=== PATIENT | female | born 1935 | race Caucasian/White ===

== ENCOUNTER 2016-07-03 17:57 | Inpatient (IN) ==
[2016-07-03 18:35] LABS: Bilirubin,Urine Negative (Negative); Blood,Urine Negative (Negative); Clarity,Urine Clear (Clear); Color,Urine Yellow (Yellow); Glucose,Urine (UA) Normal (Normal); Ketones,Urine Negative (Negative); Leukocyte Esterase,Urine Negative (Negative); Nitrite,Urine Negative (Negative); Protein,Urine Negative (Neg-Trace); Specific Gravity,Urine 1.013 (1.010-1.025); Urobilinogen,Urine Normal (Normal)
--- NOTE | 2016-07-03 19:08 | Emergency Department Note ---
Disposition Clinical Impression: Hip fracture, right Disposition: Admitted As Inpatient Condition: Good Fall HPI - General Chief Complaint: ED Fall Stated Complaint: FALL Source: patient, EMS Nursing Notes Reviewed: Yes Vital Signs Reviewed: Yes - History of Present Illness HPI Narrative: Patient presents with complaint of right hip pain status post fall. Patient states she was slip and fall and hit her side. Patient denies loss of consciousness denies head injury. Patient complains of pain in her hip and inability to ambulate. Patient denies numbness numbness or tingling denies bowel bladder dysfunction associated with this. Patient denies shortness of breath denies cough. She denies dizziness or vision changes. - Related Data Home Medications Medication Instructions Recorded Confirmed Budesonide/Formoterol 160/4.5 2 puff IH BID 02/20/15 02/22/16 [Symbicort] Clopidogrel [Plavix] 75 mg PO DAILY 02/20/15 02/22/16 Furosemide [Lasix] 40 mg PO DAILY 02/20/15 02/22/16 Potassium Chloride 20 meq PO DAILY 02/20/15 02/22/16 Tiotropium [Spiriva] 18 mcg IH DAILY 02/20/15 02/22/16 TraMADol [Ultram] 50 mg PO Q6HR PRN 02/20/15 02/22/16 BuPROPion SR (12 HR) [Wellbutrin 150 mg PO BID 03/25/15 02/22/16 SR] Sertraline [Zoloft] 100 mg PO DAILY 03/25/15 02/22/16 Donepezil [Aricept] 10 mg PO HS 04/03/15 02/22/16 Alendronate Sodium [Fosamax] 70 mg PO MO 07/09/15 02/22/16 Ascorbate Calcium [Vitamin C] 500 mg PO DAILY 07/09/15 02/22/16 Aspirin [Adult Low Dose Aspirin EC] 81 mg PO DAILY 07/09/15 02/22/16 Calcium Carbonate/Vitamin D3 1 tab PO DAILY 07/09/15 02/22/16 [Calcium 500-Vit D3 400 Tablet] Ferrous Sulfate 325 mg PO DAILY 07/09/15 02/22/16 Isosorbide MONOnitrate (24 HR) 60 mg PO DAILY 07/09/15 02/22/16 [Imdur] LORazepam [Ativan] 0.5 mg PO QID PRN 07/09/15 02/22/16 Losartan [Cozaar] 100 mg PO DAILY 07/09/15 02/22/16 Metoprolol XL (24 HR) Succ [Toprol 25 mg PO DAILY 07/09/15 02/22/16 Xl] Simvastatin [Zocor] 40 mg PO QPM 07/09/15 02/22/16 Hydralazine HCl 50 mg PO TID 11/27/15 02/22/16 Cholecalciferol (D-3) [Vitamin D] 1,000 unit PO DAILY 02/22/16 02/22/16 Ipratropium/Albuterol Neb [Duoneb] TID 07/03/16 Previous Rx's Medication Instructions Recorded Nitroglycerin [Nitrostat] 0.4 mg SL PRN PRN #30 tab.subl 02/26/16 Megestrol Acetate [Megace] 800 mg PO DAILY #400 mls 06/08/16 Allergies Allergy/AdvReac Type Severity Reaction Status Date / Time citalopram [From Celexa] Allergy Abdominal Verified 02/22/16 11:35 Pain haloperidol [From Haldol] Allergy Hallucinati Verified 02/22/16 11:35 ng amlodipine [From Norvasc] AdvReac Nausea Verified 02/22/16 11:35 roflumilast [From Daliresp] AdvReac Difficulty Verified 02/22/16 11:35 Breathing All systems ED: reviewed and negative except as stated. Fall PMH - Past Medical History Medical history: Reports: arthritis, CHF, COPD, coronary artery disease, hypertension, myocardial infarction, renal disease Surgical history: Reports: cholecystectomy, hysterectomy, other Psychiatric history: Reports: anxiety, depression - Social History Smoking Status: Former smoker Alcohol use: Reports: none Drug use: Reports: none Physical Exam - General Limitations: no limitations General appearance: alert - Head Head exam: atraumatic, normocephalic, normal inspection - Eye Eye exam: Present: normal appearance, PERRL, EOMI - ENT ENT exam: normal exam, normal oropharynx, mucous membranes moist - Neck Neck exam: Present: normal inspection, full ROM, trachea midline - Chest Chest inspection: Present: normal inspection, symmetric chest wall rise - Respiratory Respiratory exam: Present: normal lung sounds bilaterally - Cardiovascular Cardiovascular exam: Present: regular rate, normal rhythm, normal heart sounds - Abdominal Exam Abdominal exam: Present: soft, Non-Tender. Absent: tenderness, distention, guarding, rebound, rigidity - Extremities Exam Extremities exam: Present: normal inspection, full ROM, other (Tenderness to palpation to lateral medial left knee). Absent: tenderness, pedal edema - Expanded Lower Extremity Exam Hip/Pelvis exam: Present: other (Right tenderness to palpation with internal and external rotation.) - Back Exam Back exam: Present: normal inspection, full ROM. Absent: tenderness - Neurological Exam Neurological exam: Present: alert, oriented X3 - Psychiatric Psychiatric exam: Present: normal affect, normal mood - Skin Skin exam: Present: warm, dry, intact, normal color Course Vital Signs Temperature 98.3 F 07/03/16 18:00 Pulse Rate 80 07/03/16 18:00 Respiratory Rate 16 07/03/16 18:00 Blood Pressure 137/66 07/03/16 18:00 O2 Sat by Pulse Oximetry 92 L 07/03/16 18:00 Temperature 98.1 F 07/03/16 21:51 Pulse Rate 81 07/03/16 21:51 Respiratory Rate 15 07/03/16 21:51 Blood Pressure 107/56 07/03/16 21:51 O2 Sat by Pulse Oximetry 96 07/03/16 21:51 Oxygen Delivery Oxygen Delivery Room Air Fall - Differential Diagnosis Likely: traumatic injury - Medical Records Medical records reviewed: Yes I reviewed the patient's medical records. - Lab Data Lab results reviewed: Yes I reviewed the patient's lab results. Result diagrams: 07/03/16 19:26 07/03/16 19:26 Lab Results 07/03/16 07/03/16 07/03/16 Range/Units 18:25 19:26 19:26 WBC 13.1 H D (4.3-11.1) K/mcL RBC 3.08 L (3.82-4.97) M/mcL Hgb 9.4 L (11.5-15.4) g/dL Hct 30.9 L (35.3-44.9) % MCV 100.3 H (83.0-100.0) fL MCH 30.5 (28.0-33.3) pg MCHC 30.4 L (31.6-35.5) g/dL RDW 12.6 (11.5-14.5) % Plt Count 252 (140-400) K/mcL MPV 9.5 (9.4-12.4) fL Immature Gran % 0.8 (0-4) % Seg Neutrophils % 87.2 % Lymphocytes % 4.8 % Monocytes % 4.9 % Eosinophils % 1.8 % Basophils % 0.5 % Neutrophils # 11.4 H (1.6-8.9) K/mcL Lymphocytes # 0.6 (0.6-4.6) K/mcL Monocytes # 0.6 (0.0-1.3) K/mcL Eosinophils # 0.2 (0.0-0.6) K/mcL Basophils # 0.1 (0.0-0.2) K/mcL PT (9.4-12.1) Seconds INR APTT (26.0-36.0) Seconds VBG pH (7.32-7.42) pH Units VBG pCO2 (41-51) mmHg VBG pO2 (25-40) mmHg VBG HCO3 (21-27) mEq/L Sodium 142 (136-145) mEq/L Potassium 4.4 (3.5-4.5) mEq/L Chloride 111 H (98-109) mEq/L Carbon Dioxide 21 (19-29) mEq/L BUN 22 H (7-20) mg/dL Creatinine 1.21 H (0.57-1.11) mg/dL Est GFR ( Amer) 52 L (> 60) Est GFR (Non-Af Amer) 43 L (> 60) BUN/Creatinine Ratio 18 (6-26) Glucose 97 (70-99) mg/dL Calculated Osmolality 297 (280-300) Lactic Acid (0.5-2.2) mmol/L Calcium 8.9 (8.6-10.8) mg/dL Phosphorus (2.3-4.7) mg/dL Magnesium (1.6-2.6) mg/dL Total Bilirubin 0.3 (0.2-1.2) mg/dL AST 25 (5-34) Units/L ALT 16 (0-55) Units/L Alkaline Phosphatase 48 (38-126) Units/L Troponin I (0-0.03) ng/mL Serum Total Protein 6.4 (6.0-8.3) g/dL Albumin 3.4 L (3.5-5.0) g/dL Globulin 3.0 (2.4-3.5) g/dL Albumin/Globulin Ratio 1.1 (1.1-2.2) Urine Color Yellow (Yellow) Urine Clarity Clear (Clear) Urine pH 5.0 (5.0-8.0) pH Units Ur Specific [place] 1.013 (1.010-1.025) Urine Protein Negative (Neg-Trace) mg/dL Urine Glucose (UA) Normal (Normal) mg/dL Urine Ketones Negative (Negative) mg/dL Urine Blood Negative (Negative) Urine Nitrite Negative (Negative) Urine Bilirubin Negative (Negative) Urine Urobilinogen Normal (Normal) mg/dL Ur Leukocyte Esterase Negative (Negative) Ur Culture Indicated? NO (NO) 07/03/16 07/03/16 07/03/16 Range/Units 19:26 19:26 19:26 WBC (4.3-11.1) K/mcL RBC (3.82-4.97) M/mcL Hgb (11.5-15.4) g/dL Hct (35.3-44.9) % MCV (83.0-100.0) fL MCH (28.0-33.3) pg MCHC (31.6-35.5) g/dL RDW (11.5-14.5) % Plt Count (140-400) K/mcL MPV (9.4-12.4) fL Immature Gran % (0-4) % Seg Neutrophils % % Lymphocytes % % Monocytes % % Eosinophils % % Basophils % % Neutrophils # (1.6-8.9) K/mcL Lymphocytes # (0.6-4.6) K/mcL Monocytes # (0.0-1.3) K/mcL Eosinophils # (0.0-0.6) K/mcL Basophils # (0.0-0.2) K/mcL PT 11.9 (9.4-12.1) Seconds INR 1.1 APTT 25.8 L (26.0-36.0) Seconds VBG pH (7.32-7.42) pH Units VBG pCO2 (41-51) mmHg VBG pO2 (25-40) mmHg VBG HCO3 (21-27) mEq/L Sodium (136-145) mEq/L Potassium (3.5-4.5) mEq/L Chloride (98-109) mEq/L Carbon Dioxide (19-29) mEq/L BUN (7-20) mg/dL Creatinine (0.57-1.11) mg/dL Est GFR ( Amer) (> 60) Est GFR (Non-Af Amer) (> 60) BUN/Creatinine Ratio (6-26) Glucose (70-99) mg/dL Calculated Osmolality (280-300) Lactic Acid 0.9 (0.5-2.2) mmol/L Calcium (8.6-10.8) mg/dL Phosphorus (2.3-4.7) mg/dL Magnesium (1.6-2.6) mg/dL Total Bilirubin (0.2-1.2) mg/dL AST (5-34) Units/L ALT (0-55) Units/L Alkaline Phosphatase (38-126) Units/L Troponin I 0.02 (0-0.03) ng/mL Serum Total Protein (6.0-8.3) g/dL Albumin (3.5-5.0) g/dL Globulin (2.4-3.5) g/dL Albumin/Globulin Ratio (1.1-2.2) Urine Color (Yellow) Urine Clarity (Clear) Urine pH (5.0-8.0) pH Units Ur Specific [place] (1.010-1.025) Urine Protein (Neg-Trace) mg/dL Urine Glucose (UA) (Normal) mg/dL Urine Ketones (Negative) mg/dL Urine Blood (Negative) Urine Nitrite (Negative) Urine Bilirubin (Negative) Urine Urobilinogen (Normal) mg/dL Ur Leukocyte Esterase (Negative) Ur Culture Indicated? (NO) 07/03/16 07/03/16 07/03/16 Range/Units 22:46 22:46 22:46 WBC (4.3-11.1) K/mcL RBC (3.82-4.97) M/mcL Hgb (11.5-15.4) g/dL Hct (35.3-44.9) % MCV (83.0-100.0) fL MCH (28.0-33.3) pg MCHC (31.6-35.5) g/dL RDW (11.5-14.5) % Plt Count (140-400) K/mcL MPV (9.4-12.4) fL Immature Gran % (0-4) % Seg Neutrophils % % Lymphocytes % % Monocytes % % Eosinophils % % Basophils % % Neutrophils # (1.6-8.9) K/mcL Lymphocytes # (0.6-4.6) K/mcL Monocytes # (0.0-1.3) K/mcL Eosinophils # (0.0-0.6) K/mcL Basophils # (0.0-0.2) K/mcL PT (9.4-12.1) Seconds INR APTT (26.0-36.0) Seconds VBG pH 7.41 (7.32-7.42) pH Units VBG pCO2 38 L (41-51) mmHg VBG pO2 64 H (25-40) mmHg VBG HCO3 24.1 (21-27) mEq/L Sodium (136-145) mEq/L Potassium (3.5-4.5) mEq/L Chloride (98-109) mEq/L Carbon Dioxide (19-29) mEq/L BUN (7-20) mg/dL Creatinine (0.57-1.11) mg/dL Est GFR ( Amer) (> 60) Est GFR (Non-Af Amer) (> 60) BUN/Creatinine Ratio (6-26) Glucose (70-99) mg/dL Calculated Osmolality (280-300) Lactic Acid (0.5-2.2) mmol/L Calcium (8.6-10.8) mg/dL Phosphorus 2.9 (2.3-4.7) mg/dL Magnesium 1.5 L (1.6-2.6) mg/dL Total Bilirubin (0.2-1.2) mg/dL AST (5-34) Units/L ALT (0-55) Units/L Alkaline Phosphatase (38-126) Units/L Troponin I 0.01 (0-0.03) ng/mL Serum Total Protein (6.0-8.3) g/dL Albumin (3.5-5.0) g/dL Globulin (2.4-3.5) g/dL Albumin/Globulin Ratio (1.1-2.2) Urine Color (Yellow) Urine Clarity (Clear) Urine pH (5.0-8.0) pH Units Ur Specific [place] (1.010-1.025) Urine Protein (Neg-Trace) mg/dL Urine Glucose (UA) (Normal) mg/dL Urine Ketones (Negative) mg/dL Urine Blood (Negative) Urine Nitrite (Negative) Urine Bilirubin (Negative) Urine Urobilinogen (Normal) mg/dL Ur Leukocyte Esterase (Negative) Ur Culture Indicated? (NO) - Radiology Data Radiology results reviewed: Yes I reviewed the patient's radiology results. Abdomen/Pelvis CT 07/03/16 18:01 IMPRESSION: 1. Soft tissue hematoma overlying the right greater trochanter. 2. Mildly displaced fracture involving the right inferior pubic ramus nondisplaced fractures involving the parasymphyseal region of the right superior pubic ramus, along with the anterior column of the right acetabulum. 3. Stable indeterminate nodule involving the right middle lobe. 4. Diverticulosis. 5. Cardiomegaly and trace pericardial effusion, stable. Small hiatal hernia. 6. Moderate, midline ventral hernia containing fat. No evidence of obstruction. 7. Stable intrahepatic and extrahepatic bile duct dilatation. Post cholecystectomy changes. D/ / 07/03/2016 20:03:16 Rusty Finn MD / ria Interpreting Provider: Rusty Finn MD Head CT 07/03/16 18:01 IMPRESSION: No acute intracranial abnormality. D/ / Price Macias MD / Price Macias MD Interpreting Provider: Price Macias MD Knee X-Ray 07/03/16 18:02 IMPRESSION: 1. No acute fracture or dislocation. 2. Moderate tricompartmental osteoarthritis. D/ / 07/03/2016 18:49:25 Rusty Finn MD / ria Interpreting Provider: Rusty Finn MD
[2016-07-03] MEDS ORDERED: *HR* Morphine 2 MG/ML SYRINGE IV ONE (19:21)
[2016-07-03 19:34] LABS: Basophils # 0.1 K/mcL (0.0-0.2); Basophils % 0.5 %; Eosinophils # 0.2 K/mcL (0.0-0.6); Eosinophils % 1.8 %; Hematocrit 30.9 % (35.3-44.9); Hemoglobin 9.4 g/dL (11.5-15.4); Immature Granulocytes % 0.8 % (0-4); Lymphocytes # 0.6 K/mcL (0.6-4.6); Lymphocytes % 4.8 %; Mean Corpuscular HGB Conc 30.4 g/dL (31.6-35.5); Mean Corpuscular Hemoglobin 30.5 pg (28.0-33.3); Mean Corpuscular Volume 100.3 fL (83.0-100.0); Mean Platelet Volume 9.5 fL (9.4-12.4); Monocytes # 0.6 K/mcL (0.0-1.3); Monocytes % 4.9 %; Neutrophils # 11.4 K/mcL (1.6-8.9); Platelet Count 252 K/mcL (140-400); Red Blood Count 3.08 M/mcL (3.82-4.97); Red Cell Distribution Width 12.6 % (11.5-14.5); Segmented Neutrophils % 87.2 %
[2016-07-03 19:39] LABS: INR 1.1; Prothrombin Time 11.9 Seconds (9.4-12.1)
[2016-07-03 19:42] LABS: Activated Partial Thrombo Time 25.8 Seconds (26.0-36.0)
[2016-07-03 19:48] LABS: Albumin 3.4 g/dL (3.5-5.0); Albumin/Globulin Ratio 1.1 (1.1-2.2); Bilirubin,Total 0.3 mg/dL (0.2-1.2); Calcium 8.9 mg/dL (8.6-10.8); Potassium 4.4 mEq/L (3.5-4.5); Total Protein 6.4 g/dL (6.0-8.3)
[2016-07-03] MEDS ORDERED: *HR* Morphine 2 MG/ML SYRINGE IVP ONE (20:56)
[2016-07-03] MEDS ORDERED: *HR* LORazepam 2 MG/ML VIAL IVP ONE (20:56)
[2016-07-03] MEDS ORDERED: Nitroglycerin 0.4 MG TAB.SUBL SL PRN (22:13)
[2016-07-03] MEDS ORDERED: Naloxone 0.4 MG/ML INJ IVP PRN (22:18)
[2016-07-03] MEDS ORDERED: Mag Hydrox/Al Hydrox/Simeth 30 ML UDC PO PRN (22:18)
[2016-07-03] MEDS ORDERED: Benzonatate 100 MG CAPSULE PO PRN (22:18)
[2016-07-03] MEDS ORDERED: Ondansetron 4 MG/2 ML VIAL IVP PRN (22:18)
[2016-07-03] MEDS ORDERED: Pantoprazole 40 MG VIAL IVP STA (22:18)
[2016-07-03] MEDS ORDERED: Ipratropium/Albuterol Neb 3 ML IH PRN (22:18)
[2016-07-03] MEDS: *HR* OxyCODONE Immed Rel 5 MG TABLET PO PRN (22:55)
[2016-07-03] MEDS: 0.9 % Sodium Chloride 1,000 ML IVC SCH (22:56)
[2016-07-03] MEDS: *HR* Heparin 5,000 UNIT/ML VIAL SQ SCH (23:00)
[2016-07-03 23:04] LABS: Magnesium 1.5 mg/dL (1.6-2.6); Phosphorous 2.9 mg/dL (2.3-4.7)
[2016-07-03 23:15] LABS: VBG HCO3 24.1 mEq/L (21-27); VBG PH 7.41 pH Units (7.32-7.42)
[2016-07-04] MEDS: *HR* LORazepam 0.5 MG TABLET PO PRN ×2 (00:10→13:20)
[2016-07-04] MEDS: *HR* Morphine 2 MG/ML SYRINGE IVP PRN ×6 (02:29→20:06)
--- NOTE | 2016-07-04 03:34 | Internal Med History&Physical ---
Date of Encounter: 07/03/16 Time of Encounter: 22:00 Assessment and Plan (1) Falls frequently Status: Chronic . (2) Hematoma of right hip Status: Acute . Qualifiers: Encounter type: initial encounter Qualified Code(s): S70.01XA - Contusion of right hip, initial encounter (3) Pelvis fracture, right Status: Acute . Qualifiers: Encounter type: initial encounter Fracture type: closed Qualified Code(s) : S32.9XXA - Fracture of unspecified parts of lumbosacral spine and pelvis, initial encounter for closed fracture (4) Inferior pubic ramus fracture Status: Acute . Qualifiers: Encounter type: initial encounter Fracture type: closed Laterality: right Qualified Code(s): S32.591A - Other specified fracture of right pubis, initial encounter for closed fracture (5) Fracture of superior pubic ramus Status: Acute . Qualifiers: Encounter type: initial encounter Fracture type: closed Laterality: right Qualified Code(s): S32.511A - Fracture of superior rim of right pubis, initial encounter for closed fracture (6) Acute kidney injury superimposed on CKD Status: Resolved . (7) Osteoporosis Status: Chronic . (8) Osteoarthritis involving multiple joints on both sides of body Status: Chronic . (9) Postural dizziness with presyncope Status: Acute . (10) CAD (coronary artery disease) Status: Chronic . Qualifiers: Coronary Disease-Associated Artery/Lesion type: [place] artery [place] vs. transplanted heart: [place] heart Associated angina: angina presence unspecified Qualified Code(s): I25.10 - Atherosclerotic heart disease of [place] coronary artery without angina pectoris (11) Hypertension Status: Chronic . Qualifiers: Hypertension type: essential hypertension Qualified Code(s): I10 - Essential (primary) hypertension (12) Polymyalgia rheumatica Status: Chronic . (13) Anemia, chronic disease Status: Chronic . (14) COPD (chronic obstructive pulmonary disease) Status: Chronic . Qualifiers: COPD type: unspecified COPD Qualified Code(s): J44.9 - Chronic obstructive pulmonary disease, unspecified (15) Iron deficiency Status: Chronic . 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 (17) SIRS (systemic inflammatory response syndrome) Status: Acute . Internal Medicine - H&P: HPI Chief complaint: Mechanical fall. Right hip pain. Admitted From: Emergency Dept Plans for Post Hospital Care: Home History of present illness: Ms. Khalil is a 81 year old female with history significant for COPD and emphysema, hypertension, dyslipidemia, CAD/PTCA/AMI, CHF unspecified, iron deficiency, anemia of chronic disease, dementia unspecified, frequent falls, osteoarthritis, osteoporosis, vitamin D deficiency, depression and anxiety, CKD III, nephrolithiasis, diverticulosis coli, former smoker. The patient was visited and interviewed and examined. Patient presents by EMS services from home with complaints of mechanical fall and sustaining acute right hip pain. She is admitted [facility] through the emergency department where evaluation and disposition. She denied any associated loss of consciousness or head injury. Acknowledges pain in the hip and inability to weight-bear and ambulate. Denies any affect of bowel or bladder function or evidence of bleeding. Denies shortness of breath chest pain headache vision deficits slurring of speech or unilateral weakness. Denies seizure. History is significant for frequent mechanical falls due to severe deconditioning. Findings in the ED: Temperature 98.3 pulse 77-80 respirations 16 BP 127-137/66- 83. O2 saturation 92-96% room air. WBC 13.1 hemoglobin 9.4 platelets 252,000. MCV 100.3. Differential shows no increase in neutrophils. Metabolic panel chloride 111. BUN 22 creatinine 1.1 and GFR 43. Glucose 97 osmolality 297. Hepatic function normal. Albumin 3.4-6.4. Urinalysis negative. PT 11.9 INR 1.1 PTT 25.8. Lactic acid 0.9. Troponin 0.02. CT abdomen and pelvis without contrast demonstrated soft tissue hematoma overlying the right greater trochanter. Mildly displaced fracture involving the right inferior pubic ramus. Non-displaced fractures involving the parasymphyseal region of the right superior pubic ramus, along the anterior column of the right acetabulum. Stable indeterminate no trouble involving the right middle lobe. Diverticulosis. Cardiomegaly with trace pericardial effusion. Small hiatal hernia. Moderate midline ventral hernia containing fat. No evidence of obstruction. Stable intrahepatic and extrahepatic bile duct dilatation. Postcholecystectomy changes. Bilateral nonobstructing renal calculi. CT head scan demonstrates no acute intracranial abnormality. No evidence for hemorrhage mass effect or midline shift fluid collection or acute infarct. No evidence of hydrocephalus. Chronic microvascular ischemic changes. Atherosclerosis of the intracranial vasculature. Left knee x-ray demonstrates moderate tricompartmental osteoarthritis. No acute fracture or dislocation. Preliminary impression suggests acute posttraumatic hematoma overlying right greater trochanter status post mechanical fall was associated right inferior pubic ramus and right superior pubic ramus pelvis fractures. Screening studies did not reveal another Injury status post fall. Laboratory data at patient's Baseline. Frequency of mechanical falls motivates evaluation to rule out a cardiogenic etiology that might be remedied will be pursued. Anticipate given pelvis fracture findings a non-surgical plan of care and emphasis on physical and occupational therapy. The patient is at risk for further acute decline and morbidity with this presentation given her clinical findings and comorbidities. Workup and treatment will proceed comprehensively. Cumulative laboratory and radiographic data base was reviewed, considered and discussed. Pertinent ancillary medical records including ECW and PCI documentation was reviewed and considered. Given the patient's presenting concerns, past medical history, clinical findings and symptoms, she is admitted at this time will undergo further evaluation and disposition. Orders were written as per the computerized physician grey stock recorder system.......................................................................... .................... Consultative opinions will be sought as clinical circumstances justify. Initial consultative opinion has been requested of orthopedic surgery. Pain management needs will be addressed. Laboratory and radiographic data base will be updated as appropriate. Studies include: PT/INR/APTT, prolactin, CPK, LDH, cardiac injury panel, BNP, metabolic and hematologic panel, magnesium, phosphorus, ionized calcium, thyroid panel, lipid profile, hgbA1c, C-peptide, CRP, sed rate, blood gas, ammonia, lactic acid , UA, serologies, etc. Precautions: Aspiration, fall, seizure, delirium protocol/surveillance initiated. Telemetry with continuous hemodynamic monitoring and pulse oximetry initiated. Orthostatic vital signs. Empiric antibiotic coverage: pending diagnostics/culture data. Special studies: CT chest/Head, CTabd/pelvis, knee x-rays, chest x-ray, telemetry, EKG. carotid US, echocardiogram. Pulmonary toilet: Incentive spirometry, aerosol bronchodilator, mucolytic, antitussive, supplemental oxygen. Corticosteroid therapyPRN. CPAP/BiPAP supplemental oxygen deliveryPRN. Aerosol Mucomyst therapyPRN. Fluid and electrolyte repletion efforts will proceed. Careful attention to fluid balance and renal recovery will be emphasized. Avoidance of nephrotoxic exposure and adverse drug drug interaction in the setting of impaired renal function will be monitored closely. Acute coronary syndrome protocol/surveillance initiated. DVT and PUD prophylaxis initiated: PPI therapy, intermittent pneumatic cuffs/ TEDs. Subcutaneous heparin/Lovenox. Early ambulation will be encouraged. Immunization updates recommended. Influenza and pneumococcal vaccinations as part of ongoing preventative healthcare recommendations strongly recommended. Smoking cessation counseling briefly addressed. Patient is a former smoker. Advanced care directive discussion briefly addressed. Patient does not declare any healthcare restrictions at this time. Cardiovascular risk appraisal and cardiovascular risk reduction efforts will be emphasized. Physical occupational therapy may be counseled to evaluate patient's function capacity and progressive mobility of her circumstances justify. Sliding scale insulin coverage, ADA dietary restraint and schedule an as-needed basis fingerstick glucose assessments were initiated. Nutrition/diabetes education counseling may be considered as circumstances justify. Outpatient medication schedules will be reviewed confirmed and facilitated as appropriate. Reconciliation of home treatments including adjustment substitutions and reintroduction into the treatment regimen as necessary maintenance therapies for chronic pre-existing medical conditions. Plan of care has been reviewed and discussed in detail with the patient. Questions addressed. Hospital course dictated by clinical findings, treatment response and potential consultative interventions. Patient is at risk for further acute clinical decline and morbidity due to her advanced age, presenting chief complaints, findings and comorbid conditions. Condition is serious. Prognosis is guarded. CODE STATUS is full. Past Med Surg Social Fam HX - Past Medical History Source: old records reviewed Medical history: arthritis, CHF, COPD, coronary artery disease, dementia, GERD, hyperlipidemia, hypertension, myocardial infarction, osteoporosis, peripheral artery disease, renal disease, other Psychiatric history: anxiety, depression - Past Surgical History Surgical History: cholecystectomy, hysterectomy, BHARATHI/BSO, other - Social History Smoking Status: Former smoker Smokeless Tobacco Status: No Alcohol use: none Drug use: none Occupational status: retired Current living situation: With Family Activity Level: Mostly sedentary Recent Out of Country Travel Within the Last 8 Weeks: No Exposure or Possible Exposure to Illness During Travel: No - Family History Father Living Status: Hx Family Cardiac Disorders: Yes Hx Family Cancer: Yes (RCC) Mother Name: murtle Living Status: Hx Family Cardiac Disorders: Yes Hx Family Cancer: Yes (bladder cancer) Internal Medicine - H&P: Meds Budesonide/Formoterol 160/4.5 [Symbicort] 2 puff IH BID 02/20/15 [History] Clopidogrel [Plavix] 75 mg PO DAILY 02/20/15 [History] Furosemide [Lasix] 40 mg PO DAILY 02/20/15 [History] Tiotropium [Spiriva] 18 mcg IH DAILY 02/20/15 [History] BuPROPion SR (12 HR) [Wellbutrin SR] 150 mg PO BID 03/25/15 [History] Sertraline [Zoloft] 100 mg PO DAILY 03/25/15 [History] Donepezil [Aricept] 10 mg PO HS 04/03/15 [History] Alendronate Sodium [Fosamax] 70 mg PO MO 07/09/15 [History] Ascorbate Calcium [Vitamin C] 500 mg PO DAILY 07/09/15 [History] Aspirin [Adult Low Dose Aspirin EC] 81 mg PO DAILY 07/09/15 [History] Calcium Carbonate/Vitamin D3 [Calcium 500-Vit D3 400 Tablet] 1 tab PO DAILY 04/13 [History] Ferrous Sulfate 325 mg PO DAILY 07/09/15 [History] Isosorbide MONOnitrate (24 HR) [Imdur] 60 mg PO DAILY 07/09/15 [History] Losartan [Cozaar] 100 mg PO DAILY 07/09/15 [History] Metoprolol XL (24 HR) Succ [Toprol Xl] 25 mg PO DAILY 07/09/15 [History] Simvastatin [Zocor] 20 mg PO QPM 07/09/15 [History] Hydralazine HCl 50 mg PO TID 11/27/15 [History] Cholecalciferol (D-3) [Vitamin D] 1,000 unit PO DAILY 02/22/16 [History] Nitroglycerin [Nitrostat] 0.4 mg SL PRN PRN #30 tab.subl 02/26/16 [Rx] Albuterol Neb [Proventil Neb] 2.5 mg IH Q4HR 07/04/16 [History] LORazepam [Ativan] 1 mg PO HS #10 07/12/16 [Rx] Tramadol HCl [Ultram] 50 mg PO TID PRN #20 tab 07/12/16 [Rx] HYDROcodone/Acet 7.5/325 mg [[place] 7.5-325 mg] 1 tab PO Q4H PRN 07/23/16 [ History] LORazepam [Ativan] 0.5 mg PO DAILY 07/23/16 [History] Multivitamin [Multi-Day Vitamins] 1 tab PO DAILY 07/23/16 [History] Potassium Chloride [Potassium Chloride] 20 meq PO BID 07/23/16 [History] Allergies citalopram [From Celexa] Allergy (Verified 07/22/16 23:44) Abdominal Pain haloperidol [From Haldol] Allergy (Verified 07/22/16 23:44) Hallucinating amlodipine [From Norvasc] Adverse Reaction (Verified 07/22/16 23:44) Nausea roflumilast [From Daliresp] Adverse Reaction (Verified 07/22/16 23:44) Difficulty Breathing All Systems PM: A 10-system review of systems was performed and is negative for pertinent findings except as documented above in the HPI. - Constitutional Constitutional: as per HPI, falls, weakness, no chills, no fever(s), no night sweats - EENT Eyes: as per HPI, no change in vision, no discharge, no pain, no photophobia Ears: as per HPI, no ear discharge, no ear pain, no tinnitus Nose, mouth and throat: as per HPI, no dysphagia, no nasal discharge, no neck pain, no sore throat - Cardiovascular Cardiovascular ROS IM: as per HPI, lightheadedness, syncope, other, no chest pain, no diaphoresis, no dyspnea, no palpitations - Respiratory Respiratory: as per HPI, dyspnea on exertion, other, no cough, no dyspnea, no wheezing, no excessive phlegm production - Gastrointestinal Gastrointestinal: as per HPI, no abdominal pain, no diarrhea, no hematemesis, no hematochezia, no melena, no nausea, no vomiting - Genitourinary Genitourinary: as per HPI, no change in urinary stream, no dysuria, no flank pain, no hematuria Menstruation: as per HPI, post hysterectomy, post menopausal - Musculoskeletal Musculoskeletal ROS IM: as per HPI, no numbness, no tingling - Integumentary Integumentary IM: as per HPI, no rash, no unusual bruising - Neurological Neurological ROS: as per HPI, frequent falls, weakness, other, no confusion, no convulsions, no focal weakness, no numbness, no tingling, no tremor(s) - Psychiatric Psychiatric: as per HPI - Endocrine Endocrine IM: as per HPI - Hematologic/Lymphatic Hematologic/Lymphatic: as per HPI, no easy bruising - Allergic/Immunologic Allergic/Immunologic: as per HPI - Constitutional Vitals: Temp Pulse Resp BP Pulse Ox 98.8 F 73 17 131/68 93 L 07/04/16 02:55 07/04/16 02:55 07/04/16 02:55 07/04/16 02:55 07/04/16 02:55 General appearance: Present: cachectic, cooperative, mild distress, A&O X 3, loss of weight, answers questions appropriately - Head Head exam: Present: atraumatic, normocephalic - Eye Eye exam: Present: EOMI, PERRL, conjuntiva pink, sclera anicteric Pupils: Present: miosis, normal accommodation, PERRL - ENT ENT exam: Present: mucous membranes moist, normal oropharynx - Neck Neck exam general surgery: Present: full ROM, supple, trachea midline. Absent: lymphadenopathy, tenderness, nuchal rigidity - Respiratory Respiratory exam: Present: decreased breath sounds, rhonchi. Absent: accessory muscle use, rales, wheezes - Cardiovascular Cardiovascular exam: Present: distant heart sounds, RRR, +S1, +S2. Absent: diastolic murmur, gallop, rubs, systolic murmur - GI/Abdominal GI/Abdominal exam: Present: normal bowel sounds, soft, no peritoneal signs. Absent: distended, tenderness - Extremities Exam Extremities exam: Present: full ROM, warm, radial pulses palpable and symetrical. Absent: calf tenderness, cyanotic, pedal edema - Neurological Exam Neurological exam: Present: alert, altered, CN II-XII intact, oriented X3, no focal deficits. Absent: pronater drift, facial droop, speech deficit - Psychiatric Psychiatric exam: Present: normal affect, normal mood - Skin Skin exam: Present: dry, intact, warm. Absent: petechiae, rash, urticaria, vesicles Internal Med - H&P Results - Labs CBC & Chem 7: 07/12/16 05:56 07/12/16 05:56 - Impressions Vital Signs Temp Pulse Resp BP Pulse Ox 07/04/16 02:55 98.8 F 73 17 131/68 93 L 07/03/16 21:51 98.1 F 81 15 107/56 96 07/03/16 21:18 15 100/62 07/03/16 20:52 69 16 122/80 96 07/03/16 20:29 84 16 153/78 97 07/03/16 19:37 77 16 127/83 96 07/03/16 19:19 79 16 104/75 95 07/03/16 18:00 98.3 F 80 16 137/66 92 L Intake and Output 07/03/16 07/03/16 07/04/16 15:59 23:59 07:59 Other: Weight 74.843 kg 77.111 kg Patient Weight 07/04/16 23:59 Weight 77.111 kg Short CBC 07/03/16 Range/Units 19:26 WBC 13.1 H D (4.3-11.1) K/mcL Hgb 9.4 L (11.5-15.4) g/dL Hct 30.9 L (35.3-44.9) % Plt Count 252 (140-400) K/mcL Neutrophils # 11.4 H (1.6-8.9) K/mcL BMP 07/03/16 Range/Units 19:26 Sodium 142 (136-145) mEq/L Potassium 4.4 (3.5-4.5) mEq/L Chloride 111 H (98-109) mEq/L Carbon Dioxide 21 (19-29) mEq/L BUN 22 H (7-20) mg/dL Creatinine 1.21 H (0.57-1.11) mg/dL Glucose 97 (70-99) mg/dL Calcium 8.9 (8.6-10.8) mg/dL Cardiac Enzymes 07/03/16 07/03/16 Range/Units 22:46 19:26 Troponin I 0.01 0.02 (0-0.03) ng/mL Liver Function 07/03/16 Range/Units 19:26 Total Bilirubin 0.3 (0.2-1.2) mg/dL AST 25 (5-34) Units/L ALT 16 (0-55) Units/L Alkaline Phosphatase 48 (38-126) Units/L Albumin 3.4 L (3.5-5.0) g/dL Urine 07/03/16 Range/Units 18:25 Urine Color Yellow (Yellow) Urine Clarity Clear (Clear) Urine pH 5.0 (5.0-8.0) pH Units Ur Specific [place] 1.013 (1.010-1.025) Urine Protein Negative (Neg-Trace) mg/dL Urine Glucose (UA) Normal (Normal) mg/dL 07/03/16 22:46 VBG pH 7.41 VBG pCO2 38 L VBG pO2 64 H VBG HCO3 24.1 Abnormal lab results WBC 13.1 K/mcL (4.3-11.1) H D 07/03/16 19:26 RBC 3.08 M/mcL (3.82-4.97) L 07/03/16 19:26 Hgb 9.4 g/dL (11.5-15.4) L 07/03/16 19:26 Hct 30.9 % (35.3-44.9) L 07/03/16 19:26 MCV 100.3 fL (83.0-100.0) H 07/03/16 19:26 MCHC 30.4 g/dL (31.6-35.5) L 07/03/16 19:26 Neutrophils # 11.4 K/mcL (1.6-8.9) H 07/03/16 19:26 APTT 25.8 Seconds (26.0-36.0) L 07/03/16 19:26 VBG pCO2 38 mmHg (41-51) L 07/03/16 22:46 VBG pO2 64 mmHg (25-40) H 07/03/16 22:46 Chloride 111 mEq/L (98-109) H 07/03/16 19:26 BUN 22 mg/dL (7-20) H 07/03/16 19:26 Creatinine 1.21 mg/dL (0.57-1.11) H 07/03/16 19:26 Est GFR ( Amer) 52 (> 60) L 07/03/16 19:26 Est GFR (Non-Af Amer) 43 (> 60) L 07/03/16 19:26 Magnesium 1.5 mg/dL (1.6-2.6) L 07/03/16 22:46 Albumin 3.4 g/dL (3.5-5.0) L 07/03/16 19:26 Allergies Allergy/AdvReac Type Severity Reaction Status Date / Time citalopram [From Celexa] Allergy Abdominal Verified 02/22/16 11:35 Pain haloperidol [From Haldol] Allergy Hallucinati Verified 02/22/16 11:35 ng amlodipine [From Norvasc] AdvReac Nausea Verified 02/22/16 11:35 roflumilast [From Daliresp] AdvReac Difficulty Verified 02/22/16 11:35 Breathing Laboratory Results WBC 13.1 K/mcL (4.3-11.1) H D 07/03/16 19: RBC 3.08 M/mcL (3.82-4.97) L 07/03/16 19: Hgb 9.4 g/dL (11.5-15.4) L 07/03/16 19: Hct 30.9 % (35.3-44.9) L 07/03/16 19: MCV 100.3 fL (83.0-100.0) H 07/03/16 19: MCH 30.5 pg (28.0-33.3) 07/03/16 19: MCHC 30.4 g/dL (31.6-35.5) L 07/03/16 19: RDW 12.6 % (11.5-14.5) 07/03/16 19: Plt Count 252 K/mcL (140-400) 07/03/16 19: MPV 9.5 fL (9.4-12.4) 07/03/16 19: Immature Gran % 0.8 % (0-4) 07/03/16 19: Seg Neutrophils % 87.2 % 07/03/16 19: Lymphocytes % 4.8 % 07/03/16 19: Monocytes % 4.9 % 07/03/16 19: Eosinophils % 1.8 % 07/03/16 19: Basophils % 0.5 % 07/03/16 19: Neutrophils # 11.4 K/mcL (1.6-8.9) H 07/03/16 19: Lymphocytes # 0.6 K/mcL (0.6-4.6) 07/03/16 19: Monocytes # 0.6 K/mcL (0.0-1.3) 07/03/16 19:26 Eosinophils # 0.2 K/mcL (0.0-0.6) 07/03/16 19:26 Basophils # 0.1 K/mcL (0.0-0.2) 07/03/16 19:26 PT 11.9 Seconds (9.4-12.1) 07/03/16 19:26 INR 1.1 07/03/16 19:26 APTT 25.8 Seconds (26.0-36.0) L 07/03/16 19:26 VBG pH 7.41 pH Units (7.32-7.42) 07/03/16 22:46 VBG pCO2 38 mmHg (41-51) L 07/03/16 22:46 VBG pO2 64 mmHg (25-40) H 07/03/16 22:46 VBG HCO3 24.1 mEq/L (21-27) 07/03/16 22:46 Sodium 142 mEq/L (136-145) 07/03/16 19:26 Potassium 4.4 mEq/L (3.5-4.5) 07/03/16 19:26 Chloride 111 mEq/L (98-109) H 07/03/16 19:26 Carbon Dioxide 21 mEq/L (19-29) 07/03/16 19:26 BUN 22 mg/dL (7-20) H 07/03/16 19:26 Creatinine 1.21 mg/dL (0.57-1.11) H 07/03/16 19:26 Est GFR ( Amer) 52 (> 60) L 07/03/16 19:26 Est GFR (Non-Af Amer) 43 (> 60) L 07/03/16 19:26 BUN/Creatinine Ratio 18 (6-26) 07/03/16 19:26 Glucose 97 mg/dL (70-99) 07/03/16 19:26 Calculated Osmolality 297 (280-300) 07/03/16 19:26 Lactic Acid 0.9 mmol/L (0.5-2.2) 07/03/16 19:26 Calcium 8.9 mg/dL (8.6-10.8) 07/03/16 19:26 Phosphorus 2.9 mg/dL (2.3-4.7) 07/03/16 22:46 Magnesium 1.5 mg/dL (1.6-2.6) L 07/03/16 22:46 Total Bilirubin 0.3 mg/dL (0.2-1.2) 07/03/16 19:26 AST 25 Units/L (5-34) 07/03/16 19:26 ALT 16 Units/L (0-55) 07/03/16 19:26 Alkaline Phosphatase 48 Units/L (38-126) 07/03/16 19:26 Troponin I 0.01 ng/mL (0-0.03) 07/03/16 22:46 Serum Total Protein 6.4 g/dL (6.0-8.3) 07/03/16 19:26 Albumin 3.4 g/dL (3.5-5.0) L 07/03/16 19:26 Globulin 3.0 g/dL (2.4-3.5) 07/03/16 19:26 Albumin/Globulin Ratio 1.1 (1.1-2.2) 07/03/16 19:26 Urine Color Yellow (Yellow) 07/03/16 18:25 Urine Clarity Clear (Clear) 07/03/16 18:25 Urine pH 5.0 pH Units (5.0-8.0) 07/03/16 18:25 Ur Specific [place] 1.013 (1.010-1.025) 07/03/16 18:25 Urine Protein Negative mg/dL (Neg-Trace) 07/03/16 18:25 Urine Glucose (UA) Normal mg/dL (Normal) 07/03/16 18:25 Urine Ketones Negative mg/dL (Negative) 07/03/16 18:25 Urine Blood Negative (Negative) 07/03/16 18:25 Urine Nitrite Negative (Negative) 07/03/16 18:25 Urine Bilirubin Negative (Negative) 07/03/16 18:25 Urine Urobilinogen Normal mg/dL (Normal) 07/03/16 18:25 Ur Leukocyte Esterase Negative (Negative) 07/03/16 18:25 Ur Culture Indicated? NO (NO) 07/03/16 18:25 Impressions Abdomen/Pelvis CT 07/03/16 18:01 IMPRESSION: 1. Soft tissue hematoma overlying the right greater trochanter. 2. Mildly displaced fracture involving the right inferior pubic ramus nondisplaced fractures involving the parasymphyseal region of the right superior pubic ramus, along with the anterior column of the right acetabulum. 3. Stable indeterminate nodule involving the right middle lobe. 4. Diverticulosis. 5. Cardiomegaly and trace pericardial effusion, stable. Small hiatal hernia. 6. Moderate, midline ventral hernia containing fat. No evidence of obstruction. 7. Stable intrahepatic and extrahepatic bile duct dilatation. Post cholecystectomy changes. D/ / 07/03/2016 20:03:16 Rusty Finn MD / ria Interpreting Provider: Rusty Finn MD Head CT 07/03/16 18:01 IMPRESSION: No acute intracranial abnormality. D/ / Price Macias MD / Price Macias MD Interpreting Provider: Price Macias MD Knee X-Ray 07/03/16 18:02 IMPRESSION: 1. No acute fracture or dislocation. 2. Moderate tricompartmental osteoarthritis. D/ / 07/03/2016 18:49:25 Rusty Finn MD / ria Interpreting Provider: Rusty Finn MD - VTE Documentation of Mechanical Device: Intermittent pneumatic compression device
[2016-07-04] MEDS ORDERED: Albuterol 2.5 MG/3 ML NEBULIZER IH PRN (03:59)
[2016-07-04 04:06] LABS: Hematocrit 27.5 % (35.3-44.9); Hemoglobin 8.4 g/dL (11.5-15.4); Mean Corpuscular HGB Conc 30.5 g/dL (31.6-35.5); Mean Corpuscular Hemoglobin 30.2 pg (28.0-33.3); Mean Corpuscular Volume 98.9 fL (83.0-100.0); Platelet Count 232 K/mcL (140-400); Red Blood Count 2.78 M/mcL (3.82-4.97); Red Cell Distribution Width 12.7 % (11.5-14.5)
[2016-07-04 04:21] LABS: Calcium 8.5 mg/dL (8.6-10.8); Chol/HDL Ratio 3.3 (0-4.9); Potassium 4.2 mEq/L (3.5-4.5)
[2016-07-04 04:42] LABS: Thyroid Stimulating Hormone 3.141 mcIU/mL (0.350-4.840)
--- NOTE | 2016-07-04 06:30 | Orthopedic Consult Note ---
Date of Encounter: 07/04/16 Time of Encounter: 06:29 History of Present Illness HPI: Ms. Khalil is a 81 year old female Patient seen this morning status post fall yesterday complains of pain right hip groin area. Physical exam Right lower extremity Neurovascular intact Decreased range of motion secondary to pain CT scan of pelvis reviewed shows pelvic rami fracture possible nondisplaced acetabular fracture Nonoperative treatment weightbearing as tolerated. Past Med Surg Social Fam HX - Past Medical History Medical history: arthritis, CHF, COPD, coronary artery disease, dementia, GERD, hyperlipidemia, hypertension, myocardial infarction, osteoporosis, peripheral artery disease, renal disease, other Psychiatric history: anxiety, depression - Past Surgical History Surgical History: cholecystectomy, hysterectomy, BHARATHI/BSO, other - Social History Smoking Status: Former smoker Smokeless Tobacco Status: No Alcohol use: none Drug use: none - Family History Father Living Status: Hx Family Cardiac Disorders: Yes Hx Family Cancer: Yes (RCC) Mother Name: isidoro Living Status: Hx Family Cardiac Disorders: Yes Hx Family Cancer: Yes (bladder cancer) Medications and Allergies Budesonide/Formoterol 160/4.5 [Symbicort] 2 puff IH BID 02/20/15 [History] Clopidogrel [Plavix] 75 mg PO DAILY 02/20/15 [History] Furosemide [Lasix] 40 mg PO DAILY 02/20/15 [History] Potassium Chloride 20 meq PO DAILY 02/20/15 [History] Tiotropium [Spiriva] 18 mcg IH DAILY 02/20/15 [History] TraMADol [Ultram] 50 mg PO Q6HR PRN 02/20/15 [History] BuPROPion SR (12 HR) [Wellbutrin SR] 150 mg PO BID 03/25/15 [History] Sertraline [Zoloft] 100 mg PO DAILY 03/25/15 [History] Donepezil [Aricept] 10 mg PO HS 04/03/15 [History] Alendronate Sodium [Fosamax] 70 mg PO MO 07/09/15 [History] Ascorbate Calcium [Vitamin C] 500 mg PO DAILY 07/09/15 [History] Aspirin [Adult Low Dose Aspirin EC] 81 mg PO DAILY 07/09/15 [History] Calcium Carbonate/Vitamin D3 [Calcium 500-Vit D3 400 Tablet] 1 tab PO DAILY 04/13 [History] Ferrous Sulfate 325 mg PO DAILY 07/09/15 [History] Isosorbide MONOnitrate (24 HR) [Imdur] 60 mg PO DAILY 07/09/15 [History] LORazepam [Ativan] 0.5 mg PO QID PRN 07/09/15 [History] Losartan [Cozaar] 100 mg PO DAILY 07/09/15 [History] Metoprolol XL (24 HR) Succ [Toprol Xl] 25 mg PO DAILY 07/09/15 [History] Simvastatin [Zocor] 40 mg PO QPM 07/09/15 [History] Hydralazine HCl 50 mg PO TID 11/27/15 [History] Cholecalciferol (D-3) [Vitamin D] 1,000 unit PO DAILY 02/22/16 [History] Nitroglycerin [Nitrostat] 0.4 mg SL PRN PRN #30 tab.subl 02/26/16 [Rx] Megestrol Acetate [Megace] 800 mg PO DAILY #400 mls 06/08/16 [Rx] Ipratropium/Albuterol Neb [Duoneb] TID 07/03/16 [History] Allergies citalopram [From Celexa] Allergy (Verified 02/22/16 11:35) Abdominal Pain haloperidol [From Haldol] Allergy (Verified 02/22/16 11:35) Hallucinating amlodipine [From Norvasc] Adverse Reaction (Verified 02/22/16 11:35) Nausea roflumilast [From Daliresp] Adverse Reaction (Verified 02/22/16 11:35) Difficulty Breathing All Systems Reviewed: A 10-system review of systems was performed and is negative for pertinent findings except as documented above in the HPI. Physical Exam - Constitutional Vitals: Temp Pulse Resp BP Pulse Ox 98.8 F 73 17 131/68 93 L 07/04/16 02:55 07/04/16 02:55 07/04/16 02:55 07/04/16 02:55 07/04/16 02:55 Results - Labs Result Diagrams: 07/04/16 03:44 07/04/16 03:44 Labs: Abnormal lab results RBC 2.78 M/mcL (3.82-4.97) L 07/04/16 03:44 Hgb 8.4 g/dL (11.5-15.4) L 07/04/16 03:44 Hct 27.5 % (35.3-44.9) L 07/04/16 03:44 MCHC 30.5 g/dL (31.6-35.5) L 07/04/16 03:44 Neutrophils # 11.4 K/mcL (1.6-8.9) H 07/03/16 19:26 APTT 25.8 Seconds (26.0-36.0) L 07/03/16 19:26 VBG pCO2 38 mmHg (41-51) L 07/03/16 22:46 VBG pO2 64 mmHg (25-40) H 07/03/16 22:46 Chloride 111 mEq/L (98-109) H 07/04/16 03:44 BUN 22 mg/dL (7-20) H 07/04/16 03:44 Creatinine 1.18 mg/dL (0.57-1.11) H 07/04/16 03:44 Est GFR ( Amer) 54 (> 60) L 07/04/16 03:44 Est GFR (Non-Af Amer) 44 (> 60) L 07/04/16 03:44 Calcium 8.5 mg/dL (8.6-10.8) L 07/04/16 03:44 Magnesium 1.5 mg/dL (1.6-2.6) L 07/03/16 22:46 Albumin 3.4 g/dL (3.5-5.0) L 07/03/16 19:26 HDL Cholesterol 32 mg/dL (40-59) L 07/04/16 03:44 H & H 07/04/16 Range/Units 03:44 Hgb 8.4 L (11.5-15.4) g/dL Hct 27.5 L (35.3-44.9) % All other labs normal. Consult Discharge Plan - Plan Referrals: Jeff Castaneda MD [Primary Care Provider] -
[2016-07-04] MEDS: *HR* Heparin 5,000 UNIT/ML VIAL SQ SCH ×3 (07:07→23:13)
[2016-07-04] MEDS: *HR* OxyCODONE Immed Rel 5 MG TABLET PO PRN ×3 (07:07→23:12)
[2016-07-04] MEDS: CALCIUM CARBONATE PO SCH (08:30)
[2016-07-04] MEDS: VITAMIN D3 PO SCH (08:30)
[2016-07-04] MEDS: hydrALAZINE 25 MG TABLET PO SCH ×3 (08:43→21:37)
[2016-07-04] MEDS: Aspirin Enteric Coated 81 MG Tablet PO SCH (08:43)
[2016-07-04] MEDS: Metoprolol XL (24 HR) Succ 25 MG TAB.ER.24H PO SCH (08:43)
[2016-07-04] MEDS: BuPROPion SR (12 HR) 150 MG TABLET PO SCH ×2 (08:44→21:37)
[2016-07-04] MEDS: Ascorbic Acid 500 MG TABLET PO SCH (08:44)
[2016-07-04] MEDS: Megestrol Acetate 400 MG/10 ML UDC PO SCH ×2 (08:44→09:07)
[2016-07-04] MEDS: Isosorbide MONOnitrate (24 HR) 60 MG TAB.ER.24H PO SCH (08:44)
[2016-07-04] MEDS: Furosemide 40 MG TABLET PO SCH (08:44)
[2016-07-04] MEDS: Cholecalciferol (D-3) 1,000 UNIT TABLET PO SCH (08:44)
[2016-07-04] MEDS: Budesonide/Formoterol 160/4.5 MDI IH SCH ×2 (11:29→20:47)
[2016-07-04] MEDS: Tiotropium 18 MCG inhalation IH SCH (11:29)
[2016-07-04] MEDS: traMADol 50 MG TABLET PO PRN (13:20)
--- NOTE | 2016-07-04 13:39 | Internal Med Progress Note ---
<Anne Taylor - Last Filed: 07/04/16 13:36> Date of Encounter: 07/04/16 Time of Encounter: 13:15 - Assessment and plan (1) Inferior pubic ramus fracture Current Visit: Yes Status: Acute Assessment and plan: CT of R hip shows pelvic rami fx, possible non-displacedd acetabular fx. Pt was seen by ortho who recommends weight-bearing as tolerated. PT and OT have been consulted and family states that neither are a possibility until her pain is under better control. I increased her dose of Morphine and she also is taking Ativan which may further relax her and make rest and PT/OT possible. Pt is on fall precautions. Qualifiers: Encounter type: initial encounter Fracture type: closed Laterality: right Qualified Code(s): S32.591A - Other specified fracture of right pubis, initial encounter for closed fracture (2) Anemia Current Visit: No Status: Chronic Assessment and plan: Hgb and Hct decreased from yesterday, today 8.4 and 27.5. Pt had bone marrow biopsy last week, results are still pending. At this time, there is no known cause for the anemia. Pt gets frequent transfusions and Procrit injections have been discussed, but physician and family will wait for results to continue that discussion. We will continue to monitor labs and wait for B12, folate and iron studies results. Pt is not in distress at this time. Qualifiers: Anemia type: other cause Other causes of anemia: other cause, not classified Qualified Code(s): D64.89 - Other specified anemias (3) CKD (chronic kidney disease) Current Visit: No Status: Chronic Assessment and plan: Renal function is improving today. Will continue gentle IV fluid hydration, avoid nephrotoxins, NSAIDs, and monitor labs. Qualifiers: Chronic kidney disease stage: stage 3 (moderate) Qualified Code(s): N18.3 - Chronic kidney disease, stage 3 (moderate) (4) Fall Current Visit: Yes Status: Acute Assessment and plan: Fall precautions Qualifiers: Encounter type: initial encounter Qualified Code(s): W19.XXXA - Unspecified fall, initial encounter (5) DVT prophylaxis Current Visit: No Status: Acute Assessment and plan: Pt is ordered compression hose and pneumatic compression devices. - Subjective Interval history: Pt resting on bed, multiple family members at bs. Pt moaning with 10/10, constant R groin pain, family questioning if we can increase the dose of her pain medication. She has been getting Morphine 2mg IVP q 2h prn severe pain, and has requested it q4h while awake and is not getting adequate relief. I have increased the dose to 4mg IV q2h prn severe pain. Family has verbalized concern that she will not be able to come home and they will not be able to provide adequate care for her. They would like to see her go to a rehab. We discussed her anemia. Pt had a bone marrow biopsy last week and the results are still pending. She has chronic anemia of unknown origin and according to her daughter, gets frequent transfusions. Pt was getting iron infusions, but the physician stopped them and has suggested that she take Procrit injections instead. They're not really sure where that is going until the biopsy results are back. - Constitutional Vitals: Temp Pulse Resp BP Pulse Ox 98.4 F 84 18 112/54 95 07/04/16 11:20 07/04/16 11:20 07/04/16 11:20 07/04/16 11:20 07/04/16 11:20 General appearance: Present: cachectic, cooperative, mild distress, A&O X 3, severe distress, answers questions appropriately - Head Head exam: Present: atraumatic, normal inspection - ENT ENT exam: Present: mucous membranes dry - Neck Neck exam general surgery: Absent: lymphadenopathy, tenderness - Respiratory Respiratory exam: Present: CTAB. Absent: accessory muscle use, chest wall tenderness - Cardiovascular Cardiovascular exam: Present: RRR, +S1, +S2 - GI/Abdominal GI/Abdominal exam: Present: hernia, normal bowel sounds, soft. Absent: tenderness - Extremities Exam Extremities exam: Present: warm, radial pulses palpable and symetrical. Absent : calf tenderness, full ROM, pedal edema Additional comments: Pt has liimited ROM d/t pain. - Expanded Lower Extremities Exam Lower Leg exam: Absent: full ROM, normal inspection, swelling, tenderness - Neurological Exam Neurological exam: Present: alert, oriented X3. Absent: strengths equal and symetr throughout, speech deficit Internal Medicine: Result - Labs CBC & Chem 7: 07/04/16 03:44 07/04/16 03:44 Labs: Short CBC 07/04/16 Range/Units 03:44 WBC 6.4 D (4.3-11.1) K/mcL Hgb 8.4 L (11.5-15.4) g/dL Hct 27.5 L (35.3-44.9) % Plt Count 232 (140-400) K/mcL BMP 07/04/16 03:44 Sodium 140 Potassium 4.2 Chloride 111 H Carbon Dioxide 21 BUN 22 H Creatinine 1.18 H Glucose 86 Calcium 8.5 L Cardiac Enzymes 07/04/16 07/04/16 Range/Units 03:44 10:56 Troponin I 0.01 0.01 (0-0.03) ng/mL - ABG Interpretation ABG results: PT/INR, D-dimer PT 11.9 Seconds (9.4-12.1) 07/03/16 19:26 - VTE Documentation of Mechanical Device: Intermittent pneumatic compression device Consult Discharge Plan - Plan Referrals: Tj Ragsdale MD [Partnered Physician] - 07/11/16 8:40 am Jeff Castaneda MD [Primary Care Provider] - 07/13/16 10:40 am <Awilda Saucedo - Last Filed: 07/04/16 15:06> Date of Encounter: 07/04/16 - Subjective Interval history: Patient seen and independently examined. On examination, patient in severe pain not currently controlled with current pain medication regimen, will increase IV pain medication. Patient stating she is in such severe pain that she cannot sleep and cannot move. Will increase her IV morphine dosage. While her fall appears to have been mechanical, worsening anemia may be playing a factor, will likely need a transfusion during this visit. I did briefly discuss CODE STATUS with the patient and she does currently want to be a full code but we will discuss this more so when her pain is controlled to ensure that her family is not speaking for her. Mild leukocytosis resolved, likely stress related, no signs of active infection. Head CT negative. Knee x-ray negative. Abdominal CT consistent with fracture to her pubic ramus. At the pedis on board have recommended medical management, weightbearing as tolerated. OT and PT are also on board, patient would need to have her pain controlled before she can participate in therapy. Urinalysis negative. Patient alert and oriented 3 on examination. - Constitutional Vitals: Temp Pulse Resp BP Pulse Ox 98.4 F 84 18 112/54 95 07/04/16 11:20 07/04/16 11:20 07/04/16 11:20 07/04/16 11:20 07/04/16 11:20 Internal Medicine: Result - Labs CBC & Chem 7: 07/04/16 03:44 07/04/16 03:44 Labs: Short CBC 07/04/16 Range/Units 03:44 WBC 6.4 D (4.3-11.1) K/mcL Hgb 8.4 L (11.5-15.4) g/dL Hct 27.5 L (35.3-44.9) % Plt Count 232 (140-400) K/mcL BMP 07/04/16 03:44 Sodium 140 Potassium 4.2 Chloride 111 H Carbon Dioxide 21 BUN 22 H Creatinine 1.18 H Glucose 86 Calcium 8.5 L Cardiac Enzymes 07/04/16 07/04/16 Range/Units 03:44 10:56 Troponin I 0.01 0.01 (0-0.03) ng/mL - ABG Interpretation ABG results: PT/INR, D-dimer PT 11.9 Seconds (9.4-12.1) 07/03/16 19:26
--- NOTE | 2016-07-04 15:07 | ECHO - Doppler Report ---
Echo with Saline Contrast Name: Mayra Khalil Date of Study: 07/04/2016 Date: 1935 Ht: 68.0 in Medical Record#: [id number] Age: 81 Wt: 170.0 lb Gender: Female BSA: 1.91 Order #: [id number] Location: [facility] Room #: 3B14 Reading Physician: Ana Paula Cleveland DO Insulation Batting Machine Operator: Grace Dillon Ordering Physician: Tal Solomon MD Primary Physician: Jeff Castaneda MD Indications: Presyncope/Syncope Impressions: LVEF 55%. There is evidence of moderate diastolic dysfunction of the left ventricle. Normal right ventricular size and function. Mild- moderate aortic regurgitation. Mild tricuspid regurgitation. Mild pulmonary hypertension. No PFO with saline contrast. Left Ventricular Wall Motion: Rest Echo Findings All wall segments showed normal motion. Findings: Study Quality * Technically adequate exam. ECG Findings * Normal sinus rhythm. Left Ventricle * LVEF 55%. * Normal LV chamber size, wall thickness and function. * Moderate left ventricular diastolic dysfunction. Mitral Valve * Mild mitral annular calcification * Normal mitral valve structure. * No mitral stenosis. * Trivial mitral regurgitation. Tricuspid Valve * Tricuspid valve not well visualized. * Mild tricuspid regurgitation. * Estimated RA pressure is 3 mmHg. * Estimated RVSP is 38 mmHg. * Mild pulmonary hypertension. Pulmonic Valve * Pulmonic valve is not well visualized. * No pulmonic stenosis. * Trace pulmonic regurgitation. Pulmonary Artery * Pulmonary artery not well visualized. Aortic Valve * Mild-moderate aortic regurgitation. * Aortic valve not well visualized. * No aortic stenosis. Right Ventricle * Normal right ventricular structure and function. Right Atrium * Normal right atrial size. Left Atrium * Severely dilated left atrium. Interatrial Septum * No evidence of PFO by color Doppler. * No evidence of PFO with agitated saline contrast. IVC * Normal IVC dimensions and inspiratory collapse. Pericardium * There is no pericardial effusion present. Aorta * Not well visualized. History Hypertension Hypercholesteremia Years 62 Packs 0.5 History of CAD/PTCA Myocardial Infarction Congestive Heart Failure 11/15/2014 a Previous Echo was performed. Contrast: Agitated saline 30 ml. Measurements: BP: 141/ 57 2D Normal Values IVSd: .80 cm 0.6 - 1.0 cm LVIDd: 4.80 cm 3.7 - 5.6 cm LVPWd: .90 cm 0.6 - 1.1 cm LVIDs: 3.30 cm 1.5 - 3.6 cm AO: 2.70 cm < 4.0 cm LA: 5.10 cm 2.0 - 4.0cm %FS: 31.30 cm >25 % LA volume: 99 Mitral Valve Peak E:1.18 m/sec Peak A:.72 m/sec E/A Ratio:1.6 Peak E' Lat Josue:8.19 cm/s Peak E' Med Josue:6.82 cm/s E/E' Lat Ratio:14.4 E/E' Med Ratio:17.3 Aortic Valve AI pressure Half-time: 367.00 msec Tricuspid Valve TV Regurg Peak Grad: 35.00mmHg Updated by Ana Paula Cleveland on 07/04/2016 2:58:16 PM electronically signed on 07/04/2016 3:01:26 PM with status of Final Wall Motion Maher: 1=Normal, 2=Hypokinesis, 3=Akinesis, 4=Dyskinesis, 5=Aneurysmal, 6=Hyperkinetic, X=Not Visualized (Blank)=Missing
--- NOTE | 2016-07-04 16:15 | Carotid Imaging Report ---
Carotid Duplex Patient Name:Mayra Khalil Order Number:[id number] Procedure Date:07/04/2016 Date:1935ge:81 yrs Gender:Female Lt BP:141 / 57 mmHg Rt.BP:141 / 57 mmHgHeart Rate: Location:[facility] Room #: 3B14 Service Crew Leader:Grace Dillon Referring MD:Tal Solomon MD co chairman:Jeff Castaneda MD Reading MD:Malcom Rey MD , FACS Primary Indications:Presyncope/Syncope Risk Factors Yes/No Hypertension Hypercholesterolemia Smoking Current Impressions: Findings: Bilateral carotid system have a moderate, 40-59% stenosis. Findings Carotid Duplex: Right: There is nonstenotic plaque in the right mid common carotid artery. There is irregular heterogeneous plaque. There is nonstenotic plaque in the right distal common carotid artery. There is irregular heterogeneous plaque. There is nonstenotic plaque in the right bifurcation. There is calcified plaque. There is nonstenotic plaque in the right proximal internal carotid artery. There is irregular heterogeneous plaque. There is 40-59% stenosis in the right mid internal carotid artery. There is smooth heterogeneous plaque. The right eca has turbulent flow with plaque. Left: There is nonstenotic plaque in the left distal common carotid artery. There is smooth heterogeneous plaque. There is nonstenotic plaque in the left bifurcation. There is highly irregular heterogeneous plaque. There is 40-59% stenosis in the left proximal internal carotid artery. There is smooth heterogeneous plaque. There is 40-59% stenosis in the left mid internal carotid artery. There is smooth heterogeneous plaque. The left eca has turbulent flow with plaque. Carotid Results Right PSV EDV Assessment Proximal CCA 76 12 Normal Mid CCA 81 23 Non Stenotic Plaque Distal CCA 79 18 Non Stenotic Plaque Bifurcation 47 10 Non Stenotic Plaque Proximal ICA 46 15 Non Stenotic Plaque Mid ICA 138 26 40-59% stenosis Distal ICA 83 18 Normal ECA 318 19 Non Stenotic Plaque Vertebral Artery 100 10 Antegrade Flow Left PSV EDV Assessment Proximal CCA 77 9 Normal Mid CCA 66 5 Normal Distal CCA 65 16 Non Stenotic Plaque Bifurcation 69 17 Non Stenotic Plaque Proximal ICA 143 28 40-59% stenosis Mid ICA 124 25 40-59% stenosis Distal ICA 102 22 Normal ECA 216 3 Non Stenotic Plaque Vertebral Artery 55 7 Antegrade Flow Ratio's Right ICA/CCA Ratio: 1.70 ICA/CCA Values: 138/81 Left ICA/CCA Ratio: 2.17 ICA/CCA Values: 143/66 Updated by Malcom Rey MD, FACS on 07/04/2016 4:09:02 PM Malcom Rey MD electronically signed on 07/04/2016 4:09:33 PM with status of Final
[2016-07-04] MEDS: Albuterol 2.5 MG/3 ML NEBULIZER IH SCH ×2 (16:53→20:47)
--- NOTE | 2016-07-04 17:39 | Electrocardiograph Report ---
[place] [address] Test Date: 2016-07-03 Pat Name: Mayra Khalil Department: 104 Room: 3B14 Gender: F Cardiac Exercise Physiologist: : 1935 Requested By: Order Number: [id number] Reading MD: Ana Paula Cleveland Measurements Intervals [place] Rate: 76 P: 265 GA: 137 QRS: 54 QRSD: 106 T: 55 QT: 407 QTc: 437 Interpretive Statements ARTIFACT LIMITS INTERPRETATION Electronically Signed On 07-04-2016 17:37:28 EST by Ana Paula Cleveland
[2016-07-04] MEDS: 0.9 % Sodium Chloride 1,000 ML IVC SCH (19:47)
[2016-07-04] MEDS ORDERED: *HR* LORazepam 1 MG TABLET PO SCH (21:00)
[2016-07-05] MEDS: Albuterol 2.5 MG/3 ML NEBULIZER IH SCH ×7 (00:33→23:00)
[2016-07-05 04:57] LABS: Basophils % 0.4 %; Eosinophils # 0.1 K/mcL (0.0-0.6); Hemoglobin 8.5 g/dL (11.5-15.4); Immature Granulocytes % 0.6 % (0-4); Lymphocytes # 0.5 K/mcL (0.6-4.6); Lymphocytes % 6.6 %; Mean Corpuscular HGB Conc 30.4 g/dL (31.6-35.5); Mean Corpuscular Volume 98.9 fL (83.0-100.0); Mean Platelet Volume 10.4 fL (9.4-12.4); Monocytes # 0.7 K/mcL (0.0-1.3); Monocytes % 9.5 %; Neutrophils # 5.7 K/mcL (1.6-8.9); Platelet Count 202 K/mcL (140-400); Red Blood Count 2.83 M/mcL (3.82-4.97); Red Cell Distribution Width 12.9 % (11.5-14.5); Segmented Neutrophils % 80.9 %
[2016-07-05 05:10] LABS: Calcium 8.2 mg/dL (8.6-10.8); Potassium 4.3 mEq/L (3.5-4.5)
[2016-07-05 05:46] LABS: Folate 11.8 ng/mL (7.0-31.4)
--- NOTE | 2016-07-05 06:39 | Physician Discharge Referral ---
- Respiratory Orders Smoking Cessation: Smoking cessation has been advised. For more information, call the [place] Tobacco Quit Line at 9-574-EDMD-NOW. - Transfer Medications Home Medications: Budesonide/Formoterol 160/4.5 [Symbicort] 2 puff IH BID 02/20/15 [History] Clopidogrel [Plavix] 75 mg PO DAILY 02/20/15 [History] Furosemide [Lasix] 40 mg PO DAILY 02/20/15 [History] Potassium Chloride 20 meq PO DAILY 02/20/15 [History] Tiotropium [Spiriva] 18 mcg IH DAILY 02/20/15 [History] TraMADol [Ultram] 50 mg PO Q6HR PRN 02/20/15 [History] BuPROPion SR (12 HR) [Wellbutrin SR] 150 mg PO BID 03/25/15 [History] Sertraline [Zoloft] 100 mg PO DAILY 03/25/15 [History] Donepezil [Aricept] 10 mg PO HS 04/03/15 [History] Alendronate Sodium [Fosamax] 70 mg PO MO 07/09/15 [History] Ascorbate Calcium [Vitamin C] 500 mg PO DAILY 07/09/15 [History] Aspirin [Adult Low Dose Aspirin EC] 81 mg PO DAILY 07/09/15 [History] Calcium Carbonate/Vitamin D3 [Calcium 500-Vit D3 400 Tablet] 1 tab PO DAILY 04/13 [History] Ferrous Sulfate 325 mg PO DAILY 07/09/15 [History] Isosorbide MONOnitrate (24 HR) [Imdur] 60 mg PO DAILY 07/09/15 [History] LORazepam [Ativan] 0.5 mg PO QID PRN 07/09/15 [History] Losartan [Cozaar] 100 mg PO DAILY 07/09/15 [History] Metoprolol XL (24 HR) Succ [Toprol Xl] 25 mg PO DAILY 07/09/15 [History] Simvastatin [Zocor] 40 mg PO QPM 07/09/15 [History] Hydralazine HCl 50 mg PO TID 11/27/15 [History] Cholecalciferol (D-3) [Vitamin D] 1,000 unit PO DAILY 02/22/16 [History] Nitroglycerin [Nitrostat] 0.4 mg SL PRN PRN #30 tab.subl 02/26/16 [Rx] Albuterol Neb [Proventil Neb] 2.5 mg IH Q4HR 07/04/16 [History] LORazepam [Ativan] 1 mg PO HS 07/04/16 [History] Allergies/Adverse Reactions: Allergies citalopram [From Celexa] Allergy (Verified 02/22/16 11:35) Abdominal Pain haloperidol [From Haldol] Allergy (Verified 02/22/16 11:35) Hallucinating amlodipine [From Norvasc] Adverse Reaction (Verified 02/22/16 11:35) Nausea roflumilast [From Daliresp] Adverse Reaction (Verified 02/22/16 11:35) Difficulty Breathing Certification: Further, I certify that my clinical findings support that this patient is homebound (i.e. absences from home require considerable and taxing effort and are for medical reasons or nondenominational services or infrequently or short duration when for other reasons) because: Attestation: My signature below is to certify that this patient is under my care and that I, or nurse practitioner, or a physician's assistant chief train dispatcher working with me, has a face-to -face encounter with this patient.
[2016-07-05] MEDS: *HR* Heparin 5,000 UNIT/ML VIAL SQ SCH ×3 (06:43→23:57)
[2016-07-05] MEDS: *HR* Morphine 2 MG/ML SYRINGE IVP PRN ×5 (06:43→15:27)
[2016-07-05] MEDS: Tiotropium 18 MCG inhalation IH SCH (07:55)
[2016-07-05] MEDS: Budesonide/Formoterol 160/4.5 MDI IH SCH ×2 (07:55→20:10)
--- NOTE | 2016-07-05 10:44 | Internal Med Progress Note ---
Date of Encounter: 07/05/16 Time of Encounter: 09:30 (and 1030) - Assessment and plan (1) Fall Current Visit: Yes Status: Acute Assessment and plan: Patient with history of multiple falls at home. Fracture noted to pubic ramus. Refill on board and recommended medical management and weightbearing as tolerated. Head CT negative. Plain films of her knee negative. Echocardiogram unremarkable with ejection fraction of 55% and moderate diastolic dysfunction. She is euvolemic on examination. Anemia is currently stable and no indication to transfuse at this time. Urinalysis negative. Carotid duplex revealing moderate stenosis. Patient seen and reexamined several times over the past 2 days and she continues to be in severe pain. Morphine dosage increased and she can have it every 2 hours as needed. If any effective, we will consider Dilaudid CAR SHIFTER pump. Patient remains alert and oriented 3. OT and PT consultations are pending although given her severe pain , she is likely not able to participate in evaluations at this time. ITS Impressions Abdomen/Pelvis CT 07/03/16 18:01 IMPRESSION: 1. Soft tissue hematoma overlying the right greater trochanter. 2. Mildly displaced fracture involving the right inferior pubic ramus nondisplaced fractures involving the parasymphyseal region of the right superior pubic ramus, along with the anterior column of the right acetabulum. 3. Stable indeterminate nodule involving the right middle lobe. 4. Diverticulosis. 5. Cardiomegaly and trace pericardial effusion, stable. Small hiatal hernia. 6. Moderate, midline ventral hernia containing fat. No evidence of obstruction. 7. Stable intrahepatic and extrahepatic bile duct dilatation. Post cholecystectomy changes. D/ / 07/03/2016 20:03:16 Rusty Finn MD / ria Interpreting Provider: Rusty Finn MD Head CT 07/03/16 18:01 IMPRESSION: No acute intracranial abnormality. D/ / Price Macias MD / Price Macias MD Interpreting Provider: Price Macias MD Knee X-Ray 07/03/16 18:02 IMPRESSION: 1. No acute fracture or dislocation. 2. Moderate tricompartmental osteoarthritis. D/ / 07/03/2016 18:49:25 Rusty Finn MD / [email or web address] Interpreting Provider: Rusty Finn MD Echo with saline contrast impressions: LVEF 55%. There is evidence of moderate diastolic dysfunction of the left ventricle. Normal left ventricular size and function. Mild-moderate aortic regurgitation. Mild tricuspid regurgitation. No pulmonary hypertension. No PFO with saline contrast. Carotid duplex impressions: Bilateral carotid system have a moderate, 40-59% stenosis. Qualifiers: Encounter type: initial encounter Qualified Code(s): W19.XXXA - Unspecified fall, initial encounter (2) Falls frequently Current Visit: Yes Status: Chronic (3) Inferior pubic ramus fracture Current Visit: Yes Status: Acute Assessment and plan: CT of R hip shows pelvic rami fx, possible non-displacedd acetabular fx. Pt was seen by ortho who recommends weight-bearing as tolerated and medical management. PT and OT have been consulted and their recommendations are pending. Thus far, patients pain has been too severe for her to move in bed, so she will likely not be able to participate in therapy. Will continue to address her pain. Qualifiers: Encounter type: initial encounter Fracture type: closed Laterality: right Qualified Code(s): S32.591A - Other specified fracture of right pubis, initial encounter for closed fracture (4) Fracture of superior pubic ramus Current Visit: Yes Status: Acute Qualifiers: Encounter type: initial encounter Fracture type: closed Laterality: right Qualified Code(s): S32.511A - Fracture of superior rim of right pubis, initial encounter for closed fracture (5) Hematoma of right hip Current Visit: Yes Status: Acute Qualifiers: Encounter type: initial encounter Qualified Code(s): S70.01XA - Contusion of right hip, initial encounter (6) Diastolic CHF, acute on chronic Current Visit: Yes Status: Chronic Assessment and plan: Chronic diastolic heart failure. Echocardiogram revealing ejection fraction of 55% and mild diastolic dysfunction. She is on Lasix at home. No acute exacerbation. (7) Osteoarthritis involving multiple joints on both sides of body Current Visit: Yes Status: Chronic (8) Anemia, chronic disease Current Visit: Yes Status: Chronic Assessment and plan: Chronic. Patient has received several blood transfusions in the past. She has remained stable thus far and admission, no indication to transfuse yet but type and cross obtained yesterday. We will continue to trend. (9) CAD (coronary artery disease) Current Visit: Yes Status: Chronic Qualifiers: Coronary Disease-Associated Artery/Lesion type: [place] artery [place] vs. transplanted heart: [place] heart Associated angina: angina presence unspecified Qualified Code(s): I25.10 - Atherosclerotic heart disease of [place] coronary artery without angina pectoris (10) COPD (chronic obstructive pulmonary disease) Current Visit: Yes Status: Chronic Assessment and plan: No acute exacerbation. Patient denies shortness of breath above her norm. Qualifiers: COPD type: unspecified COPD Qualified Code(s): J44.9 - Chronic obstructive pulmonary disease, unspecified (11) Hypertension Current Visit: Yes Status: Chronic Assessment and plan: Controlled. We will continue to trend and adjust medication as indicated. (12) DVT prophylaxis Current Visit: No Status: Acute Assessment and plan: SC heparin as well as IPC's as she tolerates. (13) CKD (chronic kidney disease) Current Visit: No Status: Chronic Assessment and plan: Renal functioning remains stable. Will continue gentle IV fluid hydration, avoid nephrotoxins, NSAIDs, and monitor labs. Qualifiers: Chronic kidney disease stage: stage 3 (moderate) Qualified Code(s): N18.3 - Chronic kidney disease, stage 3 (moderate) (14) Peripheral vascular disease Current Visit: No Status: Chronic - Subjective Interval history: Patient seen and examined. On examination, patient alert and oriented 3 and in severe pain. She is writhing on the cart and moaning. She does answer questions appropriately. She states pain medication abates the pain slightly for a very short amount of time but did not become severe again. Patient given an IV dose of morphine and then reexamined, on reexamination, she was still in severe pain but stated her pain had improved slightly. - Constitutional Vitals: Temp Pulse Resp BP Pulse Ox 98.3 F 87 18 133/67 95 07/05/16 10:38 07/05/16 10:38 07/05/16 10:38 07/05/16 10:38 07/05/16 10:38 General appearance: Present: cachectic, cooperative, A&O X 3, severe distress (2 /2 pain), answers questions appropriately - Head Head exam: Present: atraumatic, normocephalic - Eye Eye exam: Present: PERRL, conjuntiva pink, sclera anicteric Pupils: Present: PERRL - Neck Neck exam general surgery: Present: supple, trachea midline. Absent: lymphadenopathy - Respiratory Respiratory exam: Present: decreased breath sounds, CTAB. Absent: accessory muscle use, rales, respiratory distress, rhonchi, wheezes - Cardiovascular Cardiovascular exam: Present: RRR, +S1, +S2, tachycardia. Absent: diastolic murmur, gallop, rubs, systolic murmur - GI/Abdominal GI/Abdominal exam: Present: normal bowel sounds, soft, no peritoneal signs. Absent: distended, tenderness - Extremities Exam Extremities exam: Present: warm, radial pulses palpable and symetrical. Absent : calf tenderness, cyanotic, pedal edema - Expanded Lower Extremities Exam Hip exam: Present: ecchymosis, erythema, swelling, tenderness. Absent: full ROM Neuro vascular tendon exam: Present: no vascular compromise Gait: Present: not tested/not observed - Neurological Exam Neurological exam: Present: alert, CN II-XII intact, oriented X3, no focal deficits, strengths equal and symetr throughout. Absent: pronater drift, facial droop, speech deficit - Skin Skin exam: Present: dry, intact, pallor, warm Internal Medicine: Result - Labs CBC & Chem 7: 07/05/16 03:48 07/05/16 03:48 Labs: Short CBC 07/05/16 Range/Units 03:48 WBC 7.0 (4.3-11.1) K/mcL Hgb 8.5 L (11.5-15.4) g/dL Hct 28.0 L (35.3-44.9) % Plt Count 202 (140-400) K/mcL Neutrophils # 5.7 (1.6-8.9) K/mcL BMP 07/05/16 03:48 Sodium 140 Potassium 4.3 Chloride 110 H Carbon Dioxide 20 BUN 22 H Creatinine 1.24 H Glucose 94 Calcium 8.2 L Cardiac Enzymes 07/04/16 Range/Units 10:56 Troponin I 0.01 (0-0.03) ng/mL - ABG Interpretation ABG results: PT/INR, D-dimer PT 11.9 Seconds (9.4-12.1) 07/03/16 19:26 - VTE Documentation of Mechanical Device: Intermittent pneumatic compression device Consult Discharge Plan - Plan Referrals: Tj Ragsdale MD [Partnered Physician] - 07/11/16 8:40 am Jeff Castaneda MD [Primary Care Provider] - 07/13/16 10:40 am
[2016-07-05] MEDS: *HR* OxyCODONE Immed Rel 5 MG TABLET PO PRN ×2 (10:48→16:49)
[2016-07-05] MEDS: hydrALAZINE 25 MG TABLET PO SCH ×3 (10:49→20:10)
[2016-07-05] MEDS: Megestrol Acetate 400 MG/10 ML UDC PO SCH (10:50)
[2016-07-05] MEDS: *HR* LORazepam 0.5 MG TABLET PO PRN ×2 (10:50→16:49)
[2016-07-05] MEDS: Cholecalciferol (D-3) 1,000 UNIT TABLET PO SCH (10:50)
[2016-07-05] MEDS: Ascorbic Acid 500 MG TABLET PO SCH (10:50)
[2016-07-05] MEDS: BuPROPion SR (12 HR) 150 MG TABLET PO SCH (10:50)
[2016-07-05] MEDS: Furosemide 40 MG TABLET PO SCH (10:50)
[2016-07-05] MEDS: Aspirin Enteric Coated 81 MG Tablet PO SCH (10:50)
[2016-07-05] MEDS: Metoprolol XL (24 HR) Succ 25 MG TAB.ER.24H PO SCH (10:50)
[2016-07-05] MEDS: Isosorbide MONOnitrate (24 HR) 60 MG TAB.ER.24H PO SCH (10:50)
[2016-07-05] MEDS: VITAMIN D3 PO SCH (10:52)
[2016-07-05] MEDS: CALCIUM CARBONATE PO SCH (10:52)
[2016-07-05] MEDS ORDERED: Ferumoxytol 510 MG in 0.9 % Sodium Chloride 100 ML IVPB ONE (11:00)
[2016-07-05] MEDS ORDERED: *HR* Promethazine 25 MG/ML VIAL IVP PRN (11:01)
[2016-07-05] MEDS: traMADol 50 MG TABLET PO PRN (13:12)
[2016-07-05] MEDS ORDERED: Albuterol 2.5 MG/3 ML NEBULIZER IH ONE (18:09)
[2016-07-05] MEDS ORDERED: Ketorolac 15 MG/ML VIAL IVP ONE (18:15)
[2016-07-05] MEDS ORDERED: 0.9 % Sodium Chloride 1,000 ML IVC SCH (18:30)
--- NOTE | 2016-07-05 18:36 | Event Note ---
Date of Encounter: 07/05/16 Time of Encounter: 18:31 I was called to evaluate pt for hypoxia o2 sat 76%. Pt is restless, tremulous, confused. heart RRR S1S2, lungs diminished w/ faint exp wheezes, abd soft, pupils equal 2mm diiam Plan: I spoke to Dr Lyn at bedside, reports CXR shows infiltrate, concern for RLE PNA, hypoxia, possible aspiration, resp failure. uncontrolled pelvic pain, delirium Check blood cultures, iv Abx for HCAP, high flow O2, inhaled duoneb, limit sedative meds including ativan, NPO, aspiration precautions. Care was handed back over to Dr Lyn. Pt full code.
[2016-07-05 18:56] LABS: ABG Base Excess -4.5 mEq/L (-2.0 to 3.0); ABG Glucose 113 mg/dL (60-95); ABG HCO3 20.1 mEQ/L (21-27); ABG Hematocrit 28 % (35-51); ABG Ionized Calcium 1.12 mmol/L (1.15-1.35); ABG Oxygen Saturation 97 % (95-98); ABG PCO2 34 mmHg (35-45); ABG PH 7.38 pH Units (7.32-7.45); ABG PO2 89 mmHg (85-104); ABG TCO2 21.1 mEq/L (20-26)
[2016-07-05 18:57] LABS: Blood Gas FiO2 50 %
[2016-07-05] MEDS ORDERED: Vancomycin 1 EACH in D5% in Water 250 ML IVPB PRN (19:00)
[2016-07-05] MEDS: Vancomycin 1,250 MG in D5% in Water 250 ML IVPB SCH (20:08)
[2016-07-05] MEDS ORDERED: *HR* LORazepam 1 MG TABLET PO SCH (21:00)
--- NOTE | 2016-07-05 23:27 | Event Note ---
Date of Encounter: 07/05/16 Time of Encounter: 20:15 Patient with inoperable hip fracture, developing hypoxic respiratory failure. Summary of earlier evaluation is detailed in Event note authored by Dr Yoo. I re-evaluated the patient 1 hour later. She is doing mouch better, saturating 94-96% on high flow oxygen. Less agitated/restless, much calmer. much less dyspneic. Rattling breath sounds persists on the right. She is able to follow commands. No more shakes or tramors after Toradol. IMP Hypoxic respiratory failure Right lower lobe pneumonia, suspect aspiration PLAN cONTINUE CARE as detailed in Dr Yoo summary Wean down oxygen as tolerated, goal is to keep SPO2>94%. Family updated and reassured.
[2016-07-05] MEDS: *HR* LORazepam 2 MG/ML VIAL IVP PRN (23:38)
[2016-07-05] MEDS: Piperacillin/Tazobactam 3.375 GM in D5% in Water (Mini-Bag+) 100 ML IVPB SCH (23:52)
[2016-07-06] MEDS: Albuterol 2.5 MG/3 ML NEBULIZER IH SCH ×2 (03:51→07:30)
[2016-07-06] MEDS: *HR* Morphine 2 MG/ML SYRINGE IVP PRN ×4 (04:01→23:23)
[2016-07-06 06:10] LABS: Basophils % 0.2 %; Eosinophils # 0.1 K/mcL (0.0-0.6); Eosinophils % 0.6 %; Hemoglobin 7.8 g/dL (11.5-15.4); Immature Granulocytes % 0.5 % (0-4); Lymphocytes # 0.4 K/mcL (0.6-4.6); Lymphocytes % 3.1 %; Mean Corpuscular Hemoglobin 29.5 pg (28.0-33.3); Mean Corpuscular Volume 98.5 fL (83.0-100.0); Mean Platelet Volume 10.3 fL (9.4-12.4); Monocytes # 0.9 K/mcL (0.0-1.3); Monocytes % 6.6 %; Neutrophils # 11.9 K/mcL (1.6-8.9); Platelet Count 196 K/mcL (140-400); Red Blood Count 2.64 M/mcL (3.82-4.97); Red Cell Distribution Width 13.1 % (11.5-14.5)
[2016-07-06 06:22] LABS: Potassium 4.4 mEq/L (3.5-4.5)
[2016-07-06] MEDS: *HR* Heparin 5,000 UNIT/ML VIAL SQ SCH ×3 (07:00→23:22)
[2016-07-06] MEDS: Tiotropium 18 MCG inhalation IH SCH (07:29)
[2016-07-06] MEDS: Budesonide/Formoterol 160/4.5 MDI IH SCH ×2 (07:30→21:48)
[2016-07-06] MEDS ORDERED: Ipratropium/Albuterol Neb 3 ML IH PRN (09:40)
[2016-07-06] MEDS ORDERED: 0.9 % Sodium Chloride 1,000 ML IVC SCH (09:44)
--- NOTE | 2016-07-06 09:52 | Internal Med Progress Note ---
Date of Encounter: 07/06/16 Time of Encounter: 09:50 - Assessment and plan (1) Hypoxia Current Visit: Yes Status: Acute Assessment and plan: Likely secondary to pneumonia Currently saturating well on Ventimask Continue to monitor O2 sat given history of COPD, O2 sat 89-92% (2) Aspiration pneumonia Current Visit: Yes Status: Acute Assessment and plan: Chest x-ray consistent with a right basilar opacity and given clinical presentation concerning for aspiration pneumonia Started vancomycin and Zosyn Pharmacy to dose antibiotics Pharmacy to monitor vancomycin trough Continue to monitor O2 sat, O2 supplementation as needed Follow-up blood cultures Awaiting speech therapy evaluation Qualifiers: Aspiration pneumonia type: unspecified Laterality: right Lung location: lower lobe of lung Qualified Code(s): J69.0 - Pneumonitis due to inhalation of food and vomit (3) Fall Current Visit: Yes Status: Chronic Assessment and plan: Status post fall and has history of recurrent falls Will maintain fall precautions Physical therapy evaluation when patient stable Qualifiers: Encounter type: initial encounter Qualified Code(s): W19.XXXA - Unspecified fall, initial encounter (4) Acute kidney injury superimposed on CKD Current Visit: Yes Status: Acute Assessment and plan: Worsening renal function Likely prerenal, noted to be hypotensive yesterday We will closely monitor blood pressure Lasix and ARB (losartan) at this time Gentle IV hydration given history of CHF Continue to monitor renal function closely (5) CHF (congestive heart failure) Current Visit: Yes Status: Chronic Assessment and plan: Not an acute exacerbation 2-D echo noted to have left ventricular ejection fraction of 55%, with moderate left ventricular diastolic dysfunction Holding Lasix at this time due to worsening renal function We will closely monitor for signs of CHF decompensation Qualifiers: Congestive heart failure type: diastolic Congestive heart failure chronicity: chronic Qualified Code(s): I50.32 - Chronic diastolic (congestive ) heart failure (6) Pelvis fracture, right Current Visit: Yes Status: Acute Assessment and plan: Status post fall, CT of pelvis noted to have pelvic rami fracture possible nondisplaced acetabular fracture Orthopedic eval appreciated Nonoperative treatment weightbearing as tolerated Continue pain control Supportive care Physical therapy when able Qualifiers: Encounter type: initial encounter Fracture type: closed Qualified Code(s) : S32.9XXA - Fracture of unspecified parts of lumbosacral spine and pelvis, initial encounter for closed fracture (7) Anemia Current Visit: Yes Status: Chronic Assessment and plan: History of chronic anemia H&H low but acceptable No active bleeding noted at this time We will continue to closely monitor Qualifiers: Anemia type: unspecified type Qualified Code(s): D64.9 - Anemia, unspecified (8) Dementia Current Visit: Yes Status: Chronic Assessment and plan: Continue home medications Qualifiers: Dementia type: unspecified type Dementia behavioral disturbance: without behavioral disturbance Qualified Code(s): F03.90 - Unspecified dementia without behavioral disturbance (9) CAD (coronary artery disease) Current Visit: Yes Status: Chronic Assessment and plan: No signs of angina present at this time Continue home medications Qualifiers: Coronary Disease-Associated Artery/Lesion type: [place] artery [place] vs. transplanted heart: [place] heart Associated angina: angina presence unspecified Qualified Code(s): I25.10 - Atherosclerotic heart disease of [place] coronary artery without angina pectoris (10) COPD (chronic obstructive pulmonary disease) Current Visit: Yes Status: Chronic Assessment and plan: Not in acute exacerbation Hypoxia likely secondary to pneumonia Bronchodilator support Monitor without steroid at this time O2 supplementation as needed will closely monitor. Qualifiers: COPD type: unspecified COPD Qualified Code(s): J44.9 - Chronic obstructive pulmonary disease, unspecified (11) DVT prophylaxis Current Visit: No Status: Acute Assessment and plan: Heparin subcutaneous (12) Anxiety Current Visit: No Status: Chronic Assessment and plan: Continue home medications - Subjective Interval history: Patient seen and examined at bedside. Reports of feeling better than the previous day. Currently saturating well on Ventimask however noted to desaturate without the mask. Patient has history of COPD but is not on home oxygen. Patient was noted to have a hypoxic episode yesterday evening and was started on empiric treatment for aspiration pneumonia. Patient was also noted to have difficult time swallowing medications and liquids, will obtain speech eval. - Constitutional Vitals: Temp Pulse Resp BP Pulse Ox 99.7 F H 100 27 118/75 95 07/06/16 07:56 07/06/16 07:56 07/06/16 07:56 07/06/16 07:56 07/06/16 08:54 General appearance: Present: cachectic, cooperative, A&O X 3, no acute distress , obese, answers questions appropriately - Head Head exam: Present: atraumatic, normocephalic - Eye Eye exam: Present: normal appearance, conjuntiva pink, sclera anicteric - Respiratory Respiratory exam: Present: wheezes (bilateral expiratory wheezing, decreased breath sounds on lower bases) - Cardiovascular Cardiovascular exam: Present: RRR, +S1, +S2, tachycardia - GI/Abdominal GI/Abdominal exam: Present: normal bowel sounds, soft. Absent: distended, tenderness - Extremities Exam Extremities exam: Present: warm, radial pulses palpable and symetrical. Absent : calf tenderness, pedal edema - Neurological Exam Neurological exam: Present: alert, oriented X3 Internal Medicine: Result - Labs CBC & Chem 7: 07/06/16 05:27 07/06/16 05:27 Labs: Short CBC 07/06/16 Range/Units 05:27 WBC 13.4 H D (4.3-11.1) K/mcL Hgb 7.8 L (11.5-15.4) g/dL Hct 26.0 L (35.3-44.9) % Plt Count 196 (140-400) K/mcL Neutrophils # 11.9 H (1.6-8.9) K/mcL BMP 07/06/16 05:27 Sodium 140 Potassium 4.4 Chloride 112 H Carbon Dioxide 18 L BUN 29 H Creatinine 1.51 H Glucose 102 H Calcium 8.0 L - ABG Interpretation ABG results: ABG ABG pH 7.38 pH Units (7.32-7.45) 07/05/16 18:55 ABG pCO2 34 mmHg (35-45) L 07/05/16 18:55 ABG pO2 89 mmHg (85-104) 07/05/16 18:55 ABG O2 Saturation 97 % (95-98) 07/05/16 18:55 PT/INR, D-dimer PT 11.9 Seconds (9.4-12.1) 07/03/16 19:26 - Impressions Impressions Chest X-Ray 07/05/16 17:58 IMPRESSION: Somewhat subtle right basilar opacity. Findings may represent asymmetric edema, infection, or atelectasis. D/ / Ely Kumar MD / Ely Kumar MD Interpreting Provider: Ely Kumar MD - VTE Documentation of Mechanical Device: Intermittent pneumatic compression device Consult Discharge Plan - Plan Referrals: Tj Ragsdale MD [Partnered Physician] - 07/11/16 8:40 am Jeff Castaneda MD [Primary Care Provider] - 07/13/16 10:40 am Mayito Fletcher DO [Partnered Physician] - 08/19/16 1:55 pm Willie Verduzco MD [Partnered Physician] - 08/11/16 2:00 pm
[2016-07-06] MEDS: Piperacillin/Tazobactam 3.375 GM in D5% in Water (Mini-Bag+) 100 ML IVPB SCH ×2 (10:06→15:57)
[2016-07-06] MEDS: Ipratropium/Albuterol Neb 3 ML IH SCH ×3 (11:30→21:48)
[2016-07-06] MEDS: hydrALAZINE 25 MG TABLET PO SCH ×3 (15:20→20:34)
[2016-07-06] MEDS: Furosemide 40 MG TABLET PO SCH (15:20)
[2016-07-06] MEDS: CALCIUM CARBONATE PO SCH (15:23)
[2016-07-06] MEDS: VITAMIN D3 PO SCH (15:23)
[2016-07-06] MEDS: Megestrol Acetate 400 MG/10 ML UDC PO SCH (15:54)
[2016-07-06] MEDS: Ascorbic Acid 500 MG TABLET PO SCH (16:05)
[2016-07-06] MEDS: Isosorbide MONOnitrate (24 HR) 60 MG TAB.ER.24H PO SCH (16:05)
[2016-07-06] MEDS: Aspirin Enteric Coated 81 MG Tablet PO SCH (16:05)
[2016-07-06] MEDS: Cholecalciferol (D-3) 1,000 UNIT TABLET PO SCH (16:05)
[2016-07-06] MEDS: Metoprolol XL (24 HR) Succ 25 MG TAB.ER.24H PO SCH (16:06)
[2016-07-06] MEDS: Vancomycin 1,250 MG in D5% in Water 250 ML IVPB SCH (20:33)
[2016-07-06] MEDS: *HR* LORazepam 1 MG TABLET PO PRN (23:23)
[2016-07-07] MEDS: Piperacillin/Tazobactam 3.375 GM in D5% in Water (Mini-Bag+) 100 ML IVPB SCH ×3 (01:07→17:13)
[2016-07-07] MEDS: *HR* LORazepam 2 MG/ML VIAL IVP PRN (01:49)
[2016-07-07] MEDS: Ipratropium/Albuterol Neb 3 ML IH SCH ×4 (03:45→21:48)
[2016-07-07 05:00] LABS: Basophils % 0.2 %; Eosinophils # 0.2 K/mcL (0.0-0.6); Eosinophils % 1.9 %; Hematocrit 25.1 % (35.3-44.9); Hemoglobin 7.6 g/dL (11.5-15.4); Immature Granulocytes % 0.5 % (0-4); Lymphocytes # 0.5 K/mcL (0.6-4.6); Lymphocytes % 5.1 %; Mean Corpuscular HGB Conc 30.3 g/dL (31.6-35.5); Mean Corpuscular Hemoglobin 29.8 pg (28.0-33.3); Mean Corpuscular Volume 98.4 fL (83.0-100.0); Mean Platelet Volume 10.2 fL (9.4-12.4); Monocytes % 9.6 %; Neutrophils # 8.4 K/mcL (1.6-8.9); Platelet Count 209 K/mcL (140-400); Red Blood Count 2.55 M/mcL (3.82-4.97); Segmented Neutrophils % 82.7 %
[2016-07-07 05:17] LABS: Calcium 8.1 mg/dL (8.6-10.8); Magnesium 1.8 mg/dL (1.6-2.6)
[2016-07-07] MEDS: *HR* Heparin 5,000 UNIT/ML VIAL SQ SCH ×3 (06:06→14:28)
[2016-07-07] MEDS: Megestrol Acetate 400 MG/10 ML UDC PO SCH (09:05)
[2016-07-07] MEDS: Isosorbide MONOnitrate (24 HR) 60 MG TAB.ER.24H PO SCH (09:06)
[2016-07-07] MEDS: Cholecalciferol (D-3) 1,000 UNIT TABLET PO SCH (09:06)
[2016-07-07] MEDS: Aspirin Enteric Coated 81 MG Tablet PO SCH (09:06)
[2016-07-07] MEDS: hydrALAZINE 25 MG TABLET PO SCH ×3 (09:06→20:06)
[2016-07-07] MEDS: Ascorbic Acid 500 MG TABLET PO SCH (09:06)
[2016-07-07] MEDS: Metoprolol XL (24 HR) Succ 25 MG TAB.ER.24H PO SCH (09:07)
[2016-07-07] MEDS: CALCIUM CARBONATE PO SCH (09:08)
[2016-07-07] MEDS: VITAMIN D3 PO SCH (09:08)
[2016-07-07] MEDS: *HR* OxyCODONE Immed Rel 5 MG TABLET PO PRN ×2 (09:38→20:07)
[2016-07-07] MEDS: Budesonide/Formoterol 160/4.5 MDI IH SCH ×2 (11:37→21:49)
[2016-07-07] MEDS: Tiotropium 18 MCG inhalation IH SCH (11:38)
[2016-07-07] MEDS ORDERED: Furosemide 20 MG/2 ML VIAL IVP ONE (13:55)
--- NOTE | 2016-07-07 16:57 | Internal Med Progress Note ---
Date of Encounter: 07/07/16 Time of Encounter: 13:00 - Assessment and plan (1) Hypoxia Current Visit: Yes Status: Acute Assessment and plan: Likely secondary to pneumonia Currently saturating well on Ventimask Continue to monitor O2 sat given history of COPD, O2 sat 89-92% (2) Aspiration pneumonia Current Visit: Yes Status: Acute Assessment and plan: Chest x-ray consistent with a right basilar opacity and given clinical presentation concerning for aspiration pneumonia Started vancomycin and Zosyn Pharmacy to dose antibiotics Pharmacy to monitor vancomycin trough Continue to monitor O2 sat, O2 supplementation as needed Follow-up blood cultures speech therapy evaluation appreciated, Honey thick liquids and pureed diet started Qualifiers: Aspiration pneumonia type: unspecified Laterality: right Lung location: lower lobe of lung Qualified Code(s): J69.0 - Pneumonitis due to inhalation of food and vomit (3) Fall Current Visit: Yes Status: Chronic Assessment and plan: Status post fall and has history of recurrent falls Will maintain fall precautions Physical therapy evaluation: rehab Qualifiers: Encounter type: initial encounter Qualified Code(s): W19.XXXA - Unspecified fall, initial encounter (4) Acute kidney injury superimposed on CKD Current Visit: Yes Status: Acute Assessment and plan: Improved from previous day Will continue to hold Losartan however given worsening respiratory status, administered one time dosage of Lasix 20mg IV Will continue to closely monitor D/c IV fluids (5) CHF (congestive heart failure) Current Visit: Yes Status: Chronic Assessment and plan: Not an acute exacerbation 2-D echo noted to have left ventricular ejection fraction of 55%, with moderate left ventricular diastolic dysfunction Restarted Lasix due to worsening resp status One time dose of Lasix 20mg IV given will monitor I/Os daily weights Qualifiers: Congestive heart failure type: diastolic Congestive heart failure chronicity: chronic Qualified Code(s): I50.32 - Chronic diastolic (congestive ) heart failure (6) Pelvis fracture, right Current Visit: Yes Status: Acute Assessment and plan: Status post fall, CT of pelvis noted to have pelvic rami fracture possible nondisplaced acetabular fracture Orthopedic eval appreciated Nonoperative treatment weightbearing as tolerated Continue pain control Supportive care Physical therapy while in house Qualifiers: Encounter type: initial encounter Fracture type: closed Qualified Code(s) : S32.9XXA - Fracture of unspecified parts of lumbosacral spine and pelvis, initial encounter for closed fracture (7) Anemia Current Visit: Yes Status: Chronic Assessment and plan: Drop in H&H noted no active bleeding reported will continue to monitor if drops below 7, will transfuse Qualifiers: Anemia type: unspecified type Qualified Code(s): D64.9 - Anemia, unspecified (8) Dementia Current Visit: Yes Status: Chronic Assessment and plan: Continue home medications Qualifiers: Dementia type: unspecified type Dementia behavioral disturbance: without behavioral disturbance Qualified Code(s): F03.90 - Unspecified dementia without behavioral disturbance (9) CAD (coronary artery disease) Current Visit: Yes Status: Chronic Assessment and plan: No signs of angina present at this time Continue home medications Qualifiers: Coronary Disease-Associated Artery/Lesion type: [place] artery [place] vs. transplanted heart: [place] heart Associated angina: angina presence unspecified Qualified Code(s): I25.10 - Atherosclerotic heart disease of [place] coronary artery without angina pectoris (10) COPD (chronic obstructive pulmonary disease) Current Visit: Yes Status: Chronic Assessment and plan: Not in acute exacerbation Hypoxia likely secondary to pneumonia Bronchodilator support Monitor without steroid at this time O2 supplementation as needed will closely monitor. Qualifiers: COPD type: unspecified COPD Qualified Code(s): J44.9 - Chronic obstructive pulmonary disease, unspecified (11) DVT prophylaxis Current Visit: No Status: Acute Assessment and plan: Heparin subcutaneous (12) Anxiety Current Visit: No Status: Chronic Assessment and plan: Continue home medications (13) Metabolic acidemia Current Visit: Yes Status: Acute Assessment and plan: Likely secondary to IV fluids and CKD Bicarb deficit: 4.5 Will give one dose of Bicarb 1amp IVP start sodium bicarb 650mg PO TID will continue to monitor - Subjective Interval history: Patient seen and examined at bedside. Noted to be more confused today. Noted to have bibasilar crackles. As per daughter, present at bedside. mental status waxes and wanes. Patient was able to participate with physical therapy earlier today. Speech therapy eval recommended pureed diet with honey thick liquid - Constitutional Vitals: Temp Pulse Resp BP Pulse Ox 99.4 F 95 16 130/57 97 07/07/16 15:30 07/07/16 15:30 07/07/16 15:30 07/07/16 15:30 07/07/16 15:30 General appearance: Present: cachectic, cooperative, A&O X 2, no acute distress , obese, answers questions appropriately - Head Head exam: Present: atraumatic, normocephalic - Eye Eye exam: Present: conjuntiva pink, sclera anicteric - Respiratory Respiratory exam: Absent: wheezes (bibasilar crackles) - Cardiovascular Cardiovascular exam: Present: RRR, +S1, +S2 - GI/Abdominal GI/Abdominal exam: Present: normal bowel sounds, soft. Absent: tenderness - Extremities Exam Extremities exam: Present: pedal edema, warm, radial pulses palpable and symetrical. Absent: calf tenderness - Neurological Exam Neurological exam: Present: alert Internal Medicine: Result - Labs CBC & Chem 7: 07/07/16 04:29 07/07/16 04:29 Labs: Short CBC 07/07/16 Range/Units 04:29 WBC 10.1 (4.3-11.1) K/mcL Hgb 7.6 L (11.5-15.4) g/dL Hct 25.1 L (35.3-44.9) % Plt Count 209 (140-400) K/mcL Neutrophils # 8.4 (1.6-8.9) K/mcL BMP 07/07/16 04:29 Sodium 141 Potassium 4.0 Chloride 115 H Carbon Dioxide 17 L BUN 31 H Creatinine 1.32 H Glucose 83 Calcium 8.1 L - ABG Interpretation ABG results: ABG ABG pH 7.38 pH Units (7.32-7.45) 07/05/16 18:55 ABG pCO2 34 mmHg (35-45) L 07/05/16 18:55 ABG pO2 89 mmHg (85-104) 07/05/16 18:55 ABG O2 Saturation 97 % (95-98) 07/05/16 18:55 PT/INR, D-dimer PT 11.9 Seconds (9.4-12.1) 07/03/16 19:26 - VTE Documentation of Mechanical Device: Graduated compression elastic hosiery Consult Discharge Plan - Plan Referrals: Tj Ragsdale MD [Partnered Physician] - 07/11/16 8:40 am Jeff Castaneda MD [Primary Care Provider] - 07/13/16 10:40 am Mayito Fletcher DO [Partnered Physician] - 08/19/16 1:55 pm Willie Verduzco MD [Partnered Physician] - 08/11/16 2:00 pm
[2016-07-07] MEDS: Vancomycin 1,250 MG in D5% in Water 250 ML IVPB SCH (18:42)
[2016-07-07] MEDS: *HR* LORazepam 1 MG TABLET PO PRN (21:27)
[2016-07-08] MEDS: Piperacillin/Tazobactam 3.375 GM in D5% in Water (Mini-Bag+) 100 ML IVPB SCH ×3 (00:06→16:17)
[2016-07-08] MEDS: *HR* Heparin 5,000 UNIT/ML VIAL SQ SCH ×4 (00:07→22:05)
[2016-07-08] MEDS: *HR* OxyCODONE Immed Rel 5 MG TABLET PO PRN ×3 (03:24→16:42)
[2016-07-08] MEDS: Ipratropium/Albuterol Neb 3 ML IH SCH ×4 (04:24→22:48)
[2016-07-08 05:00] LABS: Basophils % 0.3 %; Eosinophils # 0.2 K/mcL (0.0-0.6); Eosinophils % 2.4 %; Hematocrit 24.4 % (35.3-44.9); Hemoglobin 7.5 g/dL (11.5-15.4); Immature Granulocytes % 0.4 % (0-4); Lymphocytes # 0.4 K/mcL (0.6-4.6); Mean Corpuscular HGB Conc 30.7 g/dL (31.6-35.5); Mean Corpuscular Hemoglobin 30.1 pg (28.0-33.3); Monocytes # 0.7 K/mcL (0.0-1.3); Neutrophils # 7.8 K/mcL (1.6-8.9); Platelet Count 215 K/mcL (140-400); Red Blood Count 2.49 M/mcL (3.82-4.97); Red Cell Distribution Width 13.1 % (11.5-14.5); Segmented Neutrophils % 84.9 %
[2016-07-08 05:10] LABS: Calcium 8.7 mg/dL (8.6-10.8); Magnesium 1.8 mg/dL (1.6-2.6); Phosphorous 2.3 mg/dL (2.3-4.7); Potassium 3.4 mEq/L (3.5-4.5)
[2016-07-08] MEDS: Tiotropium 18 MCG inhalation IH SCH (07:47)
[2016-07-08] MEDS: Cholecalciferol (D-3) 1,000 UNIT TABLET PO SCH (08:45)
[2016-07-08] MEDS: VITAMIN D3 PO SCH (08:45)
[2016-07-08] MEDS: Aspirin Enteric Coated 81 MG Tablet PO SCH (08:45)
[2016-07-08] MEDS: Ascorbic Acid 500 MG TABLET PO SCH (08:45)
[2016-07-08] MEDS: CALCIUM CARBONATE PO SCH (08:45)
[2016-07-08] MEDS: Isosorbide MONOnitrate (24 HR) 60 MG TAB.ER.24H PO SCH (08:45)
[2016-07-08] MEDS: hydrALAZINE 25 MG TABLET PO SCH ×3 (08:45→20:14)
[2016-07-08] MEDS: Metoprolol XL (24 HR) Succ 25 MG TAB.ER.24H PO SCH (08:45)
[2016-07-08] MEDS: Megestrol Acetate 400 MG/10 ML UDC PO SCH (08:47)
[2016-07-08] MEDS: Acetaminophen 325 MG TABLET PO PRN ×2 (08:58→22:06)
[2016-07-08] MEDS: Budesonide/Formoterol 160/4.5 MDI IH SCH ×2 (09:58→22:48)
[2016-07-08] MEDS: Furosemide 40 MG TABLET PO SCH (10:47)
[2016-07-08] MEDS: *HR* Morphine 2 MG/ML SYRINGE IVP PRN ×2 (13:48→20:06)
--- NOTE | 2016-07-08 17:44 | Internal Med Progress Note ---
Date of Encounter: 07/08/16 Time of Encounter: 17:41 - Assessment and plan (1) Hypoxia Current Visit: Yes Status: Acute Assessment and plan: Resolved Likely secondary to pneumonia Currently saturating well on Ventimask Continue to monitor O2 sat given history of COPD, O2 sat 89-92% (2) Aspiration pneumonia Current Visit: Yes Status: Acute Assessment and plan: Chest x-ray consistent with a right basilar opacity and given clinical presentation concerning for aspiration pneumonia continue vancomycin and Zosyn Pharmacy to dose antibiotics Pharmacy to monitor vancomycin trough Continue to monitor O2 sat, O2 supplementation as needed Follow-up blood cultures speech therapy evaluation appreciated, Honey thick liquids and pureed diet started Qualifiers: Aspiration pneumonia type: unspecified Laterality: right Lung location: lower lobe of lung Qualified Code(s): J69.0 - Pneumonitis due to inhalation of food and vomit (3) Fall Current Visit: Yes Status: Chronic Assessment and plan: Status post fall and has history of recurrent falls Will maintain fall precautions Physical therapy evaluation: rehab Qualifiers: Encounter type: initial encounter Qualified Code(s): W19.XXXA - Unspecified fall, initial encounter (4) Acute kidney injury superimposed on CKD Current Visit: Yes Status: Acute Assessment and plan: Kidney function significantly improved from previous day will continue to closely monitor BP within acceptable limits, therefore will continue to hold Lisinopril at this time. (5) CHF (congestive heart failure) Current Visit: Yes Status: Chronic Assessment and plan: 2-D echo noted to have left ventricular ejection fraction of 55%, with moderate left ventricular diastolic dysfunction Continue Lasix 40mg PO qd will monitor I/Os daily weights Qualifiers: Congestive heart failure type: diastolic Congestive heart failure chronicity: chronic Qualified Code(s): I50.32 - Chronic diastolic (congestive ) heart failure (6) Pelvis fracture, right Current Visit: Yes Status: Acute Assessment and plan: Status post fall, CT of pelvis noted to have pelvic rami fracture possible nondisplaced acetabular fracture Orthopedic eval appreciated Nonoperative treatment weightbearing as tolerated Continue pain control Supportive care Physical therapy while in house Qualifiers: Encounter type: initial encounter Fracture type: closed Qualified Code(s) : S32.9XXA - Fracture of unspecified parts of lumbosacral spine and pelvis, initial encounter for closed fracture (7) Anemia Current Visit: Yes Status: Chronic Assessment and plan: Patient's daughter reports that patient has chronic history of anemia requiring transfusions. EGD and colonoscopies have been essentially negative for any active bleeds as per daughter Drop in H&H however no active bleeding reported at this time and patient asymptomatic at this time will closely monitor and transfuse as needed Qualifiers: Anemia type: unspecified type Qualified Code(s): D64.9 - Anemia, unspecified (8) Dementia Current Visit: Yes Status: Chronic Assessment and plan: Continue home medications Qualifiers: Dementia type: unspecified type Dementia behavioral disturbance: without behavioral disturbance Qualified Code(s): F03.90 - Unspecified dementia without behavioral disturbance (9) CAD (coronary artery disease) Current Visit: Yes Status: Chronic Assessment and plan: No signs of angina present at this time Continue home medications Qualifiers: Coronary Disease-Associated Artery/Lesion type: [place] artery [place] vs. transplanted heart: [place] heart Associated angina: angina presence unspecified Qualified Code(s): I25.10 - Atherosclerotic heart disease of [place] coronary artery without angina pectoris (10) COPD (chronic obstructive pulmonary disease) Current Visit: Yes Status: Chronic Assessment and plan: Not in acute exacerbation Hypoxia likely secondary to pneumonia Bronchodilator support Monitor without steroid at this time O2 supplementation as needed will closely monitor. Qualifiers: COPD type: unspecified COPD Qualified Code(s): J44.9 - Chronic obstructive pulmonary disease, unspecified (11) DVT prophylaxis Current Visit: No Status: Acute Assessment and plan: Heparin subcutaneous (12) Anxiety Current Visit: No Status: Chronic (13) Metabolic acidemia Current Visit: Yes Status: Acute Assessment and plan: Resolved Will continue bicarb supplementation at this time - Subjective Interval history: Patient seen and examined at bedside. Mental status not at baseline but improved compared to previous day. Participating in physical therapy. - Constitutional Vitals: Temp Pulse Resp BP Pulse Ox 98.7 F 113 16 121/61 98 07/08/16 15:44 07/08/16 15:44 07/08/16 15:44 07/08/16 15:44 07/08/16 15:44 General appearance: Present: cooperative, A&O X 2, no acute distress, obese, answers questions appropriately - Head Head exam: Present: atraumatic, normocephalic - Eye Eye exam: Present: normal appearance, conjuntiva pink, sclera anicteric - Respiratory Respiratory exam: Absent: respiratory distress, wheezes (coarse breath sounds on bibasilar bases) - Cardiovascular Cardiovascular exam: Present: RRR, +S1, +S2 - GI/Abdominal GI/Abdominal exam: Present: normal bowel sounds, soft. Absent: tenderness - Extremities Exam Extremities exam: Present: pedal edema, warm, radial pulses palpable and symetrical - Neurological Exam Neurological exam: Present: alert Internal Medicine: Result - Labs CBC & Chem 7: 07/08/16 04:37 07/08/16 04:37 Labs: Short CBC 07/08/16 Range/Units 04:37 WBC 9.2 (4.3-11.1) K/mcL Hgb 7.5 L (11.5-15.4) g/dL Hct 24.4 L (35.3-44.9) % Plt Count 215 (140-400) K/mcL Neutrophils # 7.8 (1.6-8.9) K/mcL BMP 07/08/16 04:37 Sodium 143 Potassium 3.4 L Chloride 114 H Carbon Dioxide 20 BUN 28 H Creatinine 1.07 Glucose 92 Calcium 8.7 - ABG Interpretation ABG results: ABG ABG pH 7.38 pH Units (7.32-7.45) 07/05/16 18:55 ABG pCO2 34 mmHg (35-45) L 07/05/16 18:55 ABG pO2 89 mmHg (85-104) 07/05/16 18:55 ABG O2 Saturation 97 % (95-98) 07/05/16 18:55 PT/INR, D-dimer PT 11.9 Seconds (9.4-12.1) 07/03/16 19:26 - VTE Documentation of Mechanical Device: Intermittent pneumatic compression device Consult Discharge Plan - Plan Instructions: Sodium Bicarbonate (By mouth) Referrals: Tj Ragsdale MD [Partnered Physician] - 07/11/16 8:40 am Jeff Castaneda MD [Primary Care Provider] - 07/13/16 10:40 am Mayito Fletcher DO [Partnered Physician] - 08/19/16 1:55 pm Willie Verduzco MD [Partnered Physician] - 08/11/16 2:00 pm
[2016-07-08] MEDS: Vancomycin 1,250 MG in D5% in Water 250 ML IVPB SCH (18:16)
[2016-07-08] MEDS: *HR* LORazepam 1 MG TABLET PO PRN (22:06)
[2016-07-09] MEDS: Piperacillin/Tazobactam 3.375 GM in D5% in Water (Mini-Bag+) 100 ML IVPB SCH ×4 (00:49→23:03)
[2016-07-09] MEDS: *HR* Morphine 2 MG/ML SYRINGE IVP PRN ×3 (00:59→20:19)
[2016-07-09] MEDS: Ipratropium/Albuterol Neb 3 ML IH SCH ×4 (04:20→20:49)
[2016-07-09 07:21] LABS: Hematocrit 24.2 % (35.3-44.9); Hemoglobin 7.5 g/dL (11.5-15.4); Mean Corpuscular Volume 96.8 fL (83.0-100.0); Platelet Count 227 K/mcL (140-400); Red Cell Distribution Width 13.3 % (11.5-14.5)
[2016-07-09 07:27] LABS: Calcium 9.2 mg/dL (8.6-10.8); Potassium 3.4 mEq/L (3.5-4.5)
[2016-07-09] MEDS ORDERED: Potassium Chloride Elixir 20 MEQ/15 ML UDC PO ONE (08:17)
[2016-07-09] MEDS ORDERED: Aminoglycoside Consult 1 EACH MC ONE (08:25)
[2016-07-09] MEDS: Ascorbic Acid 500 MG TABLET PO SCH (09:18)
[2016-07-09] MEDS: *HR* Heparin 5,000 UNIT/ML VIAL SQ SCH ×3 (09:18→23:03)
[2016-07-09] MEDS: Furosemide 40 MG TABLET PO SCH (09:18)
[2016-07-09] MEDS: Cholecalciferol (D-3) 1,000 UNIT TABLET PO SCH (09:18)
[2016-07-09] MEDS: Isosorbide MONOnitrate (24 HR) 60 MG TAB.ER.24H PO SCH (09:18)
[2016-07-09] MEDS: Aspirin Enteric Coated 81 MG Tablet PO SCH (09:18)
[2016-07-09] MEDS: Metoprolol XL (24 HR) Succ 25 MG TAB.ER.24H PO SCH (09:18)
[2016-07-09] MEDS: Megestrol Acetate 400 MG/10 ML UDC PO SCH (09:18)
[2016-07-09] MEDS: *HR* OxyCODONE Immed Rel 5 MG TABLET PO PRN ×3 (09:18→23:27)
[2016-07-09] MEDS: CALCIUM CARBONATE PO SCH (09:19)
[2016-07-09] MEDS: VITAMIN D3 PO SCH (09:19)
[2016-07-09] MEDS: hydrALAZINE 25 MG TABLET PO SCH ×3 (09:33→20:19)
[2016-07-09] MEDS: Budesonide/Formoterol 160/4.5 MDI IH SCH ×2 (09:44→20:49)
[2016-07-09] MEDS: Tiotropium 18 MCG inhalation IH SCH (09:45)
--- NOTE | 2016-07-09 16:41 | Internal Med Progress Note ---
Date of Encounter: 07/09/16 Time of Encounter: 13:30 - Assessment and plan (1) Anemia Current Visit: Yes Status: Chronic Assessment and plan: Patient's daughter reports that patient has chronic history of anemia requiring transfusions. EGD and colonoscopies have been essentially negative for any active bleeds as per daughter H&H stable compared to yesterday no active bleeding reported at this time and patient asymptomatic at this time will closely monitor and transfuse as needed Qualifiers: Anemia type: unspecified type Qualified Code(s): D64.9 - Anemia, unspecified (2) Hypoxia Current Visit: Yes Status: Acute Assessment and plan: Resolved Likely secondary to pneumonia Currently saturating well on Ventimask Continue to monitor O2 sat given history of COPD, O2 sat 89-92% (3) Aspiration pneumonia Current Visit: Yes Status: Acute Assessment and plan: Chest x-ray consistent with a right basilar opacity and given clinical presentation concerning for aspiration pneumonia Clinically improving will de-escalate therapy and discontinue vancomycin Continue Zosyn Continue to monitor O2 sat and O2 supplementation patient on continuous O2 at home Follow-up blood cultures speech therapy evaluation appreciated, mechanically altered diet with nectar thick liquids. Modified barrium swallow on Monday Qualifiers: Aspiration pneumonia type: unspecified Laterality: right Lung location: lower lobe of lung Qualified Code(s): J69.0 - Pneumonitis due to inhalation of food and vomit (4) Fall Current Visit: Yes Status: Chronic Assessment and plan: Status post fall and has history of recurrent falls Will maintain fall precautions Physical therapy evaluation: rehab Qualifiers: Encounter type: initial encounter Qualified Code(s): W19.XXXA - Unspecified fall, initial encounter (5) Acute kidney injury superimposed on CKD Current Visit: Yes Status: Acute Assessment and plan: DANIEL resolved will continue to closely monitor BP within acceptable limits, therefore will continue to hold Lisinopril at this time. (6) CHF (congestive heart failure) Current Visit: Yes Status: Chronic Assessment and plan: 2-D echo noted to have left ventricular ejection fraction of 55%, with moderate left ventricular diastolic dysfunction Continue Lasix 40mg PO qd will monitor I/Os daily weights Qualifiers: Congestive heart failure type: diastolic Congestive heart failure chronicity: chronic Qualified Code(s): I50.32 - Chronic diastolic (congestive ) heart failure (7) Pelvis fracture, right Current Visit: Yes Status: Acute Assessment and plan: Status post fall, CT of pelvis noted to have pelvic rami fracture possible nondisplaced acetabular fracture Orthopedic eval appreciated Nonoperative treatment weightbearing as tolerated Continue pain control Supportive care Physical therapy while in house Qualifiers: Encounter type: initial encounter Fracture type: closed Qualified Code(s) : S32.9XXA - Fracture of unspecified parts of lumbosacral spine and pelvis, initial encounter for closed fracture (8) Dementia Current Visit: Yes Status: Chronic Assessment and plan: Continue home medications Qualifiers: Dementia type: unspecified type Dementia behavioral disturbance: without behavioral disturbance Qualified Code(s): F03.90 - Unspecified dementia without behavioral disturbance (9) CAD (coronary artery disease) Current Visit: Yes Status: Chronic Assessment and plan: No signs of angina present at this time Continue home medications Qualifiers: Coronary Disease-Associated Artery/Lesion type: [place] artery [place] vs. transplanted heart: [place] heart Associated angina: angina presence unspecified Qualified Code(s): I25.10 - Atherosclerotic heart disease of [place] coronary artery without angina pectoris (10) COPD (chronic obstructive pulmonary disease) Current Visit: Yes Status: Chronic Assessment and plan: Not in acute exacerbation Hypoxia likely secondary to pneumonia Bronchodilator support Monitor without steroid at this time O2 supplementation as needed will closely monitor. Qualifiers: COPD type: unspecified COPD Qualified Code(s): J44.9 - Chronic obstructive pulmonary disease, unspecified (11) DVT prophylaxis Current Visit: No Status: Acute Assessment and plan: Heparin subcutaneous (12) Anxiety Current Visit: No Status: Chronic Assessment and plan: Continue home medications (13) Metabolic acidemia Current Visit: Yes Status: Acute Assessment and plan: Resolved Will continue bicarb supplementation at this time - Subjective Interval history: Patient seen and examined with daughter present at bedside. Patient's mental status significantly improved from previous day. AAO x 3 Speech therapy evaluated the patient again and recommended mechanically altered diet and a barium study on Monday - Constitutional Vitals: Temp Pulse Resp BP Pulse Ox 98.5 F 94 20 147/63 97 07/09/16 14:36 07/09/16 14:36 07/09/16 15:59 07/09/16 14:36 07/09/16 15:59 General appearance: Present: cooperative, A&O X 3, no acute distress, obese, answers questions appropriately - Head Head exam: Present: atraumatic, normocephalic - Eye Eye exam: Present: conjuntiva pink, sclera anicteric - Respiratory Respiratory exam: Absent: rales, respiratory distress (equal air entry bilaterally), wheezes - Cardiovascular Cardiovascular exam: Present: RRR, +S1, +S2. Absent: diastolic murmur, gallop, rubs, systolic murmur - GI/Abdominal GI/Abdominal exam: Present: normal bowel sounds, soft, no peritoneal signs. Absent: distended, tenderness - Extremities Exam Extremities exam: Present: pedal edema, warm, radial pulses palpable and symetrical - Neurological Exam Neurological exam: Present: alert, oriented X3 - Psychiatric Psychiatric exam: Present: normal affect, normal mood Internal Medicine: Result - Labs CBC & Chem 7: 07/09/16 06:57 07/09/16 06:57 Labs: Short CBC 07/09/16 Range/Units 06:57 WBC 7.1 (4.3-11.1) K/mcL Hgb 7.5 L (11.5-15.4) g/dL Hct 24.2 L (35.3-44.9) % Plt Count 227 (140-400) K/mcL BMP 07/09/16 06:57 Sodium 144 Potassium 3.4 L Chloride 113 H Carbon Dioxide 21 BUN 28 H Creatinine 1.11 Glucose 83 Calcium 9.2 - ABG Interpretation ABG results: ABG ABG pH 7.38 pH Units (7.32-7.45) 07/05/16 18:55 ABG pCO2 34 mmHg (35-45) L 07/05/16 18:55 ABG pO2 89 mmHg (85-104) 07/05/16 18:55 ABG O2 Saturation 97 % (95-98) 07/05/16 18:55 PT/INR, D-dimer PT 11.9 Seconds (9.4-12.1) 07/03/16 19:26 - VTE Documentation of Mechanical Device: Intermittent pneumatic compression device Consult Discharge Plan - Plan Instructions: Sodium Bicarbonate (By mouth) Referrals: Tj Ragsdale MD [Partnered Physician] - 07/11/16 8:40 am Jeff Castaneda MD [Primary Care Provider] - 07/13/16 10:40 am Mayito Fletcher DO [Partnered Physician] - 08/19/16 1:55 pm Willie Verduzco MD [Partnered Physician] - 08/11/16 2:00 pm
[2016-07-10] MEDS: *HR* Morphine 2 MG/ML SYRINGE IVP PRN (03:50)
[2016-07-10] MEDS: *HR* LORazepam 1 MG TABLET PO PRN (03:50)
[2016-07-10] MEDS: Ipratropium/Albuterol Neb 3 ML IH SCH ×4 (04:07→22:18)
[2016-07-10] MEDS: *HR* Heparin 5,000 UNIT/ML VIAL SQ SCH ×2 (06:25→15:58)
[2016-07-10 06:34] LABS: Basophils % 0.4 %; Eosinophils # 0.3 K/mcL (0.0-0.6); Eosinophils % 3.5 %; Hemoglobin 8.3 g/dL (11.5-15.4); Immature Granulocytes % 0.7 % (0-4); Lymphocytes # 0.6 K/mcL (0.6-4.6); Lymphocytes % 7.2 %; Mean Corpuscular HGB Conc 30.7 g/dL (31.6-35.5); Mean Corpuscular Hemoglobin 29.6 pg (28.0-33.3); Mean Corpuscular Volume 96.4 fL (83.0-100.0); Mean Platelet Volume 10.1 fL (9.4-12.4); Monocytes # 0.9 K/mcL (0.0-1.3); Monocytes % 10.5 %; Neutrophils # 6.5 K/mcL (1.6-8.9); Platelet Count 276 K/mcL (140-400); Red Cell Distribution Width 13.2 % (11.5-14.5); Segmented Neutrophils % 77.7 %
[2016-07-10 07:00] LABS: Calcium 9.5 mg/dL (8.6-10.8); Magnesium 1.5 mg/dL (1.6-2.6); Potassium 3.5 mEq/L (3.5-4.5)
[2016-07-10] MEDS: Megestrol Acetate 400 MG/10 ML UDC PO SCH (07:37)
[2016-07-10] MEDS: Piperacillin/Tazobactam 3.375 GM in D5% in Water (Mini-Bag+) 100 ML IVPB SCH ×2 (07:37→15:58)
[2016-07-10] MEDS: Metoprolol XL (24 HR) Succ 25 MG TAB.ER.24H PO SCH (07:38)
[2016-07-10] MEDS: Ascorbic Acid 500 MG TABLET PO SCH (07:38)
[2016-07-10] MEDS: CALCIUM CARBONATE PO SCH (07:38)
[2016-07-10] MEDS: Furosemide 40 MG TABLET PO SCH (07:38)
[2016-07-10] MEDS: Isosorbide MONOnitrate (24 HR) 60 MG TAB.ER.24H PO SCH (07:38)
[2016-07-10] MEDS: Cholecalciferol (D-3) 1,000 UNIT TABLET PO SCH (07:38)
[2016-07-10] MEDS: VITAMIN D3 PO SCH (07:38)
[2016-07-10] MEDS: Aspirin Enteric Coated 81 MG Tablet PO SCH (07:38)
[2016-07-10] MEDS: hydrALAZINE 25 MG TABLET PO SCH ×3 (07:38→21:51)
[2016-07-10] MEDS: *HR* OxyCODONE Immed Rel 5 MG TABLET PO PRN ×2 (07:38→16:46)
[2016-07-10] MEDS ORDERED: Magnesium Sulfate 1 GM in D5% in Water 100 ML IVPB ONE (08:38)
--- NOTE | 2016-07-10 09:28 | Internal Med Progress Note ---
Date of Encounter: 07/10/16 Time of Encounter: 09:00 - Assessment and plan (1) Anemia Current Visit: Yes Status: Chronic Assessment and plan: Patient's daughter reports that patient has chronic history of anemia requiring transfusions. EGD and colonoscopies have been essentially negative for any active bleeds as per daughter H&H improved compared to yesterday no active bleeding reported at this time and patient asymptomatic at this time will closely monitor and transfuse as needed Qualifiers: Anemia type: unspecified type Qualified Code(s): D64.9 - Anemia, unspecified (2) Hypoxia Current Visit: Yes Status: Resolved Assessment and plan: Patient chronically on home oxygen currently saturating well on nasal cannula continue treatment for aspiration pneumonia (3) Aspiration pneumonia Current Visit: Yes Status: Acute Assessment and plan: Chest x-ray consistent with a right basilar opacity and given clinical presentation concerning for aspiration pneumonia Clinically improving de-escalated therapy Continue Zosyn, will switch to PO abx in am(07/11/16) to finish a course for 7days. (Day 10/02) Continue to monitor O2 sat and O2 supplementation patient on continuous O2 at home Follow-up blood cultures speech therapy evaluation appreciated, mechanically altered diet with nectar thick liquids. Modified barrium swallow on Monday(07/11/16) If remains stable and no further intervention recommended after the MBS study, likely d/c to SNF in am Qualifiers: Aspiration pneumonia type: unspecified Laterality: right Lung location: lower lobe of lung Qualified Code(s): J69.0 - Pneumonitis due to inhalation of food and vomit (4) Fall Current Visit: Yes Status: Chronic Assessment and plan: Status post fall and has history of recurrent falls Will maintain fall precautions Physical therapy evaluation: rehab Qualifiers: Encounter type: initial encounter Qualified Code(s): W19.XXXA - Unspecified fall, initial encounter (5) Acute kidney injury superimposed on CKD Current Visit: Yes Status: Acute Assessment and plan: Resolved (6) CHF (congestive heart failure) Current Visit: Yes Status: Chronic Assessment and plan: 2-D echo noted to have left ventricular ejection fraction of 55%, with moderate left ventricular diastolic dysfunction Continue Lasix 40mg PO qd continue home medications Qualifiers: Congestive heart failure type: diastolic Congestive heart failure chronicity: chronic Qualified Code(s): I50.32 - Chronic diastolic (congestive ) heart failure (7) Pelvis fracture, right Current Visit: Yes Status: Acute Assessment and plan: Status post fall, CT of pelvis noted to have pelvic rami fracture possible nondisplaced acetabular fracture Orthopedic eval appreciated Nonoperative treatment weightbearing as tolerated Continue pain control Supportive care Physical therapy while in house Qualifiers: Encounter type: initial encounter Fracture type: closed Qualified Code(s) : S32.9XXA - Fracture of unspecified parts of lumbosacral spine and pelvis, initial encounter for closed fracture (8) Dementia Current Visit: Yes Status: Chronic Assessment and plan: Continue home medications Qualifiers: Dementia type: unspecified type Dementia behavioral disturbance: without behavioral disturbance Qualified Code(s): F03.90 - Unspecified dementia without behavioral disturbance (9) CAD (coronary artery disease) Current Visit: Yes Status: Chronic Assessment and plan: No signs of angina present at this time Continue home medications Qualifiers: Coronary Disease-Associated Artery/Lesion type: [place] artery [place] vs. transplanted heart: [place] heart Associated angina: angina presence unspecified Qualified Code(s): I25.10 - Atherosclerotic heart disease of [place] coronary artery without angina pectoris (10) COPD (chronic obstructive pulmonary disease) Current Visit: Yes Status: Chronic Assessment and plan: Not in acute exacerbation Hypoxia likely secondary to pneumonia Bronchodilator support Monitor without steroid at this time O2 supplementation as needed will closely monitor. Qualifiers: COPD type: unspecified COPD Qualified Code(s): J44.9 - Chronic obstructive pulmonary disease, unspecified (11) DVT prophylaxis Current Visit: No Status: Acute Assessment and plan: Heparin subcutaneous (12) Anxiety Current Visit: No Status: Chronic Assessment and plan: Continue home medications (13) Metabolic acidemia Current Visit: Yes Status: Acute Assessment and plan: Resolved Will continue bicarb supplementation at this time (14) Hypomagnesemia Current Visit: Yes Status: Acute Assessment and plan: Mag supplemented continue to monitor electrolytes and replace as needed - Subjective Interval history: Patient seen and examined resting in chair. tolerating mechanically altered diet well. No overnight issues reported. Modified barium swallow study in am(07/11/16) - Constitutional Vitals: Temp Pulse Resp BP Pulse Ox 98.3 F 107 20 146/73 96 07/10/16 06:43 07/10/16 06:43 07/10/16 06:43 07/10/16 06:43 07/10/16 06:43 General appearance: Present: cooperative, A&O X 3 (frail), no acute distress, obese, answers questions appropriately - Head Head exam: Present: atraumatic, normocephalic - Eye Eye exam: Present: normal appearance, conjuntiva pink, sclera anicteric - Respiratory Respiratory exam: Present: CTAB. Absent: respiratory distress, wheezes - Cardiovascular Cardiovascular exam: Present: RRR, +S1, +S2 - GI/Abdominal GI/Abdominal exam: Present: normal bowel sounds, soft. Absent: distended, tenderness - Extremities Exam Extremities exam: Present: warm, radial pulses palpable and symetrical. Absent : pedal edema, tenderness - Neurological Exam Neurological exam: Present: alert, oriented X3 - Psychiatric Psychiatric exam: Present: normal affect, normal mood Internal Medicine: Result - Labs CBC & Chem 7: 07/10/16 06:14 07/10/16 06:14 Labs: Short CBC 07/10/16 Range/Units 06:14 WBC 8.4 (4.3-11.1) K/mcL Hgb 8.3 L (11.5-15.4) g/dL Hct 27.0 L (35.3-44.9) % Plt Count 276 (140-400) K/mcL Neutrophils # 6.5 (1.6-8.9) K/mcL BMP 07/10/16 06:14 Sodium 140 Potassium 3.5 Chloride 109 Carbon Dioxide 19 BUN 26 H Creatinine 1.07 Glucose 78 Calcium 9.5 - ABG Interpretation ABG results: ABG ABG pH 7.38 pH Units (7.32-7.45) 07/05/16 18:55 ABG pCO2 34 mmHg (35-45) L 07/05/16 18:55 ABG pO2 89 mmHg (85-104) 07/05/16 18:55 ABG O2 Saturation 97 % (95-98) 07/05/16 18:55 PT/INR, D-dimer PT 11.9 Seconds (9.4-12.1) 07/03/16 19:26 - VTE Documentation of Mechanical Device: Intermittent pneumatic compression device Consult Discharge Plan - Plan Instructions: Sodium Bicarbonate (By mouth) Referrals: Tj Ragsdale MD [Partnered Physician] - 07/11/16 8:40 am Jeff Castaneda MD [Primary Care Provider] - 07/13/16 10:40 am Mayito Fletcher DO [Partnered Physician] - 08/19/16 1:55 pm Willie Verduzco MD [Partnered Physician] - 08/11/16 2:00 pm
[2016-07-10] MEDS: Budesonide/Formoterol 160/4.5 MDI IH SCH ×2 (09:46→22:16)
[2016-07-10] MEDS: Tiotropium 18 MCG inhalation IH SCH (09:46)
[2016-07-11] MEDS: *HR* LORazepam 1 MG TABLET PO PRN (00:32)
[2016-07-11] MEDS: Piperacillin/Tazobactam 3.375 GM in D5% in Water (Mini-Bag+) 100 ML IVPB SCH ×4 (00:32→22:56)
[2016-07-11] MEDS: *HR* OxyCODONE Immed Rel 5 MG TABLET PO PRN ×4 (00:32→22:56)
[2016-07-11] MEDS: *HR* Heparin 5,000 UNIT/ML VIAL SQ SCH ×4 (00:32→21:48)
[2016-07-11] MEDS: *HR* Morphine 2 MG/ML SYRINGE IVP PRN (01:53)
[2016-07-11] MEDS: Ipratropium/Albuterol Neb 3 ML IH SCH ×4 (04:08→22:06)
[2016-07-11 05:24] LABS: Basophils % 0.5 %; Eosinophils # 0.3 K/mcL (0.0-0.6); Eosinophils % 3.7 %; Hematocrit 26.2 % (35.3-44.9); Immature Granulocytes % 0.7 % (0-4); Lymphocytes # 0.7 K/mcL (0.6-4.6); Lymphocytes % 8.4 %; Mean Corpuscular HGB Conc 30.5 g/dL (31.6-35.5); Mean Corpuscular Hemoglobin 29.3 pg (28.0-33.3); Mean Platelet Volume 9.8 fL (9.4-12.4); Monocytes # 0.8 K/mcL (0.0-1.3); Monocytes % 9.8 %; Neutrophils # 6.3 K/mcL (1.6-8.9); Platelet Count 273 K/mcL (140-400); Red Blood Count 2.73 M/mcL (3.82-4.97); Red Cell Distribution Width 13.5 % (11.5-14.5); Segmented Neutrophils % 76.9 %
[2016-07-11 05:40] LABS: BUN/Creatinine Ratio 23 (6-26); Blood Urea Nitrogen 23 mg/dL (7-20); Calcium 9.3 mg/dL (8.6-10.8); Carbon Dioxide 20 mEq/L (19-29); Chloride 110 mEq/L (98-109); Glucose 87 mg/dL (70-99); Magnesium 1.5 mg/dL (1.6-2.6); Osmolality,Calculated 295 (280-300); Phosphorous 4.5 mg/dL (2.3-4.7); Potassium 3.2 mEq/L (3.5-4.5); Sodium 141 mEq/L (136-145); eGFR For African Americans > 60 (> 60); eGFR For Non-African Americans 54 (> 60)
[2016-07-11] MEDS ORDERED: Magnesium Sulfate 1 GM in D5% in Water 100 ML IVPB ONE (08:13)
[2016-07-11] MEDS: hydrALAZINE 25 MG TABLET PO SCH ×3 (10:29→21:47)
[2016-07-11] MEDS: Metoprolol XL (24 HR) Succ 25 MG TAB.ER.24H PO SCH (10:30)
[2016-07-11] MEDS: Furosemide 40 MG TABLET PO SCH (10:30)
[2016-07-11] MEDS: Aspirin Enteric Coated 81 MG Tablet PO SCH (10:30)
[2016-07-11] MEDS: Isosorbide MONOnitrate (24 HR) 60 MG TAB.ER.24H PO SCH (10:37)
[2016-07-11] MEDS: CALCIUM CARBONATE PO SCH (10:38)
[2016-07-11] MEDS: VITAMIN D3 PO SCH (10:38)
[2016-07-11] MEDS: Megestrol Acetate 400 MG/10 ML UDC PO SCH ×2 (10:38→11:01)
[2016-07-11] MEDS: Ascorbic Acid 500 MG TABLET PO SCH (10:38)
[2016-07-11] MEDS: Cholecalciferol (D-3) 1,000 UNIT TABLET PO SCH (10:38)
[2016-07-11] MEDS: Tiotropium 18 MCG inhalation IH SCH (11:06)
[2016-07-11] MEDS: Budesonide/Formoterol 160/4.5 MDI IH SCH ×2 (11:09→22:05)
--- NOTE | 2016-07-11 16:34 | Internal Med Progress Note ---
Date of Encounter: 07/11/16 Time of Encounter: 09:00 - Assessment and plan (1) Anemia Current Visit: Yes Status: Chronic Assessment and plan: Patient's daughter reports that patient has chronic history of anemia requiring transfusions. EGD and colonoscopies have been essentially negative for any active bleeds as per daughter H&H within acceptable range no active bleeding reported at this time and patient asymptomatic at this time will closely monitor and transfuse as needed Qualifiers: Anemia type: unspecified type Qualified Code(s): D64.9 - Anemia, unspecified (2) Hypoxia Current Visit: Yes Status: Resolved Assessment and plan: Patient chronically on home oxygen currently saturating well on nasal cannula continue treatment for aspiration pneumonia (3) Aspiration pneumonia Current Visit: Yes Status: Acute Assessment and plan: Chest x-ray consistent with a right basilar opacity and given clinical presentation concerning for aspiration pneumonia Clinically improving de-escalated therapy Continue Zosyn, will switch to PO abx in am(07/12/16) to finish a course for 7days. (Day 6) Continue to monitor O2 sat and O2 supplementation patient on continuous O2 at home Follow-up blood cultures speech therapy evaluation appreciated, mechanically altered diet with nectar thick liquids. Modified barrium swallow (07/11/16) If remains stable and no further intervention recommended after the MBS study, likely d/c to SNF in am Qualifiers: Aspiration pneumonia type: unspecified Laterality: right Lung location: lower lobe of lung Qualified Code(s): J69.0 - Pneumonitis due to inhalation of food and vomit (4) Fall Current Visit: Yes Status: Chronic Assessment and plan: Status post fall and has history of recurrent falls Will maintain fall precautions Physical therapy evaluation: rehab Qualifiers: Encounter type: initial encounter Qualified Code(s): W19.XXXA - Unspecified fall, initial encounter (5) Acute kidney injury superimposed on CKD Current Visit: Yes Status: Acute Assessment and plan: Resolved (6) CHF (congestive heart failure) Current Visit: Yes Status: Chronic Assessment and plan: 2-D echo noted to have left ventricular ejection fraction of 55%, with moderate left ventricular diastolic dysfunction Continue Lasix 40mg PO qd continue home medications Qualifiers: Congestive heart failure type: diastolic Congestive heart failure chronicity: chronic Qualified Code(s): I50.32 - Chronic diastolic (congestive ) heart failure (7) Pelvis fracture, right Current Visit: Yes Status: Acute Assessment and plan: Status post fall, CT of pelvis noted to have pelvic rami fracture possible nondisplaced acetabular fracture Orthopedic eval appreciated Nonoperative treatment weightbearing as tolerated Continue pain control Supportive care Physical therapy while in house Qualifiers: Encounter type: initial encounter Fracture type: closed Qualified Code(s) : S32.9XXA - Fracture of unspecified parts of lumbosacral spine and pelvis, initial encounter for closed fracture (8) Dementia Current Visit: Yes Status: Chronic Assessment and plan: Continue home medications Qualifiers: Dementia type: unspecified type Dementia behavioral disturbance: without behavioral disturbance Qualified Code(s): F03.90 - Unspecified dementia without behavioral disturbance (9) CAD (coronary artery disease) Current Visit: Yes Status: Chronic Assessment and plan: No signs of angina present at this time Continue home medications Qualifiers: Coronary Disease-Associated Artery/Lesion type: [place] artery [place] vs. transplanted heart: [place] heart Associated angina: angina presence unspecified Qualified Code(s): I25.10 - Atherosclerotic heart disease of [place] coronary artery without angina pectoris (10) COPD (chronic obstructive pulmonary disease) Current Visit: Yes Status: Chronic Assessment and plan: Not in acute exacerbation Hypoxia likely secondary to pneumonia Bronchodilator support Monitor without steroid at this time O2 supplementation as needed will closely monitor. Qualifiers: COPD type: unspecified COPD Qualified Code(s): J44.9 - Chronic obstructive pulmonary disease, unspecified (11) DVT prophylaxis Current Visit: No Status: Acute Assessment and plan: Heparin subcutaneous (12) Anxiety Current Visit: No Status: Chronic Assessment and plan: Continue home medications (13) Metabolic acidemia Current Visit: Yes Status: Acute Assessment and plan: Resolved Will continue bicarb supplementation at this time (14) Hypomagnesemia Current Visit: Yes Status: Acute Assessment and plan: Mag supplemented continue to monitor electrolytes and replace as needed - Subjective Interval history: Patient seen and examined resting in chair. Scheduled for a MBS today. Noted to be in mild respiratory distress, saturating well on nasal cannula. - Constitutional Vitals: Temp Pulse Resp BP Pulse Ox 97.5 F L 84 17 118/51 92 L 07/11/16 16:03 07/11/16 16:03 07/11/16 16:03 07/11/16 16:03 07/11/16 16:03 General appearance: Present: cooperative, A&O X 3 (frail), no acute distress, obese, answers questions appropriately - Head Head exam: Present: atraumatic, normocephalic - Eye Eye exam: Present: normal appearance, conjuntiva pink, sclera anicteric - Respiratory Respiratory exam: Absent: wheezes (coarse breath sounds on bilateral lower bases ) - Cardiovascular Cardiovascular exam: Present: RRR, +S1, +S2 - GI/Abdominal GI/Abdominal exam: Present: normal bowel sounds. Absent: tenderness - Extremities Exam Extremities exam: Present: warm, radial pulses palpable and symetrical - Neurological Exam Neurological exam: Present: alert, oriented X3 - Psychiatric Psychiatric exam: Present: normal affect, normal mood Internal Medicine: Result - Labs CBC & Chem 7: 07/11/16 05:03 07/11/16 05:03 Labs: Short CBC 07/11/16 Range/Units 05:03 WBC 8.2 (4.3-11.1) K/mcL Hgb 8.0 L (11.5-15.4) g/dL Hct 26.2 L (35.3-44.9) % Plt Count 273 (140-400) K/mcL Neutrophils # 6.3 (1.6-8.9) K/mcL BMP 07/11/16 05:03 Sodium 141 Potassium 3.2 L Chloride 110 H Carbon Dioxide 20 BUN 23 H Creatinine 0.99 Glucose 87 Calcium 9.3 - ABG Interpretation ABG results: ABG ABG pH 7.38 pH Units (7.32-7.45) 07/05/16 18:55 ABG pCO2 34 mmHg (35-45) L 07/05/16 18:55 ABG pO2 89 mmHg (85-104) 07/05/16 18:55 ABG O2 Saturation 97 % (95-98) 07/05/16 18:55 PT/INR, D-dimer PT 11.9 Seconds (9.4-12.1) 07/03/16 19:26 - Impressions Impressions Videofluoroscopic Swallow 07/11/16 00:01 IMPRESSION: Swallowing mechanism grossly within normal limits however, there was penetration and aspiration noted with the thin liquids and deep penetration with the nectar. Please see separate speech pathology report for full discussion of findings and recommendations. D/ / Cm Sun MD / Cm Sun MD Interpreting Provider: Cm Sun MD - VTE Documentation of Mechanical Device: Intermittent pneumatic compression device Consult Discharge Plan - Plan Instructions: Sodium Bicarbonate (By mouth) Referrals: Tj Ragsdale MD [Partnered Physician] - 07/11/16 8:40 am Jeff Castaneda MD [Primary Care Provider] - 07/13/16 10:40 am Mayito Fletcher DO [Partnered Physician] - 08/19/16 1:55 pm Willie Verduzco MD [Partnered Physician] - 08/11/16 2:00 pm
[2016-07-12] MEDS: *HR* LORazepam 1 MG TABLET PO PRN (02:35)
[2016-07-12] MEDS: Acetaminophen 325 MG TABLET PO PRN (02:45)
[2016-07-12] MEDS: *HR* OxyCODONE Immed Rel 5 MG TABLET PO PRN ×3 (04:10→14:43)
[2016-07-12] MEDS: Ipratropium/Albuterol Neb 3 ML IH SCH ×3 (04:38→16:16)
[2016-07-12] MEDS: *HR* Heparin 5,000 UNIT/ML VIAL SQ SCH (06:30)
[2016-07-12 07:03] LABS: Basophils % 0.6 %; Eosinophils # 0.3 K/mcL (0.0-0.6); Eosinophils % 4.3 %; Hemoglobin 8.1 g/dL (11.5-15.4); Immature Granulocytes % 1.1 % (0-4); Lymphocytes # 0.7 K/mcL (0.6-4.6); Lymphocytes % 9.2 %; Mean Corpuscular HGB Conc 31.2 g/dL (31.6-35.5); Mean Corpuscular Volume 96.3 fL (83.0-100.0); Mean Platelet Volume 10.3 fL (9.4-12.4); Monocytes # 0.8 K/mcL (0.0-1.3); Monocytes % 11.4 %; Neutrophils # 5.3 K/mcL (1.6-8.9); Platelet Count 289 K/mcL (140-400); Red Cell Distribution Width 13.6 % (11.5-14.5); Segmented Neutrophils % 73.4 %
[2016-07-12 07:21] LABS: BUN/Creatinine Ratio 18 (6-26); Blood Urea Nitrogen 17 mg/dL (7-20); Calcium 9.3 mg/dL (8.6-10.8); Carbon Dioxide 22 mEq/L (19-29); Chloride 111 mEq/L (98-109); Glucose 86 mg/dL (70-99); Magnesium 1.6 mg/dL (1.6-2.6); Osmolality,Calculated 297 (280-300); Potassium 3.4 mEq/L (3.5-4.5); Sodium 143 mEq/L (136-145); eGFR For African Americans > 60 (> 60); eGFR For Non-African Americans 59 (> 60)
[2016-07-12] MEDS: Metoprolol XL (24 HR) Succ 25 MG TAB.ER.24H PO SCH (10:20)
[2016-07-12] MEDS: Aspirin Enteric Coated 81 MG Tablet PO SCH (10:20)
[2016-07-12] MEDS: hydrALAZINE 25 MG TABLET PO SCH (10:21)
[2016-07-12] MEDS: Isosorbide MONOnitrate (24 HR) 60 MG TAB.ER.24H PO SCH (10:21)
[2016-07-12] MEDS: Cholecalciferol (D-3) 1,000 UNIT TABLET PO SCH (10:21)
[2016-07-12] MEDS: Piperacillin/Tazobactam 3.375 GM in D5% in Water (Mini-Bag+) 100 ML IVPB SCH (10:22)
[2016-07-12] MEDS: Ascorbic Acid 500 MG TABLET PO SCH (10:22)
[2016-07-12] MEDS: Megestrol Acetate 400 MG/10 ML UDC PO SCH (10:22)
[2016-07-12] MEDS: Furosemide 40 MG TABLET PO SCH (10:22)
[2016-07-12] MEDS: VITAMIN D3 PO SCH (10:23)
[2016-07-12] MEDS: CALCIUM CARBONATE PO SCH (10:23)
[2016-07-12] MEDS: Tiotropium 18 MCG inhalation IH SCH (11:29)
[2016-07-12] MEDS: Budesonide/Formoterol 160/4.5 MDI IH SCH (11:29)
[2016-07-12] MEDS ORDERED: Potassium Chloride Elixir 20 MEQ/15 ML UDC PO ONE (12:31)
--- NOTE | 2016-07-12 13:29 | Discharge Summary ---
Date of Encounter: 07/12/16 Time of Encounter: 12:30 - Discharge Diagnosis (1) Hip fracture, right Priority: Primary Status: Acute Qualifiers: Encounter type: initial encounter Fracture type: closed Qualified Code(s) : S72.001A - Fracture of unspecified part of neck of right femur, initial encounter for closed fracture (2) Fall Priority: Primary Status: Acute Qualifiers: Encounter type: initial encounter Qualified Code(s): W19.XXXA - Unspecified fall, initial encounter (3) Acute and chronic respiratory failure with hypoxia Priority: Primary Status: Acute (4) Aspiration pneumonia Priority: Primary Status: Acute Qualifiers: Aspiration pneumonia type: unspecified Laterality: right Lung location: lower lobe of lung Qualified Code(s): J69.0 - Pneumonitis due to inhalation of food and vomit (5) Acute kidney injury superimposed on CKD Priority: Primary Status: Resolved (6) Hypomagnesemia Priority: Primary Status: Resolved (7) Dementia Priority: Secondary Status: Chronic Qualifiers: Dementia type: Alzheimer's disease Alzheimer's disease onset: late-onset Dementia behavioral disturbance: without behavioral disturbance Qualified Code (s): G30.1 - Alzheimer's disease with late onset; F02.80 - Dementia in other diseases classified elsewhere without behavioral disturbance (8) Hypertension Priority: Secondary Status: Chronic Qualifiers: Hypertension type: essential hypertension Qualified Code(s): I10 - Essential (primary) hypertension (9) CHF (congestive heart failure) Priority: Secondary Status: Chronic Qualifiers: Congestive heart failure type: diastolic Congestive heart failure chronicity: chronic Qualified Code(s): I50.32 - Chronic diastolic (congestive ) heart failure (10) CKD (chronic kidney disease) Priority: Secondary Status: Chronic Qualifiers: Chronic kidney disease stage: stage 3 (moderate) Qualified Code(s): N18.3 - Chronic kidney disease, stage 3 (moderate) - Discharge Medications Prescriptions: Amoxicillin/Clavulanate [Augmentin] 500 mg PO BIDWM #6 tablet OxyCODONE Immed Rel [Roxicodone 5 MG] 5 mg PO Q4H PRN #10 tablet PRN Reason: Severe Pain (>7) Tramadol HCl [Ultram] 50 mg PO TID PRN #20 tab PRN Reason: Moderate Pain Home Medications: Budesonide/Formoterol 160/4.5 [Symbicort] 2 puff IH BID 09/25/15 [History] Clopidogrel [Plavix] 75 mg PO DAILY 02/20/15 [History] Furosemide [Lasix] 40 mg PO DAILY 02/20/15 [History] Potassium Chloride 20 meq PO DAILY 02/20/15 [History] Tiotropium [Spiriva] 18 mcg IH DAILY 02/20/15 [History] BuPROPion SR (12 HR) [Wellbutrin SR] 150 mg PO BID 03/25/15 [History] Sertraline [Zoloft] 100 mg PO DAILY 03/25/15 [History] Donepezil [Aricept] 10 mg PO HS 04/03/15 [History] Alendronate Sodium [Fosamax] 70 mg PO MO 07/09/15 [History] Ascorbate Calcium [Vitamin C] 500 mg PO DAILY 07/09/15 [History] Aspirin [Adult Low Dose Aspirin EC] 81 mg PO DAILY 07/09/15 [History] Calcium Carbonate/Vitamin D3 [Calcium 500-Vit D3 400 Tablet] 1 tab PO DAILY 04/13 [History] Ferrous Sulfate 325 mg PO DAILY 07/09/15 [History] Isosorbide MONOnitrate (24 HR) [Imdur] 60 mg PO DAILY 07/09/15 [History] Losartan [Cozaar] 100 mg PO DAILY 07/09/15 [History] Metoprolol XL (24 HR) Succ [Toprol Xl] 25 mg PO DAILY 07/09/15 [History] Simvastatin [Zocor] 40 mg PO QPM 07/09/15 [History] Hydralazine HCl 50 mg PO TID 11/27/15 [History] Cholecalciferol (D-3) [Vitamin D] 1,000 unit PO DAILY 02/22/16 [History] Nitroglycerin [Nitrostat] 0.4 mg SL PRN PRN #30 tab.subl 02/26/16 [Rx] Albuterol Neb [Proventil Neb] 2.5 mg IH Q4HR 07/04/16 [History] Amoxicillin/Clavulanate [Augmentin] 500 mg PO BIDWM #6 tablet 07/12/16 [Rx] LORazepam [Ativan] 1 mg PO HS #10 07/12/16 [Rx] OxyCODONE Immed Rel [Roxicodone 5 MG] 5 mg PO Q4H PRN #10 tablet 07/12/16 [Rx] Tramadol HCl [Ultram] 50 mg PO TID PRN #20 tab 07/12/16 [Rx] Allergies/Adverse Reactions: Allergies citalopram [From Celexa] Allergy (Verified 02/22/16 11:35) Abdominal Pain haloperidol [From Haldol] Allergy (Verified 02/22/16 11:35) Hallucinating amlodipine [From Norvasc] Adverse Reaction (Verified 02/22/16 11:35) Nausea roflumilast [From Daliresp] Adverse Reaction (Verified 02/22/16 11:35) Difficulty Breathing Date of admission: 07/03/16 23:50 Primary care physician: Jeff Castaenda MD Consults: 07/04/16 13:41 Consult to Central Supply Assistant [CONS] Routine Reason for SW Consult: Pt will not be able to go home and needs IV medication for pain control currently. Pt not safe to go home. 07/05/16 18:40 Consult to Speech Therapy [CONS] Routine Comment: Evaluate, develop and implement POC Reason for Consult: suspect aspiration Call Completed: No Discharging clinician: [employer] Anticipated date of discharge: 07/12/16 - Patient Status Disposition: Transfer SNF Condition: Fair Functional capacity at discharge: uses cane/walker Overall status at discharge: patient is progressing back to baseline - Discharge Instructions Instructions: Sodium Bicarbonate (By mouth) Follow Up With: Tj Ragsdale MD [Partnered Physician] - 07/11/16 8:40 am Jeff Castaneda MD [Primary Care Provider] - 07/13/16 10:40 am Mayito Fletcher DO [Partnered Physician] - 08/19/16 1:55 pm Willie Verduzco MD [Partnered Physician] - 08/11/16 2:00 pm - Diet and Activity Activity: as per physical therapy, wear oxygen at all times Diet: low fat, low cholesterol, low salt diet, other (mechanical soft, honey- thick liquids) Hospital course: Ms. Khalil is a 81 year old female with the above medical problems who was admitted after sustaining a right-sided pelvic fractures and nondisplaced acetabular fracture after sustaining a mechanical fall. Orthopedic surgery was consulted and recommended nonoperative management with weightbearing as tolerated. Physical therapy evaluation was done and recommended placement in extended care facility for continued rehabilitation. While in the hospital, patient was noted to have acute on chronic hypoxic respiratory failure and there was concern for aspiration. She was started on IV antibiotics, blood cultures remain negative. Swallowing evaluation was done and patient is recommended to be on a mechanically altered diet with thin liquids. Her clinical condition gradually improved, oxygen requirements came down to baseline and she is currently doing well. However, she is noted to have waxing and waning mental status, likely delirium related to prolonged hospitalization, elderly age, underlying infection and hypoxemia. Upon my evaluation today, patient is able to engage in conversation, however is noted to be forgetful with mood swings. She is medically stable for discharge to rehabilitation facility after discussing with her daughters, who are in agreement. - Time Spent with Patient Total time spent providing and/or coordinating discharge services: Greater than 30 minutes (50 min) - Constitutional Vitals: Temp Pulse Resp BP Pulse Ox 97.9 F 78 20 128/68 96 07/12/16 11:26 07/12/16 11:26 07/12/16 11:26 07/12/16 11:26 07/12/16 11:26 General appearance: Present: A&O X 3 (delirious, occasionally tearful) - Respiratory Respiratory exam: Present: rales (right basal crackles+). Absent: accessory muscle use, rhonchi, wheezes - Cardiovascular Cardiovascular exam: Present: RRR, +S1, +S2. Absent: diastolic murmur, gallop, rubs, systolic murmur - VTE Documentation of Mechanical Device: Intermittent pneumatic compression device
--- NOTE | 2016-07-12 13:39 | Physician Discharge Referral ---
ExtendedCare Referral Info Transfer To: [facility] Care Provider in Charge: [employer] Provider in Charge after Transfer: PCP Institutional Level of Care: Skilled - Diagnosis (1) Hip fracture, right Priority: Primary Status: Acute (2) Fall Priority: Primary Status: Acute (3) Acute and chronic respiratory failure with hypoxia Priority: Primary Status: Acute (4) Aspiration pneumonia Priority: Primary Status: Acute (5) Acute kidney injury superimposed on CKD Priority: Primary Status: Resolved (6) Hypomagnesemia Priority: Primary Status: Resolved (7) Dementia Priority: Secondary Status: Chronic (8) Hypertension Priority: Secondary Status: Chronic (9) CHF (congestive heart failure) Priority: Secondary Status: Chronic (10) CKD (chronic kidney disease) Priority: Secondary Status: Chronic - Transfer Medications Prescriptions: Amoxicillin/Clavulanate [Augmentin] 500 mg PO BIDWM #6 tablet OxyCODONE Immed Rel [Roxicodone 5 MG] 5 mg PO Q4H PRN #10 tablet PRN Reason: Severe Pain (>7) Tramadol HCl [Ultram] 50 mg PO TID PRN #20 tab PRN Reason: Moderate Pain Home Medications: Budesonide/Formoterol 160/4.5 [Symbicort] 2 puff IH BID 02/20/15 [History] Clopidogrel [Plavix] 75 mg PO DAILY 02/20/15 [History] Furosemide [Lasix] 40 mg PO DAILY 02/20/15 [History] Potassium Chloride 20 meq PO DAILY 02/20/15 [History] Tiotropium [Spiriva] 18 mcg IH DAILY 02/20/15 [History] BuPROPion SR (12 HR) [Wellbutrin SR] 150 mg PO BID 03/25/15 [History] Sertraline [Zoloft] 100 mg PO DAILY 03/25/15 [History] Donepezil [Aricept] 10 mg PO HS 04/03/15 [History] Alendronate Sodium [Fosamax] 70 mg PO MO 07/09/15 [History] Ascorbate Calcium [Vitamin C] 500 mg PO DAILY 07/09/15 [History] Aspirin [Adult Low Dose Aspirin EC] 81 mg PO DAILY 07/09/15 [History] Calcium Carbonate/Vitamin D3 [Calcium 500-Vit D3 400 Tablet] 1 tab PO DAILY 04/13 [History] Ferrous Sulfate 325 mg PO DAILY 07/09/15 [History] Isosorbide MONOnitrate (24 HR) [Imdur] 60 mg PO DAILY 07/09/15 [History] Losartan [Cozaar] 100 mg PO DAILY 07/09/15 [History] Metoprolol XL (24 HR) Succ [Toprol Xl] 25 mg PO DAILY 07/09/15 [History] Simvastatin [Zocor] 40 mg PO QPM 07/09/15 [History] Hydralazine HCl 50 mg PO TID 11/27/15 [History] Cholecalciferol (D-3) [Vitamin D] 1,000 unit PO DAILY 02/22/16 [History] Nitroglycerin [Nitrostat] 0.4 mg SL PRN PRN #30 tab.subl 02/26/16 [Rx] Albuterol Neb [Proventil Neb] 2.5 mg IH Q4HR 07/04/16 [History] Amoxicillin/Clavulanate [Augmentin] 500 mg PO BIDWM #6 tablet 07/12/16 [Rx] LORazepam [Ativan] 1 mg PO HS #10 07/12/16 [Rx] OxyCODONE Immed Rel [Roxicodone 5 MG] 5 mg PO Q4H PRN #10 tablet 07/12/16 [Rx] Tramadol HCl [Ultram] 50 mg PO TID PRN #20 tab 07/12/16 [Rx] Allergies/Adverse Reactions: Allergies citalopram [From Celexa] Allergy (Verified 02/22/16 11:35) Abdominal Pain haloperidol [From Haldol] Allergy (Verified 02/22/16 11:35) Hallucinating amlodipine [From Norvasc] Adverse Reaction (Verified 02/22/16 11:35) Nausea roflumilast [From Daliresp] Adverse Reaction (Verified 02/22/16 11:35) Difficulty Breathing - Respiratory Orders Oxygen / L per min (2L/min) Smoking Cessation: Smoking cessation has been advised. For more information, call the [place] Tobacco Quit Line at 7-862-GOSB-NOW. - Advance Directives Code Status: Full Code - Mobility Orders Ambulate - Rehabiliation Orders Rehab Potential: Fair Rehab Orders: ROM Exercises, Evaluation for Physical Therapy, Evaluation for Occupational Therapy, Evaluation for Speech Therapy - Diet Orders Mechanical Soft (honey-thick liquids), Cardiac CERTIFICATION: I certify that the transfer of the above named patient to an Extended Care Facility is necessary for the continuing treatment of the diagnosis listed. The above information is true and accurate reflection of patient's current condition. Confidential - Redisclosure prohibited without a patient's written consent.
[2016-07-12 15:09] VITALS: BP 147/65
== END 2016-07-12 16:30 | DRG 535 ==
LOC: EMEROO 17:57 → 3BNU 17:57 → SUATTDRO 23:50 → 3NENU 07-05 17:23
PROVIDERS: ADMIT Internal Medicine; ATTEND Internal Medicine

== ENCOUNTER 2016-07-22 23:36 | Inpatient (IN) ==
--- NOTE | 2016-07-22 23:42 | Emergency Department Note ---
Disposition Clinical Impression: Delirium, Urinary tract infection Disposition: Admitted As Inpatient Condition: Fair Time of Disposition: 03:52 Altered Mental Status HPI - General Chief Complaint: ED Shortness of Breath/Dyspnea Stated Complaint: ASHLEIGH/AMS Time Seen by Provider: 07/22/16 23:40 Source: family, EMS Mode of arrival: EMS Limitations: altered mental status Nursing Notes Reviewed: Yes Vital Signs Reviewed: Yes - History of Present Illness HPI Narrative: 81-year-old female with history of dementia and chronic anemia of unclear etiology presents with worsened confusion over her baseline over the last 2-3 days. She appears to be agitated breathing rapidly according to her family, she has not had any abnormal vitals. She was seen today for outpatient blood transfusion with hematology. Family is not sure when her last blood transfusion was. They state that she has had multiple evaluations looking for source of bleeding which have not found anything. She also had bone marrow biopsies which were equivocal. She has not had any fever, vomiting, swelling or rashes. She has had recent hip surgery and is on multiple pain medications. - Related Data Home Medications Medication Instructions Recorded Confirmed Budesonide/Formoterol 160/4.5 2 puff IH BID 02/20/15 07/04/16 [Symbicort] Clopidogrel [Plavix] 75 mg PO DAILY 02/20/15 07/04/16 Furosemide [Lasix] 40 mg PO DAILY 02/20/15 07/04/16 Potassium Chloride 20 meq PO DAILY 02/20/15 07/04/16 Tiotropium [Spiriva] 18 mcg IH DAILY 02/20/15 07/04/16 BuPROPion SR (12 HR) [Wellbutrin 150 mg PO BID 03/25/15 07/04/16 SR] Sertraline [Zoloft] 100 mg PO DAILY 03/25/15 07/04/16 Donepezil [Aricept] 10 mg PO HS 04/03/15 07/04/16 Alendronate Sodium [Fosamax] 70 mg PO MO 07/09/15 07/04/16 Ascorbate Calcium [Vitamin C] 500 mg PO DAILY 07/09/15 07/04/16 Aspirin [Adult Low Dose Aspirin EC] 81 mg PO DAILY 07/09/15 07/04/16 Calcium Carbonate/Vitamin D3 1 tab PO DAILY 07/09/15 07/04/16 [Calcium 500-Vit D3 400 Tablet] Ferrous Sulfate 325 mg PO DAILY 07/09/15 07/04/16 Isosorbide MONOnitrate (24 HR) 60 mg PO DAILY 07/09/15 07/04/16 [Imdur] Losartan [Cozaar] 100 mg PO DAILY 07/09/15 07/04/16 Metoprolol XL (24 HR) Succ [Toprol 25 mg PO DAILY 07/09/15 07/04/16 Xl] Simvastatin [Zocor] 40 mg PO QPM 07/09/15 07/04/16 Hydralazine HCl 50 mg PO TID 11/27/15 07/04/16 Cholecalciferol (D-3) [Vitamin D] 1,000 unit PO DAILY 02/22/16 07/04/16 Albuterol Neb [Proventil Neb] 2.5 mg IH Q4HR 07/04/16 07/04/16 Previous Rx's Medication Instructions Recorded Nitroglycerin [Nitrostat] 0.4 mg SL PRN PRN #30 tab.subl 02/26/16 Amoxicillin/Clavulanate [Augmentin] 500 mg PO BIDWM #6 tablet 07/12/16 LORazepam [Ativan] 1 mg PO HS #10 07/12/16 OxyCODONE Immed Rel [Roxicodone 5 5 mg PO Q4H PRN #10 tablet 07/12/16 MG] Tramadol HCl [Ultram] 50 mg PO TID PRN #20 tab 07/12/16 Allergies Allergy/AdvReac Type Severity Reaction Status Date / Time citalopram [From Celexa] Allergy Abdominal Verified 07/22/16 23:44 Pain haloperidol [From Haldol] Allergy Hallucinati Verified 07/22/16 23:44 ng amlodipine [From Norvasc] AdvReac Nausea Verified 07/22/16 23:44 roflumilast [From Daliresp] AdvReac Difficulty Verified 07/22/16 23:44 Breathing All systems ED: reviewed and negative except as stated. (Per family.) Past Medical History - Past Medical History Attestation: Yes The following information was validated with the patient. Source: old records reviewed Medical history: Reports: arthritis, CHF, COPD, coronary artery disease, dementia, GERD, hyperlipidemia, hypertension, myocardial infarction, osteoporosis, peripheral artery disease, renal disease, other Surgical history: Reports: cholecystectomy, hysterectomy, BHARATHI/BSO, other Psychiatric history: Reports: anxiety, depression - Social History Smoking Status: Former smoker Smokeless Tobacco Status: No Alcohol use: Reports: none Drug use: Reports: none Physical Exam - Head Head exam: atraumatic, normocephalic, normal inspection - Eye Eye exam: Present: normal appearance, PERRL, EOMI - ENT ENT exam: normal exam, normal oropharynx, mucous membranes moist - Neck Neck exam: Present: normal inspection, full ROM, trachea midline - Chest Chest inspection: Present: normal inspection, symmetric chest wall rise - Respiratory Respiratory exam: Clear to auscultation bilaterally without wheezes rales or rhonchi Cardiovascular Cardiovascular exam: Present: regular rate, normal rhythm, normal heart sounds - Abdominal Exam Abdominal exam: Present: soft, Non-Tender. Absent: tenderness, distention, guarding, rebound, rigidity - Extremities Exam Extremities exam: Present: No edema. Positive pedal pulses in all extremities. - Back Exam Back exam: Present: normal inspection, full ROM. Absent: tenderness, CVA tenderness (R), CVA tenderness (L) - Neurological Exam Neurological exam: Present: alert, oriented, CN II-XII intact - Psychiatric Psychiatric exam: Agitated - Skin Skin exam: Present: Warm and pallorous Course - Reevaluation(s) Reevaluation #1: Patient received Geodon for treatment of her agitation with complete resolution of symptoms. Unfortunately, she was not taken over to CT scan she was calm and became agitated again due to blood pressure cuff hurting her arm. She required Ativan administration. She also again appeared to be having some difficulty in breathing with normal vitals. On lung auscultation she had significant upper airway sounds with some lower airway wheezing as well. She received Ativan, duonebs, and BiPAP administration. Time: 02:40 Reevaluation #2: Patient is stable on reassessment. CTA of the chest is negative CT of the head is negative. Patient has had a significant urinary tract infection which is likely causing a considerable amount of heard agitation and delirium. Accepted to Dr. Watson for further management. Admitted on Rocephin for antibiotic coverage. Time: 03:53 Vital Signs Temperature 0 F L 07/22/16 23:37 Pulse Rate 95 07/22/16 23:37 Respiratory Rate 26 07/22/16 23:37 Blood Pressure 165/100 07/22/16 23:37 O2 Sat by Pulse Oximetry 100 07/22/16 23:37 Temperature 99.8 F H 07/23/16 05:03 Pulse Rate 96 07/23/16 04:01 Respiratory Rate 0 07/23/16 05:16 Blood Pressure 0/0 07/23/16 05:16 O2 Sat by Pulse Oximetry 98 07/23/16 04:01 Oxygen Delivery Oxygen Delivery Bipap Altered Mental Status - Lab Data Result diagrams: 07/22/16 23:48 07/22/16 23:48 Lab Results 07/22/16 07/22/16 07/22/16 Range/Units 23:48 23:48 23:48 WBC 13.4 H D (4.3-11.1) K/mcL RBC 3.38 L (3.82-4.97) M/mcL Hgb 10.0 L D (11.5-15.4) g/dL Hct 32.1 L (35.3-44.9) % MCV 95.0 (83.0-100.0) fL MCH 29.6 (28.0-33.3) pg MCHC 31.2 L (31.6-35.5) g/dL RDW 17.6 H (11.5-14.5) % Plt Count 408 H (140-400) K/mcL MPV 9.0 L (9.4-12.4) fL Immature Gran % 0.7 (0-4) % Seg Neutrophils % 83.8 % Lymphocytes % 4.6 % Monocytes % 8.9 % Eosinophils % 1.6 % Basophils % 0.4 % Neutrophils # 11.2 H (1.6-8.9) K/mcL Lymphocytes # 0.6 (0.6-4.6) K/mcL Monocytes # 1.2 (0.0-1.3) K/mcL Eosinophils # 0.2 (0.0-0.6) K/mcL Basophils # 0.1 (0.0-0.2) K/mcL VBG pH (7.32-7.42) pH Units VBG pCO2 (41-51) mmHg VBG pO2 (25-40) mmHg VBG HCO3 (21-27) mEq/L Sodium 144 (136-145) mEq/L Potassium 4.0 (3.5-4.5) mEq/L Chloride 112 H (98-109) mEq/L Carbon Dioxide 21 (19-29) mEq/L BUN 24 H (7-20) mg/dL Creatinine 0.99 (0.57-1.11) mg/dL Est GFR ( Amer) > 60 (> 60) Est GFR (Non-Af Amer) 54 L (> 60) BUN/Creatinine Ratio 24 (6-26) Glucose 114 H (70-99) mg/dL Calculated Osmolality 303 H (280-300) Calcium 8.9 (8.6-10.8) mg/dL Troponin I 0.03 (0-0.03) ng/mL B-Natriuretic Peptide (0-100) pg/mL Urine Color (Yellow) Urine Clarity (Clear) Urine pH (5.0-8.0) pH Units Ur Specific [place] (1.010-1.025) Urine Protein (Neg-Trace) mg/dL Urine Glucose (UA) (Normal) mg/dL Urine Ketones (Negative) mg/dL Urine Blood (Negative) Urine Nitrite (Negative) Urine Bilirubin (Negative) Urine Urobilinogen (Normal) mg/dL Ur Leukocyte Esterase (Negative) Urine Microscopic RBC (0-3) per hpf Urine Microscopic WBC (0-3) per hpf Ur Squamous Epith Cells (None-Few) per lpf Urine Bacteria (None-Few) per hpf Hyaline Casts (None-Few) per lpf Ur Culture Indicated? (NO) 07/22/16 07/22/16 07/23/16 Range/Units 23:48 23:48 02:20 WBC (4.3-11.1) K/mcL RBC (3.82-4.97) M/mcL Hgb (11.5-15.4) g/dL Hct (35.3-44.9) % MCV (83.0-100.0) fL MCH (28.0-33.3) pg MCHC (31.6-35.5) g/dL RDW (11.5-14.5) % Plt Count (140-400) K/mcL MPV (9.4-12.4) fL Immature Gran % (0-4) % Seg Neutrophils % % Lymphocytes % % Monocytes % % Eosinophils % % Basophils % % Neutrophils # (1.6-8.9) K/mcL Lymphocytes # (0.6-4.6) K/mcL Monocytes # (0.0-1.3) K/mcL Eosinophils # (0.0-0.6) K/mcL Basophils # (0.0-0.2) K/mcL VBG pH 7.44 H (7.32-7.42) pH Units VBG pCO2 38 L (41-51) mmHg VBG pO2 50 H (25-40) mmHg VBG HCO3 25.8 (21-27) mEq/L Sodium (136-145) mEq/L Potassium (3.5-4.5) mEq/L Chloride (98-109) mEq/L Carbon Dioxide (19-29) mEq/L BUN (7-20) mg/dL Creatinine (0.57-1.11) mg/dL Est GFR ( Amer) (> 60) Est GFR (Non-Af Amer) (> 60) BUN/Creatinine Ratio (6-26) Glucose (70-99) mg/dL Calculated Osmolality (280-300) Calcium (8.6-10.8) mg/dL Troponin I (0-0.03) ng/mL B-Natriuretic Peptide 472 H (0-100) pg/mL Urine Color Yellow (Yellow) Urine Clarity Cloudy A (Clear) Urine pH 5.5 (5.0-8.0) pH Units Ur Specific [place] 1.013 (1.010-1.025) Urine Protein Negative (Neg-Trace) mg/dL Urine Glucose (UA) Normal (Normal) mg/dL Urine Ketones Negative (Negative) mg/dL Urine Blood Negative (Negative) Urine Nitrite Negative (Negative) Urine Bilirubin Negative (Negative) Urine Urobilinogen Normal (Normal) mg/dL Ur Leukocyte Esterase Moderate H (Negative) Urine Microscopic RBC 0-3 (0-3) per hpf Urine Microscopic WBC 30-50 H (0-3) per hpf Ur Squamous Epith Cells Few (None-Few) per lpf Urine Bacteria Moderate H (None-Few) per hpf Hyaline Casts None Seen (None-Few) per lpf Ur Culture Indicated? YES A (NO) - EKG Data EKG attestation: Yes I reviewed and interpreted this EKG. EKG results narrative: Normal sinus rhythm at 97 with normal axis and intervals. No ST elevation or depression. There is diffuse mild T-wave flattening and exam is limited by motion artifact. No old EKG available. Attestation Statement - Attestation Attestation: For this encounter, I have reviewed the resident, DEGREASER OPERATOR, or PA documentation, treatment plan, and medical decision making; and I have had face to face time with this patient. 81-year-old female brought in by EMS for concerns of altered mental status increasing over the 2-3 days. Family states these symptoms are similar to previous urinary tract infections. Family also states the patient has had increased work of breathing over the past 2-3 days as well. Patient is satting well on room air on initial evaluation however she has some mild to moderate wheezing in the bilateral posterior lung morrison. Patient is currently in a rehabilitation facility for physical rehabilitation from a hip fracture. Patient is unable to provide a history regarding her symptoms. Patient was given treatments with mild mild improvement of her symptoms. Patient was extremely anxious in the emergency department. She was given Geodon which helped the patient to relax in the emergency department and she significantly improved. After the medication wore off the patient became agitated and started to have increased wheezing and work of breathing. Patient was placed on BiPAP and given Ativan to help with her anxiety. Patient had a CTA of her chest which was negative for PE or other evidence of infection. Patient was started on ceftriaxone for a urinary tract infection. Patient was admitted to the floor for further care and is significantly improved after her initial evaluation.
[2016-07-22 23:58] LABS: Basophils # 0.1 K/mcL (0.0-0.2); Basophils % 0.4 %; Eosinophils # 0.2 K/mcL (0.0-0.6); Eosinophils % 1.6 %; Hematocrit 32.1 % (35.3-44.9); Immature Granulocytes % 0.7 % (0-4); Lymphocytes # 0.6 K/mcL (0.6-4.6); Lymphocytes % 4.6 %; Mean Corpuscular HGB Conc 31.2 g/dL (31.6-35.5); Mean Corpuscular Hemoglobin 29.6 pg (28.0-33.3); Monocytes # 1.2 K/mcL (0.0-1.3); Monocytes % 8.9 %; Platelet Count 408 K/mcL (140-400); Red Blood Count 3.38 M/mcL (3.82-4.97); Red Cell Distribution Width 17.6 % (11.5-14.5); Segmented Neutrophils % 83.8 %; VBG HCO3 25.8 mEq/L (21-27); VBG PH 7.44 pH Units (7.32-7.42)
[2016-07-23] LABS: Neutrophils # 11.2 K/mcL (1.6-8.9)
[2016-07-23] MEDS ORDERED: Ziprasidone injection 20 MG/ML VIAL IM ONE ×2 (00:13→03:42)
[2016-07-23 00:18] LABS: BUN/Creatinine Ratio 24 (6-26); Blood Urea Nitrogen 24 mg/dL (7-20); Calcium 8.9 mg/dL (8.6-10.8); Carbon Dioxide 21 mEq/L (19-29); Chloride 112 mEq/L (98-109); Glucose 114 mg/dL (70-99); Osmolality,Calculated 303 (280-300); Sodium 144 mEq/L (136-145); eGFR For African Americans > 60 (> 60); eGFR For Non-African Americans 54 (> 60)
[2016-07-23] MEDS ORDERED: Water for inj. (sterile) 10 ML IV ONE ×2 (00:32→03:55)
[2016-07-23] MEDS ORDERED: Ipratropium/Albuterol Neb 3 ML IH ONE (01:42)
[2016-07-23] MEDS ORDERED: *HR* LORazepam 2 MG/ML VIAL IVP ONE ×2 (01:42→02:02)
[2016-07-23] MEDS ORDERED: Albuterol 2.5 MG/3 ML NEBULIZER IH ONE ×2 (02:11)
[2016-07-23 02:28] LABS: Bilirubin,Urine Negative (Negative); Blood,Urine Negative (Negative); Clarity,Urine Cloudy (Clear); Color,Urine Yellow (Yellow); Glucose,Urine (UA) Normal (Normal); Ketones,Urine Negative (Negative); Leukocyte Esterase,Urine Moderate (Negative); Nitrite,Urine Negative (Negative); PH,Urine 5.5 pH Units (5.0-8.0); Protein,Urine Negative (Neg-Trace); Specific Gravity,Urine 1.013 (1.010-1.025); Urobilinogen,Urine Normal (Normal)
[2016-07-23 02:30] LABS: Bacteria,Urine Moderate per hpf (None-Few); Hyaline Casts,Urine None Seen per lpf (None-Few); RBC,Urine 0-3 per hpf (0-3); Squamous Epithelial Cell,Urine Few per lpf (None-Few); WBC,Urine 30-50 per hpf (0-3)
[2016-07-23] MEDS ORDERED: Naloxone 0.4 MG/ML INJ IVP ONE ×2 (07:37→08:12)
[2016-07-23] MEDS ORDERED: Naloxone 0.4 MG/ML INJ ONE (07:38)
[2016-07-23] MEDS ORDERED: Ondansetron 4 MG/2 ML VIAL IVP PRN (08:02)
[2016-07-23] MEDS ORDERED: Naloxone 0.4 MG/ML INJ IVP PRN (08:02)
[2016-07-23 08:10] LABS: ABG Base Excess -0.1 mEq/L (-2.0 to 3.0); ABG HCO3 23.6 mEQ/L (21-27); ABG Oxygen Saturation 99 % (95-98); ABG PCO2 34 mmHg (35-45); ABG PH 7.45 pH Units (7.32-7.45); ABG PO2 110 mmHg (85-104); ABG TCO2 24.6 mEq/L (20-26)
[2016-07-23] MEDS ORDERED: Nitroglycerin 0.4 MG TAB.SUBL SL PRN (08:10)
[2016-07-23] MEDS ORDERED: traMADol 50 MG TABLET PO PRN (08:10)
[2016-07-23 08:11] LABS: Blood Gas FiO2 40 %
--- NOTE | 2016-07-23 08:29 | Internal Med History&Physical ---
Date of Encounter: 07/23/16 Time of Encounter: 08:23 Assessment and Plan (1) Chronic diastolic (congestive) heart failure Current visit: Yes Status: Acute We will continue with Lasix, monitor fluid status closely. Echocardiogram from previous admission one month ago was reviewed in the medical record shows normal ejection fraction, diastolic dysfunction. (2) Urinary tract infection Current visit: Yes Status: Acute We will treat with IV ceftriaxone. Follow up urine culture and sensitivity. UTI likely contributing to her metabolic encephalopathy. We will discontinue the French catheter and a.m. Qualifiers: Urinary tract infection type: acute cystitis Hematuria presence: without hematuria Qualified Code(s): N30.00 - Acute cystitis without hematuria (3) Anemia Current visit: No Status: Chronic Monitor hemoglobin and hematocrit daily. Qualifiers: Anemia type: other cause Other causes of anemia: other cause, not classified Qualified Code(s): D64.89 - Other specified anemias (4) DVT prophylaxis Current visit: No Status: Acute Heparin subcutaneous. She is at high risk for DVT due to immobility, recent pelvic fracture and history of heart failure. (5) COPD (chronic obstructive pulmonary disease) Current visit: No Status: Chronic The patient received treatment with BiPAP. I have reviewed her initial VBG which show no evidence of hypercarbia. Given severe alteration in mental status I was concerned that she could have developed hypercarbic respiratory failure and CO2 narcosis and therefore I performed an ABG and this reveals normal pH, normal CO2 and elevated oxygen level. At that time the patient was on BiPAP with settings of 12 over 5, 40% FiO2 and respiratory rate of 8, breathing around 20. Given that she does not need that much pressure support I decreased abdominal settings to 10 over 5 and decreased FiO2 to 35% we will continue to monitor her breathing rate closely and continue his oxygen saturation monitoring. If respiratory rates stay above 15 will give her BiPAP breaks. Inhaled DuoNeb. No evidence of exacerbation. I will hold systemic steroids. Continue with inhaled steroids. Qualifiers: COPD type: unspecified COPD Qualified Code(s): J44.9 - Chronic obstructive pulmonary disease, unspecified (6) Dementia Current visit: No Status: Chronic One-to-one continuous direct observation. Will use Geodon sparingly for agitation. Fall precautions. Qualifiers: Dementia type: Alzheimer's disease Alzheimer's disease onset: late-onset Dementia behavioral disturbance: without behavioral disturbance Qualified Code (s): G30.1 - Alzheimer's disease with late onset; F02.80 - Dementia in other diseases classified elsewhere without behavioral disturbance (7) Osteoarthritis involving multiple joints on both sides of body Current visit: No Status: Chronic (8) Acute metabolic encephalopathy Current visit: Yes Status: Acute The patient has acute severe metabolic encephalopathy, she is only responsive to painful stimuli. I think this is multi factorial likely related to dementia , delirium secondary to medical disease particularly her UTI and use of multiple sedative medication including opiates, benzodiazepines and neuroleptics. She has acute neurological impairment which could progress to respiratory failure requiring intubation and mechanical ventilation. There is high probability of significant clinical decompensation with potential impairment of organ function including nervous and respiratory systems. I have performed 55 minutes of critical care time which involved decision making of high complexity to assess, manipulate, and support vital organ system, in order to prevent further life threatening deterioration of the patient's condition. The time involved in the performance of any procedures was not counted toward critical care time and will be billed separately. Critical care time was spent examining the patient multiple times, reviewing EKGs, imaging studies and laboratory data, managing noninvasive positive pressure ventilation, ordering medications and reevaluating for clinical response to ordered medications and noninvasive positive pressure ventilation. Due to a history of treatment with opiates and her pupils being pinpoint and her nonresponsiveness to voice or tactile stimuli I considered opiate toxicity and I administered 2 doses of Narcan 0.8 mg. The patient had minimal response, transiently becoming agitated however her mental status does not improve significantly. Given that she received 3 mg of Ativan in the emergency department I also considered benzodiazepine overdose and therefore I administered 0.2 mg of flumazenil which had a marginal effect. The patient was transiently more interactive and slightly agitated but not following commands. At this point will monitor her respiratory status closely and will continue to use BiPAP and monitor her mental status and oxygen saturation. Will be reused reversal agents as needed. Internal Medicine - H&P: HPI Chief complaint: Altered mental status Admitted From: Emergency Dept Plans for Post Hospital Care: Transfer Halfway Facility History of present illness: Ms. Khalil is a 81 year old female with multiple medical comorbidities brought from detention for confusion which is worse from her baseline. History limited by AMS/ nonverbal state. She was recently admitted and treated non- operatively for a pelvic fracture. During her admission the course was complicated by aspiration PNA treated with antibiotics. She was discharged to SNF on multiple opioids for pain control. This morning she was agitated in the ED and was given 10mg of geodon and 3mg of Ativan iv. Currently at bedside she is responsive to painful stimuli but does not open eyes, does not follow commands and is non-verbal. ROS, and family history could not be obtained due to altered mental status Past Med Surg Social Fam HX - Past Medical History Medical history: arthritis, CHF, COPD, coronary artery disease, dementia, GERD, hyperlipidemia, hypertension, myocardial infarction, osteoporosis, peripheral artery disease, renal disease, other Psychiatric history: anxiety, depression - Past Surgical History Surgical History: cholecystectomy, hysterectomy, BHARATHI/BSO, other - Social History Smoking Status: Former smoker Smokeless Tobacco Status: No Alcohol use: none Drug use: none - Family History Father Living Status: Hx Family Cardiac Disorders: Yes Hx Family Cancer: Yes (RCC) Mother Living Status: Hx Family Cardiac Disorders: Yes Hx Family Cancer: Yes (bladder cancer) Internal Medicine - H&P: Meds Budesonide/Formoterol 160/4.5 [Symbicort] 2 puff IH BID 02/20/15 [History] Clopidogrel [Plavix] 75 mg PO DAILY 02/20/15 [History] Furosemide [Lasix] 40 mg PO DAILY 02/20/15 [History] Tiotropium [Spiriva] 18 mcg IH DAILY 02/20/15 [History] BuPROPion SR (12 HR) [Wellbutrin SR] 150 mg PO BID 03/25/15 [History] Sertraline [Zoloft] 100 mg PO DAILY 03/25/15 [History] Donepezil [Aricept] 10 mg PO HS 04/03/15 [History] Alendronate Sodium [Fosamax] 70 mg PO MO 07/09/15 [History] Ascorbate Calcium [Vitamin C] 500 mg PO DAILY 07/09/15 [History] Aspirin [Adult Low Dose Aspirin EC] 81 mg PO DAILY 07/09/15 [History] Calcium Carbonate/Vitamin D3 [Calcium 500-Vit D3 400 Tablet] 1 tab PO DAILY 04/13 [History] Ferrous Sulfate 325 mg PO DAILY 07/09/15 [History] Isosorbide MONOnitrate (24 HR) [Imdur] 60 mg PO DAILY 07/09/15 [History] Losartan [Cozaar] 100 mg PO DAILY 07/09/15 [History] Metoprolol XL (24 HR) Succ [Toprol Xl] 25 mg PO DAILY 07/09/15 [History] Simvastatin [Zocor] 20 mg PO QPM 07/09/15 [History] Hydralazine HCl 50 mg PO TID 11/27/15 [History] Cholecalciferol (D-3) [Vitamin D] 1,000 unit PO DAILY 02/22/16 [History] Nitroglycerin [Nitrostat] 0.4 mg SL PRN PRN #30 tab.subl 02/26/16 [Rx] Albuterol Neb [Proventil Neb] 2.5 mg IH Q4HR 07/04/16 [History] LORazepam [Ativan] 1 mg PO HS #10 07/12/16 [Rx] Tramadol HCl [Ultram] 50 mg PO TID PRN #20 tab 07/12/16 [Rx] Hydrocodon-Acetamin 7.5-325/15 1 tab PO Q4H PRN 07/23/16 [History] Uoytl-Xzypyci-Caynzhio Tablet 1 each PO DAILY 07/23/16 [History] Gary 7.5-325 mg 1 tab PO Q6H 07/23/16 [History] Allergies citalopram [From Celexa] Allergy (Verified 07/22/16 23:44) Abdominal Pain haloperidol [From Haldol] Allergy (Verified 07/22/16 23:44) Hallucinating amlodipine [From Norvasc] Adverse Reaction (Verified 07/22/16 23:44) Nausea roflumilast [From Daliresp] Adverse Reaction (Verified 07/22/16 23:44) Difficulty Breathing All Systems PM: A 10-system review of systems was performed and is negative for pertinent findings except as documented above in the HPI. - Constitutional Vitals: Temp Pulse Resp BP Pulse Ox 98.1 F 96 25 147/75 100 07/23/16 07:20 07/23/16 07:20 07/23/16 07:20 07/23/16 07:20 07/23/16 07:20 Exam: altered, nonverbal, responsive to pain, NAD, moderately agitated at times swinging both arms, on BiPAP - Head Head exam: Present: atraumatic, normocephalic - Eye Eye exam: Present: conjuntiva pink, sclera anicteric Additional comments: pupils 2mm in diameter, round, sluggishly responsive to light, equal - Neck Neck exam general surgery: Present: supple, trachea midline. Absent: lymphadenopathy - Respiratory Respiratory exam: Present: wheezes. Absent: accessory muscle use, rales, rhonchi - Cardiovascular Cardiovascular exam: Present: RRR, +S1, +S2. Absent: diastolic murmur, gallop, rubs, systolic murmur - GI/Abdominal GI/Abdominal exam: Present: diminished bowel sounds, soft, no peritoneal signs. Absent: distended, tenderness - Extremities Exam Extremities exam: Present: warm, radial pulses palpable and symetrical. Absent : calf tenderness, cyanotic, pedal edema - Skin Skin exam: Present: dry, intact Internal Med - H&P Results - Labs CBC & Chem 7: 07/22/16 23:48 07/22/16 23:48 - ABG Interpretation Interpretation: ABG interpreted by tn ABG results: 07/23/16 07:55 ABG pH 7.45 ABG pCO2 34 L ABG pO2 110 H ABG HCO3 23.6 ABG Total CO2 24.6 ABG O2 Saturation 99 H ABG Base Excess -0.1 Interpretation: normal - Impressions ITS Impressions Chest X-Ray 07/23/16 23:40 IMPRESSION: Improved aeration of right lung base. D/ / Price Dockery MD / Price Dockery MD Interpreting Provider: Price Dockery MD Head CT 07/23/16 23:40 IMPRESSION: No acute intracranial abnormality. D/ / Brenton Gray MD / Brenton Gray MD Interpreting Provider: Brenton Gray MD Chest CTA 07/23/16 23:43 IMPRESSION: 1. No acute pulmonary emboli, aortic dissection or aneurysm 2. 1.4 cm lobulated ill defined nodule at the left apex which is not significantly changed in appearance compared to the 06/14/2016 study. 3. Patchy areas of ground-glass opacity in the lower aspects of the lungs as detailed, not significantly changed compared to prior study. The largest abnormality is approximately 1.6 cm in the right upper lobe. These findings may represent metastatic disease versus inflammatory or infectious etiologies. D/ / Brenton Gray MD / Brenton Gray MD Interpreting Provider: Brenton Gray MD per my review - normal heart size, no lobar infiltrate, no effusion or pneumothorax
[2016-07-23] MEDS ORDERED: Aspirin Enteric Coated 81 MG Tablet PO SCH (09:00)
[2016-07-23] MEDS ORDERED: Metoprolol XL (24 HR) Succ 25 MG TAB.ER.24H PO SCH (09:00)
[2016-07-23] MEDS: Ipratropium/Albuterol Neb 3 ML IH SCH ×3 (10:05→21:46)
[2016-07-23] MEDS: Budesonide/Formoterol 160/4.5 MDI IH SCH ×2 (10:05→21:46)
[2016-07-23] MEDS: BuPROPion SR (12 HR) 150 MG TABLET PO SCH ×2 (12:15→20:18)
[2016-07-23] MEDS: Furosemide 40 MG TABLET PO SCH (12:15)
[2016-07-23] MEDS: Isosorbide MONOnitrate (24 HR) 60 MG TAB.ER.24H PO SCH (12:15)
[2016-07-23] MEDS ORDERED: *HR* Heparin 5,000 UNIT/ML VIAL IVP PRN (13:07)
[2016-07-23] MEDS ORDERED: Nitroglycerin 1 INCH/GM PACKET TP ONE (13:07)
[2016-07-23] MEDS ORDERED: *HR* Morphine 2 MG/ML SYRINGE IVP PRN (13:07)
[2016-07-23] MEDS ORDERED: *HR* Heparin 5,000 UNIT/ML VIAL IVP ONE (13:07)
[2016-07-23] MEDS ORDERED: *HR* Morphine 2 MG/ML SYRINGE IVP ONE (13:27)
[2016-07-23 14:33] LABS: Hematocrit 31.9 % (35.3-44.9); Hemoglobin 9.9 g/dL (11.5-15.4); Mean Corpuscular Hemoglobin 29.6 pg (28.0-33.3); Mean Corpuscular Volume 95.2 fL (83.0-100.0); Mean Platelet Volume 9.2 fL (9.4-12.4); Platelet Count 367 K/mcL (140-400); Red Blood Count 3.35 M/mcL (3.82-4.97); Red Cell Distribution Width 17.7 % (11.5-14.5)
[2016-07-23 14:39] LABS: INR 1.3; Prothrombin Time 14.3 Seconds (9.4-12.1)
[2016-07-23 14:41] LABS: Activated Partial Thrombo Time 26.5 Seconds (26.0-36.0)
[2016-07-23] MEDS: Heparin 25,000 UNIT/500 ML D5W 25,000 UNIT/500 ML MLS IVC SCH (15:05)
--- NOTE | 2016-07-23 15:42 | Event Note ---
Date of Encounter: 07/23/16 Time of Encounter: 11:00 Troponin was elevated at 0.56 from normal value earlier this morning. I evaluated the patient at bedside. She currently complains of midsternal chest pain. On exam she is in distress due to pain and agitated. She is awake and answers simple questions. Heart is tachycardic regular S1 and S2. Lungs are with bilateral wheezes and rhonchi. Plan: I repeated an EKG which shows no significant change from the EKG done this morning. There is normal sinus rhythm. Q waves in V1 and V2 and nonspecific ST changes. I will start IV heparin drip for non-ST elevation CA given the patient's chest pain and elevated troponin with nonspecific EKG changes. I will provide morphine and nitroglycerin for chest pain. We will start treatment with rectal aspirin. Continue with statin. Stop oral metoprolol succinate and start IV metoprolol. I have discussed the case with cardiology who agrees with the plan. We will obtain an echocardiogram will trend troponin and repeat EKG. The patient remains in a critical condition and there is high probability of precipitous and significant clinical decompensation with potential impairment of organ function including cardiovascular system and nervous system. I have performed an additional 45 minutes of critical care time which involved decision making of high complexity to assess, manipulate, and support vital organ system, in order to prevent further life threatening deterioration of the patient's condition. The time involved in the performance of any procedures was not counted toward critical care time and will be billed separately. Critical care time was spent evaluating the patient, r ordering an reviewing eviewing EKGs, telemetry tracing, imaging studies and laboratory data, discussing the case with consultants, ordering medications and reevaluating for clinical response to ordered medications.
[2016-07-23] MEDS: *HR* Metoprolol 5 MG/5 ML VIAL IVP SCH ×2 (16:04→16:51)
[2016-07-23] MEDS: D5% in 0.45% NACL 1,000 ML IVC SCH (16:06)
[2016-07-23] MEDS ORDERED: *HR* Heparin 5,000 UNIT/ML VIAL SQ SCH (18:00)
[2016-07-23] MEDS: *HR* LORazepam 1 MG TABLET PO SCH (20:18)
[2016-07-23] MEDS: *HR* HYDROcodone/Acet 7.5/325 mg TABLET PO PRN (23:23)
[2016-07-24] MEDS ORDERED: diazePAM 2 MG TABLET PO ONE (01:09)
[2016-07-24] MEDS: *HR* Metoprolol 5 MG/5 ML VIAL IVP SCH ×3 (01:16→12:49)
[2016-07-24] MEDS: *HR* Morphine 2 MG/ML SYRINGE IVP PRN ×3 (03:16→10:46)
[2016-07-24] MEDS: Ipratropium/Albuterol Neb 3 ML IH SCH ×4 (04:49→21:11)
[2016-07-24 07:22] LABS: Basophils % 0.3 %; Eosinophils # 0.2 K/mcL (0.0-0.6); Eosinophils % 1.8 %; Hematocrit 29.7 % (35.3-44.9); Immature Granulocytes % 0.5 % (0-4); Immature Platelets 2.5 % (1.1-6.1); Lymphocytes # 0.6 K/mcL (0.6-4.6); Lymphocytes % 6.6 %; Mean Corpuscular HGB Conc 30.3 g/dL (31.6-35.5); Mean Corpuscular Hemoglobin 29.3 pg (28.0-33.3); Mean Corpuscular Volume 96.7 fL (83.0-100.0); Mean Platelet Volume 9.6 fL (9.4-12.4); Monocytes # 0.9 K/mcL (0.0-1.3); Monocytes % 10.6 %; Platelet Count 331 K/mcL (140-400); Red Blood Count 3.07 M/mcL (3.82-4.97); Red Cell Distribution Width 17.3 % (11.5-14.5); Segmented Neutrophils % 80.2 %
[2016-07-24 07:33] LABS: BUN/Creatinine Ratio 23 (6-26); Blood Urea Nitrogen 19 mg/dL (7-20); Calcium 8.3 mg/dL (8.6-10.8); Carbon Dioxide 23 mEq/L (19-29); Chloride 112 mEq/L (98-109); Glucose 116 mg/dL (70-99); Magnesium 1.7 mg/dL (1.6-2.6); Osmolality,Calculated 299 (280-300); Potassium 2.9 mEq/L (3.5-4.5); Sodium 143 mEq/L (136-145); eGFR For African Americans > 60 (> 60); eGFR For Non-African Americans > 60 (> 60)
[2016-07-24] MEDS ORDERED: Potassium Chloride 40 MEQ, Lidocaine 1% 2 ML in D5% in Water 500 ML IVPB STA (08:04)
[2016-07-24] MEDS: *HR* Heparin 5,000 UNIT/ML VIAL IVP PRN ×2 (08:37→16:14)
[2016-07-24] MEDS: Budesonide/Formoterol 160/4.5 MDI IH SCH ×2 (10:12→21:11)
[2016-07-24] MEDS: BuPROPion SR (12 HR) 150 MG TABLET PO SCH ×2 (10:15→21:30)
[2016-07-24] MEDS: Furosemide 40 MG TABLET PO SCH (10:15)
[2016-07-24] MEDS: Isosorbide MONOnitrate (24 HR) 60 MG TAB.ER.24H PO SCH (10:15)
--- NOTE | 2016-07-24 10:23 | Cardiology Consult Note ---
Date of Encounter: 07/24/16 Time of Encounter: 10:00 Assessment and Plan Discussion w patient/family: The assessment and plan as outlined above was discussed with the patient and/or family members who expressed understanding and agreement. All questions were answered. Thank you for involving us in the care of your patient. Please call with any questions. Elevated Trop EKG reviewed by me shows non specific ST T changes Planl In light of mental status and lack of symptoms would treat conservatively ASA Statin would d/c nitro check ECHO no indications for cath at present Thanks History of Present Illness History of present illness: Ms. Khalil is a 81 year old female Ms. Khalil is a 81 year old female with multiple medical comorbidities brought from residential for confusion which is worse from her baseline. History limited by AMS/ nonverbal state. She was recently admitted and treated non-operatively for a pelvic fracture. During her admission the course was complicated by aspiration PNA treated with antibiotics. She was discharged to SNF on multiple opioids for pain control. This morning she was agitated in the ED and was given 10mg of geodon and 3mg of Ativan iv History is limited , much of it taken from chart . Pt at present , denies any cp ,sob , pnd Past Med Surg Social Fam HX - Past Medical History Medical history: arthritis, CHF, COPD, coronary artery disease, dementia, GERD, hyperlipidemia, hypertension, myocardial infarction, osteoporosis, peripheral artery disease, renal disease, other Psychiatric history: anxiety, depression - Past Surgical History Surgical History: cholecystectomy, hysterectomy, BHARATHI/BSO, other - Social History Smoking Status: Former smoker Smokeless Tobacco Status: No Alcohol use: none Drug use: none - Family History Father Living Status: Hx Family Cardiac Disorders: Yes Hx Family Cancer: Yes (RCC) Mother Living Status: Hx Family Cardiac Disorders: Yes Hx Family Cancer: Yes (bladder cancer) Medications and Allergies Budesonide/Formoterol 160/4.5 [Symbicort] 2 puff IH BID 02/20/15 [History] Clopidogrel [Plavix] 75 mg PO DAILY 02/20/15 [History] Furosemide [Lasix] 40 mg PO DAILY 02/20/15 [History] Tiotropium [Spiriva] 18 mcg IH DAILY 02/20/15 [History] BuPROPion SR (12 HR) [Wellbutrin SR] 150 mg PO BID 10/28/15 [History] Sertraline [Zoloft] 100 mg PO DAILY 03/25/15 [History] Donepezil [Aricept] 10 mg PO HS 04/03/15 [History] Alendronate Sodium [Fosamax] 70 mg PO MO 07/09/15 [History] Ascorbate Calcium [Vitamin C] 500 mg PO DAILY 07/09/15 [History] Aspirin [Adult Low Dose Aspirin EC] 81 mg PO DAILY 07/09/15 [History] Calcium Carbonate/Vitamin D3 [Calcium 500-Vit D3 400 Tablet] 1 tab PO DAILY 04/13 [History] Ferrous Sulfate 325 mg PO DAILY 07/09/15 [History] Isosorbide MONOnitrate (24 HR) [Imdur] 60 mg PO DAILY 07/09/15 [History] Losartan [Cozaar] 100 mg PO DAILY 07/09/15 [History] Metoprolol XL (24 HR) Succ [Toprol Xl] 25 mg PO DAILY 07/09/15 [History] Simvastatin [Zocor] 20 mg PO QPM 07/09/15 [History] Hydralazine HCl 50 mg PO TID 11/27/15 [History] Cholecalciferol (D-3) [Vitamin D] 1,000 unit PO DAILY 02/22/16 [History] Nitroglycerin [Nitrostat] 0.4 mg SL PRN PRN #30 tab.subl 02/26/16 [Rx] Albuterol Neb [Proventil Neb] 2.5 mg IH Q4HR 07/04/16 [History] LORazepam [Ativan] 1 mg PO HS #10 07/12/16 [Rx] Tramadol HCl [Ultram] 50 mg PO TID PRN #20 tab 07/12/16 [Rx] HYDROcodone/Acet 7.5/325 mg [[place] 7.5-325 mg] 1 tab PO Q4H PRN 07/23/16 [ History] LORazepam [Ativan] 0.5 mg PO DAILY 07/23/16 [History] Multivitamin [Multi-Day Vitamins] 1 tab PO DAILY 07/23/16 [History] Potassium Chloride [Potassium Chloride] 20 meq PO BID 07/23/16 [History] Allergies citalopram [From Celexa] Allergy (Verified 07/22/16 23:44) Abdominal Pain haloperidol [From Haldol] Allergy (Verified 07/22/16 23:44) Hallucinating amlodipine [From Norvasc] Adverse Reaction (Verified 07/22/16 23:44) Nausea roflumilast [From Daliresp] Adverse Reaction (Verified 07/22/16 23:44) Difficulty Breathing All Systems Review: A 10-system review of systems was performed and is negative for pertinent findings except as documented above in the HPI. Physical Examination Vital Signs, Last 4 Hours Temp Pulse Resp BP Pulse Ox 07/24/16 08:06 98.0 F 90 22 139/74 98 General: Conversant, No Apparent Distress, Other (confused , not able to recall what happened/ why she is here . ) Results 07/24/16 06:30 07/24/16 06:30 Lab Results 07/23/16 07/23/16 07/23/16 09:16 14:26 14:26 WBC 11.0 Hgb 9.9 L Hct 31.9 L Plt Count 367 INR APTT Sodium Potassium Chloride Carbon Dioxide BUN Creatinine Glucose Calcium Magnesium Troponin I 0.56 H* 0.41 H* 07/23/16 07/23/16 07/24/16 14:26 21:37 06:30 WBC 8.7 Hgb 9.0 L Hct 29.7 L Plt Count 331 INR 1.3 APTT 26.5 36.3 H Sodium Potassium Chloride Carbon Dioxide BUN Creatinine Glucose Calcium Magnesium Troponin I 07/24/16 07/24/16 06:30 06:30 WBC Hgb Hct Plt Count INR APTT 49.5 H Sodium 143 Potassium 2.9 L D Chloride 112 H Carbon Dioxide 23 BUN 19 Creatinine 0.82 Glucose 116 H Calcium 8.3 L Magnesium 1.7 Troponin I Consult Discharge Plan - Plan Referrals: Jeff Castaneda MD [Primary Care Provider] -
[2016-07-24] MEDS: *HR* HYDROcodone/Acet 7.5/325 mg TABLET PO PRN ×3 (12:31→21:48)
[2016-07-24] MEDS: Heparin 25,000 UNIT/500 ML D5W 25,000 UNIT/500 ML MLS IVC SCH (16:13)
[2016-07-24] MEDS: D5% in 0.45% NACL 1,000 ML IVC SCH (16:22)
--- NOTE | 2016-07-24 16:52 | Internal Med Progress Note ---
Date of Encounter: 07/24/16 Time of Encounter: 16:00 - Assessment and plan (1) Acute metabolic encephalopathy Current Visit: Yes Status: Acute (2) NSTEMI (non-ST elevated myocardial infarction) Current Visit: No Status: Acute Assessment and plan: Troponin peaked at 0.56. EKG showed no acute ischemic changes. Cardiology consulted. Continue medical management. Patient not candidate for any intervention given comorbidities. Continue heparin drip for 48 hours. Aspirin. Plavix. Statins. Imdur. metoprolol. 07/04/16: Echocardiogram LVEF 55%, moderate diastolic dysfunction of the LV. 01/2016: Heart catheterization revealed occluded prox RCA with mature left-to- right collaterals filling the PDA. Intermediate 50-60% mid LAD stenosis. Mildly to mildly elevated LVEDP. (3) Urinary tract infection Current Visit: Yes Status: Acute Assessment and plan: GNR UTI. CEftriaxone. f/u I&S of urine culture. Qualifiers: Urinary tract infection type: acute cystitis Hematuria presence: without hematuria Qualified Code(s): N30.00 - Acute cystitis without hematuria (4) Hypokalemia Current Visit: Yes Status: Acute Assessment and plan: replete (5) CAD (coronary artery disease) Current Visit: No Status: Chronic Qualifiers: Coronary Disease-Associated Artery/Lesion type: [place] artery [place] vs. transplanted heart: [place] heart Associated angina: angina presence unspecified Qualified Code(s): I25.10 - Atherosclerotic heart disease of [place] coronary artery without angina pectoris (6) Chronic diastolic (congestive) heart failure Current Visit: Yes Status: Acute Assessment and plan: compensated. Continue home dose Lasix. 07/04: Echocardiogram LVEF 55%, moderate diastolic dysfunction of the LV. (7) COPD (chronic obstructive pulmonary disease) Current Visit: No Status: Chronic Assessment and plan: Duonebs q6hr. Symbicort. Qualifiers: COPD type: unspecified COPD Qualified Code(s): J44.9 - Chronic obstructive pulmonary disease, unspecified (8) Dementia Current Visit: No Status: Chronic Qualifiers: Dementia type: Alzheimer's disease Alzheimer's disease onset: late-onset Dementia behavioral disturbance: without behavioral disturbance Qualified Code (s): G30.1 - Alzheimer's disease with late onset; F02.80 - Dementia in other diseases classified elsewhere without behavioral disturbance (9) Hypertension Current Visit: No Status: Chronic Assessment and plan: Adequate BP. hold losartan. Continue Imdur, metoprolol, furosemide. Qualifiers: Hypertension type: essential hypertension Qualified Code(s): I10 - Essential (primary) hypertension (10) Abnormal CT scan, chest Current Visit: Yes Status: Acute Assessment and plan: CT of the chest findings reveal a 1.4 cm lobulated nodule in the left apex and several areas of groundglass opacity in both lungs. Follow-up in the outpatient pulmonology clinic. - Subjective Interval history: patient has mild dementia per daughter. This is not her baseline, she is very functional at home and has mild short term memory deficit. Patient is confused but has no complaints. - Constitutional Vitals: Temp Pulse Resp BP Pulse Ox 98.1 F 88 18 110/58 99 07/24/16 15:52 07/24/16 15:52 07/24/16 15:52 07/24/16 15:52 07/24/16 15:52 General appearance: Present: cooperative, A&O X 1, morbidly obese, pleasant, no acute distress, answers questions appropriately - Eye Eye exam: Present: PERRL, sclera anicteric - Neck Neck exam general surgery: Present: supple, trachea midline. Absent: lymphadenopathy - Respiratory Respiratory exam: Present: CTAB. Absent: respiratory distress, wheezes - Cardiovascular Cardiovascular exam: Present: RRR - GI/Abdominal GI/Abdominal exam: Present: normal bowel sounds, soft. Absent: distended, tenderness - Extremities Exam Extremities exam: Absent: pedal edema - Neurological Exam Neurological exam: Present: alert, oriented X3. Absent: facial droop, speech deficit - Skin Skin exam: Absent: rash Internal Medicine: Result - Labs CBC & Chem 7: 07/24/16 06:30 07/24/16 06:30 Labs: Short CBC 07/24/16 Range/Units 06:30 WBC 8.7 (4.3-11.1) K/mcL Hgb 9.0 L (11.5-15.4) g/dL Hct 29.7 L (35.3-44.9) % Plt Count 331 (140-400) K/mcL Neutrophils # 7.0 (1.6-8.9) K/mcL BMP 07/24/16 06:30 Sodium 143 Potassium 2.9 L D Chloride 112 H Carbon Dioxide 23 BUN 19 Creatinine 0.82 Glucose 116 H Calcium 8.3 L - ABG Interpretation ABG results: ABG ABG pH 7.45 pH Units (7.32-7.45) 07/23/16 07:55 ABG pCO2 34 mmHg (35-45) L 07/23/16 07:55 ABG pO2 110 mmHg (85-104) H 07/23/16 07:55 ABG O2 Saturation 99 % (95-98) H 07/23/16 07:55 PT/INR, D-dimer PT 14.3 Seconds (9.4-12.1) H 07/23/16 14:26 Consult Discharge Plan - Plan Referrals: Jeff Castaneda MD [Primary Care Provider] -
[2016-07-24] MEDS: *HR* LORazepam 1 MG TABLET PO SCH (21:30)
[2016-07-25] MEDS: *HR* Morphine 2 MG/ML SYRINGE IVP PRN ×2 (01:31→05:10)
[2016-07-25] MEDS: Ipratropium/Albuterol Neb 3 ML IH SCH ×4 (04:05→20:07)
--- NOTE | 2016-07-25 06:32 | ECHO - Doppler Report ---
Echocardiogram Name: Mayra Khalil Date of Study: 07/24/2016 Date: 1935 Ht: 68.0 in Medical Record#: [id number] Age: 81 Wt: 170.0 lb Gender: Female BSA: 1.91 Order #: [id number] Location: [facility] Room #: 2A45 Reading Physician: Giorgi Pimentel MD, [facility] [employer] Supervisor: Sejal Adams RVT Ordering Physician: Sea Yoo MD Primary Physician: Jeff Castaneda MD Indications: NSTEMI Impressions: LVEF 40-45%, systolic CHF consistent with ischemic cardiomyopathy and coronary artery disease Mild segmental left ventricular systolic dysfunction. No pulmonary hypertension. Moderately dilated left atrium. Moderately dilated right atrium. No significant valvular dysfunction. Left Ventricular Wall Motion: Rest Echo Findings The apical anterior, mid anterior, basal anterior and mid anterior septal [place] were hypokinetic. All other wall segments showed normal motion. Findings: Study Quality * Technically adequate exam. Right Ventricle * Normal right ventricular structure and function. Interatrial Septum * No evidence of PFO by color Doppler. Aorta * Normally sized aortic root. Pericardium * The pericardium appears normal. Mitral Valve * No mitral stenosis. * Mildly calcified mitral valve leaflets. * Mild mitral regurgitation. Tricuspid Valve * No tricuspid stenosis. * Trace tricuspid regurgitation. * Estimated RVSP is 14 mmHg. * Estimated RA pressure is 3-5 mmHg. * No pulmonary hypertension. Pulmonic Valve * No pulmonic stenosis. * Trace pulmonic regurgitation. Left Ventricle * Diastolic dysfunction, NOS * LVEF 40-45%. * Mild segmental left ventricular systolic dysfunction. Aortic Valve * Normal aortic valve structure. * Mild aortic regurgitation. * No aortic stenosis. Left Atrium * Moderately dilated left atrium. Right Atrium * Moderately dilated right atrium. IVC * Normal IVC dimensions and inspiratory collapse. ECG Findings * Sinus rhythm with BBB. History Hypertension Hypercholesteremia Years 62 Packs 0.5 Family History of CAD History of CAD/PTCA Myocardial Infarction 07/04/2016 a Previous Echo was performed. Measurements: BP: 158/ 67 2D Normal Values RVIDd: 1.46 cm <2.7 cm IVSd: 1.12 cm 0.6 - 1.0 cm LVIDd: 5.16 cm 3.7 - 5.6 cm LVPWd: 1.17 cm 0.6 - 1.1 cm LVIDs: 3.99 cm 1.5 - 3.6 cm AO: 2.40 cm < 4.0 cm LA: 4.70 cm 2.0 - 4.0cm %FS: 22.70 cm >25 % LA volume: 99 Mitral Valve Peak E:1.12 m/sec Peak E' Lat Josue:8.45 cm/s Peak E' Med Josue:5.1 cm/s E/E' Lat Ratio:13.3 E/E' Med Ratio:22 Aortic Valve AI pressure Half-time: 405.00 msec Tricuspid Valve TV Regurg Peak Grad: 14.00mmHg TV Regurg Peak Josue: 1.86m/sec Updated by Giorgi Pimentel MD, FACC on 07/25/2016 6:22:35 AM electronically signed on 07/25/2016 6:26:09 AM with status of Final Wall Motion Maher: 1=Normal, 2=Hypokinesis, 3=Akinesis, 4=Dyskinesis, 5=Aneurysmal, 6=Hyperkinetic, X=Not Visualized (Blank)=Missing
[2016-07-25 06:35] LABS: Basophils % 0.4 %; Eosinophils # 0.2 K/mcL (0.0-0.6); Eosinophils % 2.8 %; Hematocrit 28.1 % (35.3-44.9); Hemoglobin 8.6 g/dL (11.5-15.4); Immature Granulocytes % 0.6 % (0-4); Lymphocytes # 0.6 K/mcL (0.6-4.6); Lymphocytes % 8.1 %; Mean Corpuscular HGB Conc 30.6 g/dL (31.6-35.5); Mean Corpuscular Hemoglobin 30.1 pg (28.0-33.3); Mean Corpuscular Volume 98.3 fL (83.0-100.0); Mean Platelet Volume 9.9 fL (9.4-12.4); Monocytes # 0.8 K/mcL (0.0-1.3); Monocytes % 10.5 %; Neutrophils # 5.6 K/mcL (1.6-8.9); Platelet Count 301 K/mcL (140-400); Red Blood Count 2.86 M/mcL (3.82-4.97); Red Cell Distribution Width 16.8 % (11.5-14.5); Segmented Neutrophils % 77.6 %
[2016-07-25 06:45] LABS: BUN/Creatinine Ratio 19 (6-26); Blood Urea Nitrogen 15 mg/dL (7-20); Calcium 8.1 mg/dL (8.6-10.8); Carbon Dioxide 20 mEq/L (19-29); Chloride 110 mEq/L (98-109); Glucose 95 mg/dL (70-99); Magnesium 1.5 mg/dL (1.6-2.6); Osmolality,Calculated 291 (280-300); Potassium 3.2 mEq/L (3.5-4.5); Sodium 140 mEq/L (136-145); eGFR For African Americans > 60 (> 60); eGFR For Non-African Americans > 60 (> 60)
--- NOTE | 2016-07-25 07:04 | Electrocardiograph Report ---
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
[2016-07-25] MEDS ORDERED: Magnesium Sulfate 1 GM in D5% in Water 100 ML IVPB STA (08:05)
--- NOTE | 2016-07-25 08:57 | Cardiology Progress Note ---
Date of Encounter: 07/25/16 Time of Encounter: 08:54 Assessment and Plan (1) NSTEMI (non-ST elevated myocardial infarction) Current Visit: No Status: Acute Troponins now downtrending--0.03, 0.56, 0.41. Elevated in setting of UTI-- demand ischemia vs. NSTEMI. Mild decrease in EF per echo. EF now 40-45% with wall motion abnormalities. EF was 45-50% with wall motion abnormalities 01/2016. Pt denies chest pain or dyspnea. [facility] 01/2016: known HIGH TENSION TESTER proximal RCA with mature L to R collaterals; moderate stenosis to LAD, mild LCx disease. Medical management recommended. Discussed medical management vs. LHC. Given her anemia, mental status, recent LHC without intervention and lack of symptoms would recommend continued medical management. R/B/A to all options discussed. Pt prefers medical management. She is oriented to person and place, not time. Will stop heparin gtt. It has been on for almost 48 hours and H&H are declining. Continue ASA, Plavix, Statin, BB, nitrates. Will switch BB to Toprol XL and resume ARB for mild decline in EF. Cardiology is signing off. Reconsult PRN. Follow-up with Dr. Verduzco as outpt. (2) Acute CHF (congestive heart failure) Current Visit: Yes Status: Acute Echo resulted--EF mildly declined from previous. EF 40-45%, previously 45-50%. Pt is euvolemic on exam. Continue maintenance PO Lasix. Switch BB to Toprol XL 25mg daily--home dose and resume ARB. Qualifiers: Congestive heart failure type: systolic Qualified Code(s): I50.21 - Acute systolic (congestive) heart failure (3) Cardiomyopathy Current Visit: Yes Status: Acute EF 40-45% with wall motion abnormalities. Ischemic. [facility] 01/2016-- known HIGH TENSION TESTER proximal RCA with mature L to R collaterals; moderate stenosis to LAD, mild LCx disease. Medical management recommended. Resume home Toprol XL and ARB. Qualifiers: Cardiomyopathy type: unspecified Qualified Code(s): I42.9 - Cardiomyopathy , unspecified (4) Anemia Current Visit: Yes Status: Chronic H&H declining on heparin gtt, Plavix, ASA. Will stop heparin gtt since it has been almost 48 hours. HGB 10.0 on admission, 8.6 today. Continue to monitor. Qualifiers: Anemia type: other cause Other causes of anemia: other cause, not classified Qualified Code(s): D64.89 - Other specified anemias Discussion w patient/family: The assessment and plan as outlined above was discussed with the patient and/or family members who expressed understanding and agreement. All questions were answered. Thank you for involving us in the care of your patient. Please call with any questions. I will discuss all the above with Dr. Pimentel and make changes as necessary. Subjective Principal diagnosis: NSTEMI, CMP Interval history: Echo resulted EF is mildly decreased to 40-45% (previously 45-50% in 01/2016) with wall motion abnormalities. Troponin downtrending--0.03, 0.56, 0.41. Pt denies chest pain or dyspnea. Alert ad oriented to person and place, not time. Objective Vital Signs, Last 4 Hours Temp Pulse Resp BP Pulse Ox 07/25/16 07:52 97.7 F 91 18 146/68 98 General: Conversant, No Apparent Distress HEENT: Atraumatic, Normocephaly, Mucus Membranes Moist Neck: No JVD, Normal carotid pulses Cardiac: Reg Rate and Rhythm, Normal S1 and S2, No Murmur Lungs: Normal Breath Sounds, No Wheeze, Rales, Rhonchi Neuro: Alert and responsive, No focal deficits noted, Other (confused at times) Abdomen: Soft, Non-Tender Skin: No rashes noted on visualized skin Musculoskeletal: No Chest Wall Tenderness Extremities: No Clubbing, No Cyanosis, No Edema, Normal Pulses Results 07/25/16 06:02 07/25/16 06:02 Lab Results 07/24/16 07/24/16 07/25/16 14:01 22:47 06:02 WBC 7.2 Hgb 8.6 L Hct 28.1 L Plt Count 301 APTT 55.9 H 60.9 H Sodium Potassium Chloride Carbon Dioxide BUN Creatinine Glucose Calcium Magnesium 07/25/16 07/25/16 06:02 06:02 WBC Hgb Hct Plt Count APTT 66.4 H Sodium 140 Potassium 3.2 L Chloride 110 H Carbon Dioxide 20 BUN 15 Creatinine 0.80 Glucose 95 Calcium 8.1 L Magnesium 1.5 L Short CBC 07/25/16 Range/Units 06:02 WBC 7.2 (4.3-11.1) K/mcL Hgb 8.6 L (11.5-15.4) g/dL Hct 28.1 L (35.3-44.9) % Plt Count 301 (140-400) K/mcL Neutrophils # 5.6 (1.6-8.9) K/mcL BMP 07/25/16 Range/Units 06:02 Sodium 140 (136-145) mEq/L Potassium 3.2 L (3.5-4.5) mEq/L Chloride 110 H (98-109) mEq/L Carbon Dioxide 20 (19-29) mEq/L BUN 15 (7-20) mg/dL Creatinine 0.80 (0.57-1.11) mg/dL Glucose 95 (70-99) mg/dL Calcium 8.1 L (8.6-10.8) mg/dL Active Medications Acetaminophen/Hydrocodone Bitart ([place] 7.5-325 Mg) 1 tab PO Q4H PRN PRN Reason: pain Last Admin: 07/24/16 21:48 Dose: 1 tab Albuterol/Ipratropium (Duoneb) 3 ml IH [id number] KAMRAN PRN Reason: Protocol Stop: 01/22/17 10:01 Last Admin: 07/25/16 04:05 Dose: 3 ml Aspirin (Aspirin) 300 mg RC DAILY KAMRAN Stop: 01/22/17 11:46 Last Admin: 07/24/16 10:15 Dose: Not Given Budesonide/Formoterol Fumarate (Symbicort) 2 puff IH BIDRESP KAMRAN PRN Reason: Protocol Stop: 01/22/17 10:01 Last Admin: 07/24/16 21:11 Dose: 2 puff Bupropion HCl (Wellbutrin Sr) 150 mg PO BID KAMRAN Stop: 01/22/17 09:01 Last Admin: 07/24/16 21:30 Dose: 150 mg Clopidogrel Bisulfate (Plavix) 75 mg PO DAILY KAMRAN Stop: 01/22/17 09:01 Last Admin: 07/24/16 10:15 Dose: Not Given Furosemide (Lasix) 40 mg PO DAILY KAMRAN Stop: 01/22/17 09:01 Last Admin: 07/24/16 10:15 Dose: Not Given Heparin Sodium (Porcine) (Heparin) 4,000 unit IVP Q6HR PRN PRN Reason: SEE COMMENTS Stop: 01/22/17 13:08 Last Admin: 07/23/16 22:35 Dose: 4,000 unit Heparin Sodium (Porcine) (Heparin) 2,000 unit IVP Q6H PRN PRN Reason: SEE COMMENTS Stop: 01/22/17 13:08 Last Admin: 07/24/16 16:14 Dose: 2,000 unit Ceftriaxone Sodium 1,000 mg/ (Dextrose) 100 mls @ 200 mls/hr IVPB Q12HR KAMRAN Stop: 01/22/17 18:01 Last Admin: 07/25/16 05:10 Dose: 200 mls/hr Heparin Sodium/Dextrose (Heparin 25,000 Unit/500 Ml D5w) 25,000 unit in 500 mls @ 17.568 mls/hr IVC .Q24H KAMRAN; 12 UNIT/KG/HR PRN Reason: Protocol Stop: 07/25/16 10:00 Last Titration: 07/24/16 23:34 Dose: 20.49 unit/kg/hr, 30 mls/hr Dextrose/Sodium Chloride (D5% And 0.45% Nacl 1000 Ml Bag) 1,000 mls @ 50 mls/ hr IVC .Q20H KAMRAN Stop: 01/22/17 15:46 Last Admin: 07/24/16 16:22 Dose: 50 mls/hr Magnesium Sulfate 1 gm/ (Dextrose) 102 mls @ 100 mls/hr IVPB ONCE STA Stop: 07/25/16 09:06 Isosorbide Mononitrate (Imdur) 60 mg PO DAILY KAMRAN Stop: 01/22/17 09:01 Last Admin: 07/24/16 10:15 Dose: Not Given Lorazepam (Ativan) 1 mg PO HS KAMRAN Stop: 01/22/17 21:01 Last Admin: 07/24/16 21:30 Dose: 1 mg Metoprolol Tartrate (Lopressor) 25 mg PO BID KAMRAN Stop: 01/23/17 18:01 Last Admin: 07/24/16 21:31 Dose: 25 mg Morphine Sulfate (Morphine Sulfate) 1 mg IVP Q3H PRN PRN Reason: Severe Pain Stop: 01/23/17 03:04 Last Admin: 07/25/16 05:10 Dose: 1 mg Naloxone HCl (Narcan) 0.4 mg IVP Q2MIN PRN PRN Reason: Opioid Reversal Stop: 01/22/17 08:03 Nitroglycerin (Nitroglycerin) 0.4 mg SL Q5MIN PRN PRN Reason: CHEST PAIN Stop: 01/22/17 08:11 Ondansetron HCl (Zofran) 4 mg IVP Q8HR PRN PRN Reason: Nausea And Vomiting Stop: 01/22/17 08:03 Sertraline HCl (Zoloft) 100 mg PO DAILY KAMRAN Stop: 01/22/17 09:01 Last Admin: 07/24/16 10:15 Dose: Not Given Simvastatin (Zocor) 20 mg PO QPM KAMRAN PRN Reason: Protocol Stop: 01/22/17 18:01 Last Admin: 07/24/16 17:38 Dose: 20 mg - Imaging and Cardiology Chest Xray: report reviewed Echo: report reviewed - EKG Interpretation EKG results cardiology: other (12 hour tele AVG HR 92, no significant pauses or arrhythmias.) Consult Discharge Plan - Plan Referrals: Jeff Castaneda MD [Primary Care Provider] - 08/03/16 3:00 pm (Follow up August 03 at 3pm with LINDA DIEHL CNP.)
--- NOTE | 2016-07-25 09:02 | Electrocardiograph Report ---
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
--- NOTE | 2016-07-25 09:02 | Electrocardiograph Report ---
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
[2016-07-25] MEDS: Furosemide 40 MG TABLET PO SCH (09:31)
[2016-07-25] MEDS: BuPROPion SR (12 HR) 150 MG TABLET PO SCH (09:31)
[2016-07-25] MEDS: Isosorbide MONOnitrate (24 HR) 60 MG TAB.ER.24H PO SCH (09:31)
[2016-07-25] MEDS: Metoprolol XL (24 HR) Succ 25 MG TAB.ER.24H PO SCH (09:52)
--- NOTE | 2016-07-25 10:18 | Internal Med Progress Note ---
Date of Encounter: 07/25/16 Time of Encounter: 09:45 - Assessment and plan (1) Acute metabolic encephalopathy Current Visit: Yes Status: Acute Assessment and plan: Secondary to UTI, NSTEMI, and polypharmacy (patient takes lorazepam, norco, bupropion, zoloft, and tramadol) in the setting of mild dementia. not at baseline. treating underlying etiology. (2) NSTEMI (non-ST elevated myocardial infarction) Current Visit: No Status: Acute Assessment and plan: Troponin peaked at 0.56. EKG showed no acute ischemic changes. Cardiology consulted. Continue medical management. Patient not candidate for any intervention given comorbidities. Received heparin drip for 48 hours. Aspirin. Plavix. Statins. Imdur. Toprol. 07/25/16: Echocardiogram LVEF 40-45%, mild segmental LV systolic dysfunction. 01/2016: Heart catheterization revealed occluded prox RCA with mature left-to- right collaterals filling the PDA. Intermediate 50-60% mid LAD stenosis. Mildly to mildly elevated LVEDP. (3) Heart failure Current Visit: Yes Status: Acute Assessment and plan: New diagnosis of systolic heart failure secondary to NSTEMI. Patient with history of diastolic heart failure. compensated. Change beta norbert to Toprol. Start low-dose losartan. lasix. fluid Restriction. Close monitoring. Qualifiers: Heart failure type: combined Heart failure chronicity: acute on chronic Qualified Code(s): I50.43 - Acute on chronic combined systolic (congestive) and diastolic (congestive) heart failure (4) Urinary tract infection Current Visit: Yes Status: Acute Assessment and plan: pansusceptible E coli UTI. IV Ceftriaxone for total of 3 days Qualifiers: Urinary tract infection type: acute cystitis Hematuria presence: without hematuria Qualified Code(s): N30.00 - Acute cystitis without hematuria (5) Hypokalemia Current Visit: Yes Status: Acute Assessment and plan: replete (6) CAD (coronary artery disease) Current Visit: No Status: Chronic Assessment and plan: plan as above Qualifiers: Coronary Disease-Associated Artery/Lesion type: [place] artery [place] vs. transplanted heart: [place] heart Associated angina: angina presence unspecified Qualified Code(s): I25.10 - Atherosclerotic heart disease of [place] coronary artery without angina pectoris (7) COPD (chronic obstructive pulmonary disease) Current Visit: No Status: Chronic Assessment and plan: Duone[place] q6hr. Symbicort. Qualifiers: COPD type: unspecified COPD Qualified Code(s): J44.9 - Chronic obstructive pulmonary disease, unspecified (8) Dementia Current Visit: No Status: Chronic Assessment and plan: mild dementia Qualifiers: Dementia type: Alzheimer's disease Alzheimer's disease onset: late-onset Dementia behavioral disturbance: without behavioral disturbance Qualified Code (s): G30.1 - Alzheimer's disease with late onset; F02.80 - Dementia in other diseases classified elsewhere without behavioral disturbance (9) Hypertension Current Visit: No Status: Chronic Assessment and plan: Adequate BP. hold losartan. Continue Imdur, metoprolol, furosemide. Qualifiers: Hypertension type: essential hypertension Qualified Code(s): I10 - Essential (primary) hypertension (10) Abnormal CT scan, chest Current Visit: Yes Status: Acute Assessment and plan: CT of the chest findings reveal a 1.4 cm lobulated nodule in the left apex and several areas of groundglass opacity in both lungs. Follow-up in the outpatient pulmonology clinic. - Subjective Interval history: Pt more alert but still with delirium. She was AOx3 for nurse earlier but she is only AOx1 during my exam. She complains of pain on her pelvic area. - Constitutional Vitals: Temp Pulse Resp BP Pulse Ox 97.7 F 91 18 146/68 98 07/25/16 07:52 07/25/16 07:52 07/25/16 07:52 07/25/16 07:52 07/25/16 10:05 General appearance: Present: cooperative, A&O X 1, morbidly obese, pleasant, no acute distress, answers questions appropriately - Eye Eye exam: Present: sclera anicteric - Neck Neck exam general surgery: Present: supple, trachea midline. Absent: lymphadenopathy - Respiratory Respiratory exam: Present: CTAB - Cardiovascular Cardiovascular exam: Present: RRR - GI/Abdominal GI/Abdominal exam: Present: normal bowel sounds, soft. Absent: distended, tenderness - Extremities Exam Extremities exam: Absent: pedal edema - Neurological Exam Neurological exam: Present: alert. Absent: facial droop, speech deficit - Skin Skin exam: Absent: rash Internal Medicine: Result - Labs CBC & Chem 7: 07/25/16 06:02 07/25/16 06:02 Labs: Short CBC 07/25/16 Range/Units 06:02 WBC 7.2 (4.3-11.1) K/mcL Hgb 8.6 L (11.5-15.4) g/dL Hct 28.1 L (35.3-44.9) % Plt Count 301 (140-400) K/mcL Neutrophils # 5.6 (1.6-8.9) K/mcL BMP 07/25/16 06:02 Sodium 140 Potassium 3.2 L Chloride 110 H Carbon Dioxide 20 BUN 15 Creatinine 0.80 Glucose 95 Calcium 8.1 L - ABG Interpretation ABG results: ABG ABG pH 7.45 pH Units (7.32-7.45) 07/23/16 07:55 ABG pCO2 34 mmHg (35-45) L 07/23/16 07:55 ABG pO2 110 mmHg (85-104) H 07/23/16 07:55 ABG O2 Saturation 99 % (95-98) H 07/23/16 07:55 PT/INR, D-dimer PT 14.3 Seconds (9.4-12.1) H 07/23/16 14:26 Consult Discharge Plan - Plan Referrals: Jeff Castaneda MD [Primary Care Provider] - 08/03/16 3:00 pm (Follow up August 03 at 3pm with LINDA DIEHL CNP.)
[2016-07-25] MEDS: Budesonide/Formoterol 160/4.5 MDI IH SCH (10:49)
[2016-07-25] MEDS: *HR* HYDROcodone/Acet 7.5/325 mg TABLET PO PRN ×2 (11:06→18:04)
[2016-07-25] MEDS ORDERED: Acetaminophen 325 MG TABLET PO PRN (13:04)
[2016-07-25] MEDS ORDERED: *HR* HYDROcodone/Acet 7.5/325 mg TABLET PO PRN (13:10)
[2016-07-25] MEDS: *HR* HYDROcodone/Acet 5/325 mg TABLET PO PRN ×2 (13:55→22:01)
--- NOTE | 2016-07-25 14:49 | Internal Med Progress Note ---
Date of Encounter: 07/25/16 Time of Encounter: 12:45 - Assessment and plan (1) Acute metabolic encephalopathy Current Visit: Yes Status: Acute Assessment and plan: Secondary to UTI, NSTEMI, polypharmacy (patient takes lorazepam, norco, bupropion, zoloft, and tramadol) and lung disease in the setting of mild dementia. not at baseline. CT head showed mild volume loss and chronic small vessel changes. treating underlying etiology. decrease dose of bupropion, and zoloft. holding tramadol. adjusting norco for better pain control geodon prn. (2) NSTEMI (non-ST elevated myocardial infarction) Current Visit: No Status: Acute Assessment and plan: Troponin peaked at 0.56. EKG showed no acute ischemic changes. Cardiology consulted. Continue medical management. Patient not candidate for any intervention given comorbidities. Received heparin drip for 48 hours. Aspirin. Plavix. Statins. Imdur. Toprol. 07/25/16: Echocardiogram LVEF 40-45%, mild segmental LV systolic dysfunction. 01/2016: Heart catheterization revealed occluded prox RCA with mature left-to- right collaterals filling the PDA. Intermediate 50-60% mid LAD stenosis. Mildly to mildly elevated LVEDP. (3) Heart failure Current Visit: Yes Status: Acute Assessment and plan: New diagnosis of systolic heart failure secondary to NSTEMI. Patient with history of diastolic heart failure. compensated. Change beta norbert to Toprol. Start low-dose losartan. lasix. fluid Restriction. Close monitoring. Qualifiers: Heart failure type: combined Heart failure chronicity: acute on chronic Qualified Code(s): I50.43 - Acute on chronic combined systolic (congestive) and diastolic (congestive) heart failure (4) Urinary tract infection Current Visit: Yes Status: Acute Assessment and plan: pansusceptible E coli UTI. IV Ceftriaxone for total of 3 days Qualifiers: Urinary tract infection type: acute cystitis Hematuria presence: without hematuria Qualified Code(s): N30.00 - Acute cystitis without hematuria (5) Hypokalemia Current Visit: Yes Status: Acute Assessment and plan: replete (6) CAD (coronary artery disease) Current Visit: No Status: Chronic Assessment and plan: plan as above Qualifiers: Coronary Disease-Associated Artery/Lesion type: [place] artery [place] vs. transplanted heart: [place] heart Associated angina: angina presence unspecified Qualified Code(s): I25.10 - Atherosclerotic heart disease of [place] coronary artery without angina pectoris (7) COPD (chronic obstructive pulmonary disease) Current Visit: No Status: Chronic Assessment and plan: [place] q6hr. Symbicort. Qualifiers: COPD type: unspecified COPD Qualified Code(s): J44.9 - Chronic obstructive pulmonary disease, unspecified (8) Dementia Current Visit: No Status: Chronic Assessment and plan: mild dementia Qualifiers: Dementia type: Alzheimer's disease Alzheimer's disease onset: late-onset Dementia behavioral disturbance: without behavioral disturbance Qualified Code (s): G30.1 - Alzheimer's disease with late onset; F02.80 - Dementia in other diseases classified elsewhere without behavioral disturbance (9) Hypertension Current Visit: No Status: Chronic Assessment and plan: Adequate BP. Qualifiers: Hypertension type: essential hypertension Qualified Code(s): I10 - Essential (primary) hypertension (10) Abnormal CT scan, chest Current Visit: Yes Status: Acute Assessment and plan: I informed patient's daughters about the results of CT chest including the lung nodule. They verbalized understanding CT of the chest reveal a 1.4 cm lobulated nodule in the left apex, unchanged several areas of groundglass opacity in both lungs. The largest is 1.6 cm in RUL and could represent metastatic disease vs inflammatory or infectious. may need pulmonology consultation if no improvement in mental status after treating UTI. (11) Chronic pain syndrome Current Visit: Yes Status: Chronic Assessment and plan: secondary to right pelvis fracture 2/. pain control with opiates. - Subjective Interval history: Pt more alert but still with delirium. She was AOx3 for nurse earlier but she is only AOx1 during my exam. She complains of pain on her pelvic area when trying to sit up. - Constitutional Vitals: Temp Pulse Resp BP Pulse Ox 98.1 F 82 18 116/58 96 07/25/16 11:34 07/25/16 11:34 07/25/16 11:34 07/25/16 11:34 07/25/16 11:34 General appearance: Present: cooperative, A&O X 1, morbidly obese, pleasant, no acute distress, answers questions appropriately - Eye Eye exam: Present: sclera anicteric - ENT ENT exam: Present: mucous membranes moist - Neck Neck exam general surgery: Present: supple, trachea midline. Absent: lymphadenopathy - Respiratory Respiratory exam: Present: CTAB - Cardiovascular Cardiovascular exam: Present: RRR - GI/Abdominal GI/Abdominal exam: Present: normal bowel sounds, soft. Absent: distended, tenderness - Extremities Exam Extremities exam: Absent: pedal edema - Back Exam Back exam: Absent: CVA tenderness (L), CVA tenderness (R) - Neurological Exam Neurological exam: Absent: facial droop, speech deficit - Skin Additional comments: multiple bruises in her legs and arms. no hematoma Internal Medicine: Result - Labs CBC & Chem 7: 07/25/16 06:02 07/25/16 06:02 Labs: Short CBC 07/25/16 Range/Units 06:02 WBC 7.2 (4.3-11.1) K/mcL Hgb 8.6 L (11.5-15.4) g/dL Hct 28.1 L (35.3-44.9) % Plt Count 301 (140-400) K/mcL Neutrophils # 5.6 (1.6-8.9) K/mcL BMP 07/25/16 06:02 Sodium 140 Potassium 3.2 L Chloride 110 H Carbon Dioxide 20 BUN 15 Creatinine 0.80 Glucose 95 Calcium 8.1 L - ABG Interpretation ABG results: ABG ABG pH 7.45 pH Units (7.32-7.45) 07/23/16 07:55 ABG pCO2 34 mmHg (35-45) L 07/23/16 07:55 ABG pO2 110 mmHg (85-104) H 07/23/16 07:55 ABG O2 Saturation 99 % (95-98) H 07/23/16 07:55 PT/INR, D-dimer PT 14.3 Seconds (9.4-12.1) H 07/23/16 14:26 Consult Discharge Plan - Plan Referrals: Jessa Guitérrez MD [Partnered Physician] - 07/28/16 3:00 pm Jeff Castaneda MD [Primary Care Provider] - 08/03/16 3:00 pm (Follow up August 03 at 3pm with LINDA DIEHL CNP.)
[2016-07-25] MEDS ORDERED: Haloperidol Lactate 5 MG/ML VIAL IVP ONE (14:56)
[2016-07-25] MEDS ORDERED: Ziprasidone injection 20 MG/ML VIAL IM ONE (15:01)
--- NOTE | 2016-07-25 16:19 | Palliative - Consult Note ---
Date of Encounter: 07/26/16 Time of Encounter: 15:00 - Assessment and Plan (1) Altered mental status Current Visit: Yes Status: Acute Assessment and plan: After discussing with the patient's attending and her nurses I believe that this is markedly better than it has been. She has been on multi-pharmacy. He has acute delirium which in all likelihood is probably multifactorial in regimen. She has a recent non-STEMI, a urinary tract infection and again the multiple medications. Patient's had been being decreased. Tramadol has been held decreasing doses of both Wellbutrin and Zoloft are being done her color is being adjusted for better pain control. Geodon is made available when necessary. I have had discussion with patient's attending and would suggest switching the Wellbutrin and Zoloft to may be TCA like amitriptyline bedtime only and at low dose and that the amitriptyline may be better for her pain control. At this time we will hold on this suggestion and see how she does tonight after discussion with the primary treatment team. Qualifiers: Altered mental status type: delirium Qualified Code(s): R41.0 - Disorientation, unspecified (2) Goals of care, counseling/discussion Current Visit: Yes Status: Acute Assessment and plan: Currently she is full code, it does not appear that she has advanced directives done. Her family is not present at this time. We will meet with them tomorrow. (3) Cardiomyopathy Current Visit: Yes Status: Acute Assessment and plan: Patient has had a recent non-STEMI. Her ejection fraction on the today is 40-45 %. She is not deemed a candidate for any further intervention. Primary problem is diastolic heart failure and therefore had a normal ejection fraction is of decreased importance. And per hospitalist team Qualifiers: Cardiomyopathy type: unspecified Qualified Code(s): I42.9 - Cardiomyopathy , unspecified (4) Delirium Current Visit: Yes Status: Acute Assessment and plan: Heart failure is being treated aggressively, infection is being treated aggressively, since her being decreased and were working on getting her pain under better control. no med changes tonight as there have already been numerous medication changes consider some adjunctive pain medication tomorrow. (5) Chronic pain syndrome Current Visit: Yes Status: Chronic Assessment and plan: no changes in meds at this time Palliative-CN HPI - Data of Consult Patient: new to practice Requesting Physician: Della Farmer Primary Care Provider: Jfef Castaneda MD - Consult Narrative Palliative Care/Comfort Measures: Palliative care Reason for consult: CODE STATUS, goals of care History of present illness: Ms. Khalil is a 81 year old female The patient resides at [facility] in , [place] or she is being evaluated for rehabilitation status post a pelvis fracture last month. Normally lives at home with her daughter Pina Martinez and has been able to get up and get around without too much difficulty prior to her fall. When she was originally admitted for her pelvis fracture she was also treated for aspiration pneumonia sent out to the senior living on multiple opioids for pain control very agitated at the senior living sent to the emergency department where she was given Geodon and Ativan. Since that time she has had several episodes of being very very sedated with her pain medication. There is great deal of concern the amounts of her altered mental status are secondary to meds. Patient is now awake and alert and able to relate to me that her pain is down across her pelvis specifically on the left hand side that radiates all the way across. Some very deep ache at times somewhat sharp made definitely worse by movement and better with rest is also better when she holds the area. She rates the pain as being extremely bad. She is unable to give a number. She denies any shortness of breath with this pain she denies any nausea or vomiting with the pain although she does have nausea in general. She states that urinating originally made it worse but does not anymore and defecating does not cause her more pain. She does however complain about some constipation. CC: Della Farmer Seen for altered mental status urinary tract infection and congestive heart failure. Past Med Surg Social Fam HX - Past Medical History Medical history: arthritis, CHF, COPD, coronary artery disease, dementia, GERD, hyperlipidemia, hypertension, myocardial infarction, osteoporosis, peripheral artery disease, renal disease, other Psychiatric history: anxiety, depression - Past Surgical History Surgical History: cholecystectomy, hysterectomy, BHARATHI/BSO, other - Social History Smoking Status: Former smoker Smokeless Tobacco Status: No Alcohol use: none Drug use: none - Family History Father Living Status: Hx Family Cardiac Disorders: Yes Hx Family Cancer: Yes (RCC) Mother Living Status: Hx Family Cardiac Disorders: Yes Hx Family Cancer: Yes (bladder cancer) Medications and Allergies Budesonide/Formoterol 160/4.5 [Symbicort] 2 puff IH BID 02/20/15 [History] Clopidogrel [Plavix] 75 mg PO DAILY 02/20/15 [History] Furosemide [Lasix] 40 mg PO DAILY 02/20/15 [History] Tiotropium [Spiriva] 18 mcg IH DAILY 02/20/15 [History] BuPROPion SR (12 HR) [Wellbutrin SR] 150 mg PO BID 03/25/15 [History] Sertraline [Zoloft] 100 mg PO DAILY 03/25/15 [History] Donepezil [Aricept] 10 mg PO HS 04/03/15 [History] Alendronate Sodium [Fosamax] 70 mg PO MO 07/09/15 [History] Ascorbate Calcium [Vitamin C] 500 mg PO DAILY 07/09/15 [History] Aspirin [Adult Low Dose Aspirin EC] 81 mg PO DAILY 07/09/15 [History] Calcium Carbonate/Vitamin D3 [Calcium 500-Vit D3 400 Tablet] 1 tab PO DAILY 04/13 [History] Ferrous Sulfate 325 mg PO DAILY 07/09/15 [History] Isosorbide MONOnitrate (24 HR) [Imdur] 60 mg PO DAILY 07/09/15 [History] Losartan [Cozaar] 100 mg PO DAILY 07/09/15 [History] Metoprolol XL (24 HR) Succ [Toprol Xl] 25 mg PO DAILY 07/09/15 [History] Simvastatin [Zocor] 20 mg PO QPM 07/09/15 [History] Hydralazine HCl 50 mg PO TID 11/27/15 [History] Cholecalciferol (D-3) [Vitamin D] 1,000 unit PO DAILY 02/22/16 [History] Nitroglycerin [Nitrostat] 0.4 mg SL PRN PRN #30 tab.subl 02/26/16 [Rx] Albuterol Neb [Proventil Neb] 2.5 mg IH Q4HR 07/04/16 [History] LORazepam [Ativan] 1 mg PO HS #10 07/12/16 [Rx] Tramadol HCl [Ultram] 50 mg PO TID PRN #20 tab 07/12/16 [Rx] HYDROcodone/Acet 7.5/325 mg [[place] 7.5-325 mg] 1 tab PO Q4H PRN 07/23/16 [ History] LORazepam [Ativan] 0.5 mg PO DAILY 07/23/16 [History] Multivitamin [Multi-Day Vitamins] 1 tab PO DAILY 07/23/16 [History] Potassium Chloride [Potassium Chloride] 20 meq PO BID 07/23/16 [History] Allergies citalopram [From Celexa] Allergy (Verified 07/22/16 23:44) Abdominal Pain haloperidol [From Haldol] Allergy (Verified 07/22/16 23:44) Hallucinating amlodipine [From Norvasc] Adverse Reaction (Verified 07/22/16 23:44) Nausea roflumilast [From Daliresp] Adverse Reaction (Verified 07/22/16 23:44) Difficulty Breathing - Constitutional Constitutional ROS PAL: frequent falls (Recent fall.) - EENT Eyes: no discharge, no pain Ears: no ear discharge, no ear pain Ears, nose, mouth, throat: no mouth pain, no nasal congestion, no neck pain, no nose pain - Cardiovascular Cardiovascular ROS: no chest pain, no chest pain at rest, no chest pain with activity - Respiratory Respiratory: no cough, no dyspnea, no hemoptysis - Gastrointestinal Gastrointestinal: constipation, nausea, no diarrhea, no vomiting - Genitourinary Palliative ROS female: pelvic pain, no urinary frequency, no urinary hesitancy (She has been recently diagnosed with a UTI) - Musculoskeletal Musculoskeletal ROS IM: arthralgias (Pain with movement of either leg especially flexion this is on both sides left greater than right) - Integumentary ROS Integumentary: no skin pain, no sores - Neurological Neurological ROS: behavioral changes, confusion - Psychiatric Psychiatric general PM: anxiety, behavioral changes, confusion, depression, no homicidal ideation, no hopelessness, no suicidal ideation - Endocrine Endocrine IM: other (No diabetes or thyroid problems.) Palliative Care-Exam - Constitutional Vitals: Temp Pulse Resp BP Pulse Ox 98.1 F 82 18 116/58 96 07/25/16 11:34 07/25/16 11:34 07/25/16 11:34 07/25/16 11:34 07/25/16 11:34 General appearance: Present: no acute distress - Head Head Exam: Present: atraumatic, normal inspection, normocephalic - Eye Eye exam: Present: EOMI, normal appearance - ENT ENT exam: Present: mucous membranes moist, normal oropharynx (No lesions noted) - Neck Neck exam: Present: full ROM, normal inspection - Respiratory Respiratory exam: Present: CTAB - Cardiovascular Cardiovascular exam: Present: RRR - GI/Abdominal Exam GI/Abdominal exam: Present: normal bowel sounds, soft. Absent: tenderness - Catheter Type: Urethral (French) - Extremities Exam Extremities exam: Present: normal inspection. Absent: pedal edema, tenderness ( But there is pain in the pelvis with movement of the thighs specifically flexion.) - Neurological Exam Neurological exam: Present: alert. Absent: oriented X3 - Psychiatric Psychiatric exam: Present: normal affect, normal mood. Absent: agitated, anxious - Skin Skin exam: Present: dry, warm Internal Medicine - CN: Reslt - Labs CBC & Chem 7: 07/26/16 06:10 07/26/16 06:10 Labs: Short CBC 07/25/16 Range/Units 06:02 WBC 7.2 (4.3-11.1) K/mcL Hgb 8.6 L (11.5-15.4) g/dL Hct 28.1 L (35.3-44.9) % Plt Count 301 (140-400) K/mcL Neutrophils # 5.6 (1.6-8.9) K/mcL BMP 07/25/16 06:02 Sodium 140 Potassium 3.2 L Chloride 110 H Carbon Dioxide 20 BUN 15 Creatinine 0.80 Glucose 95 Calcium 8.1 L - ABG Interpretation ABG results: ABG ABG pH 7.45 pH Units (7.32-7.45) 07/23/16 07:55 ABG pCO2 34 mmHg (35-45) L 07/23/16 07:55 ABG pO2 110 mmHg (85-104) H 07/23/16 07:55 ABG O2 Saturation 99 % (95-98) H 07/23/16 07:55 PT/INR, D-dimer PT 14.3 Seconds (9.4-12.1) H 07/23/16 14:26 Consult Discharge Plan - Plan Referrals: Jessa Gutiérrez MD [Partnered Physician] - 07/28/16 3:00 pm (Please follow up as schedule...) Jeff Castaneda MD [Primary Care Provider] - 08/03/16 3:00 pm (Follow up August 03 at 3pm with LINDA DIEHL CNP.) Palliative Quality Palliative Quality: Screen for Code Status: Yes (Needs further discussion with family), Screen for Goals of Care: Yes (Needs further discussion with family), Screen for Pain: Yes, If Pain Regimen Started, Initiate Bowel Regimen: Yes, Screen for Nausea/Vomitting: Yes Code Status: 07/23/16 08:02 Resuscitation Status: Active [RES] Routine Comment: Resuscitation Status: Full Code
[2016-07-25] MEDS ORDERED: Budesonide Neb 0.5 MG/2 ML IH SCH ×2 (18:00→22:00)
[2016-07-25] MEDS: *HR* Heparin 5,000 UNIT/ML VIAL SQ SCH (18:17)
[2016-07-25] MEDS: Acetaminophen 325 MG TABLET PO PRN (19:56)
[2016-07-25] MEDS: Budesonide Neb 0.5 MG/2 ML IH SCH (20:07)
[2016-07-25] MEDS: *HR* LORazepam 1 MG TABLET PO SCH (21:12)
[2016-07-25] MEDS: Melatonin 3 MG TABLET PO SCH (21:12)
[2016-07-25] MEDS: BuPROPion SR (12 HR) 100 MG TABLET PO SCH (22:02)
[2016-07-26] MEDS: *HR* HYDROcodone/Acet 7.5/325 mg TABLET PO PRN ×2 (04:50→12:53)
[2016-07-26] MEDS: *HR* Heparin 5,000 UNIT/ML VIAL SQ SCH ×2 (06:01→19:00)
[2016-07-26] MEDS: Acetaminophen 325 MG TABLET PO PRN ×2 (06:13→22:55)
[2016-07-26 06:37] LABS: Basophils % 0.4 %; Eosinophils # 0.2 K/mcL (0.0-0.6); Hemoglobin 8.3 g/dL (11.5-15.4); Immature Granulocytes % 0.6 % (0-4); Lymphocytes # 0.5 K/mcL (0.6-4.6); Lymphocytes % 7.9 %; Mean Corpuscular HGB Conc 30.7 g/dL (31.6-35.5); Mean Corpuscular Hemoglobin 29.7 pg (28.0-33.3); Mean Corpuscular Volume 96.8 fL (83.0-100.0); Mean Platelet Volume 9.8 fL (9.4-12.4); Monocytes # 0.8 K/mcL (0.0-1.3); Monocytes % 11.1 %; Neutrophils # 5.2 K/mcL (1.6-8.9); Platelet Count 284 K/mcL (140-400); Red Blood Count 2.79 M/mcL (3.82-4.97); Red Cell Distribution Width 16.4 % (11.5-14.5)
[2016-07-26 06:46] LABS: BUN/Creatinine Ratio 18 (6-26); Blood Urea Nitrogen 14 mg/dL (7-20); Calcium 8.4 mg/dL (8.6-10.8); Carbon Dioxide 21 mEq/L (19-29); Chloride 110 mEq/L (98-109); Glucose 90 mg/dL (70-99); Magnesium 1.8 mg/dL (1.6-2.6); Osmolality,Calculated 290 (280-300); Potassium 3.3 mEq/L (3.5-4.5); Sodium 140 mEq/L (136-145); eGFR For African Americans > 60 (> 60); eGFR For Non-African Americans > 60 (> 60)
[2016-07-26] MEDS: Budesonide Neb 0.5 MG/2 ML IH SCH ×2 (07:49→19:54)
[2016-07-26] MEDS: Ipratropium/Albuterol Neb 3 ML IH SCH ×4 (07:49→21:54)
--- NOTE | 2016-07-26 08:27 | Internal Med Progress Note ---
Date of Encounter: 07/26/16 Time of Encounter: 08:24 - Time Spent With Patient 1. Acute metabolic encephalopathy likely secondary to sepsis from urinary tract infection with Escherichia coli resistant only to ampicillin Improving Continue ceftriaxone day 4 Metabolic encephalopathy likely secondary also to polypharmacy she was taking lorazepam, [place], Propine, Zoloft and tramadol with underlying dementia 2. Non-STEMI, most likely demand ischemia Heparin drip was discontinued Troponin peaked at 0.56. EKG showed no acute ischemic changes. Cardiology consulted which recommended only medical management for now. Patient not candidate for any intervention given comorbidities. Received heparin drip for 48 hours. Aspirin. Plavix. Statins. Imdur. Toprol. 07/25/16: Echocardiogram LVEF 40-45%, mild segmental LV systolic dysfunction. 01/2016: Heart catheterization revealed occluded prox RCA with mature left-to- right collaterals filling the PDA. Intermediate 50-60% mid LAD stenosis. Mildly to mildly elevated LVEDP. 3. Newly diagnosed systolic heart failure likely secondary to ischemia/non- STEMI. Ejection fraction of 40-45%. Continue Lasix IV Hypokalemia exacerbated by Lasix Replete as needed 4. COPD, not exacerbation 5. Recent pelvic fracture, followed as an outpatient 6. Lung nodules, follow-up as an outpatient CT of the chest reveal a 1.4 cm lobulated nodule in the left apex, unchanged several areas of groundglass opacity in both lungs. The largest is 1.6 cm in RUL and could represent metastatic disease vs inflammatory or infectious. 7. Chronic pain syndrome, Dr. Correa will discuss the patient's condition with her daughters in order to possibly arrange an interventional radiology appointment for possible nerve block, consider switching to amitriptyline and tapering down Zoloft Greater than 35 minutes - Subjective Interval history: confused, no CP or SOB, no abdominal pain , disoriented in time, no dysuria or diarrhea. NO fever - Constitutional Vitals: Temp Pulse Resp BP Pulse Ox 97.7 F 89 18 157/65 94 L 07/26/16 08:03 07/26/16 08:03 07/26/16 08:03 07/26/16 08:03 07/26/16 08:03 General appearance: Present: cooperative, A&O X 2, morbidly obese, pleasant, no acute distress, answers questions appropriately - Head Head exam: Present: atraumatic, normocephalic - Eye Eye exam: Present: PERRL, conjuntiva pink, sclera anicteric Pupils: Present: PERRL - Neck Neck exam general surgery: Present: supple, trachea midline. Absent: lymphadenopathy - Respiratory Respiratory exam: Present: decreased breath sounds, CTAB. Absent: accessory muscle use, rales, rhonchi, wheezes - Cardiovascular Cardiovascular exam: Present: RRR, +S1, +S2. Absent: diastolic murmur, gallop, rubs, systolic murmur - GI/Abdominal GI/Abdominal exam: Present: normal bowel sounds, soft, no peritoneal signs. Absent: distended, tenderness - Extremities Exam Extremities exam: Present: warm, radial pulses palpable and symetrical. Absent : calf tenderness, cyanotic, pedal edema - Neurological Exam Neurological exam: Present: CN II-XII intact, no focal deficits. Absent: oriented X3, pronater drift, facial droop, speech deficit Additional comments: Generalized weakness - Skin Skin exam: Present: dry, intact Internal Medicine: Result - Labs CBC & Chem 7: 07/26/16 06:10 07/26/16 06:10 Labs: Short CBC 07/26/16 Range/Units 06:10 WBC 6.7 (4.3-11.1) K/mcL Hgb 8.3 L (11.5-15.4) g/dL Hct 27.0 L (35.3-44.9) % Plt Count 284 (140-400) K/mcL Neutrophils # 5.2 (1.6-8.9) K/mcL BMP 07/26/16 06:10 Sodium 140 Potassium 3.3 L Chloride 110 H Carbon Dioxide 21 BUN 14 Creatinine 0.80 Glucose 90 Calcium 8.4 L - ABG Interpretation ABG results: ABG ABG pH 7.45 pH Units (7.32-7.45) 07/23/16 07:55 ABG pCO2 34 mmHg (35-45) L 07/23/16 07:55 ABG pO2 110 mmHg (85-104) H 07/23/16 07:55 ABG O2 Saturation 99 % (95-98) H 07/23/16 07:55 PT/INR, D-dimer PT 14.3 Seconds (9.4-12.1) H 07/23/16 14:26 Consult Discharge Plan - Plan Referrals: Jessa Gutiérrez MD [Partnered Physician] - 07/28/16 3:00 pm (Please follow up as schedule...) Jeff Castaneda MD [Primary Care Provider] - 08/03/16 3:00 pm (Follow up August 03 at 3pm with LINDA DIEHL CNP.)
[2016-07-26] MEDS ORDERED: Potassium Chloride Elixir 20 MEQ/15 ML UDC PO ONE (08:37)
[2016-07-26] MEDS: Furosemide 20 MG TABLET PO SCH ×2 (10:20→18:20)
[2016-07-26] MEDS: BuPROPion SR (12 HR) 100 MG TABLET PO SCH (10:20)
[2016-07-26] MEDS: Isosorbide MONOnitrate (24 HR) 60 MG TAB.ER.24H PO SCH (10:20)
[2016-07-26] MEDS: Metoprolol XL (24 HR) Succ 25 MG TAB.ER.24H PO SCH (10:21)
[2016-07-26] MEDS: Potassium Chloride Elixir 20 MEQ/15 ML UDC PO SCH (10:22)
[2016-07-26] MEDS: *HR* HYDROcodone/Acet 5/325 mg TABLET PO PRN ×4 (10:41→23:47)
--- NOTE | 2016-07-26 15:02 | Palliative Progress Note ---
Date of Encounter: 07/26/16 Time of Encounter: 10:50 - Assessment and plan (1) Altered mental status Current Visit: Yes Status: Acute Assessment and plan: The patient is much more awake and alert at this time. Believe that her delirium was multifactorial including the urinary tract infection as well as the MRI but certainly medication did not play a role in it. We will be very judicious with the use of medications. Qualifiers: Altered mental status type: delirium Qualified Code(s): R41.0 - Disorientation, unspecified (2) Goals of care, counseling/discussion Current Visit: Yes Status: Acute Assessment and plan: The patient is full code. Did have a discussion with patient and her daughters they are discussing this further may be changed prior to discharge. The goal of care is for the patient to return home with her family. She still does have I believe 10 days left of the family plans to make utilize utilization of this. Social work is working on penitentiary as a sheet apparently either cannot go back to traditions or may not wish to. (3) Cardiomyopathy Current Visit: Yes Status: Acute Assessment and plan: The patient is having no chest pain and shortness of breath is Qualifiers: Cardiomyopathy type: unspecified Qualified Code(s): I42.9 - Cardiomyopathy , unspecified (4) Delirium Current Visit: Yes Status: Acute Assessment and plan: This is very much improved today. Change around pain medication to make it a little bit more available for pain, however he will not want to increase the dose. Will add on low-dose amitriptyline at night to assist with pain. Patient also does have a history of depression and this may help. We are weaning her down on her other antidepressants. (5) Chronic pain syndrome Current Visit: Yes Status: Chronic Assessment and plan: Add low-dose amitriptyline at night only, and decrease the Wellbutrin. Will make the [place] a little bit more available. And stop the larger dose. - Time Spent With Patient Total time spent is greater than 50% in coordination of care (as documented) at patient's floor/unit and/or counseling patient: - Subjective Interval history: The patient is feeling much better this morning. She is eating, and states the pain medications are working better for her. Not appear to have any delirium currently. - Constitutional Vitals: Abnormal lab results RBC 2.79 M/mcL (3.82-4.97) L 07/26/16 06:10 Hgb 8.3 g/dL (11.5-15.4) L 07/26/16 06:10 Hct 27.0 % (35.3-44.9) L 07/26/16 06:10 MCHC 30.7 g/dL (31.6-35.5) L 07/26/16 06:10 RDW 16.4 % (11.5-14.5) H 07/26/16 06:10 Lymphocytes # 0.5 K/mcL (0.6-4.6) L 07/26/16 06:10 PT 14.3 Seconds (9.4-12.1) H 07/23/16 14:26 APTT 25.5 Seconds (26.0-36.0) L D 07/26/16 06:10 ABG pCO2 34 mmHg (35-45) L 07/23/16 07:55 ABG pO2 110 mmHg (85-104) H 07/23/16 07:55 ABG O2 Saturation 99 % (95-98) H 07/23/16 07:55 VBG pH 7.44 pH Units (7.32-7.42) H 07/22/16 23:48 VBG pCO2 38 mmHg (41-51) L 07/22/16 23:48 VBG pO2 50 mmHg (25-40) H 07/22/16 23:48 Potassium 3.3 mEq/L (3.5-4.5) L 07/26/16 06:10 Chloride 110 mEq/L (98-109) H 07/26/16 06:10 POC Glucose 108 (58-89) H 07/25/16 16:48 Calcium 8.4 mg/dL (8.6-10.8) L 07/26/16 06:10 Troponin I 0.41 ng/mL (0-0.03) H* 07/23/16 14:26 B-Natriuretic Peptide 472 pg/mL (0-100) H 07/22/16 23:48 Urine Clarity Cloudy (Clear) A 07/23/16 02:20 Ur Leukocyte Esterase Moderate (Negative) H 07/23/16 02:20 Urine Microscopic WBC 30-50 per hpf (0-3) H 07/23/16 02:20 Urine Bacteria Moderate per hpf (None-Few) H 07/23/16 02:20 Ur Culture Indicated? YES (NO) A 07/23/16 02:20 General appearance: Present: no acute distress - Head Head exam: Present: atraumatic, normal inspection - Eye Eye exam: Present: normal appearance - ENT ENT exam: Present: mucous membranes moist - Respiratory Respiratory exam: Present: decreased breath sounds - Cardiovascular Cardiovascular exam: Present: RRR - GI/Abdominal GI/Abdominal exam: Present: normal bowel sounds, soft. Absent: tenderness - Extremities Exam Extremities exam: Present: normal inspection. Absent: pedal edema, tenderness ( Is pain with movement of her legs especially the left one is on her pelvis secondary to her fracture.) - Neurological Exam Neurological exam: Present: alert - Psychiatric Psychiatric exam: Present: normal affect, normal mood. Absent: agitated, anxious - Skin Skin exam: Present: dry, warm Palliative Quality Palliative Quality: Screen for Code Status: Yes, Screen for Goals of Care: Yes, Screen for Pain: Yes, If Pain Regimen Started, Initiate Bowel Regimen: Yes, Screen for Nausea/Vomitting: Yes Code Status: 07/23/16 08:02 Resuscitation Status: Active [RES] Routine Comment: Resuscitation Status: Full Code - Labs CBC & Chem 7: 07/26/16 06:10 07/26/16 06:10 Labs: Laboratory Results - last 24 hr 07/25/16 07/25/16 07/25/16 07:50 11:30 16:48 WBC RBC Hgb Hct MCV MCH MCHC RDW Plt Count MPV Immature Gran % Seg Neutrophils % Lymphocytes % Monocytes % Eosinophils % Basophils % Neutrophils # Lymphocytes # Monocytes # Eosinophils # Basophils # APTT Sodium Potassium Chloride Carbon Dioxide BUN Creatinine Est GFR ( Amer) Est GFR (Non-Af Amer) BUN/Creatinine Ratio Glucose POC Glucose 101 H 116 H 108 H Calculated Osmolality Calcium Magnesium 07/26/16 07/26/16 07/26/16 06:10 06:10 06:10 WBC 6.7 RBC 2.79 L Hgb 8.3 L Hct 27.0 L MCV 96.8 MCH 29.7 MCHC 30.7 L RDW 16.4 H Plt Count 284 MPV 9.8 Immature Gran % 0.6 Seg Neutrophils % 77.0 Lymphocytes % 7.9 Monocytes % 11.1 Eosinophils % 3.0 Basophils % 0.4 Neutrophils # 5.2 Lymphocytes # 0.5 L Monocytes # 0.8 Eosinophils # 0.2 Basophils # 0.0 APTT 25.5 L D Sodium 140 Potassium 3.3 L Chloride 110 H Carbon Dioxide 21 BUN 14 Creatinine 0.80 Est GFR ( Amer) > 60 Est GFR (Non-Af Amer) > 60 BUN/Creatinine Ratio 18 Glucose 90 POC Glucose Calculated Osmolality 290 Calcium 8.4 L Magnesium 1.8 - ABG Interpretation ABG results: ABG ABG pH 7.45 pH Units (7.32-7.45) 07/23/16 07:55 ABG pCO2 34 mmHg (35-45) L 07/23/16 07:55 ABG pO2 110 mmHg (85-104) H 07/23/16 07:55 ABG O2 Saturation 99 % (95-98) H 07/23/16 07:55 PT/INR, D-dimer PT 14.3 Seconds (9.4-12.1) H 07/23/16 14:26 Consult Discharge Plan - Plan Referrals: Jessa Gutiérrez MD [Partnered Physician] - 07/28/16 3:00 pm (Please follow up as schedule...) Jeff Castaneda MD [Primary Care Provider] - 08/03/16 3:00 pm (Follow up August 03 at 3pm with LINDA DIEHL CNP.)
--- NOTE | 2016-07-26 17:11 | Event Note ---
Date of Encounter: 07/26/16 Time of Encounter: 14:40 Mayra Khalil briefly per request David August CT scan of 07/23/2016. This scan indicated there was an ill-defined nodular D in the left apex that was 1.4 x 0.9 cm. This was compared to a study of 06/14/2016 and was not significantly changed. There was also patchy areas of groundglass pasty in the lower aspects of the lungs also not significantly changed from previous study. The largest abnormality was a 1.6 cm in the RUL. Findings may represent metastatic disease versus inflammatory infectious etiology. The patient and her daughter that the 1.4 cm lesion in the L apex was stable, and the left upper lobe appeared to be new. I explained to her case would be presented at the lung tumor Board this on July 28. Follow-up scheduled for that day will be canceled. Injected for that was scheduled for today 07/26/2016 will be rescheduled in 2 weeks. This plan of care was also discussed with Dr. Gutiérrez.
[2016-07-26] MEDS: Melatonin 3 MG TABLET PO SCH (20:16)
[2016-07-26] MEDS: *HR* LORazepam 1 MG TABLET PO SCH (20:16)
[2016-07-27] MEDS: *HR* HYDROcodone/Acet 5/325 mg TABLET PO PRN ×2 (04:50→08:30)
[2016-07-27] MEDS: *HR* Heparin 5,000 UNIT/ML VIAL SQ SCH ×2 (05:49→17:59)
[2016-07-27] MEDS ORDERED: *HR* Morphine 2 MG/ML SYRINGE IVP ONE (06:28)
[2016-07-27 07:29] LABS: BUN/Creatinine Ratio 15 (6-26); Blood Urea Nitrogen 12 mg/dL (7-20); Calcium 8.3 mg/dL (8.6-10.8); Carbon Dioxide 22 mEq/L (19-29); Chloride 112 mEq/L (98-109); Glucose 80 mg/dL (70-99); Osmolality,Calculated 295 (280-300); Potassium 3.2 mEq/L (3.5-4.5); Sodium 143 mEq/L (136-145); eGFR For African Americans > 60 (> 60); eGFR For Non-African Americans > 60 (> 60)
[2016-07-27] MEDS: Budesonide Neb 0.5 MG/2 ML IH SCH ×2 (07:46→20:28)
[2016-07-27] MEDS: Ipratropium/Albuterol Neb 3 ML IH SCH ×3 (07:47→20:28)
[2016-07-27] MEDS: Isosorbide MONOnitrate (24 HR) 60 MG TAB.ER.24H PO SCH (08:31)
[2016-07-27] MEDS: Metoprolol XL (24 HR) Succ 25 MG TAB.ER.24H PO SCH (08:31)
[2016-07-27] MEDS: Potassium Chloride Elixir 20 MEQ/15 ML UDC PO SCH (08:31)
[2016-07-27] MEDS: Furosemide 20 MG TABLET PO SCH ×2 (08:31→17:12)
--- NOTE | 2016-07-27 08:50 | Discharge Summary ---
<aMco Anderson - Last Filed: 07/27/16 09:02> Date of Encounter: 07/27/16 Time of Encounter: 08:48 - Discharge Diagnosis (1) Acute metabolic encephalopathy Priority: Primary Status: Acute (2) NSTEMI (non-ST elevated myocardial infarction) Priority: Secondary Status: Acute (3) Lung nodule Priority: Secondary Status: Acute (4) Acute CHF (congestive heart failure) Priority: Secondary Status: Acute Qualifiers: Congestive heart failure type: systolic Qualified Code(s): I50.21 - Acute systolic (congestive) heart failure (5) Urinary tract infection Priority: Secondary Status: Acute Qualifiers: Urinary tract infection type: acute cystitis Hematuria presence: without hematuria Qualified Code(s): N30.00 - Acute cystitis without hematuria (6) Hypokalemia Priority: Secondary Status: Acute (7) Chronic pain syndrome Priority: Secondary Status: Chronic (8) COPD (chronic obstructive pulmonary disease) Priority: Secondary Status: Chronic Qualifiers: COPD type: unspecified COPD Qualified Code(s): J44.9 - Chronic obstructive pulmonary disease, unspecified - Discharge Medications Prescriptions: OxyCODONE Immed Rel [Roxicodone 5 MG] 5 mg PO Q3H PRN #240 tablet PRN Reason: Pain Home Medications: Budesonide/Formoterol 160/4.5 [Symbicort] 2 puff IH BID 02/20/15 [History] Clopidogrel [Plavix] 75 mg PO DAILY 02/20/15 [History] Tiotropium [Spiriva] 18 mcg IH DAILY 02/20/15 [History] Donepezil [Aricept] 10 mg PO HS 04/03/15 [History] Alendronate Sodium [Fosamax] 70 mg PO MO 07/09/15 [History] Ascorbate Calcium [Vitamin C] 500 mg PO DAILY 07/09/15 [History] Aspirin [Adult Low Dose Aspirin EC] 81 mg PO DAILY 07/09/15 [History] Calcium Carbonate/Vitamin D3 [Calcium 500-Vit D3 400 Tablet] 1 tab PO DAILY 04/13 [History] Ferrous Sulfate 325 mg PO DAILY 07/09/15 [History] Isosorbide MONOnitrate (24 HR) [Imdur] 60 mg PO DAILY 07/09/15 [History] Losartan [Cozaar] 100 mg PO DAILY 07/09/15 [History] Metoprolol XL (24 HR) Succ [Toprol Xl] 25 mg PO DAILY 07/09/15 [History] Simvastatin [Zocor] 20 mg PO QPM 07/09/15 [History] Hydralazine HCl 50 mg PO TID 11/27/15 [History] Cholecalciferol (D-3) [Vitamin D] 1,000 unit PO DAILY 02/22/16 [History] Nitroglycerin [Nitrostat] 0.4 mg SL PRN PRN #30 tab.subl 02/26/16 [Rx] Albuterol Neb [Proventil Neb] 2.5 mg IH Q4HR 07/04/16 [History] LORazepam [Ativan] 1 mg PO HS #10 07/12/16 [Rx] Multivitamin [Multi-Day Vitamins] 1 tab PO DAILY 07/23/16 [History] Potassium Chloride 20 meq PO BID 07/23/16 [History] Amitriptyline [Elavil] 10 mg PO HS tablet 07/27/16 [Rx] Furosemide [Lasix] 20 mg PO BIDDIURETIC tablet 07/27/16 [Rx] OxyCODONE Immed Rel [Roxicodone 5 MG] 5 mg PO Q3H PRN #240 tablet 07/27/16 [Rx] Sertraline [Zoloft] 50 mg PO DAILY tablet 07/27/16 [Rx] Allergies/Adverse Reactions: Allergies citalopram [From Celexa] Allergy (Verified 07/22/16 23:44) Abdominal Pain haloperidol [From Haldol] Allergy (Verified 07/22/16 23:44) Hallucinating amlodipine [From Norvasc] Adverse Reaction (Verified 07/22/16 23:44) Nausea roflumilast [From Daliresp] Adverse Reaction (Verified 07/22/16 23:44) Difficulty Breathing Procedures/tests Complete & Pending: Procedures Performed prior 72 hours Category Date Time Status EV echocardiogram Routine Y 07/24/16 15:32 Completed Date of admission: 07/23/16 04:53 Primary care physician: Jeff Castaneda MD Consults: 07/23/16 08:09 Consult to Occupational Therapy [CONS] Routine Comment: Evaluate, develop and implement POC Consult to Physical Therapy [CONS] Routine Comment: Evaluate, develop and implement POC 07/23/16 15:31 Consult to Cardiology [CONS] Routine Comment: Consulting Provider: Cardiology Beth Reason for Consult: NSTEMI Time Notified: 11:00 Call Completed: Yes 07/23/16 20:13 Consult to Speech Therapy [CONS] Routine Comment: Evaluate, develop and implement POC Reason for Consult: Patient was [place] thickened at SNF before admissionl, decline in mental status Call Completed: No 07/24/16 18:33 Consult to [employer] Specialist [CONS] Routine Reason for SW Consult: Pt from [facility] 07/25/16 14:58 Consult to Palliative Care [CONS] Routine Comment: goals of care Consulting Provider: Palliative Care Beth 07/26/16 13:43 Consult to Oncology Hematology [CONS] Stat Consulting Provider: Jessa Gutiérrez Reason for Consult: old pt for anemia now with suspecious lesions on ct please eval Time Notified: 13:44 Call Completed: Yes Discharging clinician: Maco Anderson Anticipated date of discharge: 07/27/16 - Patient Status Disposition: Transfer SNF Condition: Fair Functional capacity at discharge: bed bound Overall status at discharge: patient is progressing back to baseline - Discharge Instructions Follow Up With: Jessa Gutiérrez MD [Partnered Physician] - 07/28/16 3:00 pm (Please follow up as schedule...) Jeff Castaneda MD [Primary Care Provider] - 08/03/16 3:00 pm (Follow up August 03 at 3pm with LINDA DIEHL CNP.) - Diet and Activity Activity: as per physical therapy, wear oxygen at all times Diet: other (Mechanically altered diet ground meat. [place] thickened liquids. ) Hospital course: Ms. Khalil is a 81 year old female [facility]. Patient has a history of dementia. Recently patient was treated for pelvic fracture nonoperatively. During that admission patient was diagnosed with aspiration pneumonia. She was then discharged to a SNF on multiple opioids. Patient was noted to have acute metabolic encephalopathy after being evaluated in the ER. Initially she was only responsive to painful stimuli. Her state was likely secondary to underlying dementia, delirium secondary to medical disease including UTI and polypharmacy from opiates, benzodiazepines, neuroleptics. Furthermore patient underwent CT of chest which revealed a 1.4 cm lobulated nodule in the left apex and in several areas of groundglass opacities. The CT was concerning for metastatic versus infectious versus inflammatory condition. Patient was started on ceftriaxone for her UTI. During the second day, patient started having midsternal chest pain. Earlier her troponin was elevated at 0.56. EKG showed nonischemic changes. Patient was started on IV heparin drip for non-STEMI and continued for 48 hours. She was given aspirin and statin, beta norbert and morphine. Cardiology was consult and and recommended treating patient medically. Patient's echocardiogram on 06/6016 showed EF of 55% with moderate diastolic dysfunction of the left ventricle. She also had a heart catheter on 01/2016 showing occluded proximal RCA with mature [id number] collaterals filling the PDA, intermediate 50-60% mid LAD stenosis, and mild to mildly elevated left ventricular end-diastolic pressure. Patient was continued on home Lasix due to chronic diastolic congestive heart failure. Repeat echo showed EF of 40-45%. She is diagnosed with acute systolic congestive heart failure. Her beta norbert was switched to Toprol-XL 25 mg daily. Patient's mental status continued to improve with treating her medical conditions. Her urine cultures grew pansensitive Escherichia coli and ceftriaxone was continued. Furthermore her tramadol was discontinued, bupropion dose was decreased and Zoloft doses decreased. Patient was started on amitriptyline at night. Patient's [place] was discontinued and patient she was started on Roxicodone. Furthermore regarding patient's CT chest and findings of nodular densities in the left apex, patient's case will be presented on July 28 at the tumor board. She will then follow-up with Dr. Richards outpatient. Furthermore she will follow up outpatient with interventional radiology for possible nerve block this will be scheduled from 2 weeks from now. Patient will be discharged to a SNF. She will require physical therapy and occupational therapy. - Time Spent with Patient Total time spent providing and/or coordinating discharge services: - Constitutional Vitals: Temp Pulse Resp BP Pulse Ox 98.3 F 87 20 160/61 99 07/27/16 06:47 07/27/16 06:47 07/27/16 07:47 07/27/16 06:47 07/27/16 07:47 General appearance: Present: cooperative, A&O X 2, morbidly obese, pleasant, no acute distress, answers questions appropriately - Head Head exam: Present: atraumatic, normocephalic - Eye Eye exam: Present: PERRL, conjuntiva pink, sclera anicteric - Neck Neck exam general surgery: Present: supple, trachea midline. Absent: lymphadenopathy - Respiratory Respiratory exam: Present: CTAB, wheezes (mild b/l upper lobes). Absent: accessory muscle use, rales, rhonchi - Cardiovascular Cardiovascular exam: Present: RRR, +S1, +S2. Absent: diastolic murmur, gallop, rubs, systolic murmur - GI/Abdominal GI/Abdominal exam: Present: normal bowel sounds, soft, no peritoneal signs. Absent: distended, tenderness - Extremities Exam Extremities exam: Present: warm, radial pulses palpable and symetrical. Absent : calf tenderness, cyanotic, pedal edema - Neurological Exam Neurological exam: Present: alert, CN II-XII intact, no focal deficits. Absent : pronater drift, facial droop, speech deficit - Skin Skin exam: Present: dry, intact <Nathaniel Wooten - Last Filed: 07/27/16 09:35> Date of Encounter: 07/27/16 Procedures/tests Complete & Pending: Procedures Performed prior 72 hours Category Date Time Status EV echocardiogram Routine Y 07/24/16 15:32 Completed Date of admission: 07/23/16 04:53 Primary care physician: Jeff Castaneda MD Consults: 07/23/16 08:09 Consult to Occupational Therapy [CONS] Routine Comment: Evaluate, develop and implement POC Consult to Physical Therapy [CONS] Routine Comment: Evaluate, develop and implement POC 07/23/16 15:31 Consult to Cardiology [CONS] Routine Comment: Consulting Provider: Cardiology Beth Reason for Consult: NSTEMI Time Notified: 11:00 Call Completed: Yes 07/23/16 20:13 Consult to Speech Therapy [CONS] Routine Comment: Evaluate, develop and implement POC Reason for Consult: Patient was [place] thickened at SNF before admissionl, decline in mental status Call Completed: No 07/24/16 18:33 Consult to [employer] Specialist [CONS] Routine Reason for SW Consult: Pt from [facility] 07/25/16 14:58 Consult to Palliative Care [CONS] Routine Comment: goals of care Consulting Provider: Palliative Care Almond 07/26/16 13:43 Consult to Oncology Hematology [CONS] Stat Consulting Provider: Jessa Gutiérrez Reason for Consult: old pt for anemia now with suspecious lesions on ct please eval Time Notified: 13:44 Call Completed: Yes Hospital course: Ms. Khalil is a 81 year old female - Time Spent with Patient Total time spent providing and/or coordinating discharge services: - Constitutional Vitals: Temp Pulse Resp BP Pulse Ox 98.3 F 87 20 160/61 99 07/27/16 06:47 07/27/16 06:47 07/27/16 07:47 07/27/16 06:47 07/27/16 07:47 - Attending Attestation time spent : 40 min 1. Acute metabolic encephalopathy likely secondary to sepsis from urinary tract infection with Escherichia coli resistant only to ampicillin Improving Continue ceftriaxone day 5 Metabolic encephalopathy likely secondary also to polypharmacy she was taking lorazepam, [place], Propine, Zoloft and tramadol with underlying dementia 2. Non-STEMI, most likely demand ischemia Heparin drip was discontinued Troponin peaked at 0.56. EKG showed no acute ischemic changes. Cardiology consulted which recommended only medical management for now. Patient not candidate for any intervention given comorbidities. Received heparin drip for 48 hours. Aspirin. Plavix. Statins. Imdur. Toprol. 07/25/16: Echocardiogram LVEF 40-45%, mild segmental LV systolic dysfunction. 01/2016: Heart catheterization revealed occluded prox RCA with mature left-to- right collaterals filling the PDA. Intermediate 50-60% mid LAD stenosis. Mildly to mildly elevated LVEDP. 3. Newly diagnosed systolic heart failure likely secondary to ischemia/non- STEMI. Ejection fraction of 40-45%. Continue Lasix IV Hypokalemia exacerbated by Lasix Replete as needed 4. COPD, not exacerbation 5. Recent pelvic fracture, followed as an outpatient 6. Lung nodules, follow-up as an outpatient CT of the chest reveal a 1.4 cm lobulated nodule in the left apex, unchanged several areas of groundglass opacity in both lungs. The largest is 1.6 cm in RUL and could represent metastatic disease vs inflammatory or infectious. 7. Chronic pain syndrome, Dr. Singh recommended switching to amitriptyline and tapering down Zoloft. 8. Yeast /vaginal infection . Give fluconazole 150 mg once ( vaginal erythema) excruciating pelvic pain I examined this patient and my medical decision-making was reviewed with the MOVIE SHOT CAMERA OPERATOR/PA/Advanced Practice Nurse/Resident Physician. I agree with the documented findings, disposition and treatment plan as described except to the extent set forth below.
[2016-07-27] MEDS ORDERED: *HR* OxyCODONE Immed Rel 5 MG TABLET PO PRN (08:51)
[2016-07-27] MEDS ORDERED: Aspirin Enteric Coated 81 MG Tablet PO SCH (09:00)
--- NOTE | 2016-07-27 09:30 | Physician Discharge Referral ---
<Maco Anderson - Last Filed: 07/27/16 09:27> [facility] Referral Info Transfer To: SNF Provider in Charge: Dr. Best Provider in Charge after Transfer: PCP Institutional Level of Care: Skilled - Diagnosis (1) Acute metabolic encephalopathy Priority: Primary Status: Acute (2) NSTEMI (non-ST elevated myocardial infarction) Priority: Secondary Status: Acute (3) Lung nodule Priority: Secondary Status: Acute (4) Acute CHF (congestive heart failure) Priority: Secondary Status: Acute (5) Urinary tract infection Priority: Secondary Status: Acute (6) Hypokalemia Priority: Secondary Status: Acute (7) Chronic pain syndrome Priority: Secondary Status: Chronic (8) COPD (chronic obstructive pulmonary disease) Priority: Secondary Status: Chronic Prognosis: Fair Aware of Diagnosis: Family Aware of Prognosis: Family - Transfer Medications Prescriptions: OxyCODONE Immed Rel [Roxicodone 5 MG] 5 mg PO Q3H PRN #240 tablet PRN Reason: Pain Home Medications: Budesonide/Formoterol 160/4.5 [Symbicort] 2 puff IH BID 02/20/15 [History] Clopidogrel [Plavix] 75 mg PO DAILY 02/20/15 [History] Tiotropium [Spiriva] 18 mcg IH DAILY 02/20/15 [History] Donepezil [Aricept] 10 mg PO HS 04/03/15 [History] Alendronate Sodium [Fosamax] 70 mg PO MO 07/09/15 [History] Ascorbate Calcium [Vitamin C] 500 mg PO DAILY 07/09/15 [History] Aspirin [Adult Low Dose Aspirin EC] 81 mg PO DAILY 07/09/15 [History] Calcium Carbonate/Vitamin D3 [Calcium 500-Vit D3 400 Tablet] 1 tab PO DAILY 04/13 [History] Ferrous Sulfate 325 mg PO DAILY 07/09/15 [History] Isosorbide MONOnitrate (24 HR) [Imdur] 60 mg PO DAILY 07/09/15 [History] Losartan [Cozaar] 100 mg PO DAILY 07/09/15 [History] Metoprolol XL (24 HR) Succ [Toprol Xl] 25 mg PO DAILY 07/09/15 [History] Simvastatin [Zocor] 20 mg PO QPM 07/09/15 [History] Hydralazine HCl 50 mg PO TID 11/27/15 [History] Cholecalciferol (D-3) [Vitamin D] 1,000 unit PO DAILY 02/22/16 [History] Nitroglycerin [Nitrostat] 0.4 mg SL PRN PRN #30 tab.subl 02/26/16 [Rx] Albuterol Neb [Proventil Neb] 2.5 mg IH Q4HR 07/04/16 [History] LORazepam [Ativan] 1 mg PO HS #10 07/12/16 [Rx] Multivitamin [Multi-Day Vitamins] 1 tab PO DAILY 07/23/16 [History] Potassium Chloride 20 meq PO BID 07/23/16 [History] Amitriptyline [Elavil] 10 mg PO HS tablet 07/27/16 [Rx] Furosemide [Lasix] 20 mg PO BIDDIURETIC tablet 07/27/16 [Rx] OxyCODONE Immed Rel [Roxicodone 5 MG] 5 mg PO Q3H PRN #240 tablet 07/27/16 [Rx] Sertraline [Zoloft] 50 mg PO DAILY tablet 07/27/16 [Rx] Allergies/Adverse Reactions: Allergies citalopram [From Celexa] Allergy (Verified 07/22/16 23:44) Abdominal Pain haloperidol [From Haldol] Allergy (Verified 07/22/16 23:44) Hallucinating amlodipine [From Norvasc] Adverse Reaction (Verified 07/22/16 23:44) Nausea roflumilast [From Daliresp] Adverse Reaction (Verified 07/22/16 23:44) Difficulty Breathing - Respiratory Orders Oxygen / L per min (2l) Smoking Cessation: Smoking cessation has been advised. For more information, call the [place] Tobacco Quit Line at 9-756-AJWB-NOW. - Lab Orders Lab Orders: CBC, Other (include drug levels w/frequency) (BMP) - Ancillary Orders May use pressure relief devices daily prn - Advance Directives Code Status: Full Code - Mobility Orders Bedrest - Rehabiliation Orders Rehab Potential: Fair Rehab Orders: ROM Exercises, Evaluation for Physical Therapy, Evaluation for Occupational Therapy - Diet Orders Mechanical Soft (Mechanically alerted diet ground meat with nectar thickened liquids) CERTIFICATION: I certify that the transfer of the above named patient to an Extended Care Facility is necessary for the continuing treatment of the diagnosis listed. The above information is true and accurate reflection of patient's current condition. Confidential - Redisclosure prohibited without a patient's written consent. <Nathaniel Wotoen - Last Filed: 07/27/16 09:35> - Respiratory Orders Smoking Cessation: Smoking cessation has been advised. For more information, call the [place] Tobacco Quit Line at 4-789-GEVK-NOW. CERTIFICATION: I certify that the transfer of the above named patient to an Extended Care Facility is necessary for the continuing treatment of the diagnosis listed. The above information is true and accurate reflection of patient's current condition. Confidential - Redisclosure prohibited without a patient's written consent. I examined this patient and my medical decision-making was reviewed with the ELECTRONICS REPAIR TECHNICIAN/PA/Advanced Practice Nurse/Resident Physician. I agree with the documented findings, disposition and treatment plan as described except to the extent set forth below.
[2016-07-27] MEDS ORDERED: Fluconazole 100 MG TABLET PO ONE (09:32)
--- NOTE | 2016-07-27 12:39 | Oncology Inp Consult Note ---
Date of Encounter: 07/27/16 Time of Encounter: 12:00 Assessment and Plan (1) Anemia Status: Chronic Assessment and plan: Recurrent anemia, multifactorial no evidence of bone marrow pathology status post procedure in May 2016, status post iodine injection in the past, cardiomyopathy CHF, chronic kidney disease. Lung nodules imaging report reviewed in detail with the patient comparison made to 2016. We will discuss imaging in the multidisciplinary tumor board conference. Will continue follow-up with repeat imaging were suspected imaging to be discussed. I will plan of care was discussed in detail with patient and family, per Dank. She will be scheduled to receive Iron injection next week. Foollow up in clinic once diced to extended care facility Qualifiers: Anemia type: other cause Other causes of anemia: other cause, not classified Qualified Code(s): D64.89 - Other specified anemias - Data of Consult Requesting Physician: Nathaniel Wooten Primary Care Provider: Jeff Castaneda MD - Consult Narrative Reason for consult: lung nodules History of present illness: Ms. Khalil is a 81 year old female with medical history significant for anemia , status post Iron injections in 2014, status post bone marrow biopsy in July 2015 and again in May 2015 with no myelodysplastic syndrome, stainable iron has improved after iron injections in the recent bone marrow biopsy, history of chronic kidney disease, COPD, attention, hyperlipidemia, anxiety and depression hospitalization for anemia, shortness of breath in the past currently resides in a nursing facility with recent hip fracture, patient hospitalized with altered mental status status post treatment for urinary tract infection, patient underwent a CT angiogram for shortness of breath which showed pulmonary nodules in the right upper and left apex. Patient's shortness of breath is improved. She has also been seen by cardiology due to abnormal enzymes and cardiomyopathy. She has pain in the hip with movement but overall pain is better controlled, dyspnea has improved and is status is improving for family as well. Other than discomfort in the back and hips patient denies any other complaints today. Past Med Surg Social Fam HX - Past Medical History Medical history: arthritis, CHF, COPD, coronary artery disease, dementia, GERD, hyperlipidemia, hypertension, myocardial infarction, osteoporosis, peripheral artery disease, renal disease, other Psychiatric history: anxiety, depression - Past Surgical History Surgical History: cholecystectomy, hysterectomy, BHARATHI/BSO, other - Social History Smoking Status: Former smoker Smokeless Tobacco Status: No Alcohol use: none Drug use: none - Family History Father Living Status: Hx Family Cardiac Disorders: Yes Hx Family Cancer: Yes (RCC) Mother Living Status: Hx Family Cardiac Disorders: Yes Hx Family Cancer: Yes (bladder cancer) Medications and Allergies Budesonide/Formoterol 160/4.5 [Symbicort] 2 puff IH BID 02/20/15 [History] Clopidogrel [Plavix] 75 mg PO DAILY 02/20/15 [History] Tiotropium [Spiriva] 18 mcg IH DAILY 02/20/15 [History] Donepezil [Aricept] 10 mg PO HS 04/03/15 [History] Alendronate Sodium [Fosamax] 70 mg PO MO 07/09/15 [History] Ascorbate Calcium [Vitamin C] 500 mg PO DAILY 07/09/15 [History] Aspirin [Adult Low Dose Aspirin EC] 81 mg PO DAILY 07/09/15 [History] Calcium Carbonate/Vitamin D3 [Calcium 500-Vit D3 400 Tablet] 1 tab PO DAILY 04/13 [History] Ferrous Sulfate 325 mg PO DAILY 07/09/15 [History] Isosorbide MONOnitrate (24 HR) [Imdur] 60 mg PO DAILY 07/09/15 [History] Losartan [Cozaar] 100 mg PO DAILY 07/09/15 [History] Metoprolol XL (24 HR) Succ [Toprol Xl] 25 mg PO DAILY 07/09/15 [History] Simvastatin [Zocor] 20 mg PO QPM 07/09/15 [History] Hydralazine HCl 50 mg PO TID 11/27/15 [History] Cholecalciferol (D-3) [Vitamin D] 1,000 unit PO DAILY 02/22/16 [History] Nitroglycerin [Nitrostat] 0.4 mg SL PRN PRN #30 tab.subl 02/26/16 [Rx] Albuterol Neb [Proventil Neb] 2.5 mg IH Q4HR 07/04/16 [History] LORazepam [Ativan] 1 mg PO HS #10 07/12/16 [Rx] Multivitamin [Multi-Day Vitamins] 1 tab PO DAILY 07/23/16 [History] Potassium Chloride 20 meq PO BID 07/23/16 [History] Amitriptyline [Elavil] 10 mg PO HS tablet 07/27/16 [Rx] Furosemide [Lasix] 20 mg PO BIDDIURETIC tablet 07/27/16 [Rx] OxyCODONE Immed Rel [Roxicodone 5 MG] 5 mg PO Q3H PRN #240 tablet 07/27/16 [Rx] Sertraline [Zoloft] 50 mg PO DAILY tablet 07/27/16 [Rx] Allergies citalopram [From Celexa] Allergy (Verified 07/22/16 23:44) Abdominal Pain haloperidol [From Haldol] Allergy (Verified 07/22/16 23:44) Hallucinating amlodipine [From Norvasc] Adverse Reaction (Verified 07/22/16 23:44) Nausea roflumilast [From Daliresp] Adverse Reaction (Verified 07/22/16 23:44) Difficulty Breathing Review of systems: as in HPI Oncology - Exam - Constitutional Vitals: Temp Pulse Resp BP Pulse Ox 98.4 F 99 24 170/79 97 07/27/16 10:55 07/27/16 10:55 07/27/16 10:55 07/27/16 10:55 07/27/16 10:55 General appearance: mild distress, thin - Head Head exam: Present: atraumatic, normal inspection - Eye Eye exam: Present: sclera anicteric - ENT ENT exam: Present: mucous membranes dry - Neck Neck exam: Present: full ROM - Respiratory Additional comments: DANGELO AE decreased, no rhonchi - Cardiovascular Cardiovascular exam: Present: +S1, +S2 - GI/Abdominal GI/Abdominal exam: Present: normal bowel sounds, soft - Extremities Exam Additional comments: trace edema, non tender - Neurological Exam Neurological exam: Present: alert, CN II-XII intact, oriented X3 - Psychiatric Psychiatric exam: Present: normal mood - Skin Skin exam: Present: normal color, pallor Oncology - Results - Labs Labs: [facility] 07/27/16 06:08 Sodium 143 Potassium 3.2 L Chloride 112 H Carbon Dioxide 22 BUN 12 Creatinine 0.81 Glucose 80 Calcium 8.3 L Consult Discharge Plan - Plan Referrals: Jessa Gutiérrez MD [Partnered Physician] - 07/28/16 3:00 pm (Please follow up as schedule...) Jeff Castaneda MD [Primary Care Provider] - 08/03/16 3:00 pm (Follow up August 03 at 3pm with LINDA DIEHL CNP.) Prescriptions: OxyCODONE Immed Rel [Roxicodone 5 MG] 5 mg PO Q3H PRN #240 tablet PRN Reason: Pain
[2016-07-27] MEDS: *HR* HYDROcodone/Acet 7.5/325 mg TABLET PO PRN ×3 (13:25→21:38)
--- NOTE | 2016-07-27 16:03 | Palliative Progress Note ---
Date of Encounter: 07/27/16 Time of Encounter: 08:50 - Assessment and plan (1) Altered mental status Current Visit: Yes Status: Acute Assessment and plan: The patient is much more awake and alert at this time. Believe that her delirium was multifactorial including the urinary tract infection as well as the MRI but certainly medication did not play a role in it. We will be very judicious with the use of medications. The patient's pain however was not controlled well with oxycodone. Even though it should be more potent. Family requested patient be placed back on [place] but I will replace it and is 7.5 mg state. Continue to watch. Qualifiers: Altered mental status type: delirium Qualified Code(s): R41.0 - Disorientation, unspecified (2) Goals of care, counseling/discussion Current Visit: Yes Status: Acute Assessment and plan: The patient is full code. Did have a discussion with patient and her daughters they are discussing this further may be changed prior to discharge. The goal of care is for the patient to return home with her family. She still does have I believe 10 days left of the family plans to make utilize utilization of this. Social work is working on retirement as a sheet apparently either cannot go back to traditions or may not wish to. Patient will be being discharged to [facility]. CODE STATUS unchanged. (3) Cardiomyopathy Current Visit: Yes Status: Acute Assessment and plan: The patient is having no chest pain and shortness of breath or control at this time. Qualifiers: Cardiomyopathy type: unspecified Qualified Code(s): I42.9 - Cardiomyopathy , unspecified (4) Delirium Current Visit: Yes Status: Acute Assessment and plan: This is overall somewhat worse today this appears to be secondary to pain. Adjust patient's pain medications back to 7.5 mg [place] and stopped acetaminophen. s. (5) Chronic pain syndrome Current Visit: Yes Status: Chronic Assessment and plan: Add low-dose amitriptyline at night only, and decrease the Wellbutrin. Will make the [place] a little bit stronger. Continue to watch. - Time Spent With Patient Total time spent is greater than 50% in coordination of care (as documented) at patient's floor/unit and/or counseling patient: - Subjective Interval history: The patient is having more pain. The pain went up during the night last night. It is primarily in the pelvis region.. - Constitutional Vitals: Abnormal lab results RBC 2.79 M/mcL (3.82-4.97) L 07/26/16 06:10 Hgb 8.3 g/dL (11.5-15.4) L 07/26/16 06:10 Hct 27.0 % (35.3-44.9) L 07/26/16 06:10 MCHC 30.7 g/dL (31.6-35.5) L 07/26/16 06:10 RDW 16.4 % (11.5-14.5) H 07/26/16 06:10 Lymphocytes # 0.5 K/mcL (0.6-4.6) L 07/26/16 06:10 PT 14.3 Seconds (9.4-12.1) H 07/23/16 14:26 APTT 25.5 Seconds (26.0-36.0) L D 07/26/16 06:10 ABG pCO2 34 mmHg (35-45) L 07/23/16 07:55 ABG pO2 110 mmHg (85-104) H 07/23/16 07:55 ABG O2 Saturation 99 % (95-98) H 07/23/16 07:55 VBG pH 7.44 pH Units (7.32-7.42) H 07/22/16 23:48 VBG pCO2 38 mmHg (41-51) L 07/22/16 23:48 VBG pO2 50 mmHg (25-40) H 07/22/16 23:48 Potassium 3.2 mEq/L (3.5-4.5) L 07/27/16 06:08 Chloride 112 mEq/L (98-109) H 07/27/16 06:08 POC Glucose 108 (58-89) H 07/25/16 16:48 Calcium 8.3 mg/dL (8.6-10.8) L 07/27/16 06:08 Troponin I 0.41 ng/mL (0-0.03) H* 07/23/16 14:26 B-Natriuretic Peptide 472 pg/mL (0-100) H 07/22/16 23:48 Urine Clarity Cloudy (Clear) A 07/23/16 02:20 Ur Leukocyte Esterase Moderate (Negative) H 07/23/16 02:20 Urine Microscopic WBC 30-50 per hpf (0-3) H 07/23/16 02:20 Urine Bacteria Moderate per hpf (None-Few) H 07/23/16 02:20 Ur Culture Indicated? YES (NO) A 07/23/16 02:20 General appearance: Present: mild distress (Actually more moderate distress secondary to pain) - Head Head exam: Present: atraumatic, normal inspection - Eye Eye exam: Present: normal appearance - ENT ENT exam: Present: mucous membranes moist - Respiratory Respiratory exam: Present: CTAB - Cardiovascular Cardiovascular exam: Present: RRR - GI/Abdominal GI/Abdominal exam: Present: normal bowel sounds, soft. Absent: tenderness - Extremities Exam Extremities exam: Present: normal inspection, tenderness (Jose with movement.) . Absent: pedal edema - Neurological Exam Neurological exam: Present: alert - Psychiatric Psychiatric exam: Present: agitated, anxious (Agitated and anxious secondary to pain) - Skin Skin exam: Present: dry, warm Palliative Quality Palliative Quality: Screen for Code Status: Yes, Screen for Goals of Care: Yes, Screen for Pain: Yes, If Pain Regimen Started, Initiate Bowel Regimen: Yes, Screen for Nausea/Vomitting: Yes Code Status: 07/23/16 08:02 Resuscitation Status: Active [RES] Routine Comment: Resuscitation Status: Full Code - Labs CBC & Chem 7: 07/26/16 06:10 07/27/16 06:08 Labs: Laboratory Results - last 24 hr 07/27/16 06:08 Sodium 143 Potassium 3.2 L Chloride 112 H Carbon Dioxide 22 BUN 12 Creatinine 0.81 Est GFR ( Amer) > 60 Est GFR (Non-Af Amer) > 60 BUN/Creatinine Ratio 15 Glucose 80 Calculated Osmolality 295 Calcium 8.3 L - ABG Interpretation ABG results: ABG ABG pH 7.45 pH Units (7.32-7.45) 07/23/16 07:55 ABG pCO2 34 mmHg (35-45) L 07/23/16 07:55 ABG pO2 110 mmHg (85-104) H 07/23/16 07:55 ABG O2 Saturation 99 % (95-98) H 07/23/16 07:55 PT/INR, D-dimer PT 14.3 Seconds (9.4-12.1) H 07/23/16 14:26 Consult Discharge Plan - Plan Referrals: Jessa Gutiérrez MD [Partnered Physician] - 08/04/16 2:00 pm (Please follow up as schedule...) Jeff Castaneda MD [Primary Care Provider] - 08/03/16 3:00 pm (Follow up August 03 at 3pm with LINDA DIEHL CNP.) Prescriptions: OxyCODONE Immed Rel [Roxicodone 5 MG] 5 mg PO Q3H PRN #240 tablet PRN Reason: Pain
[2016-07-27] MEDS: *HR* LORazepam 1 MG TABLET PO SCH (21:38)
[2016-07-27] MEDS: Melatonin 3 MG TABLET PO SCH (21:38)
[2016-07-28] MEDS: *HR* HYDROcodone/Acet 7.5/325 mg TABLET PO PRN ×4 (00:37→20:40)
[2016-07-28] MEDS: *HR* Heparin 5,000 UNIT/ML VIAL SQ SCH (06:19)
[2016-07-28] MEDS ORDERED: *HR* LORazepam 2 MG/ML VIAL IVP ONE (06:52)
[2016-07-28] MEDS ORDERED: *HR* LORazepam 2 MG/ML VIAL ONE (06:54)
[2016-07-28 07:01] LABS: BUN/Creatinine Ratio 14 (6-26); Blood Urea Nitrogen 11 mg/dL (7-20); Calcium 8.8 mg/dL (8.6-10.8); Carbon Dioxide 23 mEq/L (19-29); Chloride 111 mEq/L (98-109); Glucose 84 mg/dL (70-99); Osmolality,Calculated 297 (280-300); Potassium 3.4 mEq/L (3.5-4.5); Sodium 144 mEq/L (136-145); eGFR For African Americans > 60 (> 60); eGFR For Non-African Americans > 60 (> 60)
[2016-07-28] MEDS: Budesonide Neb 0.5 MG/2 ML IH SCH ×2 (07:55→20:20)
[2016-07-28] MEDS: Ipratropium/Albuterol Neb 3 ML IH SCH ×3 (07:55→20:20)
--- NOTE | 2016-07-28 09:49 | Internal Med Progress Note ---
<Maco Anderson - Last Filed: 07/28/16 09:47> Date of Encounter: 07/28/16 Time of Encounter: 09:47 - Assessment and plan (1) Acute metabolic encephalopathy Current Visit: Yes Status: Acute Assessment and plan: Secondary to UTI, NSTEMI, polypharmacy (patient takes lorazepam, norco, bupropion, zoloft, and tramadol) and lung disease in the setting of mild dementia. Patient is difficult to arouse this morning. She did receive 1 dose of Ativan after becoming agitated. ABG stat, CXR stat Was on elavil, ativan, sertraline, norco. Will d/c elavil and restart bupropion 100mg BID. Possible withdrawl from tapering of psych meds. (2) NSTEMI (non-ST elevated myocardial infarction) Current Visit: No Status: Acute Assessment and plan: Troponin peaked at 0.56. EKG showed no acute ischemic changes. Continue with medical management Aspirin. Plavix. Statins. Imdur. Toprol. Echocardiogram LVEF 40-45%, mild segmental LV systolic dysfunction. Continue lasix Has hx of Heart catheterization revealed occluded prox RCA with mature left-to- right collaterals filling the PDA. Intermediate 50-60% mid LAD stenosis. Mildly to mildly elevated LVEDP. (3) Lung nodule Current Visit: Yes Status: Acute Assessment and plan: oncology following. They will discuss patents case in multidisciplinary tumor board. Patient will follow up with them after d/c. (4) Acute CHF (congestive heart failure) Current Visit: Yes Status: Acute Assessment and plan: ECHo shows LVEF 40-45%. 2nd to ischemia/non-stemi. continue lasix. Qualifiers: Congestive heart failure type: systolic Qualified Code(s): I50.21 - Acute systolic (congestive) heart failure (5) Urinary tract infection Current Visit: Yes Status: Acute Assessment and plan: 2nd to pansusceptible E coli UTI. ceftriaxone day 6. d/c ceftriaxone. WBC normal. afebrile. Qualifiers: Urinary tract infection type: acute cystitis Hematuria presence: without hematuria Qualified Code(s): N30.00 - Acute cystitis without hematuria (6) Hypokalemia Current Visit: Yes Status: Acute Assessment and plan: resolving. BMP tomorrow (7) Chronic pain syndrome Current Visit: Yes Status: Chronic Assessment and plan: secondary to right pelvis fracture 07/04. controlled with norco. (8) COPD (chronic obstructive pulmonary disease) Current Visit: No Status: Chronic Assessment and plan: Duonebs q6hr. Qualifiers: COPD type: unspecified COPD Qualified Code(s): J44.9 - Chronic obstructive pulmonary disease, unspecified - Subjective Interval history: Patient was sleeping when I entered the room. She received Ativan this morning for agitation. Patient was difficult to arouse. When trying to wake her up she displayed chorea like movements. - Constitutional Vitals: Temp Pulse Resp BP Pulse Ox 98.0 F 92 16 153/68 100 07/28/16 08:08 07/28/16 08:08 07/28/16 08:08 07/28/16 08:08 07/28/16 08:08 General appearance: Present: A&O X 0 (patient is asleep. recently given ativan. ) - Respiratory Respiratory exam: Present: CTAB. Absent: accessory muscle use, rales, rhonchi, wheezes - GI/Abdominal GI/Abdominal exam: Present: normal bowel sounds, soft, no peritoneal signs. Absent: distended, tenderness Additional comments: umbilical hernia - External exam: Present: erythema - Extremities Exam Extremities exam: Present: warm, radial pulses palpable and symetrical. Absent : calf tenderness, cyanotic, pedal edema Internal Medicine: Result - Labs CBC & Chem 7: 07/26/16 06:10 07/28/16 05:34 Labs: BMP 07/28/16 05:34 Sodium 144 Potassium 3.4 L Chloride 111 H Carbon Dioxide 23 BUN 11 Creatinine 0.77 Glucose 84 Calcium 8.8 - ABG Interpretation ABG results: ABG ABG pH 7.45 pH Units (7.32-7.45) 07/23/16 07:55 ABG pCO2 34 mmHg (35-45) L 07/23/16 07:55 ABG pO2 110 mmHg (85-104) H 07/23/16 07:55 ABG O2 Saturation 99 % (95-98) H 07/23/16 07:55 PT/INR, D-dimer PT 14.3 Seconds (9.4-12.1) H 07/23/16 14:26 - Impressions Impressions Pelvis CT 07/27/16 18:00 IMPRESSION: Fractures of both superior and inferior pubic rami as described above. Right sacral wing insufficiency fracture. 6.6 cm fluid collection lateral to the right hip most consistent with a hematoma D/ / Mayito Jiménez MD / Mayito Jiménez MD Interpreting Provider: Mayito Jiménez MD - Diagnostic Studies CT scan - pelvis Status: image reviewed by me (stable pelvic fracture and possible developing hematoma ) Consult Discharge Plan - Plan Referrals: Jessa Gutiérrez MD [Partnered Physician] - 08/04/16 2:00 pm (Please follow up as schedule...) Jeff Castaneda MD [Primary Care Provider] - 08/03/16 3:00 pm (Follow up August 03 at 3pm with LINDA DIEHL CNP.) Prescriptions: OxyCODONE Immed Rel [Roxicodone 5 MG] 5 mg PO Q3H PRN #240 tablet PRN Reason: Pain <Nathaniel Wooten H - Last Filed: 07/28/16 10:20> Date of Encounter: 07/28/16 - Constitutional Vitals: Temp Pulse Resp BP Pulse Ox 98.0 F 92 16 153/68 100 07/28/16 08:08 07/28/16 08:08 07/28/16 08:08 07/28/16 08:08 07/28/16 08:08 Internal Medicine: Result - Labs CBC & Chem 7: 07/26/16 06:10 07/28/16 05:34 Labs: BMP 07/28/16 05:34 Sodium 144 Potassium 3.4 L Chloride 111 H Carbon Dioxide 23 BUN 11 Creatinine 0.77 Glucose 84 Calcium 8.8 - ABG Interpretation ABG results: ABG ABG pH 7.45 pH Units (7.32-7.45) 07/23/16 07:55 ABG pCO2 34 mmHg (35-45) L 07/23/16 07:55 ABG pO2 110 mmHg (85-104) H 07/23/16 07:55 ABG O2 Saturation 99 % (95-98) H 07/23/16 07:55 PT/INR, D-dimer PT 14.3 Seconds (9.4-12.1) H 07/23/16 14:26 - Impressions Impressions Pelvis CT 07/27/16 18:00 IMPRESSION: Fractures of both superior and inferior pubic rami as described above. Right sacral wing insufficiency fracture. 6.6 cm fluid collection lateral to the right hip most consistent with a hematoma D/ / Mayito Jiménez MD / Mayito Jiménez MD Interpreting Provider: Mayito Jiménez MD - Attending Attestation Acute delirium/acute metabolic encephalopathy, consider possible etiology: either SSRI withdrawal or due to Ativan administration. The patient also is wheezing mainly on the left lower lung. Order chest x-ray, an ABG Coronary urinalyses. Stop amitriptyline, resume Wellbutrin Follow-up precautions CT scan of the pelvis shows fractures of both superior and inferior pubic ramus , right sacral wing insufficiency fracture and also a 6.6 cm fluid collection lateral to the right hip most consistent with a hematoma. Hold aspirin, Plavix , discontinue subcutaneous heparin I examined this patient and my medical decision-making was reviewed with the DENTAL TECHNICIAN/PA/Advanced Practice Nurse/Resident Physician. I agree with the documented findings, disposition and treatment plan as described except to the extent set forth below.
[2016-07-28 10:34] LABS: ABG Base Excess -0.4 mEq/L (-2.0 to 3.0); ABG HCO3 24.1 mEQ/L (21-27); ABG Oxygen Saturation 98 % (95-98); ABG PCO2 38 mmHg (35-45); ABG PH 7.41 pH Units (7.32-7.45); ABG PO2 97 mmHg (85-104); ABG TCO2 25.3 mEq/L (20-26); Blood Gas FiO2 28 %
[2016-07-28] MEDS: BuPROPion SR (12 HR) 100 MG TABLET PO SCH ×2 (10:37→20:39)
[2016-07-28] MEDS: Isosorbide MONOnitrate (24 HR) 60 MG TAB.ER.24H PO SCH (10:40)
[2016-07-28] MEDS: Metoprolol XL (24 HR) Succ 25 MG TAB.ER.24H PO SCH (10:40)
[2016-07-28] MEDS: Furosemide 20 MG TABLET PO SCH ×2 (10:40→18:13)
--- NOTE | 2016-07-28 11:45 | Palliative Progress Note ---
Date of Encounter: 07/28/16 Time of Encounter: 09:15 - Assessment and plan (1) Altered mental status Current Visit: Yes Status: Acute Assessment and plan: The patient is sleeping and was apparently somewhat agitated this morning. Per the nursing staff and had done well yesterday afternoon and overnight. The [place] seems be working well for her. She did require milligram Ativan this morning.. Qualifiers: Altered mental status type: delirium Qualified Code(s): R41.0 - Disorientation, unspecified (2) Goals of care, counseling/discussion Current Visit: Yes Status: Acute Assessment and plan: The patient is full code. Did have a discussion with patient and her daughters they are discussing this further may be changed prior to discharge. The goal of care is for the patient to return home with her family. She still does have I believe 10 days left of the family plans to make utilize utilization of this. Social work is working on care home as a sheet apparently either cannot go back to traditions or may not wish to. Patient will be being discharged to [facility]. CODE STATUS unchanged. Family present thus far today, no changes. (3) Cardiomyopathy Current Visit: Yes Status: Acute Assessment and plan: The patient is having no chest pain and shortness of breath or control at this time. Qualifiers: Cardiomyopathy type: unspecified Qualified Code(s): I42.9 - Cardiomyopathy , unspecified (4) Delirium Current Visit: Yes Status: Acute Assessment and plan: This is overall somewhat worse today this appears to be secondary to pain. Adjust patient's pain medications back to 7.5 mg [place] and stopped acetaminophen. Patient was agitated this morning did require 1 mg Ativan. She is sleeping at this time.. (5) Chronic pain syndrome Current Visit: Yes Status: Chronic Assessment and plan: Add low-dose amitriptyline at night only, and decrease the Wellbutrin. Will make the [place] a little bit stronger. Continue to watch. Changes today. - Time Spent With Patient Total time spent is greater than 50% in coordination of care (as documented) at patient's floor/unit and/or counseling patient: - Subjective Interval history: The patient was stable during the night per the nursing report, however this morning having more agitation I did prescribe 1 mg of Ativan earlier today. Patient is now asleep from this. The nursing staff the increased dose of [place] seemed to be working well for her. - Constitutional Vitals: Abnormal lab results RBC 2.79 M/mcL (3.82-4.97) L 07/26/16 06:10 Hgb 8.3 g/dL (11.5-15.4) L 07/26/16 06:10 Hct 27.0 % (35.3-44.9) L 07/26/16 06:10 MCHC 30.7 g/dL (31.6-35.5) L 07/26/16 06:10 RDW 16.4 % (11.5-14.5) H 07/26/16 06:10 Lymphocytes # 0.5 K/mcL (0.6-4.6) L 07/26/16 06:10 PT 14.3 Seconds (9.4-12.1) H 07/23/16 14:26 APTT 25.5 Seconds (26.0-36.0) L D 07/26/16 06:10 VBG pH 7.44 pH Units (7.32-7.42) H 07/22/16 23:48 VBG pCO2 38 mmHg (41-51) L 07/22/16 23:48 VBG pO2 50 mmHg (25-40) H 07/22/16 23:48 Potassium 3.4 mEq/L (3.5-4.5) L 07/28/16 05:34 Chloride 111 mEq/L (98-109) H 07/28/16 05:34 POC Glucose 108 (58-89) H 07/25/16 16:48 Troponin I 0.41 ng/mL (0-0.03) H* 07/23/16 14:26 B-Natriuretic Peptide 472 pg/mL (0-100) H 07/22/16 23:48 Urine Clarity Cloudy (Clear) A 07/23/16 02:20 Ur Leukocyte Esterase Moderate (Negative) H 07/23/16 02:20 Urine Microscopic WBC 30-50 per hpf (0-3) H 07/23/16 02:20 Urine Bacteria Moderate per hpf (None-Few) H 07/23/16 02:20 Ur Culture Indicated? YES (NO) A 07/23/16 02:20 General appearance: Present: no acute distress - Head Head exam: Present: atraumatic, normal inspection - Eye Eye exam: Present: normal appearance - Respiratory Respiratory exam: Present: decreased breath sounds - Cardiovascular Cardiovascular exam: Present: RRR - GI/Abdominal GI/Abdominal exam: Present: normal bowel sounds, soft. Absent: tenderness - Extremities Exam Extremities exam: Present: normal inspection. Absent: pedal edema, tenderness ( Not attempt to move legs. Patient sleeping) - Neurological Exam Neurological exam: Present: altered (The being and just recently medicated.) - Psychiatric Psychiatric exam: Absent: agitated, anxious (Low she had been agitated earlier.) - Skin Skin exam: Present: dry, warm Palliative Quality Palliative Quality: Screen for Code Status: Yes, Screen for Goals of Care: Yes, Screen for Pain: Yes, If Pain Regimen Started, Initiate Bowel Regimen: Yes, Screen for Nausea/Vomitting: Yes Code Status: 07/23/16 08:02 Resuscitation Status: Active [RES] Routine Comment: Resuscitation Status: Full Code - Labs CBC & Chem 7: 07/26/16 06:10 07/28/16 05:34 Labs: Laboratory Results - last 24 hr 07/28/16 07/28/16 05:34 10:09 ABG pH 7.41 ABG pCO2 38 ABG pO2 97 ABG HCO3 24.1 ABG Total CO2 25.3 ABG O2 Saturation 98 ABG Base Excess -0.4 Blood Gas Modality NC Inspired O2 28 Sodium 144 Potassium 3.4 L Chloride 111 H Carbon Dioxide 23 BUN 11 Creatinine 0.77 Est GFR ( Amer) > 60 Est GFR (Non-Af Amer) > 60 BUN/Creatinine Ratio 14 Glucose 84 Calculated Osmolality 297 Calcium 8.8 - Impressions Impressions Pelvis CT 07/27/16 18:00 IMPRESSION: Fractures of both superior and inferior pubic rami as described above. Right sacral wing insufficiency fracture. 6.6 cm fluid collection lateral to the right hip most consistent with a hematoma D/ / Mayito Jiménez MD / Mayito Jiménez MD Interpreting Provider: Mayito Jiménez MD Chest X-Ray 07/28/16 10:15 IMPRESSION: Rotated exam. Questionable right upper lobe infiltrate. Otherwise stable chest. D/ / Rusty Harris MD / Rusty Harris MD Interpreting Provider: Rusty Harris MD - ABG Interpretation ABG results: ABG ABG pH 7.41 pH Units (7.32-7.45) 07/28/16 10:09 ABG pCO2 38 mmHg (35-45) 07/28/16 10:09 ABG pO2 97 mmHg (85-104) 07/28/16 10:09 ABG O2 Saturation 98 % (95-98) 07/28/16 10:09 PT/INR, D-dimer PT 14.3 Seconds (9.4-12.1) H 07/23/16 14:26 Consult Discharge Plan - Plan Referrals: Jessa Gutiérrez MD [Partnered Physician] - 08/04/16 2:00 pm (Please follow up as schedule...) Jeff Castaneda MD [Primary Care Provider] - 08/03/16 3:00 pm (Follow up August 03 at 3pm with LINDA DIEHL CNP.) Prescriptions: OxyCODONE Immed Rel [Roxicodone 5 MG] 5 mg PO Q3H PRN #240 tablet PRN Reason: Pain
[2016-07-28] MEDS: Levofloxacin 750 MG/150 ML 750 MG/150 ML BAG IVPB SCH (11:54)
[2016-07-28] MEDS ORDERED: *HR* Morphine 2 MG/ML SYRINGE IV ONE (13:38)
[2016-07-28] MEDS ORDERED: *HR* Morphine 2 MG/ML SYRINGE IV PRN (13:44)
[2016-07-28 13:45] LABS: Basophils % 0.5 %; Eosinophils # 0.2 K/mcL (0.0-0.6); Eosinophils % 2.6 %; Hematocrit 29.7 % (35.3-44.9); Immature Granulocytes % 0.6 % (0-4); Lymphocytes # 0.6 K/mcL (0.6-4.6); Lymphocytes % 7.3 %; Mean Corpuscular HGB Conc 30.3 g/dL (31.6-35.5); Mean Corpuscular Hemoglobin 29.9 pg (28.0-33.3); Mean Corpuscular Volume 98.7 fL (83.0-100.0); Mean Platelet Volume 9.7 fL (9.4-12.4); Monocytes # 0.7 K/mcL (0.0-1.3); Monocytes % 8.4 %; Neutrophils # 6.4 K/mcL (1.6-8.9); Platelet Count 297 K/mcL (140-400); Red Blood Count 3.01 M/mcL (3.82-4.97); Red Cell Distribution Width 16.2 % (11.5-14.5); Segmented Neutrophils % 80.6 %
[2016-07-28 13:57] LABS: Albumin 2.3 g/dL (3.5-5.0); Albumin/Globulin Ratio 0.7 (1.1-2.2); Bilirubin,Direct 0.2 mg/dL (0.0-0.5); Bilirubin,Indirect 0.2 mg/dL (0.0-1.2); Bilirubin,Total 0.4 mg/dL (0.2-1.2); Globulin 3.4 g/dL (2.4-3.5); Total Protein 5.7 g/dL (6.0-8.3)
--- NOTE | 2016-07-28 15:22 | Event Note ---
Date of Encounter: 07/28/16 Time of Encounter: 15:21 Discussed with patient's family, after they had discussions amongst themselves they have decided the patient should be DNR CCA, DNI. This order was then placed.
[2016-07-28] MEDS: Cefepime HCl 1,000 MG in D5% in Water (Mini-Bag+) 100 ML IVPB SCH (18:13)
[2016-07-28] MEDS: *HR* LORazepam 1 MG TABLET PO SCH (20:39)
[2016-07-28] MEDS: Melatonin 3 MG TABLET PO SCH (20:40)
[2016-07-28] MEDS: Sennosides/Docusate Sodium TABLET PO PRN (20:40)
[2016-07-28] MEDS: *HR* Morphine 2 MG/ML SYRINGE IV PRN (21:58)
[2016-07-29] MEDS: *HR* HYDROcodone/Acet 7.5/325 mg TABLET PO PRN ×7 (05:35→21:20)
[2016-07-29] MEDS: Cefepime HCl 1,000 MG in D5% in Water (Mini-Bag+) 100 ML IVPB SCH ×2 (05:39→18:10)
[2016-07-29 06:04] LABS: Hematocrit 29.1 % (35.3-44.9); Hemoglobin 8.9 g/dL (11.5-15.4); Mean Corpuscular HGB Conc 30.6 g/dL (31.6-35.5); Mean Corpuscular Hemoglobin 30.1 pg (28.0-33.3); Mean Corpuscular Volume 98.3 fL (83.0-100.0); Mean Platelet Volume 10.1 fL (9.4-12.4); Platelet Count 281 K/mcL (140-400); Red Blood Count 2.96 M/mcL (3.82-4.97); Red Cell Distribution Width 16.2 % (11.5-14.5)
[2016-07-29 06:24] LABS: BUN/Creatinine Ratio 14 (6-26); Blood Urea Nitrogen 12 mg/dL (7-20); Calcium 8.7 mg/dL (8.6-10.8); Carbon Dioxide 24 mEq/L (19-29); Chloride 111 mEq/L (98-109); Glucose 84 mg/dL (70-99); Osmolality,Calculated 301 (280-300); Potassium 3.4 mEq/L (3.5-4.5); Sodium 146 mEq/L (136-145); eGFR For African Americans > 60 (> 60); eGFR For Non-African Americans > 60 (> 60)
[2016-07-29] MEDS: Ipratropium/Albuterol Neb 3 ML IH SCH ×3 (07:49→20:24)
[2016-07-29] MEDS: Budesonide Neb 0.5 MG/2 ML IH SCH ×2 (07:49→20:24)
[2016-07-29] MEDS: Isosorbide MONOnitrate (24 HR) 60 MG TAB.ER.24H PO SCH (08:19)
[2016-07-29] MEDS: BuPROPion SR (12 HR) 100 MG TABLET PO SCH ×2 (08:19→21:18)
[2016-07-29] MEDS: Levofloxacin 750 MG/150 ML 750 MG/150 ML BAG IVPB SCH (08:20)
[2016-07-29] MEDS: Furosemide 20 MG TABLET PO SCH ×2 (08:20→18:09)
[2016-07-29] MEDS: Metoprolol XL (24 HR) Succ 25 MG TAB.ER.24H PO SCH (08:20)
[2016-07-29] MEDS: Magnesium Oxide 400 MG TABLET PO SCH (10:59)
--- NOTE | 2016-07-29 13:33 | Palliative Progress Note ---
Date of Encounter: 07/29/16 Time of Encounter: 09:20 - Assessment and plan (1) Altered mental status Current Visit: Yes Status: Acute Assessment and plan: The patient is awake and alert at this time. Mental status appears to be normal. Changes today. Patient may be going out soon.. Qualifiers: Altered mental status type: delirium Qualified Code(s): R41.0 - Disorientation, unspecified (2) Goals of care, counseling/discussion Current Visit: Yes Status: Acute Assessment and plan: The patient is now DNR a DNI. Stressed with patient and family yesterday and this Decision made to make her DNR a DNI. In is for the patient to return to [facility] for finishing out rehabilitation. Then to return to the home. Start possibility is early as today. (3) Cardiomyopathy Current Visit: Yes Status: Acute Assessment and plan: The patient is having no chest pain and shortness of breath or control at this time. Qualifiers: Cardiomyopathy type: unspecified Qualified Code(s): I42.9 - Cardiomyopathy , unspecified (4) Delirium Current Visit: Yes Status: Acute Assessment and plan: This is overall greatly improved over the last several days. No changes in medications today... (5) Chronic pain syndrome Current Visit: Yes Status: Chronic Assessment and plan: Add low-dose amitriptyline at night only, and decrease the Wellbutrin. Will make the Cassel a little bit stronger. Continue to watch. No changes today. (6) Itch Current Visit: Yes Status: Acute Assessment and plan: Right forearm volar surface. Does not seem to have any rash associated with it but has been causing great deal of itch do not wish to use any systemic itch medications as these will affect her sensorium and her delirium. Will use 2% hydrocortisone cream. - Time Spent With Patient Total time spent is greater than 50% in coordination of care (as documented) at patient's floor/unit and/or counseling patient: - Subjective Interval history: The patient was stable during the night per the nursing report, she is awake alert and appropriate at this time. She is complaining about arm itch. This is on the right side. - Constitutional Vitals: Abnormal lab results RBC 2.96 M/mcL (3.82-4.97) L 07/29/16 05:33 Hgb 8.9 g/dL (11.5-15.4) L 07/29/16 05:33 Hct 29.1 % (35.3-44.9) L 07/29/16 05:33 MCHC 30.6 g/dL (31.6-35.5) L 07/29/16 05:33 RDW 16.2 % (11.5-14.5) H 07/29/16 05:33 PT 14.3 Seconds (9.4-12.1) H 07/23/16 14:26 APTT 25.5 Seconds (26.0-36.0) L D 07/26/16 06:10 VBG pH 7.44 pH Units (7.32-7.42) H 07/22/16 23:48 VBG pCO2 38 mmHg (41-51) L 07/22/16 23:48 VBG pO2 50 mmHg (25-40) H 07/22/16 23:48 Sodium 146 mEq/L (136-145) H 07/29/16 05:33 Potassium 3.4 mEq/L (3.5-4.5) L 07/29/16 05:33 Chloride 111 mEq/L (98-109) H 07/29/16 05:33 POC Glucose 95 (58-89) H 07/28/16 10:03 Calculated Osmolality 301 (280-300) H 07/29/16 05:33 Ammonia 16 mcmol/L (18-72) L 07/28/16 13:33 Troponin I 0.41 ng/mL (0-0.03) H* 07/23/16 14:26 B-Natriuretic Peptide 472 pg/mL (0-100) H 07/22/16 23:48 Serum Total Protein 5.7 g/dL (6.0-8.3) L 07/28/16 13:33 Albumin 2.3 g/dL (3.5-5.0) L 07/28/16 13:33 Albumin/Globulin Ratio 0.7 (1.1-2.2) L 07/28/16 13:33 Urine Clarity Cloudy (Clear) A 07/23/16 02:20 Ur Leukocyte Esterase Moderate (Negative) H 07/23/16 02:20 Urine Microscopic WBC 30-50 per hpf (0-3) H 07/23/16 02:20 Urine Bacteria Moderate per hpf (None-Few) H 07/23/16 02:20 Ur Culture Indicated? YES (NO) A 07/23/16 02:20 General appearance: Present: no acute distress - Head Head exam: Present: atraumatic, normal inspection - Eye Eye exam: Present: normal appearance - ENT ENT exam: Present: mucous membranes moist - Respiratory Respiratory exam: Present: decreased breath sounds - Cardiovascular Cardiovascular exam: Present: RRR - GI/Abdominal GI/Abdominal exam: Present: normal bowel sounds, soft. Absent: tenderness - Extremities Exam Extremities exam: Present: normal inspection. Absent: pedal edema, tenderness ( Is excoriation noted on the right forearm on the volar surface.) - Neurological Exam Neurological exam: Present: alert - Psychiatric Psychiatric exam: Present: normal affect, normal mood. Absent: agitated, anxious - Skin Skin exam: Present: dry, warm. Absent: rash (Is no rash noted on the right forearm, however the patient has been scratching it a fair amount. In there is excoriation is noted.) Palliative Quality Palliative Quality: Screen for Code Status: Yes, Screen for Goals of Care: Yes, Screen for Pain: Yes, If Pain Regimen Started, Initiate Bowel Regimen: Yes, Screen for Nausea/Vomitting: Yes Code Status: 07/23/16 08:02 Resuscitation Status: Active [RES] Routine Comment: Resuscitation Status: Full Code Resuscitation Status: Active [RES] Routine Comment: Resuscitation Status: [id number] - Labs CBC & Chem 7: 07/29/16 05:33 07/29/16 05:33 Labs: Laboratory Results - last 24 hr 07/28/16 07/28/16 07/28/16 10:03 13:33 13:33 WBC 8.0 RBC 3.01 L Hgb 9.0 L Hct 29.7 L MCV 98.7 MCH 29.9 MCHC 30.3 L RDW 16.2 H Plt Count 297 MPV 9.7 Immature Gran % 0.6 Seg Neutrophils % 80.6 Lymphocytes % 7.3 Monocytes % 8.4 Eosinophils % 2.6 Basophils % 0.5 Neutrophils # 6.4 Lymphocytes # 0.6 Monocytes # 0.7 Eosinophils # 0.2 Basophils # 0.0 Sodium Potassium Chloride Carbon Dioxide BUN Creatinine Est GFR ( Amer) Est GFR (Non-Af Amer) BUN/Creatinine Ratio Glucose POC Glucose 95 H Calculated Osmolality Lactic Acid 0.9 Calcium Total Bilirubin Direct Bilirubin Indirect Bilirubin AST ALT Alkaline Phosphatase Ammonia Serum Total Protein Albumin Globulin Albumin/Globulin Ratio 07/28/16 07/28/16 07/29/16 13:33 13:33 05:33 WBC 6.3 RBC 2.96 L Hgb 8.9 L Hct 29.1 L MCV 98.3 MCH 30.1 MCHC 30.6 L RDW 16.2 H Plt Count 281 MPV 10.1 Immature Gran % Seg Neutrophils % Lymphocytes % Monocytes % Eosinophils % Basophils % Neutrophils # Lymphocytes # Monocytes # Eosinophils # Basophils # Sodium Potassium Chloride Carbon Dioxide BUN Creatinine Est GFR ( Amer) Est GFR (Non-Af Amer) BUN/Creatinine Ratio Glucose POC Glucose Calculated Osmolality Lactic Acid Calcium Total Bilirubin 0.4 Direct Bilirubin 0.2 Indirect Bilirubin 0.2 AST 18 ALT 13 Alkaline Phosphatase 111 Ammonia 16 L Serum Total Protein 5.7 L Albumin 2.3 L Globulin 3.4 Albumin/Globulin Ratio 0.7 L 07/29/16 05:33 WBC RBC Hgb Hct MCV MCH MCHC RDW Plt Count MPV Immature Gran % Seg Neutrophils % Lymphocytes % Monocytes % Eosinophils % Basophils % Neutrophils # Lymphocytes # Monocytes # Eosinophils # Basophils # Sodium 146 H Potassium 3.4 L Chloride 111 H Carbon Dioxide 24 BUN 12 Creatinine 0.83 Est GFR ( Amer) > 60 Est GFR (Non-Af Amer) > 60 BUN/Creatinine Ratio 14 Glucose 84 POC Glucose Calculated Osmolality 301 H Lactic Acid Calcium 8.7 Total Bilirubin Direct Bilirubin Indirect Bilirubin AST ALT Alkaline Phosphatase Ammonia Serum Total Protein Albumin Globulin Albumin/Globulin Ratio - ABG Interpretation ABG results: ABG ABG pH 7.41 pH Units (7.32-7.45) 07/28/16 10:09 ABG pCO2 38 mmHg (35-45) 07/28/16 10:09 ABG pO2 97 mmHg (85-104) 07/28/16 10:09 ABG O2 Saturation 98 % (95-98) 07/28/16 10:09 PT/INR, D-dimer PT 14.3 Seconds (9.4-12.1) H 07/23/16 14:26 Consult Discharge Plan - Plan Referrals: Jessa Gutiérrez MD [Partnered Physician] - 08/04/16 2:00 pm (Please follow up as schedule...) Jeff Castaneda MD [Primary Care Provider] - 08/03/16 3:00 pm (Follow up August 03 at 3pm with LINDA IDEHL CNP.) Prescriptions: OxyCODONE Immed Rel [Roxicodone 5 MG] 5 mg PO Q3H PRN #240 tablet PRN Reason: Pain
[2016-07-29] MEDS: levoFLOXacin 500 MG TABLET PO SCH (14:53)
--- NOTE | 2016-07-29 15:06 | Internal Med Progress Note ---
<Maco Anderson - Last Filed: 07/29/16 15:02> Date of Encounter: 07/29/16 Time of Encounter: 15:03 - Assessment and plan (1) Acute metabolic encephalopathy Current Visit: Yes Status: Acute Assessment and plan: Secondary to UTI, NSTEMI, polypharmacy (patient takes lorazepam, norco, bupropion, zoloft, and tramadol) and lung disease in the setting of mild dementia. Yesterday patient was severely agitated. CXR showed possible right upper lobe pneumonia. Started on cefipime and levaquin day 2. Patient is alert oriented x3. unknown if change in mental status due to starting antibiotics for pneumonia, or restarting home psych medications. Continua bupropion, norco, zoloft, and lorazepam. d/c to [facility] tomorrow. (2) Pneumonia Current Visit: Yes Status: Suspected Assessment and plan: CXR shows right upper lobe opacity. possibley 2nd to e.coli cefepime and levaquin day 2 Has power glide and can continue these antibiotics at [facility] Qualifiers: Pneumonia type: due to Escherichia coli (3) NSTEMI (non-ST elevated myocardial infarction) Current Visit: Yes Status: Resolved Assessment and plan: Troponin peaked at 0.56. EKG showed no acute ischemic changes. Continue with medical management Aspirin. Plavix. Statins. Imdur. Toprol. Echocardiogram LVEF 40-45%, mild segmental LV systolic dysfunction. Continue lasix Has hx of Heart catheterization revealed occluded prox RCA with mature left-to- right collaterals filling the PDA. Intermediate 50-60% mid LAD stenosis. Mildly to mildly elevated LVEDP. (4) Lung nodule Current Visit: Yes Status: Acute Assessment and plan: oncology following. They will discuss patents case in multidisciplinary tumor board. Patient will follow up with them after d/c. (5) Acute CHF (congestive heart failure) Current Visit: Yes Status: Acute Assessment and plan: ECHo shows LVEF 40-45%. 2nd to ischemia/non-stemi. continue lasix. Qualifiers: Congestive heart failure type: systolic Qualified Code(s): I50.21 - Acute systolic (congestive) heart failure (6) Urinary tract infection Current Visit: Yes Status: Resolved Assessment and plan: 2nd to pansusceptible E coli UTI. Recived ceftriaxone 7 days. WBC normal. afebrile. Qualifiers: Urinary tract infection type: acute cystitis Hematuria presence: without hematuria Qualified Code(s): N30.00 - Acute cystitis without hematuria (7) Hypokalemia Current Visit: Yes Status: Acute Assessment and plan: resolving. BMP tomorrow (8) Chronic pain syndrome Current Visit: Yes Status: Chronic Assessment and plan: secondary to right pelvis fracture /. controlled with norco. (9) COPD (chronic obstructive pulmonary disease) Current Visit: No Status: Chronic Assessment and plan: Controlled. Denies cough, dyspnea. continue budesonide. Duonebs q6hr. Qualifiers: COPD type: unspecified COPD Qualified Code(s): J44.9 - Chronic obstructive pulmonary disease, unspecified - Subjective Interval history: Patient awake alert x3. Conversing well. NO acute problems overnight. d/c to [facility] tomorrow. - Constitutional Vitals: Temp Pulse Resp BP Pulse Ox 98.2 F 96 16 130/68 98 07/29/16 12:19 07/29/16 12:19 07/29/16 12:19 07/29/16 12:19 07/29/16 12:19 General appearance: Present: A&O X 3, answers questions appropriately - Respiratory Respiratory exam: Present: CTAB. Absent: accessory muscle use, rales, rhonchi, wheezes - Cardiovascular Cardiovascular exam: Present: RRR, +S1, +S2. Absent: diastolic murmur, gallop, rubs, systolic murmur - GI/Abdominal GI/Abdominal exam: Present: normal bowel sounds, soft, no peritoneal signs. Absent: distended, tenderness - Extremities Exam Extremities exam: Present: warm, radial pulses palpable and symetrical. Absent : calf tenderness, cyanotic, pedal edema Internal Medicine: Result - Labs CBC & Chem 7: 07/29/16 05:33 07/29/16 05:33 Labs: Short CBC 07/29/16 Range/Units 05:33 WBC 6.3 (4.3-11.1) K/mcL Hgb 8.9 L (11.5-15.4) g/dL Hct 29.1 L (35.3-44.9) % Plt Count 281 (140-400) K/mcL BMP 07/29/16 05:33 Sodium 146 H Potassium 3.4 L Chloride 111 H Carbon Dioxide 24 BUN 12 Creatinine 0.83 Glucose 84 Calcium 8.7 - ABG Interpretation ABG results: ABG ABG pH 7.41 pH Units (7.32-7.45) 07/28/16 10:09 ABG pCO2 38 mmHg (35-45) 07/28/16 10:09 ABG pO2 97 mmHg (85-104) 07/28/16 10:09 ABG O2 Saturation 98 % (95-98) 07/28/16 10:09 PT/INR, D-dimer PT 14.3 Seconds (9.4-12.1) H 07/23/16 14:26 Consult Discharge Plan - Plan Referrals: Jessa Gutiérrez MD [Partnered Physician] - 08/04/16 2:00 pm (Please follow up as schedule...) Jeff Castaneda MD [Primary Care Provider] - 08/03/16 3:00 pm (Follow up August 03 at 3pm with LINDA DIEHL CNP.) Prescriptions: Cefepime HCl/Dextrose, Iso-Osm [Cefepime 1 gm Injection] 1 gm IV BID #9 mls OxyCODONE Immed Rel [Roxicodone 5 MG] 5 mg PO Q3H PRN #240 tablet PRN Reason: Pain <Nathaniel Wooten H - Last Filed: 07/29/16 16:13> Date of Encounter: 07/29/16 - Constitutional Vitals: Temp Pulse Resp BP Pulse Ox 98.2 F 96 16 130/68 98 07/29/16 12:19 07/29/16 12:19 07/29/16 12:19 07/29/16 12:19 07/29/16 12:19 Internal Medicine: Result - Labs CBC & Chem 7: 07/29/16 05:33 07/29/16 05:33 Labs: Short CBC 07/29/16 Range/Units 05:33 WBC 6.3 (4.3-11.1) K/mcL Hgb 8.9 L (11.5-15.4) g/dL Hct 29.1 L (35.3-44.9) % Plt Count 281 (140-400) K/mcL BMP 07/29/16 05:33 Sodium 146 H Potassium 3.4 L Chloride 111 H Carbon Dioxide 24 BUN 12 Creatinine 0.83 Glucose 84 Calcium 8.7 - ABG Interpretation ABG results: ABG ABG pH 7.41 pH Units (7.32-7.45) 07/28/16 10:09 ABG pCO2 38 mmHg (35-45) 07/28/16 10:09 ABG pO2 97 mmHg (85-104) 07/28/16 10:09 ABG O2 Saturation 98 % (95-98) 07/28/16 10:09 PT/INR, D-dimer PT 14.3 Seconds (9.4-12.1) H 07/23/16 14:26 - Attending Attestation A follow-up with the likely exacerbated by gram-negative pneumonia Continue cefepime and Levaquin I examined this patient and my medical decision-making was reviewed with the TRANSFORMATION CONSULTANT/PA/Advanced Practice Nurse/Resident Physician. I agree with the documented findings, disposition and treatment plan as described except to the extent set forth below.
[2016-07-29] MEDS: Melatonin 3 MG TABLET PO SCH (21:18)
[2016-07-29] MEDS: *HR* LORazepam 1 MG TABLET PO SCH (21:18)
[2016-07-30] MEDS: *HR* Morphine 2 MG/ML SYRINGE IV PRN (01:18)
[2016-07-30] MEDS: *HR* HYDROcodone/Acet 7.5/325 mg TABLET PO PRN ×4 (04:03→18:44)
[2016-07-30] MEDS: Cefepime HCl 1,000 MG in D5% in Water (Mini-Bag+) 100 ML IVPB SCH ×2 (06:31→18:35)
[2016-07-30 07:30] LABS: BUN/Creatinine Ratio 15 (6-26); Blood Urea Nitrogen 12 mg/dL (7-20); Calcium 8.6 mg/dL (8.6-10.8); Carbon Dioxide 23 mEq/L (19-29); Chloride 111 mEq/L (98-109); Glucose 93 mg/dL (70-99); Osmolality,Calculated 293 (280-300); Potassium 3.5 mEq/L (3.5-4.5); Sodium 142 mEq/L (136-145); eGFR For African Americans > 60 (> 60); eGFR For Non-African Americans > 60 (> 60)
[2016-07-30] MEDS: Budesonide Neb 0.5 MG/2 ML IH SCH ×2 (08:07→20:33)
[2016-07-30] MEDS: Ipratropium/Albuterol Neb 3 ML IH SCH ×4 (08:09→20:32)
[2016-07-30] MEDS: Isosorbide MONOnitrate (24 HR) 60 MG TAB.ER.24H PO SCH (08:33)
[2016-07-30] MEDS: Furosemide 20 MG TABLET PO SCH ×2 (08:33→18:39)
[2016-07-30] MEDS: BuPROPion SR (12 HR) 100 MG TABLET PO SCH ×2 (08:34→20:22)
[2016-07-30] MEDS: Magnesium Oxide 400 MG TABLET PO SCH (08:34)
[2016-07-30] MEDS: Metoprolol XL (24 HR) Succ 25 MG TAB.ER.24H PO SCH (08:34)
[2016-07-30] MEDS: levoFLOXacin 500 MG TABLET PO SCH (08:35)
[2016-07-30] MEDS ORDERED: methylPREDNISolone 125 MG/2 ML VIAL IVP ONE (08:59)
--- NOTE | 2016-07-30 09:03 | Internal Med Progress Note ---
Date of Encounter: 07/30/16 Time of Encounter: 09:01 - Assessment and plan (1) Acute metabolic encephalopathy Current Visit: Yes Status: Acute Assessment and plan: Secondary to acute COPD exacerbation due to gram negative Pneumonia in combination with (multifactorial) UTI, NSTEMI, polypharmacy (patient takes lorazepam, norco, bupropion, zoloft, and tramadol) and lung disease in the setting of mild dementia. CXR showed possible right upper lobe pneumonia. Continue cefepime and levaquin day 3. Start solumedrol IV mucomyst unknown if change in mental status due to starting antibiotics for pneumonia, or restarting home psych medications. Continua bupropion, norco, zoloft, and lorazepam. Amitriptyline was discontinued, mental status improved after restarting bupropion (2) Hypokalemia Current Visit: Yes Status: Acute Assessment and plan: repleted (3) Lung nodule Current Visit: Yes Status: Acute Assessment and plan: oncology following. They will discuss patents case in multidisciplinary tumor board. Patient will follow up with them after d/c. (4) Pneumonia Current Visit: Yes Status: Suspected Assessment and plan: CXR shows right upper lobe opacity. cefepime and levaquin Has power glide and can continue these antibiotics at [facility] Qualifiers: Pneumonia type: due to unspecified organism Laterality: unspecified laterality Lung location: unspecified part of lung Qualified Code(s): J18.9 - Pneumonia, unspecified organism (5) NSTEMI (non-ST elevated myocardial infarction) Current Visit: Yes Status: Resolved Assessment and plan: Troponin peaked at 0.56. EKG showed no acute ischemic changes. Continue with medical management Aspirin. Plavix. Statins. Imdur. Toprol. Echocardiogram LVEF 40-45%, mild segmental LV systolic dysfunction. Continue lasix Has hx of Heart catheterization revealed occluded prox RCA with mature left-to- right collaterals filling the PDA. Intermediate 50-60% mid LAD stenosis. Mildly to mildly elevated LVEDP. (6) Urinary tract infection Current Visit: Yes Status: Resolved Assessment and plan: 2nd to pansensitive E coli UTI. Received ceftriaxone 7 days. Qualifiers: Urinary tract infection type: acute cystitis Hematuria presence: without hematuria Qualified Code(s): N30.00 - Acute cystitis without hematuria (7) COPD (chronic obstructive pulmonary disease) Current Visit: No Status: Chronic Assessment and plan: Duonebs q6hr. Qualifiers: COPD type: unspecified COPD Qualified Code(s): J44.9 - Chronic obstructive pulmonary disease, unspecified (8) Pelvic fracture Current Visit: Yes Status: Acute Assessment and plan: controlled with norco. Qualifiers: Encounter type: subsequent encounter Pelvic bone location: other part of pelvis Fracture type: closed Fracture healing: with routine healing Qualified Code(s): S32.89XD - Fracture of other parts of pelvis, subsequent encounter for fracture with routine healing - Subjective Interval history: The patient is severe respiratory distress confused at times, no CP , no abdominal pain , disoriented in time, no dysuria or diarrhea. NO fever - Constitutional Vitals: Temp Pulse Resp BP Pulse Ox 97.6 F 84 26 138/64 97 07/30/16 04:14 07/30/16 04:14 07/30/16 08:10 07/30/16 04:14 07/30/16 08:16 General appearance: Present: A&O X 3, answers questions appropriately - Head Head exam: Present: atraumatic, normocephalic - Eye Eye exam: Present: PERRL, conjuntiva pink, sclera anicteric Pupils: Present: PERRL - Neck Neck exam general surgery: Present: supple, trachea midline. Absent: lymphadenopathy - Respiratory Respiratory exam: Present: CTAB, rales (diffuse wheezing and crackles). Absent : accessory muscle use, rhonchi, wheezes - Cardiovascular Cardiovascular exam: Present: RRR, +S1, +S2. Absent: diastolic murmur, gallop, rubs, systolic murmur - GI/Abdominal GI/Abdominal exam: Present: normal bowel sounds, soft, no peritoneal signs. Absent: distended, tenderness - Extremities Exam Extremities exam: Present: warm, radial pulses palpable and symetrical. Absent : calf tenderness, cyanotic, pedal edema - Neurological Exam Neurological exam: Present: CN II-XII intact, oriented X3, no focal deficits. Absent: pronater drift, facial droop, speech deficit - Skin Skin exam: Present: dry, intact Internal Medicine: Result - Labs CBC & Chem 7: 07/29/16 05:33 07/30/16 06:49 Labs: BMP 07/30/16 06:49 Sodium 142 Potassium 3.5 Chloride 111 H Carbon Dioxide 23 BUN 12 Creatinine 0.81 Glucose 93 Calcium 8.6 - ABG Interpretation ABG results: ABG ABG pH 7.41 pH Units (7.32-7.45) 07/28/16 10:09 ABG pCO2 38 mmHg (35-45) 07/28/16 10:09 ABG pO2 97 mmHg (85-104) 07/28/16 10:09 ABG O2 Saturation 98 % (95-98) 07/28/16 10:09 PT/INR, D-dimer PT 14.3 Seconds (9.4-12.1) H 07/23/16 14:26 Consult Discharge Plan - Plan Referrals: Jessa Gutiérrez MD [Partnered Physician] - 08/04/16 2:00 pm (Please follow up as schedule...) Jeff Castaneda MD [Primary Care Provider] - 08/03/16 3:00 pm (Follow up August 03 at 3pm with LINDA DIEHL CNP.) Prescriptions: Cefepime HCl/Dextrose, Iso-Osm [Cefepime 1 gm Injection] 1 gm IV BID #9 mls OxyCODONE Immed Rel [Roxicodone 5 MG] 5 mg PO Q3H PRN #240 tablet PRN Reason: Pain
[2016-07-30] MEDS: Acetylcysteine 10% 2 ML INHSOL IH SCH ×3 (10:24→20:32)
[2016-07-30] MEDS: Sennosides/Docusate Sodium TABLET PO PRN (11:10)
[2016-07-30] MEDS: methylPREDNISolone 125 MG/2 ML VIAL IV SCH ×3 (12:52→23:33)
--- NOTE | 2016-07-30 17:30 | Oncology Inp Progress Note ---
Date of Encounter: 07/30/16 Time of Encounter: 17:00 (1) Anemia Current Visit: Yes Status: Chronic Assessment and plan: Recurrent anemia, multifactorial no evidence of bone marrow pathology status post procedure in May 2016, status post iron injection in the past, cardiomyopathy CHF, chronic kidney disease. SOB-improving after neb Rx. Held d/c to extended care facility today. Possible d /c Monday. Lung nodules imaging report reviewed in tumor board will follow up in few wks. Discussed plan with daughter and patient Hgb/Hct steady. IV iron after f/u labs as out patient. Plan reviewed as above with patient and family Qualifiers: Anemia type: other cause Other causes of anemia: other cause, not classified Qualified Code(s): D64.89 - Other specified anemias Oncology: Subj Interval history: Taking breathing treatment, delirium improved, occ confusion(baseline) and leg cramps per family - Constitutional Vitals: Vital Signs Temp Pulse Resp BP Pulse Ox 07/30/16 16:17 16 98 07/30/16 10:26 20 99 07/30/16 08:16 97 07/30/16 08:10 26 87 L 07/30/16 04:14 97.6 F 84 20 138/64 97 07/30/16 00:36 98.0 F 97 20 138/60 95 07/29/16 20:06 98.1 F 92 19 155/70 97 Intake and Output 07/30/16 07/30/16 07/30/16 07:59 15:59 23:59 Intake Total 100 / 100 150 / 150 Output Total 75 / 75 Balance 100 / 100 75 / 75 Intake: IV Fluids 100 / 100 150 / 150 Maxipime 1,000 MG In 100 / 100 Dextrose 5% (Minibag+) 100 ML 100 ML @ 200 mls/ hr IVPB Q12HR [facility] Rx#: [id number] Levaquin 750mg/150 mL 750 150 / 150 mg In 150 ml @ 100 mls/ hr IVPB DAILY [facility] Rx#: [id number] Output: Urine 75 / 75 Other: # Voids 1 Weight 66.9 kg Blood Glucose* 106 Patient Weight 07/30/16 23:59 Weight 66.9 kg General appearance: mild distress, thin - Head Head exam: Present: atraumatic, normal inspection - Eye Eye exam: Present: sclera anicteric - ENT ENT exam: Present: mucous membranes moist - Neck Neck exam: Present: full ROM - Respiratory Respiratory exam: Present: CTAB, wheezes - Cardiovascular Cardiovascular exam: Present: +S1, +S2 - GI/Abdominal GI/Abdominal exam: Present: normal bowel sounds, soft - Extremities Exam Extremities exam: Present: pedal edema - Neurological Exam Neurological exam: Present: alert, oriented X3 Oncology: Obj Data - Labs CBC & Chem 7: 07/29/16 05:33 07/30/16 06:49 Labs: Laboratory Results - last 24 hr 07/29/16 07/30/16 07/30/16 20:44 04:10 06:49 Sodium 142 Potassium 3.5 Chloride 111 H Carbon Dioxide 23 BUN 12 Creatinine 0.81 Est GFR ( Amer) > 60 Est GFR (Non-Af Amer) > 60 BUN/Creatinine Ratio 15 Glucose 93 POC Glucose 109 H Calculated Osmolality 293 Calcium 8.6 Specimen Rejected Hemolyzed - ABG Interpretation ABG results: ABG ABG pH 7.41 pH Units (7.32-7.45) 07/28/16 10:09 ABG pCO2 38 mmHg (35-45) 07/28/16 10:09 ABG pO2 97 mmHg (85-104) 07/28/16 10:09 ABG O2 Saturation 98 % (95-98) 07/28/16 10:09 PT/INR, D-dimer PT 14.3 Seconds (9.4-12.1) H 07/23/16 14:26 Consult Discharge Plan - Plan Referrals: Jessa Gutiérrez MD [Partnered Physician] - 08/04/16 2:00 pm (Please follow up as schedule...) Jeff Castaneda MD [Primary Care Provider] - 08/03/16 3:00 pm (Follow up August 03 at 3pm with LINDA DIEHL CNP.) Prescriptions: Cefepime HCl/Dextrose, Iso-Osm [Cefepime 1 gm Injection] 1 gm IV BID #9 mls OxyCODONE Immed Rel [Roxicodone 5 MG] 5 mg PO Q3H PRN #240 tablet PRN Reason: Pain
[2016-07-30] MEDS: *HR* LORazepam 1 MG TABLET PO SCH (20:22)
[2016-07-30] MEDS: Melatonin 3 MG TABLET PO SCH (20:23)
[2016-07-31 04:06] LABS: Hematocrit 27.4 % (35.3-44.9); Hemoglobin 8.5 g/dL (11.5-15.4); Mean Corpuscular Hemoglobin 29.9 pg (28.0-33.3); Mean Corpuscular Volume 96.5 fL (83.0-100.0); Mean Platelet Volume 10.1 fL (9.4-12.4); Platelet Count 305 K/mcL (140-400); Red Blood Count 2.84 M/mcL (3.82-4.97); Red Cell Distribution Width 15.9 % (11.5-14.5)
[2016-07-31] MEDS: Acetylcysteine 10% 2 ML INHSOL IH SCH ×4 (04:06→20:08)
[2016-07-31 04:20] LABS: BUN/Creatinine Ratio 18 (6-26); Blood Urea Nitrogen 15 mg/dL (7-20); Calcium 8.5 mg/dL (8.6-10.8); Carbon Dioxide 25 mEq/L (19-29); Chloride 109 mEq/L (98-109); Glucose 139 mg/dL (70-99); Osmolality,Calculated 299 (280-300); Sodium 143 mEq/L (136-145); eGFR For African Americans > 60 (> 60); eGFR For Non-African Americans > 60 (> 60)
[2016-07-31] MEDS: Cefepime HCl 1,000 MG in D5% in Water (Mini-Bag+) 100 ML IVPB SCH ×2 (05:24→17:35)
[2016-07-31] MEDS: methylPREDNISolone 125 MG/2 ML VIAL IV SCH ×4 (05:27→21:19)
--- NOTE | 2016-07-31 08:14 | Internal Med Progress Note ---
Date of Encounter: 07/31/16 Time of Encounter: 08:11 - Assessment and plan (1) Acute metabolic encephalopathy Current Visit: Yes Status: Acute Assessment and plan: Secondary to acute COPD exacerbation due to gram negative Pneumonia in combination with (multifactorial) UTI, NSTEMI, polypharmacy (patient takes lorazepam, norco, bupropion, zoloft, and tramadol) and lung disease in the setting of mild dementia. CXR showed possible right upper lobe pneumonia. Continue cefepime and levaquin day 4. Decreased dose of solumedrol IV down to 60 mg 3 times a day mucomyst unknown if her prior change in mental status due to pneumonia, or withholding home psych medications. Continua bupropion, norco, zoloft, and lorazepam. Amitriptyline was discontinued, mental status improved after restarting bupropion (2) Hypokalemia Current Visit: Yes Status: Acute Assessment and plan: repleted (3) Lung nodule Current Visit: Yes Status: Acute Assessment and plan: oncology following. They will discuss patents case in multidisciplinary tumor board. Patient will follow up with them after d/c. (4) Pneumonia Current Visit: Yes Status: Suspected Assessment and plan: CXR shows right upper lobe opacity. cefepime and levaquin Has power glide and can continue these antibiotics at [facility] Qualifiers: Pneumonia type: due to unspecified organism Laterality: unspecified laterality Lung location: unspecified part of lung Qualified Code(s): J18.9 - Pneumonia, unspecified organism (5) NSTEMI (non-ST elevated myocardial infarction) Current Visit: Yes Status: Resolved Assessment and plan: Troponin peaked at 0.56. EKG showed no acute ischemic changes. Continue with medical management Aspirin. Plavix. Statins. Imdur. Toprol. Echocardiogram LVEF 40-45%, mild segmental LV systolic dysfunction. Continue lasix Has hx of Heart catheterization revealed occluded prox RCA with mature left-to- right collaterals filling the PDA. Intermediate 50-60% mid LAD stenosis. Mildly to mildly elevated LVEDP. (6) Urinary tract infection Current Visit: Yes Status: Resolved Assessment and plan: 2nd to pansensitive E coli UTI. Received ceftriaxone 7 days. Qualifiers: Urinary tract infection type: acute cystitis Hematuria presence: without hematuria Qualified Code(s): N30.00 - Acute cystitis without hematuria (7) COPD (chronic obstructive pulmonary disease) Current Visit: No Status: Chronic Assessment and plan: Duonebs q6hr. Qualifiers: COPD type: unspecified COPD Qualified Code(s): J44.9 - Chronic obstructive pulmonary disease, unspecified (8) Pelvic fracture Current Visit: Yes Status: Acute Assessment and plan: controlled with norco. Qualifiers: Encounter type: subsequent encounter Pelvic bone location: other part of pelvis Fracture type: closed Fracture healing: with routine healing Qualified Code(s): S32.89XD - Fracture of other parts of pelvis, subsequent encounter for fracture with routine healing (9) Leukopenia Current Visit: Yes Status: Acute Assessment and plan: Likely secondary to infection Qualifiers: Neutropenia type: due to infection Qualified Code(s): D70.3 - Neutropenia due to infection - Time Spent With Patient Greater than 35 minutes - Subjective Interval history: The patient is less short of breath, confused at times, no CP, no abdominal pain , disoriented in time, no dysuria or diarrhea. NO fever - Constitutional Vitals: Temp Pulse Resp BP Pulse Ox 98.0 F 83 16 172/77 97 07/31/16 07:16 07/31/16 07:16 07/31/16 07:16 07/31/16 07:16 07/31/16 07:16 General appearance: Present: A&O X 2, answers questions appropriately - Head Head exam: Present: atraumatic, normocephalic - Eye Eye exam: Present: PERRL, conjuntiva pink, sclera anicteric Pupils: Present: PERRL - Neck Neck exam general surgery: Present: supple, trachea midline. Absent: lymphadenopathy - Respiratory Respiratory exam: Present: decreased breath sounds, CTAB, wheezes (Less diffuse wheezing). Absent: accessory muscle use, rales, rhonchi - Cardiovascular Cardiovascular exam: Present: RRR, +S1, +S2. Absent: diastolic murmur, gallop, rubs, systolic murmur - GI/Abdominal GI/Abdominal exam: Present: normal bowel sounds, soft, no peritoneal signs. Absent: distended, tenderness - Extremities Exam Extremities exam: Present: warm, radial pulses palpable and symetrical. Absent : calf tenderness, cyanotic, pedal edema - Neurological Exam Neurological exam: Present: CN II-XII intact, no focal deficits. Absent: oriented X3, pronater drift, facial droop, speech deficit - Skin Skin exam: Present: dry, intact Internal Medicine: Result - Labs CBC & Chem 7: 07/31/16 03:23 07/31/16 03:23 Labs: Short CBC 07/31/16 Range/Units 03:23 WBC 3.2 L (4.3-11.1) K/mcL Hgb 8.5 L (11.5-15.4) g/dL Hct 27.4 L (35.3-44.9) % Plt Count 305 (140-400) K/mcL BMP 07/31/16 03:23 Sodium 143 Potassium 4.0 Chloride 109 Carbon Dioxide 25 BUN 15 Creatinine 0.83 Glucose 139 H Calcium 8.5 L - ABG Interpretation ABG results: ABG ABG pH 7.41 pH Units (7.32-7.45) 07/28/16 10:09 ABG pCO2 38 mmHg (35-45) 07/28/16 10:09 ABG pO2 97 mmHg (85-104) 07/28/16 10:09 ABG O2 Saturation 98 % (95-98) 07/28/16 10:09 PT/INR, D-dimer PT 14.3 Seconds (9.4-12.1) H 07/23/16 14:26 Consult Discharge Plan - Plan Referrals: Jessa Gutiérrez MD [Partnered Physician] - 08/04/16 2:00 pm (Please follow up as schedule...) Jeff Castaneda MD [Primary Care Provider] - 08/03/16 3:00 pm (Follow up August 03 at 3pm with LINDA DIEHL CNP.) Prescriptions: Cefepime HCl/Dextrose, Iso-Osm [Cefepime 1 gm Injection] 1 gm IV BID #9 mls OxyCODONE Immed Rel [Roxicodone 5 MG] 5 mg PO Q3H PRN #240 tablet PRN Reason: Pain
[2016-07-31] MEDS: levoFLOXacin 500 MG TABLET PO SCH (09:27)
[2016-07-31] MEDS: Furosemide 20 MG TABLET PO SCH ×2 (09:27→17:35)
[2016-07-31] MEDS: Magnesium Oxide 400 MG TABLET PO SCH (09:28)
[2016-07-31] MEDS: BuPROPion SR (12 HR) 100 MG TABLET PO SCH ×2 (09:28→21:18)
[2016-07-31] MEDS: Isosorbide MONOnitrate (24 HR) 60 MG TAB.ER.24H PO SCH (09:28)
[2016-07-31] MEDS: Metoprolol XL (24 HR) Succ 25 MG TAB.ER.24H PO SCH (09:28)
[2016-07-31] MEDS: Ipratropium/Albuterol Neb 3 ML IH SCH ×3 (09:30→20:06)
[2016-07-31] MEDS: Budesonide Neb 0.5 MG/2 ML IH SCH ×2 (09:30→20:08)
[2016-07-31] MEDS: *HR* HYDROcodone/Acet 7.5/325 mg TABLET PO PRN ×2 (14:16→21:31)
[2016-07-31] MEDS: Sennosides/Docusate Sodium TABLET PO PRN (21:18)
[2016-07-31] MEDS: Melatonin 3 MG TABLET PO SCH (21:19)
[2016-07-31] MEDS: *HR* LORazepam 1 MG TABLET PO SCH (21:19)
[2016-08-01] MEDS: *HR* HYDROcodone/Acet 7.5/325 mg TABLET PO PRN ×4 (02:56→15:00)
[2016-08-01] MEDS: Acetylcysteine 10% 2 ML INHSOL IH SCH ×2 (03:10→10:53)
[2016-08-01 04:20] LABS: Hematocrit 28.2 % (35.3-44.9); Hemoglobin 8.8 g/dL (11.5-15.4); Mean Corpuscular HGB Conc 31.2 g/dL (31.6-35.5); Mean Corpuscular Hemoglobin 30.6 pg (28.0-33.3); Mean Corpuscular Volume 97.9 fL (83.0-100.0); Mean Platelet Volume 9.9 fL (9.4-12.4); Platelet Count 302 K/mcL (140-400); Red Blood Count 2.88 M/mcL (3.82-4.97); Red Cell Distribution Width 16.1 % (11.5-14.5)
[2016-08-01 04:32] LABS: BUN/Creatinine Ratio 29 (6-26); Blood Urea Nitrogen 26 mg/dL (7-20); Calcium 8.3 mg/dL (8.6-10.8); Carbon Dioxide 25 mEq/L (19-29); Chloride 108 mEq/L (98-109); Glucose 137 mg/dL (70-99); Osmolality,Calculated 303 (280-300); Potassium 3.7 mEq/L (3.5-4.5); Sodium 143 mEq/L (136-145); eGFR For African Americans > 60 (> 60); eGFR For Non-African Americans > 60 (> 60)
[2016-08-01] MEDS: Cefepime HCl 1,000 MG in D5% in Water (Mini-Bag+) 100 ML IVPB SCH (05:29)
[2016-08-01] MEDS ORDERED: *HR* Heparin 10,000 UNIT/10 ML VIAL ONE (07:53)
[2016-08-01] MEDS ORDERED: 0.9 % Sodium Chloride 1,000 ML ONE (07:53)
[2016-08-01] MEDS ORDERED: Verapamil 5 MG/2 ML VIAL ONE (07:53)
[2016-08-01] MEDS ORDERED: Nitroglycerin 1,000 MCG/10 ML VIAL IV ONE (07:53)
[2016-08-01] MEDS ORDERED: Heparin 1,000 UNITS/500 mL NS 500 ML ONE (07:53)
[2016-08-01] MEDS: Budesonide Neb 0.5 MG/2 ML IH SCH (07:57)
[2016-08-01] MEDS: methylPREDNISolone 125 MG/2 ML VIAL IV SCH (08:26)
[2016-08-01] MEDS: Furosemide 20 MG TABLET PO SCH (08:27)
[2016-08-01] MEDS: BuPROPion SR (12 HR) 100 MG TABLET PO SCH (08:27)
[2016-08-01] MEDS: levoFLOXacin 500 MG TABLET PO SCH (08:27)
[2016-08-01] MEDS: Magnesium Oxide 400 MG TABLET PO SCH (08:27)
[2016-08-01] MEDS: Isosorbide MONOnitrate (24 HR) 60 MG TAB.ER.24H PO SCH (08:27)
[2016-08-01] MEDS: Metoprolol XL (24 HR) Succ 25 MG TAB.ER.24H PO SCH (08:27)
--- NOTE | 2016-08-01 09:11 | Palliative Progress Note ---
Date of Encounter: 08/01/16 Time of Encounter: 08:30 - Assessment and plan (1) Altered mental status Current Visit: Yes Status: Acute Assessment and plan: The patient is awake and alert at this time. Mental status appears to be normal. Patient does have waxing and waning just with her mental status course of the weekend. I need to watch. Qualifiers: Altered mental status type: delirium Qualified Code(s): R41.0 - Disorientation, unspecified (2) Goals of care, counseling/discussion Current Visit: Yes Status: Acute Assessment and plan: The patient is now DNR a DNI. Stressed with patient and family yesterday and this Decision made to make her DNR a DNI. plan is still for the patient to return to [facility] for finishing out rehabilitation. Then to return to the home. . (3) Cardiomyopathy Current Visit: Yes Status: Acute Assessment and plan: The patient is having no chest pain but does feel shortness of breath at this time. Hospitalist team is following.. Qualifiers: Cardiomyopathy type: unspecified Qualified Code(s): I42.9 - Cardiomyopathy , unspecified (4) Delirium Current Visit: Yes Status: Acute Assessment and plan: This is overall greatly improved over the last several days. (5) Chronic pain syndrome Current Visit: Yes Status: Chronic Assessment and plan: The patient is tolerating her pain better than I have seen since she came in. Chair and tolerating this well. No changes at this time. (6) Itch Current Visit: Yes Status: Acute Assessment and plan: Right forearm volar surface. Does not seem to have any rash associated with it but has been causing great deal of itch do not wish to use any systemic itch medications as these will affect her sensorium and her delirium. Will use 2% hydrocortisone cream. Per patient today this itch has resolved. Therefore go ahead and stop the cream. - Time Spent With Patient Total time spent is greater than 50% in coordination of care (as documented) at patient's floor/unit and/or counseling patient: - Subjective Interval history: The patient was stable during the night per the nursing report, she is awake alert and appropriate at this time. She is complaining of feeling anxious. She is sitting up in a chair in her breakfast currently. And tolerating it well from a pelvic pain standpoint. - Constitutional Vitals: Abnormal lab results RBC 2.88 M/mcL (3.82-4.97) L 08/01/16 03:54 Hgb 8.8 g/dL (11.5-15.4) L 08/01/16 03:54 Hct 28.2 % (35.3-44.9) L 08/01/16 03:54 MCHC 31.2 g/dL (31.6-35.5) L 08/01/16 03:54 RDW 16.1 % (11.5-14.5) H 08/01/16 03:54 PT 14.3 Seconds (9.4-12.1) H 07/23/16 14:26 APTT 25.5 Seconds (26.0-36.0) L D 07/26/16 06:10 VBG pH 7.44 pH Units (7.32-7.42) H 07/22/16 23:48 VBG pCO2 38 mmHg (41-51) L 07/22/16 23:48 VBG pO2 50 mmHg (25-40) H 07/22/16 23:48 BUN 26 mg/dL (7-20) H D 08/01/16 03:54 BUN/Creatinine Ratio 29 (6-26) H 08/01/16 03:54 Glucose 137 mg/dL (70-99) H 08/01/16 03:54 POC Glucose 174 (58-89) H 07/31/16 14:59 Calculated Osmolality 303 (280-300) H 08/01/16 03:54 Calcium 8.3 mg/dL (8.6-10.8) L 08/01/16 03:54 Ammonia 16 mcmol/L (18-72) L 07/28/16 13:33 Troponin I 0.41 ng/mL (0-0.03) H* 07/23/16 14:26 B-Natriuretic Peptide 472 pg/mL (0-100) H 07/22/16 23:48 Serum Total Protein 5.7 g/dL (6.0-8.3) L 07/28/16 13:33 Albumin 2.3 g/dL (3.5-5.0) L 07/28/16 13:33 Albumin/Globulin Ratio 0.7 (1.1-2.2) L 07/28/16 13:33 Urine Clarity Cloudy (Clear) A 07/23/16 02:20 Ur Leukocyte Esterase Moderate (Negative) H 07/23/16 02:20 Urine Microscopic WBC 30-50 per hpf (0-3) H 07/23/16 02:20 Urine Bacteria Moderate per hpf (None-Few) H 07/23/16 02:20 Ur Culture Indicated? YES (NO) A 07/23/16 02:20 General appearance: Present: no acute distress (She does state she feels anxious ) - Head Head exam: Present: atraumatic, normal inspection - Eye Eye exam: Present: normal appearance - Respiratory Respiratory exam: Present: decreased breath sounds (But moving air well.) - Cardiovascular Cardiovascular exam: Present: RRR - GI/Abdominal GI/Abdominal exam: Present: normal bowel sounds, soft. Absent: tenderness - Extremities Exam Extremities exam: Present: normal inspection. Absent: pedal edema, tenderness - Neurological Exam Neurological exam: Present: alert - Psychiatric Psychiatric exam: Present: anxious. Absent: agitated - Skin Skin exam: Present: dry, warm Palliative Quality Palliative Quality: Screen for Code Status: Yes, Screen for Goals of Care: Yes, Screen for Pain: Yes, If Pain Regimen Started, Initiate Bowel Regimen: Yes, Screen for Nausea/Vomitting: Yes Code Status: 07/23/16 08:02 Resuscitation Status: Active [RES] Routine Comment: Resuscitation Status: Full Code Resuscitation Status: Active [RES] Routine Comment: Resuscitation Status: [id number] - Labs CBC & Chem 7: 08/01/16 03:54 08/01/16 03:54 Labs: Laboratory Results - last 24 hr 07/31/16 07/31/16 07/31/16 07:18 11:46 14:59 WBC RBC Hgb Hct MCV MCH MCHC RDW Plt Count MPV Sodium Potassium Chloride Carbon Dioxide BUN Creatinine Est GFR ( Amer) Est GFR (Non-Af Amer) BUN/Creatinine Ratio Glucose POC Glucose 150 H 214 H 174 H Calculated Osmolality Calcium 08/01/16 08/01/16 03:54 03:54 WBC 9.3 D RBC 2.88 L Hgb 8.8 L Hct 28.2 L MCV 97.9 MCH 30.6 MCHC 31.2 L RDW 16.1 H Plt Count 302 MPV 9.9 Sodium 143 Potassium 3.7 Chloride 108 Carbon Dioxide 25 BUN 26 H D Creatinine 0.89 Est GFR ( Amer) > 60 Est GFR (Non-Af Amer) > 60 BUN/Creatinine Ratio 29 H Glucose 137 H POC Glucose Calculated Osmolality 303 H Calcium 8.3 L - ABG Interpretation ABG results: ABG ABG pH 7.41 pH Units (7.32-7.45) 07/28/16 10:09 ABG pCO2 38 mmHg (35-45) 07/28/16 10:09 ABG pO2 97 mmHg (85-104) 07/28/16 10:09 ABG O2 Saturation 98 % (95-98) 07/28/16 10:09 PT/INR, D-dimer PT 14.3 Seconds (9.4-12.1) H 07/23/16 14:26 Consult Discharge Plan - Plan Referrals: Jessa Gutiérrez MD [Partnered Physician] - 08/04/16 2:00 pm (Please follow up as schedule...) Jeff Castaneda MD [Primary Care Provider] - 08/03/16 3:00 pm (Follow up August 03 at 3pm with LINDA DIEHL, [place].) Prescriptions: Cefepime HCl/Dextrose, Iso-Osm [Cefepime 1 gm Injection] 1 gm IV BID #9 mls OxyCODONE Immed Rel [Roxicodone 5 MG] 5 mg PO Q3H PRN #240 tablet PRN Reason: Pain
[2016-08-01] MEDS ORDERED: *HR* LORazepam 2 MG/ML VIAL IVP PRN (09:30)
--- NOTE | 2016-08-01 09:33 | Internal Med Progress Note ---
<Maco Anderson - Last Filed: 08/01/16 09:31> Date of Encounter: 08/01/16 Time of Encounter: 09:31 - Assessment and plan (1) Acute metabolic encephalopathy Current Visit: Yes Status: Acute Assessment and plan: Secondary to acute COPD exacerbation due to gram negative Pneumonia in combination with (multifactorial) UTI, NSTEMI, polypharmacy (patient takes lorazepam, norco, bupropion, zoloft, and tramadol) and lung disease in the setting of mild dementia. CXR showed possible right upper lobe pneumonia. Continue cefepime and levaquin day 5. d/c solumedrol and start prednisone taper unknown if her prior change in mental status due to pneumonia, or withholding home psych medications. Continua bupropion, norco, zoloft, and lorazepam. Amitriptyline was discontinued, mental status improved after restarting bupropion (2) Pneumonia Current Visit: Yes Status: Suspected Assessment and plan: CXR shows right upper lobe opacity. cefepime and levaquin day 5 Has power glide and [facility] Qualifiers: Pneumonia type: due to unspecified organism Laterality: unspecified laterality Lung location: unspecified part of lung Qualified Code(s): J18.9 - Pneumonia, unspecified organism (3) NSTEMI (non-ST elevated myocardial infarction) Current Visit: Yes Status: Resolved Assessment and plan: Troponin peaked at 0.56. EKG showed no acute ischemic changes. Continue with medical management Aspirin. Plavix. Statins. Imdur. Toprol. Echocardiogram LVEF 40-45%, mild segmental LV systolic dysfunction. Continue lasix Has hx of Heart catheterization revealed occluded prox RCA with mature left-to- right collaterals filling the PDA. Intermediate 50-60% mid LAD stenosis. Mildly to mildly elevated LVEDP. (4) Lung nodule Current Visit: Yes Status: Acute Assessment and plan: oncology following. They will discuss patents case in multidisciplinary tumor board. Patient will follow up with them after d/c. (5) Acute CHF (congestive heart failure) Current Visit: Yes Status: Acute Assessment and plan: ECHo shows LVEF 40-45%. 2nd to ischemia/non-stemi. continue lasix. Qualifiers: Congestive heart failure type: systolic Qualified Code(s): I50.21 - Acute systolic (congestive) heart failure (6) Urinary tract infection Current Visit: Yes Status: Resolved Assessment and plan: 2nd to pansensitive E coli UTI. Received ceftriaxone 7 days. Qualifiers: Urinary tract infection type: acute cystitis Hematuria presence: without hematuria Qualified Code(s): N30.00 - Acute cystitis without hematuria (7) Hypokalemia Current Visit: Yes Status: Resolved Assessment and plan: repleted (8) Chronic pain syndrome Current Visit: Yes Status: Chronic Assessment and plan: secondary to right pelvis fracture /. controlled with norco. (9) COPD (chronic obstructive pulmonary disease) Current Visit: No Status: Chronic Assessment and plan: stable. Duonebs q6hr. Qualifiers: COPD type: unspecified COPD Qualified Code(s): J44.9 - Chronic obstructive pulmonary disease, unspecified - Subjective Interval history: Patient awake alert x3. Conversing well. NO acute problems overnight. d/c to [facility] today. - Constitutional Vitals: Temp Pulse Resp BP Pulse Ox 98.1 F 91 18 167/81 99 08/01/16 07:46 08/01/16 07:46 08/01/16 08:00 08/01/16 07:46 08/01/16 08:00 General appearance: Present: A&O X 3, answers questions appropriately - Head Head exam: Present: atraumatic, normocephalic - Eye Eye exam: Present: PERRL, conjuntiva pink, sclera anicteric - Neck Neck exam general surgery: Present: supple, trachea midline. Absent: lymphadenopathy - Respiratory Respiratory exam: Present: CTAB, wheezes (mild). Absent: accessory muscle use, rales, rhonchi - Cardiovascular Cardiovascular exam: Present: RRR, +S1, +S2. Absent: diastolic murmur, gallop, rubs, systolic murmur - GI/Abdominal GI/Abdominal exam: Present: normal bowel sounds, soft, no peritoneal signs. Absent: distended, tenderness - Extremities Exam Extremities exam: Present: warm, radial pulses palpable and symetrical. Absent : calf tenderness, cyanotic, pedal edema - Neurological Exam Neurological exam: Present: CN II-XII intact, oriented X3, no focal deficits. Absent: pronater drift, facial droop, speech deficit - Skin Skin exam: Present: dry, intact Internal Medicine: Result - Labs CBC & Chem 7: 03/06/17 03:54 08/01/16 03:54 Labs: Short CBC 08/01/16 Range/Units 03:54 WBC 9.3 D (4.3-11.1) K/mcL Hgb 8.8 L (11.5-15.4) g/dL Hct 28.2 L (35.3-44.9) % Plt Count 302 (140-400) K/mcL BMP 08/01/16 03:54 Sodium 143 Potassium 3.7 Chloride 108 Carbon Dioxide 25 BUN 26 H D Creatinine 0.89 Glucose 137 H Calcium 8.3 L - ABG Interpretation ABG results: ABG ABG pH 7.41 pH Units (7.32-7.45) 07/28/16 10:09 ABG pCO2 38 mmHg (35-45) 07/28/16 10:09 ABG pO2 97 mmHg (85-104) 07/28/16 10:09 ABG O2 Saturation 98 % (95-98) 07/28/16 10:09 PT/INR, D-dimer PT 14.3 Seconds (9.4-12.1) H 07/23/16 14:26 Consult Discharge Plan - Plan Referrals: Jessa Gutiérrez MD [Partnered Physician] - 08/04/16 2:00 pm (Please follow up as schedule...) Jeff Castaneda MD [Primary Care Provider] - 08/03/16 3:00 pm (Follow up August 03 at 3pm with LINDA DIEHL CNP.) Prescriptions: BuPROPion [Wellbutrin] 100 mg PO BID #60 tablet Cefepime HCl/Dextrose, Iso-Osm [Cefepime 1 gm Injection] 1 gm IV BID #3 mls HYDROcodone/Acet 7.5/325 mg [[place] 7.5-325 mg] 1 tab PO Q3H PRN #240 tablet PRN Reason: Pain Levofloxacin [Levaquin] 750 mg PO DAILY #3 tablet Magnesium Oxide [Mag-Ox] 400 mg PO DAILY #30 tablet PredniSONE 10 mg PO TAPER 12 Days <Nathaniel Wooten H - Last Filed: 08/01/16 09:52> Date of Encounter: 08/01/16 - Assessment and plan (1) Acute metabolic encephalopathy Current Visit: Yes Status: Acute (2) Hypokalemia Current Visit: Yes Status: Resolved (3) Lung nodule Current Visit: Yes Status: Acute (4) Pneumonia Current Visit: Yes Status: Suspected Qualifiers: Pneumonia type: due to unspecified organism Laterality: unspecified laterality Lung location: unspecified part of lung Qualified Code(s): J18.9 - Pneumonia, unspecified organism (5) NSTEMI (non-ST elevated myocardial infarction) Current Visit: Yes Status: Resolved (6) Urinary tract infection Current Visit: Yes Status: Resolved Qualifiers: Urinary tract infection type: acute cystitis Hematuria presence: without hematuria Qualified Code(s): N30.00 - Acute cystitis without hematuria (7) COPD (chronic obstructive pulmonary disease) Current Visit: No Status: Chronic Qualifiers: COPD type: unspecified COPD Qualified Code(s): J44.9 - Chronic obstructive pulmonary disease, unspecified (8) Pelvic fracture Current Visit: Yes Status: Acute Qualifiers: Encounter type: subsequent encounter Pelvic bone location: other part of pelvis Fracture type: closed Fracture healing: with routine healing Qualified Code(s): S32.89XD - Fracture of other parts of pelvis, subsequent encounter for fracture with routine healing (9) Leukopenia Current Visit: Yes Status: Acute Qualifiers: Neutropenia type: due to infection Qualified Code(s): D70.3 - Neutropenia due to infection - Constitutional Vitals: Temp Pulse Resp BP Pulse Ox 98.1 F 91 18 167/81 99 08/01/16 07:46 08/01/16 07:46 08/01/16 08:00 08/01/16 07:46 08/01/16 08:00 Internal Medicine: Result - Labs CBC & Chem 7: 08/01/16 03:54 08/01/16 03:54 Labs: Short CBC 08/01/16 Range/Units 03:54 WBC 9.3 D (4.3-11.1) K/mcL Hgb 8.8 L (11.5-15.4) g/dL Hct 28.2 L (35.3-44.9) % Plt Count 302 (140-400) K/mcL BMP 08/01/16 03:54 Sodium 143 Potassium 3.7 Chloride 108 Carbon Dioxide 25 BUN 26 H D Creatinine 0.89 Glucose 137 H Calcium 8.3 L - ABG Interpretation ABG results: ABG ABG pH 7.41 pH Units (7.32-7.45) 07/28/16 10:09 ABG pCO2 38 mmHg (35-45) 07/28/16 10:09 ABG pO2 97 mmHg (85-104) 07/28/16 10:09 ABG O2 Saturation 98 % (95-98) 07/28/16 10:09 PT/INR, D-dimer PT 14.3 Seconds (9.4-12.1) H 07/23/16 14:26 - Attending Attestation Complete 2 more days of cefepime 1 g IV twice a day and Levaquin 750 mg daily oral Taper prednisone 40 mg daily for 3 days then 30 mg for 3 days then 20 mg for 3 days and 10 mg for 3 days his Refer to the discharge summary from July 27 I examined this patient and my medical decision-making was reviewed with the [employer]/PA/Advanced Practice Nurse/Resident Physician. I agree with the documented findings, disposition and treatment plan as described except to the extent set forth below.
[2016-08-01] MEDS: Ipratropium/Albuterol Neb 3 ML IH SCH (10:52)
[2016-08-01 11:18] LABS: Bilirubin,Urine Negative (Negative); Blood,Urine Large (Negative); Clarity,Urine Cloudy (Clear); Color,Urine Yellow (Yellow); Glucose,Urine (UA) Normal (Normal); Ketones,Urine Negative (Negative); Leukocyte Esterase,Urine Trace (Negative); Nitrite,Urine Negative (Negative); PH,Urine 5.5 pH Units (5.0-8.0); Protein,Urine 100 mg/dL (Neg-Trace); Specific Gravity,Urine 1.022 (1.010-1.025); Urobilinogen,Urine Normal (Normal)
[2016-08-01 11:20] LABS: Bacteria,Urine None Seen per hpf (None-Few); Hyaline Casts,Urine None Seen per lpf (None-Few); RBC,Urine TNTC per hpf (0-3); Squamous Epithelial Cell,Urine Many per lpf (None-Few)
[2016-08-01 11:41] LABS: Transitional Epi Cells,Urine Few per hpf (None-Few)
[2016-08-01 11:43] VITALS: BP 143/54
[2016-08-01] MEDS ORDERED: *HR* LORazepam 2 MG/ML VIAL IVP SCH (12:00)
== END 2016-08-01 15:55 | DRG 871 ==
LOC: EMEROO 23:36 → SUATTDRO 07-23 04:53 → 2ANU 07-23 04:53
PROVIDERS: ADMIT Pediatrics; ATTEND Internal Medicine

== ENCOUNTER 2016-08-12 00:21 | Inpatient (IN) ==
--- NOTE | 2016-08-12 01:01 | Emergency Department Note ---
Disposition Clinical Impression: DANIEL (acute kidney injury), Elevated troponin, Hypernatremia Leukocytosis Qualifiers: Leukocytosis type: unspecified Qualified Code(s): D72.829 - Elevated white blood cell count, unspecified Altered mental status Qualifiers: Altered mental status type: unspecified Qualified Code(s): R41.82 - Altered mental status, unspecified Disposition: Admitted As Inpatient Condition: Fair Time of Disposition: 07:18 Altered Mental Status HPI - General Chief Complaint: ED Altered Mental Status Stated Complaint: AMS Time Seen by Provider: 08/12/16 00:48 Source: family, EMS Mode of arrival: EMS Limitations: no limitations Nursing Notes Reviewed: Yes Vital Signs Reviewed: Yes - History of Present Illness HPI Narrative: Patient is a 81-year-old female with past medical history of COPD, dementia, GERD, CAD, hypertension, hyperlipidemia. She presented via EMS due to altered mental status. She is accompanied by HER-2 daughters. They state that the patient has been altered for the past 2-3 days. She is acting like this before with UTI and also with pneumonia. Both daughters state that the patient has been admitted for UTIs and pneumonia within the past couple months, she is also been recently diagnosed with an N STEMI and had a short hospital stay for this reason. Today, she is altered, combative, is very confused, complaining of chest pain, cough. Denies any nausea, vomiting, abdominal pain, diarrhea. - Related Data Home Medications Medication Instructions Recorded Confirmed Budesonide/Formoterol 160/4.5 2 puff IH BID 02/20/15 08/12/16 [Symbicort] Clopidogrel [Plavix] 75 mg PO DAILY 02/20/15 08/12/16 Tiotropium [Spiriva] 18 mcg IH DAILY 02/20/15 08/12/16 Donepezil [Aricept] 10 mg PO HS 04/03/15 08/12/16 Alendronate Sodium [Fosamax] 70 mg PO MO 07/09/15 08/12/16 Ascorbate Calcium [Vitamin C] 500 mg PO DAILY 07/09/15 08/12/16 Aspirin [Adult Low Dose Aspirin EC] 81 mg PO DAILY 07/09/15 08/12/16 Calcium Carbonate/Vitamin D3 1 tab PO DAILY 07/09/15 08/12/16 [Calcium 500-Vit D3 400 Tablet] Ferrous Sulfate 325 mg PO DAILY 07/09/15 08/12/16 Isosorbide MONOnitrate (24 HR) 60 mg PO DAILY 07/09/15 08/12/16 [Imdur] Losartan [Cozaar] 100 mg PO DAILY 07/09/15 08/12/16 Metoprolol XL (24 HR) Succ [Toprol 25 mg PO DAILY 07/09/15 08/12/16 Xl] Simvastatin [Zocor] 20 mg PO QPM 07/09/15 08/12/16 Hydralazine HCl 50 mg PO TID 11/27/15 08/12/16 Cholecalciferol (D-3) [Vitamin D] 1,000 unit PO DAILY 02/22/16 08/12/16 Albuterol Neb [Proventil Neb] 2.5 mg IH Q4HR 07/04/16 08/12/16 Multivitamin [Multi-Day Vitamins] 1 tab PO DAILY 07/23/16 08/12/16 Potassium Chloride 20 meq PO BID 07/23/16 08/12/16 Ipratropium/Albuterol Neb [Duoneb] 3 ml IH Q4HR PRN 08/12/16 08/12/16 LORazepam [Lorazepam] 0.5 mg PO Q8HR PRN 08/12/16 08/12/16 Megestrol Acetate 800 mg PO DAILY 08/12/16 08/12/16 Melatonin 5 mg PO HS 08/12/16 08/12/16 Menthol [Biofreeze] 1 each QID PRN 08/12/16 08/12/16 Nystatin [Nystatin Suspension] 5 ml QID 08/12/16 08/12/16 Previous Rx's Medication Instructions Recorded Nitroglycerin [Nitrostat] 0.4 mg SL PRN PRN #30 tab.subl 02/26/16 LORazepam [Ativan] 1 mg PO HS #10 07/12/16 Furosemide [Lasix] 20 mg PO BIDDIURETIC tablet 07/27/16 HYDROcodone/Acet 7.5/325 mg [[place] 1 tab PO Q3H PRN #240 tablet 08/01/16 7.5-325 mg] Levofloxacin [Levaquin] 750 mg PO DAILY #3 tablet 08/01/16 Magnesium Oxide [Mag-Ox] 400 mg PO DAILY #30 tablet 08/01/16 PredniSONE 10 mg PO TAPER 12 Days 08/01/16 Allergies Allergy/AdvReac Type Severity Reaction Status Date / Time citalopram [From Celexa] Allergy Abdominal Verified 07/22/16 23:44 Pain haloperidol [From Haldol] Allergy Hallucinati Verified 07/22/16 23:44 ng amlodipine [From Norvasc] AdvReac Nausea Verified 07/22/16 23:44 roflumilast [From Daliresp] AdvReac Difficulty Verified 07/22/16 23:44 Breathing Constitutional: Denies: fever Eyes: Denies: eye pain ENT ED: Denies: ear pain Cardiovascular: Reports: chest pain. Denies: palpitations, dyspnea on exertion Respiratory: Reports: cough, dyspnea. Denies: wheezes Gastrointestinal: Denies: abdominal pain, nausea, vomiting, diarrhea Genitourinary: Denies: urgency, dysuria Musculoskeletal: Denies: back pain Integumentary: Denies: rash Neurological: Denies: headache Past Medical History - Past Medical History Attestation: Yes The following information was validated with the patient. Medical history: Reports: arthritis, CHF, COPD, coronary artery disease, dementia, GERD, hyperlipidemia, hypertension, myocardial infarction, osteoporosis, peripheral artery disease, renal disease, other Surgical history: Reports: cholecystectomy, hysterectomy, BHARATHI/BSO, other Psychiatric history: Reports: anxiety, depression - Social History Smoking Status: Former smoker Smokeless Tobacco Status: No Alcohol use: Reports: none Drug use: Reports: none Physical Exam - General Limitations: altered mental status General appearance: alert, anxious, other (Confused) - Head Head exam: atraumatic, normocephalic, normal inspection - Eye Eye exam: Present: normal appearance, PERRL, EOMI - ENT ENT exam: normal exam, normal oropharynx, mucous membranes moist - Neck Neck exam: Present: normal inspection, full ROM, trachea midline - Chest Chest inspection: Present: normal inspection, symmetric chest wall rise - Respiratory Respiratory exam: Present: other (Mild coarse breath sounds at bilateral lower lobes) - Cardiovascular Cardiovascular exam: Present: regular rate, normal rhythm, normal heart sounds - Abdominal Exam Abdominal exam: Present: soft, Non-Tender. Absent: tenderness, distention, guarding, rebound, rigidity - Extremities Exam Extremities exam: Present: full ROM, other (Venous stasis with associated venous stasis dermatitis of bilateral lower extremities). Absent: tenderness, pedal edema - Back Exam Back exam: Present: normal inspection, full ROM. Absent: tenderness - Neurological Exam Neurological exam: Present: alert, other (Confused, not oriented to person place or time.) - Psychiatric Psychiatric exam: Present: agitated, anxious - Skin Skin exam: Present: warm, dry, intact, normal color Course Course Narrative: On my exam, the patient had normal vital signs. On exam, patient had no reproducible pain with palpation of the chest. Mild coarse breath sounds in bilateral lower lobes. She was alert. Oriented to person, place, or time. Very confused, anxious, agitated on exam. Otherwise, the rest of the physical exam was fairly benign. Cardiac workup and chest x-ray, CT of the head were obtained due to altered mental status. UA was also obtained. UA showed no signs of UTI. CT the head was negative for any acute intracranial abnormality, chest x-ray showed signs of COPD but no acute cardio pulmonary process. Labs reviewed. Leukocytosis noted with left shift. Dehydration with elevated creatinine and hypernatremia. Patient also noted to have an elevated troponin of 0.1. EKG does show some new T-wave inversions anteriorly. Patient will be admitted for further workup and care. Vital Signs Temperature 97.0 F L 08/12/16 00:37 Pulse Rate 93 08/12/16 00:37 Respiratory Rate 22 08/12/16 00:37 Blood Pressure 105/45 08/12/16 00:37 O2 Sat by Pulse Oximetry 94 L 08/12/16 00:37 Temperature 98.4 F 08/12/16 04:46 Pulse Rate 91 08/12/16 04:46 Respiratory Rate 20 08/12/16 04:46 Blood Pressure 118/71 08/12/16 04:46 O2 Sat by Pulse Oximetry 94 L 08/12/16 01:16 Oxygen Delivery Oxygen Delivery Nasal Cannula Altered Mental Status - MDM Narrative Medical decision making narrative: On my exam, the patient had normal vital signs. On exam, patient had no reproducible pain with palpation of the chest. Mild coarse breath sounds in bilateral lower lobes. She was alert. Oriented to person, place, or time. Very confused, anxious, agitated on exam. Otherwise, the rest of the physical exam was fairly benign. Cardiac workup and chest x-ray, CT of the head were obtained due to altered mental status. UA was also obtained. UA showed no signs of UTI. CT the head was negative for any acute intracranial abnormality, chest x-ray showed signs of COPD but no acute cardio pulmonary process. Labs reviewed. Leukocytosis noted with left shift. Dehydration with elevated creatinine and hypernatremia. Patient also noted to have an elevated troponin of 0.1. EKG does show some new T-wave inversions anteriorly. Patient will be admitted for further workup and care. - Medical Records Medical records reviewed: Yes I reviewed the patient's medical records. - Lab Data Lab results reviewed: Yes I reviewed the patient's lab results. Result diagrams: 08/12/16 01:32 08/12/16 01:32 Lab Results 08/12/16 08/12/16 08/12/16 Range/Units 01:32 01:32 01:32 WBC 14.9 H (4.3-11.1) K/mcL RBC 3.14 L (3.82-4.97) M/mcL Hgb 9.3 L (11.5-15.4) g/dL Hct 30.6 L (35.3-44.9) % MCV 97.5 (83.0-100.0) fL MCH 29.6 (28.0-33.3) pg MCHC 30.4 L (31.6-35.5) g/dL RDW 15.9 H (11.5-14.5) % Plt Count 253 (140-400) K/mcL MPV 9.7 (9.4-12.4) fL Immature Gran % 0.7 (0-4) % Seg Neutrophils % 90.0 % Lymphocytes % 4.1 % Monocytes % 4.6 % Eosinophils % 0.5 % Basophils % 0.1 % Neutrophils # 13.4 H (1.6-8.9) K/mcL Lymphocytes # 0.6 (0.6-4.6) K/mcL Monocytes # 0.7 (0.0-1.3) K/mcL Eosinophils # 0.1 (0.0-0.6) K/mcL Basophils # 0.0 (0.0-0.2) K/mcL PT 14.3 H (9.4-12.1) Seconds INR 1.3 APTT 26.0 (26.0-36.0) Seconds Sodium 151 H (136-145) mEq/L Potassium 4.2 (3.5-4.5) mEq/L Chloride 116 H (98-109) mEq/L Carbon Dioxide 25 (19-29) mEq/L BUN 41 H (7-20) mg/dL Creatinine 1.52 H (0.57-1.11) mg/dL Est GFR ( Amer) 40 L (> 60) Est GFR (Non-Af Amer) 33 L (> 60) BUN/Creatinine Ratio 27 H (6-26) Glucose 76 (70-99) mg/dL Calculated Osmolality 321 H (280-300) Calcium 8.5 L (8.6-10.8) mg/dL Total Bilirubin 0.4 (0.2-1.2) mg/dL Direct Bilirubin 0.2 (0.0-0.5) mg/dL Indirect Bilirubin 0.2 (0.0-1.2) mg/dL AST 18 (5-34) Units/L ALT 11 (0-55) Units/L Alkaline Phosphatase 91 (38-126) Units/L Ammonia (18-72) mcmol/L Troponin I (0-0.03) ng/mL Serum Total Protein 5.9 L (6.0-8.3) g/dL Albumin 2.3 L (3.5-5.0) g/dL Globulin 3.6 H (2.4-3.5) g/dL Albumin/Globulin Ratio 0.6 L (1.1-2.2) TSH 2.621 (0.350-4.840) mcIU/mL Urine Color (Yellow) Urine Clarity (Clear) Urine pH (5.0-8.0) pH Units Ur Specific [place] (1.010-1.025) Urine Protein (Neg-Trace) mg/dL Urine Glucose (UA) (Normal) mg/dL Urine Ketones (Negative) mg/dL Urine Blood (Negative) Urine Nitrite (Negative) Urine Bilirubin (Negative) Urine Urobilinogen (Normal) mg/dL Ur Leukocyte Esterase (Negative) Ur Culture Indicated? (NO) Ethyl Alcohol < 10 (0-10) mg/dL 08/12/16 08/12/16 08/12/16 Range/Units 01:32 01:32 02:10 WBC (4.3-11.1) K/mcL RBC (3.82-4.97) M/mcL Hgb (11.5-15.4) g/dL Hct (35.3-44.9) % MCV (83.0-100.0) fL MCH (28.0-33.3) pg MCHC (31.6-35.5) g/dL RDW (11.5-14.5) % Plt Count (140-400) K/mcL MPV (9.4-12.4) fL Immature Gran % (0-4) % Seg Neutrophils % % Lymphocytes % % Monocytes % % Eosinophils % % Basophils % % Neutrophils # (1.6-8.9) K/mcL Lymphocytes # (0.6-4.6) K/mcL Monocytes # (0.0-1.3) K/mcL Eosinophils # (0.0-0.6) K/mcL Basophils # (0.0-0.2) K/mcL PT (9.4-12.1) Seconds INR APTT (26.0-36.0) Seconds Sodium (136-145) mEq/L Potassium (3.5-4.5) mEq/L Chloride (98-109) mEq/L Carbon Dioxide (19-29) mEq/L BUN (7-20) mg/dL Creatinine (0.57-1.11) mg/dL Est GFR ( Amer) (> 60) Est GFR (Non-Af Amer) (> 60) BUN/Creatinine Ratio (6-26) Glucose (70-99) mg/dL Calculated Osmolality (280-300) Calcium (8.6-10.8) mg/dL Total Bilirubin (0.2-1.2) mg/dL Direct Bilirubin (0.0-0.5) mg/dL Indirect Bilirubin (0.0-1.2) mg/dL AST (5-34) Units/L ALT (0-55) Units/L Alkaline Phosphatase (38-126) Units/L Ammonia 23 (18-72) mcmol/L Troponin I 0.10 H* (0-0.03) ng/mL Serum Total Protein (6.0-8.3) g/dL Albumin (3.5-5.0) g/dL Globulin (2.4-3.5) g/dL Albumin/Globulin Ratio (1.1-2.2) TSH (0.350-4.840) mcIU/mL Urine Color Yellow (Yellow) Urine Clarity Clear (Clear) Urine pH 7.5 (5.0-8.0) pH Units Ur Specific [place] 1.022 (1.010-1.025) Urine Protein Negative (Neg-Trace) mg/dL Urine Glucose (UA) Normal (Normal) mg/dL Urine Ketones Negative (Negative) mg/dL Urine Blood Negative (Negative) Urine Nitrite Negative (Negative) Urine Bilirubin Negative (Negative) Urine Urobilinogen Normal (Normal) mg/dL Ur Leukocyte Esterase Negative (Negative) Ur Culture Indicated? NO (NO) Ethyl Alcohol (0-10) mg/dL - Radiology Data Radiology results reviewed: Yes I reviewed the patient's radiology results. Chest X-Ray 08/12/16 01:14 IMPRESSION: COPD with no acute finding in the chest. D/ / Olvin Pablo MD / Olvin Pablo MD Interpreting Provider: Olvin Pablo MD Head CT 08/12/16 01:14 IMPRESSION: 1. Technically limited CT due to significant patient motion. 2. No acute intracranial abnormalities are detected. D/ / Olvin Pablo MD / Olvin Pablo MD Interpreting Provider: Olvin Pablo MD - EKG Data EKG attestation: Yes I reviewed and interpreted this EKG. EKG results narrative: 08/12/2016 at 02:19. Normal sinus rhythm. Rate 91. UT interval 122. QTC 469. Normal axis. T-wave inversions in V1, V2, V3 that are new from previous EKG on 12/23/2009 TPA Checklist - LKW: 3-4.5 hrs Add. Contraindications Patient/family understanding: The patient/family members have been counseled and understood the risk, benefit , and alternatives of treatment. S.B.AJayR. - S.B.A.R. Situation: Demographics, MOA Background: Presenting Complaint, Relevant PMH, Meds, & Allergies Assessment: Vital Signs, Course and respsone to treatment, Exam Concerns, Patient/Family Expectation, Pertinant Lab Results, Outstanding Labs Recommendation: Barrier(s) to disposition, Recommendation based on pending studies, treatments, or consults S.B.A.R. Report Given to: Dr. Watson Attestation Statement - Attestation Attestation: I, Elliott Art MD, personally performed a history and physical exam of the patient and discussed their management with the resident. I reviewed the resident's note and agree with the documented findings, medical decision making , and plan of care. 81-year-old female presents to the emergency department by ambulance from a local detention for altered mental status. Family present. They report she has had similar episodes recently related to pneumonia and urinary tract infections. No known fever. Patient is awake and alert but seems confused and agitated. She answers some questions. She denies any pain. She appears to be hallucinating. On examination patient is a thin elderly female in no acute distress. She is alert but confused and disoriented. There is no cyanosis or diaphoresis. Breath sounds are clear and equal bilaterally. Heart regular rate and rhythm. Abdomen is soft and nontender with normal bowel sounds. Labs reviewed. Leukocytosis noted with left shift. Dehydration with elevated creatinine and hypernatremia. Patient also noted to have an elevated troponin of 0.1. EKG does show some new T-wave inversions anteriorly. The hospitalist, Dr. Watson, was consulted and accepted admission of the patient.
[2016-08-12] MEDS ORDERED: *HR* HYDROcodone/Acet 5/325 mg TABLET PO ONE (01:15)
[2016-08-12] MEDS ORDERED: 0.9 % Sodium Chloride 1,000 ML IVC ONE (01:15)
[2016-08-12 01:41] LABS: Basophils % 0.1 %; Eosinophils # 0.1 K/mcL (0.0-0.6); Eosinophils % 0.5 %; Hematocrit 30.6 % (35.3-44.9); Hemoglobin 9.3 g/dL (11.5-15.4); Immature Granulocytes % 0.7 % (0-4); Lymphocytes # 0.6 K/mcL (0.6-4.6); Lymphocytes % 4.1 %; Mean Corpuscular HGB Conc 30.4 g/dL (31.6-35.5); Mean Corpuscular Hemoglobin 29.6 pg (28.0-33.3); Mean Corpuscular Volume 97.5 fL (83.0-100.0); Mean Platelet Volume 9.7 fL (9.4-12.4); Monocytes # 0.7 K/mcL (0.0-1.3); Monocytes % 4.6 %; Neutrophils # 13.4 K/mcL (1.6-8.9); Platelet Count 253 K/mcL (140-400); Red Blood Count 3.14 M/mcL (3.82-4.97); Red Cell Distribution Width 15.9 % (11.5-14.5)
[2016-08-12 01:47] LABS: INR 1.3; Prothrombin Time 14.3 Seconds (9.4-12.1)
[2016-08-12 01:56] LABS: Alanine Aminotransferase 11 Units/L (0-55); Albumin 2.3 g/dL (3.5-5.0); Albumin/Globulin Ratio 0.6 (1.1-2.2); Alkaline Phosphatase 91 Units/L (38-126); Aspartate Amino Transferase 18 Units/L (5-34); BUN/Creatinine Ratio 27 (6-26); Bilirubin,Direct 0.2 mg/dL (0.0-0.5); Bilirubin,Indirect 0.2 mg/dL (0.0-1.2); Bilirubin,Total 0.4 mg/dL (0.2-1.2); Blood Urea Nitrogen 41 mg/dL (7-20); Calcium 8.5 mg/dL (8.6-10.8); Carbon Dioxide 25 mEq/L (19-29); Chloride 116 mEq/L (98-109); Globulin 3.6 g/dL (2.4-3.5); Glucose 76 mg/dL (70-99); Osmolality,Calculated 321 (280-300); Potassium 4.2 mEq/L (3.5-4.5); Sodium 151 mEq/L (136-145); Total Protein 5.9 g/dL (6.0-8.3); eGFR For African Americans 40 (> 60); eGFR For Non-African Americans 33 (> 60)
[2016-08-12 01:57] LABS: Ethanol < 10 mg/dL (0-10)
[2016-08-12 02:17] LABS: Thyroid Stimulating Hormone 2.621 mcIU/mL (0.350-4.840)
[2016-08-12 02:27] LABS: Bilirubin,Urine Negative (Negative); Blood,Urine Negative (Negative); Clarity,Urine Clear (Clear); Color,Urine Yellow (Yellow); Glucose,Urine (UA) Normal (Normal); Ketones,Urine Negative (Negative); Leukocyte Esterase,Urine Negative (Negative); Nitrite,Urine Negative (Negative); PH,Urine 7.5 pH Units (5.0-8.0); Protein,Urine Negative (Neg-Trace); Specific Gravity,Urine 1.022 (1.010-1.025); Urobilinogen,Urine Normal (Normal)
[2016-08-12] MEDS ORDERED: Aspirin 325 MG TABLET PO ONE (03:39)
[2016-08-12] MEDS ORDERED: Naloxone 0.4 MG/ML INJ IVP PRN (07:49)
[2016-08-12] MEDS ORDERED: Acetaminophen 325 MG TABLET PO PRN (07:49)
[2016-08-12] MEDS ORDERED: D5% in Water 1,000 ML IVC SCH (08:00)
[2016-08-12] MEDS ORDERED: *HR* LORazepam 0.5 MG TABLET PO PRN (08:33)
[2016-08-12] MEDS ORDERED: Nitroglycerin 0.4 MG TAB.SUBL SL PRN (08:33)
[2016-08-12] MEDS ORDERED: *HR* LORazepam 2 MG/ML VIAL IVP ONE (08:39)
--- NOTE | 2016-08-12 08:40 | Internal Med History&Physical ---
Date of Encounter: 08/12/16 Time of Encounter: 08:20 Assessment and Plan (1) Acute metabolic encephalopathy Current visit: Yes Status: Acute Admit inpatient. Patient with acute metabolic encephalopathy with underlying dementia. Etiology is currently uncertain but patient does have hypernatremia and appears to be dehydrated with acute kidney injury. Urine analysis and chest x-ray do not show any signs of infection. Patient does have an elevated WBC count. We will treat symptomatically and correct electrolyte abnormalities. Resume home medications. Monitor neuro function closely. Possible causes include delirium related to dementia and possible underlying viral infection. We will check respiratory viral panel. IV hydration. According to previous hospital visit, patient responded well to Wellbutrin that was started here. We will resume this medication. (2) Acute kidney injury superimposed on CKD Current visit: Yes Status: Acute Likely due to dehydration. We will gently hydrate and follow renal function closely. Patient does have underlying chronic kidney disease stage II (3) COPD (chronic obstructive pulmonary disease) Current visit: Yes Status: Chronic Patient with underlying COPD. Will use bronchodilator nebs as needed. Currently does not appear to be in acute exacerbation. Qualifiers: COPD type: emphysema Emphysema type: panlobular Qualified Code(s): J43.1 - Panlobular emphysema (4) Anxiety Current visit: Yes Status: Chronic Uncontrolled. Resume home medications. Continue Ativan as patient uses at home. Will resume Wellbutrin. (5) CAD (coronary artery disease) Current visit: Yes Status: Chronic Continue aspirin, Plavix Simvastatin and metoprolol. Patient does not describe any chest pain. Troponins are slightly elevated but improved from prior hospital visit. Qualifiers: Coronary Disease-Associated Artery/Lesion type: [place] artery [place] vs. transplanted heart: [place] heart Associated angina: angina presence unspecified Qualified Code(s): I25.10 - Atherosclerotic heart disease of [place] coronary artery without angina pectoris (6) Hypernatremia Current visit: Yes Status: Acute Due to dehydration. Will hydrate with dextrose 5% water solution. Follow sodium levels closely and make adjustments to her IV fluids accordingly Internal Medicine - H&P: HPI Chief complaint: Altered mental status Admitted From: Emergency Dept Plans for Post Hospital Care: [facility] History of present illness: Ms. Khalil is a 81 year old female with a history of COPD, congestive heart failure, coronary artery disease, hyperlipidemia, hypertension, recent non-ST elevation [place], and recent pelvic fracture that is being treated nonoperatively presented to the ER with complaints of altered mental status. She resides at residential and has been doing well until 3 days back when she started to develop these symptoms. She was admitted here last month with similar complaints and at that time was diagnosed with urinary tract infection and delirium and then she also developed pneumonia and was treated for that with antibiotics. She had also been receiving multiple psychotropic medications and narcotic medications but seemed to be contributing to her symptoms and her medication regimen has been adjusted and she was discharged on Wellbutrin, Zoloft and she also takes Ativan on that she has been for a long time. She had apparently improved overall. Her symptoms began 3 days back. At baseline, the patient's daughter says that the patient is awake alert and oriented 3 and is able to function independently. Presently the patient is unable to provide much history and history has been obtained through review of ED records, previous hospital stay and from her daughter. Recent has been having cough on and on without much sputum production. She has not been having any fever chills or night sweats. She has not been complaining of any dysuria. She however does complain of shortness of breath and inability to take deep breaths. No chest pain. Past Med Surg Social Fam HX - Past Medical History Source: old records reviewed, obtained from family Medical history: arthritis, CHF, COPD, coronary artery disease, dementia, GERD, hyperlipidemia, hypertension, myocardial infarction, osteoporosis, peripheral artery disease, renal disease, other Psychiatric history: anxiety, depression - Past Surgical History Surgical History: cholecystectomy, hysterectomy, BHARATHI/BSO, other - Social History Smoking Status: Former smoker Smokeless Tobacco Status: No Alcohol use: none Drug use: none - Family History Father Living Status: Hx Family Cardiac Disorders: Yes Hx Family Cancer: Yes (RCC) Mother Living Status: Hx Family Cardiac Disorders: Yes Hx Family Cancer: Yes (bladder cancer) Internal Medicine - H&P: Meds Budesonide/Formoterol 160/4.5 [Symbicort] 2 puff IH BID 02/20/15 [History] Clopidogrel [Plavix] 75 mg PO DAILY 02/20/15 [History] Tiotropium [Spiriva] 18 mcg IH DAILY 02/20/15 [History] Donepezil [Aricept] 10 mg PO HS 04/03/15 [History] Alendronate Sodium [Fosamax] 70 mg PO MO 07/09/15 [History] Ascorbate Calcium [Vitamin C] 500 mg PO DAILY 07/09/15 [History] Aspirin [Adult Low Dose Aspirin EC] 81 mg PO DAILY 07/09/15 [History] Calcium Carbonate/Vitamin D3 [Calcium 500-Vit D3 400 Tablet] 1 tab PO DAILY 04/13 [History] Ferrous Sulfate 325 mg PO DAILY 07/09/15 [History] Isosorbide MONOnitrate (24 HR) [Imdur] 60 mg PO DAILY 07/09/15 [History] Losartan [Cozaar] 100 mg PO DAILY 07/09/15 [History] Metoprolol XL (24 HR) Succ [Toprol Xl] 25 mg PO DAILY 07/09/15 [History] Simvastatin [Zocor] 20 mg PO QPM 07/09/15 [History] Hydralazine HCl 50 mg PO TID 11/27/15 [History] Cholecalciferol (D-3) [Vitamin D] 1,000 unit PO DAILY 02/22/16 [History] Nitroglycerin [Nitrostat] 0.4 mg SL PRN PRN #30 tab.subl 02/26/16 [Rx] Albuterol Neb [Proventil Neb] 2.5 mg IH Q4HR 07/04/16 [History] LORazepam [Ativan] 1 mg PO HS #10 07/12/16 [Rx] Multivitamin [Multi-Day Vitamins] 1 tab PO DAILY 07/23/16 [History] Potassium Chloride 20 meq PO BID 07/23/16 [History] Furosemide [Lasix] 20 mg PO BIDDIURETIC tablet 07/27/16 [Rx] HYDROcodone/Acet 7.5/325 mg [[place] 7.5-325 mg] 1 tab PO Q3H PRN #240 tablet 11/12 [Rx] Levofloxacin [Levaquin] 750 mg PO DAILY #3 tablet 08/01/16 [Rx] Magnesium Oxide [Mag-Ox] 400 mg PO DAILY #30 tablet 08/01/16 [Rx] PredniSONE 10 mg PO TAPER 12 Days 08/01/16 [Rx] Ipratropium/Albuterol Neb [Duoneb] 3 ml IH Q4HR PRN 08/12/16 [History] LORazepam [Lorazepam] 0.5 mg PO Q8HR PRN 08/12/16 [History] Megestrol Acetate 800 mg PO DAILY 08/12/16 [History] Melatonin 5 mg PO HS 08/12/16 [History] Menthol [Biofreeze] 1 each QID PRN 08/12/16 [History] Nystatin [Nystatin Suspension] 5 ml QID 08/12/16 [History] Allergies citalopram [From Celexa] Allergy (Verified 07/22/16 23:44) Abdominal Pain haloperidol [From Haldol] Allergy (Verified 07/22/16 23:44) Hallucinating amlodipine [From Norvasc] Adverse Reaction (Verified 07/22/16 23:44) Nausea roflumilast [From Daliresp] Adverse Reaction (Verified 07/22/16 23:44) Difficulty Breathing ROS unobtainable: due to mental status All Systems PM: A 10-system review of systems was performed and is negative for pertinent findings except as documented above in the HPI. Review of systems: Most of the review of systems has been obtained through discussion with the patient's daughter and patient's current altered mental status. - Constitutional Constitutional: lethargy, malaise, no chills, no fever(s), no night sweats - EENT Eyes: no change in vision, no discharge, no pain, no photophobia Ears: no ear discharge, no ear pain, no tinnitus Nose, mouth and throat: no dysphagia, no nasal discharge, no neck pain, no sore throat - Cardiovascular Cardiovascular ROS IM: no chest pain, no diaphoresis, no dyspnea, no lightheadedness, no palpitations, no syncope - Respiratory Respiratory: cough, dyspnea, no wheezing, no excessive phlegm production - Gastrointestinal Gastrointestinal: no abdominal pain, no diarrhea, no hematemesis, no hematochezia, no melena, no nausea, no vomiting - Genitourinary Genitourinary: no change in urinary stream, no dysuria, no flank pain, no hematuria - Musculoskeletal Musculoskeletal ROS IM: no numbness, no tingling - Integumentary Integumentary IM: no rash, no unusual bruising - Neurological Neurological ROS: no confusion, no convulsions, no focal weakness, no numbness, no tingling, no tremor(s) - Hematologic/Lymphatic Hematologic/Lymphatic: no easy bruising - Constitutional Vitals: Temp Pulse Resp BP Pulse Ox 99.4 F 103 20 136/60 95 08/12/16 07:37 08/12/16 07:37 08/12/16 07:37 08/12/16 07:37 08/12/16 07:37 General appearance: Present: A&O X 1, answers questions appropriately Exam: Moderate distress - Neck Neck exam general surgery: Present: supple, trachea midline. Absent: lymphadenopathy - Respiratory Respiratory exam: Present: CTAB, prolonged expiratory phase, tachypnea. Absent : accessory muscle use, rales, rhonchi, wheezes - Cardiovascular Cardiovascular exam: Present: RRR, +S1, +S2. Absent: diastolic murmur, gallop, rubs, systolic murmur - GI/Abdominal GI/Abdominal exam: Present: normal bowel sounds, soft, no peritoneal signs. Absent: distended, tenderness - Extremities Exam Extremities exam: Present: warm, radial pulses palpable and symetrical. Absent : calf tenderness, cyanotic, pedal edema - Neurological Exam Neurological exam: Present: alert, CN II-XII intact, no focal deficits, strengths equal and symetr throughout. Absent: facial droop, speech deficit - Psychiatric Psychiatric exam: Present: anxious - Skin Skin exam: Present: dry, intact Internal Med - H&P Results - Labs CBC & Chem 7: 08/12/16 01:32 08/12/16 01:32 - Impressions Impressions Chest X-Ray 08/12/16 01:14 IMPRESSION: COPD with no acute finding in the chest. D/ / Olvin Pablo MD / Olvin Pablo MD Interpreting Provider: Olvin Pablo MD Head CT 08/12/16 01:14 IMPRESSION: 1. Technically limited CT due to significant patient motion. 2. No acute intracranial abnormalities are detected. D/ / Olvin Pablo MD / Olvin Pablo MD Interpreting Provider: Olvin Pablo MD - Attending Attestation This document has been at least partially created by [id number] recognition technology by Dr. Fink. Errors in grammar, wording or other phrases may exist. If errors are found after the documentation is signed, they will be addressed individually in the addendum section of this document when appropriate.
[2016-08-12] MEDS: Cholecalciferol (D-3) 1,000 UNIT TABLET PO SCH (09:54)
[2016-08-12] MEDS: Ascorbic Acid 500 MG TABLET PO SCH (09:54)
[2016-08-12] MEDS: Metoprolol XL (24 HR) Succ 25 MG TAB.ER.24H PO SCH (09:54)
[2016-08-12] MEDS: hydrALAZINE 25 MG TABLET PO SCH ×3 (09:54→22:30)
[2016-08-12] MEDS: Isosorbide MONOnitrate (24 HR) 60 MG TAB.ER.24H PO SCH (09:54)
[2016-08-12] MEDS: Magnesium Oxide 400 MG TABLET PO SCH (09:55)
[2016-08-12] MEDS: Nystatin SUSP 5 ML UD.LIQ BC SCH ×4 (09:55→22:28)
[2016-08-12] MEDS: Aspirin Enteric Coated 81 MG Tablet PO SCH (09:55)
[2016-08-12] MEDS: Megestrol Acetate 400 MG/10 ML UDC PO SCH (09:55)
[2016-08-12] MEDS: Multivit/Ca/Min/Fe/FA 1 TAB TABLET PO SCH (09:56)
[2016-08-12] MEDS: Albuterol 2.5 MG/3 ML NEBULIZER IH SCH ×3 (10:32→20:50)
[2016-08-12] MEDS: Budesonide/Formoterol 160/4.5 MDI IH SCH ×2 (10:32→21:04)
[2016-08-12] MEDS: BuPROPion SR (12 HR) 100 MG TABLET PO SCH ×2 (11:32→22:29)
[2016-08-12 13:31] LABS: Adenovirus Not Detected (Not Detect); Bordetella Pertussis Not Detected (Not Detect); Chlamydophila pneumoniae Not Detected (Not Detect); Coronavirus 229E Not Detected (Not Detect); Coronavirus HKU1 Not Detected (Not Detect); Coronavirus NL63 Not Detected (Not Detect); Coronavirus OC43 Not Detected (Not Detect); Human Metapneumovirus Not Detected (Not Detect); Human Rhinovirus/Enterovirus Not Detected (Not Detect); Influenza A Subtype 2009 H1 Not Detected (Not Detect); Influenza A Untypeable Not Detected (Not Detect); Influenza B Not Detected (Not Detect); Mycoplasma pneumoniae Not Detected (Not Detect); Parainfluenza Virus 1 Not Detected (Not Detect); Parainfluenza Virus 2 Not Detected (Not Detect); Parainfluenza Virus 3 Not Detected (Not Detect); Parainfluenza Virus 4 Not Detected (Not Detect); Respiratory Syncytial Virus ***DETECTED*** (Not Detect)
[2016-08-12 14:49] LABS: Calcium 8.1 mg/dL (8.6-10.8); Potassium 4.1 mEq/L (3.5-4.5)
--- NOTE | 2016-08-12 15:10 | Electrocardiograph Report ---
[place] [id number] Test Date: 2016-08-12 Pat Name: Mayra Khalil Department: 104 Room: [id number] Gender: F Hide Trimmer: : [id number] Requested By: Jorge Martinez Order Number: [id number] Reading MD: Nina Torres Measurements Intervals [place] Rate: 91 P: 84 MT: 122 QRS: 56 QRSD: 104 T: 134 QT: 421 QTc: 469 Interpretive Statements SINUS RHYTHM ST DEVIATION AND MODERATE T-WAVE ABNORMALITY, CONSIDER ANTEROLATERAL ISCHEMIA Electronically Signed On 08-12-2016 15:08:33 EDT by Nina Torres
[2016-08-12] MEDS ORDERED: Ziprasidone 20 MG CAPSULE PO ONE (16:22)
[2016-08-12] MEDS: *HR* Heparin 5,000 UNIT/ML VIAL SQ SCH (16:31)
--- NOTE | 2016-08-12 16:59 | Palliative - Consult Note ---
Date of Encounter: 08/12/16 Time of Encounter: 16:57 - Assessment and Plan (1) Anxiety Current Visit: Yes Status: Chronic Assessment and plan: I believe the anxiety and agitation are all secondary to delirium in all likelihood this is multifactorial in nature. The vet the primary cause is probably the viral upper respiratory infection that she has as she is very susceptible to altered mental status with these types of things. He does appear to be contaminated, however this bears further watching as does her troponin being very lightly elevated. This could represent another small non- STEMI, however in all likelihood this is still related to her previous non- STEMI. My overall recommendation is to treat the underlying causes of the delirium, and use medication sparingly as she has had paradoxical reactions in the past. Darlin, I have written for Benadryl to be used as an acute antianxiety agent as well continue her other medications currently. I do not see any major serotonergic medications Lopressor is not elevated so I am less concerned about serotonin syndrome. Had increased her risperidone to 1 mg twice a day with her renal function this is as much as I would want to go up on this at this time. Used to Geodon sparingly and I would use Ativan sparingly as well. I do recommend a sitter for her. (2) Goals of care, counseling/discussion Current Visit: Yes Status: Acute Assessment and plan: Agent is DNR CCA DNI, overall patient's goals of care to return for her rehabilitation finish out her rehabilitation and try to return home. Family is aware of the seriousness of the condition. Hospice was discussed with them during the last hospitalization and will be followed up with during this one. (3) DANIEL (acute kidney injury) Current Visit: Yes Status: Acute Assessment and plan: Acute kidney injury is probably due to prerenal azotemia. Patient is getting fluids that does need increased free water as she is hypernatremic and this is being given at this time this be followed up by the hospitalist team. (4) Acute metabolic encephalopathy Current Visit: Yes Status: Acute Assessment and plan: Since secondary to acute delirium. Please see the above description of the anxiety I agree with the Geodon but would use those sparingly Ativan use so sparingly I have increased the risperidone as the patient seemed to be tolerating this and I have also written for some Benadryl. (5) Delirium Current Visit: No Status: Acute Assessment and plan: Believe this is the root cause of her metabolic encephalopathy please see above notes regarding treatment of the same. He is under the care of the hospitalist team. I have made my recommendations above. The patient has been urinating normally. I believe that her pain is under adequate control. Does have medication however for pain, I have increased her bowel regimen to clear her constipation is not hypo-glycemic she does not appear to be hypovolemic and is elevated we are checking into infection seemed to be having a paradoxical reaction to Ativan would minimize the use of this he is urinating on a regular basis I do not find anything on the physical exam to suggest areas constipation or serious bladder retention, however I have increased her bowel regimen to get her cleaned out. She is saturating well. Of note she does have a known respiratory infection secondary to virus. 4 I believe that the main problem here is probably infection causing the delirium. Palliative-CN HPI - Data of Consult Patient: known to practice within the last 3 years Requesting Physician: Kenyon Watson MD Primary Care Provider: PCP NO - Consult Narrative Palliative Care/Comfort Measures: Palliative care Reason for consult: Symptom management for agitation History of present illness: Ms. Khalil is a 81 year old female Patient is known to the palliative care service from previous hospitalization. The patient had a recent fall that resulted in a pelvis fracture. The patient was hospitalized for altered mental status at the rehabilitation facility. The patient did have a urinary tract infection as well as pneumonia this was successfully treated. During that time she also had waxing and waning of her mental status which seem to be related to medications The patient was discharged and did well initially, however over the last few days she has had increasing alteration of her mental status. And it appears that Ativan is even making her more agitated rather than less. She has been having trouble with constipation, did have a bowel movement approximately 3 days ago. That she had been somewhat obstipated but got better with a within enema. This time she is found to have acute metabolic encephalopathy, which she is being admitted asked x-ray does not show any signs of infection her urine may be contaminated, but she does have an increased white blood cell count. Electrolyte abnormalities with a increased serum sodium has some early renal failure. He has since been diagnosed with RSV. At this time she is completely nonverbal but appears very agitated. Avandia does not seem to be working well for her. Status is DNR CCA DNI per family discussion last hospitalization please see the assessment and plan. Unable to give me any assistance with a history and physical. All all information comes from the chart and from the family. CC: Kenyon Watson MD Altered mental status Past Med Surg Social Fam HX - Past Medical History Medical history: arthritis, CHF, COPD, coronary artery disease, dementia, GERD, hyperlipidemia, hypertension, myocardial infarction, osteoporosis, peripheral artery disease, renal disease, other Psychiatric history: anxiety, depression - Past Surgical History Surgical History: cholecystectomy, hysterectomy, BHARATHI/BSO, other - Social History Smoking Status: Former smoker Smokeless Tobacco Status: No Alcohol use: none Drug use: none - Family History Father Living Status: Hx Family Cardiac Disorders: Yes Hx Family Cancer: Yes (RCC) Mother Living Status: Hx Family Cardiac Disorders: Yes Hx Family Cancer: Yes (bladder cancer) Medications and Allergies Budesonide/Formoterol 160/4.5 [Symbicort] 2 puff IH BID 02/20/15 [History] Clopidogrel [Plavix] 75 mg PO DAILY 02/20/15 [History] Tiotropium [Spiriva] 18 mcg IH DAILY 02/20/15 [History] Donepezil [Aricept] 10 mg PO HS 04/03/15 [History] Alendronate Sodium [Fosamax] 70 mg PO MO 07/09/15 [History] Ascorbate Calcium [Vitamin C] 500 mg PO DAILY 07/09/15 [History] Aspirin [Adult Low Dose Aspirin EC] 81 mg PO DAILY 07/09/15 [History] Calcium Carbonate/Vitamin D3 [Calcium 500-Vit D3 400 Tablet] 1 tab PO DAILY 04/13 [History] Ferrous Sulfate 325 mg PO DAILY 07/09/15 [History] Isosorbide MONOnitrate (24 HR) [Imdur] 60 mg PO DAILY 07/09/15 [History] Losartan [Cozaar] 100 mg PO DAILY 07/09/15 [History] Metoprolol XL (24 HR) Succ [Toprol Xl] 25 mg PO DAILY 07/09/15 [History] Simvastatin [Zocor] 20 mg PO QPM 07/09/15 [History] Hydralazine HCl 50 mg PO TID 11/27/15 [History] Cholecalciferol (D-3) [Vitamin D] 1,000 unit PO DAILY 02/22/16 [History] Nitroglycerin [Nitrostat] 0.4 mg SL PRN PRN #30 tab.subl 02/26/16 [Rx] Albuterol Neb [Proventil Neb] 2.5 mg IH Q4HR 07/04/16 [History] LORazepam [Ativan] 1 mg PO HS #10 07/12/16 [Rx] Multivitamin [Multi-Day Vitamins] 1 tab PO DAILY 07/23/16 [History] Potassium Chloride 20 meq PO BID 07/23/16 [History] Furosemide [Lasix] 20 mg PO BIDDIURETIC tablet 07/27/16 [Rx] HYDROcodone/Acet 7.5/325 mg [[place] 7.5-325 mg] 1 tab PO Q3H PRN #240 tablet 11/12 [Rx] Levofloxacin [Levaquin] 750 mg PO DAILY #3 tablet 08/01/16 [Rx] Magnesium Oxide [Mag-Ox] 400 mg PO DAILY #30 tablet 08/01/16 [Rx] PredniSONE 10 mg PO TAPER 12 Days 08/01/16 [Rx] Ipratropium/Albuterol Neb [Duoneb] 3 ml IH Q4HR PRN 08/12/16 [History] LORazepam [Lorazepam] 0.5 mg PO Q8HR PRN 08/12/16 [History] Megestrol Acetate 800 mg PO DAILY 08/12/16 [History] Melatonin 5 mg PO HS 08/12/16 [History] Menthol [Biofreeze] 1 appl TP QID PRN 08/12/16 [History] Nystatin [Nystatin Suspension] 5 ml PO QID 08/12/16 [History] Allergies citalopram [From Celexa] Allergy (Verified 07/22/16 23:44) Abdominal Pain haloperidol [From Haldol] Allergy (Verified 07/22/16 23:44) Hallucinating amlodipine [From Norvasc] Adverse Reaction (Verified 07/22/16 23:44) Nausea roflumilast [From Daliresp] Adverse Reaction (Verified 07/22/16 23:44) Difficulty Breathing ROS unobtainable: due to mental status Palliative Care-Exam - Constitutional Vitals: Temp Pulse Resp BP Pulse Ox 99.5 F 92 18 110/65 97 08/12/16 16:10 08/12/16 16:10 08/12/16 16:52 08/12/16 16:10 08/12/16 16:52 General appearance: Present: mild distress (Appears very restless.) - Head Head Exam: Present: atraumatic, normal inspection - Eye Eye exam: Present: normal appearance - ENT ENT exam: Present: mucous membranes moist - Respiratory Respiratory exam: Present: decreased breath sounds (Some upper airway noise.) - Cardiovascular Cardiovascular exam: Present: RRR - GI/Abdominal Exam GI/Abdominal exam: Present: diminished bowel sounds (No tympany or distention), soft. Absent: distended, firm, guarding, tenderness - Rectal Rectal exam: Present: deferred - External exam: Absent: normal external exam (Still a small amount of redness around the vulva, there is no discharge noted. This is an extremely limited exam.) - Neurological Exam Neurological exam: Present: altered - Psychiatric Psychiatric exam: Present: agitated, anxious - Skin Skin exam: Present: dry, warm Internal Medicine - CN: Reslt - Labs CBC & Chem 7: 08/12/16 01:32 08/12/16 14:21 Labs: BMP 08/12/16 14:21 Sodium 151 H Potassium 4.1 Chloride 120 H Carbon Dioxide 23 BUN 42 H Creatinine 1.32 H Glucose 98 Calcium 8.1 L - ABG Interpretation ABG results: PT/INR, D-dimer PT 14.3 Seconds (9.4-12.1) H 08/12/16 01:32 Consult Discharge Plan - Plan Referrals: NO,PCP [Primary Care Provider] - Palliative Quality Palliative Quality: Screen for Code Status: Yes, Screen for Goals of Care: Yes, Screen for Pain: Yes, If Pain Regimen Started, Initiate Bowel Regimen: NA, Screen for Nausea/Vomitting: Yes Code Status: 08/12/16 07:49 Resuscitation Status: Active [RES] Routine Comment: Resuscitation Status: [id number]
[2016-08-12] MEDS ORDERED: risperiDONE 1 MG TABLET PO SCH (21:00)
[2016-08-12] MEDS ORDERED: *HR* LORazepam 1 MG TABLET PO SCH (21:00)
[2016-08-12] MEDS ORDERED: risperiDONE 0.25 MG TABLET PO SCH (21:00)
[2016-08-12] MEDS ORDERED: Ziprasidone 20 MG CAPSULE PO SCH (21:00)
[2016-08-12] MEDS: Sennosides/Docusate Sodium TABLET PO SCH (22:18)
[2016-08-12] MEDS: Melatonin 3 MG TABLET PO SCH (22:29)
[2016-08-12] MEDS: Clotrimazole Vag CRM 45 GM TUBE VG SCH (22:31)
[2016-08-12] MEDS: *HR* HYDROcodone/Acet 7.5/325 mg TABLET PO PRN (22:40)
[2016-08-13] MEDS: Albuterol 2.5 MG/3 ML NEBULIZER IH SCH ×7 (00:05→23:39)
[2016-08-13] MEDS ORDERED: Ziprasidone 20 MG CAPSULE PO ONE (01:09)
[2016-08-13 05:05] LABS: Basophils % 0.1 %; Eosinophils # 0.1 K/mcL (0.0-0.6); Eosinophils % 0.7 %; Hematocrit 27.7 % (35.3-44.9); Hemoglobin 8.3 g/dL (11.5-15.4); Immature Granulocytes % 0.8 % (0-4); Lymphocytes # 0.5 K/mcL (0.6-4.6); Mean Corpuscular Hemoglobin 29.6 pg (28.0-33.3); Mean Corpuscular Volume 98.9 fL (83.0-100.0); Mean Platelet Volume 10.1 fL (9.4-12.4); Monocytes # 0.6 K/mcL (0.0-1.3); Monocytes % 4.9 %; Neutrophils # 11.6 K/mcL (1.6-8.9); Platelet Count 218 K/mcL (140-400); Red Cell Distribution Width 16.1 % (11.5-14.5); Segmented Neutrophils % 89.5 %
[2016-08-13 05:16] LABS: Calcium 8.2 mg/dL (8.6-10.8)
[2016-08-13] MEDS: *HR* Heparin 5,000 UNIT/ML VIAL SQ SCH ×2 (06:02→18:42)
[2016-08-13] MEDS: Budesonide/Formoterol 160/4.5 MDI IH SCH ×2 (08:25→21:06)
[2016-08-13] MEDS: Isosorbide MONOnitrate (24 HR) 60 MG TAB.ER.24H PO SCH (10:57)
[2016-08-13] MEDS: Aspirin Enteric Coated 81 MG Tablet PO SCH (10:59)
[2016-08-13] MEDS: BuPROPion SR (12 HR) 100 MG TABLET PO SCH ×2 (10:59→23:12)
[2016-08-13] MEDS: Metoprolol XL (24 HR) Succ 25 MG TAB.ER.24H PO SCH (10:59)
[2016-08-13] MEDS: hydrALAZINE 25 MG TABLET PO SCH ×3 (11:00→23:12)
[2016-08-13] MEDS: *HR* HYDROcodone/Acet 7.5/325 mg TABLET PO PRN (11:17)
[2016-08-13] MEDS ORDERED: *HR* Morphine 2 MG/ML SYRINGE ONE (12:33)
[2016-08-13] MEDS: *HR* Morphine 2 MG/ML SYRINGE IVP PRN (12:48)
--- NOTE | 2016-08-13 13:15 | Internal Med Progress Note ---
Date of Encounter: 08/13/16 Time of Encounter: 13:13 - Assessment and plan (1) Acute and chronic respiratory failure with hypoxia Current Visit: No Status: Acute Assessment and plan: Acute metabolic encephalopathy due to acute on chronic hypoxic respiratory failure secondary to acute COPD exacerbation due to RSV/viral infection in combination with possible pulmonary vascular congestion in the setting of history of systolic CHF/possible exacerbation Start Lasix IV, strict I's and O's and daily weight Start Solu-Medrol, continue oxygen and nebulizers (2) Polymyalgia rheumatica Current Visit: No Status: Chronic Assessment and plan: Continue steroids (3) CHF (congestive heart failure) Current Visit: No Status: Chronic Qualifiers: Congestive heart failure type: combined Congestive heart failure chronicity : acute on chronic Qualified Code(s): I50.43 - Acute on chronic combined systolic (congestive) and diastolic (congestive) heart failure (4) COPD (chronic obstructive pulmonary disease) Current Visit: Yes Status: Chronic Qualifiers: COPD type: emphysema Emphysema type: panlobular Qualified Code(s): J43.1 - Panlobular emphysema (5) Elevated troponin level Current Visit: No Status: Resolved Assessment and plan: Likely secondary to demand ischemia (6) Anxiety Current Visit: Yes Status: Chronic Assessment and plan: Exacerbated by benzodiazepine withdrawal Restart standing dose of Ativan IV (7) Inferior pubic ramus fracture Current Visit: No Status: Acute Qualifiers: Encounter type: initial encounter Fracture type: closed Laterality: right Qualified Code(s): S32.591A - Other specified fracture of right pubis, initial encounter for closed fracture (8) Dementia Current Visit: No Status: Chronic Qualifiers: Dementia type: Alzheimer's disease Alzheimer's disease onset: late-onset Dementia behavioral disturbance: without behavioral disturbance Qualified Code (s): G30.1 - Alzheimer's disease with late onset; F02.80 - Dementia in other diseases classified elsewhere without behavioral disturbance (9) MGUS (monoclonal gammopathy of unknown significance) Current Visit: No Status: Chronic (10) DANIEL (acute kidney injury) Current Visit: Yes Status: Acute Assessment and plan: Improving, monitor creatinine (11) Hypernatremia Current Visit: Yes Status: Acute Assessment and plan: Unclear etiology Continue D5 at a lower rate of 50 mL/h with the use of Lasix Monitor sodium - Time Spent With Patient Greater than 35 minutes - Subjective Interval history: The patient is extremely anxious and short of breath, unable to complete review of systems due to confusion - Constitutional Vitals: Temp Pulse Resp BP Pulse Ox 100.4 F H 95 18 124/50 96 08/13/16 11:36 08/13/16 11:36 08/13/16 11:36 08/13/16 11:36 08/13/16 11:40 General appearance: Present: A&O X 1, answers questions appropriately - Head Head exam: Present: atraumatic, normocephalic - Eye Eye exam: Present: PERRL, conjuntiva pink, sclera anicteric Pupils: Present: PERRL - Neck Neck exam general surgery: Present: supple, trachea midline. Absent: lymphadenopathy - Respiratory Respiratory exam: Present: CTAB, rales (Acute diffuse crackles). Absent: accessory muscle use, rhonchi, wheezes - Cardiovascular Cardiovascular exam: Present: RRR, +S1, +S2. Absent: diastolic murmur, gallop, rubs, systolic murmur - GI/Abdominal GI/Abdominal exam: Present: normal bowel sounds, soft, no peritoneal signs. Absent: distended, tenderness - Extremities Exam Extremities exam: Present: pedal edema (+ 1 pitting edema in both lower extremities), warm, radial pulses palpable and symetrical. Absent: calf tenderness, cyanotic - Neurological Exam Neurological exam: Present: CN II-XII intact, no focal deficits. Absent: oriented X3, pronater drift, facial droop, speech deficit - Skin Skin exam: Present: dry, intact Internal Medicine: Result - Labs CBC & Chem 7: 08/13/16 04:30 08/13/16 04:30 Labs: Short CBC 08/13/16 Range/Units 04:30 WBC 13.0 H (4.3-11.1) K/mcL Hgb 8.3 L (11.5-15.4) g/dL Hct 27.7 L (35.3-44.9) % Plt Count 218 (140-400) K/mcL Neutrophils # 11.6 H (1.6-8.9) K/mcL BMP 08/12/16 08/13/16 08/13/16 14:21 04:30 04:30 Sodium 151 H 150 H 151 H Potassium 4.1 4.0 Chloride 120 H 119 H Carbon Dioxide 23 25 BUN 42 H 47 H Creatinine 1.32 H 1.15 H Glucose 98 84 Calcium 8.1 L 8.2 L Cardiac Enzymes 08/13/16 Range/Units 04:30 Troponin I 0.11 H* (0-0.03) ng/mL - ABG Interpretation ABG results: PT/INR, D-dimer PT 14.3 Seconds (9.4-12.1) H 08/12/16 01:32 Consult Discharge Plan - Plan Referrals: NO,PCP [Primary Care Provider] -
[2016-08-13] MEDS: Sennosides/Docusate Sodium TABLET PO SCH ×2 (13:57→23:12)
[2016-08-13] MEDS: Magnesium Oxide 400 MG TABLET PO SCH (13:57)
[2016-08-13] MEDS: Megestrol Acetate 400 MG/10 ML UDC PO SCH (13:57)
[2016-08-13] MEDS: Bisacodyl 10 MG RECTAL SUPPOSITORY RC SCH (13:57)
[2016-08-13] MEDS: Nystatin SUSP 5 ML UD.LIQ BC SCH ×4 (13:57→23:15)
[2016-08-13] MEDS: Ascorbic Acid 500 MG TABLET PO SCH (13:58)
[2016-08-13] MEDS: *HR* LORazepam 2 MG/ML VIAL IVP SCH ×4 (13:58→23:14)
[2016-08-13] MEDS: Cholecalciferol (D-3) 1,000 UNIT TABLET PO SCH (13:58)
[2016-08-13] MEDS: Multivit/Ca/Min/Fe/FA 1 TAB TABLET PO SCH (13:58)
[2016-08-13] MEDS: MethylPREDNISolone 40 MG/ML VIAL IVP SCH ×2 (13:58→18:45)
[2016-08-13] MEDS: D5% in Water 1,000 ML IVC SCH (13:59)
[2016-08-13] MEDS: Furosemide 40 MG/4 ML VIAL IVP SCH ×2 (13:59→18:45)
--- NOTE | 2016-08-13 14:04 | Event Note ---
Date of Encounter: 08/13/16 Time of Encounter: 13:00 Patient with severe agitation, pulling hair, screaming, shortly ago and was given Morphine. She is resting quietly now and daughter at bedside does not want her disturbed. Daughter stated that Geodon was not helpful last night. Appears that medications ordered by Palliative yesterday were d/c's and family refused the risperidal. Daughter stated physician discussed possible benzo withdrawal on top of RSV. Ativan has been restarted. Provided emotional support to daughter at bedside. Will follow.
[2016-08-13] MEDS: Melatonin 3 MG TABLET PO SCH (23:12)
[2016-08-13] MEDS: Clotrimazole Vag CRM 45 GM TUBE VG SCH (23:14)
[2016-08-14] MEDS: MethylPREDNISolone 40 MG/ML VIAL IVP SCH ×3 (01:00→21:43)
[2016-08-14] MEDS: *HR* LORazepam 2 MG/ML VIAL IVP SCH ×7 (01:00→21:41)
[2016-08-14] MEDS: *HR* LORazepam 2 MG/ML VIAL IVP PRN (03:21)
[2016-08-14] MEDS: Albuterol 2.5 MG/3 ML NEBULIZER IH SCH ×5 (03:56→20:53)
[2016-08-14 04:06] LABS: Hematocrit 25.2 % (35.3-44.9); Hemoglobin 7.7 g/dL (11.5-15.4); Mean Corpuscular HGB Conc 30.6 g/dL (31.6-35.5); Mean Corpuscular Volume 98.1 fL (83.0-100.0); Mean Platelet Volume 10.1 fL (9.4-12.4); Platelet Count 213 K/mcL (140-400); Red Blood Count 2.57 M/mcL (3.82-4.97); Red Cell Distribution Width 16.1 % (11.5-14.5)
[2016-08-14 04:18] LABS: Calcium 7.9 mg/dL (8.6-10.8); Potassium 3.6 mEq/L (3.5-4.5)
[2016-08-14] MEDS: *HR* Heparin 5,000 UNIT/ML VIAL SQ SCH ×2 (07:13→18:28)
[2016-08-14] MEDS: Budesonide/Formoterol 160/4.5 MDI IH SCH ×2 (08:07→20:53)
[2016-08-14] MEDS: *HR* Morphine 2 MG/ML SYRINGE IVP PRN ×2 (09:05→15:23)
[2016-08-14] MEDS: D5% in Water 1,000 ML IVC SCH (09:13)
[2016-08-14 10:07] LABS: Hematocrit 27.4 % (35.3-44.9); Hemoglobin 8.1 g/dL (11.5-15.4)
[2016-08-14 10:23] LABS: Bilirubin,Urine Negative (Negative); Blood,Urine Negative (Negative); Clarity,Urine Clear (Clear); Color,Urine Yellow (Yellow); Glucose,Urine (UA) Normal (Normal); Ketones,Urine Negative (Negative); Leukocyte Esterase,Urine Negative (Negative); Nitrite,Urine Negative (Negative); Protein,Urine Negative (Neg-Trace); Specific Gravity,Urine 1.017 (1.010-1.025); Urobilinogen,Urine Normal (Normal)
--- NOTE | 2016-08-14 12:52 | Internal Med Progress Note ---
Date of Encounter: 08/14/16 Time of Encounter: 12:50 - Assessment and plan (1) Acute and chronic respiratory failure with hypoxia Current Visit: No Status: Acute Assessment and plan: Acute metabolic encephalopathy due to acute on chronic hypoxic respiratory failure secondary to acute COPD exacerbation due to RSV/viral infection in combination with possible pulmonary vascular congestion in the setting of history of systolic CHF/possible exacerbation continue Lasix IV, strict I's and O's and daily weight decrease dose of Solu-Medrol to 40 mg BID, continue oxygen and nebulizers (2) Polymyalgia rheumatica Current Visit: No Status: Chronic Assessment and plan: Continue steroids (3) CHF (congestive heart failure) Current Visit: No Status: Chronic Qualifiers: Congestive heart failure type: combined Congestive heart failure chronicity : acute on chronic Qualified Code(s): I50.43 - Acute on chronic combined systolic (congestive) and diastolic (congestive) heart failure (4) COPD (chronic obstructive pulmonary disease) Current Visit: Yes Status: Chronic Qualifiers: COPD type: emphysema Emphysema type: panlobular Qualified Code(s): J43.1 - Panlobular emphysema (5) Elevated troponin level Current Visit: No Status: Resolved Assessment and plan: Likely secondary to demand ischemia (6) Anxiety Current Visit: Yes Status: Chronic Assessment and plan: Exacerbated by benzodiazepine withdrawal continue Ativan IV, hold if too sedated (7) Inferior pubic ramus fracture Current Visit: No Status: Acute Qualifiers: Encounter type: initial encounter Fracture type: closed Laterality: right Qualified Code(s): S32.591A - Other specified fracture of right pubis, initial encounter for closed fracture (8) Dementia Current Visit: No Status: Chronic Qualifiers: Dementia type: Alzheimer's disease Alzheimer's disease onset: late-onset Dementia behavioral disturbance: without behavioral disturbance Qualified Code (s): G30.1 - Alzheimer's disease with late onset; F02.80 - Dementia in other diseases classified elsewhere without behavioral disturbance (9) MGUS (monoclonal gammopathy of unknown significance) Current Visit: No Status: Chronic (10) DANIEL (acute kidney injury) Current Visit: Yes Status: Acute Assessment and plan: Improving, monitor creatinine (11) Hypernatremia Current Visit: Yes Status: Acute Assessment and plan: Unclear etiology Continue D5 at a lower rate of 50 mL/h with the use of Lasix Monitor sodium (12) Fungal dermatitis Current Visit: Yes Status: Acute Assessment and plan: possible acute fungal dermatitis in perineal area, vaginitis fluconazole 150 po one time start nystatin cream TID - Subjective Interval history: The patient is very somnolent after receiving ativan, was extremely anxious and short of breath earlier, unable to complete review of systems due to confusion - Constitutional Vitals: Temp Pulse Resp BP Pulse Ox 97.9 F 80 16 141/61 100 08/14/16 11:11 08/14/16 11:11 08/14/16 11:11 08/14/16 11:11 08/14/16 11:11 General appearance: Present: A&O X 1, answers questions appropriately - Head Head exam: Present: atraumatic, normocephalic - Eye Eye exam: Present: PERRL, conjuntiva pink, sclera anicteric Pupils: Present: PERRL - Neck Neck exam general surgery: Present: supple, trachea midline. Absent: lymphadenopathy - Respiratory Respiratory exam: Present: CTAB, rales (fine bibasilar crackles, mild wheezing) . Absent: accessory muscle use, rhonchi, wheezes - Cardiovascular Cardiovascular exam: Present: RRR, +S1, +S2. Absent: diastolic murmur, gallop, rubs, systolic murmur - GI/Abdominal GI/Abdominal exam: Present: normal bowel sounds, soft, no peritoneal signs. Absent: distended, tenderness - Extremities Exam Extremities exam: Present: warm, radial pulses palpable and symetrical. Absent : calf tenderness, cyanotic, pedal edema - Neurological Exam Neurological exam: Present: CN II-XII intact, no focal deficits. Absent: oriented X3, pronater drift, facial droop, speech deficit - Skin Skin exam: Present: dry. Absent: intact (sacral pressure lesion , right hip hematoma) Internal Medicine: Result - Labs CBC & Chem 7: 08/14/16 09:40 08/14/16 03:40 Labs: Short CBC 08/14/16 08/14/16 Range/Units 03:40 09:40 WBC 10.8 (4.3-11.1) K/mcL Hgb 7.7 L 8.1 L (11.5-15.4) g/dL Hct 25.2 L 27.4 L (35.3-44.9) % Plt Count 213 (140-400) K/mcL BMP 08/14/16 03:40 Sodium 149 H Potassium 3.6 Chloride 117 H Carbon Dioxide 24 BUN 45 H Creatinine 1.21 H Glucose 111 H Calcium 7.9 L Urine 08/14/16 Range/Units 09:55 Urine Color Yellow (Yellow) Urine Clarity Clear (Clear) Urine pH 6.0 (5.0-8.0) pH Units Ur Specific [place] 1.017 (1.010-1.025) Urine Protein Negative (Neg-Trace) mg/dL Urine Glucose (UA) Normal (Normal) mg/dL - ABG Interpretation ABG results: PT/INR, D-dimer PT 14.3 Seconds (9.4-12.1) H 08/12/16 01:32 - Impressions Impressions Chest X-Ray 08/14/16 09:12 IMPRESSION: Questionable developing density in the right lung apex. Follow-up to resolution is suggested. Hyperinflation of the lung morrison. D/ / 08/14/2016 09:49:55 Dyan Hamilton MD / danielle Interpreting Provider: Dyan Hamilton MD Consult Discharge Plan - Plan Referrals: NO,PCP [Non-Partnered Physician] -
[2016-08-14] MEDS ORDERED: Fluconazole 100 MG TABLET PO ONE (12:54)
[2016-08-14] MEDS: Furosemide 40 MG/4 ML VIAL IVP SCH ×2 (15:13→18:28)
[2016-08-14] MEDS: Aspirin Enteric Coated 81 MG Tablet PO SCH (15:26)
[2016-08-14] MEDS: BuPROPion SR (12 HR) 100 MG TABLET PO SCH ×2 (15:26→21:41)
[2016-08-14] MEDS: Ascorbic Acid 500 MG TABLET PO SCH (15:27)
[2016-08-14] MEDS: Isosorbide MONOnitrate (24 HR) 60 MG TAB.ER.24H PO SCH (15:27)
[2016-08-14] MEDS: Nystatin Cream 15 GM TUBE TP SCH (15:28)
[2016-08-14] MEDS: Cholecalciferol (D-3) 1,000 UNIT TABLET PO SCH (15:28)
[2016-08-14] MEDS: Bisacodyl 10 MG RECTAL SUPPOSITORY RC SCH (15:29)
[2016-08-14] MEDS: Nystatin SUSP 5 ML UD.LIQ BC SCH ×3 (15:30→21:43)
[2016-08-14] MEDS: Multivit/Ca/Min/Fe/FA 1 TAB TABLET PO SCH (15:35)
[2016-08-14] MEDS: Magnesium Oxide 400 MG TABLET PO SCH (15:35)
[2016-08-14] MEDS: Sennosides/Docusate Sodium TABLET PO SCH ×2 (15:35→21:43)
[2016-08-14] MEDS: hydrALAZINE 25 MG TABLET PO SCH ×2 (15:37)
[2016-08-14] MEDS: Megestrol Acetate 400 MG/10 ML UDC PO SCH (15:37)
[2016-08-14] MEDS: Metoprolol XL (24 HR) Succ 25 MG TAB.ER.24H PO SCH (15:37)
[2016-08-14] MEDS: Melatonin 3 MG TABLET PO SCH (21:41)
[2016-08-15] MEDS: Ipratropium/Albuterol Neb 3 ML IH PRN (00:16)
[2016-08-15] MEDS: Albuterol 2.5 MG/3 ML NEBULIZER IH SCH ×7 (00:24→23:55)
[2016-08-15] MEDS: *HR* LORazepam 2 MG/ML VIAL IVP SCH ×6 (00:39→23:26)
[2016-08-15] MEDS: Clotrimazole Vag CRM 45 GM TUBE VG SCH ×2 (01:08→20:15)
[2016-08-15] MEDS: Nystatin Cream 15 GM TUBE TP SCH ×4 (01:08→22:30)
[2016-08-15] MEDS: hydrALAZINE 25 MG TABLET PO SCH ×4 (01:08→20:11)
[2016-08-15 04:44] LABS: Hematocrit 23.5 % (35.3-44.9); Hemoglobin 7.1 g/dL (11.5-15.4); Mean Corpuscular HGB Conc 30.2 g/dL (31.6-35.5); Mean Corpuscular Hemoglobin 29.5 pg (28.0-33.3); Mean Corpuscular Volume 97.5 fL (83.0-100.0); Mean Platelet Volume 9.6 fL (9.4-12.4); Platelet Count 203 K/mcL (140-400); Red Blood Count 2.41 M/mcL (3.82-4.97); Red Cell Distribution Width 15.9 % (11.5-14.5)
[2016-08-15 04:59] LABS: Calcium 7.8 mg/dL (8.6-10.8); Potassium 3.8 mEq/L (3.5-4.5)
[2016-08-15] MEDS: *HR* Heparin 5,000 UNIT/ML VIAL SQ SCH ×2 (05:18→18:18)
--- NOTE | 2016-08-15 08:52 | Palliative Progress Note ---
Date of Encounter: 08/15/16 Time of Encounter: 07:40 - Assessment and plan (1) Anxiety Current Visit: Yes Status: Chronic Assessment and plan: Per the chart and confirmed by family patient seems to be doing fairly well with morphine and Ativan. The Ativan is scheduled with when necessary's. Her to the hospitalist team that there is a double order for the scheduled Ativan and they will check into that. (2) Goals of care, counseling/discussion Current Visit: Yes Status: Acute Assessment and plan: Status DNR [facility] DNI. Previous goals of care which were confirmed on Monday is for the patient returned to the [facility] and complete her rehabilitation and the potentially go home. Patient's mental status does seem to be very susceptible to any kind of medical insult. in This case the RSV. (3) DANIEL (acute kidney injury) Current Visit: Yes Status: Acute Assessment and plan: This is slowly resolving as his hypernatremia. (4) Acute metabolic encephalopathy Current Visit: Yes Status: Acute Assessment and plan: Multifactorial in nature, in all likelihood is secondary to the RSV but may also be worsened by the dehydration and acute renal failure and the per kilo in the up. At this time the acute kidney injury is getting better, the hypernatremia is within normal limits now and the patient is being supportively treated for the RSV. Also of note the patient is urinating well, and is now having bowel movements. (5) Delirium Current Visit: No Status: Acute Assessment and plan: Multifactorial in nature, in all likelihood is secondary to the RSV but may also be worsened by the dehydration and acute renal failure and the hypernatremia.. At this time the acute kidney injury is getting better, the hypernatremia is within normal limits now and the patient is being supportively treated for the RSV. Also of note the patient is urinating well, and is now having bowel movements. - Time Spent With Patient Total time spent is greater than 50% in coordination of care (as documented) at patient's floor/unit and/or counseling patient: - Subjective Interval history: Per daughter that is with her this morning patient did fairly well with morphine and digital Ativan with when necessary's. She is now stating that she is hungry per the family. - Constitutional Vitals: Abnormal lab results RBC 2.41 M/mcL (3.82-4.97) L 08/15/16 04:29 Hgb 7.1 g/dL (11.5-15.4) L 08/15/16 04:29 Hct 23.5 % (35.3-44.9) L 08/15/16 04:29 MCHC 30.2 g/dL (31.6-35.5) L 08/15/16 04:29 RDW 15.9 % (11.5-14.5) H 08/15/16 04:29 Neutrophils # 11.6 K/mcL (1.6-8.9) H 08/13/16 04:30 Lymphocytes # 0.5 K/mcL (0.6-4.6) L 08/13/16 04:30 PT 14.3 Seconds (9.4-12.1) H 08/12/16 01:32 Chloride 114 mEq/L (98-109) H 08/15/16 04:29 BUN 41 mg/dL (7-20) H 08/15/16 04:29 Creatinine 1.13 mg/dL (0.57-1.11) H 08/15/16 04:29 Est GFR ( Amer) 56 (> 60) L 08/15/16 04:29 Est GFR (Non-Af Amer) 46 (> 60) L 08/15/16 04:29 BUN/Creatinine Ratio 36 (6-26) H 08/15/16 04:29 Glucose 120 mg/dL (70-99) H 08/15/16 04:29 Calculated Osmolality 311 (280-300) H 08/15/16 04:29 Calcium 7.8 mg/dL (8.6-10.8) L 08/15/16 04:29 Troponin I 0.11 ng/mL (0-0.03) H* 08/13/16 04:30 Serum Total Protein 5.9 g/dL (6.0-8.3) L 08/12/16 01:32 Albumin 2.3 g/dL (3.5-5.0) L 08/12/16 01:32 Globulin 3.6 g/dL (2.4-3.5) H 08/12/16 01:32 Albumin/Globulin Ratio 0.6 (1.1-2.2) L 08/12/16 01:32 RSV (PCR) DETECTED (Not Detect) A 08/12/16 10:45 General appearance: Present: no acute distress - Head Head exam: Present: atraumatic, normal inspection - Eye Eye exam: Present: normal appearance - Respiratory Respiratory exam: Present: decreased breath sounds - Cardiovascular Cardiovascular exam: Present: RRR - GI/Abdominal GI/Abdominal exam: Present: normal bowel sounds, soft. Absent: tenderness - Extremities Exam Extremities exam: Absent: tenderness - Neurological Exam Neurological exam: Present: altered (Sleeping at this time but not oriented per family.) - Psychiatric Psychiatric exam: Absent: agitated, anxious (Not at this time but has been having episodes of this.) - Skin Skin exam: Present: dry, warm Palliative Quality Palliative Quality: Screen for Code Status: Yes, Screen for Goals of Care: Yes, Screen for Pain: Yes, If Pain Regimen Started, Initiate Bowel Regimen: NA, Screen for Nausea/Vomitting: Yes Code Status: 08/12/16 07:49 Resuscitation Status: Active [RES] Routine Comment: Resuscitation Status: [id number] - Labs CBC & Chem 7: 08/15/16 04:29 08/15/16 04:29 Labs: Laboratory Results - last 24 hr 08/14/16 08/14/16 08/15/16 09:40 09:55 04:29 WBC 9.6 RBC 2.41 L Hgb 8.1 L 7.1 L Hct 27.4 L 23.5 L MCV 97.5 MCH 29.5 MCHC 30.2 L RDW 15.9 H Plt Count 203 MPV 9.6 Sodium Potassium Chloride Carbon Dioxide BUN Creatinine Est GFR ( Amer) Est GFR (Non-Af Amer) BUN/Creatinine Ratio Glucose Calculated Osmolality Calcium Urine Color Yellow Urine Clarity Clear Urine pH 6.0 Ur Specific [place] 1.017 Urine Protein Negative Urine Glucose (UA) Normal Urine Ketones Negative Urine Blood Negative Urine Nitrite Negative Urine Bilirubin Negative Urine Urobilinogen Normal Ur Leukocyte Esterase Negative Ur Culture Indicated? NO 08/15/16 04:29 WBC RBC Hgb Hct MCV MCH MCHC RDW Plt Count MPV Sodium 145 Potassium 3.8 Chloride 114 H Carbon Dioxide 23 BUN 41 H Creatinine 1.13 H Est GFR ( Amer) 56 L Est GFR (Non-Af Amer) 46 L BUN/Creatinine Ratio 36 H Glucose 120 H Calculated Osmolality 311 H Calcium 7.8 L Urine Color Urine Clarity Urine pH Ur Specific [place] Urine Protein Urine Glucose (UA) Urine Ketones Urine Blood Urine Nitrite Urine Bilirubin Urine Urobilinogen Ur Leukocyte Esterase Ur Culture Indicated? - Impressions Impressions Chest X-Ray 08/14/16 09:12 IMPRESSION: Questionable developing density in the right lung apex. Follow-up to resolution is suggested. Hyperinflation of the lung morrison. D/ / 08/14/2016 09:49:55 Dyan Hamilton MD / bcarter Interpreting Provider: Dyan Hamilton MD - ABG Interpretation ABG results: PT/INR, D-dimer PT 14.3 Seconds (9.4-12.1) H 08/12/16 01:32 Consult Discharge Plan - Plan Referrals: Jeff Catsaneda MD [Primary Care Provider] -
[2016-08-15] MEDS: Budesonide/Formoterol 160/4.5 MDI IH SCH ×2 (09:18→21:00)
[2016-08-15] MEDS: Aspirin Enteric Coated 81 MG Tablet PO SCH (09:20)
[2016-08-15] MEDS: Isosorbide MONOnitrate (24 HR) 60 MG TAB.ER.24H PO SCH (09:20)
[2016-08-15] MEDS: Sennosides/Docusate Sodium TABLET PO SCH ×2 (09:20→20:12)
[2016-08-15] MEDS: BuPROPion SR (12 HR) 100 MG TABLET PO SCH ×2 (09:21→20:10)
[2016-08-15] MEDS: Magnesium Oxide 400 MG TABLET PO SCH (09:21)
[2016-08-15] MEDS: Metoprolol XL (24 HR) Succ 25 MG TAB.ER.24H PO SCH (09:21)
[2016-08-15] MEDS: Furosemide 40 MG/4 ML VIAL IVP SCH (09:24)
[2016-08-15] MEDS: MethylPREDNISolone 40 MG/ML VIAL IVP SCH (09:24)
[2016-08-15] MEDS: Megestrol Acetate 400 MG/10 ML UDC PO SCH (09:25)
[2016-08-15] MEDS: Nystatin SUSP 5 ML UD.LIQ BC SCH ×4 (09:25→20:11)
--- NOTE | 2016-08-15 11:16 | Internal Med Progress Note ---
Date of Encounter: 08/15/16 Time of Encounter: 11:13 - Assessment and plan (1) Acute and chronic respiratory failure with hypoxia Current Visit: No Status: Acute Assessment and plan: Acute metabolic encephalopathy due to acute on chronic hypoxic respiratory failure secondary to acute COPD exacerbation due to RSV/viral infection in combination with possible pulmonary vascular congestion in the setting of history of systolic CHF/possible exacerbation decrease Lasix IV down to 40 mg daily , strict I's and O's and daily weight discontinue Solu-Medrol, start prednisone in the morning, continue oxygen and nebulizers (2) Polymyalgia rheumatica Current Visit: No Status: Chronic Assessment and plan: Continue steroids (3) CHF (congestive heart failure) Current Visit: No Status: Chronic Qualifiers: Congestive heart failure type: combined Congestive heart failure chronicity : acute on chronic Qualified Code(s): I50.43 - Acute on chronic combined systolic (congestive) and diastolic (congestive) heart failure (4) COPD (chronic obstructive pulmonary disease) Current Visit: Yes Status: Chronic Qualifiers: COPD type: emphysema Emphysema type: panlobular Qualified Code(s): J43.1 - Panlobular emphysema (5) Elevated troponin level Current Visit: No Status: Resolved Assessment and plan: Likely secondary to demand ischemia (6) Anxiety Current Visit: Yes Status: Chronic Assessment and plan: Exacerbated by benzodiazepine withdrawal continue Ativan IV, hold if too sedated, taper down (7) Inferior pubic ramus fracture Current Visit: No Status: Acute Qualifiers: Encounter type: initial encounter Fracture type: closed Laterality: right Qualified Code(s): S32.591A - Other specified fracture of right pubis, initial encounter for closed fracture (8) Dementia Current Visit: No Status: Chronic Qualifiers: Dementia type: Alzheimer's disease Alzheimer's disease onset: late-onset Dementia behavioral disturbance: without behavioral disturbance Qualified Code (s): G30.1 - Alzheimer's disease with late onset; F02.80 - Dementia in other diseases classified elsewhere without behavioral disturbance (9) MGUS (monoclonal gammopathy of unknown significance) Current Visit: No Status: Chronic (10) DANIEL (acute kidney injury) Current Visit: Yes Status: Acute Assessment and plan: Improving, monitor creatinine discontinue IVF (11) Hypernatremia Current Visit: Yes Status: Acute Assessment and plan: Unclear etiology, resolved Discontinue D5 Monitor sodium (12) Fungal dermatitis Current Visit: Yes Status: Acute Assessment and plan: possible acute fungal dermatitis in perineal area, vaginitis fluconazole 150 po one time start nystatin cream TID (13) Anemia Current Visit: No Status: Chronic Assessment and plan: symptomatic anemia, anemia of chronic diases, no evidence of bleeding transfuse 1 unit of RBCs monitor cbc Qualifiers: Anemia type: other cause Other causes of anemia: other cause, not classified Qualified Code(s): D64.89 - Other specified anemias - Time Spent With Patient Greater than 35 minutes - Subjective Interval history: Very anxious, complaining of pain on her bottom. The patient is less somnolent after receiving ativan, is less short of breath , unable to complete review of systems due to confusion - Constitutional Vitals: Temp Pulse Resp BP Pulse Ox 97.5 F L 76 20 124/59 98 08/15/16 11:06 08/15/16 11:06 08/15/16 11:06 08/15/16 11:06 08/15/16 11:06 General appearance: Present: A&O X 1, answers questions appropriately - Head Head exam: Present: atraumatic, normocephalic - Eye Eye exam: Present: PERRL, conjuntiva pink, sclera anicteric Pupils: Present: PERRL - Neck Neck exam general surgery: Present: supple, trachea midline. Absent: lymphadenopathy - Respiratory Respiratory exam: Present: decreased breath sounds (fine bibasilar crackles improved, wheezing improved), CTAB. Absent: accessory muscle use, rales, rhonchi, wheezes - Cardiovascular Cardiovascular exam: Present: RRR, +S1, +S2. Absent: diastolic murmur, gallop, rubs, systolic murmur - GI/Abdominal GI/Abdominal exam: Present: normal bowel sounds, soft, no peritoneal signs. Absent: distended, tenderness - Extremities Exam Extremities exam: Present: warm, radial pulses palpable and symetrical. Absent : calf tenderness, cyanotic, pedal edema - Neurological Exam Neurological exam: Present: CN II-XII intact, no focal deficits. Absent: oriented X3, pronater drift, facial droop, speech deficit - Skin Skin exam: Present: dry, intact Internal Medicine: Result - Labs CBC & Chem 7: 08/15/16 04:29 08/15/16 04:29 Labs: Short CBC 08/15/16 Range/Units 04:29 WBC 9.6 (4.3-11.1) K/mcL Hgb 7.1 L (11.5-15.4) g/dL Hct 23.5 L (35.3-44.9) % Plt Count 203 (140-400) K/mcL BMP 08/15/16 04:29 Sodium 145 Potassium 3.8 Chloride 114 H Carbon Dioxide 23 BUN 41 H Creatinine 1.13 H Glucose 120 H Calcium 7.8 L - ABG Interpretation ABG results: PT/INR, D-dimer PT 14.3 Seconds (9.4-12.1) H 08/12/16 01:32 Consult Discharge Plan - Plan Referrals: Jeff Castaneda MD [Primary Care Provider] -
[2016-08-15] MEDS: *HR* Morphine 2 MG/ML SYRINGE IVP PRN ×2 (11:41→20:11)
[2016-08-15] MEDS: Multivit/Ca/Min/Fe/FA 1 TAB TABLET PO SCH (12:47)
[2016-08-15] MEDS: Bisacodyl 10 MG RECTAL SUPPOSITORY RC SCH (12:47)
[2016-08-15] MEDS: Cholecalciferol (D-3) 1,000 UNIT TABLET PO SCH (12:48)
[2016-08-15] MEDS: Ascorbic Acid 500 MG TABLET PO SCH (12:48)
[2016-08-15] MEDS ORDERED: 0.9 % Sodium Chloride 500 ML ONE (14:49)
[2016-08-15] MEDS: *HR* LORazepam 2 MG/ML VIAL IVP PRN ×2 (15:46→20:12)
[2016-08-15] MEDS: Melatonin 3 MG TABLET PO SCH (20:10)
[2016-08-16] MEDS: *HR* LORazepam 2 MG/ML VIAL IVP PRN ×2 (00:15→01:22)
[2016-08-16] MEDS: *HR* Morphine 2 MG/ML SYRINGE IVP PRN ×3 (00:15→12:10)
[2016-08-16] MEDS: Ipratropium/Albuterol Neb 3 ML IH PRN (01:40)
[2016-08-16] MEDS ORDERED: *HR* LORazepam 2 MG/ML VIAL IVP STA (02:38)
[2016-08-16] MEDS ORDERED: *HR* FentaNYL (PF) 100 MCG/2 ML VIAL IVP STA (02:43)
[2016-08-16] MEDS ORDERED: *HR* LORazepam 2 MG/ML VIAL IVP PRN (02:52)
[2016-08-16] MEDS ORDERED: *HR* LORazepam 2 MG/ML VIAL IVP SCH (04:00)
[2016-08-16] MEDS: Divalproex (12 HR) 250 MG TABLET PO SCH ×3 (04:47→23:30)
[2016-08-16] MEDS: Albuterol 2.5 MG/3 ML NEBULIZER IH SCH ×5 (04:53→19:54)
[2016-08-16 05:58] LABS: Hematocrit 27.1 % (35.3-44.9); Hemoglobin 8.3 g/dL (11.5-15.4); Mean Corpuscular HGB Conc 30.6 g/dL (31.6-35.5); Mean Corpuscular Hemoglobin 29.3 pg (28.0-33.3); Mean Corpuscular Volume 95.8 fL (83.0-100.0); Mean Platelet Volume 10.1 fL (9.4-12.4); Platelet Count 213 K/mcL (140-400); Red Blood Count 2.83 M/mcL (3.82-4.97); Red Cell Distribution Width 16.1 % (11.5-14.5)
[2016-08-16] MEDS: *HR* Heparin 5,000 UNIT/ML VIAL SQ SCH ×2 (06:12→18:55)
[2016-08-16] MEDS: *HR* LORazepam 2 MG/ML VIAL IVP SCH ×4 (06:13→22:57)
[2016-08-16 06:27] LABS: BUN/Creatinine Ratio 38 (6-26); Blood Urea Nitrogen 38 mg/dL (7-20); Calcium 7.9 mg/dL (8.6-10.8); Carbon Dioxide 24 mEq/L (19-29); Chloride 113 mEq/L (98-109); Glucose 71 mg/dL (70-99); Osmolality,Calculated 306 (280-300); Potassium 3.3 mEq/L (3.5-4.5); Sodium 144 mEq/L (136-145); eGFR For African Americans > 60 (> 60); eGFR For Non-African Americans 54 (> 60)
[2016-08-16] MEDS: Budesonide/Formoterol 160/4.5 MDI IH SCH ×3 (07:44→20:14)
--- NOTE | 2016-08-16 10:07 | Palliative Progress Note ---
Date of Encounter: 08/16/16 Time of Encounter: 09:35 - Assessment and plan (1) Anxiety Current Visit: Yes Status: Chronic Assessment and plan: Per the chart and confirmed by family patient seems to be doing fairly well with morphine and Ativan. The Ativan is scheduled with when necessary's. Her to the hospitalist team that there is a double order for the scheduled Ativan and they will check into that. Overall the family seems to wax and wane on the above. I would recommend only one person be making changes to her meds although I realize after-hours this becomes very difficult. For that Reason I will not make any changes today. (2) Goals of care, counseling/discussion Current Visit: Yes Status: Acute Assessment and plan: Status DNR CCA DNI. Previous goals of care which were confirmed on Monday is for the patient returned [facility] the [facility] and complete her rehabilitation and the potentially go home. Patient's mental status does seem to be very susceptible to any kind of medical insult. in This case the RSV. No changes today, (3) DANIEL (acute kidney injury) Current Visit: Yes Status: Acute Assessment and plan: This is slowly resolving as his hypernatremia. No changes today, (4) Acute metabolic encephalopathy Current Visit: Yes Status: Acute Assessment and plan: Multifactorial in nature, in all likelihood is secondary to the RSV but may also be worsened by the dehydration and acute renal failure and the per kilo in the up. At this time the acute kidney injury is getting better, the hypernatremia is within normal limits now and the patient is being supportively treated for the RSV. Also of note the patient is urinating well, and is now having bowel movements. (5) Delirium Current Visit: No Status: Acute Assessment and plan: Multifactorial in nature, in all likelihood is secondary to the RSV but may also be worsened by the dehydration and acute renal failure and the hypernatremia.. At this time the acute kidney injury is getting better, the hypernatremia is within normal limits now and the patient is being supportively treated for the RSV. Also of note the patient is urinating well, and is now having bowel movements. I still believe as the above. - Time Spent With Patient Total time spent is greater than 50% in coordination of care (as documented) at patient's floor/unit and/or counseling patient: - Subjective Interval history: Per daughter that is with her this morning patient did poorly last night. The patient seemed to respond to medication-driscoll seems to be kind of on again off again, however there is also review with difficulty with the family and they are Different Medications. She Is Resting Comfortably at This Time. - Constitutional Vitals: Abnormal lab results WBC 12.0 K/mcL (4.3-11.1) H 08/16/16 04:25 RBC 2.83 M/mcL (3.82-4.97) L 08/16/16 04:25 Hgb 8.3 g/dL (11.5-15.4) L 08/16/16 04:25 Hct 27.1 % (35.3-44.9) L 08/16/16 04:25 MCHC 30.6 g/dL (31.6-35.5) L 08/16/16 04:25 RDW 16.1 % (11.5-14.5) H 08/16/16 04:25 Neutrophils # 11.6 K/mcL (1.6-8.9) H 08/13/16 04:30 Lymphocytes # 0.5 K/mcL (0.6-4.6) L 08/13/16 04:30 PT 14.3 Seconds (9.4-12.1) H 08/12/16 01:32 Potassium 3.3 mEq/L (3.5-4.5) L 08/16/16 04:25 Chloride 113 mEq/L (98-109) H 08/16/16 04:25 BUN 38 mg/dL (7-20) H 08/16/16 04:25 Est GFR (Non-Af Amer) 54 (> 60) L 08/16/16 04:25 BUN/Creatinine Ratio 38 (6-26) H 08/16/16 04:25 Calculated Osmolality 306 (280-300) H 08/16/16 04:25 Calcium 7.9 mg/dL (8.6-10.8) L 08/16/16 04:25 Troponin I 0.11 ng/mL (0-0.03) H* 08/13/16 04:30 Serum Total Protein 5.9 g/dL (6.0-8.3) L 08/12/16 01:32 Albumin 2.3 g/dL (3.5-5.0) L 08/12/16 01:32 Globulin 3.6 g/dL (2.4-3.5) H 08/12/16 01:32 Albumin/Globulin Ratio 0.6 (1.1-2.2) L 08/12/16 01:32 RSV (PCR) DETECTED (Not Detect) A 08/12/16 10:45 General appearance: Present: no acute distress - Head Head exam: Present: atraumatic, normal inspection - Eye Eye exam: Present: normal appearance - ENT ENT exam: Present: mucous membranes moist - Respiratory Respiratory exam: Present: decreased breath sounds - Cardiovascular Cardiovascular exam: Present: RRR - GI/Abdominal GI/Abdominal exam: Present: normal bowel sounds, soft. Absent: tenderness - Extremities Exam Extremities exam: Present: normal inspection. Absent: pedal edema, tenderness - Neurological Exam Neurological exam: Present: altered - Psychiatric Psychiatric exam: Absent: agitated, anxious (But did have a great deal of difficulty with us during the night.) - Skin Skin exam: Present: dry, warm Palliative Quality Palliative Quality: Screen for Code Status: Yes, Screen for Goals of Care: Yes, Screen for Pain: Yes, If Pain Regimen Started, Initiate Bowel Regimen: NA, Screen for Nausea/Vomitting: Yes Code Status: 08/12/16 07:49 Resuscitation Status: Active [RES] Routine Comment: Resuscitation Status: [id number] - Labs CBC & Chem 7: 08/16/16 04:25 08/16/16 04:25 Labs: Laboratory Results - last 24 hr 08/15/16 08/16/16 08/16/16 12:10 04:25 04:25 WBC 12.0 H RBC 2.83 L Hgb 8.3 L Hct 27.1 L MCV 95.8 MCH 29.3 MCHC 30.6 L RDW 16.1 H Plt Count 213 MPV 10.1 Sodium 144 Potassium 3.3 L Chloride 113 H Carbon Dioxide 24 BUN 38 H Creatinine 0.99 Est GFR ( Amer) > 60 Est GFR (Non-Af Amer) 54 L BUN/Creatinine Ratio 38 H Glucose 71 Calculated Osmolality 306 H Calcium 7.9 L Blood Type A POSITIVE Antibody Screen NEGATIVE Crossmatch See Detail - ABG Interpretation ABG results: PT/INR, D-dimer PT 14.3 Seconds (9.4-12.1) H 08/12/16 01:32 Consult Discharge Plan - Plan Referrals: Jeff Castaneda MD [Primary Care Provider] -
[2016-08-16] MEDS: Magnesium Oxide 400 MG TABLET PO SCH (12:06)
[2016-08-16] MEDS: predniSONE 20 MG TABLET PO SCH (12:06)
[2016-08-16] MEDS: hydrALAZINE 25 MG TABLET PO SCH ×3 (12:06→23:30)
[2016-08-16] MEDS: BuPROPion SR (12 HR) 100 MG TABLET PO SCH (12:06)
[2016-08-16] MEDS: Isosorbide MONOnitrate (24 HR) 60 MG TAB.ER.24H PO SCH (12:07)
[2016-08-16] MEDS: Multivit/Ca/Min/Fe/FA 1 TAB TABLET PO SCH (12:07)
[2016-08-16] MEDS: Cholecalciferol (D-3) 1,000 UNIT TABLET PO SCH (12:07)
[2016-08-16] MEDS: Sennosides/Docusate Sodium TABLET PO SCH ×2 (12:07→23:30)
[2016-08-16] MEDS: Metoprolol XL (24 HR) Succ 25 MG TAB.ER.24H PO SCH (12:08)
[2016-08-16] MEDS: Ascorbic Acid 500 MG TABLET PO SCH (12:08)
[2016-08-16] MEDS: Aspirin Enteric Coated 81 MG Tablet PO SCH (12:08)
[2016-08-16] MEDS: Nystatin SUSP 5 ML UD.LIQ BC SCH ×4 (12:09→23:30)
[2016-08-16] MEDS: Megestrol Acetate 400 MG/10 ML UDC PO SCH (12:09)
[2016-08-16] MEDS: Furosemide 40 MG/4 ML VIAL IVP SCH (12:10)
[2016-08-16] MEDS: Nystatin Cream 15 GM TUBE TP SCH ×3 (13:03→23:30)
[2016-08-16] MEDS: Bisacodyl 10 MG RECTAL SUPPOSITORY RC SCH (13:05)
--- NOTE | 2016-08-16 18:57 | Internal Med Progress Note ---
Date of Encounter: 08/16/16 Time of Encounter: 16:00 - Assessment and plan (1) Respiratory syncytial virus bronchitis Current Visit: Yes Status: Acute Assessment and plan: Supportive care. Bronchodilators. Prednisone. Droplet precautions. Likely causing COPD exacerbation. Continue on oxygen supplementation by nasal cannula. Monitor continuous pulse oximetry. (2) Dementia Current Visit: No Status: Chronic Assessment and plan: Fall risk. Continue with Namenda. Titrate down her Ativan. Consider reintroducing risperidone. Qualifiers: Dementia type: Alzheimer's disease Alzheimer's disease onset: late-onset Dementia behavioral disturbance: without behavioral disturbance Qualified Code (s): G30.1 - Alzheimer's disease with late onset; F02.80 - Dementia in other diseases classified elsewhere without behavioral disturbance (3) Acute and chronic respiratory failure with hypoxia Current Visit: No Status: Acute Assessment and plan: Acute metabolic encephalopathy due to acute on chronic hypoxic respiratory failure secondary to acute COPD exacerbation due to RSV/viral infection in combination with possible pulmonary vascular congestion in the setting of history of systolic CHF/possible exacerbation Continue with Lasix IV down to 40 mg daily , strict I's and O's and daily weight Transition to prednisone 20 mg, continue oxygen and nebulizers (4) Acute metabolic encephalopathy Current Visit: Yes Status: Acute Assessment and plan: Full precautions. Avoid sedative medications. She is at high risk for morbidity mortality and complications due to severe and sudden change and mental status. - Subjective Interval history: Patient cannot provide any history due to advanced dementia. Per her daughters at the bedside and she has been more confused and agitated at her baseline. She complains of bladder discomfort secondary to French catheter. - Constitutional Vitals: Temp Pulse Resp BP Pulse Ox 97.6 F 70 16 116/52 96 08/16/16 11:19 08/16/16 15:38 08/16/16 15:38 08/16/16 11:19 08/16/16 17:00 General appearance: Present: A&O X 1 Exam: Agitated and fidgety. - Respiratory Respiratory exam: Present: CTAB. Absent: accessory muscle use, rales, rhonchi, wheezes - Cardiovascular Cardiovascular exam: Present: RRR, +S1, +S2. Absent: diastolic murmur, gallop, rubs, systolic murmur - GI/Abdominal GI/Abdominal exam: Present: normal bowel sounds, soft, no peritoneal signs. Absent: distended, tenderness Additional comments: Umbilical hernia. - Extremities Exam Extremities exam: Present: warm, radial pulses palpable and symetrical. Absent : calf tenderness, cyanotic, pedal edema - Skin Skin exam: Present: dry, intact Internal Medicine: Result - Labs CBC & Chem 7: 08/16/16 04:25 08/16/16 04:25 Labs: Short CBC 08/16/16 Range/Units 04:25 WBC 12.0 H (4.3-11.1) K/mcL Hgb 8.3 L (11.5-15.4) g/dL Hct 27.1 L (35.3-44.9) % Plt Count 213 (140-400) K/mcL BMP 08/16/16 04:25 Sodium 144 Potassium 3.3 L Chloride 113 H Carbon Dioxide 24 BUN 38 H Creatinine 0.99 Glucose 71 Calcium 7.9 L - ABG Interpretation ABG results: PT/INR, D-dimer PT 14.3 Seconds (9.4-12.1) H 08/12/16 01:32 - Impressions Impressions Chest X-Ray 08/14/16 09:12 IMPRESSION: Questionable developing density in the right lung apex. Follow-up to resolution is suggested. Hyperinflation of the lung morrison. D/ / 08/14/2016 09:49:55 Dyan Hamilton MD / [email or web address] Interpreting Provider: Dyan Hamilton MD Consult Discharge Plan - Plan Referrals: Jeff Castaneda MD [Primary Care Provider] -
[2016-08-16] MEDS: risperiDONE 1 MG TABLET PO SCH (23:30)
[2016-08-16] MEDS: Clotrimazole Vag CRM 45 GM TUBE VG SCH (23:30)
[2016-08-16] MEDS: Melatonin 3 MG TABLET PO SCH (23:30)
[2016-08-17] MEDS: Albuterol 2.5 MG/3 ML NEBULIZER IH SCH ×3 (00:15→08:37)
[2016-08-17] MEDS: *HR* Morphine 2 MG/ML SYRINGE IVP PRN ×2 (04:14→09:45)
[2016-08-17 04:38] LABS: Eosinophils % 0.4 %; Hematocrit 28.1 % (35.3-44.9); Hemoglobin 8.5 g/dL (11.5-15.4); Immature Granulocytes % 0.8 % (0-4); Lymphocytes # 0.4 K/mcL (0.6-4.6); Lymphocytes % 3.4 %; Mean Corpuscular HGB Conc 30.2 g/dL (31.6-35.5); Mean Corpuscular Hemoglobin 29.1 pg (28.0-33.3); Mean Corpuscular Volume 96.2 fL (83.0-100.0); Monocytes # 0.5 K/mcL (0.0-1.3); Monocytes % 4.7 %; Neutrophils # 9.4 K/mcL (1.6-8.9); Platelet Count 206 K/mcL (140-400); Red Blood Count 2.92 M/mcL (3.82-4.97); Red Cell Distribution Width 15.9 % (11.5-14.5); Segmented Neutrophils % 90.7 %
[2016-08-17 04:54] LABS: BUN/Creatinine Ratio 33 (6-26); Blood Urea Nitrogen 34 mg/dL (7-20); Calcium 8.6 mg/dL (8.6-10.8); Carbon Dioxide 26 mEq/L (19-29); Chloride 110 mEq/L (98-109); Glucose 79 mg/dL (70-99); Osmolality,Calculated 305 (280-300); Potassium 3.7 mEq/L (3.5-4.5); Sodium 144 mEq/L (136-145); eGFR For African Americans > 60 (> 60); eGFR For Non-African Americans 52 (> 60)
[2016-08-17] MEDS: *HR* LORazepam 2 MG/ML VIAL IVP SCH ×5 (06:09→23:33)
[2016-08-17] MEDS: *HR* Heparin 5,000 UNIT/ML VIAL SQ SCH ×2 (06:15→18:34)
[2016-08-17] MEDS ORDERED: Albuterol 2.5 MG/3 ML NEBULIZER IH PRN (08:37)
--- NOTE | 2016-08-17 09:42 | Palliative Progress Note ---
Date of Encounter: 08/17/16 Time of Encounter: 09:00 - Assessment and plan (1) Anxiety Current Visit: Yes Status: Chronic Assessment and plan: At any given moment in time, it appears that certain medications seem to work. The patient does seem to be typically susceptible to be hyped up by occasions it will typically sedate. It is very difficult to tell what is working and what is not especially when there are so many made changes taking place, a lot of which are done at the what appears to be the family's request Talking with the patient's daughter this morning he did not feel that the patient was having trouble with pain last night, and the morphine also did not seem to do much for her. He did note that her when necessary Ativan had been stopped. Discussed this with the hospitalist team, certainly agree that the environment that she is and is adding to the problems and she would probably do better either at the long-term or at home. However, will need to be a plan in place to deal with those problems if this is going to be the plan of action. (2) Goals of care, counseling/discussion Current Visit: Yes Status: Acute Assessment and plan: Status DNR CCA DNI. Previous goals of care which were confirmed on Monday is for the patient returned to the long-term and complete her rehabilitation and the potentially go home. Patient's mental status does seem to be very susceptible to any kind of medical insult. in This case the RSV. No changes today, Goals continued to be for the patient to return for rehabilitation and then to return home. (3) DANIEL (acute kidney injury) Current Visit: Yes Status: Acute Assessment and plan: This is slowly resolving as his hypernatremia. No changes today, Not completely back to full normal, but definitely headed in that direction. (4) Acute metabolic encephalopathy Current Visit: Yes Status: Acute Assessment and plan: Multifactorial in nature, in all likelihood is secondary to the RSV but may also be worsened by the dehydration and acute renal failure and the per kilo in the up. At this time the acute kidney injury is getting better, the hypernatremia is within normal limits now and the patient is being supportively treated for the RSV. Also of note the patient is urinating well, and is now having bowel movements. I suspect that there is a great deal of sundowning going on here, and the change in environment is probably adding to it. I have discussed this with the primary team. (5) Delirium Current Visit: No Status: Acute Assessment and plan: Multifactorial in nature, in all likelihood is secondary to the RSV but may also be worsened by the dehydration and acute renal failure and the hypernatremia.. At this time the acute kidney injury is getting better, the hypernatremia is within normal limits now and the patient is being supportively treated for the RSV. Also of note the patient is urinating well, and is now having bowel movements. I still believe as the above. - Time Spent With Patient Total time spent is greater than 50% in coordination of care (as documented) at patient's floor/unit and/or counseling patient: - Subjective Interval history: Per daughter that is with her this morning patient did poorly last night. this does seem to be primarily at night. Per daughter who was with her it does not seem to be due to pain and morphine did not appear to help - Constitutional Vitals: Abnormal lab results RBC 2.92 M/mcL (3.82-4.97) L 08/17/16 04:28 Hgb 8.5 g/dL (11.5-15.4) L 08/17/16 04:28 Hct 28.1 % (35.3-44.9) L 08/17/16 04:28 MCHC 30.2 g/dL (31.6-35.5) L 08/17/16 04:28 RDW 15.9 % (11.5-14.5) H 08/17/16 04:28 Neutrophils # 9.4 K/mcL (1.6-8.9) H 08/17/16 04:28 Lymphocytes # 0.4 K/mcL (0.6-4.6) L 08/17/16 04:28 PT 14.3 Seconds (9.4-12.1) H 08/12/16 01:32 Chloride 110 mEq/L (98-109) H 08/17/16 04:28 BUN 34 mg/dL (7-20) H 08/17/16 04:28 Est GFR (Non-Af Amer) 52 (> 60) L 08/17/16 04:28 BUN/Creatinine Ratio 33 (6-26) H 08/17/16 04:28 Calculated Osmolality 305 (280-300) H 08/17/16 04:28 Troponin I 0.11 ng/mL (0-0.03) H* 08/13/16 04:30 Serum Total Protein 5.9 g/dL (6.0-8.3) L 08/12/16 01:32 Albumin 2.3 g/dL (3.5-5.0) L 08/12/16 01:32 Globulin 3.6 g/dL (2.4-3.5) H 08/12/16 01:32 Albumin/Globulin Ratio 0.6 (1.1-2.2) L 08/12/16 01:32 RSV (PCR) DETECTED (Not Detect) A 08/12/16 10:45 General appearance: Present: no acute distress - Head Head exam: Present: atraumatic, normal inspection - Eye Eye exam: Present: normal appearance - Respiratory Respiratory exam: Present: decreased breath sounds - Cardiovascular Cardiovascular exam: Present: RRR - GI/Abdominal GI/Abdominal exam: Present: normal bowel sounds, soft. Absent: tenderness - Extremities Exam Extremities exam: Present: normal inspection. Absent: pedal edema, tenderness - Neurological Exam Neurological exam: Present: altered - Psychiatric Psychiatric exam: Absent: agitated, anxious (Suffered from both all night.) - Skin Skin exam: Present: dry, warm Palliative Quality Palliative Quality: Screen for Code Status: Yes, Screen for Goals of Care: Yes, Screen for Pain: Yes, If Pain Regimen Started, Initiate Bowel Regimen: NA, Screen for Nausea/Vomitting: Yes Code Status: 08/12/16 07:49 Resuscitation Status: Active [RES] Routine Comment: Resuscitation Status: [id number] - Labs CBC & Chem 7: 08/17/16 04:28 08/17/16 04:28 Labs: Laboratory Results - last 24 hr 08/17/16 08/17/16 04:28 04:28 WBC 10.3 RBC 2.92 L Hgb 8.5 L Hct 28.1 L MCV 96.2 MCH 29.1 MCHC 30.2 L RDW 15.9 H Plt Count 206 MPV 10.0 Immature Gran % 0.8 Seg Neutrophils % 90.7 Lymphocytes % 3.4 Monocytes % 4.7 Eosinophils % 0.4 Basophils % 0.0 Neutrophils # 9.4 H Lymphocytes # 0.4 L Monocytes # 0.5 Eosinophils # 0.0 Basophils # 0.0 Sodium 144 Potassium 3.7 Chloride 110 H Carbon Dioxide 26 BUN 34 H Creatinine 1.03 Est GFR ( Amer) > 60 Est GFR (Non-Af Amer) 52 L BUN/Creatinine Ratio 33 H Glucose 79 Calculated Osmolality 305 H Calcium 8.6 - Impressions Impressions Chest X-Ray 08/14/16 09:12 IMPRESSION: Questionable developing density in the right lung apex. Follow-up to resolution is suggested. Hyperinflation of the lung morrison. D/ / 08/14/2016 09:49:55 Dyan Hamilton MD / bcarter Interpreting Provider: Dyan Hamilton MD - ABG Interpretation ABG results: PT/INR, D-dimer PT 14.3 Seconds (9.4-12.1) H 08/12/16 01:32 Consult Discharge Plan - Plan Referrals: Jeff Castaneda MD [Primary Care Provider] -
[2016-08-17] MEDS: Furosemide 40 MG/4 ML VIAL IVP SCH (09:50)
[2016-08-17] MEDS: risperiDONE 1 MG TABLET PO SCH ×3 (09:57→21:44)
[2016-08-17] MEDS: hydrALAZINE 25 MG TABLET PO SCH ×4 (09:57→21:44)
[2016-08-17] MEDS: Isosorbide MONOnitrate (24 HR) 60 MG TAB.ER.24H PO SCH (09:58)
[2016-08-17] MEDS: Metoprolol XL (24 HR) Succ 25 MG TAB.ER.24H PO SCH (09:58)
[2016-08-17] MEDS: predniSONE 20 MG TABLET PO SCH (09:58)
[2016-08-17] MEDS: Magnesium Oxide 400 MG TABLET PO SCH (10:12)
[2016-08-17] MEDS: Divalproex (12 HR) 250 MG TABLET PO SCH (10:13)
[2016-08-17] MEDS: Sennosides/Docusate Sodium TABLET PO SCH ×3 (10:13→21:43)
[2016-08-17] MEDS: BuPROPion SR (12 HR) 100 MG TABLET PO SCH (10:13)
[2016-08-17] MEDS: Multivit/Ca/Min/Fe/FA 1 TAB TABLET PO SCH (10:14)
[2016-08-17] MEDS: Ascorbic Acid 500 MG TABLET PO SCH (10:14)
[2016-08-17] MEDS: Cholecalciferol (D-3) 1,000 UNIT TABLET PO SCH (10:14)
[2016-08-17] MEDS: Aspirin Enteric Coated 81 MG Tablet PO SCH (10:14)
[2016-08-17] MEDS: Megestrol Acetate 400 MG/10 ML UDC PO SCH (10:15)
[2016-08-17] MEDS: Nystatin SUSP 5 ML UD.LIQ BC SCH ×4 (10:15→21:19)
[2016-08-17] MEDS: Bisacodyl 10 MG RECTAL SUPPOSITORY RC SCH (10:15)
[2016-08-17] MEDS: Nystatin Cream 15 GM TUBE TP SCH ×3 (10:53→21:19)
[2016-08-17] MEDS ORDERED: Furosemide 20 MG TABLET PO PRN (15:33)
[2016-08-17] MEDS ORDERED: Ziprasidone injection 20 MG/ML VIAL IM PRN (15:37)
[2016-08-17] MEDS: Iron Sucrose Complex 200 MG in 0.9 % Sodium Chloride 100 ML IVPB SCH (18:36)
--- NOTE | 2016-08-17 20:31 | Internal Med Progress Note ---
Date of Encounter: 08/17/16 Time of Encounter: 15:00 - Assessment and plan (1) Respiratory syncytial virus bronchitis Current Visit: Yes Status: Acute Assessment and plan: Supportive care. Bronchodilators. Prednisone. Droplet precautions. Likely causing COPD exacerbation. Continue on oxygen supplementation by nasal cannula. Monitor continuous pulse oximetry. (2) Dementia Current Visit: No Status: Chronic Assessment and plan: Fall risk. Continue with Namenda. Titrate down her Ativan. I restarted risperidone. Qualifiers: Dementia type: Alzheimer's disease Alzheimer's disease onset: late-onset Dementia behavioral disturbance: without behavioral disturbance Qualified Code (s): G30.1 - Alzheimer's disease with late onset; F02.80 - Dementia in other diseases classified elsewhere without behavioral disturbance (3) Acute and chronic respiratory failure with hypoxia Current Visit: No Status: Acute Assessment and plan: Acute metabolic encephalopathy due to acute on chronic hypoxic respiratory failure secondary to acute COPD exacerbation due to RSV/viral infection in combination with possible pulmonary vascular congestion in the setting of history of systolic CHF/possible exacerbation Continue with Lasix IV down to 40 mg daily , strict I's and O's and daily weight Transition to prednisone 20 mg, continue oxygen and nebulizers (4) Acute metabolic encephalopathy Current Visit: Yes Status: Acute Assessment and plan: A significant component is secondary to polypharmacy. Therefore I will discontinue all unnecessary medication especially sedative medication, medication with potential untoward interactions. She is at high risk for morbidity mortality and complications due to severe and sudden change and mental status. - Subjective Interval history: 08/17/2016 Patient cannot provide any history due to advanced dementia. She is more agitated and more confused today than she was yesterday. 08/16: Per her daughters at the bedside and she has been more confused and agitated at her baseline. She complains of bladder discomfort secondary to French catheter. - Constitutional Vitals: Temp Pulse Resp BP Pulse Ox 96.7 F L 86 20 110/65 95 08/17/16 16:19 08/17/16 16:19 08/17/16 16:19 08/17/16 16:19 08/17/16 16:19 General appearance: Present: A&O X 0, A&O X 1 Exam: Nonverbal, mumbles, is agitated and swings her arms when I am getting close to examine her. - Neck Neck exam general surgery: Present: supple, trachea midline. Absent: lymphadenopathy - Respiratory Respiratory exam: Present: CTAB. Absent: accessory muscle use, rales, rhonchi, wheezes - Cardiovascular Cardiovascular exam: Present: RRR, +S1, +S2. Absent: diastolic murmur, gallop, rubs, systolic murmur - Skin Skin exam: Present: dry, intact Internal Medicine: Result - Labs CBC & Chem 7: 08/17/16 04:28 08/17/16 04:28 Labs: Short CBC 08/17/16 Range/Units 04:28 WBC 10.3 (4.3-11.1) K/mcL Hgb 8.5 L (11.5-15.4) g/dL Hct 28.1 L (35.3-44.9) % Plt Count 206 (140-400) K/mcL Neutrophils # 9.4 H (1.6-8.9) K/mcL BMP 08/17/16 04:28 Sodium 144 Potassium 3.7 Chloride 110 H Carbon Dioxide 26 BUN 34 H Creatinine 1.03 Glucose 79 Calcium 8.6 - ABG Interpretation ABG results: PT/INR, D-dimer PT 14.3 Seconds (9.4-12.1) H 08/12/16 01:32 Consult Discharge Plan - Plan Referrals: Jeff Castaneda MD [Primary Care Provider] -
[2016-08-17] MEDS: Melatonin 3 MG TABLET PO SCH ×2 (21:18→23:20)
[2016-08-17] MEDS: Clotrimazole Vag CRM 45 GM TUBE VG SCH ×2 (21:18→23:20)
[2016-08-18] MEDS: *HR* Heparin 5,000 UNIT/ML VIAL SQ SCH ×2 (05:44→18:39)
[2016-08-18] MEDS: *HR* LORazepam 2 MG/ML VIAL IVP SCH ×4 (05:44→23:48)
--- NOTE | 2016-08-18 09:24 | Palliative Progress Note ---
Date of Encounter: 08/18/16 Time of Encounter: 09:15 - Assessment and plan (1) Anxiety Current Visit: Yes Status: Chronic Assessment and plan: At any given moment in time, it appears that certain medications seem to work. The patient does seem to be typically susceptible to be hyped up by occasions it will typically sedate. It is very difficult to tell what is working and what is not especially when there are so many made changes taking place, a lot of which are done at the what appears to be the family's request family not present this morning, it may have rested slightly better last night but is very difficult to say. (2) Goals of care, counseling/discussion Current Visit: Yes Status: Acute Assessment and plan: Status DNR CCA DNI. Previous goals of care which were confirmed on Monday is for the patient returned to the custodial and complete her rehabilitation and the potentially go home. Patient's mental status does seem to be very susceptible to any kind of medical insult. in This case the RSV. No changes today, Goals continued to be for the patient to return for rehabilitation and then to return home. (3) DANIEL (acute kidney injury) Current Visit: Yes Status: Acute Assessment and plan: This is slowly resolving as his hypernatremia. No changes today, Not completely back to full normal, but definitely headed in that direction. No new labs back yet this morning. Plan per hospitalist team (4) Acute metabolic encephalopathy Current Visit: Yes Status: Acute Assessment and plan: Multifactorial in nature, in all likelihood is secondary to the RSV but may also be worsened by the dehydration and acute renal failure and the per kilo in the up. At this time the acute kidney injury is getting better, the hypernatremia is within normal limits now and the patient is being supportively treated for the RSV. Also of note the patient is urinating well, and is now having bowel movements. I suspect that there is a great deal of owning going on here, and the change in environment is probably adding to it. I have discussed this with the primary team. White count is normal, patient is afebrile, as are negative at this time RSV for RSV negative for flu all other indicators of been negative. Patient is breathing well, oxygenating well, she is having bowel movements and she is voiding regularly. S3s are normalizing the hypernatremia has normalized and the renal labs have been normalizing as well. As of right now no labs are back yet for today. Patient does not seem to be in pain as medication is made little difference to this. Dictation changes have been made little difference. The patient appears to be euvolemic. She is eating and her blood glucoses been normal. At this point in terms of her delirium I cannot help but believe that a large portion of this is environmental. Possibly exacerbated by polypharmacy. As was the same discussion I had with the hospitalist team yesterday. (5) Delirium Current Visit: No Status: Acute Assessment and plan: Multifactorial in nature, in all likelihood is secondary to the RSV but may also be worsened by the dehydration and acute renal failure and the hypernatremia.. At this time the acute kidney injury is getting better, the hypernatremia is within normal limits now and the patient is being supportively treated for the RSV. Also of note the patient is urinating well, and is now having bowel movements. I still believe as the above. White count is normal, patient is afebrile, as are negative at this time RSV for RSV negative for flu all other indicators of been negative. Patient is breathing well, oxygenating well, she is having bowel movements and she is voiding regularly. S3s are normalizing the hypernatremia has normalized and the renal labs have been normalizing as well. As of right now no labs are back yet for today. Patient does not seem to be in pain as medication is made little difference to this. Dictation changes have been made little difference. The patient appears to be euvolemic. She is eating and her blood glucoses been normal. At this point in terms of her delirium I cannot help but believe that a large portion of this is environmental. Possibly exacerbated by polypharmacy. As was the same discussion I had with the hospitalist team yesterday. - Time Spent With Patient Total time spent is greater than 50% in coordination of care (as documented) at patient's floor/unit and/or counseling patient: - Subjective Interval history: No family with her, sitter states that last night she may have gotten about 2 hours worth of sleep. But otherwise was agitated. This does represent perhaps a slight improvement. Family is not present. - Constitutional Vitals: Abnormal lab results RBC 2.92 M/mcL (3.82-4.97) L 08/17/16 04:28 Hgb 8.5 g/dL (11.5-15.4) L 08/17/16 04:28 Hct 28.1 % (35.3-44.9) L 08/17/16 04:28 MCHC 30.2 g/dL (31.6-35.5) L 08/17/16 04:28 RDW 15.9 % (11.5-14.5) H 08/17/16 04:28 Neutrophils # 9.4 K/mcL (1.6-8.9) H 08/17/16 04:28 Lymphocytes # 0.4 K/mcL (0.6-4.6) L 08/17/16 04:28 PT 14.3 Seconds (9.4-12.1) H 08/12/16 01:32 Chloride 110 mEq/L (98-109) H 08/17/16 04:28 BUN 34 mg/dL (7-20) H 08/17/16 04:28 Est GFR (Non-Af Amer) 52 (> 60) L 08/17/16 04:28 BUN/Creatinine Ratio 33 (6-26) H 08/17/16 04:28 Calculated Osmolality 305 (280-300) H 08/17/16 04:28 Troponin I 0.11 ng/mL (0-0.03) H* 08/13/16 04:30 Serum Total Protein 5.9 g/dL (6.0-8.3) L 08/12/16 01:32 Albumin 2.3 g/dL (3.5-5.0) L 08/12/16 01:32 Globulin 3.6 g/dL (2.4-3.5) H 08/12/16 01:32 Albumin/Globulin Ratio 0.6 (1.1-2.2) L 08/12/16 01:32 RSV (PCR) DETECTED (Not Detect) A 08/12/16 10:45 General appearance: Present: mild distress (Appears agitated) - Head Head exam: Present: atraumatic, normal inspection - Eye Eye exam: Present: normal appearance - Respiratory Respiratory exam: Present: decreased breath sounds - Cardiovascular Cardiovascular exam: Present: irregular rhythm - GI/Abdominal GI/Abdominal exam: Present: normal bowel sounds, soft. Absent: tenderness - Extremities Exam Extremities exam: Present: normal inspection. Absent: pedal edema, tenderness - Neurological Exam Neurological exam: Present: altered - Psychiatric Psychiatric exam: Present: agitated, anxious - Skin Skin exam: Present: dry, warm Palliative Quality Palliative Quality: Screen for Code Status: Yes, Screen for Goals of Care: Yes, Screen for Pain: Yes, If Pain Regimen Started, Initiate Bowel Regimen: NA, Screen for Nausea/Vomitting: Yes Code Status: 08/12/16 07:49 Resuscitation Status: Active [RES] Routine Comment: Resuscitation Status: [id number] - Labs CBC & Chem 7: 08/17/16 04:28 08/17/16 04:28 - ABG Interpretation ABG results: PT/INR, D-dimer PT 14.3 Seconds (9.4-12.1) H 08/12/16 01:32 Consult Discharge Plan - Plan Referrals: Jeff Castaneda MD [Primary Care Provider] -
[2016-08-18] MEDS: Sennosides/Docusate Sodium TABLET PO SCH ×2 (10:34→21:39)
[2016-08-18] MEDS: risperiDONE 1 MG TABLET PO SCH ×2 (10:34→21:35)
[2016-08-18] MEDS: Nystatin SUSP 5 ML UD.LIQ BC SCH ×4 (10:34→21:36)
[2016-08-18] MEDS: BuPROPion SR (12 HR) 100 MG TABLET PO SCH (10:34)
[2016-08-18] MEDS: Isosorbide MONOnitrate (24 HR) 60 MG TAB.ER.24H PO SCH (10:34)
[2016-08-18] MEDS: hydrALAZINE 25 MG TABLET PO SCH ×2 (10:34→18:39)
[2016-08-18] MEDS: Aspirin Enteric Coated 81 MG Tablet PO SCH (10:34)
[2016-08-18] MEDS: Metoprolol XL (24 HR) Succ 25 MG TAB.ER.24H PO SCH (10:34)
[2016-08-18] MEDS: *HR* HYDROcodone/Acet 7.5/325 mg TABLET PO PRN (10:34)
[2016-08-18] MEDS: Nystatin Cream 15 GM TUBE TP SCH ×3 (10:35→23:48)
[2016-08-18] MEDS: Bisacodyl 10 MG RECTAL SUPPOSITORY RC SCH (10:35)
[2016-08-18] MEDS: Iron Sucrose Complex 200 MG in 0.9 % Sodium Chloride 100 ML IVPB SCH (10:35)
--- NOTE | 2016-08-18 21:09 | Internal Med Progress Note ---
Date of Encounter: 08/18/16 Time of Encounter: 16:00 - Assessment and plan (1) Respiratory syncytial virus bronchitis Current Visit: Yes Status: Acute Assessment and plan: Supportive care. Bronchodilators. Prednisone. Droplet precautions. Likely causing COPD exacerbation. Continue on oxygen supplementation by nasal cannula. Monitor continuous pulse oximetry. (2) Dementia Current Visit: No Status: Chronic Assessment and plan: She does have features of Alzheimer's dementia with delirium. She has been hospitalized and treated with multiple sedative and neurotropic medication over the last 2 months. This has worsened her mental status. I believe that removing her from the hospital environment and returning her to her home environment would be beneficial. For now we will provide fall precautions. Fall risk. Continue with Namenda. Titrate down her Ativan. I restarted risperidone. Qualifiers: Dementia type: Alzheimer's disease Alzheimer's disease onset: late-onset Dementia behavioral disturbance: without behavioral disturbance Qualified Code (s): G30.1 - Alzheimer's disease with late onset; F02.80 - Dementia in other diseases classified elsewhere without behavioral disturbance (3) Acute and chronic respiratory failure with hypoxia Current Visit: No Status: Acute Assessment and plan: Acute metabolic encephalopathy due to acute on chronic hypoxic respiratory failure secondary to acute COPD exacerbation due to RSV/viral infection in combination with possible pulmonary vascular congestion in the setting of history of systolic CHF/possible exacerbation Continue with Lasix IV down to 40 mg daily , strict I's and O's and daily weight Transition to prednisone 20 mg, continue oxygen and nebulizers (4) Acute metabolic encephalopathy Current Visit: Yes Status: Acute Assessment and plan: A significant component is secondary to polypharmacy. Therefore I discontinued all unnecessary medication especially sedative medication, medication with potential untoward interactions. She is at high risk for morbidity mortality and complications due to severe and sudden change and mental status. I have discussed the Goals of care with the patient's daughters, I believe that caring for her in the home setting. Would be beneficial. She has a poor prognosis due to worsening delirium and dementia. - Subjective Interval history: Sunita G3 2017: Patient cannot provide any history due to profound altered mental status secondary to dementia and encephalopathy. She is obtunded, less agitated than yesterday, 08/17/2016 Patient cannot provide any history due to advanced dementia. She is more agitated and more confused today than she was yesterday. 08/16: Per her daughters at the bedside and she has been more confused and agitated at her baseline. She complains of bladder discomfort secondary to French catheter. - Constitutional Vitals: Temp Pulse Resp BP Pulse Ox 98.3 F 84 18 114/89 100 08/18/16 00:00 08/18/16 05:00 08/18/16 00:00 08/18/16 05:00 08/18/16 04:00 General appearance: Present: A&O X 0, A&O X 1 - Eye Eye exam: Present: PERRL, conjuntiva pink, sclera anicteric Pupils: Present: PERRL - Respiratory Respiratory exam: Present: CTAB. Absent: accessory muscle use, rales, rhonchi, wheezes - Cardiovascular Cardiovascular exam: Present: RRR, +S1, +S2. Absent: diastolic murmur, gallop, rubs, systolic murmur - GI/Abdominal GI/Abdominal exam: Present: normal bowel sounds, soft, no peritoneal signs. Absent: distended, tenderness - Extremities Exam Extremities exam: Present: warm, radial pulses palpable and symetrical. Absent : calf tenderness, cyanotic, pedal edema Internal Medicine: Result - Labs CBC & Chem 7: 08/17/16 04:28 08/17/16 04:28 - ABG Interpretation ABG results: PT/INR, D-dimer PT 14.3 Seconds (9.4-12.1) H 08/12/16 01:32 Consult Discharge Plan - Plan Referrals: Jeff Castaneda MD [Primary Care Provider] -
[2016-08-18] MEDS: Clotrimazole Vag CRM 45 GM TUBE VG SCH (21:40)
[2016-08-19] MEDS: *HR* LORazepam 2 MG/ML VIAL IVP SCH ×2 (05:42→12:57)
[2016-08-19] MEDS: *HR* Heparin 5,000 UNIT/ML VIAL SQ SCH (05:42)
[2016-08-19] MEDS: *HR* HYDROcodone/Acet 7.5/325 mg TABLET PO PRN ×2 (05:48→20:34)
--- NOTE | 2016-08-19 08:56 | Palliative Progress Note ---
Date of Encounter: 08/19/16 Time of Encounter: 08:58 - Assessment and plan (1) Anxiety Current Visit: Yes Status: Chronic Assessment and plan: At any given moment in time, it appears that certain medications seem to work. The patient does seem to be typically susceptible to be hyped up by occasions it will typically sedate. It is very difficult to tell what is working and what is not especially when there are so many made changes taking place, a lot of which are done at the what appears to be the family's request family not present this morning, it may have rested slightly better last night but is very difficult to say. no real changes did sleep some early this morning. It is unclear to me whether this is an improvement over yesterday or not. Possible discharged today per hospitalist team. (2) Goals of care, counseling/discussion Current Visit: Yes Status: Acute Assessment and plan: Status DNR [facility] DNI. Previous goals of care which were confirmed on Monday is for the patient returned to the [facility] and complete her rehabilitation and the potentially go home. Patient's mental status does seem to be very susceptible to any kind of medical insult. in This case the RSV. No changes today, Goals continued to be for the patient to return for rehabilitation and then to return home. Family now strongly favoring home health care with possible rehabilitation as part of that, and then incision for more rehabilitation if possible if the patient does not do better transition to hospice. Possible discharge today or tomorrow per hospitalist team. The patient has been refusing some medications, if she is doing this on a consistent basis I would believe that she is hospice eligible, however at this time the family wishes to retain capability of aggressive care. They have been briefed on how to transition to hospice should that become necessary. (3) DANIEL (acute kidney injury) Current Visit: Yes Status: Acute Assessment and plan: This is slowly resolving as his hypernatremia. No changes today, Not completely back to full normal, but definitely headed in that direction. No new labs back yet this morning. Plan per hospitalist team (4) Acute metabolic encephalopathy Current Visit: Yes Status: Acute Assessment and plan: Multifactorial in nature, in all likelihood is secondary to the RSV but may also be worsened by the dehydration and acute renal failure and the per kilo in the up. At this time the acute kidney injury is getting better, the hypernatremia is within normal limits now and the patient is being supportively treated for the RSV. Also of note the patient is urinating well, and is now having bowel movements. I suspect that there is a great deal of ing going on here, and the change in environment is probably adding to it. I have discussed this with the primary team. White count is normal, patient is afebrile, as are negative at this time RSV for RSV negative for flu all other indicators of been negative. Patient is breathing well, oxygenating well, she is having bowel movements and she is voiding regularly. S3s are normalizing the hypernatremia has normalized and the renal labs have been normalizing as well. As of right now no labs are back yet for today. Patient does not seem to be in pain as medication is made little difference to this. Dictation changes have been made little difference. The patient appears to be euvolemic. She is eating and her blood glucoses been normal. At this point in terms of her delirium I cannot help but believe that a large portion of this is environmental. Possibly exacerbated by polypharmacy. As was the same discussion I had with the hospitalist team yesterday. No new labs, nothing new to add to the above. Believe that this is at least in part environmental and may get better with transfer home. Current plan is to transfer home with home health care. The family made then did not transition to further rehabilitation if possible or to hospice if necessary. Patient refused medications at one point yesterday, if she were to continue to do this she would certainly be hospice eligible. (5) Delirium Current Visit: No Status: Acute Assessment and plan: Multifactorial in nature, in all likelihood is secondary to the RSV but may also be worsened by the dehydration and acute renal failure and the hypernatremia.. At this time the acute kidney injury is getting better, the hypernatremia is within normal limits now and the patient is being supportively treated for the RSV. Also of note the patient is urinating well, and is now having bowel movements. I still believe as the above. White count is normal, patient is afebrile, as are negative at this time RSV for RSV negative for flu all other indicators of been negative. Patient is breathing well, oxygenating well, she is having bowel movements and she is voiding regularly. S3s are normalizing the hypernatremia has normalized and the renal labs have been normalizing as well. As of right now no labs are back yet for today. Patient does not seem to be in pain as medication is made little difference to this. Dictation changes have been made little difference. The patient appears to be euvolemic. She is eating and her blood glucoses been normal. At this point in terms of her delirium I cannot help but believe that a large portion of this is environmental. Possibly exacerbated by polypharmacy. As was the same discussion I had with the hospitalist team yesterday. No new labs, nothing new to add to the above. Believe that this is at least in part environmental and may get better with transfer home. Current plan is to transfer home with home health care. The family made then did not transition to further rehabilitation if possible or to hospice if necessary. Patient refused medications at one point yesterday, if she were to continue to do this she would certainly be hospice eligible. - Time Spent With Patient Total time spent is greater than 50% in coordination of care (as documented) at patient's floor/unit and/or counseling patient: - Subjective Interval history: No family with her, sitter states that last night she got some sleep this morning.. But otherwise was agitated. This does represent perhaps a slight improvement. Family is not present. - Constitutional Vitals: Abnormal lab results RBC 2.92 M/mcL (3.82-4.97) L 08/17/16 04:28 Hgb 8.5 g/dL (11.5-15.4) L 08/17/16 04:28 Hct 28.1 % (35.3-44.9) L 08/17/16 04:28 MCHC 30.2 g/dL (31.6-35.5) L 08/17/16 04:28 RDW 15.9 % (11.5-14.5) H 08/17/16 04:28 Neutrophils # 9.4 K/mcL (1.6-8.9) H 08/17/16 04:28 Lymphocytes # 0.4 K/mcL (0.6-4.6) L 08/17/16 04:28 PT 14.3 Seconds (9.4-12.1) H 08/12/16 01:32 Chloride 110 mEq/L (98-109) H 08/17/16 04:28 BUN 34 mg/dL (7-20) H 08/17/16 04:28 Est GFR (Non-Af Amer) 52 (> 60) L 08/17/16 04:28 BUN/Creatinine Ratio 33 (6-26) H 08/17/16 04:28 Calculated Osmolality 305 (280-300) H 08/17/16 04:28 Troponin I 0.11 ng/mL (0-0.03) H* 08/13/16 04:30 Serum Total Protein 5.9 g/dL (6.0-8.3) L 08/12/16 01:32 Albumin 2.3 g/dL (3.5-5.0) L 08/12/16 01:32 Globulin 3.6 g/dL (2.4-3.5) H 08/12/16 01:32 Albumin/Globulin Ratio 0.6 (1.1-2.2) L 08/12/16 01:32 RSV (PCR) DETECTED (Not Detect) A 08/12/16 10:45 General appearance: Present: mild distress (Mildly agitated at this time) - Eye Eye exam: Present: normal appearance - Respiratory Respiratory exam: Present: decreased breath sounds - Cardiovascular Cardiovascular exam: Present: RRR - GI/Abdominal GI/Abdominal exam: Present: normal bowel sounds, soft. Absent: tenderness - Extremities Exam Extremities exam: Present: normal inspection. Absent: tenderness - Neurological Exam Neurological exam: Present: altered - Psychiatric Psychiatric exam: Present: agitated, anxious - Skin Skin exam: Present: dry, vesicles Palliative Quality Palliative Quality: Screen for Code Status: Yes, Screen for Goals of Care: Yes, Screen for Pain: Yes, If Pain Regimen Started, Initiate Bowel Regimen: NA, Screen for Nausea/Vomitting: Yes Code Status: 08/12/16 07:49 Resuscitation Status: Active [RES] Routine Comment: Resuscitation Status: [id number] - Labs CBC & Chem 7: 08/17/16 04:28 08/17/16 04:28 - ABG Interpretation ABG results: PT/INR, D-dimer PT 14.3 Seconds (9.4-12.1) H 08/12/16 01:32 Consult Discharge Plan - Plan Referrals: Jeff Castaneda MD [Primary Care Provider] -
[2016-08-19] MEDS: Isosorbide MONOnitrate (24 HR) 60 MG TAB.ER.24H PO SCH (09:50)
[2016-08-19] MEDS: risperiDONE 1 MG TABLET PO SCH (09:51)
[2016-08-19] MEDS: Sennosides/Docusate Sodium TABLET PO SCH (09:51)
[2016-08-19] MEDS: Nystatin Cream 15 GM TUBE TP SCH ×2 (09:51→20:00)
[2016-08-19] MEDS: Bisacodyl 10 MG RECTAL SUPPOSITORY RC SCH (09:51)
[2016-08-19] MEDS: Nystatin SUSP 5 ML UD.LIQ BC SCH ×3 (09:51→20:00)
[2016-08-19] MEDS: Aspirin Enteric Coated 81 MG Tablet PO SCH (09:51)
--- NOTE | 2016-08-19 10:48 | Discharge Summary ---
Date of Encounter: 08/19/16 Time of Encounter: 10:36 - Discharge Diagnosis (1) Respiratory syncytial virus bronchitis Priority: Secondary Status: Acute (2) Dementia Priority: Secondary Status: Chronic Qualifiers: Dementia type: Alzheimer's disease Alzheimer's disease onset: late-onset Dementia behavioral disturbance: without behavioral disturbance Qualified Code (s): G30.1 - Alzheimer's disease with late onset; F02.80 - Dementia in other diseases classified elsewhere without behavioral disturbance (3) Acute and chronic respiratory failure with hypoxia Priority: Primary Status: Acute (4) Acute metabolic encephalopathy Priority: Secondary Status: Acute - Discharge Medications Prescriptions: RisperiDONE [RisperDAL] 1 mg PO BID #60 tablet Sennosides/Docusate Sodium [Senna Plus] 2 each PO BID #30 tablet Home Medications: Budesonide/Formoterol 160/4.5 [Symbicort] 2 puff IH BID 02/20/15 [History] Clopidogrel [Plavix] 75 mg PO DAILY 02/20/15 [History] Tiotropium [Spiriva] 18 mcg IH DAILY 02/20/15 [History] Donepezil [Aricept] 10 mg PO HS 04/03/15 [History] Alendronate Sodium [Fosamax] 70 mg PO MO 07/09/15 [History] Ascorbate Calcium [Vitamin C] 500 mg PO DAILY 07/09/15 [History] Aspirin [Adult Low Dose Aspirin EC] 81 mg PO DAILY 07/09/15 [History] Calcium Carbonate/Vitamin D3 [Calcium 500-Vit D3 400 Tablet] 1 tab PO DAILY 04/13 [History] Isosorbide MONOnitrate (24 HR) [Imdur] 60 mg PO DAILY 07/09/15 [History] Losartan [Cozaar] 100 mg PO DAILY 07/09/15 [History] Metoprolol XL (24 HR) Succ [Toprol Xl] 25 mg PO DAILY 07/09/15 [History] Simvastatin [Zocor] 20 mg PO QPM 07/09/15 [History] Cholecalciferol (D-3) [Vitamin D] 1,000 unit PO DAILY 02/22/16 [History] Nitroglycerin [Nitrostat] 0.4 mg SL PRN PRN #30 tab.subl 02/26/16 [Rx] Albuterol Neb [Proventil Neb] 2.5 mg IH Q4HR 07/04/16 [History] LORazepam [Ativan] 1 mg PO HS #10 07/12/16 [Rx] Multivitamin [Multi-Day Vitamins] 1 tab PO DAILY 07/23/16 [History] HYDROcodone/Acet 7.5/325 mg [[place] 7.5-325 mg] 1 tab PO Q3H PRN #240 tablet 11/12 [Rx] Ipratropium/Albuterol Neb [Duoneb] 3 ml IH Q4HR PRN 08/12/16 [History] LORazepam [Lorazepam] 0.5 mg PO Q8HR PRN 08/12/16 [History] Melatonin 5 mg PO HS 08/12/16 [History] Nystatin [Nystatin Suspension] 5 ml PO QID 08/12/16 [History] Nystatin Cream [Mycostatin Cream] 1 appl TP TID tube 08/19/16 [Rx] RisperiDONE [RisperDAL] 1 mg PO BID #60 tablet 08/19/16 [Rx] Sennosides/Docusate Sodium [Senna Plus] 2 each PO BID #30 tablet 08/19/16 [Rx] Allergies/Adverse Reactions: Allergies citalopram [From Celexa] Allergy (Verified 07/22/16 23:44) Abdominal Pain haloperidol [From Haldol] Allergy (Verified 07/22/16 23:44) Hallucinating amlodipine [From Norvasc] Adverse Reaction (Verified 07/22/16 23:44) Nausea roflumilast [From Daliresp] Adverse Reaction (Verified 07/22/16 23:44) Difficulty Breathing Date of admission: 08/12/16 10:17 Primary care physician: Jeff Castaneda MD Consults: 08/12/16 14:19 Consult to [employer] [CONS] Routine Reason for SW Consult: Return to [facility] 08/12/16 15:05 Consult to Palliative Care [CONS] Routine Comment: Consulting Provider: Palliative Care Mobile 08/13/16 06:16 Consult to Speech Therapy [CONS] Routine Comment: Evaluate, develop and implement POC Reason for Consult: patient having difficulty swallowing crushed medication in applesauce, patient having difficulty drinking nectar thickened fluids, patient has crackles, nurse concerned that patient may aspirate Time Notified: 06:21 Call Completed: No 08/15/16 12:43 Consult to Physical Therapy [CONS] Routine Comment: Evaluate, develop and implement POC OT [Consult to Occupational Therapy] [CONS] Routine Comment: Evaluate, develop and implement POC - Patient Status Disposition: Home Health Service Condition: Fair Functional capacity at discharge: wheelchair bound Overall status at discharge: patient is not back to baseline - Discharge Instructions Instructions: Laxative, Stimulant (By mouth), Risperidone (By mouth), Chronic Obstructive Pulmonary Disease (DC), Anxiety (DC) Follow Up With: Jeff Castaneda MD [Primary Care Provider] - 08/24/16 2:15 pm - Diet and Activity Activity: as per physical therapy Diet: advance to your usual diet Hospital course: Hospital presentation: Ms. Khalil is a 81 year old female with a history of COPD, congestive heart failure, coronary artery disease, hyperlipidemia, hypertension, recent non-ST elevation OR, and recent pelvic fracture that is being treated nonoperatively presented to the ER with complaints of altered mental status. She resides at long term and has been doing well until 3 days back when she started to develop these symptoms. She was admitted here last month with similar complaints and at that time was diagnosed with urinary tract infection and delirium and then she also developed pneumonia and was treated for that with antibiotics. She had also been receiving multiple psychotropic medications and narcotic medications but seemed to be contributing to her symptoms and her medication regimen has been adjusted and she was discharged on Wellbutrin, Zoloft and she also takes Ativan on that she has been for a long time. She had apparently improved overall. Her symptoms began 3 days back. At baseline, the patient's daughter says that the patient is awake alert and oriented 3 and is able to function independently. Presently the patient is unable to provide much history and history has been obtained through review of ED records, previous hospital stay and from her daughter. Hospital course: Ms. Khalil was diagnosed with RSV infection causing acute on chronic hypoxic respiratory failure. She displayed features of delirium which was attributed to upper respiratory tract infection and polypharmacy in combination with baseline dementia. As part of the workup with CT of the head showed chronic age-related and vascular changes and no acute findings. Workup revealed acute kidney injury and hypernatremia. She received treatment with IV fluids and the kidney dysfunction and electrolyte abnormalities have resolved prior to discharge. She was treated with supportive care for RSV infection including bronchodilators and oxygen by nasal cannula. She had repeated episodes of agitation for which she was treated with sedative medication and antipsychotics. This worsened her delirium and caused reversal of sleep cycle and sundowning making her symptoms more difficult to control. Palliative care service was consulted. They recommended medication changes. They recommended environmental changes, in returning her to more familiar environment would likely improve her mental status. Polypharmacy was reduced by discontinuing medications that have high risk of neurological side effects. Her mental status slightly improved over the last 2 days of admission. Her baseline and remained fidgety, confused, mostly nonverbal however she was more calm and cooperative. Palliative care service had an extensive discussions about goals of care with the patient's daughter is an shared POA. They eventually decided to not take the patient back to the long term to take her home with home health and her condition does not improve to transition to home hospice. The patient was provided with a hospital bed which at the time of discharge had been scheduled to be delivered to the patient's home. She will be discharged with home health will plan to transition to hospice if her condition worsens. - Time Spent with Patient Total time spent providing and/or coordinating discharge services: Greater than 30 minutes (45 minutes) - Constitutional Vitals: Temp Pulse Resp BP Pulse Ox 98.3 F 98 20 167/67 92 L 08/19/16 08:12 08/19/16 08:12 08/19/16 08:12 08/19/16 08:12 08/19/16 08:12 General appearance: Present: A&O X 0, no acute distress - Respiratory Respiratory exam: Present: CTAB. Absent: accessory muscle use, rales, rhonchi, wheezes - Cardiovascular Cardiovascular exam: Present: RRR, +S1, +S2. Absent: diastolic murmur, gallop, rubs, systolic murmur - Extremities Exam Extremities exam: Present: warm, radial pulses palpable and symetrical. Absent : calf tenderness, cyanotic, pedal edema
--- NOTE | 2016-08-19 10:51 | Physician Discharge Referral ---
Home Health/Hosp Referral Info Transfer to: Home Health Provider in Charge Post Discharge: PCP - Diagnosis (1) Respiratory syncytial virus bronchitis Status: Acute (2) Dementia Status: Chronic (3) Acute and chronic respiratory failure with hypoxia Status: Acute (4) Acute metabolic encephalopathy Status: Acute - Respiratory Orders Oxygen / L per min Smoking Cessation: Smoking cessation has been advised. For more information, call the [place] Tobacco Quit Line at 9-398-YPPN-NOW. - Diet/Nutrition Diet/Nutrition Orders: Mechanical Soft, Cardiac (thick liquids) - Activity Activity Orders: Chair - Services Needed Following services are medically necessary services: Nursing, Home Health Aide, Physical Therapy - Transfer Medications Prescriptions: RisperiDONE [RisperDAL] 1 mg PO BID #60 tablet Sennosides/Docusate Sodium [Senna Plus] 2 each PO BID #30 tablet Home Medications: Budesonide/Formoterol 160/4.5 [Symbicort] 2 puff IH BID 02/20/15 [History] Clopidogrel [Plavix] 75 mg PO DAILY 02/20/15 [History] Tiotropium [Spiriva] 18 mcg IH DAILY 02/20/15 [History] Donepezil [Aricept] 10 mg PO HS 04/03/15 [History] Alendronate Sodium [Fosamax] 70 mg PO MO 07/09/15 [History] Ascorbate Calcium [Vitamin C] 500 mg PO DAILY 07/09/15 [History] Aspirin [Adult Low Dose Aspirin EC] 81 mg PO DAILY 07/09/15 [History] Calcium Carbonate/Vitamin D3 [Calcium 500-Vit D3 400 Tablet] 1 tab PO DAILY 04/13 [History] Isosorbide MONOnitrate (24 HR) [Imdur] 60 mg PO DAILY 07/09/15 [History] Losartan [Cozaar] 100 mg PO DAILY 07/09/15 [History] Metoprolol XL (24 HR) Succ [Toprol Xl] 25 mg PO DAILY 07/09/15 [History] Simvastatin [Zocor] 20 mg PO QPM 07/09/15 [History] Cholecalciferol (D-3) [Vitamin D] 1,000 unit PO DAILY 02/22/16 [History] Nitroglycerin [Nitrostat] 0.4 mg SL PRN PRN #30 tab.subl 02/26/16 [Rx] Albuterol Neb [Proventil Neb] 2.5 mg IH Q4HR 07/04/16 [History] LORazepam [Ativan] 1 mg PO HS #10 07/12/16 [Rx] Multivitamin [Multi-Day Vitamins] 1 tab PO DAILY 07/23/16 [History] HYDROcodone/Acet 7.5/325 mg [[place] 7.5-325 mg] 1 tab PO Q3H PRN #240 tablet 11/12 [Rx] Ipratropium/Albuterol Neb [Duoneb] 3 ml IH Q4HR PRN 08/12/16 [History] LORazepam [Lorazepam] 0.5 mg PO Q8HR PRN 08/12/16 [History] Melatonin 5 mg PO HS 08/12/16 [History] Nystatin [Nystatin Suspension] 5 ml PO QID 08/12/16 [History] Nystatin Cream [Mycostatin Cream] 1 appl TP TID tube 08/19/16 [Rx] RisperiDONE [RisperDAL] 1 mg PO BID #60 tablet 08/19/16 [Rx] Sennosides/Docusate Sodium [Senna Plus] 2 each PO BID #30 tablet 08/19/16 [Rx] Allergies/Adverse Reactions: Allergies citalopram [From Celexa] Allergy (Verified 07/22/16 23:44) Abdominal Pain haloperidol [From Haldol] Allergy (Verified 07/22/16 23:44) Hallucinating amlodipine [From Norvasc] Adverse Reaction (Verified 07/22/16 23:44) Nausea roflumilast [From Daliresp] Adverse Reaction (Verified 07/22/16 23:44) Difficulty Breathing Certification: Further, I certify that my clinical findings support that this patient is homebound (i.e. absences from home require considerable and taxing effort and are for medical reasons or mosque services or infrequently or short duration when for other reasons) because: Homebound Reason: Patient requires assistance of a person or device to safely leave home, Absences from home are contraindicated except to recieve medical care, Altered mental status requiring supervision when leaving home Attestation: My signature below is to certify that this patient is under my care and that I, or nurse practitioner, or a physician's employment legal assistant working with me, has a face-to -face encounter with this patient.
[2016-08-19] MEDS: Iron Sucrose Complex 200 MG in 0.9 % Sodium Chloride 100 ML IVPB SCH (12:56)
--- NOTE | 2016-08-19 14:42 | Internal Med Progress Note ---
Date of Encounter: 08/19/16 Time of Encounter: 14:38 - Assessment and plan (1) Respiratory syncytial virus bronchitis Current Visit: Yes Status: Acute Assessment and plan: Supportive care. Bronchodilators. Prednisone. Droplet precautions. Likely causing COPD exacerbation. Continue on oxygen supplementation by nasal cannula. Monitor continuous pulse oximetry. (2) Dementia Current Visit: No Status: Chronic Assessment and plan: She does have features of Alzheimer's dementia with delirium. She has been hospitalized and treated with multiple sedative and neurotropic medication over the last 2 months. This has worsened her mental status. I believe that removing her from the hospital environment and returning her to her home environment would be beneficial. For now we will provide fall precautions. Fall risk. Continue with Namenda. Titrate down her Ativan. I restarted risperidone. Qualifiers: Dementia type: Alzheimer's disease Alzheimer's disease onset: late-onset Dementia behavioral disturbance: without behavioral disturbance Qualified Code (s): G30.1 - Alzheimer's disease with late onset; F02.80 - Dementia in other diseases classified elsewhere without behavioral disturbance (3) Acute and chronic respiratory failure with hypoxia Current Visit: No Status: Acute Assessment and plan: Acute metabolic encephalopathy due to acute on chronic hypoxic respiratory failure secondary to acute COPD exacerbation due to RSV/viral infection in combination with possible pulmonary vascular congestion in the setting of history of systolic CHF/possible exacerbation She has CHF and needs hospital bed at home that can adjust to head of the bed to 30 degrees to alleviate SOB associated w/ CHF. She is high risk for aspiration due to delirium and needs head of bed at 30% to prevent aspiration. Continue with oral Lasix Transition to prednisone 20 mg, continue oxygen and nebulizers (4) Acute metabolic encephalopathy Current Visit: Yes Status: Acute Assessment and plan: MS slightly improved w/ decreasing polypharmacy. Will discharge home today. She has no longer inpatient needs and I anticipate she would do better in her home environment. A significant component is secondary to polypharmacy. Therefore I discontinued all unnecessary medication especially sedative medication, medication with potential untoward interactions. I have discussed the Goals of care with the patient's daughters, I believe that caring for her in the home setting. Would be beneficial. She has a poor prognosis due to worsening delirium and dementia. - Subjective Interval history: 08/19: pt doing better still confused, but more alert 08/18/2016: Patient cannot provide any history due to profound altered mental status secondary to dementia and encephalopathy. She is obtunded, less agitated than yesterday, 08/17/2016 Patient cannot provide any history due to advanced dementia. She is more agitated and more confused today than she was yesterday. 08/16: Per her daughters at the bedside and she has been more confused and agitated at her baseline. She complains of bladder discomfort secondary to French catheter. - Constitutional Vitals: Temp Pulse Resp BP Pulse Ox 97.2 F L 98 20 116/61 97 08/19/16 10:57 08/19/16 08:12 08/19/16 10:57 08/19/16 10:57 08/19/16 11:00 General appearance: Present: A&O X 0, no acute distress - Respiratory Respiratory exam: Present: CTAB. Absent: accessory muscle use, rales, rhonchi, wheezes - Cardiovascular Cardiovascular exam: Present: RRR, +S1, +S2. Absent: diastolic murmur, gallop, rubs, systolic murmur - GI/Abdominal GI/Abdominal exam: Present: normal bowel sounds, soft, no peritoneal signs. Absent: distended, tenderness Internal Medicine: Result - Labs CBC & Chem 7: 08/17/16 04:28 08/17/16 04:28 - ABG Interpretation ABG results: PT/INR, D-dimer PT 14.3 Seconds (9.4-12.1) H 08/12/16 01:32 Consult Discharge Plan - Plan Referrals: Jeff Castaneda MD [Primary Care Provider] - 08/24/16 2:15 pm Prescriptions: RisperiDONE [RisperDAL] 1 mg PO BID #60 tablet Sennosides/Docusate Sodium [Senna Plus] 2 each PO BID #30 tablet
[2016-08-19 21:32] VITALS: BP 117/62
== END 2016-08-19 21:31 | disposition home health service (06) | DRG 190 ==
LOC: EMEROO 00:21 → 2NENU 00:21 → SUATTDRO 03:56 → 2NENU 04:30 → SUATTDRO 10:17
PROVIDERS: ADMIT Pediatrics; ATTEND Internal Medicine

== ENCOUNTER 2016-10-20 14:48 | Inpatient (IN) ==
--- NOTE | 2016-10-20 15:19 | Emergency Department Note ---
Disposition Clinical Impression: CHF (congestive heart failure), Anemia Disposition: Admitted As Inpatient General Adult HPI - General Chief complaint: ED Shortness of Breath/Dyspnea Stated complaint: Low Hemoglobin Time Seen by Provider: 10/20/16 15:07 Source: patient, family Limitations: no limitations Nursing Notes Reviewed: Yes Vital Signs Reviewed: Yes - History of Present Illness Pain Scale: 6 - Related Data Home Medications Medication Instructions Recorded Confirmed Budesonide/Formoterol 160/4.5 2 puff IH BID 02/20/15 10/20/16 [Symbicort] Clopidogrel [Plavix] 75 mg PO DAILY 02/20/15 10/20/16 Tiotropium [Spiriva] 18 mcg IH DAILY 02/20/15 10/20/16 Donepezil [Aricept] 10 mg PO HS 04/03/15 10/20/16 Alendronate Sodium [Fosamax] 70 mg PO MO 07/09/15 10/20/16 Ascorbate Calcium [Vitamin C] 500 mg PO DAILY 07/09/15 10/20/16 Aspirin [Adult Low Dose Aspirin EC] 81 mg PO DAILY 07/09/15 10/20/16 Calcium Carbonate/Vitamin D3 1 tab PO DAILY 07/09/15 10/20/16 [Calcium 500-Vit D3 400 Tablet] Isosorbide MONOnitrate (24 HR) 60 mg PO DAILY 07/09/15 10/20/16 [Imdur] Losartan [Cozaar] 100 mg PO DAILY 07/09/15 10/20/16 Metoprolol XL (24 HR) Succ [Toprol 25 mg PO DAILY 07/09/15 10/20/16 Xl] Simvastatin [Zocor] 40 mg PO HS 07/09/15 10/20/16 Albuterol Neb [Proventil Neb] 2.5 mg IH TID 07/04/16 10/20/16 LORazepam [Lorazepam] 0.5 mg PO Q6H PRN 08/12/16 10/20/16 Melatonin 10 mg PO HS 08/12/16 10/20/16 Albuterol Sulfate [Proair Hfa] 2 puff IH Q4H PRN 10/20/16 10/20/16 Ferrous Sulfate 325 mg PO DAILY 10/20/16 10/20/16 Furosemide [Lasix] 40 mg PO DAILY 10/20/16 10/20/16 Hydralazine HCl 50 mg PO TID 10/20/16 10/20/16 Nitroglycerin [Nitrostat] 0.4 mg SL Q5M PRN 10/20/16 10/20/16 Oxygen 3 l NS CONT 10/20/16 10/20/16 Potassium Chloride [K-Tab ER] 20 meq PO DAILY 10/20/16 10/20/16 Sertraline [Zoloft] 100 mg PO DAILY 10/20/16 10/20/16 buPROPion HCl [Bupropion HCl Sr] 200 mg PO BID 10/20/16 10/20/16 Previous Rx's Medication Instructions Recorded LORazepam [Ativan] 1 mg PO HS #10 07/12/16 HYDROcodone/Acet 7.5/325 mg [[place] 1 tab PO Q3H PRN #240 tablet 08/01/16 7.5-325 mg] Allergies Allergy/AdvReac Type Severity Reaction Status Date / Time citalopram [From Celexa] Allergy Abdominal Verified 10/20/16 15:01 Pain haloperidol [From Haldol] Allergy Hallucinati Verified 10/20/16 15:01 ng amlodipine [From Norvasc] AdvReac Nausea Verified 10/20/16 15:01 risperidone AdvReac See Verified 10/20/16 15:02 Comments roflumilast [From Daliresp] AdvReac Difficulty Verified 10/20/16 15:01 Breathing Past Medical History - Past Medical History Medical history: Reports: arthritis, CHF, COPD, coronary artery disease, dementia, GERD, hyperlipidemia, hypertension, myocardial infarction, osteoporosis, peripheral artery disease, renal disease, other Surgical history: Reports: cholecystectomy, hysterectomy, BHARATHI/BSO, other Psychiatric history: Reports: anxiety, depression - Social History Smoking Status: Former smoker Smokeless Tobacco Status: No Alcohol use: Reports: none Drug use: Reports: none Physical Exam - General Limitations: no limitations General appearance: alert Course Vital Signs Temperature 98 F 10/20/16 14:56 Pulse Rate 78 10/20/16 14:56 Respiratory Rate 21 10/20/16 14:56 Blood Pressure 131/54 10/20/16 14:56 O2 Sat by Pulse Oximetry 89 10/20/16 14:56 Temperature 98.7 F 10/20/16 18:05 Pulse Rate 68 05/25/17 18:05 Respiratory Rate 18 10/20/16 18:05 Blood Pressure 123/71 10/20/16 18:05 O2 Sat by Pulse Oximetry 97 10/20/16 18:05 Oxygen Delivery Oxygen Delivery Nasal Cannula Medical Decision Making - MDM Narrative Medical decision making narrative: I examined this patient and my medical decision-making was reviewed with the CARE TAKER/PA/Advanced Practice Nurse/Resident Physician. I agree with the documented findings, disposition and treatment plan as described except to the extent set forth below. Patient arrives today with daughter and is seen by Dr. Benjamin and myself, I agree with her evaluation and management plan, supervise care the patient's stay. Patient has a history of anemia daughter states it requires transfusion about 4 times year but uncertain etiology. She follows with hematology here at the hospital. Patient states her last transfusion was couple months ago. Just bruising on her hands. She has had some swelling in her left lower extremity. She states that her physician was ordering a Doppler study that leg as an outpatient. So going get that today. Her hemoglobin today was 6.1 done as an outpatient would a type and screen on her and lab work since she did have chemistries were done and then consider admission with her with blood transfusion. Daughter also notes the patient does have dementia does well during the day and has lost owning at night. Chest X-Ray 10/20/16 15:11 IMPRESSION: 1. Cardiomegaly with vascular congestion and small right pleural effusion. D/ / Cm Sun MD / Cm Sun MD Interpreting Provider: Cm Sun MD 1650 hrs.: Patient's blood tubes clotted so they had to redraw those. Waiting on those to come back and waiting on her DVT study to be done. She is in agreement. 1745 hrs.: Vascular read her ultrasound of her leg is negative for DVT. Remaining ahead and start her blood transfusion then bring her into the hospital. Family is in agreement with plan. Impression symptomatic anemia uncertain etiology left lower extremity swelling uncertain etiology no DVT on initial ultrasound. - Lab Data Result diagrams: 10/20/16 16:37 Lab Results 10/20/16 10/20/16 10/20/16 Range/Units 15:45 15:49 15:57 PT 12.1 (9.4-12.1) Seconds INR 1.1 Sodium (136-145) mEq/L Potassium (3.5-4.5) mEq/L Chloride (98-109) mEq/L Carbon Dioxide (19-29) mEq/L BUN (7-20) mg/dL Creatinine (0.57-1.11) mg/dL Est GFR ( Amer) (> 60) Est GFR (Non-Af Amer) (> 60) BUN/Creatinine Ratio (6-26) Glucose (70-99) mg/dL Calculated Osmolality (280-300) Calcium (8.6-10.8) mg/dL Magnesium (1.6-2.6) mg/dL Total Bilirubin (0.2-1.2) mg/dL AST (5-34) Units/L ALT (0-55) Units/L Alkaline Phosphatase (38-126) Units/L B-Natriuretic Peptide 820 H (0-100) pg/mL Serum Total Protein (6.0-8.3) g/dL Albumin (3.5-5.0) g/dL Globulin (2.4-3.5) g/dL Albumin/Globulin Ratio (1.1-2.2) Specimen Rejected Blood Type A POSITIVE Antibody Screen NEGATIVE Crossmatch See Detail 10/20/16 10/20/16 10/20/16 Range/Units 16:29 16:37 16:39 PT (9.4-12.1) Seconds INR Sodium 143 (136-145) mEq/L Potassium 4.1 (3.5-4.5) mEq/L Chloride 110 H (98-109) mEq/L Carbon Dioxide 26 (19-29) mEq/L BUN 25 H (7-20) mg/dL Creatinine 0.93 (0.57-1.11) mg/dL Est GFR ( Amer) > 60 (> 60) Est GFR (Non-Af Amer) 58 L (> 60) BUN/Creatinine Ratio 27 H (6-26) Glucose 105 H (70-99) mg/dL Calculated Osmolality 301 H (280-300) Calcium 8.6 (8.6-10.8) mg/dL Magnesium 2.2 (1.6-2.6) mg/dL Total Bilirubin 0.4 (0.2-1.2) mg/dL AST 17 (5-34) Units/L ALT 8 (0-55) Units/L Alkaline Phosphatase 71 (38-126) Units/L B-Natriuretic Peptide (0-100) pg/mL Serum Total Protein 5.9 L (6.0-8.3) g/dL Albumin 2.9 L (3.5-5.0) g/dL Globulin 3.0 (2.4-3.5) g/dL Albumin/Globulin Ratio 1.0 L (1.1-2.2) Specimen Rejected Hemolyzed Blood Type Antibody Screen Crossmatch
--- NOTE | 2016-10-20 15:47 | Emergency Department Note ---
Disposition Clinical Impression: CHF (congestive heart failure) Qualifiers: Congestive heart failure type: unspecified congestive heart failure type Congestive heart failure chronicity: acute on chronic Qualified Code(s): I50.9 - Heart failure, unspecified Anemia Qualifiers: Vitamin B12 deficiency anemia type: unspecified B12 deficiency Disposition: Admitted As Inpatient Time of Disposition: 18:47 General Adult HPI - General Chief complaint: ED Shortness of Breath/Dyspnea Stated complaint: Low Hemoglobin Time Seen by Provider: 10/20/16 15:07 Source: patient, family Limitations: no limitations Nursing Notes Reviewed: Yes Vital Signs Reviewed: Yes - History of Present Illness HPI Narrative: Patient sent from 's office for low hemoglobin. She reports increasing shortness of breath. Denies any chest pain. Also reports bilateral lower extremity swelling. She states that the swelling is worse on the left side than the right. Has had an increase in her hydralazine recently to help alleviate this however her left leg is still swollen. Pain Scale: 6 - Related Data Home Medications Medication Instructions Recorded Confirmed Budesonide/Formoterol 160/4.5 2 puff IH BID 02/20/15 08/12/16 [Symbicort] Clopidogrel [Plavix] 75 mg PO DAILY 02/20/15 08/12/16 Tiotropium [Spiriva] 18 mcg IH DAILY 02/20/15 08/12/16 Donepezil [Aricept] 10 mg PO HS 04/03/15 08/12/16 Alendronate Sodium [Fosamax] 70 mg PO MO 07/09/15 08/12/16 Ascorbate Calcium [Vitamin C] 500 mg PO DAILY 07/09/15 08/12/16 Aspirin [Adult Low Dose Aspirin EC] 81 mg PO DAILY 07/09/15 08/12/16 Calcium Carbonate/Vitamin D3 1 tab PO DAILY 07/09/15 08/12/16 [Calcium 500-Vit D3 400 Tablet] Isosorbide MONOnitrate (24 HR) 60 mg PO DAILY 07/09/15 08/12/16 [Imdur] Losartan [Cozaar] 100 mg PO DAILY 07/09/15 08/12/16 Metoprolol XL (24 HR) Succ [Toprol 25 mg PO DAILY 07/09/15 08/12/16 Xl] Simvastatin [Zocor] 20 mg PO QPM 07/09/15 08/12/16 Albuterol Neb [Proventil Neb] 2.5 mg IH Q4HR 07/04/16 08/12/16 LORazepam [Lorazepam] 0.5 mg PO Q8HR PRN 08/12/16 08/12/16 Melatonin 5 mg PO HS 08/12/16 08/12/16 Albuterol Sulfate [Proair Hfa] 2 puff IH Q4H PRN 10/20/16 10/20/16 Ferrous Sulfate 325 mg PO DAILY 10/20/16 10/20/16 Furosemide [Lasix] 40 mg PO DAILY 10/20/16 10/20/16 Hydralazine HCl 50 mg PO TID 10/20/16 10/20/16 Nitroglycerin [Nitrostat] 0.4 mg SL Q5M PRN 10/20/16 10/20/16 Oxygen 3 l NS CONT 10/20/16 10/20/16 Potassium Chloride [K-Tab ER] 20 meq PO DAILY 10/20/16 10/20/16 Sertraline [Zoloft] 100 mg PO DAILY 10/20/16 10/20/16 buPROPion HCl [Bupropion HCl Sr] 200 mg PO BID 10/20/16 10/20/16 Previous Rx's Medication Instructions Recorded LORazepam [Ativan] 1 mg PO HS #10 07/12/16 HYDROcodone/Acet 7.5/325 mg [[place] 1 tab PO Q3H PRN #240 tablet 08/01/16 7.5-325 mg] Allergies Allergy/AdvReac Type Severity Reaction Status Date / Time citalopram [From Celexa] Allergy Abdominal Verified 10/20/16 15:01 Pain haloperidol [From Haldol] Allergy Hallucinati Verified 10/20/16 15:01 ng amlodipine [From Norvasc] AdvReac Nausea Verified 10/20/16 15:01 risperidone AdvReac See Verified 10/20/16 15:02 Comments roflumilast [From Daliresp] AdvReac Difficulty Verified 10/20/16 15:01 Breathing All systems ED: reviewed and negative except as stated. Constitutional: Denies: fever, chills ENT ED: Denies: congestion Cardiovascular: Reports: dyspnea on exertion. Denies: chest pain, palpitations , syncope Respiratory: Reports: dyspnea. Denies: cough, wheezes Gastrointestinal: Denies: abdominal pain, nausea, vomiting, diarrhea Genitourinary: Denies: urgency, dysuria, frequency, hematuria, dyspareunia Musculoskeletal: Denies: back pain, neck pain Integumentary: Denies: rash, abrasion Neurological: Denies: headache Past Medical History - Past Medical History Medical history: Reports: arthritis, CHF, COPD, coronary artery disease, dementia, GERD, hyperlipidemia, hypertension, myocardial infarction, osteoporosis, peripheral artery disease, renal disease, other Surgical history: Reports: cholecystectomy, hysterectomy, BHARATHI/BSO, other Psychiatric history: Reports: anxiety, depression - Social History Smoking Status: Former smoker Smokeless Tobacco Status: No Alcohol use: Reports: none Drug use: Reports: none Physical Exam - General Limitations: no limitations General appearance: alert, in no apparent distress - Head Head exam: atraumatic, normocephalic - Eye Eye exam: Present: normal appearance, PERRL, EOMI. Absent: scleral icterus - ENT ENT exam: normal exam, normal oropharynx, mucous membranes moist - Neck Neck exam: Present: normal inspection, trachea midline. Absent: full ROM - Chest Chest inspection: Present: normal inspection, symmetric chest wall rise - Respiratory Respiratory exam: Present: normal lung sounds bilaterally. Absent: respiratory distress, wheezes - Cardiovascular Cardiovascular exam: Present: regular rate, normal rhythm, normal heart sounds - Abdominal Exam Abdominal exam: Present: soft, Non-Tender, normal bowel sounds - Extremities Exam Extremities exam: Present: normal inspection, full ROM, normal capillary refill , pedal edema (Bilaterally. Left worse than right), other (Small area of induration to the right tibia. Draining a serous fluid. No erythema.). Absent : tenderness - Back Exam Back exam: Present: normal inspection, full ROM. Absent: tenderness, CVA tenderness (R), CVA tenderness (L) - Neurological Exam Neurological exam: Present: alert, oriented X3 - Psychiatric Psychiatric exam: Present: normal affect, normal mood - Skin Skin exam: Present: warm, dry, intact, pallor. Absent: rash, cyanosis Course Course Narrative: Female patient with a history of anemia presenting to the emergency department being sent from Dr. Richards's office for a low hemoglobin. She had a CBC done today with her hemoglobin showing to be 6.1. Patient complains of shortness of breath at rest and with exertion. Denies any chest pain. She is also complaining of increased swelling to her bilateral lower extremities. She states she has had an increase in her hydralazine dose over the past month and a half to attempt to decrease the size of her legs with no resolution in the left leg and only minor resolution in the right leg. She does have a draining wound to the right lower leg. Does not appear erythematous base a serous liquid draining from it. Does not appear infected. There is no cellulitis around it. We did a ultrasound of her left lower extremities due to it being larger than her right with no DVT appreciated. Her chest x-ray did show a small pleural effusion. Her BMP is significantly elevated. We will give patient a unit of blood while here and admit to the floor for further evaluation of her anemia. She states she has had this worked up several times and sees Dr. Richards for the anemia with no source found. She is resting comfortably while here. - Reevaluation(s) Reevaluation #1: We will give patient a unit of blood while she is here and admit her to the hospitalist for further blood products. She does have CHF so this will have to be a slow process possibly with Lasix added. She is agreeable to this. - Consultations Consultation #1: Sami nurse practitioner accepted patient stable condition. Time: 18:47 Vital Signs Temperature 98 F 10/20/16 14:56 Pulse Rate 78 10/20/16 14:56 Respiratory Rate 21 10/20/16 14:56 Blood Pressure 131/54 10/20/16 14:56 O2 Sat by Pulse Oximetry 89 10/20/16 14:56 Temperature 98.7 F 10/20/16 18:05 Pulse Rate 68 10/20/16 18:05 Respiratory Rate 18 10/20/16 18:05 Blood Pressure 123/71 10/20/16 18:05 O2 Sat by Pulse Oximetry 97 10/20/16 18:05 Oxygen Delivery Oxygen Delivery Nasal Cannula Medical Decision Making - Medical Records Medical records reviewed: Yes I reviewed the patient's medical records. - Lab Data Lab results reviewed: Yes I reviewed the patient's lab results. Result diagrams: 10/20/16 16:37 Lab Results 10/20/16 10/20/16 10/20/16 Range/Units 15:45 15:49 15:57 PT 12.1 (9.4-12.1) Seconds INR 1.1 Sodium (136-145) mEq/L Potassium (3.5-4.5) mEq/L Chloride (98-109) mEq/L Carbon Dioxide (19-29) mEq/L BUN (7-20) mg/dL Creatinine (0.57-1.11) mg/dL Est GFR ( Amer) (> 60) Est GFR (Non-Af Amer) (> 60) BUN/Creatinine Ratio (6-26) Glucose (70-99) mg/dL Calculated Osmolality (280-300) Calcium (8.6-10.8) mg/dL Magnesium (1.6-2.6) mg/dL Total Bilirubin (0.2-1.2) mg/dL AST (5-34) Units/L ALT (0-55) Units/L Alkaline Phosphatase (38-126) Units/L B-Natriuretic Peptide 820 H (0-100) pg/mL Serum Total Protein (6.0-8.3) g/dL Albumin (3.5-5.0) g/dL Globulin (2.4-3.5) g/dL Albumin/Globulin Ratio (1.1-2.2) Specimen Rejected Blood Type A POSITIVE Antibody Screen NEGATIVE Crossmatch See Detail 10/20/16 10/20/16 10/20/16 Range/Units 16:29 16:37 16:39 PT (9.4-12.1) Seconds INR Sodium 143 (136-145) mEq/L Potassium 4.1 (3.5-4.5) mEq/L Chloride 110 H (98-109) mEq/L Carbon Dioxide 26 (19-29) mEq/L BUN 25 H (7-20) mg/dL Creatinine 0.93 (0.57-1.11) mg/dL Est GFR ( Amer) > 60 (> 60) Est GFR (Non-Af Amer) 58 L (> 60) BUN/Creatinine Ratio 27 H (6-26) Glucose 105 H (70-99) mg/dL Calculated Osmolality 301 H (280-300) Calcium 8.6 (8.6-10.8) mg/dL Magnesium 2.2 (1.6-2.6) mg/dL Total Bilirubin 0.4 (0.2-1.2) mg/dL AST 17 (5-34) Units/L ALT 8 (0-55) Units/L Alkaline Phosphatase 71 (38-126) Units/L B-Natriuretic Peptide (0-100) pg/mL Serum Total Protein 5.9 L (6.0-8.3) g/dL Albumin 2.9 L (3.5-5.0) g/dL Globulin 3.0 (2.4-3.5) g/dL Albumin/Globulin Ratio 1.0 L (1.1-2.2) Specimen Rejected Hemolyzed Blood Type Antibody Screen Crossmatch - Radiology Data Radiology results reviewed: Yes I reviewed the patient's radiology results. Chest X-Ray 10/20/16 15:11 IMPRESSION: 1. Cardiomegaly with vascular congestion and small right pleural effusion. D/ / Cm Sun MD / Cm Sun MD Interpreting Provider: Cm Sun MD - EKG Data EKG #1 EKG attestation: Yes I reviewed and interpreted this EKG. EKG results narrative: Normal sinus rhythm at a rate of 69. MI interval is 127. QRS duration is 94. QT is 427. QTC is 447. No signs of acute ischemia. No significant changes from previous EKG dated 08/12/2016.
[2016-10-20 16:12] LABS: INR 1.1; Prothrombin Time 12.1 Seconds (9.4-12.1)
[2016-10-20 17:20] LABS: Alanine Aminotransferase 8 Units/L (0-55); Albumin 2.9 g/dL (3.5-5.0); Alkaline Phosphatase 71 Units/L (38-126); Aspartate Amino Transferase 17 Units/L (5-34); BUN/Creatinine Ratio 27 (6-26); Bilirubin,Total 0.4 mg/dL (0.2-1.2); Blood Urea Nitrogen 25 mg/dL (7-20); Calcium 8.6 mg/dL (8.6-10.8); Carbon Dioxide 26 mEq/L (19-29); Chloride 110 mEq/L (98-109); Glucose 105 mg/dL (70-99); Osmolality,Calculated 301 (280-300); Potassium 4.1 mEq/L (3.5-4.5); Sodium 143 mEq/L (136-145); Total Protein 5.9 g/dL (6.0-8.3); eGFR For African Americans > 60 (> 60); eGFR For Non-African Americans 58 (> 60)
[2016-10-20] MEDS ORDERED: 0.9 % Sodium Chloride 250 ML ONE (17:47)
[2016-10-20] MEDS ORDERED: Naloxone 0.4 MG/ML INJ IVP PRN (20:21)
[2016-10-20] MEDS ORDERED: Furosemide 40 MG/4 ML VIAL IVP ONE (22:18)
[2016-10-20 22:35] LABS: Hemoglobin 6.7 g/dL (11.5-15.4); Mean Platelet Volume 8.9 fL (9.4-12.4)
[2016-10-20 22:36] LABS: Hematocrit 23.1 % (35.3-44.9); Mean Corpuscular Hemoglobin 31.2 pg (28.0-33.3); Mean Corpuscular Volume 107.4 fL (83.0-100.0); Platelet Count 239 K/mcL (140-400); Red Blood Count 2.15 M/mcL (3.82-4.97); Red Cell Distribution Width 19.3 % (11.5-14.5)
[2016-10-20] MEDS ORDERED: Nitroglycerin 0.4 MG TAB.SUBL SL PRN (22:45)
--- NOTE | 2016-10-20 22:51 | Internal Med History&Physical ---
Date of Encounter: 10/20/16 Time of Encounter: 22:48 Assessment and Plan (1) CHF (congestive heart failure) Current visit: No Status: Chronic Acute on chronic. Likely related to noncompliance with diet as well as anemia. We will place the patient on low-sodium diet, 1 L fluid restriction, 40mg of Lasix now after the first unit of blood and 40mg of Lasix daily. Patient just had an echocardiogram 3 months ago so is no indication to repeat this. Continue beta norbert. Qualifiers: Congestive heart failure type: systolic Congestive heart failure chronicity : acute on chronic Qualified Code(s): I50.23 - Acute on chronic systolic ( congestive) heart failure (2) Anemia Current visit: No Status: Chronic Patient has chronic anemia of unknown etiology. Patient follows with hematology and receives transfusions approximately 4 times a year. He has had 2 bone marrow biopsies in the past which have not revealed any etiology. No evidence of acute blood loss anemia at this time. We will transfuse to keep hemoglobin above 8. Qualifiers: Anemia type: unspecified type Qualified Code(s): D64.9 - Anemia, unspecified (3) Hypertension Current visit: No Status: Chronic Mildly hypertensive. We will continue home medications and increase diuretics as above. Continue to monitor blood pressure. Qualifiers: Hypertension type: essential hypertension Qualified Code(s): I10 - Essential (primary) hypertension (4) Anxiety Current visit: No Status: Chronic Stable. Continue home medications. (5) CAD (coronary artery disease) Current visit: No Status: Chronic Stable. No evidence of chest pain. No EKG changes. Continue aspirin and Plavix. Qualifiers: Coronary Disease-Associated Artery/Lesion type: [place] artery [place] vs. transplanted heart: [place] heart Associated angina: angina presence unspecified Qualified Code(s): I25.10 - Atherosclerotic heart disease of [place] coronary artery without angina pectoris (6) Dementia Current visit: No Status: Chronic Stable. Continue Aricept Qualifiers: Dementia type: Alzheimer's disease Alzheimer's disease onset: late-onset Dementia behavioral disturbance: without behavioral disturbance Qualified Code (s): G30.1 - Alzheimer's disease with late onset; F02.80 - Dementia in other diseases classified elsewhere without behavioral disturbance (7) COPD (chronic obstructive pulmonary disease) Current visit: No Status: Chronic Stable. No evidence of acute exacerbation. Continue oxygen therapy and aerosol treatments. Qualifiers: COPD type: emphysema Emphysema type: panlobular Qualified Code(s): J43.1 - Panlobular emphysema (8) DVT prophylaxis Current visit: Yes Status: Acute Heparin 5000 units subcutaneous twice a day. Internal Medicine - H&P: HPI Chief complaint: Dyspnea/lower extremity swelling Admitted From: Emergency Dept Plans for Post Hospital Care: Home History of present illness: Ms. Khalil is a 81 year old female with history of ischemic cardiomyopathy, chronic anemia, COPD, dementia presents with lower extremity swelling and shortness of breath. Patient states that her legs have gotten more and more swollen over the last several weeks. She states she normally has very minimal swelling in her lower extremities bilaterally but that has increased significantly over the last several weeks. She also reports worsening shortness of breath which is made worse by laying flat. Patient states that she has a hospital bed at home and has raised the head of the bed more than normal recently due to her breathing. She denies any chest pain, fever, chills , cough, leg pain. Patient states she does not watch her fluid intake or salt intake as well as she should. Patient also reports generalized fatigue that has gradually been getting worse over the last several weeks. She denies any source of bleeding including hemoptysis, hematochezia, hematemesis, hematuria, epistaxis. Patient does report black stools however her stools have been black since she started taking iron and there is been no change recently. Patient sees hematology for chronic anemia and has had several bone marrow biopsies in the etiology of this is unknown. She receives blood transfusions approximately 4 times year. Past Med Surg Social Fam HX - Past Medical History Medical history: arthritis, CHF, COPD, coronary artery disease, dementia, GERD, hyperlipidemia, hypertension, myocardial infarction, osteoporosis, peripheral artery disease, renal disease, other Psychiatric history: anxiety, depression - Past Surgical History Surgical History: cholecystectomy, hysterectomy, BHARATHI/BSO, other - Social History Smoking Status: Former smoker Smokeless Tobacco Status: No Alcohol use: none Drug use: none - Family History Father Living Status: Hx Family Cardiac Disorders: Yes Hx Family Cancer: Yes (RCC) Mother Living Status: Hx Family Cardiac Disorders: Yes Hx Family Cancer: Yes (bladder cancer) Internal Medicine - H&P: Meds Budesonide/Formoterol 160/4.5 [Symbicort] 2 puff IH BID 02/20/15 [History] Clopidogrel [Plavix] 75 mg PO DAILY 02/20/15 [History] Tiotropium [Spiriva] 18 mcg IH DAILY 02/20/15 [History] Donepezil [Aricept] 10 mg PO HS 04/03/15 [History] Alendronate Sodium [Fosamax] 70 mg PO MO 07/09/15 [History] Ascorbate Calcium [Vitamin C] 500 mg PO DAILY 07/09/15 [History] Aspirin [Adult Low Dose Aspirin EC] 81 mg PO DAILY 07/09/15 [History] Calcium Carbonate/Vitamin D3 [Calcium 500-Vit D3 400 Tablet] 1 tab PO DAILY 04/13 [History] Isosorbide MONOnitrate (24 HR) [Imdur] 60 mg PO DAILY 07/09/15 [History] Losartan [Cozaar] 100 mg PO DAILY 07/09/15 [History] Metoprolol XL (24 HR) Succ [Toprol Xl] 25 mg PO DAILY 07/09/15 [History] Simvastatin [Zocor] 40 mg PO HS 07/09/15 [History] Albuterol Neb [Proventil Neb] 2.5 mg IH TID 07/04/16 [History] LORazepam [Ativan] 1 mg PO HS #10 07/12/16 [Rx] HYDROcodone/Acet 7.5/325 mg [[place] 7.5-325 mg] 1 tab PO Q3H PRN #240 tablet 11/12 [Rx] LORazepam [Lorazepam] 0.5 mg PO Q6H PRN 08/12/16 [History] Melatonin 10 mg PO HS 08/12/16 [History] Albuterol Sulfate [Proair Hfa] 2 puff IH Q4H PRN 10/20/16 [History] Ferrous Sulfate 325 mg PO DAILY 10/20/16 [History] Furosemide [Lasix] 40 mg PO DAILY 10/20/16 [History] Hydralazine HCl 50 mg PO TID 10/20/16 [History] Nitroglycerin [Nitrostat] 0.4 mg SL Q5M PRN 10/20/16 [History] Oxygen 3 l NS CONT 10/20/16 [History] Potassium Chloride [K-Tab ER] 20 meq PO DAILY 10/20/16 [History] Sertraline [Zoloft] 100 mg PO DAILY 10/20/16 [History] buPROPion HCl [Bupropion HCl Sr] 200 mg PO BID 10/20/16 [History] Allergies citalopram [From Celexa] Allergy (Verified 10/20/16 15:01) Abdominal Pain haloperidol [From Haldol] Allergy (Verified 10/20/16 15:01) Hallucinating amlodipine [From Norvasc] Adverse Reaction (Verified 10/20/16 15:01) Nausea risperidone Adverse Reaction (Verified 10/20/16 15:02) See Comments AMS roflumilast [From Daliresp] Adverse Reaction (Verified 10/20/16 15:01) Difficulty Breathing All Systems PM: A 10-system review of systems was performed and is negative for pertinent findings except as documented above in the HPI. - Constitutional Constitutional: weakness, weight gain, no anorexia, no fever(s) - EENT Eyes: no blurry vision, no change in vision Nose, mouth and throat: no sinus pain, no sinus pressure, no sore throat - Cardiovascular Cardiovascular ROS IM: dyspnea, dyspnea on exertion, edema, orthopnea, no chest pain, no irregular heart rhythm, no syncope - Respiratory Respiratory: dyspnea, no cough, no hemoptysis, no chest congestion, no excessive phlegm production, no change in phlegm color - Gastrointestinal Gastrointestinal: melena, no abdominal pain, no change in stool character, no diarrhea, no hematemesis, no hematochezia, no nausea, no vomiting - Genitourinary Genitourinary: no dysuria, no hematuria, no menorrhagia - Musculoskeletal Musculoskeletal ROS IM: no numbness, no tingling - Integumentary Integumentary IM: non-healing lesions, no rash - Neurological Neurological ROS: no numbness, no tingling - Psychiatric Psychiatric: no anxiety - Hematologic/Lymphatic Hematologic/Lymphatic: no easy bleeding, no easy bruising - Constitutional Vitals: Temp Pulse Resp BP Pulse Ox 97.8 F 70 18 142/53 98 10/20/16 20:29 10/20/16 20:29 10/20/16 20:29 10/20/16 20:29 10/20/16 20:29 General appearance: Present: A&O X 3, pleasant, no acute distress - Head Head exam: Present: atraumatic, normal inspection, normocephalic - Eye Eye exam: Present: EOMI, PERRL - ENT ENT exam: Present: mucous membranes dry - Neck Neck exam general surgery: Present: full ROM. Absent: nuchal rigidity - Respiratory Respiratory exam: Present: rales (bibasilar). Absent: rhonchi, wheezes - Cardiovascular Cardiovascular exam: Present: JVD, RRR, +S1, +S2. Absent: gallop, rubs, +S3, systolic murmur - GI/Abdominal GI/Abdominal exam: Present: normal bowel sounds, soft. Absent: distended, tenderness - Extremities Exam Extremities exam: Present: pedal edema (3+), warm. Absent: calf tenderness, tenderness - Neurological Exam Neurological exam: Present: alert, CN II-XII intact, oriented X3, no focal deficits - Skin Additional comments: Patient has an approximately 1 cm round wound on her right lower extremity. There is granulation tissue, there is no surrounding erythema. There is a small amount of clear fluid draining. There is approximately. There is approximately 1 cm tract under the skin. Internal Med - H&P Results - Labs CBC & Chem 7: 10/20/16 22:29 10/20/16 16:37 Labs: Short CBC 10/20/16 Range/Units 22:29 WBC 6.1 (4.3-11.1) K/mcL Hgb 6.7 L (11.5-15.4) g/dL Hct 23.1 L (35.3-44.9) % Plt Count 239 (140-400) K/mcL
--- NOTE | 2016-10-20 22:59 | Event Note ---
Date of Encounter: 10/20/16 Time of Encounter: 22:58 Patient seen and examined with regional medical director. Agree with assessment and plan. 2 units of blood transfusion. Hematology to see the patient in the morning. Lasix 40 mg IV daily for acute congestive heart failure due to diastolic dysfunction and anemic heart failure.
[2016-10-20] MEDS: *HR* LORazepam 1 MG TABLET PO SCH (23:33)
[2016-10-20] MEDS: *HR* HYDROcodone/Acet 7.5/325 mg TABLET PO SCH (23:33)
[2016-10-21] MEDS ORDERED: 0.9 % Sodium Chloride 250 ML ONE (00:02)
[2016-10-21] MEDS: Budesonide/Formoterol 160/4.5 MDI IH SCH ×3 (00:12→21:13)
[2016-10-21] MEDS: Albuterol 2.5 MG/3 ML NEBULIZER IH SCH ×2 (04:17→08:34)
[2016-10-21] MEDS: *HR* Heparin 5,000 UNIT/ML VIAL SQ SCH ×2 (04:59→18:13)
[2016-10-21] MEDS: *HR* HYDROcodone/Acet 7.5/325 mg TABLET PO SCH ×4 (04:59→14:32)
[2016-10-21 08:11] LABS: Basophils % 0.4 %; Eosinophils # 0.2 K/mcL (0.0-0.6); Eosinophils % 2.3 %; Hematocrit 25.4 % (35.3-44.9); Hemoglobin 7.7 g/dL (11.5-15.4); Immature Granulocytes % 0.6 % (0-4); Lymphocytes # 0.8 K/mcL (0.6-4.6); Mean Corpuscular HGB Conc 30.3 g/dL (31.6-35.5); Mean Corpuscular Hemoglobin 31.8 pg (28.0-33.3); Mean Platelet Volume 8.9 fL (9.4-12.4); Monocytes # 0.7 K/mcL (0.0-1.3); Monocytes % 10.1 %; Neutrophils # 5.2 K/mcL (1.6-8.9); Platelet Count 212 K/mcL (140-400); Red Blood Count 2.42 M/mcL (3.82-4.97); Red Cell Distribution Width 19.2 % (11.5-14.5); Segmented Neutrophils % 75.6 %
[2016-10-21 08:18] LABS: INR 1.2; Prothrombin Time 12.6 Seconds (9.4-12.1)
[2016-10-21 08:24] LABS: Alanine Aminotransferase 8 Units/L (0-55); Albumin 2.9 g/dL (3.5-5.0); Alkaline Phosphatase 71 Units/L (38-126); Aspartate Amino Transferase 14 Units/L (5-34); BUN/Creatinine Ratio 29 (6-26); Blood Urea Nitrogen 24 mg/dL (7-20); Calcium 8.9 mg/dL (8.6-10.8); Carbon Dioxide 26 mEq/L (19-29); Chloride 111 mEq/L (98-109); Glucose 89 mg/dL (70-99); Magnesium 1.6 mg/dL (1.6-2.6); Osmolality,Calculated 302 (280-300); Potassium 3.7 mEq/L (3.5-4.5); Sodium 144 mEq/L (136-145); Total Protein 5.9 g/dL (6.0-8.3); eGFR For African Americans > 60 (> 60); eGFR For Non-African Americans > 60 (> 60)
[2016-10-21] MEDS: Aspirin Enteric Coated 81 MG Tablet PO SCH (09:35)
[2016-10-21] MEDS: hydrALAZINE 25 MG TABLET PO SCH ×3 (09:35→20:50)
[2016-10-21] MEDS: *HR* LORazepam 0.5 MG TABLET PO PRN (09:35)
[2016-10-21] MEDS: Isosorbide MONOnitrate (24 HR) 60 MG TAB.ER.24H PO SCH (09:36)
[2016-10-21] MEDS: Metoprolol XL (24 HR) Succ 25 MG TAB.ER.24H PO SCH (09:36)
[2016-10-21] MEDS: BuPROPion SR (12 HR) 100 MG TABLET PO SCH ×2 (09:36→20:50)
[2016-10-21] MEDS: Furosemide 40 MG/4 ML VIAL IVP SCH (09:37)
[2016-10-21] MEDS ORDERED: Ipratropium Neb 0.5 MG NEBULIZER IH ONE (09:42)
[2016-10-21] MEDS ORDERED: Tiotropium 18 MCG inhalation IH SCH (10:00)
--- NOTE | 2016-10-21 10:20 | Internal Med Progress Note ---
<Sorin Marte P - Last Filed: 10/21/16 14:48> Date of Encounter: 10/21/16 - Constitutional Vitals: Temp Pulse Resp BP Pulse Ox 97.9 F 76 24 130/54 95 10/21/16 07:00 10/21/16 11:00 10/21/16 11:00 10/21/16 14:34 10/21/16 11:43 Internal Medicine: Result - Labs CBC & Chem 7: 10/21/16 08:03 10/21/16 08:03 Labs: Short CBC 10/20/16 10/21/16 Range/Units 22:29 08:03 WBC 6.1 6.8 (4.3-11.1) K/mcL Hgb 6.7 L 7.7 L (11.5-15.4) g/dL Hct 23.1 L 25.4 L (35.3-44.9) % Plt Count 239 212 (140-400) K/mcL Neutrophils # 5.2 (1.6-8.9) K/mcL BMP 10/21/16 08:03 Sodium 144 Potassium 3.7 Chloride 111 H Carbon Dioxide 26 BUN 24 H Creatinine 0.84 Glucose 89 Calcium 8.9 Liver Function 10/21/16 Range/Units 08:03 Total Bilirubin 1.0 D (0.2-1.2) mg/dL AST 14 (5-34) Units/L ALT 8 (0-55) Units/L Alkaline Phosphatase 71 (38-126) Units/L Albumin 2.9 L (3.5-5.0) g/dL - ABG Interpretation ABG results: PT/INR, D-dimer PT 12.6 Seconds (9.4-12.1) H 10/21/16 08:03 Consult Discharge Plan - Plan Referrals: NO,PCP [Primary Care Provider] - - Attending Attestation I examined this patient and my medical decision-making was reviewed with the WATER SYSTEMS DESIGNER/PA/Advanced Practice Nurse/Resident Physician. I agree with the documented findings, disposition and treatment plan as described except to the extent set forth below. <Dell Francis - Last Filed: 10/21/16 20:48> Date of Encounter: 10/21/16 Time of Encounter: 09:40 - Assessment and plan (1) Anemia Current Visit: Yes Status: Chronic Assessment and plan: Patient has chronic anemia of unknown etiology. Concern that this may be contributing to patient's shortness of breath, as Hgb found to be 6.7. She has been seen and follows with hematology, requiring transfusions approximately 4 times a year. Noted to have 2 bone marrow biopsies in the past which did not revealed any etiology. Anemia workup on 07/05/16 with iron 14, 5% saturation, transferrin 205, erythropoietin 40, ferritin 114, Vit B12 355, folate 11.8. Patient on Iron replacement with ferrous sulfate. No signs of active bleeding. Patient received 2 units of pRBC. Qualifiers: Vitamin B12 deficiency anemia type: unspecified B12 deficiency Qualified Code(s): D64.9 - Anemia, unspecified (2) CHF (congestive heart failure) Current Visit: Yes Status: Chronic Assessment and plan: Acute on chronic CHF. Likely contributing, in addition to anemia, to patient's shortness of breath. Recommend low-sodium diet, 1 L fluid restriction. Continue to diuresis with Lasix Echocardiogram 3 months ago, no indication to repeat at this time. Continue beta norbert. Qualifiers: Congestive heart failure type: unspecified congestive heart failure type Congestive heart failure chronicity: acute on chronic Qualified Code(s): I50.9 - Heart failure, unspecified (3) CAD (coronary artery disease) Current Visit: No Status: Chronic Assessment and plan: Continue ASA and plavix. Qualifiers: Coronary Disease-Associated Artery/Lesion type: [place] artery [place] vs. transplanted heart: [place] heart Associated angina: angina presence unspecified Qualified Code(s): I25.10 - Atherosclerotic heart disease of [place] coronary artery without angina pectoris (4) Anxiety Current Visit: No Status: Chronic Assessment and plan: Continue home medications. (5) COPD (chronic obstructive pulmonary disease) Current Visit: No Status: Chronic Assessment and plan: Consider possible COPD exacerbation with patient's shortness of breath. Spiriva stopped and duoneb treatments scheduled. Supplemental oxygen as needed, will titrate to O2 sat >92%. Consider steroids for possible AECOPD. Qualifiers: COPD type: emphysema Emphysema type: panlobular Qualified Code(s): J43.1 - Panlobular emphysema (6) Dementia Current Visit: No Status: Chronic Assessment and plan: Stable, Continue Aricept. Qualifiers: Dementia type: Alzheimer's disease Alzheimer's disease onset: late-onset Dementia behavioral disturbance: without behavioral disturbance Qualified Code (s): G30.1 - Alzheimer's disease with late onset; F02.80 - Dementia in other diseases classified elsewhere without behavioral disturbance (7) Hypertension Current Visit: No Status: Chronic Assessment and plan: stable, continue home medications. Qualifiers: Hypertension type: essential hypertension Qualified Code(s): I10 - Essential (primary) hypertension - Time Spent With Patient 25 - 35 minutes - Subjective Interval history: When patient initially seen this AM, she was having shortness of breath, feeling "smothered", though O2 saturation was 95%. Switched from albuterol and spiriva inhalers to duoneb neb treatments; started on lasix, and patient's anxiety and pain medication. Upon reexamination she states she is breathing more easily now. Patient also received 2 units pRBC overnight/this morning. - Constitutional Vitals: Temp Pulse Resp BP Pulse Ox 97.9 F 75 18 167/65 97 10/21/16 07:00 10/21/16 07:00 10/21/16 07:00 10/21/16 07:00 10/21/16 07:00 General appearance: Present: pleasant, no acute distress, answers questions appropriately - Head Head exam: Present: atraumatic, normocephalic - Eye Eye exam: Present: EOMI - ENT ENT exam: Present: mucous membranes moist - Neck Neck exam general surgery: Present: supple - Respiratory Respiratory exam: Present: decreased breath sounds, wheezes - Cardiovascular Cardiovascular exam: Present: irregular rhythm - GI/Abdominal GI/Abdominal exam: Present: soft. Absent: firm, guarding - Extremities Exam Extremities exam: Present: pedal edema (2+ BLE pitting edema, wound on R medial calf.) - Neurological Exam Neurological exam: Present: alert, no focal deficits. Absent: speech deficit - Psychiatric Psychiatric exam: Present: anxious - Skin Skin exam: Present: dry, normal color. Absent: cyanosis Internal Medicine: Result - Labs CBC & Chem 7: 10/21/16 08:03 10/21/16 08:03 Labs: Short CBC 10/20/16 10/21/16 Range/Units 22:29 08:03 WBC 6.1 6.8 (4.3-11.1) K/mcL Hgb 6.7 L 7.7 L (11.5-15.4) g/dL Hct 23.1 L 25.4 L (35.3-44.9) % Plt Count 239 212 (140-400) K/mcL Neutrophils # 5.2 (1.6-8.9) K/mcL BMP 10/21/16 08:03 Sodium 144 Potassium 3.7 Chloride 111 H Carbon Dioxide 26 BUN 24 H Creatinine 0.84 Glucose 89 Calcium 8.9 Liver Function 10/21/16 Range/Units 08:03 Total Bilirubin 1.0 D (0.2-1.2) mg/dL AST 14 (5-34) Units/L ALT 8 (0-55) Units/L Alkaline Phosphatase 71 (38-126) Units/L Albumin 2.9 L (3.5-5.0) g/dL - ABG Interpretation ABG results: PT/INR, D-dimer PT 12.6 Seconds (9.4-12.1) H 10/21/16 08:03
[2016-10-21] MEDS: Ipratropium/Albuterol Neb 3 ML IH SCH ×3 (15:49→21:13)
--- NOTE | 2016-10-21 16:31 | Electrocardiograph Report ---
[place] [id number] Test Date: 2016-10-20 Pat Name: Mayra Khalil Department: 102 Room: [facility] Gender: F Crop And Soil Scientist: Mary : 1935 Requested By: Sharmaine Benjamin Order Number: [id number] Reading MD: Nina Torres Measurements Intervals [place] Rate: 69 P: 68 ME: 127 QRS: 56 QRSD: 94 T: 47 QT: 427 QTc: 447 Interpretive Statements SINUS RHYTHM WITH SINUS ARRHYTHMIA NONSPECIFIC ST \T\ T-WAVE ABNORMALITY Electronically Signed On 10-21-2016 16:30:03 EDT by Nina Torres
--- NOTE | 2016-10-21 16:48 | Electrocardiograph Report ---
[place] [id number] Test Date: 2016-10-21 Pat Name: Mayra Khalil Department: 111 Room: [facility] Gender: F Bakery Assistant: MAURICIO : 1935 Requested By: Sorin Marte Order Number: [id number] Reading MD: Nina Torres Measurements Intervals [place] Rate: 77 P: 48 MT: 112 QRS: 55 QRSD: 98 T: 67 QT: 337 QTc: 368 Interpretive Statements SINUS RHYTHM WITH SHORT MT INTERVAL NONSPECIFIC ST \T\ T-WAVE ABNORMALITY Electronically Signed On 10-21-2016 16:47:16 EDT by Nina Torres
--- NOTE | 2016-10-21 19:28 | Venous Imaging Report ---
LE Venous Duplex Patient Name:Mayra Khalil Order Number:[id number] Procedure Date:10/20/2016 Date:8Age:81 yrs Gender:Female Location:[facility] ED Room #: 27 Callisthenics Instructor:Faisal Li Referring MD:Sharmaine Benjamin DO buggy driver:Ismael Hernández MD Reading MD:Catrachito Kim MD Primary Indications:Rule out DVT Secondary Indications: Risk Factors Yes/No Hx of DVT No Hypertension Yes Impressions: Left lower extremity: normal superficial and deep exam. Findings Prior Study: No prior study available for comparison. Lower Extremity Venous Duplex Side Vein Compress Spontaneous Flow Augment Diameter (cm) Depth (cm) Left Distal Iliac Normal Yes Phasic Yes Left Common Femoral Normal Yes Phasic Yes Left Superficial Femoral Normal Yes Phasic Yes Left Popliteal Normal Yes Phasic Yes Left Posterior Tibial Normal Yes Phasic Yes Left Peroneal Normal Yes Phasic Yes Left [place]henofemoral [place] Normal Yes Phasic Yes Left Great Saphenous Normal Yes Phasic Yes Left Lesser Saphenous Normal Yes Phasic Yes Right Common Femoral Normal Yes Phasic Yes Updated by Catrachito Kim MD on 10/21/2016 7:23:12 PM electronically signed on 10/21/2016 7:23:28 PM with status of Final
[2016-10-21] MEDS: Melatonin 3 MG TABLET PO SCH (20:49)
[2016-10-21] MEDS: *HR* LORazepam 1 MG TABLET PO SCH (20:50)
[2016-10-21] MEDS ORDERED: *HR* LORazepam 1 MG TABLET PO SCH (21:00)
[2016-10-21] MEDS ORDERED: *HR* LORazepam 2 MG/ML VIAL IVP ONE (22:06)
[2016-10-21] MEDS ORDERED: *HR* LORazepam 2 MG/ML VIAL ONE (22:08)
[2016-10-22] MEDS: *HR* HYDROcodone/Acet 7.5/325 mg TABLET PO PRN ×2 (01:59→10:59)
[2016-10-22] MEDS: Ipratropium/Albuterol Neb 3 ML IH SCH ×4 (03:13→22:25)
[2016-10-22 04:43] LABS: Basophils % 0.4 %; Eosinophils # 0.1 K/mcL (0.0-0.6); Eosinophils % 1.3 %; Hemoglobin 7.4 g/dL (11.5-15.4); Immature Granulocytes % 0.4 % (0-4); Lymphocytes % 13.7 %; Mean Corpuscular HGB Conc 29.6 g/dL (31.6-35.5); Mean Corpuscular Hemoglobin 31.1 pg (28.0-33.3); Mean Platelet Volume 9.6 fL (9.4-12.4); Monocytes # 0.7 K/mcL (0.0-1.3); Monocytes % 9.8 %; Neutrophils # 5.5 K/mcL (1.6-8.9); Platelet Count 215 K/mcL (140-400); Red Blood Count 2.38 M/mcL (3.82-4.97); Red Cell Distribution Width 18.8 % (11.5-14.5); Segmented Neutrophils % 74.4 %
[2016-10-22 04:56] LABS: BUN/Creatinine Ratio 25 (6-26); Blood Urea Nitrogen 22 mg/dL (7-20); Calcium 8.9 mg/dL (8.6-10.8); Carbon Dioxide 25 mEq/L (19-29); Chloride 109 mEq/L (98-109); Glucose 89 mg/dL (70-99); Magnesium 1.7 mg/dL (1.6-2.6); Osmolality,Calculated 297 (280-300); Potassium 3.8 mEq/L (3.5-4.5); Sodium 142 mEq/L (136-145); eGFR For African Americans > 60 (> 60); eGFR For Non-African Americans > 60 (> 60)
--- NOTE | 2016-10-22 08:31 | Internal Med Progress Note ---
<Dell Francis - Last Filed: 10/22/16 09:30> Date of Encounter: 10/22/16 Time of Encounter: 08:25 - Assessment and plan (1) Anemia Current Visit: Yes Status: Chronic Assessment and plan: Hgb 6.7>7.7>7.4 Patient has chronic anemia of unknown etiology. Concern that this may be contributing to patient's shortness of breath, as Hgb found to be 6.7 on admission. She has been seen and follows with hematology, requiring transfusions approximately 4 times a year. Noted to have 2 bone marrow biopsies in the past which did not revealed any etiology. Anemia workup on 07/05/16 with iron 14, 5% saturation, transferrin 205, erythropoietin 40, ferritin 114, Vit B12 355, folate 11.8. Patient on Iron replacement with ferrous sulfate. No signs of active bleeding. Patient received 2 units of pRBC. Qualifiers: Vitamin B12 deficiency anemia type: unspecified B12 deficiency Qualified Code(s): D64.9 - Anemia, unspecified (2) CHF (congestive heart failure) Current Visit: Yes Status: Chronic Assessment and plan: Acute on chronic CHF. Likely contributing, in addition to anemia, to patient's shortness of breath. Recommend low-sodium diet, 1 L fluid restriction. Continue to diuresis with Lasix, BLE edema improving. Echocardiogram 3 months ago, no indication to repeat at this time. Continue beta norbert. Qualifiers: Congestive heart failure type: unspecified congestive heart failure type Congestive heart failure chronicity: acute on chronic Qualified Code(s): I50.9 - Heart failure, unspecified (3) COPD (chronic obstructive pulmonary disease) Current Visit: No Status: Chronic Assessment and plan: Possible COPD exacerbation with patient's shortness of breath. Spiriva stopped and duoneb treatments scheduled. Supplemental oxygen as needed, will titrate to O2 sat >92%. Consider steroids for possible AECOPD. Qualifiers: COPD type: emphysema Emphysema type: panlobular Qualified Code(s): J43.1 - Panlobular emphysema (4) Anxiety Current Visit: No Status: Chronic Assessment and plan: Ativan 0.5mg PO Q6H PRN. Bupropion 200mg PO BID KAMRAN (5) CAD (coronary artery disease) Current Visit: No Status: Chronic Assessment and plan: Continue ASA and plavix. Qualifiers: Coronary Disease-Associated Artery/Lesion type: [place] artery [place] vs. transplanted heart: [place] heart Associated angina: angina presence unspecified Qualified Code(s): I25.10 - Atherosclerotic heart disease of [place] coronary artery without angina pectoris (6) Dementia Current Visit: No Status: Chronic Assessment and plan: Stable, Continue Aricept. Qualifiers: Dementia type: Alzheimer's disease Alzheimer's disease onset: late-onset Dementia behavioral disturbance: without behavioral disturbance Qualified Code (s): G30.1 - Alzheimer's disease with late onset; F02.80 - Dementia in other diseases classified elsewhere without behavioral disturbance (7) Hypertension Current Visit: No Status: Chronic Assessment and plan: stable, continue home medications. Qualifiers: Hypertension type: essential hypertension Qualified Code(s): I10 - Essential (primary) hypertension - Time Spent With Patient less than 15 minutes - Subjective Interval history: Patient sleeping upon exam, easily arousable. Denies any respiratory distress currently, but recalled episode during the night of shortness of breath. She states she is unsure if caused by anxiety, but when asked about history of panic attacks she confirms history and states episode last night similar. - Constitutional Vitals: Temp Pulse Resp BP Pulse Ox 98.2 F 78 15 138/74 98 10/22/16 06:56 10/22/16 06:56 10/22/16 06:56 10/22/16 06:56 10/22/16 06:56 General appearance: Present: cooperative, pleasant, no acute distress, answers questions appropriately - Head Head exam: Present: atraumatic, normocephalic - Eye Eye exam: Present: conjuntiva pink, sclera anicteric - ENT ENT exam: Present: mucous membranes moist - Neck Neck exam general surgery: Present: supple - Respiratory Respiratory exam: Present: CTAB. Absent: rales, rhonchi, wheezes - Cardiovascular Cardiovascular exam: Present: RRR. Absent: tachycardia - GI/Abdominal GI/Abdominal exam: Present: soft. Absent: firm, guarding, tenderness - Extremities Exam Extremities exam: Present: pedal edema (slight improved from yesterday, 1+ pitting pretibial edema b/l), warm. Absent: cyanotic, tenderness Additional comments: wound to right medial calf. - Neurological Exam Neurological exam: Present: alert, no focal deficits. Absent: speech deficit - Psychiatric Additional comments: calm at this time, noted to be anxious at times. - Skin Skin exam: Present: dry, normal color, warm Internal Medicine: Result - Labs CBC & Chem 7: 10/22/16 03:57 10/22/16 03:57 Labs: Short CBC 10/22/16 Range/Units 03:57 WBC 7.4 (4.3-11.1) K/mcL Hgb 7.4 L (11.5-15.4) g/dL Hct 25.0 L (35.3-44.9) % Plt Count 215 (140-400) K/mcL Neutrophils # 5.5 (1.6-8.9) K/mcL BMP 10/22/16 03:57 Sodium 142 Potassium 3.8 Chloride 109 Carbon Dioxide 25 BUN 22 H Creatinine 0.87 Glucose 89 Calcium 8.9 - ABG Interpretation ABG results: PT/INR, D-dimer PT 12.6 Seconds (9.4-12.1) H 10/21/16 08:03 Consult Discharge Plan - Plan Referrals: NO,PCP [Non-Partnered Physician] - <Sorin Marte P - Last Filed: 10/22/16 13:15> Date of Encounter: 10/22/16 - Constitutional Vitals: Temp Pulse Resp BP Pulse Ox 98.2 F 78 16 138/74 97 10/22/16 06:56 10/22/16 06:56 10/22/16 10:19 10/22/16 06:56 10/22/16 10:19 Internal Medicine: Result - Labs CBC & Chem 7: 10/22/16 03:57 10/22/16 03:57 Labs: Short CBC 10/22/16 Range/Units 03:57 WBC 7.4 (4.3-11.1) K/mcL Hgb 7.4 L (11.5-15.4) g/dL Hct 25.0 L (35.3-44.9) % Plt Count 215 (140-400) K/mcL Neutrophils # 5.5 (1.6-8.9) K/mcL BMP 10/22/16 03:57 Sodium 142 Potassium 3.8 Chloride 109 Carbon Dioxide 25 BUN 22 H Creatinine 0.87 Glucose 89 Calcium 8.9 - ABG Interpretation ABG results: PT/INR, D-dimer PT 12.6 Seconds (9.4-12.1) H 10/21/16 08:03 - Attending Attestation I examined this patient and my medical decision-making was reviewed with the MOLD SHIFTER/PA/Advanced Practice Nurse/Resident Physician. I agree with the documented findings, disposition and treatment plan as described except to the extent set forth below.
[2016-10-22] MEDS: *HR* Heparin 5,000 UNIT/ML VIAL SQ SCH ×2 (08:59→17:50)
[2016-10-22] MEDS: hydrALAZINE 25 MG TABLET PO SCH ×3 (08:59→21:11)
[2016-10-22] MEDS: Furosemide 40 MG/4 ML VIAL IVP SCH (08:59)
[2016-10-22] MEDS: BuPROPion SR (12 HR) 100 MG TABLET PO SCH ×2 (09:00→21:11)
[2016-10-22] MEDS: Metoprolol XL (24 HR) Succ 25 MG TAB.ER.24H PO SCH (09:00)
[2016-10-22] MEDS: Aspirin Enteric Coated 81 MG Tablet PO SCH (09:00)
[2016-10-22] MEDS: Isosorbide MONOnitrate (24 HR) 60 MG TAB.ER.24H PO SCH (09:00)
[2016-10-22] MEDS: Budesonide/Formoterol 160/4.5 MDI IH SCH ×2 (10:19→22:25)
[2016-10-22] MEDS: *HR* LORazepam 0.5 MG TABLET PO PRN (10:59)
[2016-10-22] MEDS ORDERED: *HR* LORazepam 1 MG TABLET PO PRN (21:00)
[2016-10-22] MEDS ORDERED: *HR* LORazepam 1 MG TABLET PO SCH (21:00)
[2016-10-22] MEDS: Melatonin 3 MG TABLET PO SCH (21:10)
[2016-10-23] MEDS: Ipratropium/Albuterol Neb 3 ML IH SCH ×2 (04:44→10:16)
[2016-10-23 05:39] LABS: Basophils % 0.4 %
[2016-10-23 05:41] LABS: Eosinophils # 0.1 K/mcL (0.0-0.6); Eosinophils % 2.3 %; Hematocrit 23.6 % (35.3-44.9); Immature Granulocytes % 0.6 % (0-4); Immature Platelets 2.3 % (1.1-6.1); Mean Corpuscular HGB Conc 29.7 g/dL (31.6-35.5); Mean Corpuscular Hemoglobin 31.7 pg (28.0-33.3); Mean Corpuscular Volume 106.8 fL (83.0-100.0); Mean Platelet Volume 9.6 fL (9.4-12.4); Monocytes # 0.6 K/mcL (0.0-1.3); Monocytes % 11.9 %; Neutrophils # 3.4 K/mcL (1.6-8.9); Platelet Count 212 K/mcL (140-400); Red Blood Count 2.21 M/mcL (3.82-4.97); Segmented Neutrophils % 64.8 %
[2016-10-23] MEDS: *HR* Heparin 5,000 UNIT/ML VIAL SQ SCH (05:42)
[2016-10-23 06:03] LABS: Hypochromasia Present (Not Present)
[2016-10-23 06:04] LABS: Anisocytosis 1+ (Not Present)
[2016-10-23 06:05] LABS: Polychromasia 1+ (Not Present)
[2016-10-23] MEDS: Isosorbide MONOnitrate (24 HR) 60 MG TAB.ER.24H PO SCH (07:44)
[2016-10-23] MEDS: BuPROPion SR (12 HR) 100 MG TABLET PO SCH (07:44)
[2016-10-23] MEDS: Furosemide 40 MG/4 ML VIAL IVP SCH (07:44)
[2016-10-23] MEDS: Metoprolol XL (24 HR) Succ 25 MG TAB.ER.24H PO SCH (07:44)
[2016-10-23] MEDS: hydrALAZINE 25 MG TABLET PO SCH (07:45)
[2016-10-23] MEDS: *HR* LORazepam 0.5 MG TABLET PO PRN (07:45)
[2016-10-23] MEDS: Aspirin Enteric Coated 81 MG Tablet PO SCH (07:45)
[2016-10-23 07:54] VITALS: BP 133/59
[2016-10-23] MEDS: *HR* HYDROcodone/Acet 7.5/325 mg TABLET PO PRN (07:58)
[2016-10-23] MEDS: Budesonide/Formoterol 160/4.5 MDI IH SCH (10:16)
--- NOTE | 2016-10-23 10:53 | Discharge Summary ---
<Dell Francis - Last Filed: 10/23/16 12:54> Date of Encounter: 10/23/16 Time of Encounter: 09:00 - Discharge Diagnosis (1) Anemia Priority: Primary Status: Chronic Qualifiers: Vitamin B12 deficiency anemia type: unspecified B12 deficiency Qualified Code(s): D64.9 - Anemia, unspecified (2) CHF (congestive heart failure) Priority: Secondary Status: Chronic Qualifiers: Congestive heart failure type: unspecified congestive heart failure type Congestive heart failure chronicity: acute on chronic Qualified Code(s): I50.9 - Heart failure, unspecified (3) COPD (chronic obstructive pulmonary disease) Priority: Secondary Status: Chronic Qualifiers: COPD type: emphysema Emphysema type: panlobular Qualified Code(s): J43.1 - Panlobular emphysema (4) Anxiety Priority: Secondary Status: Chronic (5) CAD (coronary artery disease) Priority: Secondary Status: Chronic Qualifiers: Coronary Disease-Associated Artery/Lesion type: [place] artery [place] vs. transplanted heart: [place] heart Associated angina: angina presence unspecified Qualified Code(s): I25.10 - Atherosclerotic heart disease of [place] coronary artery without angina pectoris (6) Dementia Priority: Secondary Status: Chronic Qualifiers: Dementia type: Alzheimer's disease Alzheimer's disease onset: late-onset Dementia behavioral disturbance: without behavioral disturbance Qualified Code (s): G30.1 - Alzheimer's disease with late onset; F02.80 - Dementia in other diseases classified elsewhere without behavioral disturbance (7) Hypertension Priority: Secondary Status: Chronic Qualifiers: Hypertension type: essential hypertension Qualified Code(s): I10 - Essential (primary) hypertension - Discharge Medications Prescriptions: Furosemide [Lasix] 60 mg PO DAILY #30 tablet Home Medications: Budesonide/Formoterol 160/4.5 [Symbicort] 2 puff IH BID 02/20/15 [History] Clopidogrel [Plavix] 75 mg PO DAILY 02/20/15 [History] Tiotropium [Spiriva] 18 mcg IH DAILY 02/20/15 [History] Donepezil [Aricept] 10 mg PO HS 04/03/15 [History] Alendronate Sodium [Fosamax] 70 mg PO MO 07/09/15 [History] Ascorbate Calcium [Vitamin C] 500 mg PO DAILY 07/09/15 [History] Aspirin [Adult Low Dose Aspirin EC] 81 mg PO DAILY 07/09/15 [History] Calcium Carbonate/Vitamin D3 [Calcium 500-Vit D3 400 Tablet] 1 tab PO DAILY 04/13 [History] Isosorbide MONOnitrate (24 HR) [Imdur] 60 mg PO DAILY 07/09/15 [History] Losartan [Cozaar] 100 mg PO DAILY 07/09/15 [History] Metoprolol XL (24 HR) Succ [Toprol Xl] 25 mg PO DAILY 07/09/15 [History] Simvastatin [Zocor] 40 mg PO HS 07/09/15 [History] Albuterol Neb [Proventil Neb] 2.5 mg IH TID 07/04/16 [History] HYDROcodone/Acet 7.5/325 mg [[place] 7.5-325 mg] 1 tab PO Q3H PRN #240 tablet 11/12 [Rx] LORazepam [Lorazepam] 0.5 mg PO Q6H PRN 08/12/16 [History] Melatonin 10 mg PO HS 08/12/16 [History] Albuterol Sulfate [Proair Hfa] 2 puff IH Q4H PRN 10/20/16 [History] Ferrous Sulfate 325 mg PO DAILY 10/20/16 [History] Hydralazine HCl 50 mg PO TID 10/20/16 [History] Nitroglycerin [Nitrostat] 0.4 mg SL Q5M PRN 10/20/16 [History] Oxygen 3 l NS CONT 10/20/16 [History] Potassium Chloride [K-Tab ER] 20 meq PO DAILY 10/20/16 [History] Sertraline [Zoloft] 100 mg PO DAILY 10/20/16 [History] buPROPion HCl [Bupropion HCl Sr] 200 mg PO BID 10/20/16 [History] Furosemide [Lasix] 60 mg PO DAILY #30 tablet 10/23/16 [Rx] LORazepam [Ativan] 2 mg PO HS #10 10/23/16 [Rx] Allergies/Adverse Reactions: Allergies citalopram [From Celexa] Allergy (Verified 10/20/16 15:01) Abdominal Pain haloperidol [From Haldol] Allergy (Verified 10/20/16 15:01) Hallucinating amlodipine [From Norvasc] Adverse Reaction (Verified 10/20/16 15:01) Nausea risperidone Adverse Reaction (Verified 10/20/16 15:02) See Comments AMS roflumilast [From Daliresp] Adverse Reaction (Verified 10/20/16 15:01) Difficulty Breathing Procedures/tests Complete & Pending: Procedures Performed prior 72 hours Category Date Time Status ECG 12 lead ECG [ECG] Routine Y 10/21/16 10:28 Completed Date of admission: 10/21/16 13:13 Primary care physician: Jeff Castaneda MD Consults: 10/22/16 08:00 Consult to Wound Care [CONS] Routine Reason for Consult: Wound to Right lower extremity, appreciate eval and recommendation. Thank you. Call Completed: No Discharging clinician: Sorin Marte Anticipated date of discharge: 10/23/16 - Patient Status Disposition: Home Health Service Condition: Good Functional capacity at discharge: uses cane/walker Overall status at discharge: patient is progressing back to baseline - Discharge Instructions Instructions: Heart Failure (DC), Chronic Obstructive Pulmonary Disease (DC), Anemia (GEN) Follow Up With: Ibis Edwards MD [Partnered Physician] - Jeff Castaneda MD [Primary Care Provider] - Additional Instructions: Follow up with outpatient with wound care clinic. Increased home lasix from 40mg daily to 60mg daily, will check labs in 1 week to monitor kidney function. Limit salt and fluid intake. Follow up with PCP, Dr. Castaneda, in the next 1-2 weeks or sooner if needed. - Diet and Activity Activity: as per physical therapy Diet: low salt diet Interval History: Patient seen and examined, sitting on bedside reading. On 3L O2, which is baseline for home 2. Denies any acute denies. States BLE slightly better, agreeable to compression hosery. Hospital course: Ms. Khalil is a 81 year old female with PMHx of ischemic cardiomyopathy, chronic anemia, COPD, dementia that presents with lower extremity swelling and shortness of breath. Noted increasing BLE swelling over the last several weeks, which normally is minimal. She also reports worsening shortness of breath which is made worse by laying flat. She denied chest pain, fever, chills, cough, leg pain. Patient stated she did not watch her fluid intake or salt intake as well as she should. Patient fatigue gradually worsening. denied bleeding including hemoptysis, hematochezia, hematemesis, hematuria, epistaxis. Patient does report black stools however her stools have been black since she started taking iron and there is been no change recently. Patient sees hematology for chronic anemia and has had several bone marrow biopsies in the etiology of this is unknown. She has received blood transfusions approximately 4 times year. Hgb 6.7 upon admission and patient received 2 units of pRBC. No signs of active bleeding. Patient noted to have a couple episodes of shortness of breath while inpatient, though saturation remained good, he admits to history of anxiety and panic attacks; she noted these episodes similar to past attacks. Duonebs given and supplemental O2 in addition to IV lasix. Patient's BLE edema improving, shortness of breath resolved and using home level of supplemental oxygen. - Time Spent with Patient Total time spent providing and/or coordinating discharge services: Greater than 30 minutes (40mins) - Constitutional Vitals: Temp Pulse Resp BP Pulse Ox 98.4 F 73 16 133/59 95 10/23/16 07:50 10/23/16 07:50 10/23/16 07:50 10/23/16 07:50 10/23/16 07:50 General appearance: Present: cooperative, pleasant, no acute distress, answers questions appropriately - Head Head exam: Present: atraumatic, normocephalic - Eye Eye exam: Present: EOMI, conjuntiva pink - ENT ENT exam: Present: mucous membranes moist - Neck Neck exam general surgery: Present: full ROM - Respiratory Respiratory exam: Present: CTAB - Cardiovascular Cardiovascular exam: Present: RRR - GI/Abdominal GI/Abdominal exam: Present: soft. Absent: firm, guarding - Extremities Exam Extremities exam: Present: pedal edema (1+ BLE pitting edema). Absent: tenderness Additional comments: wound to lower extremity approx 1cm diameter - Neurological Exam Neurological exam: Present: alert, no focal deficits. Absent: facial droop, speech deficit - Psychiatric Psychiatric exam: Present: normal affect, normal mood - Skin Skin exam: Present: dry, normal color, warm. Absent: cyanosis, rash <Rosanna,Sorin P - Last Filed: 10/23/16 16:13> Date of Encounter: 10/23/16 Procedures/tests Complete & Pending: Procedures Performed prior 72 hours Category Date Time Status ECG 12 lead ECG [ECG] Routine Y 10/21/16 10:28 Completed Date of admission: 10/21/16 13:13 Primary care physician: Jeff Castaneda MD Consults: 10/22/16 08:00 Consult to Wound Care [CONS] Routine Reason for Consult: Wound to Right lower extremity, appreciate eval and recommendation. Thank you. Call Completed: No Hospital course: Ms. Khalil is a 81 year old female - Time Spent with Patient Total time spent providing and/or coordinating discharge services: - Constitutional Vitals: Temp Pulse Resp BP Pulse Ox 98.4 F 73 16 133/59 95 10/23/16 07:50 10/23/16 07:50 10/23/16 07:50 10/23/16 07:50 10/23/16 07:50 - Attending Attestation I examined this patient and my medical decision-making was reviewed with the FLAVOR ROOM WORKER/PA/Advanced Practice Nurse/Resident Physician. I agree with the documented findings, disposition and treatment plan as described except to the extent set forth below.
--- NOTE | 2016-10-23 13:03 | Physician Discharge Referral ---
<Dell Francis - Last Filed: 10/23/16 12:59> Home Health/Hosp Referral Info Transfer to: Home Health Provider in Charge Post Discharge: PCP - Diagnosis (1) Anemia Priority: Primary Status: Chronic (2) CHF (congestive heart failure) Priority: Secondary Status: Chronic (3) COPD (chronic obstructive pulmonary disease) Priority: Secondary Status: Chronic (4) Anxiety Priority: Secondary Status: Chronic (5) CAD (coronary artery disease) Priority: Secondary Status: Chronic (6) Dementia Priority: Secondary Status: Chronic (7) Hypertension Priority: Secondary Status: Chronic - Respiratory Orders Oxygen / L per min (3LPM) Smoking Cessation: Smoking cessation has been advised. For more information, call the [employer] Tobacco Quit Line at 0-715-TTYQ-NOW. - Dressing/Wound Care Site: Right LE, medial calf. Type of Dressing/Treatments w/Frequency: Patient to see wound clinic. - Diet/Nutrition Diet/Nutrition Orders: Cardiac Diet/Nutrition: List: Supplemental Protein shakes with meals. Low-sodium diet, limit fluids to <1.5L. - Activity Activity Orders: Walker - Services Needed Following services are medically necessary services: Nursing, Home Health Aide, Physical Therapy, Occupational Therapy Other Treatments: CBC, BMP to be complete in 1 week. - Transfer Medications Prescriptions: Furosemide [Lasix] 60 mg PO DAILY #30 tablet Home Medications: Budesonide/Formoterol 160/4.5 [Symbicort] 2 puff IH BID 02/20/15 [History] Clopidogrel [Plavix] 75 mg PO DAILY 02/20/15 [History] Tiotropium [Spiriva] 18 mcg IH DAILY 02/20/15 [History] Donepezil [Aricept] 10 mg PO HS 04/03/15 [History] Alendronate Sodium [Fosamax] 70 mg PO MO 07/09/15 [History] Ascorbate Calcium [Vitamin C] 500 mg PO DAILY 07/09/15 [History] Aspirin [Adult Low Dose Aspirin EC] 81 mg PO DAILY 07/09/15 [History] Calcium Carbonate/Vitamin D3 [Calcium 500-Vit D3 400 Tablet] 1 tab PO DAILY 04/13 [History] Isosorbide MONOnitrate (24 HR) [Imdur] 60 mg PO DAILY 07/09/15 [History] Losartan [Cozaar] 100 mg PO DAILY 07/09/15 [History] Metoprolol XL (24 HR) Succ [Toprol Xl] 25 mg PO DAILY 07/09/15 [History] Simvastatin [Zocor] 40 mg PO HS 07/09/15 [History] Albuterol Neb [Proventil Neb] 2.5 mg IH TID 07/04/16 [History] HYDROcodone/Acet 7.5/325 mg [[place] 7.5-325 mg] 1 tab PO Q3H PRN #240 tablet 11/12 [Rx] LORazepam [Lorazepam] 0.5 mg PO Q6H PRN 08/12/16 [History] Melatonin 10 mg PO HS 08/12/16 [History] Albuterol Sulfate [Proair Hfa] 2 puff IH Q4H PRN 10/20/16 [History] Ferrous Sulfate 325 mg PO DAILY 10/20/16 [History] Hydralazine HCl 50 mg PO TID 10/20/16 [History] Nitroglycerin [Nitrostat] 0.4 mg SL Q5M PRN 10/20/16 [History] Oxygen 3 l NS CONT 10/20/16 [History] Potassium Chloride [K-Tab ER] 20 meq PO DAILY 10/20/16 [History] Sertraline [Zoloft] 100 mg PO DAILY 10/20/16 [History] buPROPion HCl [Bupropion HCl Sr] 200 mg PO BID 10/20/16 [History] Furosemide [Lasix] 60 mg PO DAILY #30 tablet 10/23/16 [Rx] LORazepam [Ativan] 2 mg PO HS #10 10/23/16 [Rx] Allergies/Adverse Reactions: Allergies citalopram [From Celexa] Allergy (Verified 10/20/16 15:01) Abdominal Pain haloperidol [From Haldol] Allergy (Verified 10/20/16 15:01) Hallucinating amlodipine [From Norvasc] Adverse Reaction (Verified 10/20/16 15:01) Nausea risperidone Adverse Reaction (Verified 10/20/16 15:02) See Comments AMS roflumilast [From Daliresp] Adverse Reaction (Verified 10/20/16 15:01) Difficulty Breathing Certification: Further, I certify that my clinical findings support that this patient is homebound (i.e. absences from home require considerable and taxing effort and are for medical reasons or restorationism services or infrequently or short duration when for other reasons) because: Homebound Reason: Patient requires assistance of a person or device to safely leave home, Altered mental status requiring supervision when leaving home, Severity of cardiac or pulmonary status limits activity tolerance Attestation: My signature below is to certify that this patient is under my care and that I, or nurse practitioner, or a physician's fish hatchery assistant working with me, has a face-to -face encounter with this patient. <Sorin Marte P - Last Filed: 10/23/16 16:14> - Respiratory Orders Smoking Cessation: Smoking cessation has been advised. For more information, call the [place] Tobacco Quit Line at 5-728-EJAVNOW. Certification: Further, I certify that my clinical findings support that this patient is homebound (i.e. absences from home require considerable and taxing effort and are for medical reasons or restorationism services or infrequently or short duration when for other reasons) because: Attestation: My signature below is to certify that this patient is under my care and that I, or nurse practitioner, or a physician's fish hatchery assistant working with me, has a face-to -face encounter with this patient.
== END 2016-10-23 14:40 | disposition home health service (06) | DRG 811 ==
LOC: 2NENU 14:48 → EMEROO 14:48 → 2NENU 18:58
PROVIDERS: ADMIT Registered Nurse; ATTEND Internal Medicine

== ENCOUNTER 2016-11-07 18:37 | Inpatient (IN) ==
--- NOTE | 2016-11-07 20:05 | Emergency Department Note ---
Disposition Clinical Impression: GI bleed Disposition: Admitted As Inpatient Condition: Fair Forms: ED Satisfaction Letter General Adult HPI - General Chief complaint: ED Weakness Stated complaint: abd pain/weakness Time Seen by Provider: 11/07/16 19:50 Source: patient, family Limitations: no limitations - History of Present Illness HPI Narrative: This 81-year-old female brought in by family with abdominal pain and general weakness. She has a history of chronic anemia and etiology has not really been found. However this time they thought that she might actually have blood in her stool. It did look dark. The abdominal pain is not well localized. She has had some nausea. Pain Scale: 8 - Related Data Home Medications Medication Instructions Recorded Confirmed Budesonide/Formoterol 160/4.5 2 puff IH BID 02/20/15 11/04/16 [Symbicort] Clopidogrel [Plavix] 75 mg PO DAILY 02/20/15 11/04/16 Tiotropium [Spiriva] 18 mcg IH DAILY 02/20/15 11/04/16 Donepezil [Aricept] 10 mg PO HS 04/03/15 11/04/16 Alendronate Sodium [Fosamax] 70 mg PO MO 07/09/15 11/04/16 Ascorbate Calcium [Vitamin C] 500 mg PO DAILY 07/09/15 11/04/16 Aspirin [Adult Low Dose Aspirin EC] 81 mg PO DAILY 07/09/15 11/04/16 Calcium Carbonate/Vitamin D3 1 tab PO DAILY 07/09/15 11/04/16 [Calcium 500-Vit D3 400 Tablet] Isosorbide MONOnitrate (24 HR) 60 mg PO DAILY 07/09/15 11/04/16 [Imdur] Losartan [Cozaar] 100 mg PO DAILY 07/09/15 11/04/16 Metoprolol XL (24 HR) Succ [Toprol 25 mg PO DAILY 07/09/15 11/04/16 Xl] Simvastatin [Zocor] 40 mg PO HS 07/09/15 11/04/16 Albuterol Neb [Proventil Neb] 2.5 mg IH TID 07/04/16 11/04/16 LORazepam [Lorazepam] 0.5 mg PO Q6H PRN 08/12/16 11/04/16 Melatonin 10 mg PO HS 08/12/16 11/04/16 Albuterol Sulfate [Proair Hfa] 2 puff IH Q4H PRN 10/20/16 11/04/16 Ferrous Sulfate 325 mg PO DAILY 10/20/16 11/04/16 Hydralazine HCl 50 mg PO TID 10/20/16 11/04/16 Nitroglycerin [Nitrostat] 0.4 mg SL Q5M PRN 10/20/16 11/04/16 Oxygen 3 l NS CONT 10/20/16 11/04/16 Potassium Chloride [K-Tab ER] 20 meq PO DAILY 10/20/16 11/04/16 Sertraline [Zoloft] 100 mg PO DAILY 10/20/16 11/04/16 buPROPion HCl [Bupropion HCl Sr] 200 mg PO BID 10/20/16 11/04/16 Previous Rx's Medication Instructions Recorded HYDROcodone/Acet 7.5/325 mg [[place] 1 tab PO Q3H PRN #240 tablet 08/01/16 7.5-325 mg] Furosemide [Lasix] 60 mg PO DAILY #30 tablet 10/23/16 LORazepam [Ativan] 2 mg PO HS #10 10/23/16 Allergies Allergy/AdvReac Type Severity Reaction Status Date / Time citalopram [From Celexa] Allergy Abdominal Verified 10/20/16 15:01 Pain haloperidol [From Haldol] Allergy Hallucinati Verified 10/20/16 15:01 ng amlodipine [From Norvasc] AdvReac Nausea Verified 10/20/16 15:01 risperidone AdvReac See Verified 10/20/16 15:02 Comments roflumilast [From Daliresp] AdvReac Difficulty Verified 10/20/16 15:01 Breathing Constitutional: Reports: weakness. Denies: fever Cardiovascular: Denies: chest pain Respiratory: Denies: dyspnea Past Medical History - Past Medical History Attestation: Yes The following information was validated with the patient. Medical history: Reports: arthritis, CHF, COPD, coronary artery disease, dementia, GERD, hyperlipidemia, hypertension, myocardial infarction, osteoporosis, peripheral artery disease, renal disease, other Surgical history: Reports: cholecystectomy, hysterectomy, BHARATHI/BSO, other Psychiatric history: Reports: anxiety, depression - Social History Smoking Status: Former smoker Smokeless Tobacco Status: No Alcohol use: Reports: none Drug use: Reports: none Physical Exam Somewhat chronically ill-appearing - General Limitations: no limitations General appearance: alert - Head Head exam: atraumatic - Eye Eye exam: Present: PERRL, EOMI - ENT ENT exam: normal oropharynx, mucous membranes moist - Respiratory Respiratory exam: Present: normal lung sounds bilaterally - Cardiovascular Cardiovascular exam: Present: regular rate, normal rhythm - Rectal Exam [place] Protection Maintainer present during exam: Yes (nurse) Rectal exam: Present: heme (+) stool, black stool - Neurological Exam Neurological exam: Present: alert - Psychiatric Psychiatric exam: Present: normal affect - Skin Skin exam: Present: other (Pale-appearing) Course Course Narrative: She has evidence of what is likely an upper GI bleed with melanotic stool which is Hemoccult positive. Her hemoglobin is running in the sevens. Apparently is gone lower than that in the past and she has previously received blood transfusions. She is not quite yet of the transfusion range but it is close. We are starting her on a Protonix bolus and drip at the request of the hospitalist who is admitting this patient. CT abdomen and pelvis with no acute surgical findings. Vital Signs Temperature 98.3 F 11/07/16 19:08 Pulse Rate 83 11/07/16 19:08 Respiratory Rate 20 11/07/16 19:08 Blood Pressure 133/54 11/07/16 19:08 O2 Sat by Pulse Oximetry 81 11/07/16 19:08 Temperature 98.3 F 11/07/16 19:08 Pulse Rate 83 11/07/16 19:42 Respiratory Rate 20 11/07/16 19:42 Blood Pressure 133/54 11/07/16 19:42 O2 Sat by Pulse Oximetry 81 11/07/16 19:42 Oxygen Delivery Oxygen Delivery Room Air Medical Decision Making - Medical Records Medical records reviewed: Yes I reviewed the patient's medical records. - Lab Data Lab results reviewed: Yes I reviewed the patient's lab results. Result diagrams: 11/07/16 20:18 11/07/16 20:18 Lab Results 11/07/16 11/07/16 11/07/16 Range/Units 20:18 20:18 20:18 WBC 8.6 (4.3-11.1) K/mcL RBC 2.31 L (3.82-4.97) M/mcL Hgb 7.3 L (11.5-15.4) g/dL Hct 24.1 L (35.3-44.9) % MCV 104.3 H (83.0-100.0) fL MCH 31.6 (28.0-33.3) pg MCHC 30.3 L (31.6-35.5) g/dL RDW 15.9 H (11.5-14.5) % Plt Count 239 (140-400) K/mcL MPV 9.6 (9.4-12.4) fL Immature Gran % 0.6 (0-4) % Seg Neutrophils % 78.2 % Lymphocytes % 10.6 % Monocytes % 8.6 % Eosinophils % 1.5 % Basophils % 0.5 % Neutrophils # 6.8 (1.6-8.9) K/mcL Lymphocytes # 0.9 (0.6-4.6) K/mcL Monocytes # 0.7 (0.0-1.3) K/mcL Eosinophils # 0.1 (0.0-0.6) K/mcL Basophils # 0.0 (0.0-0.2) K/mcL PT 12.8 H (9.4-12.1) Seconds INR 1.2 Sodium 143 (136-145) mEq/L Potassium 3.5 (3.5-4.5) mEq/L Chloride 106 (98-109) mEq/L Carbon Dioxide 31 H (19-29) mEq/L BUN 21 H (7-20) mg/dL Creatinine 0.86 (0.57-1.11) mg/dL Est GFR ( Amer) > 60 (> 60) Est GFR (Non-Af Amer) > 60 (> 60) BUN/Creatinine Ratio 24 (6-26) Glucose 94 (70-99) mg/dL Calculated Osmolality 299 (280-300) Calcium 9.0 (8.6-10.8) mg/dL Total Bilirubin 0.8 (0.2-1.2) mg/dL Direct Bilirubin 0.4 (0.0-0.5) mg/dL Indirect Bilirubin 0.4 (0.0-1.2) mg/dL AST 16 (5-34) Units/L ALT 7 (0-55) Units/L Alkaline Phosphatase 68 (38-126) Units/L Troponin I (0-0.03) ng/mL Serum Total Protein 6.3 (6.0-8.3) g/dL Albumin 3.1 L (3.5-5.0) g/dL Globulin 3.2 (2.4-3.5) g/dL Albumin/Globulin Ratio 1.0 L (1.1-2.2) Lipase 20 (8-78) Units/L Urine Color (Yellow) Urine Clarity (Clear) Urine pH (5.0-8.0) pH Units Ur Specific [place] (1.010-1.025) Urine Protein (Neg-Trace) mg/dL Urine Glucose (UA) (Normal) mg/dL Urine Ketones (Negative) mg/dL Urine Blood (Negative) Urine Nitrite (Negative) Urine Bilirubin (Negative) Urine Urobilinogen (Normal) mg/dL Ur Leukocyte Esterase (Negative) Urine Microscopic RBC (0-3) per hpf Urine Microscopic WBC (0-3) per hpf Ur Squamous Epith Cells (None-Few) per lpf Urine Bacteria (None-Few) per hpf Hyaline Casts (None-Few) per lpf Ur Culture Indicated? (NO) 11/07/16 11/07/16 Range/Units 20:18 21:20 WBC (4.3-11.1) K/mcL RBC (3.82-4.97) M/mcL Hgb (11.5-15.4) g/dL Hct (35.3-44.9) % MCV (83.0-100.0) fL MCH (28.0-33.3) pg MCHC (31.6-35.5) g/dL RDW (11.5-14.5) % Plt Count (140-400) K/mcL MPV (9.4-12.4) fL Immature Gran % (0-4) % Seg Neutrophils % % Lymphocytes % % Monocytes % % Eosinophils % % Basophils % % Neutrophils # (1.6-8.9) K/mcL Lymphocytes # (0.6-4.6) K/mcL Monocytes # (0.0-1.3) K/mcL Eosinophils # (0.0-0.6) K/mcL Basophils # (0.0-0.2) K/mcL PT (9.4-12.1) Seconds INR Sodium (136-145) mEq/L Potassium (3.5-4.5) mEq/L Chloride (98-109) mEq/L Carbon Dioxide (19-29) mEq/L BUN (7-20) mg/dL Creatinine (0.57-1.11) mg/dL Est GFR ( Amer) (> 60) Est GFR (Non-Af Amer) (> 60) BUN/Creatinine Ratio (6-26) Glucose (70-99) mg/dL Calculated Osmolality (280-300) Calcium (8.6-10.8) mg/dL Total Bilirubin (0.2-1.2) mg/dL Direct Bilirubin (0.0-0.5) mg/dL Indirect Bilirubin (0.0-1.2) mg/dL AST (5-34) Units/L ALT (0-55) Units/L Alkaline Phosphatase (38-126) Units/L Troponin I 0.02 (0-0.03) ng/mL Serum Total Protein (6.0-8.3) g/dL Albumin (3.5-5.0) g/dL Globulin (2.4-3.5) g/dL Albumin/Globulin Ratio (1.1-2.2) Lipase (8-78) Units/L Urine Color Yellow (Yellow) Urine Clarity Cloudy A (Clear) Urine pH 7.0 (5.0-8.0) pH Units Ur Specific [place] 1.016 (1.010-1.025) Urine Protein Trace (Neg-Trace) mg/dL Urine Glucose (UA) Normal (Normal) mg/dL Urine Ketones Negative (Negative) mg/dL Urine Blood Negative (Negative) Urine Nitrite Negative (Negative) Urine Bilirubin Negative (Negative) Urine Urobilinogen Normal (Normal) mg/dL Ur Leukocyte Esterase Large H (Negative) Urine Microscopic RBC 0-3 (0-3) per hpf Urine Microscopic WBC 50-100 H (0-3) per hpf Ur Squamous Epith Cells Few (None-Few) per lpf Urine Bacteria Many H (None-Few) per hpf Hyaline Casts None Seen (None-Few) per lpf Ur Culture Indicated? YES A (NO) - Radiology Data Radiology results reviewed: Yes I reviewed the patient's radiology results. - EKG Data EKG #1 EKG attestation: Yes I reviewed and interpreted this EKG. EKG results narrative: EKG interpreted by me showing sinus rhythm at a rate of 72, QRS of 89, QTC of 352, axis of 59 with nonspecific changes. Critical Care Time Critical Care Time: No
[2016-11-07 20:29] LABS: Basophils % 0.5 %; Eosinophils # 0.1 K/mcL (0.0-0.6); Eosinophils % 1.5 %; Hematocrit 24.1 % (35.3-44.9); Immature Granulocytes % 0.6 % (0-4); Lymphocytes # 0.9 K/mcL (0.6-4.6); Lymphocytes % 10.6 %; Mean Corpuscular HGB Conc 30.3 g/dL (31.6-35.5); Mean Corpuscular Hemoglobin 31.6 pg (28.0-33.3); Mean Corpuscular Volume 104.3 fL (83.0-100.0); Mean Platelet Volume 9.6 fL (9.4-12.4); Monocytes # 0.7 K/mcL (0.0-1.3); Monocytes % 8.6 %; Neutrophils # 6.8 K/mcL (1.6-8.9); Platelet Count 239 K/mcL (140-400); Red Blood Count 2.31 M/mcL (3.82-4.97); Red Cell Distribution Width 15.9 % (11.5-14.5); Segmented Neutrophils % 78.2 %
[2016-11-07 20:37] LABS: INR 1.2; Prothrombin Time 12.8 Seconds (9.4-12.1)
[2016-11-07 20:41] LABS: Alanine Aminotransferase 7 Units/L (0-55); Albumin 3.1 g/dL (3.5-5.0); Alkaline Phosphatase 68 Units/L (38-126); Aspartate Amino Transferase 16 Units/L (5-34); BUN/Creatinine Ratio 24 (6-26); Bilirubin,Direct 0.4 mg/dL (0.0-0.5); Bilirubin,Indirect 0.4 mg/dL (0.0-1.2); Bilirubin,Total 0.8 mg/dL (0.2-1.2); Blood Urea Nitrogen 21 mg/dL (7-20); Carbon Dioxide 31 mEq/L (19-29); Chloride 106 mEq/L (98-109); Globulin 3.2 g/dL (2.4-3.5); Glucose 94 mg/dL (70-99); Lipase 20 Units/L (8-78); Osmolality,Calculated 299 (280-300); Potassium 3.5 mEq/L (3.5-4.5); Sodium 143 mEq/L (136-145); Total Protein 6.3 g/dL (6.0-8.3); eGFR For African Americans > 60 (> 60); eGFR For Non-African Americans > 60 (> 60)
[2016-11-07 20:44] LABS: Hemoglobin 7.3 g/dL (11.5-15.4)
[2016-11-07 21:29] LABS: Bilirubin,Urine Negative (Negative); Blood,Urine Negative (Negative); Clarity,Urine Cloudy (Clear); Color,Urine Yellow (Yellow); Glucose,Urine (UA) Normal (Normal); Ketones,Urine Negative (Negative); Leukocyte Esterase,Urine Large (Negative); Nitrite,Urine Negative (Negative); Protein,Urine Trace mg/dL (Neg-Trace); Specific Gravity,Urine 1.016 (1.010-1.025); Urobilinogen,Urine Normal (Normal)
[2016-11-07 21:30] LABS: Bacteria,Urine Many per hpf (None-Few); Hyaline Casts,Urine None Seen per lpf (None-Few); RBC,Urine 0-3 per hpf (0-3); Squamous Epithelial Cell,Urine Few per lpf (None-Few); WBC,Urine 50-100 per hpf (0-3)
[2016-11-07] MEDS ORDERED: Pantoprazole 80 MG in 0.9 % Sodium Chloride 50 ML IVPB ONE (22:23)
[2016-11-07] MEDS ORDERED: *HR* LORazepam 0.5 MG TABLET PO PRN (23:41)
[2016-11-07] MEDS ORDERED: Nitroglycerin 0.4 MG TAB.SUBL SL PRN (23:41)
[2016-11-07] MEDS ORDERED: (Alendronate Sodium [Fosamax] 70 MG) PO SCH (23:45)
[2016-11-07] MEDS ORDERED: Naloxone 0.4 MG/ML INJ IVP PRN (23:55)
--- NOTE | 2016-11-08 00:05 | Internal Med History&Physical ---
Date of Encounter: 11/08/16 Time of Encounter: 23:00 Assessment and Plan (1) Abdominal pain Current visit: Yes Status: Acute CT scan negative for any acute abnormality to explain patient's abdominal pain. I suspect this is related to her urinary tract infection. er last urine culture grew Proteus mirabilissensitive to Rocephin. Thus, will initiate Rocephin pending speciation of urine culture. however, given patient's complaints of epigastric burning and continued melanotic stools, will consult Surgery as patient's family refuses to see GI team for whatever reason. See management for melanotic stools, below. For pain control, will continue her home dose of [place]. Qualifiers: Abdominal location: generalized Qualified Code(s): R10.84 - Generalized abdominal pain (2) Melanotic stools Current visit: Yes Status: Acute per family, melanotic stools has been going on for a long time. However, they feel that the stool looks "worse" and they are requesting a repeat workup ( i.e.EGD and/or colonoscopy) despite having a negative workup in the past. Additionally, they refused to seeGI specialist here at [place], and specifically requested Dr. Kim or Sean. Daytime Hospitalist to contact whomever is in house tomorrow. I have ordered Protonix 80 mg every 12 hours,but I have continued a clear diet as it is unclear if she will undergo further testing at this time. It should be noted that her hemoglobin is stable at 7.3 g, but she has received over 4 packed red blood cell transfusions in the last 2 weeks. Given the infrequency of her bowel movements, I will not order hemoglobins at this time. (3) UTI (urinary tract infection) Current visit: Yes Status: Acute treatment with Rocephin as per above. Qualifiers: Urinary tract infection type: acute cystitis Hematuria presence: without hematuria Qualified Code(s): N30.00 - Acute cystitis without hematuria (4) CAD (coronary artery disease) Current visit: Yes Status: Acute Patient had a heart catheterization in January 2016, and it does not appear that she had any stents placed at that time. thus, in light of the concern is a possible GI bleed,will hold Plavix and aspirin at time. This will need to be resumed at the daytime Hospitalist's discretion when clinically appropriate. Qualifiers: Coronary Disease-Associated Artery/Lesion type: [place] artery [place] vs. transplanted heart: [place] heart Associated angina: without angina Qualified Code(s): I25.10 - Atherosclerotic heart disease of [place] coronary artery without angina pectoris (5) Anemia Current visit: No Status: Chronic history of MGUS and iron deficiency anemia. Hb is 7.3 as mentioned above (stable ). She has required four blood transfusions in the past 2 weeks and thus will need to be closely monitored. Type and screen ordered for the morning. Qualifiers: Anemia type: unspecified type Qualified Code(s): D64.9 - Anemia, unspecified Internal Medicine - H&P: HPI Chief complaint: abdominal pain Admitted From: Home Plans for Post Hospital Care: Home History of present illness: Ms. Khalil is a 81 year old female with PMH ischemic cardiomyopathy, chronic anemia requiring multiple blood transfusions, anxiety chronic pain, dementia, CAD status post NSTEMI in 2017 who resents with abdominal pain and family's concern for black tarry stools. Patient has had multiple admissions in the recent past for complicated UTI, several episodes of pneumonia, NSTEMI, has been in and out of the assisted and is now living at home. she is surrounded by 3 family members at bedside who provided the majority of the information. The patient has been complaining of cramping and burning abdominal pain for the last few days. Has not been able to eat as she feels nauseated whenever doing so. Has not actually vomited much (just "foamy stuff"). Appetite is poor. The family is concerned about her bowel movements; she has a BM every 2 -3 days and has explosive black stool which is preceded by abdominal cramping. ED physician stated hemoccult was positive. Family wants her to undergo an EGD/ Colonoscopy despite having a negative GI workup in the past. The patient herself is a poor historian due to her history of demetia, but tells me that she feels her stomach "ball up" and that it often lopez and feels like her stomach is "not there." she repeats several times that she needs her anxiety medicine, her pain medication and jello. Past Med Surg Social Fam HX - Past Medical History Source: patient, old records reviewed, obtained from family Medical history: arthritis, CHF, COPD, coronary artery disease, dementia, GERD, hyperlipidemia, hypertension, myocardial infarction, osteoporosis, peripheral artery disease, renal disease, other Psychiatric history: anxiety, depression - Past Surgical History Surgical History: cholecystectomy, hysterectomy, BHARATHI/BSO, other - Social History Smoking Status: Former smoker Smokeless Tobacco Status: No Alcohol use: none Drug use: none - Family History Father Living Status: Hx Family Cardiac Disorders: Yes Hx Family Cancer: Yes (RCC) Mother Living Status: Hx Family Cardiac Disorders: Yes Hx Family Cancer: Yes (bladder cancer) Internal Medicine - H&P: Meds Budesonide/Formoterol 160/4.5 [Symbicort] 2 puff IH BID 02/20/15 [History] Clopidogrel [Plavix] 75 mg PO DAILY 02/20/15 [History] Tiotropium [Spiriva] 18 mcg IH DAILY 02/20/15 [History] Donepezil [Aricept] 10 mg PO HS 04/03/15 [History] Alendronate Sodium [Fosamax] 70 mg PO MO 07/09/15 [History] Ascorbate Calcium [Vitamin C] 500 mg PO DAILY 07/09/15 [History] Aspirin [Adult Low Dose Aspirin EC] 81 mg PO DAILY 07/09/15 [History] Calcium Carbonate/Vitamin D3 [Calcium 500-Vit D3 400 Tablet] 1 tab PO DAILY 04/13 [History] Isosorbide MONOnitrate (24 HR) [Imdur] 60 mg PO DAILY 07/09/15 [History] Losartan [Cozaar] 100 mg PO DAILY 07/09/15 [History] Metoprolol XL (24 HR) Succ [Toprol Xl] 25 mg PO DAILY 07/09/15 [History] Simvastatin [Zocor] 40 mg PO HS 07/09/15 [History] Albuterol Neb [Proventil Neb] 2.5 mg IH TID 07/04/16 [History] HYDROcodone/Acet 7.5/325 mg [[place] 7.5-325 mg] 1 tab PO Q3H PRN #240 tablet 11/12 [Rx] LORazepam [Lorazepam] 0.5 mg PO Q6H PRN 08/12/16 [History] Melatonin 10 mg PO HS 08/12/16 [History] Albuterol Sulfate [Proair Hfa] 2 puff IH Q4H PRN 10/20/16 [History] Ferrous Sulfate 325 mg PO DAILY 10/20/16 [History] Hydralazine HCl 50 mg PO TID 10/20/16 [History] Nitroglycerin [Nitrostat] 0.4 mg SL Q5M PRN 10/20/16 [History] Oxygen 3 l NS CONT 10/20/16 [History] Potassium Chloride [K-Tab ER] 20 meq PO DAILY 10/20/16 [History] Sertraline [Zoloft] 100 mg PO DAILY 10/20/16 [History] buPROPion HCl [Bupropion HCl Sr] 200 mg PO BID 10/20/16 [History] Furosemide [Lasix] 60 mg PO DAILY #30 tablet 10/23/16 [Rx] LORazepam [Ativan] 2 mg PO HS #10 10/23/16 [Rx] Allergies citalopram [From Celexa] Allergy (Verified 10/20/16 15:01) Abdominal Pain haloperidol [From Haldol] Allergy (Verified 10/20/16 15:01) Hallucinating amlodipine [From Norvasc] Adverse Reaction (Verified 10/20/16 15:01) Nausea risperidone Adverse Reaction (Verified 10/20/16 15:02) See Comments AMS roflumilast [From Daliresp] Adverse Reaction (Verified 10/20/16 15:01) Difficulty Breathing ROS unobtainable: due to mental status All Systems PM: A 10-system review of systems was performed and is negative for pertinent findings except as documented above in the HPI. - Constitutional Vitals: Temp Pulse Resp BP Pulse Ox 98.3 F 79 16 155/72 6 11/07/16 19:08 11/07/16 23:39 11/07/16 23:39 11/07/16 23:39 11/07/16 23:39 General appearance: Present: A&O X 2, pleasant, no acute distress Exam: is anxious and keeps repeating "my stomach hurts and I'm hungry" - Head Head exam: Present: atraumatic - Eye Eye exam: Present: EOMI - Respiratory Additional comments: diminished breath sounds LLL - Cardiovascular Cardiovascular exam: Present: RRR, +S1, +S2 - GI/Abdominal GI/Abdominal exam: Present: hypoactive bowel sounds, soft, no peritoneal signs. Absent: tenderness Additional comments: reducible umbilical hernia - Extremities Exam Additional comments: 2+ pitting edema-improved per family - Neurological Exam Neurological exam: Present: alert. Absent: speech deficit - Psychiatric Psychiatric exam: Present: anxious Internal Med - H&P Results - Labs CBC & Chem 7: 11/08/16 00:10 11/07/16 20:18 Labs: Short CBC 11/07/16 Range/Units 20:18 WBC 8.6 (4.3-11.1) K/mcL Hgb 7.3 L (11.5-15.4) g/dL Hct 24.1 L (35.3-44.9) % Plt Count 239 (140-400) K/mcL Neutrophils # 6.8 (1.6-8.9) K/mcL BMP 11/07/16 20:18 Sodium 143 Potassium 3.5 Chloride 106 Carbon Dioxide 31 H BUN 21 H Creatinine 0.86 Glucose 94 Calcium 9.0 Cardiac Enzymes 11/07/16 Range/Units 20:18 Troponin I 0.02 (0-0.03) ng/mL Liver Function 11/07/16 Range/Units 20:18 Total Bilirubin 0.8 (0.2-1.2) mg/dL Direct Bilirubin 0.4 (0.0-0.5) mg/dL AST 16 (5-34) Units/L ALT 7 (0-55) Units/L Alkaline Phosphatase 68 (38-126) Units/L Albumin 3.1 L (3.5-5.0) g/dL Urine 11/07/16 Range/Units 21:20 Urine Color Yellow (Yellow) Urine Clarity Cloudy A (Clear) Urine pH 7.0 (5.0-8.0) pH Units Ur Specific [place] 1.016 (1.010-1.025) Urine Protein Trace (Neg-Trace) mg/dL Urine Glucose (UA) Normal (Normal) mg/dL - Impressions ITS Impressions Abdomen/Pelvis CT 11/07/16 19:58 IMPRESSION: 1. Uncomplicated fat containing periumbilical hernia. 2. Mild right pleural effusion and right lower lobe atelectatic changes. 3. No acute bowel abnormality. Diverticulosis but no acute diverticulitis. D/ / 11/07/2016 22:37:59 Clementina Fontaine MD / bcarter Interpreting Provider: Clementina Fontaine MD
[2016-11-08 00:17] LABS: Basophils % 0.4 %; Eosinophils # 0.2 K/mcL (0.0-0.6); Eosinophils % 2.4 %; Hematocrit 21.4 % (35.3-44.9); Immature Granulocytes % 0.5 % (0-4); Lymphocytes # 0.8 K/mcL (0.6-4.6); Lymphocytes % 10.4 %; Mean Corpuscular HGB Conc 30.8 g/dL (31.6-35.5); Mean Corpuscular Hemoglobin 31.6 pg (28.0-33.3); Mean Corpuscular Volume 102.4 fL (83.0-100.0); Monocytes # 0.7 K/mcL (0.0-1.3); Monocytes % 8.6 %; Neutrophils # 5.9 K/mcL (1.6-8.9); Platelet Count 218 K/mcL (140-400); Red Blood Count 2.09 M/mcL (3.82-4.97); Red Cell Distribution Width 15.8 % (11.5-14.5); Segmented Neutrophils % 77.7 %
[2016-11-08 00:22] LABS: Hemoglobin 6.6 g/dL (11.5-15.4)
[2016-11-08 00:32] LABS: Albumin 2.9 g/dL (3.5-5.0); Alkaline Phosphatase 60 Units/L (38-126); Aspartate Amino Transferase 16 Units/L (5-34); BUN/Creatinine Ratio 24 (6-26); Bilirubin,Total 0.6 mg/dL (0.2-1.2); Blood Urea Nitrogen 20 mg/dL (7-20); Calcium 8.4 mg/dL (8.6-10.8); Carbon Dioxide 28 mEq/L (19-29); Chloride 104 mEq/L (98-109); Globulin 2.9 g/dL (2.4-3.5); Glucose 86 mg/dL (70-99); Osmolality,Calculated 292 (280-300); Potassium 3.5 mEq/L (3.5-4.5); Sodium 140 mEq/L (136-145); Total Protein 5.8 g/dL (6.0-8.3); eGFR For African Americans > 60 (> 60); eGFR For Non-African Americans > 60 (> 60)
[2016-11-08 00:37] LABS: Alanine Aminotransferase < 6 Units/L (0-55)
[2016-11-08] MEDS: *HR* HYDROcodone/Acet 7.5/325 mg TABLET PO PRN ×3 (02:14→23:32)
[2016-11-08] MEDS: *HR* LORazepam 1 MG TABLET PO SCH ×4 (02:14→23:32)
[2016-11-08] MEDS: Pantoprazole 40 MG in 0.9 % Sodium Chloride Mini Bag 100 ML IVC SCH ×5 (02:15→22:21)
[2016-11-08] MEDS: Albuterol 2.5 MG/3 ML NEBULIZER IH SCH ×4 (04:29→23:18)
[2016-11-08] MEDS ORDERED: 0.9 % Sodium Chloride 250 ML ONE ×2 (06:41→13:35)
[2016-11-08] MEDS ORDERED: Pantoprazole 80 MG in 0.9 % Sodium Chloride 50 ML IVPB SCH (08:00)
[2016-11-08] MEDS: Tiotropium 18 MCG inhalation IH SCH (08:02)
[2016-11-08] MEDS: BuPROPion SR (12 HR) 100 MG TABLET PO SCH ×2 (10:39→20:54)
[2016-11-08] MEDS: Ascorbic Acid 500 MG TABLET PO SCH (10:39)
[2016-11-08] MEDS: Metoprolol XL (24 HR) Succ 25 MG TAB.ER.24H PO SCH (10:39)
[2016-11-08] MEDS: Isosorbide MONOnitrate (24 HR) 60 MG TAB.ER.24H PO SCH (10:39)
[2016-11-08] MEDS: Furosemide 40 MG TABLET PO SCH (10:39)
[2016-11-08] MEDS: Budesonide/Formoterol 160/4.5 MDI IH SCH ×2 (11:10→19:27)
--- NOTE | 2016-11-08 11:28 | Electrocardiograph Report ---
[place] [id number] Test Date: 2016-11-07 Pat Name: Mayra Khalil Department: 105 Room: 3A Gender: F Database Administration Manager: EKP : [id number] Requested By: Maury Alcantara Order Number: [id number] Reading MD: Nina Torres Measurements Intervals [place] Rate: 72 P: 65 IN: 144 QRS: 59 QRSD: 89 T: 86 QT: 327 QTc: 352 Interpretive Statements SINUS RHYTHM NONSPECIFIC ST \T\ T-WAVE ABNORMALITY Electronically Signed On 11-08-2016 11:26:47 EDT by Nina Torres
[2016-11-08] MEDS ORDERED: Furosemide 20 MG/2 ML VIAL IVP ONE (12:06)
--- NOTE | 2016-11-08 15:41 | General Surgery Consult Note ---
<Nina Will - Last Filed: 11/08/16 15:44> Date of Encounter: 11/08/16 Time of Encounter: 15:15 Assessment and Plan (1) Melanotic stools Current Visit: Yes Status: Acute Nothing by mouth until EGD complete IV fluids Supportive care Plan for EGD to be complete in the next [address] Ngo The risks, benefits, alternatives and expected outcomes have been reviewed with the patient she is in agreement to proceed PPI therapy Monitor hemoglobin and transfuse as necessary per hospitalist (2) Acute blood loss anemia Current Visit: No Status: Acute Monitor hgb/hct Transfuse as necessary per the hospitalist EGD to be complete and the next [address] Ngo History of Present Illness Consult date: 11/08/16 Reason for consult: other (melena; anemia) Requesting physician: Mayra Sanon History of present illness: Ms. Khalil is a very pleasant 81-year-old female who presented to the hospital with complaints of melena and cramping abdominal pain. She states that she began having crampy abdominal pain approximately 2 weeks ago and is progressively worsening. She reports loose tarry stools over the last few days. Her daughter is at the bedside and is providing some of the history. She states that the patient typically has dark stools due to her iron supplementation however there has been a definite microsoft exchange architect the last few days. She states that she typically moves her bowels every 2-3 days. Over the last few days she is having multiple loose, tarry stools. The patient states that she has been unable to eat and her appetite has changed. She states that she does feel hungry however when she tries to eat her appetite is gone. She states that when she tries to swallow it feels like her food is getting stuck. She states that this includes TYPES of foods including mashed potatoes. She denies any heartburn symptoms. She admits to nausea but denies any vomiting. Denies any chest pain, shortness of breath, dizziness. Her daughter states that the patient is followed by Dr. Richards with hematology for her chronic anemia. She had an EGD complete 06/2015. Her last colonoscopy was completed 06/[address] Kim and there were no significant findings. Her daughter also reports that she typically receives blood transfusions per year however she is received 6 blood transfusions in the last 2 weeks. Past Med Surg Social Fam HX - Past Medical History Source: patient Medical history: arthritis, CHF, COPD, coronary artery disease, dementia, GERD, hyperlipidemia, hypertension, myocardial infarction, osteoporosis, peripheral artery disease, renal disease, other Psychiatric history: anxiety, depression - Past Surgical History Surgical History: cholecystectomy, hysterectomy, orthopedic, other (wrist), BHARATHI/ BSO, other (EGD 06/2015; colonoscopy 06/2015) - Social History Smoking Status: Former smoker Smokeless Tobacco Status: No Alcohol use: none Drug use: none - Family History Father Living Status: Hx Family Cardiac Disorders: Yes Hx Family Cancer: Yes (RCC) Mother Living Status: Hx Family Cardiac Disorders: Yes Hx Family Cancer: Yes (bladder cancer) Medications and Allergies Budesonide/Formoterol 160/4.5 [Symbicort] 2 puff IH BID 02/20/15 [History] Clopidogrel [Plavix] 75 mg PO DAILY 02/20/15 [History] Tiotropium [Spiriva] 18 mcg IH DAILY 02/20/15 [History] Donepezil [Aricept] 10 mg PO HS 04/03/15 [History] Alendronate Sodium [Fosamax] 70 mg PO MO 07/09/15 [History] Ascorbate Calcium [Vitamin C] 500 mg PO DAILY 07/09/15 [History] Aspirin [Adult Low Dose Aspirin EC] 81 mg PO DAILY 07/09/15 [History] Calcium Carbonate/Vitamin D3 [Calcium 500-Vit D3 400 Tablet] 1 tab PO DAILY 04/13 [History] Isosorbide MONOnitrate (24 HR) [Imdur] 60 mg PO DAILY 07/09/15 [History] Losartan [Cozaar] 100 mg PO DAILY 07/09/15 [History] Metoprolol XL (24 HR) Succ [Toprol Xl] 25 mg PO DAILY 07/09/15 [History] Simvastatin [Zocor] 40 mg PO HS 07/09/15 [History] Albuterol Neb [Proventil Neb] 2.5 mg IH TID 07/04/16 [History] HYDROcodone/Acet 7.5/325 mg [[place] 7.5-325 mg] 1 tab PO Q3H PRN #240 tablet 11/12 [Rx] LORazepam [Lorazepam] 0.5 mg PO Q6H PRN 08/12/16 [History] Melatonin 10 mg PO HS 08/12/16 [History] Albuterol Sulfate [Proair Hfa] 2 puff IH Q4H PRN 10/20/16 [History] Ferrous Sulfate 325 mg PO DAILY 10/20/16 [History] Hydralazine HCl 50 mg PO TID 10/20/16 [History] Nitroglycerin [Nitrostat] 0.4 mg SL Q5M PRN 10/20/16 [History] Oxygen 3 l NS CONT 10/20/16 [History] Potassium Chloride [K-Tab ER] 20 meq PO DAILY 10/20/16 [History] Sertraline [Zoloft] 100 mg PO DAILY 10/20/16 [History] buPROPion HCl [Bupropion HCl Sr] 200 mg PO BID 10/20/16 [History] Furosemide [Lasix] 60 mg PO DAILY #30 tablet 10/23/16 [Rx] LORazepam [Ativan] 2 mg PO HS #10 10/23/16 [Rx] Allergies citalopram [From Celexa] Allergy (Verified 10/20/16 15:01) Abdominal Pain haloperidol [From Haldol] Allergy (Verified 10/20/16 15:01) Hallucinating amlodipine [From Norvasc] Adverse Reaction (Verified 10/20/16 15:01) Nausea risperidone Adverse Reaction (Verified 10/20/16 15:02) See Comments AMS roflumilast [From Daliresp] Adverse Reaction (Verified 10/20/16 15:01) Difficulty Breathing Review of Systems All systems PM: reviewed and no additional remarkable complaints except as stated (in the HPI) All systems PM: A 10-system review of systems was performed and is negative for pertinent findings except as documented above in the HPI. General Surgery Exam Initial Vital Signs Temp Pulse Resp BP Pulse Ox 98.3 F 83 20 133/54 81 11/07/16 19:08 11/07/16 19:08 11/07/16 19:08 11/07/16 19:08 11/07/16 19:08 - General physical appearance well developed, well nourished, no distress - Eyes normal ocular movement - ENT normal mucosa, atraumatic, normocephalic - Neck trachea midline - Respiratory normal respiratory effort, clear to auscultation, other (diminished bibasilar bases) - Cardiovascular Cardiovascular exam: Present: RRR - Abdomen Abdomen general surgery: Present: bowel sounds present, soft, non tender Hernia: Present: incarcerated, umbilical - Integumentary Integumentary general surgery: Present: warm and dry - Neurologic Present: CN 2-12 grossly intact - Psychiatric Psychiatric general surgery: Present: appropriate, oriented to person, oriented to place, oriented to time, speech is normal, memory intact Exam Initial Vital Signs Temp Pulse Resp BP Pulse Ox 98.3 F 83 20 133/54 81 11/07/16 19:08 11/07/16 19:08 11/07/16 19:08 11/07/16 19:08 11/07/16 19:08 Results - Labs 11/08/16 00:10 11/08/16 00:10 Abnormal lab results RBC 2.09 M/mcL (3.82-4.97) L 11/08/16 00:10 Hgb 6.6 g/dL (11.5-15.4) L 11/08/16 00:10 Hct 21.4 % (35.3-44.9) L 11/08/16 00:10 MCV 102.4 fL (83.0-100.0) H 11/08/16 00:10 MCHC 30.8 g/dL (31.6-35.5) L 11/08/16 00:10 RDW 15.8 % (11.5-14.5) H 11/08/16 00:10 MPV 9.0 fL (9.4-12.4) L 11/08/16 00:10 PT 12.8 Seconds (9.4-12.1) H 11/07/16 20:18 POC Glucose 91 (58-89) H 11/08/16 11:35 Calcium 8.4 mg/dL (8.6-10.8) L 11/08/16 00:10 Serum Total Protein 5.8 g/dL (6.0-8.3) L 11/08/16 00:10 Albumin 2.9 g/dL (3.5-5.0) L 11/08/16 00:10 Albumin/Globulin Ratio 1.0 (1.1-2.2) L 11/08/16 00:10 Urine Clarity Cloudy (Clear) A 11/07/16 21:20 Ur Leukocyte Esterase Large (Negative) H 11/07/16 21:20 Urine Microscopic WBC 50-100 per hpf (0-3) H 11/07/16 21:20 Urine Bacteria Many per hpf (None-Few) H 11/07/16 21:20 Ur Culture Indicated? YES (NO) A 11/07/16 21:20 All other labs normal. Consult Discharge Plan - Plan Referrals: Jeff Castaneda MD [Primary Care Provider] - - Attending Attestation I examined this patient and my medical decision-making was reviewed with the WEATHERSTRIP MACHINE OPERATOR/PA/Advanced Practice Nurse/Resident Physician. I agree with the documented findings, disposition and treatment plan as described except to the extent set forth below. <Servando Ngo M - Last Filed: 11/09/16 02:27> Date of Encounter: 11/09/16 Review of Systems All systems PM: A 10-system review of systems was performed and is negative for pertinent findings except as documented above in the HPI. General Surgery Exam Initial Vital Signs Temp Pulse Resp BP Pulse Ox 98.3 F 83 20 133/54 81 11/07/16 19:08 11/07/16 19:08 11/07/16 19:08 11/07/16 19:08 11/07/16 19:08 Exam Initial Vital Signs Temp Pulse Resp BP Pulse Ox 98.3 F 83 20 133/54 81 11/07/16 19:08 11/07/16 19:08 11/07/16 19:08 11/07/16 19:08 11/07/16 19:08 Results - Labs 11/08/16 00:10 11/08/16 00:10 Abnormal lab results RBC 2.09 M/mcL (3.82-4.97) L 11/08/16 00:10 Hgb 6.6 g/dL (11.5-15.4) L 11/08/16 00:10 Hct 21.4 % (35.3-44.9) L 11/08/16 00:10 MCV 102.4 fL (83.0-100.0) H 11/08/16 00:10 MCHC 30.8 g/dL (31.6-35.5) L 11/08/16 00:10 RDW 15.8 % (11.5-14.5) H 11/08/16 00:10 MPV 9.0 fL (9.4-12.4) L 11/08/16 00:10 PT 12.8 Seconds (9.4-12.1) H 11/07/16 20:18 Calcium 8.4 mg/dL (8.6-10.8) L 11/08/16 00:10 Serum Total Protein 5.8 g/dL (6.0-8.3) L 11/08/16 00:10 Albumin 2.9 g/dL (3.5-5.0) L 11/08/16 00:10 Albumin/Globulin Ratio 1.0 (1.1-2.2) L 11/08/16 00:10 Urine Clarity Cloudy (Clear) A 11/07/16 21:20 Ur Leukocyte Esterase Large (Negative) H 11/07/16 21:20 Urine Microscopic WBC 50-100 per hpf (0-3) H 11/07/16 21:20 Urine Bacteria Many per hpf (None-Few) H 11/07/16 21:20 Ur Culture Indicated? YES (NO) A 11/07/16 21:20 All other labs normal. - Attending Attestation I reviewed the above assessment and examination with a nurse practitioner present. Patient is been having a 2 week history of abdominal pain with worsening symptoms over the past 2 weeks. She has been having dark colored stool but has been taking iron supplementation. Over the same time. She has noticed worsening or different tarry type of stool symptoms. No nausea or vomiting. Mild tenderness to palpation generalized on examination. Noted anemia but apparent megaloblastic in nature. Given her pain symptoms and change in bowel movements with heme positive stools noted I think it would be appropriate at this time to proceed with an EGD (patient had an EGD and colonoscopy in June 2015). Discussed with the patient and family and they agree to the above plan.
[2016-11-08] MEDS ORDERED: *HR* Midazolam HCl 5 MG/5 ML VIAL IVP ONE ×2 (17:19→17:51)
[2016-11-08] MEDS ORDERED: *HR* FentaNYL (PF) 100 MCG/2 ML VIAL ONE (17:20)
--- NOTE | 2016-11-08 17:27 | Oncology Inp Consult Note ---
Date of Encounter: 11/09/16 Time of Encounter: 17:00 Assessment and Plan (1) Anemia, chronic disease Status: Chronic Assessment and plan: -Patient with hx anemia, Status post prior transfusion and IV iron in the past for low ferritin, s/p Bone marrow procedure --twice in bone marrow bx 08/11 that did not show any evidence of MDS and flow, cytogenetics were nl and rpt in May 2016 no bone marrow pathology -s/p endoscopy/colonoscopy- colonoscopy report no bleeding/abnormalities. ANemia multifactorial--Due to pia--EGD done-wo active bleed with erythema, bx pending Rec UTI gm neg rods-abx. Transfuse to keep Hgb >8gm Rpt iron profile feriitin 110--IV iron to be considered. Will discuss with patient today Hx COPD/SOB on O2 Lung imaging showing incr nodules--were discussed in tumor board conference. She will be scheduled to see rad onc ROXANN to be considered, held due to hx fall/fracture and immobilization due to risk of clotting. She is on Plavix or fpc records. 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 Small IgG spike MGUS, s/p BM bx no MDS, no stainable iron. s/p injectafer 09/11 She also has medical history significant for anemia, ferritin was in the 20s in the past, history of chronic kidney disease, which has recently worsened, COPD, hearing loss, heart disease, congestive heart failure, hypertension, hyperlipidemia, anxiety and depression, who has noticed worsening shortness of breath and weakness as well as some difficulty walking due to dizziness. Due to anemia--received multiple PRBC and iron infusions in the past. She has had a colonoscopy 2009 (and ). She was hospitalized also with mild CHF exacerbation/shortness of breath due to anemia back in October of 2014, and since then, the decline in hemoglobin. Hospitalized due to concern of left lower wound/swelling Hx SOB on O2 with COPD Patient had a bone marrow aspiration and biopsy 06/24/2016 that showed a slight increase in plasma cells without any other abnormality, hypercellulatr marrow 02/11 Hospitalized for NSTEMI and ac CHF on medical management s/p cath Ct imaging during hospitalization previosuly showed lung nodules that have incresaed in recent imaging --left lung apex upto 1.8x1.2cm and rt ML upto 2x1.4cm She has episodes of pia for which she is underwent [id number] without bleed --> Ct abd did not show ac findings UA/UC gm neg rods Past Med Surg Social Fam HX - Past Medical History Medical history: arthritis, CHF, COPD, coronary artery disease, dementia, GERD, hyperlipidemia, hypertension, myocardial infarction, osteoporosis, peripheral artery disease, renal disease, other Psychiatric history: anxiety, depression - Past Surgical History Surgical History: cholecystectomy, hysterectomy, orthopedic, other (wrist), BHARATHI/ BSO, other (EGD 06/2015; colonoscopy 06/2015) - Social History Smoking Status: Former smoker Smokeless Tobacco Status: No Alcohol use: none Drug use: none - Family History Father Living Status: Hx Family Cardiac Disorders: Yes Hx Family Cancer: Yes (RCC) Mother Living Status: Hx Family Cardiac Disorders: Yes Hx Family Cancer: Yes (bladder cancer) Medications and Allergies Budesonide/Formoterol 160/4.5 [Symbicort] 2 puff IH BID 02/20/15 [History] Clopidogrel [Plavix] 75 mg PO DAILY 02/20/15 [History] Tiotropium [Spiriva] 18 mcg IH DAILY 02/20/15 [History] Donepezil [Aricept] 10 mg PO HS 04/03/15 [History] Alendronate Sodium [Fosamax] 70 mg PO MO 07/09/15 [History] Ascorbate Calcium [Vitamin C] 500 mg PO DAILY 07/09/15 [History] Aspirin [Adult Low Dose Aspirin EC] 81 mg PO DAILY 07/09/15 [History] Calcium Carbonate/Vitamin D3 [Calcium 500-Vit D3 400 Tablet] 1 tab PO DAILY 04/13 [History] Isosorbide MONOnitrate (24 HR) [Imdur] 60 mg PO DAILY 07/09/15 [History] Losartan [Cozaar] 100 mg PO DAILY 07/09/15 [History] Metoprolol XL (24 HR) Succ [Toprol Xl] 25 mg PO DAILY 07/09/15 [History] Simvastatin [Zocor] 40 mg PO HS 07/09/15 [History] Albuterol Neb [Proventil Neb] 2.5 mg IH TID 07/04/16 [History] HYDROcodone/Acet 7.5/325 mg [[place] 7.5-325 mg] 1 tab PO Q3H PRN #240 tablet 11/12 [Rx] LORazepam [Lorazepam] 0.5 mg PO Q6H PRN 08/12/16 [History] Melatonin 10 mg PO HS 08/12/16 [History] Albuterol Sulfate [Proair Hfa] 2 puff IH Q4H PRN 10/20/16 [History] Ferrous Sulfate 325 mg PO DAILY 10/20/16 [History] Hydralazine HCl 50 mg PO TID 10/20/16 [History] Nitroglycerin [Nitrostat] 0.4 mg SL Q5M PRN 10/20/16 [History] Oxygen 3 l NS CONT 10/20/16 [History] Potassium Chloride [K-Tab ER] 20 meq PO DAILY 10/20/16 [History] Sertraline [Zoloft] 100 mg PO DAILY 10/20/16 [History] buPROPion HCl [Bupropion HCl Sr] 200 mg PO BID 10/20/16 [History] Furosemide [Lasix] 60 mg PO DAILY #30 tablet 10/23/16 [Rx] LORazepam [Ativan] 2 mg PO HS #10 10/23/16 [Rx] Allergies citalopram [From Celexa] Allergy (Verified 10/20/16 15:01) Abdominal Pain haloperidol [From Haldol] Allergy (Verified 10/20/16 15:01) Hallucinating amlodipine [From Norvasc] Adverse Reaction (Verified 10/20/16 15:01) Nausea risperidone Adverse Reaction (Verified 10/20/16 15:02) See Comments AMS roflumilast [From Daliresp] Adverse Reaction (Verified 10/20/16 15:01) Difficulty Breathing Review of systems: not examined as gone for procedure last evening Oncology - Exam - Constitutional Vitals: Temp Pulse Resp BP Pulse Ox 98.0 F 82 16 152/63 96 11/08/16 14:21 11/08/16 14:21 11/08/16 14:21 11/08/16 14:21 11/08/16 11:12 Consult Discharge Plan - Plan Referrals: Jeff Castaneda MD [Primary Care Provider] -
[2016-11-08] MEDS ORDERED: *HR* Promethazine 25 MG/ML VIAL IVP ONE (17:40)
[2016-11-08] MEDS ORDERED: Tetracaine/Benzocaine/Butamben 200MG/SPRAY (100SPY/BOT) MM ONE (17:40)
[2016-11-08] MEDS ORDERED: Simethicone 40 MG/0.6 ML MLS IR ONE (17:40)
--- NOTE | 2016-11-08 17:40 | Pre-Sedation Evaluation ---
Pre-sedation evaluation - Pre-sedation checklist Procedure: biopsy Recent Vitals: Last Vital Signs Temp 97.9 F 11/08/16 17:36 Pulse 77 11/08/16 17:36 Resp 16 11/08/16 17:36 BP 172/60 11/08/16 17:36 Pulse Ox 96 11/08/16 11:12 H&P (including ROS) documented in medical record: Yes Previous reaction to sedatives/anesthetics: No Dietary Status: NPO after Midnight Airway Assessment: Patient can open mouth completely, TMJ function normal Dentition: dentures removed Possible difficult airway: No ASA Classification *see protocol: CLASS III-Severe systemic disease Plan of Care: Pt appropriate candidate for procedure/moderate/conscious sedation
[2016-11-08] MEDS: *HR* FentaNYL (PF) 100 MCG/2 ML VIAL IVP PRN ×3 (17:44→17:50)
[2016-11-08] MEDS ORDERED: 0.9 % Sodium Chloride 1,000 ML IVC SCH (17:45)
[2016-11-08] MEDS: *HR* Midazolam HCl 5 MG/5 ML VIAL IVP PRN ×3 (17:45→17:50)
--- NOTE | 2016-11-08 18:09 | Event Note ---
Date of Encounter: 11/08/16 Time of Encounter: 18:08 EGD-hiatal hernia with erythema noted at the GE junction. Biopsy performed. Discoloration of the duodenum (possible staining from unknown material). Biopsied. Start full liquid and add carafate. Await pathology result. Thank you.
--- NOTE | 2016-11-08 18:23 | Internal Med Progress Note ---
Date of Encounter: 11/08/16 Time of Encounter: 18:16 - Assessment and plan (1) Gastrointestinal bleed Current Visit: Yes Status: Acute Assessment and plan: Patient has come with severe anemia and her hemoglobin has fallen down to 6. 2 units PRBC have been transfused with 20 units IV Lasix. She will receive her regular dose of Lasix also. Surgery was consulted Qualifiers: GI bleed type/associated pathology: unspecified gastrointestinal hemorrhage type Qualified Code(s): K92.2 - Gastrointestinal hemorrhage, unspecified (2) CHF (congestive heart failure) Current Visit: No Status: Chronic Assessment and plan: Previous history of CHF but at this time euevolemic will observe her closely Qualifiers: Congestive heart failure type: systolic Congestive heart failure chronicity : chronic Qualified Code(s): I50.22 - Chronic systolic (congestive) heart failure (3) COPD (chronic obstructive pulmonary disease) Current Visit: No Status: Chronic Assessment and plan: Stable at this point Qualifiers: COPD type: emphysema Emphysema type: panlobular Qualified Code(s): J43.1 - Panlobular emphysema (4) CKD (chronic kidney disease) Current Visit: No Status: Chronic Assessment and plan: We will watch creatinine closely Qualifiers: Chronic kidney disease stage: stage 3 (moderate) Qualified Code(s): N18.3 - Chronic kidney disease, stage 3 (moderate) - Subjective Interval history: Mrs. Lucy Khalil is a 81-year-old female was admitted for GI bleed abdominal pain and possible UTI. She has history of frequent UTI. Surgery is consulted she is receiving 2 units of blood her hemoglobin went down to 6 - Constitutional Vitals: Temp Pulse Resp BP Pulse Ox 98.7 F 70 12 160/68 97 11/08/16 18:00 11/08/16 18:00 11/08/16 18:00 11/08/16 18:00 11/08/16 18:00 General appearance: Present: A&O X 2, pleasant, no acute distress - Head Head exam: Present: atraumatic, normocephalic - Eye Eye exam: Present: PERRL, conjuntiva pink, sclera anicteric Pupils: Present: PERRL - Neck Neck exam general surgery: Present: supple, trachea midline. Absent: lymphadenopathy - Respiratory Respiratory exam: Present: CTAB. Absent: accessory muscle use, rales, rhonchi, wheezes - Cardiovascular Cardiovascular exam: Present: RRR, +S1, +S2. Absent: diastolic murmur, gallop, rubs, systolic murmur - GI/Abdominal GI/Abdominal exam: Present: normal bowel sounds, soft, no peritoneal signs. Absent: distended, tenderness - Extremities Exam Extremities exam: Present: warm, radial pulses palpable and symetrical. Absent : calf tenderness, cyanotic, pedal edema - Neurological Exam Neurological exam: Present: CN II-XII intact, oriented X3, no focal deficits. Absent: pronater drift, facial droop, speech deficit - Skin Skin exam: Present: dry, intact Internal Medicine: Result - Labs CBC & Chem 7: 11/08/16 00:10 11/08/16 00:10 - ABG Interpretation ABG results: PT/INR, D-dimer PT 12.8 Seconds (9.4-12.1) H 11/07/16 20:18 Consult Discharge Plan - Plan Referrals: Jeff Castaneda MD [Primary Care Provider] -
[2016-11-09] MEDS: Pantoprazole 40 MG in 0.9 % Sodium Chloride Mini Bag 100 ML IVC SCH ×3 (03:15→09:37)
[2016-11-09] MEDS: Sucralfate 1 GM TABLET PO SCH ×2 (05:55→16:53)
[2016-11-09] MEDS: Albuterol 2.5 MG/3 ML NEBULIZER IH SCH ×2 (07:22→15:52)
[2016-11-09] MEDS: Tiotropium 18 MCG inhalation IH SCH (07:23)
[2016-11-09] MEDS: Budesonide/Formoterol 160/4.5 MDI IH SCH ×2 (07:24→20:04)
[2016-11-09] MEDS: Metoprolol XL (24 HR) Succ 25 MG TAB.ER.24H PO SCH (08:11)
[2016-11-09] MEDS: Furosemide 40 MG TABLET PO SCH (08:12)
[2016-11-09] MEDS: BuPROPion SR (12 HR) 100 MG TABLET PO SCH ×2 (08:12→21:07)
[2016-11-09] MEDS: Ascorbic Acid 500 MG TABLET PO SCH (08:12)
[2016-11-09] MEDS: Isosorbide MONOnitrate (24 HR) 60 MG TAB.ER.24H PO SCH (08:13)
[2016-11-09 12:17] LABS: Basophils # 0.1 K/mcL (0.0-0.2); Basophils % 0.6 %; Eosinophils # 0.1 K/mcL (0.0-0.6); Hematocrit 29.3 % (35.3-44.9); Immature Granulocytes % 0.7 % (0-4); Lymphocytes # 0.6 K/mcL (0.6-4.6); Lymphocytes % 6.9 %; Mean Corpuscular HGB Conc 32.1 g/dL (31.6-35.5); Mean Corpuscular Hemoglobin 31.3 pg (28.0-33.3); Mean Corpuscular Volume 97.7 fL (83.0-100.0); Mean Platelet Volume 9.5 fL (9.4-12.4); Monocytes # 0.7 K/mcL (0.0-1.3); Monocytes % 7.6 %; Neutrophils # 7.5 K/mcL (1.6-8.9); Platelet Count 239 K/mcL (140-400); Red Cell Distribution Width 17.2 % (11.5-14.5); Segmented Neutrophils % 83.2 %
[2016-11-09 12:22] LABS: Hemoglobin 9.4 g/dL (11.5-15.4)
[2016-11-09 12:34] LABS: Alanine Aminotransferase 9 Units/L (0-55); Albumin/Globulin Ratio 0.9 (1.1-2.2); Alkaline Phosphatase 70 Units/L (38-126); Aspartate Amino Transferase 24 Units/L (5-34); BUN/Creatinine Ratio 21 (6-26); Blood Urea Nitrogen 17 mg/dL (7-20); Calcium 8.8 mg/dL (8.6-10.8); Carbon Dioxide 29 mEq/L (19-29); Chloride 102 mEq/L (98-109); Globulin 3.5 g/dL (2.4-3.5); Glucose 81 mg/dL (70-99); Osmolality,Calculated 291 (280-300); Potassium 3.5 mEq/L (3.5-4.5); Sodium 140 mEq/L (136-145); Total Protein 6.5 g/dL (6.0-8.3); eGFR For African Americans > 60 (> 60); eGFR For Non-African Americans > 60 (> 60)
[2016-11-09 12:39] LABS: Bilirubin,Total 1.4 mg/dL (0.2-1.2)
[2016-11-09] MEDS: Ondansetron 4 MG/2 ML VIAL IVP PRN ×2 (13:02→21:07)
[2016-11-09] MEDS: hydrALAZINE 25 MG TABLET PO SCH ×2 (14:39→21:07)
--- NOTE | 2016-11-09 17:02 | Internal Med Progress Note ---
Date of Encounter: 11/09/16 Time of Encounter: 17:00 - Assessment and plan (1) Gastrointestinal bleed Current Visit: Yes Status: Acute Assessment and plan: Patient has come with severe anemia and her hemoglobin has fallen down to 6. 2 units PRBC have been transfused with 20 units IV Lasix. She will receive her regular dose of Lasix also. Surgery was consulted patient had EGD today and 2 biopsies were taken. It showed some inflammation. Gastro esophageal junction as well as in duodenu. Mcmillan hemoglobin is 9.4 after 2 units transfusion. Surgery has advised to increase her diet Qualifiers: GI bleed type/associated pathology: gastroduodenitis Qualified Code(s): K29.91 - Gastroduodenitis, unspecified, with bleeding (2) CHF (congestive heart failure) Current Visit: No Status: Chronic Assessment and plan: Previous history of CHF but at this time euevolemic will observe her closely Qualifiers: Congestive heart failure type: systolic Congestive heart failure chronicity : chronic Qualified Code(s): I50.22 - Chronic systolic (congestive) heart failure (3) COPD (chronic obstructive pulmonary disease) Current Visit: No Status: Chronic Assessment and plan: Stable at this point Qualifiers: COPD type: emphysema Emphysema type: panlobular Qualified Code(s): J43.1 - Panlobular emphysema (4) CKD (chronic kidney disease) Current Visit: No Status: Chronic Assessment and plan: We will watch creatinine closely Qualifiers: Chronic kidney disease stage: stage 3 (moderate) Qualified Code(s): N18.3 - Chronic kidney disease, stage 3 (moderate) - Subjective Interval history: Mrs. Lucy Khalil is a 81-year-old female was admitted for GI bleed abdominal pain and possible UTI. She has history of frequent UTI. Surgery is consulted she is receiving 2 units of blood her hemoglobin went down to 6 after transfusion of 2 units patient's hem to 9.4 this morning. She underwent EGD this morning and Surgery plans to do colonoscopy as out patient patient electrolytes have improved and we will increase her diet as tolerated. Her blood pressure medication wito see if her blood pressure can be controlled - Constitutional Vitals: Temp Pulse Resp BP Pulse Ox 98.2 F 96 16 176/67 95 11/09/16 11:29 11/09/16 11:29 11/09/16 15:52 11/09/16 11:29 11/09/16 15:52 General appearance: Present: A&O X 2, pleasant, no acute distress - Head Head exam: Present: atraumatic, normocephalic - Eye Eye exam: Present: PERRL, conjuntiva pink, sclera anicteric Pupils: Present: PERRL - Neck Neck exam general surgery: Present: supple, trachea midline. Absent: lymphadenopathy - Respiratory Respiratory exam: Present: CTAB. Absent: accessory muscle use, rales, rhonchi, wheezes - Cardiovascular Cardiovascular exam: Present: RRR, +S1, +S2. Absent: diastolic murmur, gallop, rubs, systolic murmur - GI/Abdominal GI/Abdominal exam: Present: normal bowel sounds, soft, no peritoneal signs. Absent: distended, tenderness - Extremities Exam Extremities exam: Present: warm, radial pulses palpable and symetrical. Absent : calf tenderness, cyanotic, pedal edema - Neurological Exam Neurological exam: Present: CN II-XII intact, oriented X3, no focal deficits. Absent: pronater drift, facial droop, speech deficit - Skin Skin exam: Present: dry, intact Internal Medicine: Result - Labs CBC & Chem 7: 11/09/16 12:00 11/09/16 12:00 Labs: Short CBC 11/09/16 Range/Units 12:00 WBC 9.1 (4.3-11.1) K/mcL Hgb 9.4 L D (11.5-15.4) g/dL Hct 29.3 L (35.3-44.9) % Plt Count 239 (140-400) K/mcL Neutrophils # 7.5 (1.6-8.9) K/mcL BMP 11/09/16 12:00 Sodium 140 Potassium 3.5 Chloride 102 Carbon Dioxide 29 BUN 17 Creatinine 0.81 Glucose 81 Calcium 8.8 Liver Function 11/09/16 Range/Units 12:00 Total Bilirubin 1.4 H D (0.2-1.2) mg/dL AST 24 (5-34) Units/L ALT 9 (0-55) Units/L Alkaline Phosphatase 70 (38-126) Units/L Albumin 3.0 L (3.5-5.0) g/dL - ABG Interpretation ABG results: PT/INR, D-dimer PT 12.8 Seconds (9.4-12.1) H 11/07/16 20:18 - Impressions Impressions Videofluoroscopic Swallow 11/09/16 00:01 IMPRESSION: Trace laryngeal penetration with thin consistency barium from a cup. Please see separate speech pathology report for full discussion of findings and recommendations. D/ / Moisés Reyes MD / Moisés Reyes MD Interpreting Provider: Moisés Reyes MD - VTE Documentation of Mechanical Device: Intermittent pneumatic compression device Consult Discharge Plan - Plan Referrals: Jeff Castaneda MD [Primary Care Provider] -
[2016-11-09] MEDS: Pantoprazole 40 MG VIAL IVP SCH (18:38)
[2016-11-09] MEDS: Silvasorb 44.4 ML TUBE TP SCH (18:44)
[2016-11-09] MEDS: *HR* LORazepam 1 MG TABLET PO SCH (21:07)
[2016-11-10] MEDS: Albuterol 2.5 MG/3 ML NEBULIZER IH SCH ×2 (02:56→10:37)
[2016-11-10 05:11] LABS: Basophils % 0.6 %; Eosinophils # 0.2 K/mcL (0.0-0.6); Eosinophils % 2.8 %; Hematocrit 27.1 % (35.3-44.9); Hemoglobin 8.4 g/dL (11.5-15.4); Immature Granulocytes % 0.8 % (0-4); Lymphocytes # 0.7 K/mcL (0.6-4.6); Lymphocytes % 10.8 %; Mean Corpuscular Hemoglobin 30.7 pg (28.0-33.3); Mean Corpuscular Volume 98.9 fL (83.0-100.0); Mean Platelet Volume 9.8 fL (9.4-12.4); Monocytes # 0.8 K/mcL (0.0-1.3); Monocytes % 12.8 %; Neutrophils # 4.6 K/mcL (1.6-8.9); Platelet Count 224 K/mcL (140-400); Red Blood Count 2.74 M/mcL (3.82-4.97); Red Cell Distribution Width 16.6 % (11.5-14.5); Segmented Neutrophils % 72.2 %
[2016-11-10 05:32] LABS: Albumin 2.7 g/dL (3.5-5.0); Albumin/Globulin Ratio 0.9 (1.1-2.2); Alkaline Phosphatase 62 Units/L (38-126); Aspartate Amino Transferase 20 Units/L (5-34); BUN/Creatinine Ratio 20 (6-26); Bilirubin,Total 0.9 mg/dL (0.2-1.2); Blood Urea Nitrogen 16 mg/dL (7-20); Calcium 8.6 mg/dL (8.6-10.8); Carbon Dioxide 31 mEq/L (19-29); Chloride 103 mEq/L (98-109); Globulin 3.1 g/dL (2.4-3.5); Glucose 88 mg/dL (70-99); Osmolality,Calculated 293 (280-300); Potassium 2.9 mEq/L (3.5-4.5); Sodium 141 mEq/L (136-145); Total Protein 5.8 g/dL (6.0-8.3); eGFR For African Americans > 60 (> 60); eGFR For Non-African Americans > 60 (> 60)
[2016-11-10 05:35] LABS: Alanine Aminotransferase < 6 Units/L (0-55)
[2016-11-10] MEDS: Pantoprazole 40 MG VIAL IVP SCH (06:15)
[2016-11-10] MEDS: Sucralfate 1 GM TABLET PO SCH ×2 (06:24→16:01)
[2016-11-10] MEDS: *HR* HYDROcodone/Acet 7.5/325 mg TABLET PO PRN (06:27)
[2016-11-10] MEDS: BuPROPion SR (12 HR) 100 MG TABLET PO SCH (09:15)
[2016-11-10] MEDS: Ascorbic Acid 500 MG TABLET PO SCH (09:15)
[2016-11-10] MEDS: hydrALAZINE 25 MG TABLET PO SCH ×2 (09:15→16:01)
[2016-11-10] MEDS: Furosemide 40 MG TABLET PO SCH (09:15)
[2016-11-10] MEDS: Isosorbide MONOnitrate (24 HR) 60 MG TAB.ER.24H PO SCH (09:16)
[2016-11-10] MEDS: Metoprolol XL (24 HR) Succ 25 MG TAB.ER.24H PO SCH (09:16)
[2016-11-10] MEDS: Silvasorb 44.4 ML TUBE TP SCH (10:26)
[2016-11-10] MEDS: Budesonide/Formoterol 160/4.5 MDI IH SCH (10:37)
[2016-11-10] MEDS: Tiotropium 18 MCG inhalation IH SCH (10:37)
[2016-11-10 14:29] VITALS: BP 151/61
--- NOTE | 2016-11-10 15:30 | Discharge Summary ---
Date of Encounter: 11/10/16 Time of Encounter: 15:28 - Discharge Diagnosis (1) Gastrointestinal bleed Priority: Primary Status: Acute Qualifiers: GI bleed type/associated pathology: gastroduodenitis Qualified Code(s): K29.91 - Gastroduodenitis, unspecified, with bleeding (2) CHF (congestive heart failure) Priority: Secondary Status: Chronic Qualifiers: Congestive heart failure type: systolic Congestive heart failure chronicity : chronic Qualified Code(s): I50.22 - Chronic systolic (congestive) heart failure (3) COPD (chronic obstructive pulmonary disease) Priority: Secondary Status: Chronic Qualifiers: COPD type: emphysema Emphysema type: panlobular Qualified Code(s): J43.1 - Panlobular emphysema (4) CKD (chronic kidney disease) Priority: Secondary Status: Chronic Qualifiers: Chronic kidney disease stage: stage 3 (moderate) Qualified Code(s): N18.3 - Chronic kidney disease, stage 3 (moderate) (5) Bacterial pneumonia Priority: Primary Status: Acute Comments: CT chest showed a small right sided atelectasis and effusion. She was treated with IV Rocephin (6) UTI (urinary tract infection), bacterial Priority: Primary Status: Acute Comments: Urine culture yielded Proteus sensitive to cephalosporin she has been treated with IV Rocephin - Discharge Medications Prescriptions: Cefuroxime PO [Ceftin] 500 mg PO Q12HR #20 tablet Pantoprazole Sodium [Protonix] 40 mg PO BID #60 tablet. Sucralfate [Carafate] 1 gm PO QIDAC #120 tablet Home Medications: Budesonide/Formoterol 160/4.5 [Symbicort] 2 puff IH BID 02/20/15 [History] Clopidogrel [Plavix] 75 mg PO DAILY 02/20/15 [History] Tiotropium [Spiriva] 18 mcg IH DAILY 02/20/15 [History] Donepezil [Aricept] 10 mg PO HS 04/03/15 [History] Alendronate Sodium [Fosamax] 70 mg PO MO 07/09/15 [History] Ascorbate Calcium [Vitamin C] 500 mg PO DAILY 07/09/15 [History] Calcium Carbonate/Vitamin D3 [Calcium 500-Vit D3 400 Tablet] 1 tab PO DAILY 04/13 [History] Isosorbide MONOnitrate (24 HR) [Imdur] 60 mg PO DAILY 07/09/15 [History] Losartan [Cozaar] 100 mg PO DAILY 07/09/15 [History] Metoprolol XL (24 HR) Succ [Toprol Xl] 25 mg PO DAILY 07/09/15 [History] Simvastatin [Zocor] 40 mg PO HS 07/09/15 [History] Albuterol Neb [Proventil Neb] 2.5 mg IH TID 07/04/16 [History] HYDROcodone/Acet 7.5/325 mg [[place] 7.5-325 mg] 1 tab PO Q3H PRN #240 tablet 11/12 [Rx] LORazepam [Lorazepam] 0.5 mg PO Q6H PRN 08/12/16 [History] Melatonin 10 mg PO HS 08/12/16 [History] Albuterol Sulfate [Proair Hfa] 2 puff IH Q4H PRN 10/20/16 [History] Ferrous Sulfate 325 mg PO DAILY 10/20/16 [History] Hydralazine HCl 50 mg PO TID 10/20/16 [History] Nitroglycerin [Nitrostat] 0.4 mg SL Q5M PRN 10/20/16 [History] Oxygen 3 l NS CONT 10/20/16 [History] Potassium Chloride [K-Tab ER] 20 meq PO DAILY 10/20/16 [History] Sertraline [Zoloft] 100 mg PO DAILY 10/20/16 [History] buPROPion HCl [Bupropion HCl Sr] 200 mg PO BID 10/20/16 [History] Furosemide [Lasix] 60 mg PO DAILY #30 tablet 10/23/16 [Rx] LORazepam [Ativan] 2 mg PO HS #10 10/23/16 [Rx] Cefuroxime PO [Ceftin] 500 mg PO Q12HR #20 tablet 11/10/16 [Rx] Pantoprazole Sodium [Protonix] 40 mg PO BID #60 tablet. 11/10/16 [Rx] Sucralfate [Carafate] 1 gm PO QIDAC #120 tablet 11/10/16 [Rx] Allergies/Adverse Reactions: Allergies citalopram [From Celexa] Allergy (Verified 10/20/16 15:01) Abdominal Pain haloperidol [From Haldol] Allergy (Verified 10/20/16 15:01) Hallucinating amlodipine [From Norvasc] Adverse Reaction (Verified 10/20/16 15:01) Nausea risperidone Adverse Reaction (Verified 10/20/16 15:02) See Comments AMS roflumilast [From Daliresp] Adverse Reaction (Verified 10/20/16 15:01) Difficulty Breathing Date of admission: 11/08/16 01:04 Primary care physician: Jeff Castaneda MD Consults: 11/08/16 12:04 Consult to Speech Therapy [CONS] Routine Comment: Evaluate, develop and implement POC Reason for Consult: suggested per housekeeping supervisor hotel per pts hx Call Completed: No Discharging clinician: Judah Mancia Anticipated date of discharge: 11/10/16 - Patient Status Disposition: Home Health Service Condition: Fair Functional capacity at discharge: independent ambulation Overall status at discharge: patient is back to baseline - Discharge Instructions Instructions: Urinary Tract Infection in Women (DC) Follow Up With: Lisbeth Salmon, OPERATING ROOM SCHEDULER [Advanced Practice Nurse] - 11/16/16 10:00 am - Diet and Activity Activity: increase activity as tolerated Diet: advance to your usual diet (Patient) Interval History: Mrs. Lucy Khalil is a 81-year-old female past medical history significant for chronic anemia for which she has received multiple transfusions however in the last 2 months she has received 6 units as per her daughter. She has seen Dr. carrillo for hematology consult beside details workup in the past however no cause has been found yet apparently. This time she came in with generalized abdominal pain and melanotic stool. However it was noted that she is on iron supplementation at home. Mild nausea no significant cause or burning in urine or any other respiratory or neurological symptoms. Her CT abdomen was unremarkable except that it showed right pleural effusion raising concern for pneumonia. Urine culture showed Proteus sensitive to cephalosporin and she is kept on Rocephin for both above diagnoses. She was seen by surgery during this hospitalization as per her daughter's request and surgery Dr. Al proceeded with EGD. EGD showed mild gastritis and duodenitis however there was a concern that the tinnitus could be due to ingestion of some colored material. She has hiatal hernia and at the junction of the esophagus and stomach inflammation noted. She has not placed on Protonix and Carafate. The [facility] plans to see her in office in 6 weeks for colonoscopy. Patient is also advised to follow with Dr. carrillo. Her potassium was quite low and it has been supplemented but we will ask the family to get potassium checked few times next week and have those results followed by her family doctor. Patient is tolerating full diet and will be discharged home now on Protonix and Ceftin and Carafate. Dr. Ngo has recommended to stop aspirin and continue Plavix Hospital course: Ms. Khalil is a 81 year old female - Time Spent with Patient Total time spent providing and/or coordinating discharge services: Greater than 30 minutes - Constitutional Vitals: Temp Pulse Resp BP Pulse Ox 97.8 F 74 16 151/61 94 11/10/16 14:25 11/10/16 14:25 11/10/16 14:25 11/10/16 14:25 11/10/16 14:25 General appearance: Present: A&O X 2, pleasant, no acute distress - Head Head exam: Present: atraumatic, normocephalic - Eye Eye exam: Present: PERRL, conjuntiva pink, sclera anicteric Pupils: Present: PERRL - Neck Neck exam general surgery: Present: supple, trachea midline. Absent: lymphadenopathy - Respiratory Respiratory exam: Present: CTAB. Absent: accessory muscle use, rales, rhonchi, wheezes - Cardiovascular Cardiovascular exam: Present: RRR, +S1, +S2. Absent: diastolic murmur, gallop, rubs, systolic murmur - GI/Abdominal GI/Abdominal exam: Present: normal bowel sounds, soft, no peritoneal signs. Absent: distended, tenderness - Extremities Exam Extremities exam: Present: warm, radial pulses palpable and symetrical. Absent : calf tenderness, cyanotic, pedal edema - Neurological Exam Neurological exam: Present: CN II-XII intact, oriented X3, no focal deficits. Absent: pronater drift, facial droop, speech deficit - Skin Skin exam: Present: dry, intact - VTE Documentation of Mechanical Device: Intermittent pneumatic compression device
--- NOTE | 2016-11-10 15:58 | Physician Discharge Referral ---
Home Health/Hosp Referral Info Attending Provider: vince Provider in Charge Post Discharge: PCP (Please check CBC/BMP every 48 hours 3 starting 11/11/2016 and follow the results with primary care physician.) - Diagnosis (1) Gastrointestinal bleed Status: Acute (2) CHF (congestive heart failure) Status: Chronic (3) COPD (chronic obstructive pulmonary disease) Status: Chronic (4) CKD (chronic kidney disease) Status: Chronic (5) Bacterial pneumonia Status: Acute (6) UTI (urinary tract infection), bacterial Status: Acute - Respiratory Orders Smoking Cessation: Smoking cessation has been advised. For more information, call the [place] [employer] Quit Line at 0-216-LIMA-NOW. - Transfer Medications Prescriptions: Cefuroxime PO [Ceftin] 500 mg PO Q12HR #20 tablet Pantoprazole Sodium [Protonix] 40 mg PO BID #60 tablet. Sucralfate [Carafate] 1 gm PO QIDAC #120 tablet Home Medications: Budesonide/Formoterol 160/4.5 [Symbicort] 2 puff IH BID 02/20/15 [History] Clopidogrel [Plavix] 75 mg PO DAILY 02/20/15 [History] Tiotropium [Spiriva] 18 mcg IH DAILY 02/20/15 [History] Donepezil [Aricept] 10 mg PO HS 04/03/15 [History] Alendronate Sodium [Fosamax] 70 mg PO MO 07/09/15 [History] Ascorbate Calcium [Vitamin C] 500 mg PO DAILY 07/09/15 [History] Calcium Carbonate/Vitamin D3 [Calcium 500-Vit D3 400 Tablet] 1 tab PO DAILY 04/13 [History] Isosorbide MONOnitrate (24 HR) [Imdur] 60 mg PO DAILY 07/09/15 [History] Losartan [Cozaar] 100 mg PO DAILY 07/09/15 [History] Metoprolol XL (24 HR) Succ [Toprol Xl] 25 mg PO DAILY 07/09/15 [History] Simvastatin [Zocor] 40 mg PO HS 07/09/15 [History] Albuterol Neb [Proventil Neb] 2.5 mg IH TID 07/04/16 [History] HYDROcodone/Acet 7.5/325 mg [[place] 7.5-325 mg] 1 tab PO Q3H PRN #240 tablet 11/12 [Rx] LORazepam [Lorazepam] 0.5 mg PO Q6H PRN 08/12/16 [History] Melatonin 10 mg PO HS 08/12/16 [History] Albuterol Sulfate [Proair Hfa] 2 puff IH Q4H PRN 10/20/16 [History] Ferrous Sulfate 325 mg PO DAILY 10/20/16 [History] Hydralazine HCl 50 mg PO TID 10/20/16 [History] Nitroglycerin [Nitrostat] 0.4 mg SL Q5M PRN 10/20/16 [History] Oxygen 3 l NS CONT 10/20/16 [History] Potassium Chloride [K-Tab ER] 20 meq PO DAILY 10/20/16 [History] Sertraline [Zoloft] 100 mg PO DAILY 10/20/16 [History] buPROPion HCl [Bupropion HCl Sr] 200 mg PO BID 10/20/16 [History] Furosemide [Lasix] 60 mg PO DAILY #30 tablet 10/23/16 [Rx] LORazepam [Ativan] 2 mg PO HS #10 10/23/16 [Rx] Cefuroxime PO [Ceftin] 500 mg PO Q12HR #20 tablet 11/10/16 [Rx] Pantoprazole Sodium [Protonix] 40 mg PO BID #60 tablet. 11/10/16 [Rx] Sucralfate [Carafate] 1 gm PO QIDAC #120 tablet 11/10/16 [Rx] Allergies/Adverse Reactions: Allergies citalopram [From Celexa] Allergy (Verified 10/20/16 15:01) Abdominal Pain haloperidol [From Haldol] Allergy (Verified 10/20/16 15:01) Hallucinating amlodipine [From Norvasc] Adverse Reaction (Verified 10/20/16 15:01) Nausea risperidone Adverse Reaction (Verified 10/20/16 15:02) See Comments AMS roflumilast [From Daliresp] Adverse Reaction (Verified 10/20/16 15:01) Difficulty Breathing Certification: Further, I certify that my clinical findings support that this patient is homebound (i.e. absences from home require considerable and taxing effort and are for medical reasons or evangelical services or infrequently or short duration when for other reasons) because: Homebound Reason: Patient requires assistance of a person or device to safely leave home Attestation: My signature below is to certify that this patient is under my care and that I, or nurse practitioner, or a physician's budget assistant working with me, has a face-to -face encounter with this patient.
== END 2016-11-10 17:04 | disposition home health service (06) | DRG 377 ==
LOC: EMEROO 18:37 → 3ANU 11-08 01:04
PROVIDERS: ADMIT Internal Medicine Endocrinology, Diabetes & Metabolism; ATTEND Internal Medicine Endocrinology, Diabetes & Metabolism

== ENCOUNTER 2016-11-22 12:28 | Inpatient (IN) ==
--- NOTE | 2016-11-22 12:59 | Emergency Department Note ---
Disposition Clinical Impression: Intractable pain Closed rib fracture Qualifiers: Encounter type: initial encounter Rib fracture type: single rib Laterality: left Qualified Code(s): S22.32XA - Fracture of one rib, left side, initial encounter for closed fracture Disposition: Admitted As Inpatient Referrals: Lisbeth Salmon CNP [Primary Care Provider] - Forms: ED Satisfaction Letter Fall HPI - General Chief Complaint: ED Fall Stated Complaint: Fall Source: patient, family Mode of arrival: ambulatory Limitations: no limitations Nursing Notes Reviewed: Yes Vital Signs Reviewed: Yes - History of Present Illness Pt Subjective Complaint: fall Onset (ago): hour(s) (2) Fall From: other (walking) Fall Witnessed: yes Place Fall Occurred: home Loss of Consciousness: yes Prolonged Down Time?: no Symptoms Prior to Fall: none Context: tripped/slipped Location of injury: other (left chest wall) Severity: severe Quality: dull Associated symptoms (after fall): Denies: headache, neck pain, numbness, weakness - Related Data Home Medications Medication Instructions Recorded Confirmed Budesonide/Formoterol 160/4.5 2 puff IH BID 02/20/15 11/17/16 [Symbicort] Clopidogrel [Plavix] 75 mg PO DAILY 02/20/15 11/17/16 Tiotropium [Spiriva] 18 mcg IH DAILY 02/20/15 11/17/16 Donepezil [Aricept] 10 mg PO HS 04/03/15 11/17/16 Alendronate Sodium [Fosamax] 70 mg PO MO 07/09/15 11/17/16 Ascorbate Calcium [Vitamin C] 500 mg PO DAILY 07/09/15 11/17/16 Calcium Carbonate/Vitamin D3 1 tab PO DAILY 07/09/15 11/17/16 [Calcium 500-Vit D3 400 Tablet] Isosorbide MONOnitrate (24 HR) 60 mg PO DAILY 07/09/15 11/17/16 [Imdur] Losartan [Cozaar] 100 mg PO DAILY 07/09/15 11/17/16 Metoprolol XL (24 HR) Succ [Toprol 25 mg PO DAILY 07/09/15 11/17/16 Xl] Simvastatin [Zocor] 40 mg PO HS 07/09/15 11/17/16 Albuterol Neb [Proventil Neb] 2.5 mg IH TID 07/04/16 11/17/16 LORazepam [Lorazepam] 0.5 mg PO Q6H PRN 08/12/16 11/17/16 Melatonin 10 mg PO HS 08/12/16 11/17/16 Albuterol Sulfate [Proair Hfa] 2 puff IH Q4H PRN 10/20/16 11/17/16 Ferrous Sulfate 325 mg PO DAILY 10/20/16 11/17/16 Hydralazine HCl 50 mg PO TID 10/20/16 11/17/16 Nitroglycerin [Nitrostat] 0.4 mg SL Q5M PRN 10/20/16 11/17/16 Oxygen 3 l NS CONT 10/20/16 11/17/16 Potassium Chloride [K-Tab ER] 20 meq PO DAILY 10/20/16 11/17/16 Sertraline [Zoloft] 100 mg PO DAILY 10/20/16 11/17/16 buPROPion HCl [Bupropion HCl Sr] 200 mg PO BID 10/20/16 11/17/16 Previous Rx's Medication Instructions Recorded HYDROcodone/Acet 7.5/325 mg [[place] 1 tab PO Q3H PRN #240 tablet 08/01/16 7.5-325 mg] Furosemide [Lasix] 60 mg PO DAILY #30 tablet 10/23/16 LORazepam [Ativan] 2 mg PO HS #10 10/23/16 Cefuroxime PO [Ceftin] 500 mg PO Q12HR #20 tablet 11/10/16 Pantoprazole Sodium [Protonix] 40 mg PO BID #60 tablet. 11/10/16 Sucralfate [Carafate] 1 gm PO QIDAC #120 tablet 11/10/16 Allergies Allergy/AdvReac Type Severity Reaction Status Date / Time citalopram [From Celexa] Allergy Abdominal Verified 11/17/16 10:44 Pain haloperidol [From Haldol] Allergy Hallucinati Verified 11/17/16 10:44 ng amlodipine [From Norvasc] AdvReac Nausea Verified 11/17/16 10:44 risperidone AdvReac See Verified 11/17/16 10:44 Comments roflumilast [From Daliresp] AdvReac Difficulty Verified 11/17/16 10:44 Breathing All systems ED: reviewed and negative except as stated. Constitutional: Reports: weakness. Denies: fever Respiratory: Denies: dyspnea, wheezes, hemoptysis Gastrointestinal: Denies: abdominal pain Neurological: Denies: headache Fall PMH - Past Medical History Medical history: Reports: arthritis, CHF, COPD, coronary artery disease, dementia, GERD, hyperlipidemia, hypertension, myocardial infarction, osteoporosis, peripheral artery disease, renal disease, other Surgical history: Reports: cholecystectomy, hysterectomy, orthopedic, other, BHARATHI /BSO, other Psychiatric history: Reports: anxiety, depression - Social History Smoking Status: Former smoker Alcohol use: Reports: none Drug use: Reports: none Physical Exam - General Limitations: no limitations General appearance: alert, in no apparent distress - Eye Eye exam: Present: normal appearance, PERRL, EOMI - ENT ENT exam: normal exam, normal oropharynx, mucous membranes moist - Neck Neck exam: Present: normal inspection, full ROM, trachea midline - Chest Chest inspection: Present: other (left side chest wall pain diffuse small abrasion) - Respiratory Respiratory exam: Present: normal lung sounds bilaterally. Absent: respiratory distress, wheezes - Cardiovascular Cardiovascular exam: Present: regular rate, normal rhythm, normal heart sounds - Neurological Exam Neurological exam: Present: alert, oriented X3 - Psychiatric Psychiatric exam: Present: normal affect, normal mood - Skin Skin exam: Present: warm, dry, intact, normal color Course Vital Signs Temperature 98.5 F 11/22/16 12:29 Pulse Rate 87 11/22/16 12:29 Respiratory Rate 18 11/22/16 12:29 Blood Pressure 147/62 11/22/16 12:29 O2 Sat by Pulse Oximetry 87 11/22/16 12:29 Temperature 98.5 F 11/22/16 12:29 Pulse Rate 82 11/22/16 13:14 Respiratory Rate 18 11/22/16 13:14 Blood Pressure 128/59 11/22/16 13:14 O2 Sat by Pulse Oximetry 94 11/22/16 13:14 Oxygen Delivery Oxygen Delivery Nasal Cannula Fall - Lab Data Result diagrams: 11/22/16 15:11 11/22/16 15:11 Lab Results 11/22/16 11/22/16 11/22/16 Range/Units 15:11 15:11 15:11 WBC 10.3 (4.3-11.1) K/mcL RBC 2.83 L (3.82-4.97) M/mcL Hgb 8.6 L (11.5-15.4) g/dL Hct 28.3 L (35.3-44.9) % MCV 100.0 (83.0-100.0) fL MCH 30.4 (28.0-33.3) pg MCHC 30.4 L (31.6-35.5) g/dL RDW 14.6 H (11.5-14.5) % Plt Count 319 (140-400) K/mcL MPV 9.4 (9.4-12.4) fL Immature Gran % 0.6 (0-4) % Seg Neutrophils % 80.5 % Lymphocytes % 7.8 % Monocytes % 7.7 % Eosinophils % 3.0 % Basophils % 0.4 % Neutrophils # 8.3 (1.6-8.9) K/mcL Lymphocytes # 0.8 (0.6-4.6) K/mcL Monocytes # 0.8 (0.0-1.3) K/mcL Eosinophils # 0.3 (0.0-0.6) K/mcL Basophils # 0.0 (0.0-0.2) K/mcL PT 12.5 H (9.4-12.1) Seconds INR 1.2 Sodium 144 (136-145) mEq/L Potassium 3.7 (3.5-4.5) mEq/L Chloride 109 (98-109) mEq/L Carbon Dioxide 29 (19-29) mEq/L BUN 20 (7-20) mg/dL Creatinine 0.80 (0.57-1.11) mg/dL Est GFR ( Amer) > 60 (> 60) Est GFR (Non-Af Amer) > 60 (> 60) BUN/Creatinine Ratio 25 (6-26) Glucose 88 (70-99) mg/dL Calculated Osmolality 300 (280-300) Calcium 8.7 (8.6-10.8) mg/dL
[2016-11-22] MEDS ORDERED: *HR* OxyCODONE/APAP 10/325 TABLET PO ONE (14:22)
[2016-11-22 15:31] LABS: Basophils % 0.4 %; Eosinophils # 0.3 K/mcL (0.0-0.6); Hematocrit 28.3 % (35.3-44.9); Hemoglobin 8.6 g/dL (11.5-15.4); Immature Granulocytes % 0.6 % (0-4); Lymphocytes # 0.8 K/mcL (0.6-4.6); Lymphocytes % 7.8 %; Mean Corpuscular HGB Conc 30.4 g/dL (31.6-35.5); Mean Corpuscular Hemoglobin 30.4 pg (28.0-33.3); Mean Platelet Volume 9.4 fL (9.4-12.4); Monocytes # 0.8 K/mcL (0.0-1.3); Monocytes % 7.7 %; Neutrophils # 8.3 K/mcL (1.6-8.9); Platelet Count 319 K/mcL (140-400); Red Blood Count 2.83 M/mcL (3.82-4.97); Red Cell Distribution Width 14.6 % (11.5-14.5); Segmented Neutrophils % 80.5 %
[2016-11-22 15:42] LABS: INR 1.2; Prothrombin Time 12.5 Seconds (9.4-12.1)
[2016-11-22 15:45] LABS: Activated Partial Thrombo Time 26.2 Seconds (26.0-36.0)
[2016-11-22 15:47] LABS: BUN/Creatinine Ratio 25 (6-26); Blood Urea Nitrogen 20 mg/dL (7-20); Calcium 8.7 mg/dL (8.6-10.8); Carbon Dioxide 29 mEq/L (19-29); Chloride 109 mEq/L (98-109); Glucose 88 mg/dL (70-99); Osmolality,Calculated 300 (280-300); Potassium 3.7 mEq/L (3.5-4.5); Sodium 144 mEq/L (136-145); eGFR For African Americans > 60 (> 60); eGFR For Non-African Americans > 60 (> 60)
[2016-11-22] MEDS ORDERED: Naloxone 0.4 MG/ML INJ IVP PRN (18:04)
[2016-11-22] MEDS: *HR* Morphine 2 MG/ML SYRINGE IVP PRN (18:29)
--- NOTE | 2016-11-22 18:49 | Event Note ---
Date of Encounter: 11/22/16 Time of Encounter: 18:49 81 F with multiple medical co-morbidities, recurrent falls, CHF, Ischemic CMP, HTN, Dementia, COPD, CAD, GERD, HLD, Anxiety/depression, Chronic anemia, Lung nodule Seen with family at bedside, in painful distress Had a mechanical fall at home and sustained a fracture to her 9th rib Her other medical conditions are stable Physical exam reveals a chronically ill-looking, cachectic, fragile elderly lady , alert, oriented X3, no neurologic deficits. CTAB, HS S1, S2 only, Abdomen is soft, not tender, extremities with 1+ ankle edema. Labs and Imaging reviewed A/P Rib fracture secondary to fall. Incentive spirometry, pain control, fall precautions, PT/OT/SW eval . Polypharmacy, low normal blood pressure: adjust medications Other chronic medical conditions including anemia is stable at time of review Rest of details as in [employer] Strange documentation
--- NOTE | 2016-11-22 19:10 | Internal Med History&Physical ---
Date of Encounter: 11/22/16 Time of Encounter: 19:10 Assessment and Plan (1) Rib fracture Current visit: Yes Status: Acute 1 patient experienced a mechanical fall from standing sustained ninth rib fracture. Patient is very frail and has had several falls in the past few months. We will continue with pain medications morphine as well as topical lidocaine patch.-May consider possible muscle relaxer if no relief 2 consult PT and OT 3 addiction social worker for discharge planning 4 fall precautions Qualifiers: Encounter type: initial encounter Rib fracture type: single rib Fracture type: closed Laterality: left Qualified Code(s): S22.32XA - Fracture of one rib, left side, initial encounter for closed fracture (2) Fall Current visit: No Status: Chronic 1 patient sustained multiple falls today she experienced a mechanical fall from standing. We will place patient on fall precautions 2 PT OT consult Qualifiers: Encounter type: subsequent encounter Qualified Code(s): W19.XXXD - Unspecified fall, subsequent encounter (3) Lung nodule Current visit: No Status: Chronic 1 patient is recently been diagnosed with a lung nodule she will follow-up with oncology as outpatient. Patient scheduled for PET scan today which had to be rescheduled due to fall. She will need to reschedule this as outpatient (4) CAD (coronary artery disease) Current visit: No Status: Chronic 1 continue beta norbert nitrates ARB and statin 2 cardiac diet Qualifiers: Coronary Disease-Associated Artery/Lesion type: [place] artery [place] vs. transplanted heart: [place] heart Associated angina: angina presence unspecified Qualified Code(s): I25.10 - Atherosclerotic heart disease of [place] coronary artery without angina pectoris (5) CHF (congestive heart failure) Current visit: No Status: Chronic 1 BUN is 40-45% will continue with Lasix, ARB 2 . Intake and output daily weight 3 low sodium diet Qualifiers: Congestive heart failure type: systolic Congestive heart failure chronicity : chronic Qualified Code(s): I50.22 - Chronic systolic (congestive) heart failure (6) CKD (chronic kidney disease) Current visit: No Status: Chronic 1 presently stable we will continue to monitor creatinine 2 monitor intake and output daily weights 3 avoid nephrotoxins Qualifiers: Chronic kidney disease stage: stage 3 (moderate) Qualified Code(s): N18.3 - Chronic kidney disease, stage 3 (moderate) (7) COPD (chronic obstructive pulmonary disease) Current visit: No Status: Chronic 1 presently stable we will continue with oxygen titrating maintain SPO2 greater than 92% 2 continue with bronchodilators Qualifiers: COPD type: emphysema Emphysema type: panlobular Qualified Code(s): J43.1 - Panlobular emphysema (8) DVT prophylaxis Current visit: Yes Status: Acute 1 [facility] Internal Medicine - H&P: HPI Chief complaint: rib pain Admitted From: Emergency Dept Plans for Post Hospital Care: Home History of present illness: Ms. Khalil is a 81 year old female past medical history COPD oxygen dependent CHF dementia hypertension GERD hyperlipidemia chronic anemia anxiety/depression and chronic lung nodule recurrent falls coronary artery disease. According to the family patient health has declined since May of this year, that is when she had a fall and sustained a pelvic fracture. She had 2 months of rehabilitation sent home. She also has been experiencing chronic anemia has been worked up, EGD revealed no active bleeding biopsies were obtained, awaiting colonoscopy. As well as a presence of a lung nodule which she is to undergo PET scan however this has been rescheduled due to this hospitalization. Apparently today patient was attempting to ambulate using her walker she try to weigh herself on a scale lost her balance and fell backwards landing on her left side. She was brought to the ER for evaluation chest x-ray did reveal ninth rib fracture. Lab work was obtained which presently appears to be stable. Patient is very frail and unsteady on her feet she has been admitted for further workup evaluation possible ECF placement upon discharge. Presently the patient appears to be mild distress. She states she is having left-sided rib pain. She did receive pain medication she is alert appropriate however she is very hard of hearing. Heart sounds are regular S1-S2 with no rubs clicks, murmurs noted lungs sounds clear abdomen soft nontender slight +1 edema lower extremities. She is hemodynamically stable I Review this case with who agrees with plan. Past Med Surg Social Fam HX - Past Medical History Medical history: arthritis, CHF, COPD, coronary artery disease, dementia, GERD, hyperlipidemia, hypertension, myocardial infarction, osteoporosis, peripheral artery disease, renal disease, other Psychiatric history: anxiety, depression - Past Surgical History Surgical History: cholecystectomy, hysterectomy, orthopedic, other, BHARATHI/BSO, other - Social History Smoking Status: Former smoker Smokeless Tobacco Status: No Alcohol use: none Drug use: none - Family History Father Living Status: Hx Family Cardiac Disorders: Yes Hx Family Cancer: Yes (RCC) Mother Living Status: Hx Family Cardiac Disorders: Yes Hx Family Respiratory Disorders: No Hx Family Cancer: Yes (bladder cancer) Hx Family GI Disorders: No Hx Family Genitourinary Disorders: No Hx Family Endocrine Disorder: No Hx Family Musculoskeletal Disorders: No Hx Family Neuromuscular Disorders: No Hx Family Neurologic Disorders: No Internal Medicine - H&P: Meds Budesonide/Formoterol 160/4.5 [Symbicort] 2 puff IH BID 02/20/15 [History] Clopidogrel [Plavix] 75 mg PO DAILY 02/20/15 [History] Tiotropium [Spiriva] 18 mcg IH DAILY 02/20/15 [History] Donepezil [Aricept] 10 mg PO HS 04/03/15 [History] Alendronate Sodium [Fosamax] 70 mg PO MO 07/09/15 [History] Ascorbate Calcium [Vitamin C] 500 mg PO DAILY 07/09/15 [History] Isosorbide MONOnitrate (24 HR) [Imdur] 60 mg PO DAILY 07/09/15 [History] Losartan [Cozaar] 100 mg PO DAILY 07/09/15 [History] Metoprolol XL (24 HR) Succ [Toprol Xl] 25 mg PO DAILY 07/09/15 [History] Simvastatin [Zocor] 40 mg PO HS 07/09/15 [History] Albuterol Neb [Proventil Neb] 2.5 mg IH TID 07/04/16 [History] HYDROcodone/Acet 7.5/325 mg [[place] 7.5-325 mg] 1 tab PO Q3H PRN #240 tablet 11/12 [Rx] Melatonin 10 mg PO HS 08/12/16 [History] Albuterol Sulfate [Proair Hfa] 2 puff IH Q4H PRN 10/20/16 [History] Ferrous Sulfate 325 mg PO DAILY 10/20/16 [History] Hydralazine HCl 50 mg PO TID 10/20/16 [History] Nitroglycerin [Nitrostat] 0.4 mg SL Q5M PRN 10/20/16 [History] Oxygen 3 l NS CONT 10/20/16 [History] Sertraline [Zoloft] 100 mg PO DAILY 10/20/16 [History] buPROPion HCl [Bupropion HCl Sr] 200 mg PO BID 10/20/16 [History] Furosemide [Lasix] 60 mg PO DAILY #30 tablet 10/23/16 [Rx] Pantoprazole Sodium [Protonix] 40 mg PO BID #60 tablet. 11/10/16 [Rx] Sucralfate [Carafate] 1 gm PO QIDAC #120 tablet 11/10/16 [Rx] LORazepam [Ativan] 1 mg PO Q6H PRN 11/22/16 [History] Potassium Chloride [Klor-Con 10] 10 meq PO BID 11/22/16 [History] Allergies citalopram [From Celexa] Allergy (Verified 11/22/16 16:12) Difficulty Breathing amlodipine [From Norvasc] Adverse Reaction (Verified 11/22/16 16:12) Difficulty Breathing also swelling haloperidol [From Haldol] Adverse Reaction (Verified 11/22/16 16:12) Hallucinating risperidone Adverse Reaction (Verified 11/17/16 10:44) See Comments AMS roflumilast [From Daliresp] Adverse Reaction (Verified 11/22/16 16:12) Difficulty Breathing also rash All Systems PM: A 10-system review of systems was performed and is negative for pertinent findings except as documented above in the HPI. - Constitutional Constitutional: no chills, no fever(s), no night sweats - EENT Eyes: no change in vision, no discharge, no pain, no photophobia Ears: no ear discharge, no ear pain, no tinnitus Nose, mouth and throat: no dysphagia, no nasal discharge, no neck pain, no sore throat - Cardiovascular Cardiovascular ROS IM: no chest pain, no diaphoresis, no dyspnea, no lightheadedness, no palpitations, no syncope - Respiratory Respiratory: no cough, no dyspnea, no wheezing, no excessive phlegm production - Gastrointestinal Gastrointestinal: no abdominal pain, no diarrhea, no hematemesis, no hematochezia, no melena, no nausea, no vomiting - Genitourinary Genitourinary: no change in urinary stream, no dysuria, no flank pain, no hematuria - Musculoskeletal Musculoskeletal ROS IM: other Additional comments: Left-sided rib pain - Integumentary Integumentary IM: sores - Neurological Neurological ROS: no confusion, no convulsions, no focal weakness, no numbness, no tingling, no tremor(s) - Hematologic/Lymphatic Hematologic/Lymphatic: no easy bruising - Constitutional Vitals: Temp Pulse Resp BP Pulse Ox 98.8 F 76 24 136/68 94 11/22/16 17:06 11/22/16 17:06 11/22/16 17:06 11/22/16 17:06 11/22/16 17:14 General appearance: Present: mild distress, A&O X 3 - Head Head exam: Present: atraumatic, normocephalic - Eye Eye exam: Present: PERRL, conjuntiva pink, sclera anicteric Pupils: Present: PERRL - Neck Neck exam general surgery: Present: supple, trachea midline. Absent: lymphadenopathy - Respiratory Respiratory exam: Present: CTAB. Absent: accessory muscle use, rales, rhonchi, wheezes - Cardiovascular Cardiovascular exam: Present: RRR, +S1, +S2. Absent: diastolic murmur, gallop, rubs, systolic murmur - GI/Abdominal GI/Abdominal exam: Present: normal bowel sounds, soft, no peritoneal signs. Absent: distended, tenderness - Extremities Exam Extremities exam: Present: warm, radial pulses palpable and symetrical. Absent : calf tenderness, cyanotic, pedal edema - Neurological Exam Neurological exam: Present: CN II-XII intact, oriented X3, no focal deficits. Absent: pronater drift, facial droop, speech deficit - Skin Skin exam: Present: dry, intact Internal Med - H&P Results - Labs CBC & Chem 7: 11/22/16 15:11 11/22/16 15:11 - Diagnostic Studies Other Images Additional comments: Ribs w/Chest X-Ray 11/22/16 12:57 IMPRESSION: No acute cardiopulmonary disease. Stable mild cardiomegaly with generalized prominence of the interstitial markings. Left posterolateral 9th rib fracture. D/ / Rusty Harris MD / Rusty Harris MD Interpreting Provider: Rusty Harris MD Hip X-Ray 11/22/16 13:18 IMPRESSION: 1. No acute osseous abnormality in the pelvis or left hip. 2. Diffuse osteopenia. 3. [id number] bilateral hip joint osteoarthritis. D/ / Graham Ramos MD / Graham Ramos MD Interpreting Provider: Graham Ramos MD
[2016-11-22] MEDS: *HR* HYDROcodone/Acet 5/325 mg TABLET PO PRN (21:18)
[2016-11-22] MEDS: Budesonide/Formoterol 160/4.5 MDI IH SCH (21:33)
[2016-11-22] MEDS: Melatonin 3 MG TABLET PO SCH (22:06)
[2016-11-22] MEDS: hydrALAZINE 25 MG TABLET PO SCH (22:07)
[2016-11-22] MEDS: Sucralfate 1 GM TABLET PO SCH (22:08)
[2016-11-22] MEDS: BuPROPion SR (12 HR) 100 MG TABLET PO SCH (22:08)
[2016-11-22] MEDS ORDERED: *HR* LORazepam 1 MG TABLET PO ONE (23:56)
[2016-11-23] MEDS: *HR* LORazepam 1 MG TABLET PO PRN ×2 (00:10→12:03)
[2016-11-23 04:04] LABS: Basophils % 0.5 %; Eosinophils # 0.2 K/mcL (0.0-0.6); Eosinophils % 2.8 %; Hematocrit 28.4 % (35.3-44.9); Hemoglobin 8.6 g/dL (11.5-15.4); Immature Granulocytes % 0.3 % (0-4); Lymphocytes % 11.6 %; Mean Corpuscular HGB Conc 30.3 g/dL (31.6-35.5); Mean Corpuscular Hemoglobin 29.7 pg (28.0-33.3); Mean Corpuscular Volume 97.9 fL (83.0-100.0); Mean Platelet Volume 9.2 fL (9.4-12.4); Monocytes # 0.9 K/mcL (0.0-1.3); Monocytes % 10.6 %; Neutrophils # 6.4 K/mcL (1.6-8.9); Platelet Count 325 K/mcL (140-400); Red Cell Distribution Width 14.6 % (11.5-14.5); Segmented Neutrophils % 74.2 %
[2016-11-23 04:16] LABS: BUN/Creatinine Ratio 27 (6-26); Blood Urea Nitrogen 23 mg/dL (7-20); Calcium 8.9 mg/dL (8.6-10.8); Carbon Dioxide 26 mEq/L (19-29); Chloride 108 mEq/L (98-109); Glucose 92 mg/dL (70-99); Osmolality,Calculated 293 (280-300); Potassium 3.5 mEq/L (3.5-4.5); Sodium 140 mEq/L (136-145); eGFR For African Americans > 60 (> 60); eGFR For Non-African Americans > 60 (> 60)
[2016-11-23] MEDS: *HR* Enoxaparin 40 MG/0.4 ML SYRINGE SQ SCH (05:51)
[2016-11-23] MEDS: *HR* HYDROcodone/Acet 5/325 mg TABLET PO PRN ×4 (05:51→20:07)
[2016-11-23] MEDS: *HR* Morphine 2 MG/ML SYRINGE IVP PRN ×3 (07:58→17:52)
[2016-11-23] MEDS: Furosemide 40 MG TABLET PO SCH (07:58)
[2016-11-23] MEDS: BuPROPion SR (12 HR) 100 MG TABLET PO SCH ×2 (07:59→20:08)
[2016-11-23] MEDS: Ascorbic Acid 500 MG TABLET PO SCH (07:59)
[2016-11-23] MEDS: Metoprolol XL (24 HR) Succ 25 MG TAB.ER.24H PO SCH (07:59)
[2016-11-23] MEDS: hydrALAZINE 25 MG TABLET PO SCH ×3 (08:00→20:08)
[2016-11-23] MEDS: Sucralfate 1 GM TABLET PO SCH ×4 (08:00→22:17)
[2016-11-23] MEDS: Isosorbide MONOnitrate (24 HR) 60 MG TAB.ER.24H PO SCH (08:00)
[2016-11-23] MEDS: Budesonide/Formoterol 160/4.5 MDI IH SCH ×2 (10:11→22:27)
[2016-11-23] MEDS: Tiotropium 18 MCG inhalation IH SCH (10:19)
--- NOTE | 2016-11-23 16:31 | Internal Med Progress Note ---
Date of Encounter: 11/23/16 Time of Encounter: 16:28 - Assessment and plan (1) Rib fracture Current Visit: Yes Status: Acute Assessment and plan: 1 patient experienced a mechanical fall from standing sustained ninth rib fracture. Patient is very frail and has had several falls in the past few months. pain is much cntrolled with pain meds, although will enforce oral pain meds to avoid confusion and delirium. 2 consult PT and OT 3 transition social worker for discharge planning 4 fall precautions 5 incentive spirometry 6. DVT prophylaxis. Qualifiers: Encounter type: initial encounter Rib fracture type: single rib Fracture type: closed Laterality: left Qualified Code(s): S22.32XA - Fracture of one rib, left side, initial encounter for closed fracture (2) CHF (congestive heart failure) Current Visit: No Status: Chronic Assessment and plan: 1 LVEF is 40-45% will continue with Lasix, ARB 2 . Intake and output daily weight 3 low sodium diet Qualifiers: Congestive heart failure type: systolic Congestive heart failure chronicity : chronic Qualified Code(s): I50.22 - Chronic systolic (congestive) heart failure (3) COPD (chronic obstructive pulmonary disease) Current Visit: No Status: Chronic Assessment and plan: 1 presently stable we will continue with oxygen titrating maintain SPO2 greater than 92% 2 continue with bronchodilators Qualifiers: COPD type: emphysema Emphysema type: panlobular Qualified Code(s): J43.1 - Panlobular emphysema (4) CKD (chronic kidney disease) Current Visit: No Status: Chronic Assessment and plan: 1 presently stable we will continue to monitor creatinine 2 monitor intake and output daily weights 3 avoid nephrotoxins Qualifiers: Chronic kidney disease stage: stage 3 (moderate) Qualified Code(s): N18.3 - Chronic kidney disease, stage 3 (moderate) (5) Falls frequently Current Visit: No Status: Chronic - Subjective Interval history: seen at the bedside, edwin lying in bed with no acute distress daughter by the bedside, denies much pain now but as per the daughter , the pain meds make her confused. - Constitutional Vitals: Temp Pulse Resp BP Pulse Ox 97.9 F 74 16 163/73 98 11/23/16 15:22 11/23/16 15:22 11/23/16 15:22 11/23/16 15:22 11/23/16 15:22 General appearance: Present: A&O X 3 Exam: - Head Head exam: Present: atraumatic, normocephalic - Eye Eye exam: Present: PERRL, conjuntiva pink, sclera anicteric Pupils: Present: PERRL - Neck Neck exam general surgery: Present: supple, trachea midline. Absent: lymphadenopathy - Respiratory Respiratory exam: Present: CTAB. Absent: accessory muscle use, rales, rhonchi, wheezes - Cardiovascular Cardiovascular exam: Present: RRR, +S1, +S2. Absent: diastolic murmur, gallop, rubs, systolic murmur - GI/Abdominal GI/Abdominal exam: Present: normal bowel sounds, soft, no peritoneal signs. Absent: distended, tenderness - Extremities Exam Extremities exam: Present: warm, radial pulses palpable and symetrical. Absent : calf tenderness, cyanotic, pedal edema - Neurological Exam Neurological exam: Present: CN II-XII intact, oriented X3, no focal deficits. Absent: pronater drift, facial droop, speech deficit - Skin Skin exam: Present: dry, intact Internal Medicine: Result - Labs CBC & Chem 7: 11/23/16 03:41 11/23/16 03:41 Labs: Short CBC 11/23/16 Range/Units 03:41 WBC 8.7 (4.3-11.1) K/mcL Hgb 8.6 L (11.5-15.4) g/dL Hct 28.4 L (35.3-44.9) % Plt Count 325 (140-400) K/mcL Neutrophils # 6.4 (1.6-8.9) K/mcL BMP 11/23/16 03:41 Sodium 140 Potassium 3.5 Chloride 108 Carbon Dioxide 26 BUN 23 H Creatinine 0.86 Glucose 92 Calcium 8.9 - ABG Interpretation ABG results: PT/INR, D-dimer PT 12.5 Seconds (9.4-12.1) H 11/22/16 15:11 Consult Discharge Plan - Plan Referrals: Lisbeth Salmon, BARYTES GRINDER [Primary Care Provider] -
[2016-11-23] MEDS: Melatonin 3 MG TABLET PO SCH (20:08)
[2016-11-23] MEDS ORDERED: *HR* HYDROcodone/Acet 7.5/325 mg TABLET PO PRN (20:12)
[2016-11-23] MEDS ORDERED: *HR* Morphine 2 MG/ML SYRINGE IVP PRN (20:13)
[2016-11-23] MEDS ORDERED: *HR* LORazepam 1 MG TABLET PO ONE (20:25)
[2016-11-24] MEDS: *HR* LORazepam 1 MG TABLET PO PRN ×4 (02:25→21:57)
[2016-11-24] MEDS: *HR* Enoxaparin 40 MG/0.4 ML SYRINGE SQ SCH (06:22)
[2016-11-24] MEDS: Tiotropium 18 MCG inhalation IH SCH (08:04)
[2016-11-24] MEDS: Budesonide/Formoterol 160/4.5 MDI IH SCH ×2 (08:04→20:04)
[2016-11-24] MEDS: hydrALAZINE 25 MG TABLET PO SCH ×3 (08:05→20:36)
[2016-11-24] MEDS: Metoprolol XL (24 HR) Succ 25 MG TAB.ER.24H PO SCH (08:10)
[2016-11-24] MEDS: Furosemide 40 MG TABLET PO SCH (08:12)
[2016-11-24] MEDS: Isosorbide MONOnitrate (24 HR) 60 MG TAB.ER.24H PO SCH (08:13)
[2016-11-24] MEDS: BuPROPion SR (12 HR) 100 MG TABLET PO SCH ×2 (08:15→20:36)
[2016-11-24] MEDS: Ascorbic Acid 500 MG TABLET PO SCH (08:17)
[2016-11-24] MEDS: Sucralfate 1 GM TABLET PO SCH ×4 (08:18→20:36)
--- NOTE | 2016-11-24 11:14 | Electrocardiograph Report ---
[address] [address] Test Date: 2016-11-22 Pat Name: Mayra Khalil Department: 102 Room: 3A14 Gender: F Net Manager: : [id number] Requested By: Aidan Lozoya Order Number: [id number] Reading MD: Giorgi Pimentel MD Measurements Intervals [place] Rate: 75 P: 53 ID: [id number] QRS: 43 QRSD: 100 T: 93 QT: 355 QTc: 384 Interpretive Statements SINUS RHYTHM BASELINE ARTIFACT Electronically Signed On 11-24-2016 11:13:02 EDT by Giorgi Pimentel MD
[2016-11-24] MEDS: *HR* OxyCODONE Immed Rel 5 MG TABLET PO PRN (15:56)
--- NOTE | 2016-11-24 16:02 | Internal Med Progress Note ---
Date of Encounter: 11/24/16 Time of Encounter: 15:58 - Assessment and plan (1) Rib fracture Current Visit: Yes Status: Acute Assessment and plan: 1 patient experienced a mechanical fall from standing sustained 7-8-ninth rib fracture. Patient is very frail and has had several falls in the past few months. pain is much cntrolled with pain meds, although will enforce oral pain meds to avoid confusion and delirium, have changed oral pain meds to oxycodone and have decreased morphine to 2 mg. 2 consult PT and OT 3 social media assistant for discharge planning, patient and the family do not want her to go to [facility]. 4 fall precautions 5 incentive spirometry 6. DVT prophylaxis. Qualifiers: Encounter type: initial encounter Rib fracture type: single rib Fracture type: closed Laterality: left Qualified Code(s): S22.32XA - Fracture of one rib, left side, initial encounter for closed fracture (2) CHF (congestive heart failure) Current Visit: No Status: Chronic Assessment and plan: 1 LVEF is 40-45% will continue with Lasix, ARB 2 . Intake and output daily weight 3 low sodium diet Qualifiers: Congestive heart failure type: systolic Congestive heart failure chronicity : chronic Qualified Code(s): I50.22 - Chronic systolic (congestive) heart failure (3) COPD (chronic obstructive pulmonary disease) Current Visit: No Status: Chronic Assessment and plan: 1 presently stable we will continue with oxygen titrating maintain SPO2 greater than 92% 2 continue with bronchodilators Qualifiers: COPD type: emphysema Emphysema type: panlobular Qualified Code(s): J43.1 - Panlobular emphysema (4) CKD (chronic kidney disease) Current Visit: No Status: Chronic Assessment and plan: 1 presently stable we will continue to monitor creatinine 2 monitor intake and output daily weights 3 avoid nephrotoxins Qualifiers: Chronic kidney disease stage: stage 3 (moderate) Qualified Code(s): N18.3 - Chronic kidney disease, stage 3 (moderate) (5) Falls frequently Current Visit: No Status: Chronic - Subjective Interval history: seen at the bedside, patidemetrio lying in bed with no acute distress appears a little confused and drowsy, seh just got 4 mg of morphine. daughter by the bedside, reports that the pain meds make her confused. morphine was increased to 4mg last night due to severe pain/ - Constitutional Vitals: Temp Pulse Resp BP Pulse Ox 97.4 F L 80 16 154/64 96 11/24/16 14:43 11/24/16 14:43 11/24/16 14:43 11/24/16 14:43 11/24/16 14:43 General appearance: Present: A&O X 3 Exam: - Head Head exam: Present: atraumatic, normocephalic - Eye Eye exam: Present: PERRL, conjuntiva pink, sclera anicteric Pupils: Present: PERRL - Neck Neck exam general surgery: Present: supple, trachea midline. Absent: lymphadenopathy - Respiratory Respiratory exam: Present: CTAB. Absent: accessory muscle use, rales, rhonchi, wheezes - Cardiovascular Cardiovascular exam: Present: RRR, +S1, +S2. Absent: diastolic murmur, gallop, rubs, systolic murmur - GI/Abdominal GI/Abdominal exam: Present: normal bowel sounds, soft, no peritoneal signs. Absent: distended, tenderness - Extremities Exam Extremities exam: Present: warm, radial pulses palpable and symetrical. Absent : calf tenderness, cyanotic, pedal edema - Neurological Exam Neurological exam: Present: CN II-XII intact, oriented X3, no focal deficits. Absent: pronater drift, facial droop, speech deficit - Skin Skin exam: Present: dry, intact Internal Medicine: Result - Labs CBC & Chem 7: 11/23/16 03:41 11/23/16 03:41 - ABG Interpretation ABG results: PT/INR, D-dimer PT 12.5 Seconds (9.4-12.1) H 11/22/16 15:11 - Impressions Impressions Ribs w/Chest X-Ray 11/23/16 20:15 IMPRESSION: Stable chest re- demonstrating coarse parenchymal markings and left 9th rib fracture. Left 7th and 8th rib fractures are also seen on the current study. D/ / Brenton Gray MD / Brenton Gray MD Interpreting Provider: Brenton Gray MD Consult Discharge Plan - Plan Referrals: Catrachito Coburn MD [Partnered Physician] - 12/02/16 3:00 pm
[2016-11-24] MEDS: *HR* Morphine 2 MG/ML SYRINGE IVP PRN ×2 (18:23→23:37)
[2016-11-24] MEDS: Acetaminophen 325 MG TABLET PO PRN (20:36)
[2016-11-24] MEDS: Melatonin 3 MG TABLET PO SCH (20:36)
[2016-11-24] MEDS: Ondansetron 4 MG/2 ML VIAL IVP PRN (21:06)
[2016-11-25] MEDS: *HR* OxyCODONE Immed Rel 5 MG TABLET PO PRN (01:28)
[2016-11-25] MEDS: *HR* Morphine 2 MG/ML SYRINGE IVP PRN (03:06)
[2016-11-25] MEDS: *HR* Enoxaparin 40 MG/0.4 ML SYRINGE SQ SCH (05:43)
[2016-11-25] MEDS: Ondansetron 4 MG/2 ML VIAL IVP PRN (06:24)
[2016-11-25] MEDS: *HR* LORazepam 1 MG TABLET PO PRN ×2 (06:46→22:47)
[2016-11-25] MEDS ORDERED: Ipratropium/Albuterol Neb 3 ML IH ONE (07:01)
[2016-11-25] MEDS ORDERED: *HR* Promethazine 25 MG/ML VIAL IVP PRN (07:07)
[2016-11-25] MEDS: Budesonide/Formoterol 160/4.5 MDI IH SCH ×2 (07:34→21:47)
[2016-11-25] MEDS: Tiotropium 18 MCG inhalation IH SCH (07:35)
[2016-11-25] MEDS ORDERED: Furosemide 40 MG/4 ML VIAL IVP ONE (07:37)
[2016-11-25] MEDS ORDERED: Furosemide 40 MG/4 ML VIAL ONE (07:38)
[2016-11-25 07:56] LABS: ABG Base Excess -2.7 mEq/L (-2.0 to 3.0); ABG Oxygen Saturation 99 % (95-98); ABG PCO2 50 mmHg (35-45); ABG PH 7.29 pH Units (7.32-7.45); ABG PO2 176 mmHg (85-104); ABG TCO2 25.5 mEq/L (20-26)
[2016-11-25 07:59] LABS: Blood Gas FiO2 80 %
[2016-11-25 08:14] LABS: Basophils # 0.1 K/mcL (0.0-0.2); Basophils % 0.3 %; Eosinophils % 0.1 %; Hematocrit 29.8 % (35.3-44.9); Hemoglobin 9.1 g/dL (11.5-15.4); Immature Granulocytes % 0.5 % (0-4); Lymphocytes # 0.6 K/mcL (0.6-4.6); Lymphocytes % 2.7 %; Mean Corpuscular HGB Conc 30.5 g/dL (31.6-35.5); Mean Corpuscular Hemoglobin 30.3 pg (28.0-33.3); Mean Corpuscular Volume 99.3 fL (83.0-100.0); Mean Platelet Volume 9.5 fL (9.4-12.4); Monocytes # 1.4 K/mcL (0.0-1.3); Monocytes % 6.6 %; Platelet Count 368 K/mcL (140-400); Red Cell Distribution Width 14.8 % (11.5-14.5); Segmented Neutrophils % 89.8 %
[2016-11-25 08:51] LABS: Calcium 9.4 mg/dL (8.6-10.8); Potassium 3.9 mEq/L (3.5-4.5)
[2016-11-25] MEDS: Piperacillin/Tazobactam 3.375 GM in D5% in Water (Mini-Bag+) 100 ML IVPB SCH ×2 (09:13→17:35)
[2016-11-25] MEDS: hydrALAZINE 25 MG TABLET PO SCH ×3 (10:25→21:11)
[2016-11-25] MEDS: Isosorbide MONOnitrate (24 HR) 60 MG TAB.ER.24H PO SCH (10:25)
[2016-11-25] MEDS: Sucralfate 1 GM TABLET PO SCH ×4 (10:25→21:47)
[2016-11-25] MEDS: Furosemide 40 MG TABLET PO SCH (10:26)
[2016-11-25] MEDS: Ascorbic Acid 500 MG TABLET PO SCH (10:26)
[2016-11-25] MEDS: Metoprolol XL (24 HR) Succ 25 MG TAB.ER.24H PO SCH (10:26)
[2016-11-25] MEDS: BuPROPion SR (12 HR) 100 MG TABLET PO SCH ×2 (10:26→21:47)
[2016-11-25] MEDS: Furosemide 40 MG/4 ML VIAL IVP SCH ×2 (11:43→17:40)
[2016-11-25] MEDS ORDERED: *HR* Metoprolol 5 MG/5 ML VIAL IVP SCH ×2 (12:00→15:30)
--- NOTE | 2016-11-25 12:03 | Internal Med Progress Note ---
Date of Encounter: 11/25/16 Time of Encounter: 12:01 - Assessment and plan (1) Acute respiratory failure Current Visit: Yes Status: Acute Assessment and plan: Patient has history of CHF, chest x-ray this morning shows bilateral vascular congestion. Bilateral crepitations on lung exam. Patient also vomited yesterday and this morning. Acute hypoxic respiratory failure most likely secondary to CHF versus aspiration pneumonia. Patient was placed on high flow oxygen, saturating 96% on 10 L. Patient was then transitioned to BiPAP,abg with mild respiratory acidosis ph of 7.29 and pco2 of 50. will keep NPO for now, continue BIPAP, lasix 40 IVstat and continue 40 IV bid. will also add IV zosyn to emperically cover for aspiratoion pneumonia Patient will be transferred to [facility] for closer monitoring. will order ECHO Qualifiers: Respiratory failure complication: hypoxia Qualified Code(s): J96.01 - Acute respiratory failure with hypoxia (2) Rib fracture Current Visit: Yes Status: Acute Assessment and plan: 1 patient experienced a mechanical fall from standing sustained 7-8-ninth rib fracture. Patient is very frail and has had several falls in the past few months. pain is much cntrolled with pain meds, however given vomiting multiple episodes and acute respiratory failure, will keep on morphine 1 mg for now. 2 PT OT following 3 manager social responsibility for discharge planning, patient and the family do not want her to go to [facility]. 4 fall precautions 5 incentive spirometry 6. DVT prophylaxis. Qualifiers: Encounter type: initial encounter Rib fracture type: single rib Fracture type: closed Laterality: left Qualified Code(s): S22.32XA - Fracture of one rib, left side, initial encounter for closed fracture (3) CHF (congestive heart failure) Current Visit: No Status: Chronic Assessment and plan: 1 LVEF 40-45% on last ECHO, will rpeeat today lasix has been increased for possible acute exacerbation Intake and output daily weight Qualifiers: Congestive heart failure type: systolic Congestive heart failure chronicity : chronic Qualified Code(s): I50.22 - Chronic systolic (congestive) heart failure (4) COPD (chronic obstructive pulmonary disease) Current Visit: No Status: Chronic Assessment and plan: 1 presently on bipap for acute respiratory failure 2 continue with bronchodilators Qualifiers: COPD type: emphysema Emphysema type: panlobular Qualified Code(s): J43.1 - Panlobular emphysema (5) CKD (chronic kidney disease) Current Visit: No Status: Chronic Assessment and plan: 1 we will continue to monitor creatinine 2 monitor intake and output daily weights 3 avoid nephrotoxins Qualifiers: Chronic kidney disease stage: stage 3 (moderate) Qualified Code(s): N18.3 - Chronic kidney disease, stage 3 (moderate) (6) Falls frequently Current Visit: No Status: Chronic - Subjective Interval history: seen at the bedside, reported y the nurse that she vomited last night and in the morning. Patient noted to be in respiratory distress saturating mid 80s, she was given Phenergan recently for vomiting, does wake up to verbal command but appears drowsy. Denies any chest pain for now. - Constitutional Vitals: Temp Pulse Resp BP Pulse Ox 98.8 F 98 25 134/68 96 11/25/16 11:30 11/25/16 11:30 11/25/16 11:30 11/25/16 11:30 11/25/16 11:30 General appearance: Present: A&O X 3 Exam: Neck supple. Chest bilateral crepitations, no wheezing. CVS S1-S2, no murmurs rubs or gallops. Abdomen soft, nontender, bowel sounds are present. Extremities no edema. Neuro appears drowsy but following commands, no focal neuro deficits. Internal Medicine: Result - Labs CBC & Chem 7: 11/25/16 07:58 11/25/16 07:58 Labs: Short CBC 11/25/16 Range/Units 07:58 WBC 21.2 H D (4.3-11.1) K/mcL Hgb 9.1 L (11.5-15.4) g/dL Hct 29.8 L (35.3-44.9) % Plt Count 368 (140-400) K/mcL Neutrophils # 19.0 H (1.6-8.9) K/mcL BMP 11/25/16 07:58 Sodium 141 Potassium 3.9 Chloride 106 Carbon Dioxide 24 BUN 44 H D Creatinine 1.26 H Glucose 99 Calcium 9.4 - ABG Interpretation ABG results: ABG ABG pH 7.29 pH Units (7.32-7.45) L 11/25/16 07:46 ABG pCO2 50 mmHg (35-45) H 11/25/16 07:46 ABG pO2 176 mmHg (85-104) H 11/25/16 07:46 ABG O2 Saturation 99 % (95-98) H 11/25/16 07:46 PT/INR, D-dimer PT 12.5 Seconds (9.4-12.1) H 11/22/16 15:11 - Impressions Impressions Chest X-Ray 11/25/16 07:37 IMPRESSION: 1. Pulmonary vascular congestion and suspected perihilar edema. Given new suspected trace left pleural effusion and mild cardiomegaly, congestive heart failure is suspected 2. New left lower lobe airspace opacity likely representing atelectasis. D/ / Earl Mckeon MD / Earl Mckeon MD Interpreting Provider: Earl Mckeon MD Consult Discharge Plan - Plan Referrals: Catrachito Coburn MD [Partnered Physician] - 12/02/16 3:00 pm
[2016-11-25] MEDS ORDERED: *HR* Morphine 2 MG/ML SYRINGE IVP PRN (15:25)
[2016-11-25] MEDS: Ondansetron 4 MG/2 ML VIAL IVP SCH ×2 (15:56→21:11)
[2016-11-25] MEDS ORDERED: Albuterol 2.5 MG/3 ML NEBULIZER ONE (17:06)
[2016-11-25] MEDS: Albuterol 2.5 MG/3 ML NEBULIZER IH PRN (17:14)
[2016-11-25] MEDS: *HR* HYDROmorphone (PF) 1 MG/ML SYRINGE IVP PRN (20:09)
[2016-11-25] MEDS: *HR* Metoprolol 5 MG/5 ML VIAL IVP SCH (21:10)
[2016-11-25] MEDS ORDERED: *HR* LORazepam 1 MG TABLET PO ONE (22:29)
[2016-11-25] MEDS: Melatonin 3 MG TABLET PO SCH (22:47)
[2016-11-26] MEDS: Albuterol 2.5 MG/3 ML NEBULIZER IH PRN ×3 (00:10→22:01)
[2016-11-26] MEDS: Piperacillin/Tazobactam 3.375 GM in D5% in Water (Mini-Bag+) 100 ML IVPB SCH ×4 (01:17→23:54)
[2016-11-26] MEDS: Ondansetron 4 MG/2 ML VIAL IVP SCH ×4 (03:50→21:41)
[2016-11-26 05:28] LABS: Calcium 8.7 mg/dL (8.6-10.8); Potassium 3.7 mEq/L (3.5-4.5)
[2016-11-26 05:38] LABS: Basophils % 0.2 %; Eosinophils # 0.1 K/mcL (0.0-0.6); Eosinophils % 0.5 %; Hematocrit 26.5 % (35.3-44.9); Immature Granulocytes % 0.7 % (0-4); Lymphocytes % 7.4 %; Mean Corpuscular HGB Conc 30.2 g/dL (31.6-35.5); Mean Corpuscular Hemoglobin 29.9 pg (28.0-33.3); Mean Corpuscular Volume 98.9 fL (83.0-100.0); Mean Platelet Volume 9.7 fL (9.4-12.4); Monocytes # 0.9 K/mcL (0.0-1.3); Monocytes % 6.8 %; Platelet Count 297 K/mcL (140-400); Red Blood Count 2.68 M/mcL (3.82-4.97); Red Cell Distribution Width 14.8 % (11.5-14.5); Segmented Neutrophils % 84.4 %
[2016-11-26] MEDS: *HR* Enoxaparin 40 MG/0.4 ML SYRINGE SQ SCH (06:49)
[2016-11-26] MEDS: *HR* LORazepam 1 MG TABLET PO PRN ×3 (08:57→21:41)
[2016-11-26] MEDS: Furosemide 40 MG/4 ML VIAL IVP SCH ×2 (09:08→16:11)
[2016-11-26] MEDS: BuPROPion SR (12 HR) 100 MG TABLET PO SCH ×2 (09:18→20:14)
[2016-11-26] MEDS: hydrALAZINE 25 MG TABLET PO SCH ×3 (09:24→20:13)
[2016-11-26] MEDS: Isosorbide MONOnitrate (24 HR) 60 MG TAB.ER.24H PO SCH (09:24)
[2016-11-26] MEDS: *HR* Metoprolol 5 MG/5 ML VIAL IVP SCH (09:24)
[2016-11-26] MEDS: Sucralfate 1 GM TABLET PO SCH ×4 (09:24→21:39)
[2016-11-26] MEDS: Metoprolol XL (24 HR) Succ 25 MG TAB.ER.24H PO SCH (09:26)
[2016-11-26] MEDS: Ascorbic Acid 500 MG TABLET PO SCH (09:26)
[2016-11-26] MEDS: Tiotropium 18 MCG inhalation IH SCH (09:59)
[2016-11-26] MEDS: Budesonide/Formoterol 160/4.5 MDI IH SCH ×2 (10:00→22:01)
--- NOTE | 2016-11-26 10:36 | Internal Med Progress Note ---
Date of Encounter: 11/26/16 Time of Encounter: 10:33 - Assessment and plan (1) Acute respiratory failure Current Visit: Yes Status: Acute Assessment and plan: Patient has history of CHF, repeat CXR shows worsening CHF , still requiring intermittent BIPAP support. lung exam sound better as compared to yest and patient looks much better than yesterday Acute hypoxic respiratory failure most likely secondary to CHF exacerbation versus aspiration pneumonia. continue lasix 40 IV bid, has not had much urine output, creatinine mild bump to 1.57, output of 200c yesterday continue IV zosyn to emperically cover for aspiratoion pneumonia, will order CT chest today. f/u ECHO results, will consult renal swallow eval, recommended mechanical altered diet. Qualifiers: Respiratory failure complication: hypoxia Qualified Code(s): J96.01 - Acute respiratory failure with hypoxia (2) Rib fracture Current Visit: Yes Status: Acute Assessment and plan: 1 patient experienced a mechanical fall from standing sustained 7-8-ninth rib fracture. Patient is very frail and has had several falls in the past few months. pain is much cntrolled with pain meds, however given DANIEL and acute respiratory failure,changed morhphine to dilaudid. 2 PT OT following 3 family do not want her to go to [facility]. 4 fall precautions 5 incentive spirometry 6. DVT prophylaxis. 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 Medical management recommended by cardiology at that time. continue IV lasix and BIPAP support, repeat CXR with worsening pulmonary edema, although atypical pneumonia is possible. will order CT chest. with DANIEL and decreased urine output despite lasix. consult renal. Intake and output daily weight Qualifiers: Congestive heart failure type: systolic Congestive heart failure chronicity : chronic Qualified Code(s): I50.22 - Chronic systolic (congestive) heart failure (4) COPD (chronic obstructive pulmonary disease) Current Visit: No Status: Chronic Assessment and plan: 1 presently on bipap for acute respiratory failure 2 continue with bronchodilators Qualifiers: COPD type: emphysema Emphysema type: panlobular Qualified Code(s): J43.1 - Panlobular emphysema (5) Falls frequently Current Visit: No Status: Chronic - Subjective Interval history: seen at the bedside, much alert and awake this morning and is communicating well but still out of breath and is needing BIPAP support intermittently. Denies any chest pain , no cough or vomiting. - Constitutional Vitals: Temp Pulse Resp BP Pulse Ox 98.9 F 78 23 150/66 97 11/26/16 06:58 11/26/16 06:58 11/26/16 06:58 11/26/16 06:58 11/26/16 06:58 General appearance: Present: A&O X 3 Exam: neck- supple chest- leftside sounds much clear today, creptns on the right side, no wheezing CVS-s 1 and s2, no mr/g/ abd- soft, non tender, bs are present ext- no edema Internal Medicine: Result - Labs CBC & Chem 7: 11/26/16 05:03 11/26/16 05:03 Labs: Short CBC 11/26/16 Range/Units 05:03 WBC 13.0 H (4.3-11.1) K/mcL Hgb 8.0 L (11.5-15.4) g/dL Hct 26.5 L (35.3-44.9) % Plt Count 297 (140-400) K/mcL Neutrophils # 11.0 H (1.6-8.9) K/mcL BMP 11/26/16 05:03 Sodium 143 Potassium 3.7 Chloride 108 Carbon Dioxide 25 BUN 57 H D Creatinine 1.57 H Glucose 86 Calcium 8.7 - ABG Interpretation ABG results: ABG ABG pH 7.29 pH Units (7.32-7.45) L 11/25/16 07:46 ABG pCO2 50 mmHg (35-45) H 11/25/16 07:46 ABG pO2 176 mmHg (85-104) H 11/25/16 07:46 ABG O2 Saturation 99 % (95-98) H 11/25/16 07:46 PT/INR, D-dimer PT 12.5 Seconds (9.4-12.1) H 11/22/16 15:11 - Impressions Impressions Retroperitoneum Ultrasound 11/25/16 17:00 IMPRESSION: Limited exam with nonvisualization of the left kidney. No right hydronephrosis. D/ / Yancy Verduzco MD / Yancy Verduzco MD Interpreting Provider: Yancy Verduzco MD Chest X-Ray 11/26/16 09:06 IMPRESSION: Cardiomegaly with trace bilateral pleural effusions and worsening patchy airspace disease in both lungs suggesting worsening pulmonary edema and CHF. Atypical pneumonia is in the differential. D/ / Moisés Reyes MD / Moisés Reyes MD Interpreting Provider: Moisés Reyes MD Consult Discharge Plan - Plan Referrals: Catrachito Coburn MD [Partnered Physician] - 12/02/16 3:00 pm
[2016-11-26] MEDS: *HR* OxyCODONE Immed Rel 5 MG TABLET PO PRN (14:08)
[2016-11-26] MEDS: *HR* HYDROmorphone (PF) 1 MG/ML SYRINGE IVP PRN (18:39)
[2016-11-26] MEDS: Melatonin 3 MG TABLET PO SCH (20:13)
[2016-11-27] MEDS: *HR* HYDROmorphone (PF) 1 MG/ML SYRINGE IVP PRN ×2 (00:51→23:04)
[2016-11-27] MEDS: Ondansetron 4 MG/2 ML VIAL IVP SCH ×4 (03:02→21:04)
[2016-11-27] MEDS: *HR* LORazepam 1 MG TABLET PO PRN ×3 (03:17→19:42)
[2016-11-27] MEDS: *HR* Enoxaparin 30 MG/0.3 ML SYRINGE SQ SCH (05:27)
[2016-11-27] MEDS ORDERED: *HR* Metoprolol 5 MG/5 ML VIAL IVP ONE (06:15)
[2016-11-27] MEDS ORDERED: 0.9 % Sodium Chloride 1,000 ML ONE (06:29)
[2016-11-27] MEDS: Furosemide 40 MG/4 ML VIAL IVP SCH (07:36)
[2016-11-27] MEDS: BuPROPion SR (12 HR) 100 MG TABLET PO SCH ×2 (07:47→19:43)
[2016-11-27] MEDS: hydrALAZINE 25 MG TABLET PO SCH ×3 (07:47→19:44)
[2016-11-27] MEDS: Piperacillin/Tazobactam 3.375 GM in D5% in Water (Mini-Bag+) 100 ML IVPB SCH ×3 (07:48→23:17)
[2016-11-27] MEDS: Sucralfate 1 GM TABLET PO SCH ×4 (07:48→21:04)
[2016-11-27] MEDS: Metoprolol XL (24 HR) Succ 25 MG TAB.ER.24H PO SCH (07:48)
[2016-11-27] MEDS: Isosorbide MONOnitrate (24 HR) 60 MG TAB.ER.24H PO SCH (07:48)
[2016-11-27] MEDS: Ascorbic Acid 500 MG TABLET PO SCH (07:48)
[2016-11-27 08:58] LABS: Basophils # 0.1 K/mcL (0.0-0.2); Basophils % 0.4 %; Eosinophils # 0.2 K/mcL (0.0-0.6); Eosinophils % 1.8 %; Hematocrit 29.3 % (35.3-44.9); Hemoglobin 8.9 g/dL (11.5-15.4); Lymphocytes # 0.9 K/mcL (0.6-4.6); Lymphocytes % 7.2 %; Mean Corpuscular HGB Conc 30.4 g/dL (31.6-35.5); Mean Corpuscular Hemoglobin 29.9 pg (28.0-33.3); Mean Corpuscular Volume 98.3 fL (83.0-100.0); Mean Platelet Volume 9.1 fL (9.4-12.4); Monocytes # 1.1 K/mcL (0.0-1.3); Monocytes % 8.8 %; Platelet Count 328 K/mcL (140-400); Red Blood Count 2.98 M/mcL (3.82-4.97); Red Cell Distribution Width 14.8 % (11.5-14.5); Segmented Neutrophils % 80.8 %
[2016-11-27 09:11] LABS: Calcium 9.4 mg/dL (8.6-10.8); Potassium 3.2 mEq/L (3.5-4.5)
--- NOTE | 2016-11-27 09:42 | Cardiology Consult Note ---
Date of Encounter: 11/27/16 Time of Encounter: 09:40 Assessment and Plan (1) Atrial fibrillation with RVR Current Visit: Yes Status: Acute New onset A-Fib RVR, could be driven by respiratory status and being dry s/p IV Lasix. Pt currently on Cardizem gtt at 15mg/hr, bolus just given. On Toprol XL 25mg daily. HR 130s at bedside. Will stop Cozaar to allow BP room and increase BB as BP tolerates. CHADSVASC score is 5 (Age, HTN, Female, CAD). Pt has frequent falls and recent GI earlier this month with HGB in 6 range at that time. Due to these factors, recommend ASA only for anticoagulation. K 3.2--replace. Check Mag and TSH. Will continue to follow. Echo shows EF has improved to 60%, moderate diastolic dysfunction. (2) CAD (coronary artery disease) Current Visit: No Status: Acute [facility] 01/2017 without intervention. ASA, Statin, BB. Qualifiers: Coronary Disease-Associated Artery/Lesion type: [place] artery [place] vs. transplanted heart: [place] heart Associated angina: without angina Qualified Code(s): I25.10 - Atherosclerotic heart disease of [place] coronary artery without angina pectoris (3) Acute respiratory failure Current Visit: Yes Status: Acute Requiring intermittent bipap. CXR repeated showed worsening CHF. Chest CT could not rule out PNA. Management per primary team. Likely contributing to A-Fib with RVR. Qualifiers: Respiratory failure complication: hypoxia Qualified Code(s): J96.01 - Acute respiratory failure with hypoxia (4) Diastolic CHF, acute on chronic Current Visit: No Status: Chronic BNP only mildly elevated 338. Pt does not appear volume overloaded on exam--received IV Lasix. Now receiving IV fluids. Echo shows preserved EF 60% with moderate diastolic dysfunction. Recommend strict I/Os, daily weights, Na and fluid restriction. Discussion w patient/family: The assessment and plan as outlined above was discussed with the patient and/or family members who expressed understanding and agreement. All questions were answered. Thank you for involving us in the care of your patient. Please call with any questions. I will discuss all the above with Dr. Delgado and make changes as necessary. History of Present Illness Consult date: 11/27/16 Requesting physician: Sp Lynch Consult reason: AFib RVR Chief complaint: Dyspnea History of present illness: Ms. Khalil is a 81 year old female with PMH of COPD oxygen dependent, previous systolic CHF, dementia, hypertension, GERD, hyperlipidemia, chronic anemia, anxiety/depression, recurrent falls, CAD. Pt presented after a fall. She was reportedly attempting to ambulate using her walker and tried to weigh herself on a scale, lost her balance and fell backwards landing on her left side. She was brought to the ER for evaluation chest x-ray did reveal ninth rib fracture. Repeat CXR showed worsening CHF. Chest CT shows edema and possible PNA. Pt has since gone into A-Fib with RVR, a new diagnosis. HR currently 130s at bedside on cardizem gtt at 15mg/hr. Breathing is tenuous. She denies chest pain or palpitations. Echo resulted--EF 60% (improved from previous), moderate diastolic dysfunction, severely dilated LA, mild AR and . Severe phtn. LHC 2015 showed occluded RCA with mature left to right collaterals filling the PDA. Intermediate 50-60% mid LAD stenosis. Mild-moderately elevated LVEDP. Past Med Surg Social Fam HX - Past Medical History Medical history: arthritis, CHF, COPD, coronary artery disease, dementia, GERD, hyperlipidemia, hypertension, myocardial infarction, osteoporosis, peripheral artery disease, renal disease, other Psychiatric history: anxiety, depression - Past Surgical History Surgical History: cholecystectomy, hysterectomy, orthopedic, other, BHARATHI/BSO, other - Social History Smoking Status: Former smoker Smokeless Tobacco Status: No Alcohol use: none Drug use: none - Family History Father Living Status: Hx Family Cardiac Disorders: Yes Hx Family Cancer: Yes (RCC) Mother Living Status: Hx Family Cardiac Disorders: Yes Hx Family Respiratory Disorders: No Hx Family Cancer: Yes (bladder cancer) Hx Family GI Disorders: No Hx Family Genitourinary Disorders: No Hx Family Endocrine Disorder: No Hx Family Musculoskeletal Disorders: No Hx Family Neuromuscular Disorders: No Hx Family Neurologic Disorders: No Medications and Allergies Budesonide/Formoterol 160/4.5 [Symbicort] 2 puff IH BID 02/20/15 [History] Clopidogrel [Plavix] 75 mg PO DAILY 02/20/15 [History] Tiotropium [Spiriva] 18 mcg IH DAILY 02/20/15 [History] Donepezil [Aricept] 10 mg PO HS 04/03/15 [History] Alendronate Sodium [Fosamax] 70 mg PO MO 07/09/15 [History] Ascorbate Calcium [Vitamin C] 500 mg PO DAILY 07/09/15 [History] Isosorbide MONOnitrate (24 HR) [Imdur] 60 mg PO DAILY 07/09/15 [History] Losartan [Cozaar] 100 mg PO DAILY 07/09/15 [History] Metoprolol XL (24 HR) Succ [Toprol Xl] 25 mg PO DAILY 07/09/15 [History] Simvastatin [Zocor] 40 mg PO HS 07/09/15 [History] Albuterol Neb [Proventil Neb] 2.5 mg IH TID 07/04/16 [History] HYDROcodone/Acet 7.5/325 mg [[place] 7.5-325 mg] 1 tab PO Q3H PRN #240 tablet 11/12 [Rx] Melatonin 10 mg PO HS 08/12/16 [History] Albuterol Sulfate [Proair Hfa] 2 puff IH Q4H PRN 10/20/16 [History] Ferrous Sulfate 325 mg PO DAILY 10/20/16 [History] Hydralazine HCl 50 mg PO TID 10/20/16 [History] Nitroglycerin [Nitrostat] 0.4 mg SL Q5M PRN 10/20/16 [History] Oxygen 3 l NS CONT 10/20/16 [History] Sertraline [Zoloft] 100 mg PO DAILY 10/20/16 [History] buPROPion HCl [Bupropion HCl Sr] 200 mg PO BID 10/20/16 [History] Furosemide [Lasix] 60 mg PO DAILY #30 tablet 10/23/16 [Rx] Pantoprazole Sodium [Protonix] 40 mg PO BID #60 tablet. 11/10/16 [Rx] Sucralfate [Carafate] 1 gm PO QIDAC #120 tablet 11/10/16 [Rx] LORazepam [Ativan] 1 mg PO Q6H PRN 11/22/16 [History] Potassium Chloride [Klor-Con 10] 10 meq PO BID 11/22/16 [History] Allergies citalopram [From Celexa] Allergy (Verified 11/22/16 16:12) Difficulty Breathing amlodipine [From Norvasc] Adverse Reaction (Verified 11/22/16 16:12) Difficulty Breathing also swelling haloperidol [From Haldol] Adverse Reaction (Verified 11/22/16 16:12) Hallucinating risperidone Adverse Reaction (Verified 11/17/16 10:44) See Comments AMS roflumilast [From Daliresp] Adverse Reaction (Verified 11/22/16 16:12) Difficulty Breathing also rash All Systems Review: A 10-system review of systems was performed and is negative for pertinent findings except as documented above in the HPI. - Constitutional Constitutional: frequent falls - Cardiovascular Cardiovascular: as per HPI, dyspnea at rest, dyspnea on exertion, leg edema - Respiratory Respiratory: dyspnea Physical Examination Vital Signs, Last 4 Hours Temp Pulse Resp BP Pulse Ox 11/27/16 07:30 98.4 F 140 22 104/80 96 11/27/16 07:15 98.4 F 140 22 104/80 96 Vital Signs Temp Pulse Resp BP Pulse Ox 11/27/16 07:30 98.4 F 140 22 104/80 96 11/27/16 07:15 98.4 F 140 22 104/80 96 11/27/16 03:28 97.6 F 93 24 151/73 92 11/27/16 00:02 98.1 F 99 24 96 11/26/16 22:04 24 87 11/26/16 18:23 99.7 F H 103 28 106/62 93 11/26/16 16:49 97.9 F 84 24 155/71 96 11/26/16 16:05 97.9 F 84 24 155/71 96 11/26/16 11:56 98.1 F 83 20 149/66 97 11/26/16 09:58 30 96 Intake and Output 11/26/16 11/27/16 11/27/16 23:59 07:59 15:59 Intake Total 100 / 100 468.75 / 468.75 Output Total 650 / 650 475 / 475 Balance -550 / -550 -6.25 / -6.25 Intake: IV Fluids 100 / 100 108.75 / 108.75 Cardizem 125 MG In 8.75 / 8.75 Dextrose 5% 100 ML @ 5 MG /HR 5 mls/hr IVC .Q24H [facility] Rx#:[id number] Zosyn 3.375 GM In 100 / 100 100 / 100 Dextrose 5% (Minibag+) 100 ML 100 ML @ 25 mls/hr IVPB Q8HR [facility] Rx#: [id number] Oral 360 / 360 Output: Catheter 650 / 650 475 / 475 Other: Weight 62.1 kg Blood Glucose* 82 111 Patient Weight 11/27/16 23:59 Weight 62.1 kg General: Other (tenuous breathing ) HEENT: Atraumatic, Normocephaly Neck: Normal carotid pulses Cardiac: Other (irregularly irregular) Lungs: Other (rhonchi throughout) Neuro: No focal deficits noted Abdomen: Soft, Non-Tender Skin: No rashes noted on visualized skin Musculoskeletal: No Chest Wall Tenderness Extremities: No Clubbing, No Cyanosis, No Edema, Normal Pulses Results 11/27/16 08:44 11/27/16 08:44 Lab Results 11/26/16 11/27/16 11/27/16 05:03 08:44 08:44 WBC 12.3 H Hgb 8.9 L Hct 29.3 L Plt Count 328 Sodium 145 Potassium 3.2 L Chloride 109 Carbon Dioxide 28 BUN 50 H Creatinine 1.25 H Glucose 110 H Calcium 9.4 B-Natriuretic Peptide 338 H Short CBC 11/27/16 Range/Units 08:44 WBC 12.3 H (4.3-11.1) K/mcL Hgb 8.9 L (11.5-15.4) g/dL Hct 29.3 L (35.3-44.9) % Plt Count 328 (140-400) K/mcL Neutrophils # 10.0 H (1.6-8.9) K/mcL BMP 11/27/16 Range/Units 08:44 Sodium 145 (136-145) mEq/L Potassium 3.2 L (3.5-4.5) mEq/L Chloride 109 (98-109) mEq/L Carbon Dioxide 28 (19-29) mEq/L BUN 50 H (7-20) mg/dL Creatinine 1.25 H (0.57-1.11) mg/dL Glucose 110 H (70-99) mg/dL Calcium 9.4 (8.6-10.8) mg/dL Impressions Chest CT 11/26/16 10:25 IMPRESSION: Lower lobe consolidation, atelectasis and/or pneumonia. Interlobular septal thickening is present suggesting a component interstitial edema. There are several new focal areas of ground-glass opacity in the right upper lobe which could either represent asymmetric edema or pneumonia. Left apical and right middle lobe noncalcified masses. Neoplasm should be considered as they have increased in size since prior studies. D/ / Noelle Alas Cha, MD / Noelle Alas Cha, MD Interpreting Provider: Noelle Alas Cha, MD Active Medications Acetaminophen (Tylenol) 650 mg PO Q6HR PRN PRN Reason: Mild Pain (1-3) Stop: 05/24/17 18:05 Last Admin: 11/24/16 20:36 Dose: 650 mg Albuterol Sulfate (Proventil Neb) 2.5 mg IH [id number] PRN; Protocol PRN Reason: Shortness Of Breath/Wheezing Stop: 05/27/17 17:05 Last Admin: 11/26/16 22:01 Dose: 2.5 mg Ascorbic Acid (Vitamin C) 500 mg PO DAILY KAMRAN Stop: 05/25/17 09:01 Last Admin: 11/27/16 07:48 Dose: 500 mg Budesonide/Formoterol Fumarate (Symbicort) 2 puff IH BIDRESP KAMRAN PRN Reason: Protocol Stop: 05/24/17 22:01 Last Admin: 11/26/16 22:01 Dose: 2 puff Bupropion HCl (Wellbutrin Sr) 200 mg PO BID KAMRAN Stop: 05/24/17 21:01 Last Admin: 11/27/16 07:47 Dose: 200 mg Clopidogrel Bisulfate (Plavix) 75 mg PO DAILY KAMRAN Stop: 05/25/17 09:01 Last Admin: 11/27/16 07:47 Dose: 75 mg Docusate Sodium (Colace) 100 mg PO BID KAMRAN Stop: 05/24/17 21:01 Last Admin: 11/27/16 07:48 Dose: 100 mg Donepezil HCl (Aricept) 10 mg PO HS KAMRAN Stop: 05/24/17 21:01 Last Admin: 11/26/16 20:13 Dose: 10 mg Enoxaparin Sodium (Lovenox) 30 mg SQ 0600 KAMRAN PRN Reason: Protocol Stop: 05/29/17 06:01 Last Admin: 11/27/16 05:27 Dose: 30 mg Ferrous Sulfate (Ferrous Sulfate) 325 mg PO DAILY KAMRAN Stop: 05/25/17 09:01 Last Admin: 11/27/16 07:48 Dose: 325 mg Furosemide (Lasix) 40 mg IVP BIDDIURETIC KAMRAN Stop: 05/27/17 10:01 Last Admin: 11/27/16 07:36 Dose: 40 mg Guaifenesin (Mucinex) 600 mg PO BID KAMRAN Stop: 05/25/17 09:01 Last Admin: 11/27/16 07:48 Dose: 600 mg Hydralazine HCl (Hydralazine) 50 mg PO TID KAMRAN Stop: 05/24/17 21:01 Last Admin: 11/27/16 07:47 Dose: 50 mg Hydralazine HCl (Hydralazine) 5 mg IVP Q10MIN PRN PRN Reason: systolic bp>180 Stop: 05/27/17 12:12 Hydromorphone HCl (Dilaudid) 1 mg IVP Q4HR PRN PRN Reason: Severe Pain Stop: 05/27/17 16:11 Last Admin: 11/27/16 00:51 Dose: 1 mg Piperacillin Sod/Tazobactam (Sod 3.375 gm/ Dextrose) 100 mls @ 25 mls/hr IVPB Q8HR KAMRAN PRN Reason: Protocol Stop: 05/27/17 08:01 Last Admin: 11/27/16 07:48 Dose: 25 mls/hr Diltiazem HCl 125 mg/ Dextrose 125 mls @ 5 mls/hr IVC .Q24H KAMRAN PRN Reason: 5 MG/HR Stop: 05/29/17 06:01 Last Infusion: 11/27/16 07:45 Dose: 10 mg/hr, 10 mls/hr Isosorbide Mononitrate (Imdur) 60 mg PO DAILY KAMRAN Stop: 05/25/17 09:01 Last Admin: 11/27/16 07:48 Dose: 60 mg Lidocaine HCl (Lidoderm 5% Patch) 1 each TP DAILY@2200 KAMRAN Stop: 05/25/17 22:01 Last Admin: 11/26/16 21:41 Dose: 1 each Lorazepam (Ativan) 2 mg PO Q6H PRN PRN Reason: Anxiety Stop: 05/24/17 18:10 Last Admin: 11/27/16 09:45 Dose: 2 mg Losartan Potassium (Cozaar) 50 mg PO DAILY KAMRAN PRN Reason: Protocol Stop: 05/25/17 09:01 Last Admin: 11/25/16 10:25 Dose: Not Given Melatonin (Melatonin) 9 mg PO HS [facility] Stop: 05/24/17 21:01 Last Admin: 11/26/16 20:13 Dose: 9 mg Metoprolol Succinate (Toprol Xl) 25 mg PO DAILY [facility] Stop: 05/25/17 09:01 Last Admin: 11/27/16 07:48 Dose: 25 mg Naloxone HCl (Narcan) 0.4 mg IVP Q2MIN PRN PRN Reason: Opioid Reversal Stop: 05/24/17 18:05 Omeprazole (Prilosec) 20 mg PO BID [facility] Stop: 05/24/17 21:01 Last Admin: 11/27/16 07:47 Dose: 20 mg Ondansetron HCl (Zofran) 4 mg IVP Q6H [facility] Stop: 05/27/17 15:31 Last Admin: 11/27/16 07:37 Dose: 4 mg Oxycodone HCl (Roxicodone) 5 mg PO Q6HR PRN PRN Reason: Pain Stop: 05/27/17 15:25 Last Admin: 11/26/16 14:08 Dose: 5 mg Promethazine HCl (Phenergan) 12.5 mg IVP ONCE PRN PRN Reason: Nausea And Vomiting Stop: 05/27/17 07:08 Last Admin: 11/25/16 07:15 Dose: 12.5 mg Sertraline HCl (Zoloft) 100 mg PO DAILY [facility] Stop: 05/25/17 09:01 Last Admin: 11/27/16 07:48 Dose: 100 mg Simvastatin (Zocor) 40 mg PO HS [facility] PRN Reason: Protocol Stop: 05/24/17 21:01 Last Admin: 11/26/16 20:13 Dose: 40 mg Sucralfate (Carafate) 1 gm PO QIDAC [facility] Stop: 05/24/17 22:01 Last Admin: 11/27/16 07:48 Dose: 1 gm Tiotropium [place] (Spiriva) 18 mcg IH DAILY KAMRAN PRN Reason: Protocol Stop: 05/25/17 09:01 Last Admin: 07/01/17 09:59 Dose: Not Given - Imaging and Cardiology Echo: report reviewed Cardiac cath: report reviewed - EKG Interpretation EKG results cardiology: personally reviewed (Avani-Siomara RVR) Consult Discharge Plan - Plan Referrals: Catrachito Coburn MD [Partnered Physician] - 12/02/16 3:00 pm
[2016-11-27] MEDS: Budesonide/Formoterol 160/4.5 MDI IH SCH ×3 (11:16→22:01)
[2016-11-27] MEDS: Tiotropium 18 MCG inhalation IH SCH (11:18)
--- NOTE | 2016-11-27 13:45 | Internal Med Progress Note ---
Date of Encounter: 11/27/16 Time of Encounter: 13:43 - Assessment and plan (1) Acute respiratory failure Current Visit: Yes Status: Acute Assessment and plan: Patient has history of CHF, repeat CXR shows worsening CHF , currently tolerating 4-5 l of o2 via nasal cannula lung exam sound better as compared to yest. Acute hypoxic respiratory failure most likely secondary to CHF exacerbation versus aspiration pneumonia. CT chest shows possible flluid but cannot rule out pneumonia continue IV zosyn to emperically cover for aspiratoion pneumonia. hold lasix today she looks dry and has afib RVR. swallow eval, recommended mechanical altered diet. Qualifiers: Respiratory failure complication: hypoxia Qualified Code(s): J96.01 - Acute respiratory failure with hypoxia (2) Rib fracture Current Visit: Yes Status: Acute Assessment and plan: 1 patient experienced a mechanical fall from standing sustained 7-8-ninth rib fracture. Patient is very frail and has had several falls in the past few months. pain is much cntrolled with pain meds, however given DANIEL and acute respiratory failure,changed morhphine to dilaudid as needed 2 PT OT following 3 [facility] 4 fall precautions 5 incentive spirometry 6. DVT prophylaxis. 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 Medical management recommended by cardiology at that time. holding lasix for now, given dehydration. DANIEL is better, negative balance yest, chest sounds relatively better today. Intake and output daily weight Qualifiers: Congestive heart failure type: systolic Congestive heart failure chronicity : chronic Qualified Code(s): I50.22 - Chronic systolic (congestive) heart failure (4) COPD (chronic obstructive pulmonary disease) Current Visit: No Status: Chronic Assessment and plan: 1 presently on bipap for acute respiratory failure 2 continue with bronchodilators Qualifiers: COPD type: emphysema Emphysema type: panlobular Qualified Code(s): J43.1 - Panlobular emphysema (5) Falls frequently Current Visit: No Status: Chronic - Subjective Interval history: seen at the bedside, much alert and awake this morning and is communicating well ,needing BIPAP support intermittently. Denies any chest pain , no cough or vomiting, making urine today. - Constitutional Vitals: Temp Pulse Resp BP Pulse Ox 98.4 F 120 16 115/65 89 11/27/16 11:45 11/27/16 11:45 11/27/16 11:45 11/27/16 11:45 11/27/16 11:45 General appearance: Present: A&O X 3 Exam: neck- supple chest- b/l occ creptns, no wheezing cvs-s1 and s2, no m/r/g abd-soft, non tender, bs are present , has a hernia which is reducible. ext- no edema neuro- awake and alert, confused at times but that is her baseline Internal Medicine: Result - Labs CBC & Chem 7: 11/27/16 08:44 11/27/16 08:44 Labs: Short CBC 11/27/16 Range/Units 08:44 WBC 12.3 H (4.3-11.1) K/mcL Hgb 8.9 L (11.5-15.4) g/dL Hct 29.3 L (35.3-44.9) % Plt Count 328 (140-400) K/mcL Neutrophils # 10.0 H (1.6-8.9) K/mcL BMP 11/27/16 08:44 Sodium 145 Potassium 3.2 L Chloride 109 Carbon Dioxide 28 BUN 50 H Creatinine 1.25 H Glucose 110 H Calcium 9.4 - ABG Interpretation ABG results: ABG ABG pH 7.29 pH Units (7.32-7.45) L 11/25/16 07:46 ABG pCO2 50 mmHg (35-45) H 11/25/16 07:46 ABG pO2 176 mmHg (85-104) H 11/25/16 07:46 ABG O2 Saturation 99 % (95-98) H 11/25/16 07:46 PT/INR, D-dimer PT 12.5 Seconds (9.4-12.1) H 11/22/16 15:11 - Impressions Impressions Chest CT 11/26/16 10:25 IMPRESSION: Lower lobe consolidation, atelectasis and/or pneumonia. Interlobular septal thickening is present suggesting a component interstitial edema. There are several new focal areas of ground-glass opacity in the right upper lobe which could either represent asymmetric edema or pneumonia. Left apical and right middle lobe noncalcified masses. Neoplasm should be considered as they have increased in size since prior studies. D/ / Noelle Alas Cha, MD / Noelle Alas Cha, MD Interpreting Provider: Noelle Alas Cha, MD Consult Discharge Plan - Plan Referrals: Catrachito Coburn MD [Partnered Physician] - 12/02/16 3:00 pm
[2016-11-27] MEDS: *HR* OxyCODONE Immed Rel 5 MG TABLET PO PRN (15:00)
[2016-11-27] MEDS: Melatonin 3 MG TABLET PO SCH (19:42)
[2016-11-28] MEDS: Ondansetron 4 MG/2 ML VIAL IVP SCH ×4 (03:11→21:42)
[2016-11-28] MEDS: *HR* LORazepam 1 MG TABLET PO PRN ×2 (04:08→19:56)
[2016-11-28] MEDS: *HR* Enoxaparin 30 MG/0.3 ML SYRINGE SQ SCH (06:28)
[2016-11-28] MEDS: Budesonide/Formoterol 160/4.5 MDI IH SCH ×2 (08:10→20:52)
[2016-11-28] MEDS: Tiotropium 18 MCG inhalation IH SCH (08:14)
[2016-11-28] MEDS: *HR* OxyCODONE Immed Rel 5 MG TABLET PO PRN ×2 (08:26→17:56)
[2016-11-28] MEDS: Ascorbic Acid 500 MG TABLET PO SCH (08:27)
[2016-11-28] MEDS: hydrALAZINE 25 MG TABLET PO SCH ×3 (08:27→19:56)
[2016-11-28] MEDS: Metoprolol XL (24 HR) Succ 50 MG TAB.ER.24H PO SCH (08:27)
[2016-11-28] MEDS: BuPROPion SR (12 HR) 100 MG TABLET PO SCH ×2 (08:28→19:56)
[2016-11-28] MEDS: Sucralfate 1 GM TABLET PO SCH ×4 (08:28→19:56)
[2016-11-28] MEDS: Piperacillin/Tazobactam 3.375 GM in D5% in Water (Mini-Bag+) 100 ML IVPB SCH (08:28)
[2016-11-28] MEDS: Isosorbide MONOnitrate (24 HR) 60 MG TAB.ER.24H PO SCH (08:29)
[2016-11-28 08:44] LABS: Basophils % 0.4 %; Eosinophils # 0.4 K/mcL (0.0-0.6); Eosinophils % 3.6 %; Hematocrit 29.2 % (35.3-44.9); Hemoglobin 8.8 g/dL (11.5-15.4); Immature Granulocytes % 0.6 % (0-4); Lymphocytes % 10.1 %; Mean Corpuscular HGB Conc 30.1 g/dL (31.6-35.5); Mean Corpuscular Hemoglobin 29.8 pg (28.0-33.3); Mean Platelet Volume 9.5 fL (9.4-12.4); Monocytes # 0.7 K/mcL (0.0-1.3); Monocytes % 7.4 %; Neutrophils # 7.5 K/mcL (1.6-8.9); Platelet Count 341 K/mcL (140-400); Red Blood Count 2.95 M/mcL (3.82-4.97); Red Cell Distribution Width 14.8 % (11.5-14.5); Segmented Neutrophils % 77.9 %
[2016-11-28 09:00] LABS: Calcium 9.2 mg/dL (8.6-10.8); Potassium 3.2 mEq/L (3.5-4.5)
--- NOTE | 2016-11-28 09:38 | Cardiology Progress Note ---
Date of Encounter: 11/28/16 Time of Encounter: 09:36 Assessment and Plan (1) Atrial fibrillation with RVR Current Visit: Yes Status: Acute New onset A-Fib RVR, could be driven by respiratory status and being dry s/p IV Lasix. Pt currently on Cardizem gtt at 15mg/hr, HR better controlled today. 12 hr tele AVG HR 100bpm. Will transition to PO Cardizem CD 360mg daily. Stop cardizem gtt 2 hours after. Increased Toprol XL to 50mg daily. Stopped Cozaar to allow BP room and increase BB as BP tolerates. Can also decrease Hydralazine if necessary, but currently BP tolerating. CHADSVASC score is 5 (Age, HTN, Female, CAD). Pt has frequent falls and recent GI earlier this month with HGB in 6 range at that time. Due to these factors, recommend ASA only for anticoagulation. K 3.2--replace. Check Mag and TSH. Echo shows EF has improved to 60%, moderate diastolic dysfunction. With pt's suspected COPD and current respiratory status, okay with AVG HR low 100s. Recommend pulmonology consult if warranted. Cardiology signing off. Reconsult PRN. Follow-up as outpt. Will coordinate. (2) CAD (coronary artery disease) Current Visit: No Status: Acute [facility] 01/2017 without intervention. ASA, Statin, BB. Qualifiers: Coronary Disease-Associated Artery/Lesion type: resighini artery [place] vs. transplanted heart: resighini heart Associated angina: without angina Qualified Code(s): I25.10 - Atherosclerotic heart disease of resighini coronary artery without angina pectoris (3) Acute respiratory failure Current Visit: Yes Status: Acute Requiring intermittent bipap. CXR repeated showed worsening CHF. Chest CT could not rule out PNA. Management per primary team. Likely contributing to A-Fib with RVR. Pt euvolemic on exam. Qualifiers: Respiratory failure complication: hypoxia Qualified Code(s): J96.01 - Acute respiratory failure with hypoxia (4) Diastolic CHF, acute on chronic Current Visit: No Status: Chronic BNP only mildly elevated 338. Pt does not appear volume overloaded on exam. Echo shows preserved EF 60% with moderate diastolic dysfunction. Recommend strict I/Os, daily weights, Na and fluid restriction. Discussion w patient/family: The assessment and plan as outlined above was discussed with the patient and/or family members who expressed understanding and agreement. All questions were answered. Thank you for involving us in the care of your patient. Please call with any questions. I will discuss all the above with Dr. Delgado and make changes as necessary. Subjective Principal diagnosis: A-Fib RVR, respiratory failure Interval history: HR improved since yesterday, 12 hr tele AVG HR 100, A-Fib. Pt still short of breath, but appears improved from yesterday. Reports pain at rib fx sites, but denies chest pain or palpitations. Objective Vital Signs, Last 4 Hours Temp Pulse Resp BP Pulse Ox 11/28/16 08:10 18 92 11/28/16 06:57 98.7 F 97 18 124/66 94 Vital Signs Temp Pulse Resp BP Pulse Ox 11/28/16 08:10 18 92 11/28/16 06:57 98.7 F 97 18 124/66 94 11/28/16 00:06 97.8 F 115 18 128/65 90 11/27/16 21:00 101 121/72 11/27/16 20:07 98.3 F 99 18 120/76 94 11/27/16 20:00 104 120/76 11/27/16 19:00 101 130/70 11/27/16 16:33 98.2 F 109 18 113/60 95 11/27/16 16:00 98.4 F 98 20 125/73 98 11/27/16 11:45 98.4 F 120 16 115/65 89 11/27/16 10:59 98.4 F 120 16 115/65 89 Intake and Output 11/27/16 11/28/16 11/28/16 23:59 07:59 15:59 Intake Total 300 / 300 100 / 100 120 / 120 Output Total 700 / 700 250 / 250 Balance -400 / -400 -150 / -150 120 / 120 Intake: IV Fluids 200 / 200 100 / 100 Cardizem 125 MG In 100 / 100 Dextrose 5% 100 ML @ 5 MG /HR 5 mls/hr IVC .Q24H KAMRAN Rx#:[id number] Zosyn 3.375 GM In 100 / 100 100 / 100 Dextrose 5% (Minibag+) 100 ML 100 ML @ 25 mls/hr IVPB Q8HR KAMRAN Rx#: [id number] Oral 100 / 100 120 / 120 Output: Urine 550 / 550 Urethral (French) 550 / 550 Catheter 150 / 150 250 / 250 Other: Meal Dinner Breakfast Percent of Meal Consumed 50% 25% Weight 63.7 kg Blood Glucose* 109 88 Patient Weight 11/28/16 23:59 Weight 63.7 kg General: Conversant HEENT: Atraumatic, Normocephaly, Mucus Membranes Moist Neck: No JVD, Normal carotid pulses Cardiac: Other (irregularly irregular rhythm) Lungs: Other (scattered rhonchi) Neuro: Alert and responsive Abdomen: Soft, Non-Tender Skin: No rashes noted on visualized skin Musculoskeletal: Other (chest wall tenderness at rib fx site) Extremities: No Clubbing, No Cyanosis, No Edema, Normal Pulses Results 11/28/16 07:42 11/28/16 07:42 Lab Results 11/28/16 11/28/16 07:42 07:42 WBC 9.6 Hgb 8.8 L Hct 29.2 L Plt Count 341 Sodium 146 H Potassium 3.2 L Chloride 112 H Carbon Dioxide 27 BUN 50 H Creatinine 1.20 H Glucose 94 Calcium 9.2 Short CBC 11/28/16 Range/Units 07:42 WBC 9.6 (4.3-11.1) K/mcL Hgb 8.8 L (11.5-15.4) g/dL Hct 29.2 L (35.3-44.9) % Plt Count 341 (140-400) K/mcL Neutrophils # 7.5 (1.6-8.9) K/mcL BMP 11/28/16 Range/Units 07:42 Sodium 146 H (136-145) mEq/L Potassium 3.2 L (3.5-4.5) mEq/L Chloride 112 H (98-109) mEq/L Carbon Dioxide 27 (19-29) mEq/L BUN 50 H (7-20) mg/dL Creatinine 1.20 H (0.57-1.11) mg/dL Glucose 94 (70-99) mg/dL Calcium 9.2 (8.6-10.8) mg/dL Active Medications Acetaminophen (Tylenol) 650 mg PO Q6HR PRN PRN Reason: Mild Pain (1-3) Stop: 05/24/17 18:05 Last Admin: 11/24/16 20:36 Dose: 650 mg Albuterol Sulfate (Proventil Neb) 2.5 mg IH [id number] PRN; Protocol PRN Reason: Shortness Of Breath/Wheezing Stop: 05/27/17 17:05 Last Admin: 11/26/16 22:01 Dose: 2.5 mg Ascorbic Acid (Vitamin C) 500 mg PO DAILY KAMRAN Stop: 05/25/17 09:01 Last Admin: 11/28/16 08:27 Dose: 500 mg Budesonide/Formoterol Fumarate (Symbicort) 2 puff IH BIDRESP KAMRAN PRN Reason: Protocol Stop: 05/24/17 22:01 Last Admin: 11/28/16 08:10 Dose: 2 puff Bupropion HCl (Wellbutrin Sr) 200 mg PO BID K[facility]RAN Stop: 05/24/17 21:01 Last Admin: 11/28/16 08:28 Dose: 200 mg Clopidogrel Bisulfate (Plavix) 75 mg PO DAILY KAMRAN Stop: 05/25/17 09:01 Last Admin: 11/28/16 08:28 Dose: 75 mg Docusate Sodium (Colace) 100 mg PO BID KAMRAN Stop: 05/24/17 21:01 Last Admin: 11/28/16 08:29 Dose: 100 mg Donepezil HCl (Aricept) 10 mg PO HS K[facility]RAN Stop: 05/24/17 21:01 Last Admin: 11/27/16 19:42 Dose: 10 mg Enoxaparin Sodium (Lovenox) 30 mg SQ 0600 KAMRAN PRN Reason: Protocol Stop: 05/29/17 06:01 Last Admin: 11/28/16 06:28 Dose: 30 mg Ferrous Sulfate (Ferrous Sulfate) 325 mg PO DAILY K[facility]RAN Stop: 05/25/17 09:01 Last Admin: 11/28/16 08:27 Dose: 325 mg Furosemide (Lasix) 40 mg IVP BIDDIURETIC KAMRAN Stop: 05/27/17 10:01 Last Admin: 11/27/16 07:36 Dose: 40 mg Guaifenesin (Mucinex) 600 mg PO BID K[facility]RAN Stop: 05/25/17 09:01 Last Admin: 11/28/16 08:28 Dose: 600 mg Hydralazine HCl (Hydralazine) 50 mg PO TID KAMRAN Stop: 05/24/17 21:01 Last Admin: 11/28/16 08:27 Dose: 50 mg Hydralazine HCl (Hydralazine) 5 mg IVP Q10MIN PRN PRN Reason: systolic bp>180 Stop: 05/27/17 12:12 Hydromorphone HCl (Dilaudid) 1 mg IVP Q4HR PRN PRN Reason: Severe Pain Stop: 05/27/17 16:11 Last Admin: 11/27/16 23:04 Dose: 1 mg Piperacillin Sod/Tazobactam (Sod 3.375 gm/ Dextrose) 100 mls @ 25 mls/hr IVPB Q8HR KAMRAN PRN Reason: Protocol Stop: 05/27/17 08:01 Last Admin: 11/28/16 08:28 Dose: 25 mls/hr Diltiazem HCl 125 mg/ Dextrose 125 mls @ 5 mls/hr IVC .Q24H KAMRAN PRN Reason: 5 MG/HR Stop: 05/29/17 06:01 Last Admin: 11/28/16 06:27 Dose: 15 mg/hr, 15 mls/hr Isosorbide Mononitrate (Imdur) 60 mg PO DAILY [facility] Stop: 05/25/17 09:01 Last Admin: 11/28/16 08:29 Dose: 60 mg Lidocaine HCl (Lidoderm 5% Patch) 1 each TP DAILY@2200 [facility] Stop: 05/25/17 22:01 Last Admin: 11/27/16 21:04 Dose: 1 each Lorazepam (Ativan) 2 mg PO Q6H PRN PRN Reason: Anxiety Stop: 05/24/17 18:10 Last Admin: 11/28/16 04:08 Dose: 2 mg Melatonin (Melatonin) 9 mg PO HS [facility] Stop: 05/24/17 21:01 Last Admin: 11/27/16 19:42 Dose: 9 mg Metoprolol Succinate (Toprol Xl) 50 mg PO DAILY [facility] Stop: 05/30/17 09:01 Last Admin: 11/28/16 08:27 Dose: 50 mg Naloxone HCl (Narcan) 0.4 mg IVP Q2MIN PRN PRN Reason: Opioid Reversal Stop: 05/24/17 18:05 Omeprazole (Prilosec) 20 mg PO BID [facility] Stop: 05/24/17 21:01 Last Admin: 11/28/16 08:27 Dose: 20 mg Ondansetron HCl (Zofran) 4 mg IVP Q6H [facility] Stop: 05/27/17 15:31 Last Admin: 11/28/16 08:25 Dose: 4 mg Oxycodone HCl (Roxicodone) 5 mg PO Q6HR PRN PRN Reason: Pain Stop: 05/27/17 15:25 Last Admin: 11/28/16 08:26 Dose: 5 mg Promethazine HCl (Phenergan) 12.5 mg IVP ONCE PRN PRN Reason: Nausea And Vomiting Stop: 05/27/17 07:08 Last Admin: 11/25/16 07:15 Dose: 12.5 mg Sertraline HCl (Zoloft) 100 mg PO DAILY [facility]AN Stop: 05/25/17 09:01 Last Admin: 11/28/16 08:27 Dose: 100 mg Simvastatin (Zocor) 40 mg PO HS K[facility]AN PRN Reason: Protocol Stop: 05/24/17 21:01 Last Admin: 11/27/16 19:43 Dose: 40 mg Sucralfate (Carafate) 1 gm PO QIDAC [facility]AN Stop: 05/24/17 22:01 Last Admin: 11/28/16 08:28 Dose: 1 gm Tiotropium [place] (Spiriva) 18 mcg IH DAILY KAMRAN PRN Reason: Protocol Stop: 05/25/17 09:01 Last Admin: 11/28/16 08:14 Dose: Not Given - Imaging and Cardiology Echo: report reviewed Cardiac cath: report reviewed - EKG Interpretation EKG results cardiology: other (12 hr tele AVG HR 100, A-Fib) Consult Discharge Plan - Plan Referrals: Catrachito Coburn MD [Partnered Physician] - 12/02/16 3:00 pm
[2016-11-28] MEDS: Diltiazem CD (24hr) 180 MG CAPSULE PO SCH (10:11)
[2016-11-28] MEDS: Aspirin 81 MG TAB.CHEW PO SCH (10:11)
[2016-11-28] MEDS: Albuterol 2.5 MG/3 ML NEBULIZER IH PRN (10:15)
[2016-11-28] MEDS ORDERED: Levalbuterol Neb 0.63 MG/3 ML IH SCH (11:00)
--- NOTE | 2016-11-28 11:45 | Internal Med Progress Note ---
Date of Encounter: 11/28/16 Time of Encounter: 11:42 - Assessment and plan (1) Acute respiratory failure Current Visit: Yes Status: Acute Assessment and plan: etiology multifactorial with CHF exacerbation, afib rvr an daspiration pneumonia ; clinically better, currently tolerating 3l of o2 via nasal cannula lung exam sound better as compared to yest. CT chest shows possible flluid but cannot rule out pneumonia continue IV zosyn ,de escalate once more stable. continue to hold lasix for now swallow eval, recommended mechanical altered diet. Qualifiers: Respiratory failure complication: hypoxia Qualified Code(s): J96.01 - Acute respiratory failure with hypoxia (2) Rib fracture Current Visit: Yes Status: Acute Assessment and plan: 1 patient experienced a mechanical fall from standing sustained 7-8-ninth rib fracture. Patient is very frail and has had several falls in the past few months. pain is much cntrolled with pain meds, however given DANIEL and acute respiratory failure,changed morhphine to dilaudid as needed 2 PT OT following 3 family do not want her to go to [facility]. 4 fall precautions 5 incentive spirometry 6. DVT prophylaxis. Qualifiers: Encounter type: initial encounter Rib fracture type: single rib Fracture type: closed Laterality: left Qualified Code(s): S22.32XA - Fracture of one rib, left side, initial encounter for closed fracture (3) CHF (congestive heart failure) Current Visit: No Status: Chronic Assessment and plan: 1 LVEF 60% on ECHO, Ischemic cardiomyopathy, [facility] 01/2016-- known [employer] proximal RCA with mature L to R collaterals; moderate stenosis to LAD, mild LCx disease. Medical management recommended by cardiology at that time. holding lasix for now, given dehydration and worsening DANIEL DANIEL is better, chest sounds relatively better. Intake and output daily weight Qualifiers: Congestive heart failure type: systolic Congestive heart failure chronicity : chronic Qualified Code(s): I50.22 - Chronic systolic (congestive) heart failure (4) COPD (chronic obstructive pulmonary disease) Current Visit: No Status: Chronic Assessment and plan: 1 will change the nebs to xopenex, continue home dose symbicort and spiriva. Qualifiers: COPD type: emphysema Emphysema type: panlobular Qualified Code(s): J43.1 - Panlobular emphysema (5) Falls frequently Current Visit: No Status: Chronic (6) Atrial fibrillation with RVR Current Visit: Yes Status: Acute Assessment and plan: HR much controlled today, still on cardizem drip, plan to dc today . being followed by cardiology, have increase dose of metoprolol and added cardizem. not a candidate for AC,given age and risk of frequent falls, on asa only. - Subjective Interval history: seen at the bedside, much alert and awake this morning and is communicating well , tolerating 3 L of nasal cannula. Denies any chest pain , no cough or vomiting, making urine today. - Constitutional Vitals: Temp Pulse Resp BP Pulse Ox 98.7 F 93 20 124/66 95 11/28/16 10:00 11/28/16 10:00 11/28/16 10:00 11/28/16 10:00 11/28/16 10:00 General appearance: Present: A&O X 3 Exam: Supple. Chest bilateral occasional crepitations, minimal wheezing. CVS S1 and S2, no murmurs rubs or gallops. Abdomen soft, nontender, bowel sounds are present. Extremities no edema. Neuro alert and awake, no focal neuro deficits Internal Medicine: Result - Labs CBC & Chem 7: 11/28/16 07:42 11/28/16 07:42 Labs: Short CBC 11/28/16 Range/Units 07:42 WBC 9.6 (4.3-11.1) K/mcL Hgb 8.8 L (11.5-15.4) g/dL Hct 29.2 L (35.3-44.9) % Plt Count 341 (140-400) K/mcL Neutrophils # 7.5 (1.6-8.9) K/mcL BMP 11/28/16 07:42 Sodium 146 H Potassium 3.2 L Chloride 112 H Carbon Dioxide 27 BUN 50 H Creatinine 1.20 H Glucose 94 Calcium 9.2 - ABG Interpretation ABG results: ABG ABG pH 7.29 pH Units (7.32-7.45) L 11/25/16 07:46 ABG pCO2 50 mmHg (35-45) H 11/25/16 07:46 ABG pO2 176 mmHg (85-104) H 11/25/16 07:46 ABG O2 Saturation 99 % (95-98) H 11/25/16 07:46 PT/INR, D-dimer PT 12.5 Seconds (9.4-12.1) H 11/22/16 15:11 Consult Discharge Plan - Plan Referrals: Catrachito Coburn MD [Partnered Physician] - 12/02/16 3:00 pm
--- NOTE | 2016-11-28 11:51 | Electrocardiograph Report ---
[address] [place], [place] [address] Test Date: 2016-11-27 Pat Name: Mayra Khalil Department: 110 Room: 2N01 Gender: F [employer]: : 1935 Requested By: Puja [employer] Order Number: [id number] Reading MD: Giorgi Pimentel MD Measurements Intervals [place] Rate: 162 P: CA: 0 QRS: 184 QRSD: 139 T: 19 QT: 249 QTc: 339 Interpretive Statements ATRIAL FIBRILLATION WITH RAPID VENTRICULAR RESPONSE MARKED RIGHT AXIS DEVIATION RIGHT BUNDLE BRANCH BLOCK MARKED ST DEPRESSION, CONSIDER SUBENDOCARDIAL INJURY Electronically Signed On 11-28-2016 11:50:03 EDT by Giorgi Pimentel MD
[2016-11-28] MEDS: Levalbuterol Neb 0.63 MG/3 ML IH SCH ×2 (15:56→20:52)
[2016-11-28] MEDS: Ipratropium Neb 0.5 MG NEBULIZER AER SCH ×2 (15:56→20:52)
[2016-11-28] MEDS: Ampicillin/Sulbactam 1,500 MG in 0.9 % Sodium Chloride Mini Bag 100 ML IVPB SCH ×2 (17:56→23:08)
[2016-11-28] MEDS: Melatonin 3 MG TABLET PO SCH (19:57)
[2016-11-28] MEDS: Sennosides/Docusate Sodium TABLET PO PRN (21:42)
[2016-11-28] MEDS: Acetaminophen 325 MG TABLET PO PRN (23:08)
[2016-11-29] MEDS: Levalbuterol Neb 0.63 MG/3 ML IH SCH ×6 (00:56→21:23)
[2016-11-29] MEDS: Ipratropium Neb 0.5 MG NEBULIZER AER SCH ×3 (00:56→07:37)
[2016-11-29] MEDS: Ondansetron 4 MG/2 ML VIAL IVP SCH ×4 (04:01→22:50)
[2016-11-29] MEDS: Ampicillin/Sulbactam 1,500 MG in 0.9 % Sodium Chloride Mini Bag 100 ML IVPB SCH ×3 (06:45→17:55)
[2016-11-29] MEDS: *HR* Enoxaparin 30 MG/0.3 ML SYRINGE SQ SCH (06:45)
[2016-11-29] MEDS: Budesonide/Formoterol 160/4.5 MDI IH SCH (07:36)
[2016-11-29] MEDS: Sucralfate 1 GM TABLET PO SCH ×4 (08:14→20:30)
[2016-11-29] MEDS: BuPROPion SR (12 HR) 100 MG TABLET PO SCH ×2 (08:15→20:29)
[2016-11-29] MEDS: Diltiazem CD (24hr) 180 MG CAPSULE PO SCH (08:15)
[2016-11-29] MEDS: Ascorbic Acid 500 MG TABLET PO SCH (08:15)
[2016-11-29] MEDS: Metoprolol XL (24 HR) Succ 50 MG TAB.ER.24H PO SCH ×2 (08:15→10:30)
[2016-11-29] MEDS: Isosorbide MONOnitrate (24 HR) 60 MG TAB.ER.24H PO SCH (08:15)
[2016-11-29] MEDS: hydrALAZINE 25 MG TABLET PO SCH ×3 (08:15→20:28)
[2016-11-29] MEDS: Aspirin 81 MG TAB.CHEW PO SCH (08:15)
[2016-11-29] MEDS ORDERED: Albuterol 2.5 MG/3 ML NEBULIZER IH PRN (08:33)
--- NOTE | 2016-11-29 08:45 | Internal Med Progress Note ---
Date of Encounter: 12/01/16 Time of Encounter: 08:36 - Assessment and plan (1) COPD exacerbation Current Visit: Yes Status: Acute (2) Diastolic CHF, acute on chronic Current Visit: Yes Status: Chronic (3) Falls frequently Current Visit: Yes Status: Chronic (4) Acute kidney injury superimposed on CKD Current Visit: Yes Status: Acute (5) Aspiration pneumonia Current Visit: Yes Status: Acute Qualifiers: Aspiration pneumonia type: unspecified Laterality: right Lung location: lower lobe of lung Qualified Code(s): J69.0 - Pneumonitis due to inhalation of food and vomit (6) Dementia Current Visit: No Status: Chronic Qualifiers: Dementia type: Alzheimer's disease Alzheimer's disease onset: late-onset Dementia behavioral disturbance: without behavioral disturbance Qualified Code (s): G30.1 - Alzheimer's disease with late onset; F02.80 - Dementia in other diseases classified elsewhere without behavioral disturbance (7) DVT prophylaxis Current Visit: No Status: Acute (8) Lung nodule Current Visit: Yes Status: Acute (9) Rib fracture Current Visit: Yes Status: Acute Qualifiers: Encounter type: initial encounter Rib fracture type: single rib Fracture type: closed Laterality: left Qualified Code(s): S22.32XA - Fracture of one rib, left side, initial encounter for closed fracture (10) Atrial fibrillation with RVR Current Visit: Yes Status: Acute (11) Hypokalemia Current Visit: Yes Status: Resolved - Subjective Interval history: 11/29 /Mrs. Lucy Khalil is a 81-year-old female whose care was taken over today from hospitalist team. She is admitted for a AK I. Ms. Khalil is known to have diastolic congestive heart failure and dependent edema which is always a reason to over diuresed her which contributes to her elevated when necessary and creatinine however previously when she was discharged her baseline renal function were normal. As as shown by a renal ultrasound during this admission which shows normal size kidneys. Her Lasix is on hold and for some reason her potassium is always low therefore I will add KCl 20 mEq daily while watching her potassium on daily basis. We hope with Lasix on hold her renal function will return to normal. She is in uncontrolled atrial fibrillation and cardiology suspects that this has something to do with her poor pulmonary function. I have increased her metoprolol 100 mg daily while keeping her on Cardizem. Beside that she is also on hydralazine for her blood pressure. I will change her DuoNeb's every 6 with when necessary albuterol and add IV Solu-Medrol 60 every 8 while she is already on Mucinex. When she came in her white count was quite elevated and she was felt to have bilateral pneumonia. She is on Zosyn and since her white count has improved I would continue her on that. Important to note that during previous admission which was within 30 days she did have UTI and there unilateral pneumonia and was treated with Rocephin. Patient has dysphagia and underwent detailed evaluation in the past with recommendation to have mechanical soft with nectar thick liquids. She has a ninth rib fracture due to mechanical fall. I reviewed her record during last 2 years and did not find any brain imaging except noncontrast CT head which was not done during this admission. 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 Bustamante who plans to do a PET scan and if it shows enough evidence then proceed with chemotherapy without biopsy considering that she is not a good Candidate for Biopsy Procedure. A Physical Therapy Evaluation Is in Process However I Feel That We Need to Evaluate Her for Her Frequent Falls. She Takes Some Narcotics Quite Frail and This Also Can Contribute to Her Falls. Finally during Last Admission She Was Admitted with Gastritis and She Underwent EGD by Dr. Servando Ngo Who Recommended to Keep Her Only on Plavix and Take Her off Aspirin As She Was Noted to Have Gastritis and Duodenitis. She Is Planned to Have Colonoscopy As Outpatient by Him Therefore I Will Take Her off Aspirin and Keep Her Only on Plavix As Planned. - Constitutional Vitals: Temp Pulse Resp BP Pulse Ox 97.6 F 116 22 148/84 100 11/29/16 07:42 11/29/16 07:42 11/29/16 07:42 11/29/16 07:42 11/29/16 07:42 General appearance: Present: A&O X 3 Internal Medicine: Result - Labs CBC & Chem 7: 11/28/16 07:42 12/01/16 05:35 Labs: Short CBC 11/28/16 Range/Units 07:42 WBC 9.6 (4.3-11.1) K/mcL Hgb 8.8 L (11.5-15.4) g/dL Hct 29.2 L (35.3-44.9) % Plt Count 341 (140-400) K/mcL Neutrophils # 7.5 (1.6-8.9) K/mcL BMP 11/28/16 07:42 Sodium 146 H Potassium 3.2 L Chloride 112 H Carbon Dioxide 27 BUN 50 H Creatinine 1.20 H Glucose 94 Calcium 9.2 - ABG Interpretation ABG results: ABG ABG pH 7.29 pH Units (7.32-7.45) L 11/25/16 07:46 ABG pCO2 50 mmHg (35-45) H 11/25/16 07:46 ABG pO2 176 mmHg (85-104) H 11/25/16 07:46 ABG O2 Saturation 99 % (95-98) H 11/25/16 07:46 PT/INR, D-dimer PT 12.5 Seconds (9.4-12.1) H 11/22/16 15:11 Consult Discharge Plan - Plan Referrals: Catrachito Coburn MD [Partnered Physician] - (Pt is going to rehab, no PCP appointment needed)
[2016-11-29] MEDS: Potassium Chloride Elixir 20 MEQ/15 ML UDC PO SCH (10:30)
[2016-11-29] MEDS: Ipratropium/Albuterol Neb 3 ML IH SCH ×3 (11:29→22:31)
[2016-11-29] MEDS: methylPREDNISolone 125 MG/2 ML VIAL IVP SCH (15:53)
[2016-11-29] MEDS: Sennosides/Docusate Sodium TABLET PO PRN (20:27)
[2016-11-29] MEDS: *HR* LORazepam 1 MG TABLET PO PRN (20:27)
[2016-11-29] MEDS: *HR* OxyCODONE Immed Rel 5 MG TABLET PO PRN (20:29)
[2016-11-29] MEDS: Melatonin 3 MG TABLET PO SCH (20:29)
[2016-11-30] MEDS: Levalbuterol Neb 0.63 MG/3 ML IH SCH ×4 (00:10→12:46)
[2016-11-30] MEDS: Ampicillin/Sulbactam 1,500 MG in 0.9 % Sodium Chloride Mini Bag 100 ML IVPB SCH ×5 (01:11→22:44)
[2016-11-30] MEDS: methylPREDNISolone 125 MG/2 ML VIAL IVP SCH ×4 (01:11→23:44)
[2016-11-30] MEDS: Ipratropium/Albuterol Neb 3 ML IH SCH ×4 (05:21→22:47)
[2016-11-30] MEDS: Sucralfate 1 GM TABLET PO SCH ×5 (05:50→22:43)
[2016-11-30] MEDS: *HR* OxyCODONE Immed Rel 5 MG TABLET PO PRN ×2 (05:57→23:43)
[2016-11-30] MEDS: *HR* Enoxaparin 40 MG/0.4 ML SYRINGE SQ SCH (05:57)
[2016-11-30 06:24] LABS: Alanine Aminotransferase 12 Units/L (0-55); Albumin 2.2 g/dL (3.5-5.0); Albumin/Globulin Ratio 0.6 (1.1-2.2); Alkaline Phosphatase 62 Units/L (38-126); Aspartate Amino Transferase 14 Units/L (5-34); BUN/Creatinine Ratio 48 (6-26); Bilirubin,Total 0.2 mg/dL (0.2-1.2); Calcium 9.3 mg/dL (8.6-10.8); Carbon Dioxide 25 mEq/L (19-29); Chloride 115 mEq/L (98-109); Glucose 170 mg/dL (70-99); Osmolality,Calculated 317 (280-300); Potassium 3.5 mEq/L (3.5-4.5); Sodium 147 mEq/L (136-145); Total Protein 6.2 g/dL (6.0-8.3); eGFR For African Americans > 60 (> 60); eGFR For Non-African Americans > 60 (> 60)
[2016-11-30 06:30] LABS: Blood Urea Nitrogen 38 mg/dL (7-20)
[2016-11-30] MEDS: Ondansetron 4 MG/2 ML VIAL IVP SCH ×2 (07:48→08:07)
[2016-11-30] MEDS: Potassium Chloride Elixir 20 MEQ/15 ML UDC PO SCH (08:01)
[2016-11-30] MEDS: BuPROPion SR (12 HR) 100 MG TABLET PO SCH ×2 (08:04→22:42)
[2016-11-30] MEDS: hydrALAZINE 25 MG TABLET PO SCH ×3 (08:04→22:43)
[2016-11-30] MEDS: Diltiazem CD (24hr) 180 MG CAPSULE PO SCH (08:04)
[2016-11-30] MEDS: Metoprolol XL (24 HR) Succ 50 MG TAB.ER.24H PO SCH (08:05)
[2016-11-30] MEDS: Isosorbide MONOnitrate (24 HR) 60 MG TAB.ER.24H PO SCH (08:06)
[2016-11-30] MEDS: Ascorbic Acid 500 MG TABLET PO SCH (08:06)
[2016-11-30] MEDS ORDERED: Ondansetron 4 MG/2 ML VIAL IVP PRN (15:32)
[2016-11-30] MEDS ORDERED: Bisacodyl 10 MG RECTAL SUPPOSITORY RC PRN (15:36)
[2016-11-30] MEDS ORDERED: *HR* Heparin 5,000 UNIT/ML VIAL ONE (17:50)
[2016-11-30] MEDS: Sennosides/Docusate Sodium TABLET PO SCH (22:42)
[2016-11-30] MEDS: *HR* LORazepam 1 MG TABLET PO PRN (22:43)
[2016-11-30] MEDS: Melatonin 3 MG TABLET PO SCH (22:44)
[2016-12-01] MEDS: Ipratropium/Albuterol Neb 3 ML IH SCH ×3 (04:20→15:36)
[2016-12-01 06:05] LABS: BUN/Creatinine Ratio 56 (6-26); Blood Urea Nitrogen 48 mg/dL (7-20); Carbon Dioxide 24 mEq/L (19-29); Chloride 115 mEq/L (98-109); Glucose 160 mg/dL (70-99); Osmolality,Calculated 322 (280-300); Potassium 3.1 mEq/L (3.5-4.5); Sodium 148 mEq/L (136-145); eGFR For African Americans > 60 (> 60); eGFR For Non-African Americans > 60 (> 60)
[2016-12-01 06:06] LABS: Alanine Aminotransferase 10 Units/L (0-55); Albumin 2.2 g/dL (3.5-5.0); Albumin/Globulin Ratio 0.6 (1.1-2.2); Alkaline Phosphatase 59 Units/L (38-126); Aspartate Amino Transferase 16 Units/L (5-34); Bilirubin,Total 0.2 mg/dL (0.2-1.2); Calcium 9.1 mg/dL (8.6-10.8); Globulin 3.7 g/dL (2.4-3.5); Total Protein 5.9 g/dL (6.0-8.3)
[2016-12-01] MEDS: Sennosides/Docusate Sodium TABLET PO SCH (09:13)
[2016-12-01] MEDS: Sucralfate 1 GM TABLET PO SCH ×3 (09:13→15:44)
[2016-12-01] MEDS: Isosorbide MONOnitrate (24 HR) 60 MG TAB.ER.24H PO SCH (09:13)
[2016-12-01] MEDS: Metoprolol XL (24 HR) Succ 50 MG TAB.ER.24H PO SCH (09:14)
[2016-12-01] MEDS: Potassium Chloride Elixir 20 MEQ/15 ML UDC PO SCH (09:14)
[2016-12-01] MEDS: Ascorbic Acid 500 MG TABLET PO SCH (09:14)
[2016-12-01] MEDS: *HR* OxyCODONE Immed Rel 5 MG TABLET PO PRN ×2 (09:14→15:45)
[2016-12-01] MEDS: Diltiazem CD (24hr) 180 MG CAPSULE PO SCH (09:14)
[2016-12-01] MEDS: hydrALAZINE 25 MG TABLET PO SCH ×2 (09:14→15:44)
[2016-12-01] MEDS: methylPREDNISolone 125 MG/2 ML VIAL IVP SCH ×2 (09:15→15:44)
[2016-12-01] MEDS: *HR* Enoxaparin 40 MG/0.4 ML SYRINGE SQ SCH (09:15)
[2016-12-01] MEDS: Ampicillin/Sulbactam 1,500 MG in 0.9 % Sodium Chloride Mini Bag 100 ML IVPB SCH (09:15)
[2016-12-01] MEDS: BuPROPion SR (12 HR) 100 MG TABLET PO SCH (10:27)
[2016-12-01] MEDS ORDERED: Potassium Chloride Elixir 20 MEQ/15 ML UDC PO ONE (13:34)
--- NOTE | 2016-12-01 13:41 | Internal Med Progress Note ---
Date of Encounter: 12/01/16 (Late entry) Time of Encounter: 09:00 - Assessment and plan (1) COPD exacerbation Current Visit: Yes Status: Acute (2) Diastolic CHF, acute on chronic Current Visit: Yes Status: Chronic (3) Falls frequently Current Visit: Yes Status: Chronic (4) Acute kidney injury superimposed on CKD Current Visit: Yes Status: Acute (5) Aspiration pneumonia Current Visit: Yes Status: Acute Qualifiers: Aspiration pneumonia type: unspecified Laterality: right Lung location: lower lobe of lung Qualified Code(s): J69.0 - Pneumonitis due to inhalation of food and vomit (6) Dementia Current Visit: No Status: Chronic Qualifiers: Dementia type: Alzheimer's disease Alzheimer's disease onset: late-onset Dementia behavioral disturbance: without behavioral disturbance Qualified Code (s): G30.1 - Alzheimer's disease with late onset; F02.80 - Dementia in other diseases classified elsewhere without behavioral disturbance (7) DVT prophylaxis Current Visit: No Status: Acute (8) Lung nodule Current Visit: Yes Status: Acute (9) Rib fracture Current Visit: Yes Status: Acute Qualifiers: Encounter type: initial encounter Rib fracture type: single rib Fracture type: closed Laterality: left Qualified Code(s): S22.32XA - Fracture of one rib, left side, initial encounter for closed fracture (10) Atrial fibrillation with RVR Current Visit: Yes Status: Acute (11) Hypokalemia Current Visit: Yes Status: Resolved - Subjective Interval history: 11/29 /Mrs. Lucy Khalil is a 81-year-old female whose care was taken over today from hospitalist team. She is admitted for a AK I. Ms. Khalil is known to have diastolic congestive heart failure and dependent edema which is always a reason to over diuresed her which contributes to her elevated when necessary and creatinine however previously when she was discharged her baseline renal function were normal. As as shown by a renal ultrasound during this admission which shows normal size kidneys. Her Lasix is on hold and for some reason her potassium is always low therefore I will add KCl 20 mEq daily while watching her potassium on daily basis. We hope with Lasix on hold her renal function will return to normal. She is in uncontrolled atrial fibrillation and cardiology suspects that this has something to do with her poor pulmonary function. I have increased her metoprolol 100 mg daily while keeping her on Cardizem. Beside that she is also on hydralazine for her blood pressure. I will change her DuoNeb's every 6 with when necessary albuterol and add IV Solu-Medrol 60 every 8 while she is already on Mucinex. When she came in her white count was quite elevated and she was felt to have bilateral pneumonia. She is on Zosyn and since her white count has improved I would continue her on that. Important to note that during previous admission which was within 30 days she did have UTI and there unilateral pneumonia and was treated with Rocephin. Patient has dysphagia and underwent detailed evaluation in the past with recommendation to have mechanical soft with nectar thick liquids. She has a ninth rib fracture due to mechanical fall. I reviewed her record during last 2 years and did not find any brain imaging except noncontrast CT head which was not done during this admission. 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 Bustamante who plans to do a PET scan and if it shows enough evidence then proceed with chemotherapy without biopsy considering that she is not a good Candidate for Biopsy Procedure. A Physical Therapy Evaluation Is in Process However I Feel That We Need to Evaluate Her for Her Frequent Falls. She Takes Some Narcotics Quite Frail and This Also Can Contribute to Her Falls. Finally during Last Admission She Was Admitted with Gastritis and She Underwent EGD by Dr. Servando Ngo Who Recommended to Keep Her Only on Plavix and Take Her off Aspirin As She Was Noted to Have Gastritis and Duodenitis. She Is Planned to Have Colonoscopy As Outpatient by Him Therefore I Will Take Her off Aspirin and Keep Her Only on Plavix As Planned. 11/30 seems to be doing much better now especially breathing well and oxygen demand has gone down. Will increase beta norbert to control heart rate better but overall cardiopulmonary-driscoll she has improved. Continue watching potassium. I suspect when we will reduce the frequency of DuoNeb heart rate will improve better. Discussed discharge planning at length with rn field case manager patient's family and patient and patient's home. Our strong recommendation is for her to go to [facility] and family has conquered. - Constitutional Vitals: Temp Pulse Resp BP Pulse Ox 97.5 F L 105 18 137/74 98 12/01/16 10:35 07/06/17 10:35 12/01/16 10:48 12/01/16 10:35 12/01/16 10:48 General appearance: Present: A&O X 3 - Head Head exam: Present: atraumatic, normocephalic - Eye Eye exam: Present: PERRL, conjuntiva pink, sclera anicteric Pupils: Present: PERRL - Neck Neck exam general surgery: Present: supple, trachea midline. Absent: lymphadenopathy - Respiratory Respiratory exam: Present: CTAB. Absent: accessory muscle use, rales, rhonchi, wheezes - Cardiovascular Cardiovascular exam: Present: RRR, +S1, +S2. Absent: diastolic murmur, gallop, rubs, systolic murmur - GI/Abdominal GI/Abdominal exam: Present: normal bowel sounds, soft, no peritoneal signs. Absent: distended, tenderness - Extremities Exam Extremities exam: Present: warm, radial pulses palpable and symetrical. Absent : calf tenderness, cyanotic, pedal edema - Neurological Exam Neurological exam: Present: CN II-XII intact, oriented X3, no focal deficits. Absent: pronater drift, facial droop, speech deficit - Skin Skin exam: Present: dry, intact Internal Medicine: Result - Labs CBC & Chem 7: 11/28/16 07:42 12/01/16 05:35 Labs: BMP 12/01/16 05:35 Sodium 148 H Potassium 3.1 L Chloride 115 H Carbon Dioxide 24 BUN 48 H D Creatinine 0.86 Glucose 160 H Calcium 9.1 Liver Function 12/01/16 Range/Units 05:35 Total Bilirubin 0.2 (0.2-1.2) mg/dL AST 16 (5-34) Units/L ALT 10 (0-55) Units/L Alkaline Phosphatase 59 (38-126) Units/L Albumin 2.2 L (3.5-5.0) g/dL - ABG Interpretation ABG results: ABG ABG pH 7.29 pH Units (7.32-7.45) L 11/25/16 07:46 ABG pCO2 50 mmHg (35-45) H 11/25/16 07:46 ABG pO2 176 mmHg (85-104) H 11/25/16 07:46 ABG O2 Saturation 99 % (95-98) H 11/25/16 07:46 PT/INR, D-dimer PT 12.5 Seconds (9.4-12.1) H 11/22/16 15:11 - Impressions Impressions Brain MRI 11/29/16 08:23 IMPRESSION: The study is limited by motion artifact. Cerebral atrophy. Mild chronic small vessel ischemic changes. No acute infarct. No obvious abnormal areas of enhancement to suggest a brain parenchymal metastasis at this time. D/ / 11/30/2016 14:24:34 Dyan Hamilton MD / [facility] Interpreting Provider: Dyan Hamilton MD Consult Discharge Plan - Plan Referrals: Catrachito Coburn MD [Partnered Physician] - (Pt is going to rehab, no PCP appointment needed)
--- NOTE | 2016-12-01 13:53 | Discharge Summary ---
Date of Encounter: 12/01/16 Time of Encounter: 13:43 - Discharge Diagnosis (1) COPD exacerbation Priority: Primary Status: Acute (2) Diastolic CHF, acute on chronic Priority: Primary Status: Chronic (3) Falls frequently Priority: Primary Status: Chronic (4) Acute kidney injury superimposed on CKD Priority: Primary Status: Acute (5) Aspiration pneumonia Priority: Primary Status: Acute Qualifiers: Aspiration pneumonia type: unspecified Laterality: right Lung location: lower lobe of lung Qualified Code(s): J69.0 - Pneumonitis due to inhalation of food and vomit (6) Dementia Priority: Secondary Status: Chronic Qualifiers: Dementia type: Alzheimer's disease Alzheimer's disease onset: late-onset Dementia behavioral disturbance: without behavioral disturbance Qualified Code (s): G30.1 - Alzheimer's disease with late onset; F02.80 - Dementia in other diseases classified elsewhere without behavioral disturbance (7) DVT prophylaxis Priority: Secondary Status: Acute (8) Lung nodule Priority: Secondary Status: Acute (9) Rib fracture Priority: Secondary Status: Acute Qualifiers: Encounter type: initial encounter Rib fracture type: single rib Fracture type: closed Laterality: left Qualified Code(s): S22.32XA - Fracture of one rib, left side, initial encounter for closed fracture (10) Atrial fibrillation with RVR Priority: Primary Status: Acute (11) Hypokalemia Priority: Primary Status: Resolved - Discharge Medications Prescriptions: Amoxicillin/Clavulanate [Augmentin] 875 mg PO BIDWM #14 tablet predniSONE [PredniSONE] 40 mg PO DAILY #10 tablet Home Medications: Budesonide/Formoterol 160/4.5 [Symbicort] 2 puff IH BID 02/20/15 [History] Clopidogrel [Plavix] 75 mg PO DAILY 02/20/15 [History] Tiotropium [Spiriva] 18 mcg IH DAILY 02/20/15 [History] Donepezil [Aricept] 10 mg PO HS 04/03/15 [History] Alendronate Sodium [Fosamax] 70 mg PO MO 07/09/15 [History] Ascorbate Calcium [Vitamin C] 500 mg PO DAILY 07/09/15 [History] Isosorbide MONOnitrate (24 HR) [Imdur] 60 mg PO DAILY 07/09/15 [History] Simvastatin [Zocor] 40 mg PO HS 07/09/15 [History] Albuterol Neb [Proventil Neb] 2.5 mg IH TID 07/04/16 [History] Melatonin 10 mg PO HS 08/12/16 [History] Albuterol Sulfate [Proair Hfa] 2 puff IH Q4H PRN 10/20/16 [History] Ferrous Sulfate 325 mg PO DAILY 10/20/16 [History] Hydralazine HCl 50 mg PO TID 10/20/16 [History] Nitroglycerin [Nitrostat] 0.4 mg SL Q5M PRN 10/20/16 [History] Oxygen 3 l NS CONT 10/20/16 [History] Sertraline [Zoloft] 100 mg PO DAILY 10/20/16 [History] buPROPion HCl [Bupropion HCl Sr] 200 mg PO BID 10/20/16 [History] Pantoprazole Sodium [Protonix] 40 mg PO BID #60 tablet. 11/10/16 [Rx] Sucralfate [Carafate] 1 gm PO QIDAC #120 tablet 11/10/16 [Rx] LORazepam [Ativan] 1 mg PO Q6H PRN 11/22/16 [History] Acetaminophen [Tylenol] 650 mg PO Q6HR PRN #0 tablet 12/01/16 [Rx] Albuterol Neb [Proventil Neb] 2.5 mg IH Q2H PRN #0 inhsol 12/01/16 [Rx] Amoxicillin/Clavulanate [Augmentin] 875 mg PO BIDWM #14 tablet 12/01/16 [Rx] Diltiazem CD (24hr) [Cardizem CD] 360 mg PO DAILY cap.er.24h 12/01/16 [Rx] Furosemide [Lasix] 40 mg PO DAILY #30 tablet 12/01/16 [Rx] GuaiFENesin ER [Mucinex] 600 mg PO BID tbbp.12hr 12/01/16 [Rx] Ipratropium/Albuterol Neb [Duoneb] 3 ml IH TID inhsol 12/01/16 [Rx] Lidocaine Patch [Lidoderm 5% patch] 1 each TP DAILY@2200 adh..patch 12/01/16 [ Rx] Metoprolol XL (24 HR) Succ [Toprol Xl] 100 mg PO BID #60 tab.er.24h 12/01/16 [Rx ] Potassium Chloride [Klor-Con 10] 20 meq PO BID #0 12/01/16 [Rx] Sucralfate [Carafate] 1 gm PO QIDAC tablet 12/01/16 [Rx] predniSONE [PredniSONE] 40 mg PO DAILY #10 tablet 12/01/16 [Rx] Allergies/Adverse Reactions: Allergies citalopram [From Celexa] Allergy (Verified 11/22/16 16:12) Difficulty Breathing amlodipine [From Norvasc] Adverse Reaction (Verified 11/22/16 16:12) Difficulty Breathing also swelling haloperidol [From Haldol] Adverse Reaction (Verified 11/22/16 16:12) Hallucinating risperidone Adverse Reaction (Verified 11/17/16 10:44) See Comments AMS roflumilast [From Daliresp] Adverse Reaction (Verified 11/22/16 16:12) Difficulty Breathing also rash Procedures/tests Complete & Pending: Procedures Performed prior 72 hours Category Date Time Status MR head/brain wo/w con [MR] Routine MRI 11/29/16 08:23 Draft Date of admission: 11/22/16 18:41 Primary care physician: Lisbeth Salmon CNP Consults: 11/23/16 03:42 Consult to Respiratory Therapy [CONS] Routine Reason for Consult: Acapella device Q4H PRN for secretions Call Completed: No 11/25/16 16:08 Consult to Speech Therapy [CONS] Stat Comment: Evaluate, develop and implement POC Reason for Consult: Evaluate patient ability to swallow Call Completed: No 11/26/16 10:31 Consult to Nephrology [CONS] Routine Consulting Provider: [facility] Reason for Consult: please evaluate for DANIEL and decreased urine output in this patient with CHF. Call Completed: Yes 11/27/16 08:58 Consult to Cardiology [CONS] Routine Comment: Consulting Provider: Cardiology Beth Reason for Consult: please evalaute this patient with new onset Afib RVR with h/o CHF on cardizem drip.thank you Call Completed: No Discharging clinician: Judah Mancia Anticipated date of discharge: 12/01/16 - Patient Status Disposition: Transfer SNF Condition: Fair Overall status at discharge: patient is progressing back to baseline - Discharge Instructions Instructions: Prednisone (By mouth), Amoxicillin/Clavulanate Potassium (By mouth), Fall Prevention (DC) Follow Up With: Catrachito Coburn MD [Partnered Physician] - (Pt is going to rehab, no PCP appointment needed) Hospital course: Mrs. Lucy Khaill is a 81-year-old female whose care was taken over today from hospitalist team. She is admitted for a AK I. Ms. Khalil is known to have diastolic congestive heart failure and dependent edema which is always a reason to over diuresed her which contributes to her elevated when necessary and creatinine however previously when she was discharged her baseline renal function were normal. As as shown by a renal ultrasound during this admission which shows normal size kidneys. Her Lasix is on hold and for some reason her potassium is always low therefore I will add KCl 20 mEq daily while watching her potassium on daily basis. We hope with Lasix on hold her renal function will return to normal. She is in uncontrolled atrial fibrillation and cardiology suspects that this has something to do with her poor pulmonary function. I have increased her metoprolol 100 mg daily while keeping her on Cardizem. Beside that she is also on hydralazine for her blood pressure. I will change her DuoNeb's every 6 with when necessary albuterol and add IV Solu- Medrol 60 every 8 while she is already on Mucinex. When she came in her white count was quite elevated and she was felt to have bilateral pneumonia. She is on Zosyn and since her white count has improved I would continue her on that. Important to note that during previous admission which was within 30 days she did have UTI and there unilateral pneumonia and was treated with Rocephin. Patient has dysphagia and underwent detailed evaluation in the past with recommendation to have mechanical soft with nectar thick liquids. She has a ninth rib fracture due to mechanical fall. I reviewed her record during last 2 years and did not find any brain imaging except noncontrast CT head which was not done during this admission. 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 Bustamante who plans to do a PET scan and if it shows enough evidence then proceed with chemotherapy without biopsy considering that she is not a good Candidate for Biopsy Procedure. A Physical Therapy Evaluation Is in Process However I Feel That We Need to Evaluate Her for Her Frequent Falls. She Takes Some Narcotics Quite Frail and This Also Can Contribute to Her Falls. Finally during Last Admission She Was Admitted with Gastritis and She Underwent EGD by Dr. Servando Ngo Who Recommended to Keep Her Only on Plavix and Take Her off Aspirin As She Was Noted to Have Gastritis and Duodenitis. She Is Planned to Have Colonoscopy As Outpatient by Him Therefore I Will Take Her off Aspirin and Keep Her Only on Plavix As Planned. Did not make much better this morning on Center and has come down to 2-2.5 L. Chest clear. Increase Toprol as heart rate is on slightly higher side and reduce albuterol nebulizers tapering dose of prednisone. Continue antibiotics. Time spent discussing smoking cessation with patient: more than 10 minutes - Time Spent with Patient Total time spent providing and/or coordinating discharge services: Greater than 30 minutes - Constitutional Vitals: Temp Pulse Resp BP Pulse Ox 97.5 F L 105 18 137/74 98 12/01/16 10:35 12/01/16 10:35 12/01/16 10:48 12/01/16 10:35 12/01/16 10:48 General appearance: Present: A&O X 3
[2016-12-01] MEDS ORDERED: Ampicillin/Sulbactam 1,500 MG in 0.9 % Sodium Chloride Mini Bag 100 ML IVPB SCH (15:00)
[2016-12-01 16:47] VITALS: BP 136/88
--- NOTE | 2016-12-01 17:35 | Physician Discharge Referral ---
ExtendedCare Referral Info Transfer To: ECF Provider in Charge: vince Provider in Charge after Transfer: PCP - Diagnosis (1) COPD exacerbation Status: Acute (2) Diastolic CHF, acute on chronic Status: Chronic (3) Falls frequently Status: Chronic (4) Acute kidney injury superimposed on CKD Status: Acute (5) Aspiration pneumonia Status: Acute (6) Dementia Status: Chronic (7) DVT prophylaxis Status: Acute (8) Lung nodule Status: Acute (9) Rib fracture Status: Acute (10) Atrial fibrillation with RVR Status: Acute (11) Hypokalemia Status: Resolved - Transfer Medications Prescriptions: Amoxicillin/Clavulanate [Augmentin] 875 mg PO BIDWM #14 tablet predniSONE [PredniSONE] 40 mg PO DAILY #10 tablet Home Medications: Budesonide/Formoterol 160/4.5 [Symbicort] 2 puff IH BID 02/20/15 [History] Clopidogrel [Plavix] 75 mg PO DAILY 02/20/15 [History] Tiotropium [Spiriva] 18 mcg IH DAILY 02/20/15 [History] Donepezil [Aricept] 10 mg PO HS 04/03/15 [History] Alendronate Sodium [Fosamax] 70 mg PO MO 07/09/15 [History] Ascorbate Calcium [Vitamin C] 500 mg PO DAILY 07/09/15 [History] Isosorbide MONOnitrate (24 HR) [Imdur] 60 mg PO DAILY 07/09/15 [History] Simvastatin [Zocor] 40 mg PO HS 07/09/15 [History] Albuterol Neb [Proventil Neb] 2.5 mg IH TID 07/04/16 [History] Melatonin 10 mg PO HS 08/12/16 [History] Albuterol Sulfate [Proair Hfa] 2 puff IH Q4H PRN 10/20/16 [History] Ferrous Sulfate 325 mg PO DAILY 10/20/16 [History] Hydralazine HCl 50 mg PO TID 10/20/16 [History] Nitroglycerin [Nitrostat] 0.4 mg SL Q5M PRN 10/20/16 [History] Oxygen 3 l NS CONT 10/20/16 [History] Sertraline [Zoloft] 100 mg PO DAILY 10/20/16 [History] buPROPion HCl [Bupropion HCl Sr] 200 mg PO BID 10/20/16 [History] Pantoprazole Sodium [Protonix] 40 mg PO BID #60 tablet.dr 11/10/16 [Rx] Sucralfate [Carafate] 1 gm PO QIDAC #120 tablet 11/10/16 [Rx] LORazepam [Ativan] 1 mg PO Q6H PRN 11/22/16 [History] Acetaminophen [Tylenol] 650 mg PO Q6HR PRN #0 tablet 12/01/16 [Rx] Albuterol Neb [Proventil Neb] 2.5 mg IH Q2H PRN #0 inhsol 12/01/16 [Rx] Amoxicillin/Clavulanate [Augmentin] 875 mg PO BIDWM #14 tablet 12/01/16 [Rx] Diltiazem CD (24hr) [Cardizem CD] 360 mg PO DAILY cap.er.24h 12/01/16 [Rx] Furosemide [Lasix] 40 mg PO DAILY #30 tablet 12/01/16 [Rx] GuaiFENesin ER [Mucinex] 600 mg PO BID tbbp.12hr 12/01/16 [Rx] Ipratropium/Albuterol Neb [Duoneb] 3 ml IH TID inhsol 12/01/16 [Rx] Lidocaine Patch [Lidoderm 5% patch] 1 each TP DAILY@2200 adh..patch 12/01/16 [ Rx] Metoprolol XL (24 HR) Succ [Toprol Xl] 100 mg PO BID #60 tab.er.24h 12/01/16 [Rx ] Potassium Chloride [Klor-Con 10] 20 meq PO BID #0 12/01/16 [Rx] Sucralfate [Carafate] 1 gm PO QIDAC tablet 12/01/16 [Rx] predniSONE [PredniSONE] 40 mg PO DAILY #10 tablet 12/01/16 [Rx] Allergies/Adverse Reactions: Allergies citalopram [From Celexa] Allergy (Verified 11/22/16 16:12) Difficulty Breathing amlodipine [From Norvasc] Adverse Reaction (Verified 11/22/16 16:12) Difficulty Breathing also swelling haloperidol [From Haldol] Adverse Reaction (Verified 11/22/16 16:12) Hallucinating risperidone Adverse Reaction (Verified 11/17/16 10:44) See Comments AMS roflumilast [From Daliresp] Adverse Reaction (Verified 11/22/16 16:12) Difficulty Breathing also rash - Respiratory Orders Smoking Cessation: Smoking cessation has been advised. For more information, call the [place] Tobacco Quit Line at 3-272-LLNBNOW. CERTIFICATION: I certify that the transfer of the above named patient to an Extended Care Facility is necessary for the continuing treatment of the diagnosis listed. The above information is true and accurate reflection of patient's current condition. Confidential - Redisclosure prohibited without a patient's written consent.
== END 2016-12-01 19:20 | DRG 205 ==
LOC: 3NENU 12:28 → EMEROO 12:28 → 3NENU 16:49 → 3ANU 11-23 12:49 → 2NNU 11-25 09:59
PROVIDERS: ADMIT Internal Medicine; ATTEND Internal Medicine

== ENCOUNTER 2017-02-20 13:46 | Inpatient (IN) ==
[2017-02-20] MEDS ORDERED: Ipratropium/Albuterol Neb 3 ML IH ONE (14:41)
[2017-02-20 14:49] LABS: Basophils # 0.1 K/mcL (0.0-0.2); Basophils % 0.3 %; Hematocrit 36.4 % (35.3-44.9); Hemoglobin 10.7 g/dL (11.5-15.4); Immature Granulocytes % 2.6 % (0-4); Lymphocytes # 0.7 K/mcL (0.6-4.6); Lymphocytes % 4.3 %; Mean Corpuscular HGB Conc 29.4 g/dL (31.6-35.5); Mean Corpuscular Hemoglobin 29.7 pg (28.0-33.3); Mean Corpuscular Volume 101.1 fL (83.0-100.0); Mean Platelet Volume 9.7 fL (9.4-12.4); Monocytes # 0.5 K/mcL (0.0-1.3); Monocytes % 2.9 %; Neutrophils # 14.2 K/mcL (1.6-8.9); Platelet Count 229 K/mcL (140-400); Red Cell Distribution Width 16.9 % (11.5-14.5); Segmented Neutrophils % 89.9 %
--- NOTE | 2017-02-20 14:53 | Emergency Department Note ---
Disposition Clinical Impression: Lung nodule CHF (congestive heart failure) Qualifiers: Congestive heart failure type: unspecified congestive heart failure type Congestive heart failure chronicity: acute on chronic Qualified Code(s): I50.9 - Heart failure, unspecified Dyspnea Qualifiers: Dyspnea type: shortness of breath Qualified Code(s): R06.02 - Shortness of breath; R06.00 - Dyspnea, unspecified; R06.01 - Orthopnea Disposition: Admitted As Inpatient Condition: Fair Referrals: Lisbeth Salmon [facility] [Primary Care Provider] - Forms: ED Satisfaction Letter Time of Disposition: 17:03 General Adult HPI - General Chief complaint: ED Chest Pain Stated complaint: C/P Time Seen by Provider: 02/20/17 13:54 Source: patient Limitations: no limitations Nursing Notes Reviewed: Yes Vital Signs Reviewed: Yes - History of Present Illness HPI Narrative: 1 week history of shortness of breath increasing edema to her lower extremities. 1-1/2 day history of left-sided chest pain. Shortness of breath gets worse on exertion. No relief. Does have a productive cough. Denies any fevers. His pain is a aching/weight to the left side of her chest. Does not radiate. It is associated with the shortness of breath. Pain Scale: 10 - Related Data Home Medications Medication Instructions Recorded Confirmed Budesonide/Formoterol 160/4.5 2 puff IH BID 02/20/15 02/16/17 [Symbicort] Clopidogrel [Plavix] 75 mg PO DAILY 02/20/15 02/16/17 Tiotropium [Spiriva] 2 puff IH DAILY 02/20/15 02/16/17 Donepezil [Aricept] 10 mg PO HS 04/03/15 02/16/17 Ascorbate Calcium [Vitamin C] 500 mg PO DAILY 07/09/15 02/16/17 Isosorbide MONOnitrate (24 HR) 60 mg PO DAILY 07/09/15 02/16/17 [Imdur] Simvastatin [Zocor] 10 mg PO HS 07/09/15 02/16/17 Melatonin 10 mg PO HS 08/12/16 02/16/17 Albuterol Sulfate [Proair Hfa] 2 puff IH Q4H PRN 10/20/16 02/16/17 Ferrous Sulfate 325 mg PO DAILY 10/20/16 02/16/17 Hydralazine HCl 50 mg PO TID 10/20/16 02/16/17 Nitroglycerin [Nitrostat] 0.4 mg SL Q5M PRN 10/20/16 02/16/17 Oxygen 3 l NS CONT 10/20/16 02/16/17 Sertraline [Zoloft] 100 mg PO DAILY 10/20/16 02/16/17 buPROPion HCl [Bupropion HCl Sr] 200 mg PO BID 10/20/16 02/16/17 LORazepam [Ativan] 1 mg PO BID PRN 11/22/16 02/16/17 HYDROcodone/Acet 5/325 mg [[facility] 2 tab PO Q6H PRN 02/01/17 02/16/17 5-325 mg] Nystatin [Nystatin Suspension] 100,000 units PO QID 02/01/17 02/16/17 predniSONE [PredniSONE] 40 mg PO DAILY 02/01/17 02/16/17 Furosemide [Lasix] 40 mg PO HS 02/16/17 02/16/17 Furosemide [Lasix] 80 mg PO DAILY 02/16/17 02/16/17 Metoprolol XL (24 HR) Succ [Toprol 100 mg PO DAILY 02/16/17 02/16/17 Xl] Morphine Sulfate [Morphine Oral 0.25 ml PO AD PRN 02/16/17 02/16/17 Solution] Pantoprazole Sodium [Protonix] 40 mg PO DAILY 02/16/17 02/16/17 Potassium Chloride [Klor-Con 10] 10 meq PO BID 02/16/17 02/16/17 Previous Rx's Medication Instructions Recorded Albuterol Neb [Proventil Neb] 2.5 mg IH Q2H PRN #0 inhsol 12/01/16 Diltiazem CD (24hr) [Cardizem CD] 360 mg PO DAILY cap.er.24h 12/01/16 GuaiFENesin ER [Mucinex] 600 mg PO BID tbbp.12hr 12/01/16 Ipratropium/Albuterol Neb [Duoneb] 3 ml IH TID inhsol 12/01/16 Allergies Allergy/AdvReac Type Severity Reaction Status Date / Time citalopram [From Celexa] Allergy Difficulty Verified 02/01/17 09:53 Breathing amlodipine [From Norvasc] AdvReac Difficulty Verified 02/01/17 09:53 Breathing haloperidol [From Haldol] AdvReac Hallucinati Verified 02/01/17 09:53 ng risperidone AdvReac See Verified 02/01/17 09:53 Comments roflumilast [From Daliresp] AdvReac Difficulty Verified 02/01/17 09:53 Breathing All systems ED: reviewed and negative except as stated. Constitutional: Denies: fever, chills Cardiovascular: Reports: chest pain (Left-sided. Ache/heaviness). Denies: palpitations, syncope Respiratory: Reports: cough, dyspnea, sputum production (Yellow to white ) Gastrointestinal: Reports: abdominal pain (At incision site.), nausea, vomiting. Denies: diarrhea, constipation, hematemesis, melena Genitourinary: Denies: urgency, dysuria, frequency, hematuria Musculoskeletal: Denies: back pain, neck pain Integumentary: Denies: rash, abrasion Neurological: Reports: weakness. Denies: headache, numbness Past Medical History - Past Medical History Attestation: Yes The following information was validated with the patient. Source: patient Medical history: Reports: arthritis, cancer, CHF, COPD, coronary artery disease , dementia, GERD, hyperlipidemia, hypertension, myocardial infarction, osteoporosis, peripheral artery disease, renal disease, other Surgical history: Reports: cholecystectomy, hysterectomy, orthopedic, other, BHARATHI /BSO, other Psychiatric history: Reports: anxiety, depression - Social History Smoking Status: Former smoker Smokeless Tobacco Status: No Alcohol use: Reports: none Drug use: Reports: none Physical Exam - General Limitations: no limitations General appearance: alert, in distress (Moderate respiratory distress) - Head Head exam: atraumatic, normocephalic, normal inspection - Eye Eye exam: Present: normal appearance, PERRL, EOMI - ENT ENT exam: normal exam, normal oropharynx, mucous membranes moist - Neck Neck exam: Present: normal inspection, full ROM, trachea midline - Chest Chest inspection: Present: normal inspection, symmetric chest wall rise. Absent : tenderness, rash - Respiratory Respiratory exam: Present: respiratory distress (Conversationally dyspneic), accessory muscle use (Mild retractions), other (Diminished lung sounds throughout.) - Cardiovascular Cardiovascular exam: Present: regular rate - Abdominal Exam Abdominal exam: Present: soft, Non-Tender. Absent: tenderness, distention, guarding, rebound, rigidity - Extremities Exam Extremities exam: Present: normal inspection, full ROM, normal capillary refill. Absent: tenderness, pedal edema - Back Exam Back exam: Present: normal inspection, full ROM. Absent: tenderness, CVA tenderness (R), CVA tenderness (L) - Neurological Exam Neurological exam: Present: alert, oriented X3 - Psychiatric Psychiatric exam: Present: normal affect, normal mood - Skin Skin exam: Present: warm, dry, intact, normal color. Absent: rash, cyanosis, diaphoresis, erythema Course Course Narrative: Female patient presenting to the emergency department complaining of a one-week history of shortness of breath. She has had a several month history of a productive cough with white sputum. States that she started getting chest pain earlier today or possibly last night. Patient has been diagnosed with lung cancer recently. However she has not received any treatment. She was found also have a T-spine fracture that she is scheduled for surgery tomorrow. She has also been recently diagnosed within the past year with Mariana zheng. She does take Plavix however this is been held for this past several days due to her surgery tomorrow. Patient has had an increasing in swelling in her lower extremities. She does have 3+ pitting edema to her lower extremities up to her knees. She has been on Lasix that has been increased recently. She is still making urine she states. Patient denies any fevers or chills. She does report dyspnea on exertion. Her lung sounds are diminished throughout. She gets short of breath on any movement in the bed. She reports the chest pain is a aching in the left side of her chest. She does chronically wear oxygen. We will get basic lab workup and a chest x-ray on the patient. We will also provide her with 3 DuoNeb's. We will likely CTA patient's chest to rule out a pulmonary embolism however we will check kidney function prior to ordering this. - Reevaluation(s) Reevaluation #1: Patient was placed on BiPAP. She is tolerating this well. She appears to be resting comfortably. Patient CTA showed no signs of a PE. Patient is appear fluid overloaded. We will begin to diurese patient. Patient does have an elevated BMP with a history of this. We will admit patient to hospital for CHF exacerbation. Time: 15:48 - Consultations Consultation #1: [facility] accepted Pt in stable condition. Time: 18:16 Vital Signs Temperature 98 F 02/20/17 13:48 Pulse Rate 95 02/20/17 13:48 Respiratory Rate 16 02/20/17 13:48 Blood Pressure 134/77 02/20/17 13:48 O2 Sat by Pulse Oximetry 96 02/20/17 13:48 Temperature 98 F 02/20/17 13:48 Pulse Rate 96 02/20/17 16:11 Respiratory Rate 16 02/20/17 16:11 Blood Pressure 126/73 02/20/17 16:11 O2 Sat by Pulse Oximetry 99 02/20/17 16:11 Oxygen Delivery Oxygen Delivery Bipap Medical Decision Making - Medical Records Medical records reviewed: Yes I reviewed the patient's medical records. - Lab Data Lab results reviewed: Yes I reviewed the patient's lab results. Result diagrams: 02/20/17 14:29 02/20/17 14:29 Lab Results 02/20/17 02/20/17 02/20/17 Range/Units 14:28 14:29 14:29 WBC 15.9 H (4.3-11.1) K/mcL RBC 3.60 L (3.82-4.97) M/mcL Hgb 10.7 L (11.5-15.4) g/dL Hct 36.4 (35.3-44.9) % MCV 101.1 H (83.0-100.0) fL MCH 29.7 (28.0-33.3) pg MCHC 29.4 L (31.6-35.5) g/dL RDW 16.9 H (11.5-14.5) % Plt Count 229 (140-400) K/mcL MPV 9.7 (9.4-12.4) fL Immature Gran % 2.6 (0-4) % Seg Neutrophils % 89.9 % Lymphocytes % 4.3 % Monocytes % 2.9 % Eosinophils % 0.0 % Basophils % 0.3 % Neutrophils # 14.2 H (1.6-8.9) K/mcL Lymphocytes # 0.7 (0.6-4.6) K/mcL Monocytes # 0.5 (0.0-1.3) K/mcL Eosinophils # 0.0 (0.0-0.6) K/mcL Basophils # 0.1 (0.0-0.2) K/mcL PT 10.2 (9.4-12.1) Seconds INR 1.0 APTT 23.5 L (26.0-36.0) Seconds Sodium 144 (136-145) mEq/L Potassium 3.9 (3.5-4.5) mEq/L Chloride 103 (98-109) mEq/L Carbon Dioxide 31 H (19-29) mEq/L BUN 38 H (7-20) mg/dL Creatinine 1.10 (0.57-1.11) mg/dL Est GFR ( Amer) 58 L (> 60) Est GFR (Non-Af Amer) 48 L (> 60) BUN/Creatinine Ratio 35 H (6-26) Glucose 120 H (70-99) mg/dL Calculated Osmolality 308 H (280-300) Calcium 9.1 (8.6-10.8) mg/dL Troponin I (0-0.03) ng/mL B-Natriuretic Peptide (0-100) pg/mL TSH 2.850 (0.350-4.840) mcIU/mL 02/20/17 02/20/17 Range/Units 14:29 14:43 WBC (4.3-11.1) K/mcL RBC (3.82-4.97) M/mcL Hgb (11.5-15.4) g/dL Hct (35.3-44.9) % MCV (83.0-100.0) fL MCH (28.0-33.3) pg MCHC (31.6-35.5) g/dL RDW (11.5-14.5) % Plt Count (140-400) K/mcL MPV (9.4-12.4) fL Immature Gran % (0-4) % Seg Neutrophils % % Lymphocytes % % Monocytes % % Eosinophils % % Basophils % % Neutrophils # (1.6-8.9) K/mcL Lymphocytes # (0.6-4.6) K/mcL Monocytes # (0.0-1.3) K/mcL Eosinophils # (0.0-0.6) K/mcL Basophils # (0.0-0.2) K/mcL PT (9.4-12.1) Seconds INR APTT (26.0-36.0) Seconds Sodium (136-145) mEq/L Potassium (3.5-4.5) mEq/L Chloride (98-109) mEq/L Carbon Dioxide (19-29) mEq/L BUN (7-20) mg/dL Creatinine (0.57-1.11) mg/dL Est GFR ( Amer) (> 60) Est GFR (Non-Af Amer) (> 60) BUN/Creatinine Ratio (6-26) Glucose (70-99) mg/dL Calculated Osmolality (280-300) Calcium (8.6-10.8) mg/dL Troponin I 0.03 (0-0.03) ng/mL B-Natriuretic Peptide 933 H (0-100) pg/mL TSH (0.350-4.840) mcIU/mL - Radiology Data Radiology results reviewed: Yes I reviewed the patient's radiology results. Chest X-Ray 02/20/17 13:58 IMPRESSION: 1. Cardiomegaly with vascular congestion. D/ / Cm Sun MD / Cm Sun MD Interpreting Provider: Cm Sun MD - EKG Data EKG #1 EKG attestation: Yes I reviewed and interpreted this EKG. EKG results narrative: A. fib at a rate of 105. QRS duration is 96. QT is 353. QTC is 414. No signs of acute ischemia. Does have some T-wave inversion in leads V4 V5 and V6. Attestation Statement - Attestation Attestation: I, Huber Joy DO, examined this patient [id number] and my medical decision-making was reviewed with Dr. Gissell Benjamin , Resident Physician. I agree with the documented findings, disposition and treatment plan as described except to the extent set forth below. Please see my progress notes for details. 81-year-old female presents from home for evaluation of increased work of breathing, shortness of breath, fluid overload, generalized malaise. Currently not chemotherapy or radiation therapy for known bilateral lung masses. Recent evaluation and treatment for fluid overload completed. Known back fracture at this time. Physical exam shows increased work of breathing bilateral intermittent auditory crackles no specific wheezing. Heart is tachycardic and irregular at times. Abdomen is soft nontender nondistended with no guarding or rigidity. She has significant pitting edema +3 out to the mid morales and proximal tibia. Pulses are intact otherwise. Patient is mentating appropriately but has orthopnea and conversational dyspnea. Imaging including CT angiography, chest x-ray EKG and laboratory workup to be completed. Patient will mostly required admission secondary to increased work of breathing and fluid overload. Duo nebs breathing treatment, BiPAP, Lasix to be given at this time. Disposition pending treatment course and evaluation. Physical exam is otherwise unremarkable except for chronic medical issues with exacerbation. See detailed documentation of the physical exam, medical intervention, medical decision making process and disposition and the resident physician's note
[2017-02-20 14:58] LABS: Prothrombin Time 10.2 Seconds (9.4-12.1)
[2017-02-20 15:00] LABS: Activated Partial Thrombo Time 23.5 Seconds (26.0-36.0)
[2017-02-20 15:23] LABS: Calcium 9.1 mg/dL (8.6-10.8); Potassium 3.9 mEq/L (3.5-4.5)
[2017-02-20] MEDS ORDERED: *HR* Morphine 2 MG/ML SYRINGE IVP ONE (15:29)
[2017-02-20] MEDS ORDERED: Furosemide 40 MG/4 ML VIAL IVP ONE (15:40)
[2017-02-20 15:41] LABS: Thyroid Stimulating Hormone 2.85 mcIU/mL (0.350-4.840)
[2017-02-20 21:32] LABS: Bilirubin,Urine Negative (Negative); Blood,Urine Negative (Negative); Clarity,Urine Clear (Clear); Color,Urine Yellow (Yellow); Glucose,Urine (UA) Normal (Normal); Ketones,Urine Negative (Negative); Leukocyte Esterase,Urine Negative (Negative); Nitrite,Urine Negative (Negative); Protein,Urine Negative (Neg-Trace); Specific Gravity,Urine 1.013 (1.010-1.025); Urobilinogen,Urine Normal (Normal)
[2017-02-20] MEDS ORDERED: Naloxone 0.4 MG/ML INJ IVP PRN (21:51)
[2017-02-20] MEDS ORDERED: Acetaminophen 325 MG TABLET PO PRN (21:51)
[2017-02-20] MEDS ORDERED: Ondansetron 4 MG/2 ML VIAL IVP PRN (21:51)
[2017-02-20] MEDS ORDERED: Furosemide 40 MG/4 ML VIAL IVP SCH (22:00)
[2017-02-20] MEDS: *HR* Morphine 2 MG/ML SYRINGE IVP PRN (22:36)
[2017-02-20] MEDS ORDERED: Albuterol 2.5 MG/3 ML NEBULIZER IH PRN (22:37)
[2017-02-20] MEDS ORDERED: *HR* HYDROcodone/Acet 5/325 mg TABLET PO PRN (22:39)
[2017-02-20] MEDS ORDERED: Nitroglycerin 0.4 MG TAB.SUBL SL PRN (22:39)
[2017-02-20] MEDS: Ipratropium/Albuterol Neb 3 ML IH SCH (23:19)
--- NOTE | 2017-02-20 23:31 | Internal Med History&Physical ---
<Isabel Grace M - Last Filed: 02/20/17 23:21> Date of Encounter: 02/20/17 Time of Encounter: 23:21 Assessment and Plan (1) Acute and chronic respiratory failure with hypoxia Current visit: Yes Status: Acute Patient on oxygen at home, but presented with Acute respiratory failure secondary to CHF exacerbation and required BIPAP. Treat CHF exacerbation with diuresis and fluid restriction. Titrate oxygen to maintain saturation > 90%. (2) Acute on chronic congestive heart failure Current visit: Yes Status: Acute Patient presents with worsening shortness of breath and swelling x 1 week. She also reports weight gain of 25 lbs in the last month. BNP elevated at 933. CXR showed cardiomegaly with vascular congestion. BLE with +3-4 pitting edema. Last echo 11/25/16 showed LVEF of 60% and moderate diastolic dysfunction. Patient takes a total of 120mg PO of lasix at home. Patient given 40mg of IVP lasix and started on Bipap in ED, she had been titrated down to 5L NC on my exam and appeared comfortable. 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 She was scheduled for a vertebroplasty tomorrow. She has been holding her plavix for the last week in preparation for this surgery. Continue to hold plavix. Bunker and morphine PRN for back pain. Qualifiers: Encounter type: subsequent encounter Fracture healing: with routine healing Qualified Code(s): M48.50XD - Collapsed vertebra, not elsewhere classified, site unspecified, subsequent encounter for fracture with routine healing (4) Hospice care patient Current visit: Yes Status: Acute Patient is on Hospice at home. Patient's daughter has concerns and questions regarding Hospice care. Patient is DNR-[id number] code status. Palliative care consult ordered. (5) COPD (chronic obstructive pulmonary disease) Current visit: Yes Status: Chronic Patient with history of COPD. She is admitted with shortness of breath, but presentation more consistent with CHF exacerbation, not in COPD exacerbation. Duoneb treatments QID albuterol Q2hr PRN Continue home COPD medications. Qualifiers: COPD type: emphysema Emphysema type: panlobular Qualified Code(s): J43.1 - Panlobular emphysema (6) DVT prophylaxis Current visit: Yes Status: Acute anti-embolic stockings heparin TID SQ. Internal Medicine - H&P: HPI Chief complaint: shortness of breath and swelling Admitted From: Emergency Dept Plans for Post Hospital Care: Home History of present illness: Ms. Khalil is a 81 year old female with hypertension, hyperlipidemia, COPD, congestive heart failure, coronary artery disease, dementia, peripheral vascular disease, chronic kidney disease, A. fib, recent diagnosis of lung cancer presented to the emergency department today with complaints of shortness of breath and increased swelling for the last week. Patient has had worsening shortness of breath, productive cough, and increased lower extremity swelling over the last week. Today patient could barely complete a sentence and daughters stated she looked blue. She also reported to have an increase of 25 pounds in the last month. She reports some lightheadedness, chest heaviness as well. She denies any nausea, vomiting, abdominal pain or diarrhea. She denies any fever, chills or sweats. Evaluation in the emergency department included a chest x-ray which showed cardiomegaly with vascular congestion. BNP was elevated to 933. White blood cell count was elevated at 15 point down however patient is on prednisone. UA was negative for infection. CTA was completed which showed no evidence of pulmonary embolism, enlarging left apical and right basilar irregular pulmonary nodules consistent with progressing metastatic disease. Patient was given 40 of Lasix, DuoNeb treatments, and started on BiPAP in the emergency department. On exam, patient alert and oriented, in no acute distress. She is breathing comfortably on 5L NC. Heart has regular rate and rhythm. lungs with crackles in bilateral bases. BLE with +3-4 pitting edema. Past Med Surg Social Fam HX - Past Medical History Medical history: arthritis, cancer, CHF, COPD, coronary artery disease, dementia , GERD, hyperlipidemia, hypertension, myocardial infarction, osteoporosis, peripheral artery disease, renal disease, other Psychiatric history: anxiety, depression - Past Surgical History Surgical History: cholecystectomy, hysterectomy, orthopedic, other, BHARATHI/BSO, other - Social History Smoking Status: Former smoker Smokeless Tobacco Status: No Alcohol use: none Drug use: none - Family History Father Living Status: Hx Family Cardiac Disorders: Yes Hx Family Cancer: Yes (RCC) Mother Living Status: Hx Family Cardiac Disorders: Yes Hx Family Respiratory Disorders: No Hx Family Cancer: Yes (bladder cancer) Hx Family GI Disorders: No Hx Family Endocrine Disorder: No Hx Family Neuromuscular Disorders: No Hx Family Neurologic Disorders: No Internal Medicine - H&P: Meds Budesonide/Formoterol 160/4.5 [Symbicort] 2 puff IH BID 02/20/15 [History] Clopidogrel [Plavix] 75 mg PO DAILY 02/20/15 [History] Tiotropium [Spiriva] 2 puff IH DAILY 02/20/15 [History] Donepezil [Aricept] 10 mg PO HS 04/03/15 [History] Ascorbate Calcium [Vitamin C] 500 mg PO DAILY 07/09/15 [History] Isosorbide MONOnitrate (24 HR) [Imdur] 60 mg PO DAILY 07/09/15 [History] Simvastatin [Zocor] 10 mg PO HS 07/09/15 [History] Melatonin 10 mg PO HS 08/12/16 [History] Albuterol Sulfate [Proair Hfa] 2 puff IH Q4H PRN 10/20/16 [History] Ferrous Sulfate 325 mg PO DAILY 10/20/16 [History] Hydralazine HCl 50 mg PO TID 10/20/16 [History] Nitroglycerin [Nitrostat] 0.4 mg SL Q5M PRN 10/20/16 [History] Oxygen 3 l NS CONT 10/20/16 [History] Sertraline [Zoloft] 100 mg PO DAILY 10/20/16 [History] buPROPion HCl [Bupropion HCl Sr] 200 mg PO BID 10/20/16 [History] LORazepam [Ativan] 1 mg PO BID PRN 11/22/16 [History] Albuterol Neb [Proventil Neb] 2.5 mg IH Q2H PRN #0 inhsol 12/01/16 [Rx] Diltiazem CD (24hr) [Cardizem CD] 360 mg PO DAILY cap.er.24h 12/01/16 [Rx] Ipratropium/Albuterol Neb [Duoneb] 3 ml IH TID inhsol 12/01/16 [Rx] HYDROcodone/Acet 5/325 mg [Bunker 5-325 mg] 2 tab PO Q6H PRN 02/01/17 [History] predniSONE [PredniSONE] 20 mg PO BID 02/01/17 [History] Furosemide [Lasix] 80 mg PO DAILY 02/16/17 [History] Metoprolol XL (24 HR) Succ [Toprol Xl] 100 mg PO DAILY 02/16/17 [History] Morphine Sulfate [Morphine Oral Solution] 0.25 ml PO AD PRN 02/16/17 [History] Pantoprazole Sodium [Protonix] 40 mg PO DAILY 02/16/17 [History] Potassium Chloride [Klor-Con 10] 10 meq PO BID 02/16/17 [History] Furosemide [Lasix] 40 mg PO DAILY 02/20/17 [History] GuaiFENesin ER [Mucinex] 600 mg PO BID PRN 02/20/17 [History] 3 Allergy/AdvReac Type Severity Reaction Status Date / Time citalopram [From Celexa] Allergy Difficulty Verified 02/01/17 09:53 Breathing amlodipine [From Norvasc] AdvReac Difficulty Verified 02/01/17 09:53 Breathing haloperidol [From Haldol] AdvReac Hallucinati Verified 02/01/17 09:53 ng risperidone AdvReac See Verified 02/01/17 09:53 Comments roflumilast [From Daliresp] AdvReac Difficulty Verified 02/01/17 09:53 Breathing All Systems PM: A 10-system review of systems was performed and is negative for pertinent findings except as documented above in the HPI. - Constitutional Constitutional: no chills, no fever(s), no night sweats - EENT Eyes: no change in vision, no discharge, no pain, no photophobia Ears: no ear discharge, no ear pain, no tinnitus Nose, mouth and throat: no dysphagia, no nasal discharge, no neck pain, no sore throat - Cardiovascular Cardiovascular ROS IM: chest pain, dyspnea, dyspnea on exertion, edema, lightheadedness, no diaphoresis, no palpitations, no syncope - Respiratory Respiratory: cough, dyspnea, dyspnea on exertion, no wheezing, no excessive phlegm production - Gastrointestinal Gastrointestinal: no abdominal pain, no diarrhea, no hematemesis, no hematochezia, no melena, no nausea, no vomiting - Genitourinary Genitourinary: no change in urinary stream, no dysuria, no flank pain, no hematuria - Musculoskeletal Musculoskeletal ROS IM: back pain, no numbness, no tingling - Integumentary Integumentary IM: no rash, no unusual bruising - Neurological Neurological ROS: no confusion, no convulsions, no focal weakness, no numbness, no tingling, no tremor(s) - Hematologic/Lymphatic Hematologic/Lymphatic: no easy bruising - Constitutional Vitals: Temp Pulse Resp BP Pulse Ox 97.7 F 83 16 125/77 99 02/20/17 21:23 02/20/17 22:30 02/20/17 22:30 02/20/17 22:30 02/20/17 22:30 General appearance: Present: A&O X 3, pleasant, no acute distress - Head Head exam: Present: atraumatic, normocephalic - Eye Eye exam: Present: PERRL, conjuntiva pink, sclera anicteric Pupils: Present: PERRL - Neck Neck exam general surgery: Present: supple, trachea midline. Absent: lymphadenopathy - Respiratory Respiratory exam: Present: rales (bilateral bases). Absent: accessory muscle use, rhonchi, wheezes - Cardiovascular Cardiovascular exam: Present: RRR, +S1, +S2. Absent: diastolic murmur, gallop, rubs, systolic murmur - GI/Abdominal GI/Abdominal exam: Present: normal bowel sounds, soft, no peritoneal signs. Absent: distended, tenderness - Extremities Exam Extremities exam: Present: pedal edema (+3-4 in BLE), warm, radial pulses palpable and symmetrical. Absent: calf tenderness, cyanotic - Neurological Exam Neurological exam: Present: CN II-XII intact, oriented X3, no focal deficits. Absent: pronater drift, facial droop, speech deficit - Skin Skin exam: Present: dry, intact Internal Med - H&P Results - Labs CBC & Chem 7: 02/20/17 14:29 02/20/17 14:29 Labs: All Lab Results (24 Hours) 02/20/17 02/20/17 02/20/17 Range/Units 14:28 14:29 14:29 WBC 15.9 H (4.3-11.1) K/mcL RBC 3.60 L (3.82-4.97) M/mcL Hgb 10.7 L (11.5-15.4) g/dL Hct 36.4 (35.3-44.9) % MCV 101.1 H (83.0-100.0) fL MCH 29.7 (28.0-33.3) pg MCHC 29.4 L (31.6-35.5) g/dL RDW 16.9 H (11.5-14.5) % Plt Count 229 (140-400) K/mcL MPV 9.7 (9.4-12.4) fL Immature Gran % 2.6 (0-4) % Seg Neutrophils % 89.9 % Lymphocytes % 4.3 % Monocytes % 2.9 % Eosinophils % 0.0 % Basophils % 0.3 % Neutrophils # 14.2 H (1.6-8.9) K/mcL Lymphocytes # 0.7 (0.6-4.6) K/mcL Monocytes # 0.5 (0.0-1.3) K/mcL Eosinophils # 0.0 (0.0-0.6) K/mcL Basophils # 0.1 (0.0-0.2) K/mcL PT 10.2 (9.4-12.1) Seconds INR 1.0 APTT 23.5 L (26.0-36.0) Seconds Sodium 144 (136-145) mEq/L Potassium 3.9 (3.5-4.5) mEq/L Chloride 103 (98-109) mEq/L Carbon Dioxide 31 H (19-29) mEq/L BUN 38 H (7-20) mg/dL Creatinine 1.10 (0.57-1.11) mg/dL Est GFR ( Amer) 58 L (> 60) Est GFR (Non-Af Amer) 48 L (> 60) BUN/Creatinine Ratio 35 H (6-26) Glucose 120 H (70-99) mg/dL Calculated Osmolality 308 H (280-300) Calcium 9.1 (8.6-10.8) mg/dL Troponin I (0-0.03) ng/mL B-Natriuretic Peptide (0-100) pg/mL TSH 2.850 (0.350-4.840) mcIU/mL Urine Color (Yellow) Urine Clarity (Clear) Urine pH (5.0-8.0) pH Units Ur Specific [place] (1.010-1.025) Urine Protein (Neg-Trace) mg/dL Urine Glucose (UA) (Normal) mg/dL Urine Ketones (Negative) mg/dL Urine Blood (Negative) Urine Nitrite (Negative) Urine Bilirubin (Negative) Urine Urobilinogen (Normal) mg/dL Ur Leukocyte Esterase (Negative) Ur Culture Indicated? (NO) 02/20/17 02/20/17 02/20/17 Range/Units 14:29 14:43 15:18 WBC (4.3-11.1) K/mcL RBC (3.82-4.97) M/mcL Hgb (11.5-15.4) g/dL Hct (35.3-44.9) % MCV (83.0-100.0) fL MCH (28.0-33.3) pg MCHC (31.6-35.5) g/dL RDW (11.5-14.5) % Plt Count (140-400) K/mcL MPV (9.4-12.4) fL Immature Gran % (0-4) % Seg Neutrophils % % Lymphocytes % % Monocytes % % Eosinophils % % Basophils % % Neutrophils # (1.6-8.9) K/mcL Lymphocytes # (0.6-4.6) K/mcL Monocytes # (0.0-1.3) K/mcL Eosinophils # (0.0-0.6) K/mcL Basophils # (0.0-0.2) K/mcL PT (9.4-12.1) Seconds INR APTT (26.0-36.0) Seconds Sodium (136-145) mEq/L Potassium (3.5-4.5) mEq/L Chloride (98-109) mEq/L Carbon Dioxide (19-29) mEq/L BUN (7-20) mg/dL Creatinine (0.57-1.11) mg/dL Est GFR ( Amer) (> 60) Est GFR (Non-Af Amer) (> 60) BUN/Creatinine Ratio (6-26) Glucose (70-99) mg/dL Calculated Osmolality (280-300) Calcium (8.6-10.8) mg/dL Troponin I 0.03 (0-0.03) ng/mL B-Natriuretic Peptide 933 H (0-100) pg/mL TSH (0.350-4.840) mcIU/mL Urine Color Yellow (Yellow) Urine Clarity Clear (Clear) Urine pH 6.0 (5.0-8.0) pH Units Ur Specific [place] 1.013 (1.010-1.025) Urine Protein Negative (Neg-Trace) mg/dL Urine Glucose (UA) Normal (Normal) mg/dL Urine Ketones Negative (Negative) mg/dL Urine Blood Negative (Negative) Urine Nitrite Negative (Negative) Urine Bilirubin Negative (Negative) Urine Urobilinogen Normal (Normal) mg/dL Ur Leukocyte Esterase Negative (Negative) Ur Culture Indicated? NO (NO) - Diagnostic Studies Chest x-ray Additional comments: Chest X-Ray 02/20/17 13:58 IMPRESSION: 1. Cardiomegaly with vascular congestion. D/ / Cm Sun MD / Cm Sun MD Interpreting Provider: Cm Sun MD CT scan - chest Additional comments: Chest CTA 02/20/17 15:31 IMPRESSION: No evidence of pulmonary embolism. Enlarging left apical and right basilar irregular pulmonary nodules consistent with progression of metastatic disease. Subacute fractures of the left posterior lower left ribs. Chronic T6 compression fracture. D/ / 02/20/2017 16:39:07 Moisés Reyes MD / cheryle Interpreting Provider: Moisés Reyes MD <Loraine Iqbal - Last Filed: 02/21/17 00:31> Date of Encounter: 02/21/17 Time of Encounter: 00:30 Internal Medicine - H&P: HPI History of present illness: Ms. Khalil is a 81 year old female All Systems PM: A 10-system review of systems was performed and is negative for pertinent findings except as documented above in the HPI. - Constitutional Vitals: Temp Pulse Resp BP Pulse Ox 97.6 F 96 20 128/61 99 02/21/17 00:13 02/21/17 00:13 02/21/17 00:13 02/21/17 00:13 02/21/17 00:13 Internal Med - H&P Results - Labs CBC & Chem 7: 02/20/17 14:29 02/20/17 14:29 - Attending Attestation Patient independently seen and examined with daughter present at bedside. Admitted for acute respiratory distress secondary to CHF decompensation Continue IV diuresis, bipap support, fluid restriction Monitor I/Os, daily weights Pt reports of feeling significantly better since hospitalization. Case discussed with JACKSON Grace, I agree with her documented findings, assessment, and plan except as listed above
[2017-02-20] MEDS: hydrALAZINE 25 MG TABLET PO SCH (23:41)
[2017-02-20] MEDS: *HR* LORazepam 1 MG TABLET PO PRN (23:41)
[2017-02-21] MEDS: *HR* HYDROcodone/Acet 7.5/325 mg TABLET PO PRN ×2 (00:13→07:14)
[2017-02-21] MEDS: Melatonin 3 MG TABLET PO SCH ×2 (00:13→22:07)
[2017-02-21 04:03] LABS: Basophils % 0.3 %; Hematocrit 30.6 % (35.3-44.9); Lymphocytes # 0.9 K/mcL (0.6-4.6); Lymphocytes % 8.6 %; Mean Corpuscular HGB Conc 29.1 g/dL (31.6-35.5); Mean Corpuscular Hemoglobin 28.6 pg (28.0-33.3); Mean Corpuscular Volume 98.4 fL (83.0-100.0); Mean Platelet Volume 9.6 fL (9.4-12.4); Monocytes # 0.6 K/mcL (0.0-1.3); Monocytes % 5.5 %; Neutrophils # 8.5 K/mcL (1.6-8.9); Platelet Count 194 K/mcL (140-400); Red Blood Count 3.11 M/mcL (3.82-4.97); Red Cell Distribution Width 16.8 % (11.5-14.5); Segmented Neutrophils % 83.6 %
[2017-02-21 04:17] LABS: Hemoglobin 8.9 g/dL (11.5-15.4)
[2017-02-21 04:24] LABS: Calcium 8.7 mg/dL (8.6-10.8); Chol/HDL Ratio 2.5 (0-4.9); Potassium 3.4 mEq/L (3.5-4.5)
[2017-02-21] MEDS: Ipratropium/Albuterol Neb 3 ML IH SCH ×4 (04:26→22:34)
[2017-02-21] MEDS: *HR* Heparin 5,000 UNIT/ML VIAL SQ SCH ×3 (06:48→22:08)
[2017-02-21] MEDS: Tiotropium 18 MCG inhalation IH SCH (08:45)
[2017-02-21] MEDS: Budesonide/Formoterol 160/4.5 MDI IH SCH ×2 (08:58→22:34)
[2017-02-21] MEDS: predniSONE 20 MG TABLET PO SCH (09:19)
[2017-02-21] MEDS: Isosorbide MONOnitrate (24 HR) 60 MG TAB.ER.24H PO SCH (09:21)
[2017-02-21] MEDS: Metoprolol XL (24 HR) Succ 50 MG TAB.ER.24H PO SCH (09:21)
[2017-02-21] MEDS: Furosemide 40 MG/4 ML VIAL IVP SCH ×2 (09:22→16:38)
[2017-02-21] MEDS: Diltiazem CD (24hr) 180 MG CAPSULE PO SCH (09:22)
[2017-02-21] MEDS: hydrALAZINE 25 MG TABLET PO SCH ×3 (09:22→22:07)
[2017-02-21] MEDS: *HR* Morphine 2 MG/ML SYRINGE IVP PRN ×3 (09:27→22:04)
[2017-02-21] MEDS: *HR* LORazepam 1 MG TABLET PO PRN (11:51)
--- NOTE | 2017-02-21 14:30 | Palliative - Consult Note ---
Date of Encounter: 02/21/17 Time of Encounter: 10:30 - Assessment and Plan (1) Vertebral compression fracture Current Visit: Yes Status: Acute Assessment and plan: I believe that this is the source of her chest pain, patient is plan for vertebral plasty was supposed to be done today as an outpatient, however the patient was admitted yesterday with shortness of breath. I commend getting this done as soon as possible. Have made changes to the medications including changing out the Mingus for oxycodone, made morphine at a lower dose available more frequently. The paste placed the patient on a bowel regimen. I believe that her need for pain medication will drop off significantly for the vertebral plasty. Qualifiers: Encounter type: subsequent encounter Fracture healing: with routine healing Qualified Code(s): M48.50XD - Collapsed vertebra, not elsewhere classified, site unspecified, subsequent encounter for fracture with routine healing (2) CHF (congestive heart failure) Current Visit: No Status: Chronic Assessment and plan: The patient is currently being actively diuresed, plan per hospitalist team. Qualifiers: Congestive heart failure type: systolic Congestive heart failure chronicity : chronic Qualified Code(s): I50.22 - Chronic systolic (congestive) heart failure (3) COPD (chronic obstructive pulmonary disease) Current Visit: Yes Status: Chronic Assessment and plan: The patient is being evaluated and treated for this plan per hospitalist team. Qualifiers: COPD type: emphysema Emphysema type: panlobular Qualified Code(s): J43.1 - Panlobular emphysema (4) Goals of care, counseling/discussion Current Visit: No Status: Acute Assessment and plan: Patient is DNR CCA DNI. This was established before continues to be her CODE STATUS. With regards to goals of care, the patient would like to have her prescient fracture addressed her pain dealt with. I have changed rat her pain medication as already noted. I answered questions with regards to hospice and at this time I think the patient and family would like to hospice until after her tuboplasty is done and these pulmonary lesions or dealt with by radiation oncology. I have been clear with her that she is certainly hospice eligible whenever she wants it. Currently revoked from [facility]. I told her that she could easily return to [facility] or she can go with [facility] or [facility] whomever she wanted. Palliative-CN HPI - Data of Consult Patient: known to practice within the last 3 years Requesting Physician: Memo Bah DO Primary Care Provider: Lisbeth Salmon CNP - Consult Narrative Palliative Care/Comfort Measures: Palliative care Reason for consult: Goals of care, hospice questions History of present illness: Ms. Khalil is a 81 year old female Known to me from previous consultation. The patient originally presented with increasing shortness of breath with acute on chronic respiratory failure and hypoxemia as well as congestive heart failure. Has also recently been diagnosed lesions in the lung compatible with lung cancer. Well as a very recent compression fracture of her back. Planes very bitterly of deep pain that radiates around both sides very difficult for her to take a breath. He was due to have a vertebral plasty outpatient today. Given the hospital yesterday due to increasing shortness of breath. He had noticed increasing shortness of breath, productive cough and increased lower extremity swelling over the last week. He is also had periods were she appeared cyanotic. bNP was noted to be elevated to 933. CTA showed no evidence of pulmonary embolism. Irregular pulmonary nodules were consistent with progressing metastatic disease. Date of care was consulted regarding goals of care. The patient has been in hospice in the past. When last I saw her, we get rehabilitation within the family and she will go to decide on hospice. Went to [facility] got her rehabilitation and on discharge went with [facility] hospice. Family is not sure if they wish to continue with [facility] at this point in time they are also not sure if they wish to continue with hospice at this point in time. The patient complains bitterly about the pain that starts off in her back and wraps around both sides of her chest. He medication is effective, however it wears off fairly quickly. Already noted, is that the patient was scheduled for a vertebral plasty this morning as an outpatient. She is also weighing her options with regards to radiation therapy for these pulmonary nodules. CC: Memo Bah DO Increasing shortness of breath Past Med Surg Social Fam HX - Past Medical History Medical history: arthritis, cancer, CHF, COPD, coronary artery disease, dementia , GERD, hyperlipidemia, hypertension, myocardial infarction, osteoporosis, peripheral artery disease, renal disease, other Psychiatric history: anxiety, depression - Past Surgical History Surgical History: cholecystectomy, hysterectomy, orthopedic, other, BHARAHTI/BSO, other - Social History Smoking Status: Former smoker Smokeless Tobacco Status: No Alcohol use: none Drug use: none - Family History Father Living Status: Age at : 70 Cause of : Kidney cancer Hx Family Cardiac Disorders: Yes Hx Family Cancer: Yes (RCC) Mother Living Status: Age at : 67 Cause of : Cancer Hx Family Cardiac Disorders: Yes Hx Family Respiratory Disorders: No Hx Family Cancer: Yes (bladder cancer) Hx Family GI Disorders: No Hx Family Endocrine Disorder: No Hx Family Neuromuscular Disorders: No Hx Family Neurologic Disorders: No Medications and Allergies Budesonide/Formoterol 160/4.5 [Symbicort] 2 puff IH BID 02/20/15 [History] Clopidogrel [Plavix] 75 mg PO DAILY 02/20/15 [History] Tiotropium [Spiriva] 2 puff IH DAILY 02/20/15 [History] Donepezil [Aricept] 10 mg PO HS 04/03/15 [History] Ascorbate Calcium [Vitamin C] 500 mg PO DAILY 07/09/15 [History] Isosorbide MONOnitrate (24 HR) [Imdur] 60 mg PO DAILY 07/09/15 [History] Simvastatin [Zocor] 10 mg PO HS 07/09/15 [History] Melatonin 10 mg PO HS 08/12/16 [History] Albuterol Sulfate [Proair Hfa] 2 puff IH Q4H PRN 10/20/16 [History] Ferrous Sulfate 325 mg PO DAILY 10/20/16 [History] Hydralazine HCl 50 mg PO TID 10/20/16 [History] Nitroglycerin [Nitrostat] 0.4 mg SL Q5M PRN 10/20/16 [History] Oxygen 3 l NS CONT 10/20/16 [History] Sertraline [Zoloft] 100 mg PO DAILY 10/20/16 [History] buPROPion HCl [Bupropion HCl Sr] 200 mg PO BID 10/20/16 [History] LORazepam [Ativan] 1 mg PO BID PRN 11/22/16 [History] Albuterol Neb [Proventil Neb] 2.5 mg IH Q2H PRN #0 inhsol 12/01/16 [Rx] Diltiazem CD (24hr) [Cardizem CD] 360 mg PO DAILY cap.er.24h 12/01/16 [Rx] Ipratropium/Albuterol Neb [Duoneb] 3 ml IH TID inhsol 12/01/16 [Rx] HYDROcodone/Acet 5/325 mg [Mingus 5-325 mg] 2 tab PO Q6H PRN 02/01/17 [History] predniSONE [PredniSONE] 20 mg PO BID 02/01/17 [History] Furosemide [Lasix] 80 mg PO DAILY 02/16/17 [History] Metoprolol XL (24 HR) Succ [Toprol Xl] 100 mg PO DAILY 02/16/17 [History] Morphine Sulfate [Morphine Oral Solution] 0.25 ml PO AD PRN 02/16/17 [History] Pantoprazole Sodium [Protonix] 40 mg PO DAILY 02/16/17 [History] Potassium Chloride [Klor-Con 10] 10 meq PO BID 02/16/17 [History] Furosemide [Lasix] 40 mg PO DAILY 02/20/17 [History] GuaiFENesin ER [Mucinex] 600 mg PO BID PRN 02/20/17 [History] 3 Allergy/AdvReac Type Severity Reaction Status Date / Time citalopram [From Celexa] Allergy Difficulty Verified 02/01/17 09:53 Breathing amlodipine [From Norvasc] AdvReac Difficulty Verified 02/01/17 09:53 Breathing haloperidol [From Haldol] AdvReac Hallucinati Verified 02/01/17 09:53 ng risperidone AdvReac See Verified 02/01/17 09:53 Comments roflumilast [From Daliresp] AdvReac Difficulty Verified 02/01/17 09:53 Breathing - Constitutional Constitutional ROS PAL: fatigue, no decreased appetite, no anorexia - EENT Eyes: no discharge, no pain Ears: no ear discharge, no ear pain Ears, nose, mouth, throat: no facial pain, no hoarseness, no neck mass, no neck pain - Cardiovascular Cardiovascular ROS: chest pain, chest pain with activity, dyspnea on exertion, edema, pedal edema - Respiratory Respiratory: cough, dyspnea, dyspnea on exertion, pain on inspiration, excessive phlegm production - Gastrointestinal Gastrointestinal: no constipation, no diarrhea, no nausea, no vomiting - Genitourinary Palliative ROS female: no urinary frequency, no urinary hesitancy, no urinary incontinence - Musculoskeletal Musculoskeletal ROS IM: back pain, myalgias, no arthralgias, no radiating pain into limb - Integumentary ROS Integumentary: no rash, no skin pain - Neurological Neurological ROS: no confusion, no convulsions, no headache(s), no lack of coordination - Psychiatric Psychiatric general PM: anxiety (Relating back to her pain.), no confusion, no homicidal ideation - Endocrine Endocrine IM: as per HPI (No diabetes or thyroid disease.) Palliative Care-Exam - Constitutional Vitals: Temp Pulse Resp BP Pulse Ox 98.4 F 113 14 114/64 94 02/21/17 11:37 02/21/17 11:37 02/21/17 11:37 02/21/17 11:37 02/21/17 11:37 General appearance: Present: no acute distress - Head Head Exam: Present: atraumatic, normal inspection - Eye Eye exam: Present: EOMI, normal appearance - Respiratory Respiratory exam: Present: decreased breath sounds, rales - Cardiovascular Cardiovascular exam: Present: irregular rhythm - GI/Abdominal Exam GI/Abdominal exam: Present: normal bowel sounds, soft. Absent: tenderness - Catheter Type: Urethral (French) - Extremities Exam Extremities exam: Present: pedal edema. Absent: normal inspection - Neurological Exam Neurological exam: Present: alert - Psychiatric Psychiatric exam: Present: agitated (Only with pain), normal affect, normal mood. Absent: anxious - Skin Skin exam: Present: dry, warm Internal Medicine - CN: Reslt - Labs CBC & Chem 7: 02/21/17 03:21 02/21/17 03:21 Labs: Short CBC 02/21/17 Range/Units 03:21 WBC 10.2 (4.3-11.1) K/mcL Hgb 8.9 L D (11.5-15.4) g/dL Hct 30.6 L (35.3-44.9) % Plt Count 194 (140-400) K/mcL Neutrophils # 8.5 (1.6-8.9) K/mcL BMP 02/21/17 03:21 Sodium 146 H Potassium 3.4 L Chloride 105 Carbon Dioxide 32 H BUN 38 H Creatinine 1.07 Glucose 141 H Calcium 8.7 - ABG Interpretation ABG results: PT/INR, D-dimer PT 10.2 Seconds (9.4-12.1) 02/20/17 14:28 Consult Discharge Plan - Plan Referrals: Lisbeth Salmon, SALES ACCOUNT MANAGER [Primary Care Provider] - 03/22/17 1:20 pm Palliative Quality Palliative Quality: Screen for Code Status: Yes, Screen for Goals of Care: Yes, Screen for Pain: Yes, If Pain Regimen Started, Initiate Bowel Regimen: Yes, Screen for Nausea/Vomitting: Yes Code Status: 02/20/17 23:28 Resuscitation Status: Active [RES] Routine Comment: Resuscitation Status: [id number]
--- NOTE | 2017-02-21 17:39 | Internal Med Progress Note ---
<Arin Vazquez - Last Filed: 02/21/17 17:37> Date of Encounter: 02/21/17 Time of Encounter: 17:37 - Assessment and plan (1) Acute and chronic respiratory failure with hypoxia Current Visit: Yes Status: Acute Assessment and plan: Patient uses oxygen at home, but presented with acute respiratory failure secondary to CHF exacerbation and required BiPAP on admission. Will treat CHF exacerbation. (2) Acute on chronic congestive heart failure Current Visit: Yes Status: Acute Assessment and plan: Daily weights Cardiac diet with 1.5L fluid restriction Strict I/Os Lasix 60 mg IV BID Qualifiers: Congestive heart failure type: diastolic Qualified Code(s): I50.33 - Acute on chronic diastolic (congestive) heart failure (3) Vertebral compression fracture Current Visit: Yes Status: Chronic Assessment and plan: Known vertebral compression fracture causing significant pain; patient was originally scheduled for vertebroplasty outpatient today. Attempted to contact IR to schedule inpatient vertebroplasty; will continue attempts to contact IR to set up vertebroplasty while patient is inpatient. Continue to hold Plavix. Pain medication adjusted by palliative care, appreciate input. Qualifiers: Encounter type: subsequent encounter Fracture healing: with routine healing Qualified Code(s): M48.50XD - Collapsed vertebra, not elsewhere classified, site unspecified, subsequent encounter for fracture with routine healing (4) COPD (chronic obstructive pulmonary disease) Current Visit: Yes Status: Chronic Assessment and plan: Continue home medications DuoNeb treatments QID Albuterol Q2 PRN Qualifiers: COPD type: emphysema Emphysema type: panlobular Qualified Code(s): J43.1 - Panlobular emphysema (5) Anxiety Current Visit: Yes Status: Chronic Assessment and plan: Patient severe anxiety associated with her dyspnea. Continue home Ativan - Subjective Interval history: Patient complaining of back pain. Also with shortness of breath, "I feel like I cannot eat because I will be smothered if I eat." - Constitutional Vitals: Temp Pulse Resp BP Pulse Ox 98.3 F 96 12 148/79 94 02/21/17 16:07 02/21/17 16:07 02/21/17 16:07 02/21/17 16:07 02/21/17 16:07 General appearance: Present: A&O X 3, pleasant, no acute distress - Head Head exam: Present: atraumatic, normocephalic - Eye Eye exam: Present: PERRL, conjuntiva pink, sclera anicteric Pupils: Present: PERRL - Neck Neck exam general surgery: Present: supple, trachea midline - Respiratory Respiratory exam: Present: decreased breath sounds, wheezes (Throughout) - Cardiovascular Cardiovascular exam: Present: irregular rhythm, +S1, +S2 - GI/Abdominal GI/Abdominal exam: Present: hernia (Large epigastric), normal bowel sounds, soft - Extremities Exam Extremities exam: Present: pedal edema (2+, to the knee), warm. Absent: tenderness - Neurological Exam Neurological exam: Present: alert. Absent: facial droop, speech deficit - Psychiatric Psychiatric exam: Present: anxious - Skin Skin exam: Absent: intact, normal color (Evidence of chronic venous stasis bilateral lower extremities) Internal Medicine: Result - Labs CBC & Chem 7: 02/21/17 03:21 02/21/17 03:21 Labs: Short CBC 02/21/17 Range/Units 03:21 WBC 10.2 (4.3-11.1) K/mcL Hgb 8.9 L D (11.5-15.4) g/dL Hct 30.6 L (35.3-44.9) % Plt Count 194 (140-400) K/mcL Neutrophils # 8.5 (1.6-8.9) K/mcL BMP 02/21/17 03:21 Sodium 146 H Potassium 3.4 L Chloride 105 Carbon Dioxide 32 H BUN 38 H Creatinine 1.07 Glucose 141 H Calcium 8.7 - ABG Interpretation ABG results: PT/INR, D-dimer PT 10.2 Seconds (9.4-12.1) 02/20/17 14:28 Consult Discharge Plan - Plan Referrals: Lisbeth Salmon, TRANSLATOR [Primary Care Provider] - 03/22/17 1:20 pm <Memo Bah - Last Filed: 02/21/17 19:22> Date of Encounter: 02/21/17 - Assessment and plan (1) Acute and chronic respiratory failure with hypoxia Current Visit: Yes Status: Acute (2) Acute on chronic congestive heart failure Current Visit: Yes Status: Acute Qualifiers: Congestive heart failure type: diastolic Qualified Code(s): I50.33 - Acute on chronic diastolic (congestive) heart failure (3) Vertebral compression fracture Current Visit: Yes Status: Chronic Qualifiers: Encounter type: subsequent encounter Fracture healing: with routine healing Qualified Code(s): M48.50XD - Collapsed vertebra, not elsewhere classified, site unspecified, subsequent encounter for fracture with routine healing (4) Emphysema lung Current Visit: Yes Status: Acute Qualifiers: Emphysema type: panlobular Qualified Code(s): J43.1 - Panlobular emphysema - Constitutional Vitals: Temp Pulse Resp BP Pulse Ox 98.3 F 96 12 148/79 94 02/21/17 16:07 02/21/17 16:07 02/21/17 16:07 02/21/17 16:07 02/21/17 16:07 Internal Medicine: Result - Labs CBC & Chem 7: 02/21/17 03:21 02/21/17 03:21 Labs: Short CBC 02/21/17 Range/Units 03:21 WBC 10.2 (4.3-11.1) K/mcL Hgb 8.9 L D (11.5-15.4) g/dL Hct 30.6 L (35.3-44.9) % Plt Count 194 (140-400) K/mcL Neutrophils # 8.5 (1.6-8.9) K/mcL BMP 02/21/17 03:21 Sodium 146 H Potassium 3.4 L Chloride 105 Carbon Dioxide 32 H BUN 38 H Creatinine 1.07 Glucose 141 H Calcium 8.7 - ABG Interpretation ABG results: PT/INR, D-dimer PT 10.2 Seconds (9.4-12.1) 02/20/17 14:28 - Attending Attestation I examined this patient and my medical decision-making was reviewed with the Resident Physician on 02/21/17. I agree with the documented findings, disposition and treatment plan as described except to the extent set forth below. Ms Khalil is currently admitted for acute resp failure and CHF. She remains moderate to high risk due to potential for worsening respiratory and cardiac issues. Ms. Khalil is resting comfortably. No fever or chills. Breathing somewhat better. Pain an issue - needs vertebroplasty. Exam Alert. mod distress due to pain Heart reg No wheeze Abd soft I/P 1. Hypoxia 2. CHF Further diagnoses and plan as above
--- NOTE | 2017-02-21 19:06 | Electrocardiograph Report ---
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
[2017-02-21] MEDS: Sennosides/Docusate Sodium TABLET PO SCH (22:07)
[2017-02-22] MEDS: *HR* Morphine 2 MG/ML SYRINGE IVP PRN ×2 (01:54→05:47)
[2017-02-22 04:03] LABS: Basophils % 0.1 %; Eosinophils % 0.2 %; Hematocrit 32.2 % (35.3-44.9); Hemoglobin 9.6 g/dL (11.5-15.4); Immature Granulocytes % 1.3 % (0-4); Lymphocytes # 1.1 K/mcL (0.6-4.6); Lymphocytes % 8.7 %; Mean Corpuscular HGB Conc 29.8 g/dL (31.6-35.5); Mean Corpuscular Hemoglobin 29.7 pg (28.0-33.3); Mean Corpuscular Volume 99.7 fL (83.0-100.0); Mean Platelet Volume 9.8 fL (9.4-12.4); Monocytes # 0.7 K/mcL (0.0-1.3); Neutrophils # 10.9 K/mcL (1.6-8.9); Platelet Count 203 K/mcL (140-400); Red Blood Count 3.23 M/mcL (3.82-4.97); Red Cell Distribution Width 17.1 % (11.5-14.5); Segmented Neutrophils % 84.7 %
[2017-02-22 04:20] LABS: BUN/Creatinine Ratio 34 (6-26); Blood Urea Nitrogen 35 mg/dL (7-20); Carbon Dioxide 33 mEq/L (19-29); Chloride 104 mEq/L (98-109); Glucose 98 mg/dL (70-99); Osmolality,Calculated 312 (280-300); Potassium 3.7 mEq/L (3.5-4.5); Sodium 147 mEq/L (136-145); eGFR For African Americans > 60 (> 60); eGFR For Non-African Americans 52 (> 60)
[2017-02-22] MEDS: Ipratropium/Albuterol Neb 3 ML IH SCH ×4 (04:29→23:35)
[2017-02-22] MEDS: *HR* Heparin 5,000 UNIT/ML VIAL SQ SCH ×3 (05:47→20:51)
[2017-02-22] MEDS: Tiotropium 18 MCG inhalation IH SCH (08:09)
[2017-02-22] MEDS: hydrALAZINE 25 MG TABLET PO SCH ×3 (09:18→19:47)
[2017-02-22] MEDS: predniSONE 20 MG TABLET PO SCH (09:18)
[2017-02-22] MEDS: Diltiazem CD (24hr) 180 MG CAPSULE PO SCH (09:18)
[2017-02-22] MEDS: Sennosides/Docusate Sodium TABLET PO SCH ×2 (09:19→19:47)
[2017-02-22] MEDS: Metoprolol XL (24 HR) Succ 50 MG TAB.ER.24H PO SCH (09:19)
[2017-02-22] MEDS: Furosemide 40 MG/4 ML VIAL IVP SCH ×2 (09:19→18:17)
[2017-02-22] MEDS: Isosorbide MONOnitrate (24 HR) 60 MG TAB.ER.24H PO SCH (09:19)
[2017-02-22] MEDS: *HR* LORazepam 1 MG TABLET PO PRN (09:20)
--- NOTE | 2017-02-22 09:29 | Palliative Progress Note ---
Date of Encounter: 02/22/17 Time of Encounter: 08:50 - Assessment and plan (1) Vertebral compression fracture Current Visit: Yes Status: Chronic Assessment and plan: Treatment team is working with IR with regards to vertebral plasty. Indications appear to be effective at this time no changes recommended Qualifiers: Encounter type: subsequent encounter Fracture healing: with routine healing Qualified Code(s): M48.50XD - Collapsed vertebra, not elsewhere classified, site unspecified, subsequent encounter for fracture with routine healing (2) CHF (congestive heart failure) Current Visit: No Status: Chronic Assessment and plan: [facility] team is addressing aggressively. Is in line with the patient's wishes. Qualifiers: Congestive heart failure type: systolic Congestive heart failure chronicity : chronic Qualified Code(s): I50.22 - Chronic systolic (congestive) heart failure (3) COPD (chronic obstructive pulmonary disease) Current Visit: Yes Status: Chronic Assessment and plan: Treatment per Qualifiers: COPD type: emphysema Emphysema type: panlobular Qualified Code(s): J43.1 - Panlobular emphysema (4) Goals of care, counseling/discussion Current Visit: No Status: Acute Assessment and plan: CODE STATUS is established DNR CCA DNI. She has been a patient of [facility]. At this time it appears that the patient and the family do not wish to continue with [facility] hospice will probably stop hospice altogether until such time as the patient has had radiation therapy for the lesions in her lung. At that time, they will decide on a still wishes to have hospice and if so with whom they wish to go. (5) Dyspnea Current Visit: Yes Status: Acute Assessment and plan: The patient does seem to have a certain level of anxiety associated with the dyspnea. The morphine does help this, however I believe that a very low dose of background Ativan may be very helpful for her while she is in the hospital. I have therefore written for 0.25 mg Ativan 4 times a day hold for sedation and discussed this with the treatment team. Qualifiers: Dyspnea type: shortness of breath Qualified Code(s): R06.02 - Shortness of breath; R06.00 - Dyspnea, unspecified; R06.01 - Orthopnea - Time Spent With Patient Total time spent is greater than 50% in coordination of care (as documented) at patient's floor/unit and/or counseling patient: - Subjective Interval history: Patient having difficulty with breathing this morning difficulty with anxiety but pain is under good control pain medications appear to be working well. - Constitutional Vitals: Abnormal lab results WBC 12.9 K/mcL (4.3-11.1) H 02/22/17 03:32 RBC 3.23 M/mcL (3.82-4.97) L 02/22/17 03:32 Hgb 9.6 g/dL (11.5-15.4) L 02/22/17 03:32 Hct 32.2 % (35.3-44.9) L 02/22/17 03:32 MCHC 29.8 g/dL (31.6-35.5) L 02/22/17 03:32 RDW 17.1 % (11.5-14.5) H 02/22/17 03:32 Neutrophils # 10.9 K/mcL (1.6-8.9) H 02/22/17 03:32 APTT 23.5 Seconds (26.0-36.0) L 02/20/17 14:28 Sodium 147 mEq/L (136-145) H 02/22/17 03:32 Carbon Dioxide 33 mEq/L (19-29) H 02/22/17 03:32 BUN 35 mg/dL (7-20) H 02/22/17 03:32 Est GFR (Non-Af Amer) 52 (> 60) L 02/22/17 03:32 BUN/Creatinine Ratio 34 (6-26) H 02/22/17 03:32 Calculated Osmolality 312 (280-300) H 02/22/17 03:32 B-Natriuretic Peptide 933 pg/mL (0-100) H 02/20/17 14:43 General appearance: Present: mild distress (Secondary to shortness of breath) - Head Head exam: Present: atraumatic, normal inspection - Eye Eye exam: Present: normal appearance - ENT ENT exam: Present: mucous membranes moist - Neck Neck exam: Present: normal inspection - Respiratory Respiratory exam: Present: decreased breath sounds, rhonchi - Cardiovascular Cardiovascular exam: Present: irregular rhythm - GI/Abdominal GI/Abdominal exam: Present: normal bowel sounds, soft - Extremities Exam Extremities exam: Present: pedal edema. Absent: normal inspection, tenderness - Neurological Exam Neurological exam: Present: alert, oriented X3 - Psychiatric Psychiatric exam: Present: normal affect, normal mood. Absent: agitated, anxious - Skin Skin exam: Present: dry, warm Palliative Quality Palliative Quality: Screen for Code Status: Yes, Screen for Goals of Care: Yes, Screen for Pain: Yes, If Pain Regimen Started, Initiate Bowel Regimen: Yes, Screen for Nausea/Vomitting: Yes Code Status: 02/20/17 23:28 Resuscitation Status: Active [RES] Routine Comment: Resuscitation Status: [id number] - Labs CBC & Chem 7: 02/22/17 03:32 02/22/17 03:32 Labs: Laboratory Results - last 24 hr 02/22/17 02/22/17 03:32 03:32 WBC 12.9 H RBC 3.23 L Hgb 9.6 L Hct 32.2 L MCV 99.7 MCH 29.7 MCHC 29.8 L RDW 17.1 H Plt Count 203 MPV 9.8 Immature Gran % 1.3 Seg Neutrophils % 84.7 Lymphocytes % 8.7 Monocytes % 5.0 Eosinophils % 0.2 Basophils % 0.1 Neutrophils # 10.9 H Lymphocytes # 1.1 Monocytes # 0.7 Eosinophils # 0.0 Basophils # 0.0 Sodium 147 H Potassium 3.7 Chloride 104 Carbon Dioxide 33 H BUN 35 H Creatinine 1.02 Est GFR ( Amer) > 60 Est GFR (Non-Af Amer) 52 L BUN/Creatinine Ratio 34 H Glucose 98 Calculated Osmolality 312 H Calcium 9.0 - ABG Interpretation ABG results: PT/INR, D-dimer PT 10.2 Seconds (9.4-12.1) 02/20/17 14:28 Consult Discharge Plan - Plan Referrals: Lisbeth Salmon CNP [Primary Care Provider] - 03/22/17 1:20 pm
[2017-02-22] MEDS: Budesonide/Formoterol 160/4.5 MDI IH SCH ×2 (10:20→23:35)
[2017-02-22] MEDS: *HR* LORazepam 0.5 MG TABLET PO SCH ×3 (12:39→19:47)
--- NOTE | 2017-02-22 19:38 | Internal Med Progress Note ---
<Arin Vazquez - Last Filed: 02/22/17 19:36> Date of Encounter: 02/22/17 Time of Encounter: 19:36 - Assessment and plan (1) Acute and chronic respiratory failure with hypoxia Current Visit: Yes Status: Acute Assessment and plan: Patient uses oxygen at home, but presented with acute respiratory failure secondary to CHF exacerbation and required BiPAP on admission. BIPAP PRN continue supplemental O2 via NC (2) Acute on chronic congestive heart failure Current Visit: Yes Status: Acute Assessment and plan: Daily weights Cardiac diet with 1.5L fluid restriction Strict I/Os Lasix 60 mg IV BID Qualifiers: Congestive heart failure type: diastolic Qualified Code(s): I50.33 - Acute on chronic diastolic (congestive) heart failure (3) Vertebral compression fracture Current Visit: Yes Status: Chronic Assessment and plan: Known vertebral compression fracture causing significant pain; patient was originally scheduled for vertebroplasty outpatient 02/21. Attempted vertebroplasty today; not completed due to patient dyspnea. Continue to hold Plavix. Pain medication adjusted by palliative care, appreciate input. Qualifiers: Encounter type: subsequent encounter Fracture healing: with routine healing Qualified Code(s): M48.50XD - Collapsed vertebra, not elsewhere classified, site unspecified, subsequent encounter for fracture with routine healing (4) COPD (chronic obstructive pulmonary disease) Current Visit: Yes Status: Chronic Assessment and plan: Continue home medications DuoNeb treatments QID Albuterol Q2 PRN Qualifiers: COPD type: emphysema Emphysema type: panlobular Qualified Code(s): J43.1 - Panlobular emphysema (5) Anxiety Current Visit: Yes Status: Chronic Assessment and plan: Patient severe anxiety associated with her dyspnea. Ativan scheduled - Subjective Interval history: Patient still with shortness of breath, feels as if she cannot breathe. - Constitutional Vitals: Temp Pulse Resp BP Pulse Ox 97.6 F 102 14 122/74 94 02/22/17 16:43 02/22/17 16:43 02/22/17 16:43 02/22/17 16:43 02/22/17 16:43 General appearance: Present: A&O X 3, pleasant, no acute distress - Head Head exam: Present: atraumatic, normocephalic - Eye Eye exam: Present: PERRL, conjuntiva pink, sclera anicteric Pupils: Present: PERRL - Neck Neck exam general surgery: Present: supple, trachea midline - Respiratory Respiratory exam: Present: decreased breath sounds, wheezes (throughout) - Cardiovascular Cardiovascular exam: Present: irregular rhythm, +S1, +S2 - GI/Abdominal GI/Abdominal exam: Present: hernia (large epigastric, reducible), normal bowel sounds, soft. Absent: tenderness - Extremities Exam Extremities exam: Present: pedal edema (2+), warm - Neurological Exam Neurological exam: Present: alert, oriented X3. Absent: facial droop, speech deficit - Skin Skin exam: Absent: normal color (evidence of chronic venous stasis) Internal Medicine: Result - Labs CBC & Chem 7: 02/22/17 03:32 02/22/17 03:32 Labs: Short CBC 02/22/17 Range/Units 03:32 WBC 12.9 H (4.3-11.1) K/mcL Hgb 9.6 L (11.5-15.4) g/dL Hct 32.2 L (35.3-44.9) % Plt Count 203 (140-400) K/mcL Neutrophils # 10.9 H (1.6-8.9) K/mcL BMP 02/22/17 03:32 Sodium 147 H Potassium 3.7 Chloride 104 Carbon Dioxide 33 H BUN 35 H Creatinine 1.02 Glucose 98 Calcium 9.0 - ABG Interpretation ABG results: PT/INR, D-dimer PT 10.2 Seconds (9.4-12.1) 02/20/17 14:28 Consult Discharge Plan - Plan Referrals: Lisbeth Salmon, ELECTRONICS ENGINEERING PROFESSOR [Primary Care Provider] - 03/22/17 1:20 pm <Memo Bah - Last Filed: 02/22/17 21:53> Date of Encounter: 02/22/17 - Assessment and plan (1) Acute and chronic respiratory failure with hypoxia Current Visit: Yes Status: Acute (2) Acute on chronic congestive heart failure Current Visit: Yes Status: Acute Qualifiers: Congestive heart failure type: diastolic Qualified Code(s): I50.33 - Acute on chronic diastolic (congestive) heart failure (3) Vertebral compression fracture Current Visit: Yes Status: Chronic Qualifiers: Encounter type: subsequent encounter Fracture healing: with routine healing Qualified Code(s): M48.50XD - Collapsed vertebra, not elsewhere classified, site unspecified, subsequent encounter for fracture with routine healing (4) Emphysema lung Current Visit: Yes Status: Acute Qualifiers: Emphysema type: panlobular Qualified Code(s): J43.1 - Panlobular emphysema - Constitutional Vitals: Temp Pulse Resp BP Pulse Ox 97.6 F 102 14 122/74 94 02/22/17 16:43 02/22/17 16:43 02/22/17 16:43 02/22/17 16:43 02/22/17 16:43 Internal Medicine: Result - Labs CBC & Chem 7: 02/22/17 03:32 02/22/17 03:32 Labs: Short CBC 02/22/17 Range/Units 03:32 WBC 12.9 H (4.3-11.1) K/mcL Hgb 9.6 L (11.5-15.4) g/dL Hct 32.2 L (35.3-44.9) % Plt Count 203 (140-400) K/mcL Neutrophils # 10.9 H (1.6-8.9) K/mcL BMP 02/22/17 03:32 Sodium 147 H Potassium 3.7 Chloride 104 Carbon Dioxide 33 H BUN 35 H Creatinine 1.02 Glucose 98 Calcium 9.0 - ABG Interpretation ABG results: PT/INR, D-dimer PT 10.2 Seconds (9.4-12.1) 02/20/17 14:28 - Attending Attestation I examined this patient and my medical decision-making was reviewed with the Resident Physician on 02/22/17. I agree with the documented findings, disposition and treatment plan as described except to the extent set forth below. Ms Khalil is currently admitted for hypoxia and dyspnea. She remains moderate to high risk due to potential for worsening respiratory status. Ms Khalil was to have procedure today but was too dyspneic. Anxious. Better pain control. Exam Alert Mod dyspnea. Mucus membranes moist Heart reg Diffuse rhonchi I/P 1. Dyspnea persists 2. Vertebral fracture. Further diagnoses and plan as above.
[2017-02-22] MEDS: Melatonin 3 MG TABLET PO SCH (19:47)
[2017-02-23] MEDS: *HR* OxyCODONE Immed Rel 5 MG TABLET PO PRN ×2 (03:40→09:07)
[2017-02-23] MEDS: Ipratropium/Albuterol Neb 3 ML IH SCH ×4 (03:57→22:39)
[2017-02-23 04:01] LABS: Basophils % 0.3 %; Eosinophils % 0.1 %; Hematocrit 33.9 % (35.3-44.9); Hemoglobin 10.2 g/dL (11.5-15.4); Immature Granulocytes % 1.3 % (0-4); Lymphocytes % 8.4 %; Mean Corpuscular HGB Conc 30.1 g/dL (31.6-35.5); Mean Corpuscular Hemoglobin 29.5 pg (28.0-33.3); Mean Platelet Volume 10.1 fL (9.4-12.4); Monocytes # 0.6 K/mcL (0.0-1.3); Monocytes % 5.1 %; Neutrophils # 9.9 K/mcL (1.6-8.9); Nucleated Red Blood Cells 0.3 /100 WBC (0); Platelet Count 219 K/mcL (140-400); Red Blood Count 3.46 M/mcL (3.82-4.97); Red Cell Distribution Width 16.7 % (11.5-14.5); Segmented Neutrophils % 84.8 %
[2017-02-23 04:08] LABS: BUN/Creatinine Ratio 35 (6-26); Blood Urea Nitrogen 34 mg/dL (7-20); Calcium 9.2 mg/dL (8.6-10.8); Carbon Dioxide 31 mEq/L (19-29); Chloride 104 mEq/L (98-109); Glucose 92 mg/dL (70-99); Osmolality,Calculated 311 (280-300); Potassium 3.9 mEq/L (3.5-4.5); Sodium 147 mEq/L (136-145); eGFR For African Americans > 60 (> 60); eGFR For Non-African Americans 55 (> 60)
[2017-02-23] MEDS: *HR* Heparin 5,000 UNIT/ML VIAL SQ SCH ×3 (05:57→20:48)
[2017-02-23] MEDS: Furosemide 40 MG/4 ML VIAL IVP SCH (08:43)
[2017-02-23] MEDS: Metoprolol XL (24 HR) Succ 50 MG TAB.ER.24H PO SCH (08:44)
[2017-02-23] MEDS: Diltiazem CD (24hr) 180 MG CAPSULE PO SCH (08:44)
[2017-02-23] MEDS: predniSONE 20 MG TABLET PO SCH (08:44)
[2017-02-23] MEDS: hydrALAZINE 25 MG TABLET PO SCH ×3 (08:44→20:47)
[2017-02-23] MEDS: Isosorbide MONOnitrate (24 HR) 60 MG TAB.ER.24H PO SCH (08:45)
[2017-02-23] MEDS: *HR* LORazepam 1 MG TABLET PO PRN (08:45)
[2017-02-23] MEDS: *HR* LORazepam 0.5 MG TABLET PO SCH ×4 (09:17→20:47)
[2017-02-23] MEDS: Sennosides/Docusate Sodium TABLET PO SCH ×2 (09:35→20:48)
--- NOTE | 2017-02-23 09:35 | Palliative Progress Note ---
Date of Encounter: 02/23/17 Time of Encounter: 07:50 - Assessment and plan (1) Vertebral compression fracture Current Visit: Yes Status: Chronic Assessment and plan: Treatment team is working with IR with regards to vertebral plasty. Not able to do yesterday secondary to shortness of breath. Pain medications appear to be effective. Waiting for Vertebral plasty Qualifiers: Encounter type: subsequent encounter Fracture healing: with routine healing Qualified Code(s): M48.50XD - Collapsed vertebra, not elsewhere classified, site unspecified, subsequent encounter for fracture with routine healing (2) CHF (congestive heart failure) Current Visit: No Status: Chronic Assessment and plan: [place] team is addressing aggressively. Is in line with the patient's wishes. Qualifiers: Congestive heart failure type: systolic Congestive heart failure chronicity : chronic Qualified Code(s): I50.22 - Chronic systolic (congestive) heart failure (3) COPD (chronic obstructive pulmonary disease) Current Visit: Yes Status: Chronic Assessment and plan: Treatment per hospitalist team Qualifiers: COPD type: emphysema Emphysema type: panlobular Qualified Code(s): J43.1 - Panlobular emphysema (4) Goals of care, counseling/discussion Current Visit: No Status: Acute Assessment and plan: CODE STATUS is established DNR CCA DNI. She has been a patient of [facility]. At this time it appears that the patient and the family do not wish to continue with [facility] will probably stop hospice altogether until such time as the patient has had radiation therapy for the lesions in her lung. At that time, they will decide on a still wishes to have hospice and if so with whom they wish to go. (5) Dyspnea Current Visit: Yes Status: Acute Assessment and plan: The patient does seem to have a certain level of anxiety associated with the dyspnea. The morphine does help this, however I believe that a very low dose of background Ativan may be very helpful for her while she is in the hospital. At 0.25 patient got 2 doses yesterday refused 1, she stated that she was not even where she was getting it. Her for increased to 0.5 and discussed with the hospitalist team. I am reluctant to increase his scheduled medication for this kind of problem anymore than that. The when necessary's to continue to be available Aggressive bowel regimen was instituted due to the opiates patient was getting and my concern about her becoming dyspneic while straining at the stool. The patient is now having loose stools I have backed off the bowel regimen to one twice a day. Also written instructions to hold for loose bowel movements are greater than 2 bowel movements per day. Qualifiers: Dyspnea type: shortness of breath Qualified Code(s): R06.02 - Shortness of breath; R06.00 - Dyspnea, unspecified; R06.01 - Orthopnea - Time Spent With Patient Total time spent is greater than 50% in coordination of care (as documented) at patient's floor/unit and/or counseling patient: - Subjective Interval history: Patient having difficulty with breathing this morning, but less so than yesterday difficulty with anxiety cannot really tell that the Ativan is doing much for her at this time but pain is under good control pain medications appear to be working well. - Constitutional Vitals: Abnormal lab results WBC 11.6 K/mcL (4.3-11.1) H 02/23/17 03:14 RBC 3.46 M/mcL (3.82-4.97) L 02/23/17 03:14 Hgb 10.2 g/dL (11.5-15.4) L 02/23/17 03:14 Hct 33.9 % (35.3-44.9) L 02/23/17 03:14 MCHC 30.1 g/dL (31.6-35.5) L 02/23/17 03:14 RDW 16.7 % (11.5-14.5) H 02/23/17 03:14 Neutrophils # 9.9 K/mcL (1.6-8.9) H 02/23/17 03:14 Nucleated RBCs/100 WBC 0.3 /100 WBC (0) H 02/23/17 03:14 APTT 23.5 Seconds (26.0-36.0) L 02/20/17 14:28 Sodium 147 mEq/L (136-145) H 02/23/17 03:14 Carbon Dioxide 31 mEq/L (19-29) H 02/23/17 03:14 BUN 34 mg/dL (7-20) H 02/23/17 03:14 Est GFR (Non-Af Amer) 55 (> 60) L 02/23/17 03:14 BUN/Creatinine Ratio 35 (6-26) H 02/23/17 03:14 Calculated Osmolality 311 (280-300) H 02/23/17 03:14 B-Natriuretic Peptide 933 pg/mL (0-100) H 02/20/17 14:43 General appearance: Present: mild distress (Less so than yesterday) - Head Head exam: Present: atraumatic, normal inspection - Eye Eye exam: Present: normal appearance - Respiratory Respiratory exam: Present: decreased breath sounds, rhonchi (But improved from yesterday) - Cardiovascular Cardiovascular exam: Present: RRR, tachycardia - GI/Abdominal GI/Abdominal exam: Present: hernia (Hernia easily reducible), normal bowel sounds, soft. Absent: tenderness (Hernia easily reducible) - Extremities Exam Extremities exam: Present: pedal edema - Neurological Exam Neurological exam: Present: alert, oriented X3 - Psychiatric Psychiatric exam: Present: anxious. Absent: agitated - Skin Skin exam: Present: dry, warm Palliative Quality Palliative Quality: Screen for Code Status: Yes, Screen for Goals of Care: Yes, Screen for Pain: Yes, If Pain Regimen Started, Initiate Bowel Regimen: Yes, Screen for Nausea/Vomitting: Yes Code Status: 02/20/17 23:28 Resuscitation Status: Active [RES] Routine Comment: Resuscitation Status: [id number] - Labs CBC & Chem 7: 02/23/17 03:14 02/23/17 03:14 Labs: Laboratory Results - last 24 hr 02/23/17 02/23/17 03:14 03:14 WBC 11.6 H RBC 3.46 L Hgb 10.2 L Hct 33.9 L MCV 98.0 MCH 29.5 MCHC 30.1 L RDW 16.7 H Plt Count 219 MPV 10.1 Immature Gran % 1.3 Seg Neutrophils % 84.8 Lymphocytes % 8.4 Monocytes % 5.1 Eosinophils % 0.1 Basophils % 0.3 Neutrophils # 9.9 H Lymphocytes # 1.0 Monocytes # 0.6 Eosinophils # 0.0 Basophils # 0.0 Nucleated RBCs/100 WBC 0.3 H Sodium 147 H Potassium 3.9 Chloride 104 Carbon Dioxide 31 H BUN 34 H Creatinine 0.97 Est GFR ( Amer) > 60 Est GFR (Non-Af Amer) 55 L BUN/Creatinine Ratio 35 H Glucose 92 Calculated Osmolality 311 H Calcium 9.2 - ABG Interpretation ABG results: PT/INR, D-dimer PT 10.2 Seconds (9.4-12.1) 02/20/17 14:28 Consult Discharge Plan - Plan Referrals: Lisbeth Salmon CNP [Primary Care Provider] - 03/22/17 1:20 pm
--- NOTE | 2017-02-23 10:03 | Internal Med Progress Note ---
<Arin Vazquez - Last Filed: 02/23/17 10:16> Date of Encounter: 02/23/17 Time of Encounter: 10:01 - Assessment and plan (1) Acute and chronic respiratory failure with hypoxia Current Visit: Yes Status: Acute Assessment and plan: Patient uses oxygen at home, but presented with acute respiratory failure secondary to CHF exacerbation and required BiPAP on admission. BIPAP PRN Treat CHF exacerbation Treat pain and anxiety (2) Acute on chronic congestive heart failure Current Visit: Yes Status: Acute Assessment and plan: Daily weights Cardiac diet with 1.5L fluid restriction Strict I/Os Lasix 60 mg IV BID Qualifiers: Congestive heart failure type: diastolic Qualified Code(s): I50.33 - Acute on chronic diastolic (congestive) heart failure (3) Vertebral compression fracture Current Visit: Yes Status: Chronic Assessment and plan: Known T6 vertebral compression fracture causing significant pain; patient was originally scheduled for vertebroplasty outpatient 02/21. Attempted vertebroplasty 02/22; not completed due to patient dyspnea. We will attempt to schedule with IR for 02/23. Continue to hold Plavix. Pain medications have been adjusted by palliative care; appreciate recommendations Qualifiers: Encounter type: subsequent encounter Fracture healing: with routine healing Qualified Code(s): M48.50XD - Collapsed vertebra, not elsewhere classified, site unspecified, subsequent encounter for fracture with routine healing (4) COPD (chronic obstructive pulmonary disease) Current Visit: Yes Status: Chronic Assessment and plan: Continue home medications DuoNeb treatments QID Albuterol Q2 PRN Qualifiers: COPD type: emphysema Emphysema type: panlobular Qualified Code(s): J43.1 - Panlobular emphysema (5) Anxiety Current Visit: Yes Status: Chronic Assessment and plan: Patient severe anxiety associated with her dyspnea. Palliative care on board, appreciate recommendations Ativan 0.5 mg QID scheduled; 1mg BID PRN (6) Lung nodule Current Visit: Yes Status: Acute Assessment and plan: bilateral lung nodules enlarging on CT; PET/CT also showed lesion in right sphenoid patient plans to have radiation therapy - Subjective Interval history: Patient dyspnea improved this morning. Pain in back increased. Still with anxiety. - Constitutional Vitals: Temp Pulse Resp BP Pulse Ox 98.1 F 112 18 137/75 91 02/23/17 06:49 02/23/17 06:49 02/23/17 06:49 02/23/17 04:00 02/23/17 06:49 General appearance: Present: A&O X 3, pleasant, no acute distress - Head Head exam: Present: atraumatic, normocephalic - Eye Eye exam: Present: PERRL, conjuntiva pink, sclera anicteric Pupils: Present: PERRL - Neck Neck exam general surgery: Present: supple, trachea midline - Respiratory Respiratory exam: Present: decreased breath sounds, wheezes (scattered) - Cardiovascular Cardiovascular exam: Present: irregular rhythm, +S1, +S2 - GI/Abdominal GI/Abdominal exam: Present: hernia (large epigastric, reducible), normal bowel sounds, soft. Absent: tenderness - Extremities Exam Extremities exam: Present: pedal edema (2+ to the knee), warm. Absent: tenderness Additional comments: Evidence of chronic venous stasis - Neurological Exam Neurological exam: Present: CN II-XII intact, oriented X3, no focal deficits. Absent: pronater drift, facial droop, speech deficit - Skin Skin exam: Present: dry, intact Internal Medicine: Result - Labs CBC & Chem 7: 02/23/17 03:14 02/23/17 03:14 Labs: Short CBC 02/23/17 Range/Units 03:14 WBC 11.6 H (4.3-11.1) K/mcL Hgb 10.2 L (11.5-15.4) g/dL Hct 33.9 L (35.3-44.9) % Plt Count 219 (140-400) K/mcL Neutrophils # 9.9 H (1.6-8.9) K/mcL BMP 02/23/17 03:14 Sodium 147 H Potassium 3.9 Chloride 104 Carbon Dioxide 31 H BUN 34 H Creatinine 0.97 Glucose 92 Calcium 9.2 - ABG Interpretation ABG results: PT/INR, D-dimer PT 10.2 Seconds (9.4-12.1) 02/20/17 14:28 Consult Discharge Plan - Plan Referrals: Lisbeth Salmon, EMPLOYEE [employer]ENEFITS INSURANCE AGENT [Primary Care Provider] - 03/22/17 1:20 pm <Memo Bah - Last Filed: 02/23/17 18:16> Date of Encounter: 02/23/17 - Assessment and plan (1) Acute and chronic respiratory failure with hypoxia Current Visit: Yes Status: Acute (2) Acute on chronic congestive heart failure Current Visit: Yes Status: Acute Qualifiers: Congestive heart failure type: diastolic Qualified Code(s): I50.33 - Acute on chronic diastolic (congestive) heart failure (3) Vertebral compression fracture Current Visit: Yes Status: Chronic Qualifiers: Encounter type: subsequent encounter Fracture healing: with routine healing Qualified Code(s): M48.50XD - Collapsed vertebra, not elsewhere classified, site unspecified, subsequent encounter for fracture with routine healing (4) Emphysema lung Current Visit: Yes Status: Chronic Qualifiers: Emphysema type: panlobular Qualified Code(s): J43.1 - Panlobular emphysema (5) Anxiety Current Visit: Yes Status: Chronic (6) CAD (coronary artery disease) Current Visit: No Status: Chronic Qualifiers: Coronary Disease-Associated Artery/Lesion type: [place] artery [place] vs. transplanted heart: [place] heart Associated angina: without angina Qualified Code(s): I25.10 - Atherosclerotic heart disease of [place] coronary artery without angina pectoris (7) CKD (chronic kidney disease) Current Visit: No Status: Chronic Qualifiers: Chronic kidney disease stage: stage 3 (moderate) Qualified Code(s): N18.3 - Chronic kidney disease, stage 3 (moderate) - Constitutional Vitals: Temp Pulse Resp BP Pulse Ox 97.9 F 112 16 127/82 95 02/23/17 15:36 02/23/17 15:36 02/23/17 15:36 02/23/17 15:36 02/23/17 15:36 Internal Medicine: Result - Labs CBC & Chem 7: 02/23/17 03:14 02/23/17 03:14 Labs: Short CBC 02/23/17 Range/Units 03:14 WBC 11.6 H (4.3-11.1) K/mcL Hgb 10.2 L (11.5-15.4) g/dL Hct 33.9 L (35.3-44.9) % Plt Count 219 (140-400) K/mcL Neutrophils # 9.9 H (1.6-8.9) K/mcL BMP 02/23/17 03:14 Sodium 147 H Potassium 3.9 Chloride 104 Carbon Dioxide 31 H BUN 34 H Creatinine 0.97 Glucose 92 Calcium 9.2 - ABG Interpretation ABG results: PT/INR, D-dimer PT 10.2 Seconds (9.4-12.1) 02/20/17 14:28 - Attending Attestation I examined this patient and my medical decision-making was reviewed with the Resident Physician on 02/23/17. I agree with the documented findings, disposition and treatment plan as described except to the extent set forth below. Ms. Khalil is currently admitted for acute exac CHF and intractable pain due to vertebral compression fracture. She remains moderate to high risk due to potential for worsening respiratory status. Ms. Khalil remains anxious. She is still complaining of a lot of pain. No fever or chills. Still some constipation. Not able to have vertebroplasty at this time. Exam Alert. Mod distress due to dyspnea. Mucus membranes dry Heart distant Lungs with rhonchi bilaterally Abd soft. Edema present. I/P 1. Hypoxia 2. CHF 3. Vertebral fracture - will ask opinion from Dr. Otto regarding potential for vertebroplasty and pain control. Further diagnoses and plan as above.
[2017-02-23] MEDS: Budesonide/Formoterol 160/4.5 MDI IH SCH ×2 (10:18→22:42)
[2017-02-23] MEDS: Tiotropium 18 MCG inhalation IH SCH (10:22)
[2017-02-23] MEDS ORDERED: *HR* Metoprolol 5 MG/5 ML VIAL IVP PRN (12:44)
[2017-02-23] MEDS: Furosemide 40 MG TABLET PO SCH (14:49)
[2017-02-23] MEDS: Melatonin 3 MG TABLET PO SCH (20:47)
[2017-02-24 03:40] LABS: Hematocrit 32.7 % (35.3-44.9); Hemoglobin 9.8 g/dL (11.5-15.4); Immature Granulocytes % 1.5 % (0-4); Lymphocytes % 10.2 %; Mean Corpuscular Hemoglobin 29.4 pg (28.0-33.3); Mean Corpuscular Volume 98.2 fL (83.0-100.0); Mean Platelet Volume 9.9 fL (9.4-12.4); Monocytes % 5.6 %; Platelet Count 208 K/mcL (140-400); Red Blood Count 3.33 M/mcL (3.82-4.97); Red Cell Distribution Width 16.6 % (11.5-14.5); Segmented Neutrophils % 82.3 %
[2017-02-24 03:41] LABS: Basophils % 0.2 %; Eosinophils % 0.2 %; Monocytes # 0.6 K/mcL (0.0-1.3); Neutrophils # 8.4 K/mcL (1.6-8.9); Potassium 3.6 mEq/L (3.5-4.5)
[2017-02-24] MEDS: Ipratropium/Albuterol Neb 3 ML IH SCH ×4 (03:44→22:38)
[2017-02-24] MEDS: *HR* OxyCODONE Immed Rel 5 MG TABLET PO PRN ×2 (05:15→10:37)
[2017-02-24] MEDS: *HR* Heparin 5,000 UNIT/ML VIAL SQ SCH ×2 (05:15→13:59)
[2017-02-24 07:21] VITALS: BP 134/59
--- NOTE | 2017-02-24 07:54 | Palliative Progress Note ---
Date of Encounter: 02/24/17 Time of Encounter: 07:20 - Assessment and plan (1) Vertebral compression fracture Current Visit: Yes Status: Chronic Assessment and plan: Treatment team has informed me that IR not feel that they can do the vertebral plasty for the patient. Treatment team is working with her vertebral plasty done as an outpatient. Pain continues to be under good control with actually fairly minimal use of medications. Qualifiers: Encounter type: subsequent encounter Fracture healing: with routine healing Qualified Code(s): M48.50XD - Collapsed vertebra, not elsewhere classified, site unspecified, subsequent encounter for fracture with routine healing (2) CHF (congestive heart failure) Current Visit: No Status: Chronic Assessment and plan: [facility] team is addressing aggressively. Is in line with the patient's wishes. Patient appears improved today. Qualifiers: Congestive heart failure type: systolic Congestive heart failure chronicity : chronic Qualified Code(s): I50.22 - Chronic systolic (congestive) heart failure (3) COPD (chronic obstructive pulmonary disease) Current Visit: Yes Status: Chronic Assessment and plan: Treatment per hospitalist team Patient appears improved today. Anxiety seems to be much less current Ativan dose. Qualifiers: COPD type: emphysema Emphysema type: panlobular Qualified Code(s): J43.1 - Panlobular emphysema (4) Goals of care, counseling/discussion Current Visit: No Status: Acute Assessment and plan: CODE STATUS is established DNR CCA DNI. She has been a patient of [facility] hospice. At this time it appears that the patient and the family want to go home with home health. I will consult with public health social worker to help with this discharge planning. Patient understands she may return to hospice at any time with any hospice she desires, that services this area. (5) Dyspnea Current Visit: Yes Status: Acute Assessment and plan: She is breathing is much better today. Patient feels and I agree that the Ativan is helping a great deal. We will leave it where it is. Qualifiers: Dyspnea type: shortness of breath Qualified Code(s): R06.02 - Shortness of breath; R06.00 - Dyspnea, unspecified; R06.01 - Orthopnea - Time Spent With Patient Total time spent is greater than 50% in coordination of care (as documented) at patient's floor/unit and/or counseling patient: - Subjective Interval history: Patient much better this morning. She is breathing easily does not appear anxious at all. She does complain of a headache. She states she slept better last night. I was told by Dr. Vazquez yesterday to the vertebral plasty will not be able to be accomplished while in the hospital. The treatment team is hopeful for getting this done as an outpatient. - Constitutional Vitals: Abnormal lab results RBC 3.33 M/mcL (3.82-4.97) L 02/24/17 03:05 Hgb 9.8 g/dL (11.5-15.4) L 02/24/17 03:05 Hct 32.7 % (35.3-44.9) L 02/24/17 03:05 MCHC 30.0 g/dL (31.6-35.5) L 02/24/17 03:05 RDW 16.6 % (11.5-14.5) H 02/24/17 03:05 Nucleated RBCs/100 WBC 0.3 /100 WBC (0) H 02/23/17 03:14 APTT 23.5 Seconds (26.0-36.0) L 02/20/17 14:28 Carbon Dioxide 33 mEq/L (19-29) H 02/24/17 03:05 BUN 36 mg/dL (7-20) H 02/24/17 03:05 Est GFR ( Amer) 57 (> 60) L 02/24/17 03:05 Est GFR (Non-Af Amer) 47 (> 60) L 02/24/17 03:05 BUN/Creatinine Ratio 32 (6-26) H 02/24/17 03:05 Calculated Osmolality 308 (280-300) H 02/24/17 03:05 B-Natriuretic Peptide 933 pg/mL (0-100) H 02/20/17 14:43 General appearance: Present: no acute distress - Head Head exam: Present: atraumatic, normal inspection - Eye Eye exam: Present: normal appearance - ENT ENT exam: Present: mucous membranes moist - Respiratory Respiratory exam: Present: decreased breath sounds, rhonchi (But much improved) - Cardiovascular Cardiovascular exam: Present: irregular rhythm (Somewhat irregular) - GI/Abdominal GI/Abdominal exam: Present: normal bowel sounds, soft. Absent: tenderness - Extremities Exam Extremities exam: Present: pedal edema. Absent: normal inspection - Neurological Exam Neurological exam: Present: alert, oriented X3 - Psychiatric Psychiatric exam: Present: normal affect, normal mood. Absent: agitated, anxious (Appears much better today states the Ativan is working well for her.) - Skin Skin exam: Present: dry, warm Palliative Quality Palliative Quality: Screen for Code Status: Yes, Screen for Goals of Care: Yes, Screen for Pain: Yes, If Pain Regimen Started, Initiate Bowel Regimen: Yes, Screen for Nausea/Vomitting: Yes Code Status: 02/20/17 23:28 Resuscitation Status: Active [RES] Routine Comment: Resuscitation Status: [id number] - Labs CBC & Chem 7: 02/24/17 03:05 02/24/17 03:05 Labs: Laboratory Results - last 24 hr 02/24/17 02/24/17 03:05 03:05 WBC 10.2 RBC 3.33 L Hgb 9.8 L Hct 32.7 L MCV 98.2 MCH 29.4 MCHC 30.0 L RDW 16.6 H Plt Count 208 MPV 9.9 Immature Gran % 1.5 Seg Neutrophils % 82.3 Lymphocytes % 10.2 Monocytes % 5.6 Eosinophils % 0.2 Basophils % 0.2 Neutrophils # 8.4 Lymphocytes # 1.0 Monocytes # 0.6 Eosinophils # 0.0 Basophils # 0.0 Sodium 145 Potassium 3.6 Chloride 102 Carbon Dioxide 33 H BUN 36 H Creatinine 1.11 Est GFR ( Amer) 57 L Est GFR (Non-Af Amer) 47 L BUN/Creatinine Ratio 32 H Glucose 85 Calculated Osmolality 308 H Calcium 9.0 - Impressions Impressions Thoracic Spine MRI 02/23/17 14:36 IMPRESSION: 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 D/ / Nico Leal MD / Nico Leal MD Interpreting Provider: Nico Leal MD - ABG Interpretation ABG results: PT/INR, D-dimer PT 10.2 Seconds (9.4-12.1) 02/20/17 14:28 Consult Discharge Plan - Plan Referrals: Lisbeth Salmon CARD FIXER [Primary Care Provider] - 03/22/17 1:20 pm
[2017-02-24] MEDS ORDERED: Furosemide 40 MG TABLET PO SCH (09:00)
[2017-02-24] MEDS: *HR* LORazepam 0.5 MG TABLET PO SCH ×2 (10:36→13:59)
[2017-02-24] MEDS: predniSONE 20 MG TABLET PO SCH (10:37)
[2017-02-24] MEDS: Metoprolol XL (24 HR) Succ 50 MG TAB.ER.24H PO SCH (10:37)
[2017-02-24] MEDS: Diltiazem CD (24hr) 180 MG CAPSULE PO SCH (10:37)
[2017-02-24] MEDS: Isosorbide MONOnitrate (24 HR) 60 MG TAB.ER.24H PO SCH (10:37)
[2017-02-24] MEDS: hydrALAZINE 25 MG TABLET PO SCH (10:37)
--- NOTE | 2017-02-24 10:39 | Discharge Summary ---
<Arin Vazquez - Last Filed: 02/24/17 10:35> Date of Encounter: 02/24/17 Time of Encounter: 10:39 - Discharge Diagnosis (1) Acute and chronic respiratory failure with hypoxia Priority: Primary Status: Acute (2) Acute on chronic congestive heart failure Priority: Primary Status: Acute Qualifiers: Congestive heart failure type: diastolic Qualified Code(s): I50.33 - Acute on chronic diastolic (congestive) heart failure (3) Vertebral compression fracture Priority: Secondary Status: Chronic Qualifiers: Encounter type: subsequent encounter Fracture healing: with routine healing Qualified Code(s): M48.50XD - Collapsed vertebra, not elsewhere classified, site unspecified, subsequent encounter for fracture with routine healing (4) COPD (chronic obstructive pulmonary disease) Priority: Secondary Status: Chronic Qualifiers: COPD type: emphysema Emphysema type: panlobular Qualified Code(s): J43.1 - Panlobular emphysema (5) Anxiety Priority: Secondary Status: Chronic (6) Lung nodule Priority: Secondary Status: Chronic - Discharge Medications Prescriptions: Bench - Tub Transfer [TUB TRANSFER BENCH] 1 each .ROUTE AD #1 each LORazepam [Ativan] 0.5 mg PO QID #120 tablet Metoprolol XL (24 HR) Succ [Toprol Xl] 150 mg PO DAILY #90 tab.er.24h Miscellaneous Medical Supply [Attachment Set] 1 each AD #1 miscell Oxygen 3 l IH AD #1 each Home Medications: Budesonide/Formoterol 160/4.5 [Symbicort] 2 puff IH BID 02/20/15 [History] Clopidogrel [Plavix] 75 mg PO DAILY 02/20/15 [History] Tiotropium [Spiriva] 2 puff IH DAILY 02/20/15 [History] Donepezil [Aricept] 10 mg PO HS 04/03/15 [History] Ascorbate Calcium [Vitamin C] 500 mg PO DAILY 07/09/15 [History] Isosorbide MONOnitrate (24 HR) [Imdur] 60 mg PO DAILY 07/09/15 [History] Simvastatin [Zocor] 10 mg PO HS 07/09/15 [History] Melatonin 10 mg PO HS 08/12/16 [History] Albuterol Sulfate [Proair Hfa] 2 puff IH Q4H PRN 10/20/16 [History] Ferrous Sulfate 325 mg PO DAILY 10/20/16 [History] Hydralazine HCl 50 mg PO TID 10/20/16 [History] Nitroglycerin [Nitrostat] 0.4 mg SL Q5M PRN 10/20/16 [History] Oxygen 3 l NS CONT 10/20/16 [History] Sertraline [Zoloft] 100 mg PO DAILY 10/20/16 [History] buPROPion HCl [Bupropion HCl Sr] 200 mg PO BID 10/20/16 [History] LORazepam [Ativan] 1 mg PO BID PRN 11/22/16 [History] Albuterol Neb [Proventil Neb] 2.5 mg IH Q2H PRN #0 inhsol 12/01/16 [Rx] Diltiazem CD (24hr) [Cardizem CD] 360 mg PO DAILY cap.er.24h 12/01/16 [Rx] Ipratropium/Albuterol Neb [Duoneb] 3 ml IH TID inhsol 12/01/16 [Rx] HYDROcodone/Acet 5/325 mg [[place] 5-325 mg] 2 tab PO Q6H PRN 02/01/17 [History] predniSONE [PredniSONE] 20 mg PO BID 02/01/17 [History] Furosemide [Lasix] 80 mg PO DAILY 02/16/17 [History] Morphine Sulfate [Morphine Oral Solution] 0.25 ml PO AD PRN 02/16/17 [History] Pantoprazole Sodium [Protonix] 40 mg PO DAILY 02/16/17 [History] Potassium Chloride [Klor-Con 10] 10 meq PO BID 02/16/17 [History] Furosemide [Lasix] 40 mg PO DAILY 02/20/17 [History] GuaiFENesin ER [Mucinex] 600 mg PO BID PRN 02/20/17 [History] Bench - Tub Transfer [TUB TRANSFER BENCH] 1 each .ROUTE AD #1 each 02/24/17 [Rx] LORazepam [Ativan] 0.5 mg PO QID #120 tablet 02/24/17 [Rx] Metoprolol XL (24 HR) Succ [Toprol Xl] 150 mg PO DAILY #90 tab.er.24h 02/24/17 [ Rx] Miscellaneous Medical Supply [Attachment Set] 1 each AD #1 miscell 02/24/17 [ Rx] Oxygen 3 l IH AD #1 each 02/24/17 [Rx] Allergies/Adverse Reactions: 3 Allergy/AdvReac Type Severity Reaction Status Date / Time citalopram [From Celexa] Allergy Difficulty Verified 02/01/17 09:53 Breathing amlodipine [From Norvasc] AdvReac Difficulty Verified 02/01/17 09:53 Breathing haloperidol [From Haldol] AdvReac Hallucinati Verified 02/01/17 09:53 ng risperidone AdvReac See Verified 02/01/17 09:53 Comments roflumilast [From Daliresp] AdvReac Difficulty Verified 02/01/17 09:53 Breathing Procedures/tests Complete & Pending: Procedures Performed prior 72 hours Category Date Time Status MR thoracic spine wo con [MR] Routine MRI 02/23/17 14:36 Completed Date of admission: 02/20/17 21:51 Primary care physician: Lisbeth Salmon CNP Consults: 02/20/17 23:21 Consult to Palliative Care [CONS] Routine Comment: Consulting Provider: Palliative Care Beth Reason for Consult: Patient on hospice for dementia and failure to thrive, however, family has questions and wants to consider taking her off hospice Call Completed: No 02/22/17 09:03 Consult to Interventional Radiology [CONS] Routine Consulting Provider: Radiology Interventional Cols Reason for Consult: vertebroplasty Time Notified: 09:04 Call Completed: Yes 02/23/17 14:37 Consult to Physician [CONS] Routine Consulting Provider: Jamshid Otto Jr Reason for Consult: vertebroplasty Call Completed: Yes 02/24/17 07:57 Consult to Coupon Redemption Clerk [CONS] Stat Reason for SW Consult: pt will need home health on d/c. She does not wish to return to [facility] hospice at this time she will decide in the future. Beth palliative home health care would be ideal Discharging clinician: Arin Vazquez Anticipated date of discharge: 02/24/17 - Patient Status Disposition: Home Health Service Condition: Fair Functional capacity at discharge: uses cane/walker Overall status at discharge: patient is back to baseline - Discharge Instructions Follow Up With: Lisbeth Salmon CNP [Primary Care Provider] - 03/22/17 1:20 pm - Diet and Activity Diet: low salt diet Interval History: Patient feeling well this morning, breathing improved. Hospital course: Ms. Khalil is a 81 year old female admitted for acute on chronic respiratory failure due to acute on chronic diastolic CHF. She required BiPAP throughout her admission due to dyspnea. Her CHF exacerbation was treated and her anxiety, which was creating a sense of air hunger and dyspnea. A low dose (0.25 mg) ativan was scheduled QID with 1 mg BID PRN and this seemed to improved the patient's anxiety and dyspnea. Her T6 compression fracture was unable to be treated with vertebroplasty due to the fracture being chronic. She wishes to discharge with home health and receive radiation treatment for her lung nodules. - Time Spent with Patient Total time spent providing and/or coordinating discharge services: - Constitutional Vitals: Temp Pulse Resp BP Pulse Ox 98.2 F 101 18 134/59 98 02/24/17 07:20 02/24/17 07:20 02/24/17 07:20 02/24/17 07:20 02/24/17 07:20 General appearance: Present: A&O X 3, pleasant, no acute distress - Head Head exam: Present: atraumatic, normocephalic - Eye Eye exam: Present: PERRL, conjuntiva pink, sclera anicteric Pupils: Present: PERRL - Neck Neck exam general surgery: Present: supple, trachea midline - Respiratory Respiratory exam: Present: decreased breath sounds, wheezes (throughout) - Cardiovascular Cardiovascular exam: Present: irregular rhythm, +S1, +S2 - GI/Abdominal GI/Abdominal exam: Present: hernia (large epigastric, reducible), normal bowel sounds, soft. Absent: tenderness - Extremities Exam Extremities exam: Present: pedal edema (2+), warm - Neurological Exam Neurological exam: Present: alert, oriented X3. Absent: facial droop, speech deficit - Skin Skin exam: Present: dry, intact <Memo Bah - Last Filed: 02/24/17 16:22> Date of Encounter: 02/24/17 - Discharge Diagnosis (1) Acute and chronic respiratory failure with hypoxia Status: Acute (2) Acute on chronic congestive heart failure Status: Acute Qualifiers: Congestive heart failure type: diastolic Qualified Code(s): I50.33 - Acute on chronic diastolic (congestive) heart failure (3) Vertebral compression fracture Status: Chronic Qualifiers: Encounter type: subsequent encounter Fracture healing: with routine healing Qualified Code(s): M48.50XD - Collapsed vertebra, not elsewhere classified, site unspecified, subsequent encounter for fracture with routine healing (4) Emphysema lung Priority: Secondary Status: Chronic Qualifiers: Emphysema type: panlobular Qualified Code(s): J43.1 - Panlobular emphysema (5) Anxiety Status: Chronic (6) CAD (coronary artery disease) Priority: Secondary Status: Chronic Qualifiers: Coronary Disease-Associated Artery/Lesion type: [place] artery [place] vs. transplanted heart: [place] heart Associated angina: without angina Qualified Code(s): I25.10 - Atherosclerotic heart disease of [place] coronary artery without angina pectoris (7) CKD (chronic kidney disease) Priority: Secondary Status: Chronic Qualifiers: Chronic kidney disease stage: stage 3 (moderate) Qualified Code(s): N18.3 - Chronic kidney disease, stage 3 (moderate) (8) Lung nodules Priority: Secondary Status: Chronic Procedures/tests Complete & Pending: Procedures Performed prior 72 hours Category Date Time Status MR thoracic spine wo con [MR] Routine MRI 02/23/17 14:36 Completed Date of admission: 02/20/17 21:51 Primary care physician: Lisbeth Salmon CNP Consults: 02/20/17 23:21 Consult to Palliative Care [CONS] Routine Comment: Consulting Provider: Palliative Care Beth Reason for Consult: Patient on hospice for dementia and failure to thrive, however, family has questions and wants to consider taking her off hospice Call Completed: No 02/22/17 09:03 Consult to Interventional Radiology [CONS] Routine Consulting Provider: Radiology Eveline Cols Reason for Consult: vertebroplasty Time Notified: 09:04 Call Completed: Yes 02/23/17 14:37 Consult to Physician [CONS] Routine Consulting Provider: Jamshid Otto Jr Reason for Consult: vertebroplasty Call Completed: Yes 02/24/17 07:57 Consult to Coupon Redemption Clerk [CONS] Stat Reason for SW Consult: pt will need home health on d/c. She does not wish to return to [facility] hospice at this time she will decide in the future. Beth palliative home health care would be ideal Hospital course: Ms. Khalil is a 81 year old female - Time Spent with Patient Total time spent providing and/or coordinating discharge services: 39min - Constitutional Vitals: Temp Pulse Resp BP Pulse Ox 98.2 F 101 16 134/59 94 02/24/17 07:20 02/24/17 07:20 02/24/17 15:59 02/24/17 07:20 02/24/17 15:59 - Attending Attestation I examined this patient and my medical decision-making was reviewed with the Resident Physician on 02/24/17. I agree with the documented findings, disposition and treatment plan as described except to the extent set forth below. Ms. Khalil has been admitted for acute exac CHF and intractable back pain. She has been seen by palliative care and medications have been adjusted with improvement. She is afebrile with stable vitals. MRI shows that compression fracture is chronic. She will be discharged home today with [facility]. Exam alert. Comfortable up in chair. Mucus membranes dry Heart irreg - not tachy now Lungs with rhonchi Abd soft Plan D/C home with [facility] Follow up with PCP and oncology.
[2017-02-24] MEDS: *HR* LORazepam 1 MG TABLET PO PRN (10:40)
[2017-02-24] MEDS: Tiotropium 18 MCG inhalation IH SCH (10:40)
[2017-02-24] MEDS: Budesonide/Formoterol 160/4.5 MDI IH SCH ×2 (10:41→22:38)
--- NOTE | 2017-02-24 11:03 | Physician Discharge Referral ---
Home Health/Hosp Referral Info Transfer to: Home Health Attending Provider: Dr. Memo Bah Provider in Charge Post Discharge: PCP - Diagnosis (1) Acute and chronic respiratory failure with hypoxia Priority: Primary Status: Acute (2) Acute on chronic congestive heart failure Priority: Primary Status: Acute (3) Vertebral compression fracture Priority: Secondary Status: Chronic (4) COPD (chronic obstructive pulmonary disease) Priority: Secondary Status: Chronic (5) Anxiety Priority: Secondary Status: Chronic (6) Lung nodule Priority: Secondary Status: Chronic - Respiratory Orders Oxygen / L per min (3) Smoking Cessation: Smoking cessation has been advised. For more information, call the [place] Tobacco Quit Line at 7-061-NBGE-NOW. - Diet/Nutrition Diet/Nutrition Orders: No Added Salt (MONA) - Activity Activity Orders: Up ad dom - Services Needed Following services are medically necessary services: Nursing, Home Health Aide - Transfer Medications Prescriptions: LORazepam [Ativan] 0.5 mg PO QID #120 tablet Metoprolol XL (24 HR) Succ [Toprol Xl] 150 mg PO DAILY #90 tab.er.24h Home Medications: Budesonide/Formoterol 160/4.5 [Symbicort] 2 puff IH BID 02/20/15 [History] Clopidogrel [Plavix] 75 mg PO DAILY 02/20/15 [History] Tiotropium [Spiriva] 2 puff IH DAILY 02/20/15 [History] Donepezil [Aricept] 10 mg PO HS 04/03/15 [History] Ascorbate Calcium [Vitamin C] 500 mg PO DAILY 07/09/15 [History] Isosorbide MONOnitrate (24 HR) [Imdur] 60 mg PO DAILY 07/09/15 [History] Simvastatin [Zocor] 10 mg PO HS 07/09/15 [History] Melatonin 10 mg PO HS 08/12/16 [History] Albuterol Sulfate [Proair Hfa] 2 puff IH Q4H PRN 10/20/16 [History] Ferrous Sulfate 325 mg PO DAILY 10/20/16 [History] Hydralazine HCl 50 mg PO TID 10/20/16 [History] Nitroglycerin [Nitrostat] 0.4 mg SL Q5M PRN 10/20/16 [History] Oxygen 3 l NS CONT 10/20/16 [History] Sertraline [Zoloft] 100 mg PO DAILY 10/20/16 [History] buPROPion HCl [Bupropion HCl Sr] 200 mg PO BID 10/20/16 [History] LORazepam [Ativan] 1 mg PO BID PRN 11/22/16 [History] Albuterol Neb [Proventil Neb] 2.5 mg IH Q2H PRN #0 inhsol 12/01/16 [Rx] Diltiazem CD (24hr) [Cardizem CD] 360 mg PO DAILY cap.er.24h 12/01/16 [Rx] Ipratropium/Albuterol Neb [Duoneb] 3 ml IH TID inhsol 12/01/16 [Rx] HYDROcodone/Acet 5/325 mg [[place] 5-325 mg] 2 tab PO Q6H PRN 02/01/17 [History] predniSONE [PredniSONE] 20 mg PO BID 02/01/17 [History] Furosemide [Lasix] 80 mg PO DAILY 02/16/17 [History] Morphine Sulfate [Morphine Oral Solution] 0.25 ml PO AD PRN 02/16/17 [History] Pantoprazole Sodium [Protonix] 40 mg PO DAILY 02/16/17 [History] Potassium Chloride [Klor-Con 10] 10 meq PO BID 02/16/17 [History] Furosemide [Lasix] 40 mg PO DAILY 02/20/17 [History] GuaiFENesin ER [Mucinex] 600 mg PO BID PRN 02/20/17 [History] LORazepam [Ativan] 0.5 mg PO QID #120 tablet 02/24/17 [Rx] Metoprolol XL (24 HR) Succ [Toprol Xl] 150 mg PO DAILY #90 tab.er.24h 02/24/17 [ Rx] Allergies/Adverse Reactions: 3 Allergy/AdvReac Type Severity Reaction Status Date / Time citalopram [From Celexa] Allergy Difficulty Verified 02/01/17 09:53 Breathing amlodipine [From Norvasc] AdvReac Difficulty Verified 02/01/17 09:53 Breathing haloperidol [From Haldol] AdvReac Hallucinati Verified 02/01/17 09:53 ng risperidone AdvReac See Verified 02/01/17 09:53 Comments roflumilast [From Daliresp] AdvReac Difficulty Verified 02/01/17 09:53 Breathing Certification: Further, I certify that my clinical findings support that this patient is homebound (i.e. absences from home require considerable and taxing effort and are for medical reasons or [employer] services or infrequently or short duration when for other reasons) because: Homebound Reason: Patient requires assistance of a person or device to safely leave home, Leaving home requires considerable and taxing effort due to condition Attestation: My signature below is to certify that this patient is under my care and that I, or nurse practitioner, or a physician's physician assistant working with me, has a face-to -face encounter with this patient.
[2017-02-24] MEDS: Sennosides/Docusate Sodium TABLET PO SCH (11:35)
[2017-02-24] MEDS: Furosemide 40 MG TABLET PO SCH (13:59)
== END 2017-02-24 18:50 | disposition home health service (06) | DRG 291 ==
LOC: 2NENU 13:46 → EMEROO 13:46 → 2NENU 20:41 → SUATTDRO 21:51
PROVIDERS: ADMIT Family Medicine; ATTEND Internal Medicine

== ENCOUNTER 2017-03-02 13:13 | Inpatient (IN) ==
--- NOTE | 2017-03-02 13:19 | Emergency Department Note ---
Disposition Clinical Impression: CHF exacerbation Qualifiers: Congestive heart failure type: unspecified congestive heart failure type Qualified Code(s): I50.9 - Heart failure, unspecified Disposition: Admitted As Inpatient Condition: Fair SOB HPI - General Chief Complaint: ED Shortness of Breath/Dyspnea Stated Complaint: ASHLEIGH Time Seen by Provider: 03/02/17 13:14 Source: patient Mode of arrival: EMS Limitations: no limitations Nursing Notes Reviewed: Yes Vital Signs Reviewed: Yes - History of Present Illness 81-year-old female history of lung cancer, respiratory failure who presents to the ER due to shortness of breath via EMS. Patient states that she was admitted 3-4 weeks ago. States that she is continue to have shortness of breath. Reports a cough with productive green sputum. Also states she has had lower 70 swelling. She denies any chest pain. Denies any fevers at home. States that her daughter will be coming and knows more about her history. Denies a history of DVT or PE. No other complaints. Pt Subjective Complaint: shortness of breath, cough Onset (ago): day(s) Context: recent illness Severity: moderate Consistency/Duration: constant Improves with: nothing Worsens with: nothing Known history of: COPD Associated symptoms: Reports: cough, sputum production. Denies: chest pain, fever Treatment prior to arrival: oxygen, bronchodilator Cough present: Yes Cough Description: Involuntary Cough Frequency: Intermittent Sputum production: No Sputum Amount: None - Related Data Home oxygen amount: 2 liters Home Medications Medication Instructions Recorded Confirmed Budesonide/Formoterol 160/4.5 2 puff IH BID 02/20/15 03/02/17 [Symbicort] Clopidogrel [Plavix] 75 mg PO DAILY 02/20/15 03/02/17 Donepezil [Aricept] 10 mg PO HS 04/03/15 03/02/17 Ascorbate Calcium [Vitamin C] 500 mg PO DAILY 07/09/15 03/02/17 Isosorbide MONOnitrate (24 HR) 60 mg PO DAILY 07/09/15 03/02/17 [Imdur] Simvastatin [Zocor] 10 mg PO HS 07/09/15 03/02/17 Melatonin 10 mg PO HS 08/12/16 03/02/17 Albuterol Sulfate [Proair Hfa] 2 puff IH Q4H PRN 10/20/16 03/02/17 Ferrous Sulfate 325 mg PO DAILY 10/20/16 03/02/17 Hydralazine HCl 50 mg PO TID 10/20/16 03/02/17 Nitroglycerin [Nitrostat] 0.4 mg SL Q5M PRN 10/20/16 03/02/17 Oxygen 3 l NS CONT 10/20/16 03/02/17 Sertraline [Zoloft] 100 mg PO DAILY 10/20/16 03/02/17 buPROPion HCl [Bupropion HCl Sr] 200 mg PO BID 10/20/16 03/02/17 LORazepam [Ativan] 1 mg PO HS 11/22/16 03/02/17 predniSONE [PredniSONE] 30 mg PO DAILY 02/01/17 03/02/17 Furosemide [Lasix] 80 mg PO 0800 02/16/17 03/02/17 Pantoprazole Sodium [Protonix] 40 mg PO DAILY 02/16/17 03/02/17 Potassium Chloride [Klor-Con 10] 10 meq PO BID 02/16/17 03/02/17 Furosemide [Lasix] 40 mg PO 1200 02/20/17 03/02/17 GuaiFENesin ER [Mucinex] 600 mg PO BID 02/20/17 03/02/17 Ipratropium/Albuterol Neb [Duoneb] 3 ml IH QID 03/02/17 03/02/17 Tiotropium Callahan [Spiriva 2 puff IH DAILY 03/02/17 03/02/17 Respimat] Previous Rx's Medication Instructions Recorded Diltiazem CD (24hr) [Cardizem CD] 360 mg PO DAILY cap.er.24h 12/01/16 LORazepam [Ativan] 0.5 mg PO QID #120 tablet 02/24/17 Metoprolol XL (24 HR) Succ [Toprol 150 mg PO DAILY #90 tab.er.24h 02/24/17 Xl] Oxycodone HCl 10 mg PO Q4H PRN #15 tab 02/24/17 Allergies Allergy/AdvReac Type Severity Reaction Status Date / Time citalopram [From Celexa] Allergy Difficulty Verified 02/01/17 09:53 Breathing amlodipine [From Norvasc] AdvReac Difficulty Verified 02/01/17 09:53 Breathing haloperidol [From Haldol] AdvReac Hallucinati Verified 02/01/17 09:53 ng risperidone AdvReac See Verified 02/01/17 09:53 Comments roflumilast [From Daliresp] AdvReac Difficulty Verified 02/01/17 09:53 Breathing All systems ED: reviewed and negative except as stated. Constitutional: Denies: fever, chills Cardiovascular: Denies: chest pain Respiratory: Reports: cough, dyspnea Gastrointestinal: Denies: abdominal pain, nausea, vomiting Past Medical History - Past Medical History Attestation: Yes The following information was validated with the patient. Source: patient Medical history: Reports: arthritis, cancer, CHF, COPD, coronary artery disease , dementia, GERD, hyperlipidemia, hypertension, myocardial infarction, osteoporosis, peripheral artery disease, renal disease, other Surgical history: Reports: cholecystectomy, hysterectomy, orthopedic, other, BHARATHI /BSO, other Psychiatric history: Reports: anxiety, depression - Social History Smoking Status: Former smoker Smokeless Tobacco Status: No Alcohol use: Reports: none Drug use: Reports: none Physical Exam - General Limitations: no limitations General appearance: alert, in no apparent distress - Head Head exam: atraumatic, normocephalic, normal inspection - Eye Eye exam: Present: normal appearance, EOMI - ENT ENT exam: normal exam - Neck Neck exam: Present: normal inspection, full ROM - Chest Chest inspection: Present: normal inspection, symmetric chest wall rise - Respiratory Respiratory exam: Present: accessory muscle use, prolonged expiratory phase, other (Patient has bilateral coarse breath sounds) - Cardiovascular Cardiovascular exam: Present: normal rhythm, tachycardia, normal heart sounds - Abdominal Exam Abdominal exam: Present: soft, Non-Tender. Absent: tenderness, distention, rigidity - Extremities Exam Extremities exam: Present: normal inspection, full ROM - Expanded Upper Extremity Exam Shoulder exam: Present: normal inspection, full ROM Arm exam: Present: normal inspection, full ROM Elbow exam: Present: normal inspection, full ROM Forearm/Wrist exam: Present: normal inspection, full ROM Hand exam: Present: normal inspection, full ROM Vascular exam: Normal: radial pulse - Expanded Lower Extremity Exam Hip/Pelvis exam: Present: normal inspection, full ROM Upper leg exam: Present: normal inspection, full ROM Knee exam: Present: normal inspection, full ROM Lower leg exam: Present: normal inspection, full ROM Ankle exam: Present: normal inspection, full ROM Foot/toe exam: Present: normal inspection, full ROM, swelling (2+ bilateral lower extremities pitting edema) Neurovascular/Tendon exam: Absent: motor deficit, sensory deficit - Neurological Exam Neurological exam: Present: alert, other (GCS 15. Nonfocal neurologic exam. Moves all extremities equally.) - Psychiatric Psychiatric exam: Present: normal affect, normal mood - Skin Skin exam: Present: warm, dry, intact, normal color Course Course Narrative: Patient seen and examined. Vital signs reviewed. We will obtain an EKG, chest x-ray as well as labs. Reports that family will be here soon and that she is DNR [facility]. Vital Signs Temperature 98.6 F 03/02/17 13:15 Pulse Rate 111 03/02/17 13:15 Respiratory Rate 20 03/02/17 13:15 Blood Pressure 126/73 03/02/17 13:15 O2 Sat by Pulse Oximetry 97 03/02/17 13:15 Temperature 97.9 F 03/02/17 19:42 Pulse Rate 99 03/02/17 19:42 Respiratory Rate 20 03/02/17 19:42 Blood Pressure 138/76 03/02/17 19:42 O2 Sat by Pulse Oximetry 94 03/02/17 19:42 Oxygen Delivery Oxygen Delivery Nasal Cannula Shortness of Breath/Dyspnea - [facility] Narrative Medical decision making narrative: 81-year-old female presents to the ER to the shortness of breath. Was hospitalized recently for similar symptoms. She appears volume overloaded on exam. Chest x-ray demonstrates continued pulmonary edema. EKG shows A. fib with right bundle-branch block which is chronic. BNP is elevated with a slight bump in her creatinine. Patient given 40 mg of Lasix here. Admitted to the hospitalist service. - Lab Data Lab results reviewed: Yes I reviewed the patient's lab results. Result diagrams: 03/02/17 13:46 03/02/17 13:46 Lab Results 03/02/17 03/02/17 03/02/17 Range/Units 13:46 13:46 13:46 WBC 13.4 H (4.3-11.1) K/mcL RBC 3.42 L (3.82-4.97) M/mcL Hgb 9.8 L (11.5-15.4) g/dL Hct 33.2 L (35.3-44.9) % MCV 97.1 (83.0-100.0) fL MCH 28.7 (28.0-33.3) pg MCHC 29.5 L (31.6-35.5) g/dL RDW 16.1 H (11.5-14.5) % Plt Count 308 (140-400) K/mcL MPV 9.3 L (9.4-12.4) fL Immature Gran % 4.4 H (0-4) % Seg Neutrophils % 86.2 % Lymphocytes % 5.4 % Monocytes % 3.3 % Eosinophils % 0.1 % Basophils % 0.6 % Neutrophils # 11.6 H (1.6-8.9) K/mcL Lymphocytes # 0.7 (0.6-4.6) K/mcL Monocytes # 0.4 (0.0-1.3) K/mcL Eosinophils # 0.0 (0.0-0.6) K/mcL Basophils # 0.1 (0.0-0.2) K/mcL Sodium 146 H (136-145) mEq/L Potassium 4.6 H (3.5-4.5) mEq/L Chloride 105 (98-109) mEq/L Carbon Dioxide 31 H (19-29) mEq/L BUN 37 H (7-20) mg/dL Creatinine 1.23 H (0.57-1.11) mg/dL Est GFR ( Amer) 51 L (> 60) Est GFR (Non-Af Amer) 42 L (> 60) BUN/Creatinine Ratio 30 H (6-26) Glucose 115 H (70-99) mg/dL Calculated Osmolality 312 H (280-300) Calcium 9.1 (8.6-10.8) mg/dL Troponin I 0.02 (0-0.03) ng/mL B-Natriuretic Peptide (0-100) pg/mL 03/02/17 Range/Units 13:46 WBC (4.3-11.1) K/mcL RBC (3.82-4.97) M/mcL Hgb (11.5-15.4) g/dL Hct (35.3-44.9) % MCV (83.0-100.0) fL MCH (28.0-33.3) pg MCHC (31.6-35.5) g/dL RDW (11.5-14.5) % Plt Count (140-400) K/mcL MPV (9.4-12.4) fL Immature Gran % (0-4) % Seg Neutrophils % % Lymphocytes % % Monocytes % % Eosinophils % % Basophils % % Neutrophils # (1.6-8.9) K/mcL Lymphocytes # (0.6-4.6) K/mcL Monocytes # (0.0-1.3) K/mcL Eosinophils # (0.0-0.6) K/mcL Basophils # (0.0-0.2) K/mcL Sodium (136-145) mEq/L Potassium (3.5-4.5) mEq/L Chloride (98-109) mEq/L Carbon Dioxide (19-29) mEq/L BUN (7-20) mg/dL Creatinine (0.57-1.11) mg/dL Est GFR ( Amer) (> 60) Est GFR (Non-Af Amer) (> 60) BUN/Creatinine Ratio (6-26) Glucose (70-99) mg/dL Calculated Osmolality (280-300) Calcium (8.6-10.8) mg/dL Troponin I (0-0.03) ng/mL B-Natriuretic Peptide 955 H (0-100) pg/mL - Radiology Data Radiology results reviewed: Yes I reviewed the patient's radiology results. Chest X-Ray 03/02/17 13:28 IMPRESSION: Cardiomegaly and pulmonary edema, similar in appearance. D/ / Nadia Cruz MD / Nadia Cruz MD Interpreting Provider: Nadia Cruz MD - EKG Data EKG attestation: Yes I reviewed and interpreted this EKG. EKG results narrative: EKG demonstrates atrial fibrillation with a rate of 97 bpm with a right bundle- branch block. Normal axis. QRS duration prolonged at 131. No gross ST elevations or depressions. No acute ischemic findings. No significant changes from previous EKG dated 02/20/17. S.B.A.R. - S.B.A.R. Situation: Demographics, MOA Background: Presenting Complaint, Relevant PMH, Meds, & Allergies Assessment: Vital Signs, Course and respsone to treatment, Exam Concerns, Patient/Family Expectation, Pertinant Lab Results, Outstanding Labs Recommendation: Barrier(s) to disposition, Recommendation based on pending studies, treatments, or consults Simeon Report Given to: Dr. Adam Hendrix Repor Time: 17:54 Attestation Statement - Attestation Attestation: I examined this patient and my medical decision-making was reviewed with the Resident Physician, Dr. Rodriguez. I agree with the documented findings, disposition and treatment plan as described except to the extent set forth below. Pt brought to ED for SOB, with hx CHF. Pt recently DC'd from hospital for same. No F/C, no CP/press, no abd pain/flank pain. Pt with stable VS on arrival, no acute distress. I agree with pt's PE findings as documented. Pt's EKG shows no acute ischemia, unchanged form prior. CXR shows mild pulm edema, and elev BNP. Trop neg. Will admit to hospitalist for aechf.
[2017-03-02] MEDS ORDERED: methylPREDNISolone 125 MG/2 ML VIAL IVP ONE (13:28)
[2017-03-02] MEDS ORDERED: Ipratropium/Albuterol Neb 3 ML IH ONE (13:28)
[2017-03-02 14:01] LABS: Basophils # 0.1 K/mcL (0.0-0.2); Basophils % 0.6 %; Eosinophils % 0.1 %; Hematocrit 33.2 % (35.3-44.9); Hemoglobin 9.8 g/dL (11.5-15.4); Immature Granulocytes % 4.4 % (0-4); Lymphocytes # 0.7 K/mcL (0.6-4.6); Lymphocytes % 5.4 %; Mean Corpuscular HGB Conc 29.5 g/dL (31.6-35.5); Mean Corpuscular Hemoglobin 28.7 pg (28.0-33.3); Mean Corpuscular Volume 97.1 fL (83.0-100.0); Mean Platelet Volume 9.3 fL (9.4-12.4); Monocytes # 0.4 K/mcL (0.0-1.3); Monocytes % 3.3 %; Neutrophils # 11.6 K/mcL (1.6-8.9); Platelet Count 308 K/mcL (140-400); Red Blood Count 3.42 M/mcL (3.82-4.97); Red Cell Distribution Width 16.1 % (11.5-14.5); Segmented Neutrophils % 86.2 %
[2017-03-02 14:06] LABS: Calcium 9.1 mg/dL (8.6-10.8); Potassium 4.6 mEq/L (3.5-4.5)
[2017-03-02] MEDS ORDERED: Furosemide 40 MG/4 ML VIAL IVP ONE (14:58)
[2017-03-02] MEDS ORDERED: Neosporin OINT 15 GM TUBE TP ONE (15:29)
[2017-03-02] MEDS ORDERED: *HR* HYDROcodone/Acet 5/325 mg TABLET PO ONE (17:42)
[2017-03-02] MEDS ORDERED: Naloxone 0.4 MG/ML INJ IVP PRN (18:52)
[2017-03-02] MEDS ORDERED: *HR* HYDROcodone/Acet 5/325 mg TABLET PO PRN (18:52)
[2017-03-02] MEDS ORDERED: Nitroglycerin 0.4 MG TAB.SUBL SL PRN (18:55)
--- NOTE | 2017-03-02 19:49 | Internal Med History&Physical ---
<Isabel Grace - Last Filed: 03/02/17 20:29> Date of Encounter: 03/02/17 Time of Encounter: 19:48 Assessment and Plan (1) Acute on chronic congestive heart failure Current visit: Yes Status: Acute Patient presents with increased shortness of breath. CXR show cardiomegaly and pulmonary edema. BNP elevated at 955. Patient takes a total of 120mg of lasix PO per day at home. Will give 40mg IVP BID Continuous monitoring analyst Bipap overnight and PRN cardiac diet with 1.5L fluid restriction daily weights and strict I/Os Qualifiers: Congestive heart failure type: unspecified congestive heart failure type Qualified Code(s): I50.9 - Heart failure, unspecified (2) Acute and chronic respiratory failure with hypoxia Current visit: Yes Status: Acute Patient requires 3L of oxygen at baseline, but is here with increased shortness of breath, tachypnea, wheezing and mild respiratory distress. She is in CHF exacerbation and COPD. REspiratory therapy consulted for bipap overnight. Will treat CHF exacerbation with diuresis and COPD with nebulizers and steroids. (3) COPD exacerbation Current visit: Yes Status: Acute Patient with shortness of breath and edema, consistent with CHF exacerbation, but she is also reporting wheezing and productive cough. Patient with rhonchi and rales on auscultation. CXR shows cardiomegaly and pulmonary edema. Patient given 125mg IVP solu -medrol in ED, will continue with 40mg IVP BID. Duoneb treatments QID Albuterol nebulizer Q2hr prn Levaquin 750mg PO daily Continue home COPD medications. Respiratory therapy consulted for Bipap certification. Bipap overnight and PRN titrate oxygen to maintain saturation (4) Acute kidney injury superimposed on CKD Current visit: Yes Status: Acute Creatinine of 1.23 up from previous value of 1.11. Patient with CHF exacerbation and will be getting diuresis. Daily chemistry. (5) Atrial fibrillation Current visit: Yes Status: Acute Patient has chronic afib and is on cardizem and metoprolol for rate and rhythm control. She is not on anticoagulation as it was determined risk outweighed benefit. Continue home dose of cardizem and metoprolol. Qualifiers: Atrial fibrillation type: chronic Qualified Code(s): I48.2 - Chronic atrial fibrillation (6) DVT prophylaxis Current visit: Yes Status: Acute anti-embolic stockings heparin SQ TID Internal Medicine - H&P: HPI Chief complaint: shortness of breath Admitted From: Emergency Dept Plans for Post Hospital Care: Home History of present illness: Ms. Khalil is a 81 year old female with hypertension, hyperlipidemia, COPD, congestive heart failure, coronary artery disease, dementia, peripheral vascular disease, chronic kidney disease, A. fib, recent diagnosis of lung cancer presented to the emergency department today with complaints of shortness of breath and increased swelling for the last several days. Patient has had worsening shortness of breath, productive cough, and increased lower extremity swelling over the last several days. She was just discharged last week for CHF exacerbation and similar presentation. She reports some lightheadedness, pain with cough. She denies any nausea, vomiting, abdominal pain or diarrhea. She denies any fever, chills or sweats. Evaluation in the emergency department included a chest x-ray which showed cardiomegaly with pulmonary edema. BNP was elevated to 955. White blood cell count was elevated at 13.4, however patient has been on prednisone. Patient was given 40 of Lasix, DuoNeb treatments, and 125mg of Solu Medrol in the emergency department. On exam, patient alert and oriented. She is tachypnic and has prolonged expiratory phase. Lungs with rhonchi and crackles bilaterally. Heart has regular rate and rhythm. BLE with +2-3pitting edema. Past Med Surg Social Fam HX - Past Medical History Medical history: arthritis, cancer, CHF, COPD, coronary artery disease, dementia , GERD, hyperlipidemia, hypertension, myocardial infarction, osteoporosis, peripheral artery disease, renal disease, other Psychiatric history: anxiety, depression - Past Surgical History Surgical History: cholecystectomy, hysterectomy, orthopedic, other, BHARATHI/BSO, other - Social History Smoking Status: Former smoker Smokeless Tobacco Status: No Alcohol use: none Drug use: none - Family History Father Living Status: Hx Family Cardiac Disorders: Yes Hx Family Cancer: Yes (RCC) Mother Living Status: Hx Family Cardiac Disorders: Yes Hx Family Respiratory Disorders: No Hx Family Cancer: Yes (bladder cancer) Hx Family GI Disorders: No Hx Family Endocrine Disorder: No Hx Family Neuromuscular Disorders: No Hx Family Neurologic Disorders: No Internal Medicine - H&P: Meds Budesonide/Formoterol 160/4.5 [Symbicort] 2 puff IH BID 09/25/15 [History] Clopidogrel [Plavix] 75 mg PO DAILY 02/20/15 [History] Donepezil [Aricept] 10 mg PO HS 04/03/15 [History] Ascorbate Calcium [Vitamin C] 500 mg PO DAILY 07/09/15 [History] Isosorbide MONOnitrate (24 HR) [Imdur] 60 mg PO DAILY 07/09/15 [History] Simvastatin [Zocor] 10 mg PO HS 07/09/15 [History] Melatonin 10 mg PO HS 08/12/16 [History] Albuterol Sulfate [Proair Hfa] 2 puff IH Q4H PRN 10/20/16 [History] Ferrous Sulfate 325 mg PO DAILY 10/20/16 [History] Hydralazine HCl 50 mg PO TID 10/20/16 [History] Nitroglycerin [Nitrostat] 0.4 mg SL Q5M PRN 10/20/16 [History] Oxygen 3 l NS CONT 10/20/16 [History] Sertraline [Zoloft] 100 mg PO DAILY 10/20/16 [History] buPROPion HCl [Bupropion HCl Sr] 200 mg PO BID 10/20/16 [History] LORazepam [Ativan] 1 mg PO HS 11/22/16 [History] Diltiazem CD (24hr) [Cardizem CD] 360 mg PO DAILY cap.er.24h 12/01/16 [Rx] predniSONE [PredniSONE] 30 mg PO DAILY 02/01/17 [History] Furosemide [Lasix] 80 mg PO 0800 02/16/17 [History] Pantoprazole Sodium [Protonix] 40 mg PO DAILY 02/16/17 [History] Potassium Chloride [Klor-Con 10] 10 meq PO BID 02/16/17 [History] Furosemide [Lasix] 40 mg PO 1200 02/20/17 [History] GuaiFENesin ER [Mucinex] 600 mg PO BID 02/20/17 [History] LORazepam [Ativan] 0.5 mg PO QID #120 tablet 02/24/17 [Rx] Metoprolol XL (24 HR) Succ [Toprol Xl] 150 mg PO DAILY #90 tab.er.24h 02/24/17 [ Rx] Oxycodone HCl 10 mg PO Q4H PRN #15 tab 02/24/17 [Rx] Ipratropium/Albuterol Neb [Duoneb] 3 ml IH QID 03/02/17 [History] Tiotropium Rh[place] [Spiriva Respimat] 2 puff IH DAILY 03/02/17 [History] 3 Allergy/AdvReac Type Severity Reaction Status Date / Time citalopram [From Celexa] Allergy Difficulty Verified 02/01/17 09:53 Breathing amlodipine [From Norvasc] AdvReac Difficulty Verified 02/01/17 09:53 Breathing haloperidol [From Haldol] AdvReac Hallucinati Verified 02/01/17 09:53 ng risperidone AdvReac See Verified 02/01/17 09:53 Comments roflumilast [From Daliresp] AdvReac Difficulty Verified 02/01/17 09:53 Breathing All Systems PM: A 10-system review of systems was performed and is negative for pertinent findings except as documented above in the HPI. - Constitutional Constitutional: no chills, no fever(s), no night sweats - EENT Eyes: no change in vision, no discharge, no pain, no photophobia Ears: no ear discharge, no ear pain, no tinnitus Nose, mouth and throat: no dysphagia, no nasal discharge, no neck pain, no sore throat - Cardiovascular Cardiovascular ROS IM: dyspnea, edema, lightheadedness, no chest pain, no diaphoresis, no palpitations, no syncope - Respiratory Respiratory: cough, dyspnea, wheezing, pain with cough, no excessive phlegm production - Gastrointestinal Gastrointestinal: constipation, no abdominal pain, no diarrhea, no hematemesis, no hematochezia, no melena, no nausea, no vomiting - Genitourinary Genitourinary: no change in urinary stream, no dysuria, no flank pain, no hematuria - Musculoskeletal Musculoskeletal ROS IM: no numbness, no tingling - Integumentary Integumentary IM: no rash, no unusual bruising - Neurological Neurological ROS: no confusion, no convulsions, no focal weakness, no numbness, no tingling, no tremor(s) - Hematologic/Lymphatic Hematologic/Lymphatic: no easy bruising - Constitutional Vitals: Temp Pulse Resp BP Pulse Ox 97.9 F 99 20 138/76 94 03/02/17 19:42 03/02/17 19:42 03/02/17 19:42 03/02/17 19:42 03/02/17 19:42 General appearance: Present: mild distress, A&O X 3, pleasant - Head Head exam: Present: atraumatic, normocephalic - Eye Eye exam: Present: PERRL, conjuntiva pink, sclera anicteric Pupils: Present: PERRL - Neck Neck exam general surgery: Present: supple, trachea midline. Absent: lymphadenopathy - Respiratory Respiratory exam: Present: prolonged expiratory phase, rales, rhonchi, tachypnea. Absent: accessory muscle use, wheezes - Cardiovascular Cardiovascular exam: Present: RRR, +S1, +S2. Absent: diastolic murmur, gallop, rubs, systolic murmur - GI/Abdominal GI/Abdominal exam: Present: normal bowel sounds, soft, no peritoneal signs. Absent: distended, tenderness - Extremities Exam Extremities exam: Present: pedal edema (BLE +2-3 edema), warm, radial pulses palpable and symmetrical. Absent: calf tenderness, cyanotic - Neurological Exam Neurological exam: Present: CN II-XII intact, oriented X3, no focal deficits. Absent: pronater drift, facial droop, speech deficit - Skin Skin exam: Present: dry, intact Internal Med - H&P Results - Labs CBC & Chem 7: 03/02/17 13:46 03/02/17 13:46 Labs: All Lab Results (24 Hours) 03/02/17 03/02/17 03/02/17 Range/Units 13:46 13:46 13:46 WBC 13.4 H (4.3-11.1) K/mcL RBC 3.42 L (3.82-4.97) M/mcL Hgb 9.8 L (11.5-15.4) g/dL Hct 33.2 L (35.3-44.9) % MCV 97.1 (83.0-100.0) fL MCH 28.7 (28.0-33.3) pg MCHC 29.5 L (31.6-35.5) g/dL RDW 16.1 H (11.5-14.5) % Plt Count 308 (140-400) K/mcL MPV 9.3 L (9.4-12.4) fL Immature Gran % 4.4 H (0-4) % Seg Neutrophils % 86.2 % Lymphocytes % 5.4 % Monocytes % 3.3 % Eosinophils % 0.1 % Basophils % 0.6 % Neutrophils # 11.6 H (1.6-8.9) K/mcL Lymphocytes # 0.7 (0.6-4.6) K/mcL Monocytes # 0.4 (0.0-1.3) K/mcL Eosinophils # 0.0 (0.0-0.6) K/mcL Basophils # 0.1 (0.0-0.2) K/mcL Sodium 146 H (136-145) mEq/L Potassium 4.6 H (3.5-4.5) mEq/L Chloride 105 (98-109) mEq/L Carbon Dioxide 31 H (19-29) mEq/L BUN 37 H (7-20) mg/dL Creatinine 1.23 H (0.57-1.11) mg/dL Est GFR ( Amer) 51 L (> 60) Est GFR (Non-Af Amer) 42 L (> 60) BUN/Creatinine Ratio 30 H (6-26) Glucose 115 H (70-99) mg/dL Calculated Osmolality 312 H (280-300) Calcium 9.1 (8.6-10.8) mg/dL Troponin I 0.02 (0-0.03) ng/mL B-Natriuretic Peptide (0-100) pg/mL 03/02/17 Range/Units 13:46 WBC (4.3-11.1) K/mcL RBC (3.82-4.97) M/mcL Hgb (11.5-15.4) g/dL Hct (35.3-44.9) % MCV (83.0-100.0) fL MCH (28.0-33.3) pg MCHC (31.6-35.5) g/dL RDW (11.5-14.5) % Plt Count (140-400) K/mcL MPV (9.4-12.4) fL Immature Gran % (0-4) % Seg Neutrophils % % Lymphocytes % % Monocytes % % Eosinophils % % Basophils % % Neutrophils # (1.6-8.9) K/mcL Lymphocytes # (0.6-4.6) K/mcL Monocytes # (0.0-1.3) K/mcL Eosinophils # (0.0-0.6) K/mcL Basophils # (0.0-0.2) K/mcL Sodium (136-145) mEq/L Potassium (3.5-4.5) mEq/L Chloride (98-109) mEq/L Carbon Dioxide (19-29) mEq/L BUN (7-20) mg/dL Creatinine (0.57-1.11) mg/dL Est GFR ( Amer) (> 60) Est GFR (Non-Af Amer) (> 60) BUN/Creatinine Ratio (6-26) Glucose (70-99) mg/dL Calculated Osmolality (280-300) Calcium (8.6-10.8) mg/dL Troponin I (0-0.03) ng/mL B-Natriuretic Peptide 955 H (0-100) pg/mL - Diagnostic Studies Chest x-ray Additional comments: Chest X-Ray 03/02/17 13:28 IMPRESSION: Cardiomegaly and pulmonary edema, similar in appearance. D/ / Nadia Cruz MD / Nadia Cruz MD Interpreting Provider: Nadia Cruz MD <Kenyon Watson - Last Filed: 03/02/17 22:53> Date of Encounter: 03/02/17 Time of Encounter: 21:55 - Cardiovascular Cardiovascular ROS IM: dyspnea, dyspnea on exertion, edema - Respiratory Respiratory: cough, dyspnea, wheezing, no hemoptysis - Constitutional Vitals: Temp Pulse Resp BP Pulse Ox 97.9 F 99 18 138/76 95 03/02/17 19:42 03/02/17 19:42 03/02/17 22:12 03/02/17 19:42 03/02/17 22:12 General appearance: Present: mild distress, A&O X 3 - Eye Eye exam: Present: PERRL. Absent: scleral icterus - Neck Neck exam general surgery: Present: supple. Absent: tenderness - Respiratory Respiratory exam: Present: prolonged expiratory phase, rales, rhonchi. Absent: chest wall tenderness - Cardiovascular Cardiovascular exam: Present: distant heart sounds, RRR, +S1, +S2. Absent: diastolic murmur, JVD, systolic murmur - GI/Abdominal GI/Abdominal exam: Present: normal bowel sounds, soft. Absent: tenderness - Extremities Exam Extremities exam: Present: full ROM, pedal edema, warm. Absent: calf tenderness - Back Exam Back exam: Absent: CVA tenderness (L), CVA tenderness (R) - Neurological Exam Neurological exam: Present: alert, oriented X3, no focal deficits - Psychiatric Psychiatric exam: Present: normal affect, normal mood - Skin Skin exam: Absent: rash Additional comments: wound to right pretibial area -- dressed Internal Med - H&P Results - Labs CBC & Chem 7: 03/02/17 13:46 03/02/17 13:46 - Diagnostic Studies Chest x-ray Status: image reviewed by me (enlarged heart and CHF findings) - Attending Attestation I discussed the patient [place], PMH, ROS, lab data, and exam findings with Isabel Grace CNP. I then saw and examined patient independently as well. Patient is now resting comfortably, but she appears chronically ill, frail, and chronically short of breath. I spoke with patient and daughter at length. Patient was recently discharged from Hospice as she wanted to pursue radiation treatment for her lung cancer. She remains DNR/DNI, and she is still interested in Hospice. We will consult palliative care to assist in her care and discharge needs. I am concerned that patient may need care beyond what the family can provide upon discharge. Discussed with daughter and she is aware. Other than my comments above and noted exam findings, I agree with Isabel's assessment and plan.
[2017-03-02] MEDS: *HR* LORazepam 0.5 MG TABLET PO SCH (20:39)
[2017-03-02] MEDS: *HR* LORazepam 1 MG TABLET PO SCH (20:39)
[2017-03-02] MEDS: BuPROPion SR (12 HR) 100 MG TABLET PO SCH (20:39)
[2017-03-02] MEDS: hydrALAZINE 25 MG TABLET PO SCH (20:40)
[2017-03-02] MEDS ORDERED: Ipratropium/Albuterol Neb 3 ML IH SCH (21:00)
[2017-03-02] MEDS: Ipratropium/Albuterol Neb 3 ML IH SCH (22:12)
[2017-03-02] MEDS: Budesonide/Formoterol 160/4.5 MDI IH SCH (22:12)
[2017-03-02] MEDS: *HR* Heparin 5,000 UNIT/ML VIAL SQ SCH (23:23)
[2017-03-02] MEDS: Furosemide 40 MG/4 ML VIAL IVP SCH (23:23)
[2017-03-03] MEDS: Ipratropium/Albuterol Neb 3 ML IH SCH ×4 (04:00→22:33)
[2017-03-03 04:02] LABS: Basophils % 0.5 %; Hematocrit 31.3 % (35.3-44.9); Hemoglobin 9.3 g/dL (11.5-15.4); Immature Granulocytes % 2.3 % (0-4); Lymphocytes # 0.6 K/mcL (0.6-4.6); Lymphocytes % 6.7 %; Mean Corpuscular HGB Conc 29.7 g/dL (31.6-35.5); Mean Corpuscular Hemoglobin 29.2 pg (28.0-33.3); Mean Corpuscular Volume 98.1 fL (83.0-100.0); Mean Platelet Volume 9.8 fL (9.4-12.4); Monocytes # 0.3 K/mcL (0.0-1.3); Neutrophils # 7.6 K/mcL (1.6-8.9); Nucleated Red Blood Cells 0.2 /100 WBC (0); Platelet Count 263 K/mcL (140-400); Red Blood Count 3.19 M/mcL (3.82-4.97); Segmented Neutrophils % 87.5 %
[2017-03-03 04:12] LABS: Potassium 4.1 mEq/L (3.5-4.5)
[2017-03-03] MEDS: MethylPREDNISolone 40 MG/ML VIAL IVP SCH ×3 (05:22→18:08)
[2017-03-03] MEDS: *HR* Heparin 5,000 UNIT/ML VIAL SQ SCH ×3 (07:47→23:32)
[2017-03-03] MEDS: Furosemide 40 MG/4 ML VIAL IVP SCH ×2 (07:47→16:50)
[2017-03-03] MEDS: hydrALAZINE 25 MG TABLET PO SCH ×3 (07:48→20:28)
[2017-03-03] MEDS: *HR* OxyCODONE Immed Rel 5 MG TABLET PO PRN ×2 (07:48→14:05)
[2017-03-03] MEDS: *HR* LORazepam 0.5 MG TABLET PO SCH ×4 (07:48→20:28)
[2017-03-03] MEDS: Diltiazem CD (24hr) 180 MG CAPSULE PO SCH (07:48)
[2017-03-03] MEDS: Metoprolol XL (24 HR) Succ 50 MG TAB.ER.24H PO SCH (07:48)
[2017-03-03] MEDS: levoFLOXacin 750 MG TABLET PO SCH (07:48)
[2017-03-03] MEDS: Isosorbide MONOnitrate (24 HR) 60 MG TAB.ER.24H PO SCH (07:48)
[2017-03-03] MEDS: (Tiotropium Bromide [Spiriva Respimat] 2 PUFF) IH SCH (07:49)
[2017-03-03] MEDS: BuPROPion SR (12 HR) 100 MG TABLET PO SCH ×2 (07:52→20:28)
[2017-03-03] MEDS: Budesonide/Formoterol 160/4.5 MDI IH SCH ×2 (10:16→22:29)
[2017-03-03] MEDS ORDERED: Bisacodyl 10 MG RECTAL SUPPOSITORY RC PRN (11:27)
[2017-03-03 11:53] LABS: Bilirubin,Urine Negative (Negative); Blood,Urine Negative (Negative); Clarity,Urine Clear (Clear); Color,Urine Yellow (Yellow); Glucose,Urine (UA) Normal (Normal); Ketones,Urine Negative (Negative); Leukocyte Esterase,Urine Moderate (Negative); Nitrite,Urine Negative (Negative); Protein,Urine Negative (Neg-Trace); Specific Gravity,Urine 1.016 (1.010-1.025); Urobilinogen,Urine Normal (Normal)
[2017-03-03 11:56] LABS: Bacteria,Urine Few per hpf (None-Few); Hyaline Casts,Urine None Seen per lpf (None-Few); Squamous Epithelial Cell,Urine Many per lpf (None-Few); WBC,Urine 15-30 per hpf (0-3)
[2017-03-03] MEDS: *HR* Morphine Sulfate SR (12 HR) 15 MG TABLET.ER PO SCH ×2 (12:01→18:08)
--- NOTE | 2017-03-03 14:38 | Palliative - Consult Note ---
Date of Encounter: 03/03/17 Time of Encounter: 14:30 - Assessment and Plan (1) Dyspnea Current Visit: No Status: Acute Assessment and plan: Continues with supportive bipap, aerosols, diuretics. Monitor Have began low dose MS Contin for her pain management - this may help with dyspnea as well. Qualifiers: Dyspnea type: unspecified Qualified Code(s): R06.00 - Dyspnea, unspecified (2) Generalized pain Current Visit: Yes Status: Acute Assessment and plan: She continues with great deal of pain with deep inspiration, any movement, coughing. She states Oxycodone helps somewhat, but she is still uncomfortable most of time. Only not in pain when she lays perfectly still. I am going to begin low dose MS Contin 15mg every 12 hours and will continue Oxycodone for breakthrough pain. This may overall assist with her dyspnea as well. (3) Constipation Current Visit: Yes Status: Acute Assessment and plan: No BM x6 days. Will begin Senokot 2 tabs bid, and add suppository PRN. Monitor . D/W daughter she will need to remain on bowel regimen with opioids. Qualifiers: Constipation type: other constipation type Qualified Code(s): K59.09 - Other constipation (4) Anxiety Current Visit: No Status: Chronic Assessment and plan: Continue with home dose Lorazepam. Monitor (5) Counseling regarding advanced care planning and goals of care Current Visit: Yes Status: Acute Assessment and plan: Pateint daughter Jade at bedside. She states that [facility] home health is following , and after radiation is complete, they plan on transitioning to hospice. We discussed that there is a chance, she is not stable enough for radiation, or that she may not tolerate it. Daughter knows to contact [facility] homecare and that they will transition to hospice at that time. Palliative will f/u on Monday (6) Acute CHF (congestive heart failure) Current Visit: No Status: Acute Qualifiers: Congestive heart failure type: systolic Qualified Code(s): I50.21 - Acute systolic (congestive) heart failure Palliative-CN HPI - Data of Consult Consult date: 03/03/17 Requesting Physician: Celia Gallardo CNP Primary Care Provider: Lisbeth Salmon CNP - Consult Narrative History of present illness: Ms. Khalil is a 81 year old female known to the palliative care team from previous admissions, who was admitted with severe shortness of breath that began a few hours prior to admission. She was just discharged last Monday to home with [facility] health. Daughter states pt legs were very edematous still when discharged last week. Patient treated with IV Furosemide and has supportive bipap and is currently doing some better. Daughter states leg edema greatly improved. This pt has a past history of [facility], however, they were not satisfied with her care, and they revocated from hospice. She has a new finding of lung cancer, and has been seen by [facility]. There are plans for 5 radiation treatments to lesions and she has appt on 03/09 to begin process. She has had issues with pain management r/t compression and rib fractures. She was not a candidate for vertebraplasty. Upon my visit, she remains on bipap and appears quite anxious. C/o severe pain in back and rt ribcage when deep breathing and coughing. C/o constipattion with no BM x6 days. Daughter at bedside is tearful - they have not been able to get medications since she revoked from hospice r/t insurance issues. States that pt really wants radiation treatment, and plan afterwards is to enroll with [facility] hospice after treatments complete. CC: Celia Gallardo, [place] Past Med Surg Social Fam HX - Past Medical History Medical history: arthritis, cancer, CHF, COPD, coronary artery disease, dementia , GERD, hyperlipidemia, hypertension, myocardial infarction, osteoporosis, peripheral artery disease, renal disease, other Psychiatric history: anxiety, depression - Past Surgical History Surgical History: cholecystectomy, hysterectomy, orthopedic, other, BHARATHI/BSO, other - Social History Smoking Status: Former smoker Smokeless Tobacco Status: No Alcohol use: none Drug use: none - Family History Father Living Status: Hx Family Cardiac Disorders: Yes Hx Family Cancer: Yes (RCC) Mother Living Status: Hx Family Cardiac Disorders: Yes Hx Family Respiratory Disorders: No Hx Family Cancer: Yes (bladder cancer) Hx Family GI Disorders: No Hx Family Endocrine Disorder: No Hx Family Neuromuscular Disorders: No Hx Family Neurologic Disorders: No Medications and Allergies Budesonide/Formoterol 160/4.5 [Symbicort] 2 puff IH BID 02/20/15 [History] Clopidogrel [Plavix] 75 mg PO DAILY 02/20/15 [History] Donepezil [Aricept] 10 mg PO HS 04/03/15 [History] Ascorbate Calcium [Vitamin C] 500 mg PO DAILY 07/09/15 [History] Isosorbide MONOnitrate (24 HR) [Imdur] 60 mg PO DAILY 07/09/15 [History] Simvastatin [Zocor] 10 mg PO HS 07/09/15 [History] Melatonin 10 mg PO HS 08/12/16 [History] Albuterol Sulfate [Proair Hfa] 2 puff IH Q4H PRN 10/20/16 [History] Ferrous Sulfate 325 mg PO DAILY 10/20/16 [History] Hydralazine HCl 50 mg PO TID 10/20/16 [History] Nitroglycerin [Nitrostat] 0.4 mg SL Q5M PRN 10/20/16 [History] Oxygen 3 l NS CONT 10/20/16 [History] Sertraline [Zoloft] 100 mg PO DAILY 10/20/16 [History] buPROPion HCl [Bupropion HCl Sr] 200 mg PO BID 10/20/16 [History] LORazepam [Ativan] 1 mg PO HS 11/22/16 [History] Diltiazem CD (24hr) [Cardizem CD] 360 mg PO DAILY cap.er.24h 12/01/16 [Rx] predniSONE [PredniSONE] 30 mg PO DAILY 02/01/17 [History] Furosemide [Lasix] 80 mg PO 0800 02/16/17 [History] Pantoprazole Sodium [Protonix] 40 mg PO DAILY 02/16/17 [History] Potassium Chloride [Klor-Con 10] 10 meq PO BID 02/16/17 [History] Furosemide [Lasix] 40 mg PO 1200 02/20/17 [History] GuaiFENesin ER [Mucinex] 600 mg PO BID 02/20/17 [History] LORazepam [Ativan] 0.5 mg PO QID #120 tablet 02/24/17 [Rx] Metoprolol XL (24 HR) Succ [Toprol Xl] 150 mg PO DAILY #90 tab.er.24h 02/24/17 [ Rx] Oxycodone HCl 10 mg PO Q4H PRN #15 tab 02/24/17 [Rx] Ipratropium/Albuterol Neb [Duoneb] 3 ml IH QID 03/02/17 [History] Tiotropium [place] [Spiriva Respimat] 2 puff IH DAILY 03/02/17 [History] 3 Allergy/AdvReac Type Severity Reaction Status Date / Time citalopram [From Celexa] Allergy Difficulty Verified 02/01/17 09:53 Breathing amlodipine [From Norvasc] AdvReac Difficulty Verified 02/01/17 09:53 Breathing haloperidol [From Haldol] AdvReac Hallucinati Verified 02/01/17 09:53 ng risperidone AdvReac See Verified 02/01/17 09:53 Comments roflumilast [From Daliresp] AdvReac Difficulty Verified 02/01/17 09:53 Breathing All systems: reviewed and no additional remarkable complaints except as stated ( increasing shortness of breath, moist cough, weakness, Right ribs and back pain with movement or coughing) Palliative Care-Exam - Constitutional Vitals: Temp Pulse Resp BP Pulse Ox 98.3 F 134 18 139/70 90 03/03/17 11:32 03/03/17 11:32 03/03/17 11:32 03/03/17 11:32 03/03/17 11:32 General appearance: Present: mild distress - Head Head Exam: Present: normal inspection, normocephalic - Eye Pupils: Present: PERRL - Respiratory Additional comments: Rhonchi noted throughout. Currently utilizing bipap - Cardiovascular Cardiovascular exam: Present: +S1, +S2 - GI/Abdominal Exam GI/Abdominal exam: Present: diminished bowel sounds, distended, soft - Catheter Type: Urethral (French) - Extremities Exam Additional comments: 2+ edema bilateral lower extremities. - Neurological Exam Neurological exam: Present: alert, strengths equal and symetr throughout Additional comments: Oriented to name and place - Skin Skin exam: Present: dry, pallor Internal Medicine - CN: Reslt - Labs CBC & Chem 7: 03/03/17 03:37 03/03/17 03:37 Labs: Short CBC 03/03/17 Range/Units 03:37 WBC 8.6 (4.3-11.1) K/mcL Hgb 9.3 L (11.5-15.4) g/dL Hct 31.3 L (35.3-44.9) % Plt Count 263 (140-400) K/mcL Neutrophils # 7.6 (1.6-8.9) K/mcL BMP 03/03/17 03:37 Sodium 147 H Potassium 4.1 Chloride 104 Carbon Dioxide 33 H BUN 38 H Creatinine 1.24 H Glucose 175 H Calcium 9.0 Urine 03/03/17 Range/Units 11:41 Urine Color Yellow (Yellow) Urine Clarity Clear (Clear) Urine pH 6.0 (5.0-8.0) pH Units Ur Specific [place] 1.016 (1.010-1.025) Urine Protein Negative (Neg-Trace) mg/dL Urine Glucose (UA) Normal (Normal) mg/dL Consult Discharge Plan - Plan Referrals: Lisbeth Salmon, JEWELRY CUTTER [Primary Care Provider] - Palliative Quality Palliative Quality: Screen for Code Status: Yes, Screen for Goals of Care: Yes, Screen for Pain: Yes, If Pain Regimen Started, Initiate Bowel Regimen: Yes, Screen for Nausea/Vomitting: Yes
[2017-03-03 15:58] LABS: ABG Base Excess 7 mEq/L (-2 to 3); ABG HCO3 33 mEq/L (21-27); ABG Oxygen Saturation 98 % (95-98); ABG PCO2 49 mmHg (35-45); ABG PH 7.43 pH Units (7.32-7.45); ABG PO2 104 mmHg (85-104); ABG TCO2 34 mEq/L (20-26)
--- NOTE | 2017-03-03 17:16 | Internal Med Progress Note ---
Date of Encounter: 03/03/17 Time of Encounter: 17:13 - Assessment and plan (1) Acute and chronic respiratory failure with hypoxia Current Visit: Yes Status: Acute Assessment and plan: Mayra Khalil is a 81-year-old female with past medical history COPD, A. fib, CHF , chronic respiratory failure, and lung cancer presented to [facility] on 03/02/2017 complaints of worsening shortness of breath and increased leg swelling. She was found to be in acute CHF exacerbation was admitted for IV diuresis. 1. Acute on chronic diastolic heart failure: 10/2016 TTE with EF 60%, moderate diastolic dysfunction and severely dilated left atrium. Chest x-ray cardiomegaly and pulmonary edema. BNP 900. Appears clinically overloaded with crackles in lower extremity edema. Holding home Lasix. IV diuresis with Lasix. Consider repeating echo with A. fib RVR to reassess EF. Continue IV Lasix, daily weights, strict I and O's. 2. COPD exacerbation: Has known underlying COPD. CXR without evidence of pneumonia however clinically appears to be in COPD exacerbation with productive cough and diffuse wheezing. Continue IV steroids, Levaquin, DuoNeb nebs. BiPAPPRN. 3. Atrial fibrillation with RVR: Known history A. fib. Initially rate controlled however now sustaining heart rates in one teens to 120s. Start Cardizem drip. Continue home CCB, BB. Not on anticoagulation as previously determined risk outweighs benefit. 4. Acute on chronic respiratory failure with hypoxia: Multifactorial with acute on chronic heart failure and COPD exacerbation. Continue treating underlying causes. Wean to home dose of 3 L O2 as able. Strongly encouraged patient to wear BiPAP however she is refusing. Continue supplemental O2 5. Hypernatremia: mild; Na 147. Hold on IV fluids with CHF exacerbation. Monitor repeat CMP 6. Compression fracture: Has known T6 compression fracture; previously evaluated by orthopedics who recommended medical management as she is not a candidate for vertebral plasty. Evaluated by palliative care on 03/03 and morphine increased. Continue judicious pain control 7. Lung cancer: per hx. planing on 4 treatments of palliative radiation. Follow up outpatient as previously planned 8. DVT prophylaxis: Heparin 9. Code status: DNRCC; DNI. Verified with patient and family on 03/03. Had long discussion with patient and family regarding respiratory status; both patient and family confirmed they do not want CPR or intubation. (2) Lung cancer Current Visit: Yes Status: Acute Qualifiers: Laterality: unspecified laterality Qualified Code(s): C34.90 - Malignant neoplasm of unspecified part of unspecified bronchus or lung (3) Acute kidney injury superimposed on CKD Current Visit: Yes Status: Acute (4) Acute on chronic congestive heart failure Current Visit: Yes Status: Acute Qualifiers: Congestive heart failure type: unspecified congestive heart failure type Qualified Code(s): I50.9 - Heart failure, unspecified (5) Atrial fibrillation with RVR Current Visit: No Status: Acute (6) Chronic pain syndrome Current Visit: No Status: Chronic (7) DVT prophylaxis Current Visit: Yes Status: Acute (8) Hypernatremia Current Visit: No Status: Acute - Subjective Interval history: Seen and examined at bedside, patient has new to me. Information obtained from chart review and patient report. Patient says she feels slightly better, but still short of breath and very anxious. No chest pain. Has chronic back pain. - Constitutional Vitals: Temp Pulse Resp BP Pulse Ox 97.9 F 112 17 126/69 94 03/03/17 15:24 03/03/17 16:47 03/03/17 15:49 03/03/17 16:47 03/03/17 15:49 General appearance: Present: cachectic, mild distress, A&O X 3 - Head Head exam: Present: atraumatic, normocephalic - Eye Eye exam: Present: PERRL, conjuntiva pink, sclera anicteric Pupils: Present: PERRL - Neck Neck exam general surgery: Present: supple, trachea midline. Absent: lymphadenopathy - Respiratory Respiratory exam: Present: accessory muscle use, rales, rhonchi. Absent: wheezes Additional comments: Mildly dyspneic - Cardiovascular Cardiovascular exam: Present: RRR, +S1, +S2. Absent: diastolic murmur, gallop, rubs, systolic murmur - GI/Abdominal GI/Abdominal exam: Present: normal bowel sounds, soft, no peritoneal signs. Absent: distended, tenderness - Extremities Exam Extremities exam: Present: warm, radial pulses palpable and symmetrical. Absent : calf tenderness, cyanotic, pedal edema - Neurological Exam Neurological exam: Present: CN II-XII intact, oriented X3, no focal deficits. Absent: pronater drift, facial droop, speech deficit - Skin Skin exam: Present: dry, intact Internal Medicine: Result - Labs CBC & Chem 7: 03/03/17 03:37 03/03/17 03:37 Labs: Short CBC 03/03/17 Range/Units 03:37 WBC 8.6 (4.3-11.1) K/mcL Hgb 9.3 L (11.5-15.4) g/dL Hct 31.3 L (35.3-44.9) % Plt Count 263 (140-400) K/mcL Neutrophils # 7.6 (1.6-8.9) K/mcL BMP 03/03/17 03:37 Sodium 147 H Potassium 4.1 Chloride 104 Carbon Dioxide 33 H BUN 38 H Creatinine 1.24 H Glucose 175 H Calcium 9.0 Urine 03/03/17 Range/Units 11:41 Urine Color Yellow (Yellow) Urine Clarity Clear (Clear) Urine pH 6.0 (5.0-8.0) pH Units Ur Specific [place] 1.016 (1.010-1.025) Urine Protein Negative (Neg-Trace) mg/dL Urine Glucose (UA) Normal (Normal) mg/dL - ABG Interpretation ABG results: ABG ABG pH 7.43 pH Units (7.32-7.45) 03/03/17 15:55 ABG pCO2 49 mmHg (35-45) H 03/03/17 15:55 ABG pO2 104 mmHg (85-104) 03/03/17 15:55 ABG O2 Saturation 98 % (95-98) 03/03/17 15:55 - VTE Documentation of Mechanical Device: Intermittent pneumatic compression device Consult Discharge Plan - Plan Referrals: Lisbeth Salmon, MEDICAL SECRETARY [Primary Care Provider] -
--- NOTE | 2017-03-03 19:04 | Electrocardiograph Report ---
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
[2017-03-03] MEDS: Sennosides/Docusate Sodium TABLET PO SCH (20:28)
[2017-03-03] MEDS: *HR* LORazepam 1 MG TABLET PO SCH (20:28)
[2017-03-04] MEDS: Ipratropium/Albuterol Neb 3 ML IH SCH ×4 (04:41→22:36)
[2017-03-04 04:50] LABS: Hematocrit 31.5 % (35.3-44.9); Hemoglobin 9.2 g/dL (11.5-15.4); Mean Corpuscular HGB Conc 29.2 g/dL (31.6-35.5); Mean Corpuscular Hemoglobin 28.8 pg (28.0-33.3); Mean Corpuscular Volume 98.4 fL (83.0-100.0); Mean Platelet Volume 9.5 fL (9.4-12.4); Platelet Count 267 K/mcL (140-400); Red Cell Distribution Width 16.4 % (11.5-14.5)
[2017-03-04 05:00] LABS: Albumin 2.7 g/dL (3.5-5.0); Albumin/Globulin Ratio 0.9 (1.1-2.2); Bilirubin,Total 0.2 mg/dL (0.2-1.2); Calcium 8.9 mg/dL (8.6-10.8); Potassium 4.4 mEq/L (3.5-4.5); Total Protein 5.7 g/dL (6.0-8.3)
[2017-03-04] MEDS: MethylPREDNISolone 40 MG/ML VIAL IVP SCH ×2 (06:07→18:18)
[2017-03-04] MEDS: *HR* Morphine Sulfate SR (12 HR) 15 MG TABLET.ER PO SCH ×2 (06:07→18:18)
[2017-03-04] MEDS: *HR* LORazepam 0.5 MG TABLET PO SCH ×4 (08:40→22:30)
[2017-03-04] MEDS: levoFLOXacin 750 MG TABLET PO SCH (08:41)
[2017-03-04] MEDS: hydrALAZINE 25 MG TABLET PO SCH ×3 (08:41→22:30)
[2017-03-04] MEDS: Metoprolol XL (24 HR) Succ 50 MG TAB.ER.24H PO SCH ×2 (08:41→12:18)
[2017-03-04] MEDS: BuPROPion SR (12 HR) 100 MG TABLET PO SCH ×2 (08:41→20:30)
[2017-03-04] MEDS: Sennosides/Docusate Sodium TABLET PO SCH ×2 (08:41→20:30)
[2017-03-04] MEDS: Isosorbide MONOnitrate (24 HR) 60 MG TAB.ER.24H PO SCH (08:41)
[2017-03-04] MEDS: Furosemide 40 MG/4 ML VIAL IVP SCH (08:42)
[2017-03-04] MEDS: *HR* Heparin 5,000 UNIT/ML VIAL SQ SCH ×2 (08:42→16:23)
[2017-03-04] MEDS: Diltiazem CD (24hr) 180 MG CAPSULE PO SCH (08:42)
[2017-03-04] MEDS: (Tiotropium Bromide [Spiriva Respimat] 2 PUFF) IH SCH (08:47)
[2017-03-04] MEDS: *HR* OxyCODONE Immed Rel 5 MG TABLET PO PRN ×3 (08:54→23:26)
[2017-03-04] MEDS ORDERED: 0.9 % Sodium Chloride 1,000 ML ONE (09:58)
[2017-03-04] MEDS: Budesonide/Formoterol 160/4.5 MDI IH SCH ×2 (10:28→22:36)
--- NOTE | 2017-03-04 10:53 | Cardiology Consult Note ---
Date of Encounter: 03/04/17 Time of Encounter: 10:50 Assessment and Plan (1) Atrial fibrillation Current Visit: Yes Status: Acute HR will be difficult to control in setting of acute COPD/CHF exacerbation. Continue cardizem drip and metoprolol, up titrate both to HR of <110 average. Patient is not a candidate for anticoagulation given her falls, anemia and lung cancer. Continue plavix (aspirin not advised per GI). Qualifiers: Atrial fibrillation type: paroxysmal Qualified Code(s): I48.0 - Paroxysmal atrial fibrillation (2) Acute on chronic congestive heart failure Current Visit: Yes Status: Acute Continue diuresis but switch to IV bumex Advise that when she is discharged, she be switched to BUMEX 2mg po QD with sodium restriction, daily morning postvoid weight and zaroxolyn 2.5mg po 2x/week prn weight gain/edema to reduce risk of hospitalization. Imdur will be increased to 120mg for preload reduction Qualifiers: Congestive heart failure type: diastolic Qualified Code(s): I50.33 - Acute on chronic diastolic (congestive) heart failure (3) COPD exacerbation Current Visit: Yes Status: Acute Continue treatment per primary team Discussion w patient/family: The assessment and plan as outlined above was discussed with the patient and/or family members who expressed understanding and agreement. All questions were answered. Thank you for involving us in the care of your patient. Please call with any questions. History of Present Illness Consult date: 03/04/17 Chief complaint: Dyspnea and palpitations History of present illness: Ms. Khalil is a 81 year old female previously on hospice, recently diagnosed with lung cancer undergoing chemotherapy with anemia, chronic kidney disease, COPD and diastolic CHF on oxygen, presents with dyspnea that is ongoing for several days associated with lower extremity swelling and mildly productive cough. It has been worsening overall and worse with exertion. She denies chest /jaw/arm discomfort. She has chronic debilitating pain from compression fractures - vertebral. She has a miles in place. She states she takes plavix at home. From her outpatient hospital fu 11/2016 1. Atrial fibrillation, unspecified type Notes: New diagnosis during recent hospitalization in setting of COPD/ respiratory failure. HR 112 at office visit today. Per daughter HR ~100 bpm at [place], with highest she has seen 112. Pt is on Cardizem CD 360mg daily and 25mg Toprol XL daily. Recommend increasing Toprol XL to 50mg daily for better rate control. Pt denies palpitations. She does report worsened fatigue. She declines sleep study. CHADSVASC 5 (Age, HTN, Female, CAD). She has frequent falls and chronic severe anemia, so ASA only recommended. However, pt and daughter report GI telling her not to take ASA. She is on Plavix currently. Continue Plavix. Instructed pt and daughter to call if HR remains >100bpm. They verbalize understanding. Echo 11/2016 EF improved to 60%. Follow-up in 3 months or sooner if needed. 2. Chronic diastolic CHF (congestive heart failure) Notes: Echo 11/2016 EF 60%, moderate diastolic dysfunction. Pt reports breathing is at baseline, but has 2+ BLE edema that has been stable. She is on Lasix 40mg daily. Discussed increasing Lasix, which she declines due to the amount of urination on higher doses. No acute exacerbation. Continue current Lasix dose. Discussed 2L fluid restriction, low Na diet and daily weights. 3. Coronary artery disease involving [place] coronary artery of [place] heart without angina pectoris Notes: LHC 01/2016 showed occluded RCA with mature left to right collaterals filling the PDA. Intermediate 50-60% mid LAD stenosis. Mild-moderately elevated LVEDP. Pt denies chest pain. Continue ASA, Statin, BB. Past Med Surg Social Fam HX - Past Medical History Medical history: arthritis, cancer, CHF, COPD, coronary artery disease, dementia , GERD, hyperlipidemia, hypertension, myocardial infarction, osteoporosis, peripheral artery disease, renal disease, other Psychiatric history: anxiety, depression - Past Surgical History Surgical History: cholecystectomy, hysterectomy, orthopedic, other, BHARATHI/BSO, other - Social History Smoking Status: Former smoker Smokeless Tobacco Status: No Alcohol use: none Drug use: none - Family History Father Living Status: Hx Family Cardiac Disorders: Yes Hx Family Cancer: Yes (RCC) Mother Living Status: Hx Family Cardiac Disorders: Yes Hx Family Respiratory Disorders: No Hx Family Cancer: Yes (bladder cancer) Hx Family GI Disorders: No Hx Family Endocrine Disorder: No Hx Family Neuromuscular Disorders: No Hx Family Neurologic Disorders: No Medications and Allergies Budesonide/Formoterol 160/4.5 [Symbicort] 2 puff IH BID 02/20/15 [History] Clopidogrel [Plavix] 75 mg PO DAILY 02/20/15 [History] Donepezil [Aricept] 10 mg PO HS 04/03/15 [History] Ascorbate Calcium [Vitamin C] 500 mg PO DAILY 07/09/15 [History] Isosorbide MONOnitrate (24 HR) [Imdur] 60 mg PO DAILY 07/09/15 [History] Simvastatin [Zocor] 10 mg PO HS 07/09/15 [History] Melatonin 10 mg PO HS 08/12/16 [History] Albuterol Sulfate [Proair Hfa] 2 puff IH Q4H PRN 10/20/16 [History] Ferrous Sulfate 325 mg PO DAILY 10/20/16 [History] Hydralazine HCl 50 mg PO TID 10/20/16 [History] Nitroglycerin [Nitrostat] 0.4 mg SL Q5M PRN 10/20/16 [History] Oxygen 3 l NS CONT 10/20/16 [History] Sertraline [Zoloft] 100 mg PO DAILY 10/20/16 [History] buPROPion HCl [Bupropion HCl Sr] 200 mg PO BID 10/20/16 [History] LORazepam [Ativan] 1 mg PO HS 11/22/16 [History] Diltiazem CD (24hr) [Cardizem CD] 360 mg PO DAILY cap.er.24h 12/01/16 [Rx] predniSONE [PredniSONE] 30 mg PO DAILY 02/01/17 [History] Furosemide [Lasix] 80 mg PO 0800 02/16/17 [History] Pantoprazole Sodium [Protonix] 40 mg PO DAILY 02/16/17 [History] Potassium Chloride [Klor-Con 10] 10 meq PO BID 02/16/17 [History] Furosemide [Lasix] 40 mg PO 1200 02/20/17 [History] GuaiFENesin ER [Mucinex] 600 mg PO BID 02/20/17 [History] LORazepam [Ativan] 0.5 mg PO QID #120 tablet 02/24/17 [Rx] Metoprolol XL (24 HR) Succ [Toprol Xl] 150 mg PO DAILY #90 tab.er.24h 02/24/17 [ Rx] Oxycodone HCl 10 mg PO Q4H PRN #15 tab 02/24/17 [Rx] Ipratropium/Albuterol Neb [Duoneb] 3 ml IH QID 03/02/17 [History] Tiotropium [place] [Spiriva Respimat] 2 puff IH DAILY 03/02/17 [History] 3 Allergy/AdvReac Type Severity Reaction Status Date / Time citalopram [From Celexa] Allergy Difficulty Verified 02/01/17 09:53 Breathing amlodipine [From Norvasc] AdvReac Difficulty Verified 02/01/17 09:53 Breathing haloperidol [From Haldol] AdvReac Hallucinati Verified 02/01/17 09:53 ng risperidone AdvReac See Verified 02/01/17 09:53 Comments roflumilast [From Daliresp] AdvReac Difficulty Verified 02/01/17 09:53 Breathing All Systems Review: A 10-system review of systems was performed and is negative for pertinent findings except as documented above in the HPI. - Constitutional Constitutional: no chills, no fever(s) - EENT Eyes: no loss of vision, no pain Nose, mouth and throat: no bleeding gums, no epistaxis - Cardiovascular Cardiovascular: no chest pain at rest, no chest pain with exertion - Respiratory Respiratory: dyspnea, no hemoptysis - Gastrointestinal Gastrointestinal: no hematemesis, no hematochezia - Genitourinary Genitourinary: no dysuria, no hematuria - Musculoskeletal Musculoskeletal: abnormal gait, muscle weakness - Integumentary Integumentary: no rash, no unusual bruising - Neurological Neurological: no focal weakness, no loss of vision - Psychiatric Psychiatric: no anxiety, no depression - Hematological/Lymphatic Hematologic/Lymphatic: no easy bleeding, no easy bruising Physical Examination Vital Signs, Last 4 Hours Temp Pulse Resp BP Pulse Ox 03/04/17 10:28 98.7 F 126 15 110/74 93 03/04/17 10:10 97.9 F 129 16 124/78 93 03/04/17 07:45 98.2 F 118 14 133/82 90 General: Conversant, Other (distressed/tearful) HEENT: Atraumatic Neck: No JVD Cardiac: Other (tachy S1 S2 irreglar) Lungs: Other (bl rhonchi) Neuro: Alert and responsive, No focal deficits noted Abdomen: Soft, Non-Tender Skin: No rashes noted on visualized skin Musculoskeletal: No Chest Wall Tenderness Extremities: Other (2+ edema) Results 03/04/17 04:20 03/04/17 04:20 Lab Results 03/04/17 03/04/17 04:20 04:20 WBC 10.9 Hgb 9.2 L Hct 31.5 L Plt Count 267 Sodium 146 H Potassium 4.4 Chloride 104 Carbon Dioxide 34 H BUN 47 H Creatinine 1.55 H Glucose 172 H Calcium 8.9 Total Bilirubin 0.2 AST 13 ALT 24 Alkaline Phosphatase 65 - EKG Interpretation EKG results cardiology: personally reviewed (AF RVR) Consult Discharge Plan - Plan Referrals: Lisbeth Salmon, SHEET METAL ENGINEER [Primary Care Provider] -
[2017-03-04 11:48] LABS: ABG Base Excess 7 mEq/L (-2 to 3); ABG HCO3 32 mEq/L (21-27); ABG Oxygen Saturation 93 % (95-98); ABG PCO2 48 mmHg (35-45); ABG PH 7.44 pH Units (7.32-7.45); ABG PO2 65 mmHg (85-104); ABG TCO2 34 mEq/L (20-26)
--- NOTE | 2017-03-04 12:25 | Internal Med Progress Note ---
Date of Encounter: 03/04/17 Time of Encounter: 12:15 - Assessment and plan (1) Acute and chronic respiratory failure with hypoxia Current Visit: Yes Status: Acute Assessment and plan: Mayra Khalil is a 81-year-old female with past medical history COPD, A. fib, CHF , chronic respiratory failure, and lung cancer presented to [facility] on 03/02/2017 complaints of worsening shortness of breath and increased leg swelling. She was found to be in acute CHF exacerbation was admitted for IV diuresis. 1. Acute on chronic diastolic heart failure: 10/2016 TTE with EF 60%, moderate diastolic dysfunction and severely dilated left atrium. Chest x-ray cardiomegaly and pulmonary edema. BNP 900. Appears clinically overloaded with crackles and lower extremity edema. Home Lasix held and initially diuresed with IV Lasix with minimal improvement. Cardiology consulted and diuresis switched to IV Bumex, Imdur increased. Continue daily weights, strict I and O' s. At discharge patient should be switched to Bumex 2 mg PO daily with sodium restriction, daily morning postvoid weight and zaroxolyn 2.5mg po 2x/week prn weight gain/edema 2. COPD exacerbation: Has known underlying COPD. CXR without evidence of pneumonia. Clinically appears to be in COPD exacerbation with productive cough and diffuse wheezing. Continue IV steroids, Levaquin, DuoNeb nebs. BiPAP PRN however patient non-compliant 3. Atrial fibrillation with RVR: Known history A. fib. Not on anticoagulation as previously determined risk outweighs benefit. Initially rate controlled however now sustaining HRs in 120s. Cardizem gtt started. Evaluated by Cardiology who noted continuing cardizem drip and metoprolol (up titrate both to HR of <110 average). 4. Acute on chronic respiratory failure with hypoxia: Multifactorial with acute on chronic heart failure and COPD exacerbation. Continue treating underlying causes. Wean to home dose of 3 L O2 as able. Continue supplemental O2, strongly encourage BiPAP. Repeat ABGs pending 5. DANIEL: Cr 1.2 on admission and increased to 1.5; possibly due to cardiorenal syndrome along with use of IV Lasix. Hold on IV fluids she is overloaded. Avoid nephrotoxic agents as possible. Monitor renal function. 5. Hypernatremia: mild; Na 147. Hold on IV fluids with CHF exacerbation. Monitor repeat CMP 6. Compression fracture: Has known T6 compression fracture; previously evaluated by orthopedics who recommended medical management as she is not a candidate for vertebral plasty. Evaluated by palliative care on 03/03 and morphine increased. Continue judicious pain control 7. Lung cancer: per hx. planing on 4 treatments of palliative radiation. Follow up outpatient as previously planned 8. DVT prophylaxis: Heparin 9. Code status: DNRCC-A; DNI. Verified with patient and family on 03/03/17. Had long discussion with patient and family regarding respiratory status; both patient and family confirmed no CPR or intubation. (2) Lung cancer Current Visit: Yes Status: Acute Qualifiers: Laterality: unspecified laterality Qualified Code(s): C34.90 - Malignant neoplasm of unspecified part of unspecified bronchus or lung (3) Acute kidney injury superimposed on CKD Current Visit: Yes Status: Acute (4) Acute on chronic congestive heart failure Current Visit: Yes Status: Acute Qualifiers: Congestive heart failure type: diastolic Qualified Code(s): I50.33 - Acute on chronic diastolic (congestive) heart failure (5) Atrial fibrillation with RVR Current Visit: No Status: Acute (6) Chronic pain syndrome Current Visit: No Status: Chronic (7) DVT prophylaxis Current Visit: Yes Status: Acute (8) Hypernatremia Current Visit: No Status: Acute - Subjective Interval history: Seen and examined at bedside; sitting up in chair eating breakfast. Says she feels about the same, shortness of breath is no better or worse. Talked with her at length regarding the use of BiPAP. She says she does not like the mask and it makes her anxious but she is willing to try. No chest pain. Intermittent palpitations. Says leg swelling is getting worse. - Constitutional Vitals: Temp Pulse Resp BP Pulse Ox 97.8 F 112 16 117/76 93 03/04/17 11:30 03/04/17 11:30 03/04/17 11:30 03/04/17 11:30 03/04/17 11:57 General appearance: Present: cachectic, mild distress, A&O X 3 - Head Head exam: Present: atraumatic, normocephalic - Eye Eye exam: Present: PERRL, conjuntiva pink, sclera anicteric Pupils: Present: PERRL - Neck Neck exam general surgery: Present: supple, trachea midline. Absent: lymphadenopathy - Respiratory Respiratory exam: Present: CTAB, wheezes. Absent: accessory muscle use, rales, rhonchi Additional comments: Appears dyspneic - Cardiovascular Cardiovascular exam: Present: +S1, +S2, tachycardia. Absent: diastolic murmur, gallop, rubs, systolic murmur - GI/Abdominal GI/Abdominal exam: Present: normal bowel sounds, soft, no peritoneal signs. Absent: distended, tenderness - Extremities Exam Extremities exam: Present: pedal edema, warm, radial pulses palpable and symmetrical. Absent: calf tenderness, cyanotic Additional comments: Bilateral lower extremity edema - Neurological Exam Neurological exam: Present: CN II-XII intact, oriented X3, no focal deficits. Absent: pronater drift, facial droop, speech deficit - Skin Skin exam: Present: dry, intact Internal Medicine: Result - Labs CBC & Chem 7: 03/04/17 04:20 03/04/17 04:20 Labs: Short CBC 03/04/17 Range/Units 04:20 WBC 10.9 (4.3-11.1) K/mcL Hgb 9.2 L (11.5-15.4) g/dL Hct 31.5 L (35.3-44.9) % Plt Count 267 (140-400) K/mcL BMP 03/04/17 04:20 Sodium 146 H Potassium 4.4 Chloride 104 Carbon Dioxide 34 H BUN 47 H Creatinine 1.55 H Glucose 172 H Calcium 8.9 Liver Function 03/04/17 Range/Units 04:20 Total Bilirubin 0.2 (0.2-1.2) mg/dL AST 13 (5-34) Units/L ALT 24 (0-55) Units/L Alkaline Phosphatase 65 (38-126) Units/L Albumin 2.7 L (3.5-5.0) g/dL - ABG Interpretation ABG results: ABG ABG pH 7.44 pH Units (7.32-7.45) 03/04/17 11:45 ABG pCO2 48 mmHg (35-45) H 03/04/17 11:45 ABG pO2 65 mmHg (85-104) L 03/04/17 11:45 ABG O2 Saturation 93 % (95-98) L 03/04/17 11:45 - VTE Documentation of Mechanical Device: Intermittent pneumatic compression device Consult Discharge Plan - Plan Referrals: Lisbeth Salmon, VIDEO GAME SCRIPT WRITER [Primary Care Provider] -
[2017-03-04] MEDS: Bumetanide 1 MG/4 ML VIAL IVP SCH (16:23)
[2017-03-04] MEDS: *HR* LORazepam 1 MG TABLET PO SCH (20:30)
[2017-03-05] MEDS: *HR* Heparin 5,000 UNIT/ML VIAL SQ SCH ×4 (00:49→23:14)
[2017-03-05] MEDS: *HR* OxyCODONE Immed Rel 5 MG TABLET PO PRN ×3 (04:32→20:12)
[2017-03-05] MEDS: Ipratropium/Albuterol Neb 3 ML IH SCH ×4 (04:40→22:24)
[2017-03-05] MEDS: *HR* Morphine Sulfate SR (12 HR) 15 MG TABLET.ER PO SCH ×2 (06:20→18:51)
[2017-03-05] MEDS: MethylPREDNISolone 40 MG/ML VIAL IVP SCH ×2 (06:20→17:33)
[2017-03-05 07:36] LABS: Hemoglobin 9.9 g/dL (11.5-15.4); Mean Corpuscular HGB Conc 29.1 g/dL (31.6-35.5); Mean Corpuscular Hemoglobin 28.8 pg (28.0-33.3); Mean Corpuscular Volume 98.8 fL (83.0-100.0); Mean Platelet Volume 9.5 fL (9.4-12.4); Platelet Count 320 K/mcL (140-400); Red Blood Count 3.44 M/mcL (3.82-4.97); Red Cell Distribution Width 16.3 % (11.5-14.5)
[2017-03-05] MEDS: Tiotropium 18 MCG inhalation IH SCH (07:45)
[2017-03-05 08:10] LABS: Albumin 3.1 g/dL (3.5-5.0); Bilirubin,Total 0.3 mg/dL (0.2-1.2); Calcium 9.2 mg/dL (8.6-10.8); Globulin 3.2 g/dL (2.4-3.5); Potassium 4.6 mEq/L (3.5-4.5); Total Protein 6.3 g/dL (6.0-8.3)
[2017-03-05] MEDS: levoFLOXacin 750 MG TABLET PO SCH (08:34)
[2017-03-05] MEDS: Sennosides/Docusate Sodium TABLET PO SCH ×2 (08:34→19:59)
[2017-03-05] MEDS: Metoprolol XL (24 HR) Succ 50 MG TAB.ER.24H PO SCH (08:34)
[2017-03-05] MEDS: BuPROPion SR (12 HR) 100 MG TABLET PO SCH ×2 (08:34→19:57)
[2017-03-05] MEDS: Diltiazem CD (24hr) 180 MG CAPSULE PO SCH (08:34)
[2017-03-05] MEDS: *HR* LORazepam 0.5 MG TABLET PO SCH ×4 (08:35→20:06)
[2017-03-05] MEDS: Bumetanide 1 MG/4 ML VIAL IVP SCH ×2 (08:53→17:23)
--- NOTE | 2017-03-05 11:08 | Internal Med Progress Note ---
<Earl Vale - Last Filed: 03/05/17 11:32> Date of Encounter: 03/05/17 Time of Encounter: 10:00 - Assessment and plan (1) Acute and chronic respiratory failure with hypoxia Current Visit: Yes Status: Acute Assessment and plan: Acute on chronic respiratory failure with hypoxia, secondary to CHF and COPD, as well as lung cancer Moderate to severe wheezing noted on examination and audible without stethoscope BNP 900, diuresed with Bumex. Strict I's and O's, continue daily weight Oxygen saturation 95% on 3 L cannula (2) Acute on chronic congestive heart failure Current Visit: Yes Status: Acute Assessment and plan: Acute on chronic systolic congestive heart failure Cardiology is on board Switch diuresis to Bumex, start Imdur for preload reduction Qualifiers: Congestive heart failure type: diastolic Qualified Code(s): I50.33 - Acute on chronic diastolic (congestive) heart failure (3) COPD (chronic obstructive pulmonary disease) Current Visit: Yes Status: Acute Assessment and plan: Acute exacerbation of COPD superimposed on acute exacerbation of CHF IV methylprednisolone day 2 Levaquin day 2 Urine culture demonstrates Proteus mirabilis greater than 100,000 colony- forming units which is resistant to Levaquin Switch the patient to ceftriaxone for a total treatment of COPD exacerbation and UTI Qualifiers: COPD type: emphysema Emphysema type: panlobular Qualified Code(s): J43.1 - Panlobular emphysema (4) Lung cancer Current Visit: Yes Status: Acute Assessment and plan: History of lung nodules, on [facility] Unchanged at this time Qualifiers: Laterality: unspecified laterality Lung location: unspecified part of lung Qualified Code(s): C34.90 - Malignant neoplasm of unspecified part of unspecified bronchus or lung (5) Urinary tract infection Current Visit: Yes Status: Acute Assessment and plan: Urine culture demonstrates Proteus mirabilis >100,000 colony-forming units Sample is resistant to Levaquin Begin ceftriaxone for total treatment of COPD exacerbation and UTI Qualifiers: Urinary tract infection type: acute cystitis Hematuria presence: without hematuria Qualified Code(s): N30.00 - Acute cystitis without hematuria (6) Acute kidney injury superimposed on CKD Current Visit: Yes Status: Acute Assessment and plan: Serum creatinine 1.83, BUN and 57, GFR 27 Acute kidney injury is worsening, likely secondary to aggressive diuresis Fluid resuscitation difficult considering patient's severe CHF exacerbation. We will get a nephrology consultation in the morning (7) Atrial fibrillation Current Visit: Yes Status: Acute Assessment and plan: Atrial fibrillation with rapid ventricular response, chronic Heart rate has remained elevated Per cardiology heart rate will be difficult to control considering comorbid conditions Cardiology the patient is a poor candidate for anticoagulation, continue Plavix. Qualifiers: Atrial fibrillation type: paroxysmal Qualified Code(s): I48.0 - Paroxysmal atrial fibrillation (8) DVT prophylaxis Current Visit: Yes Status: Acute Assessment and plan: Subcutaneous heparin - Subjective Interval history: The patient is resting comfortably in chair at the time of examination. She says that she is still having trouble breathing, and she is concerned because she keeps any impact in the hospital. He has no acute complaints. - Constitutional Vitals: Temp Pulse Resp BP Pulse Ox 98.1 F 115 20 156/87 95 03/05/17 08:28 03/05/17 08:28 03/05/17 08:28 03/05/17 08:28 03/05/17 08:28 General appearance: Present: cachectic, mild distress, A&O X 3 Exam: - Head Head exam: Present: atraumatic, normocephalic - Eye Eye exam: Present: PERRL, conjuntiva pink, sclera anicteric Pupils: Present: PERRL - Neck Neck exam general surgery: Present: supple, trachea midline. Absent: lymphadenopathy - Respiratory Respiratory exam: Present: CTAB, wheezes. Absent: accessory muscle use, rales, rhonchi Additional comments: Appears dyspneic, wheezing and gurgling audible while speaking with the patient without stethoscope. Prolonged expiratory phase with expiratory - Cardiovascular Cardiovascular exam: Present: +S1, +S2, tachycardia. Absent: diastolic murmur, gallop, rubs, systolic murmur - GI/Abdominal GI/Abdominal exam: Present: normal bowel sounds, soft, no peritoneal signs. Absent: distended, tenderness - Extremities Exam Extremities exam: Present: pedal edema, warm, radial pulses palpable and symmetrical. Absent: calf tenderness, cyanotic Additional comments: Bilateral lower extremity edema - Neurological Exam Neurological exam: Present: CN II-XII intact, oriented X3, no focal deficits. Absent: pronater drift, facial droop, speech deficit - Skin Skin exam: Present: dry, intact Internal Medicine: Result - Labs CBC & Chem 7: 03/05/17 06:57 03/05/17 06:57 Labs: Short CBC 03/05/17 Range/Units 06:57 WBC 13.8 H (4.3-11.1) K/mcL Hgb 9.9 L (11.5-15.4) g/dL Hct 34.0 L (35.3-44.9) % Plt Count 320 (140-400) K/mcL BMP 03/05/17 06:57 Sodium 144 Potassium 4.6 H Chloride 103 Carbon Dioxide 31 H BUN 57 H Creatinine 1.83 H Glucose 131 H Calcium 9.2 Liver Function 03/05/17 Range/Units 06:57 Total Bilirubin 0.3 (0.2-1.2) mg/dL AST 15 (5-34) Units/L ALT 24 (0-55) Units/L Alkaline Phosphatase 70 (38-126) Units/L Albumin 3.1 L (3.5-5.0) g/dL - ABG Interpretation ABG results: ABG ABG pH 7.44 pH Units (7.32-7.45) 03/04/17 11:45 ABG pCO2 48 mmHg (35-45) H 03/04/17 11:45 ABG pO2 65 mmHg (85-104) L 03/04/17 11:45 ABG O2 Saturation 93 % (95-98) L 03/04/17 11:45 - Impressions Impressions Chest X-Ray 03/04/17 18:14 IMPRESSION: Improving CHF/pulmonary edema. D/ / Regan Olsen MD / Regan Olsen MD Interpreting Provider: Regan Olsen MD - VTE Documentation of Mechanical Device: Intermittent pneumatic compression device Consult Discharge Plan - Plan Referrals: Lisbeth Salmon CNP [Primary Care Provider] - <Memo Bah - Last Filed: 03/05/17 13:46> Date of Encounter: 03/05/17 - Assessment and plan (1) Acute and chronic respiratory failure with hypoxia Current Visit: Yes Status: Acute (2) Acute on chronic congestive heart failure Current Visit: Yes Status: Acute Qualifiers: Congestive heart failure type: diastolic Qualified Code(s): I50.33 - Acute on chronic diastolic (congestive) heart failure (3) COPD (chronic obstructive pulmonary disease) Current Visit: Yes Status: Acute Qualifiers: COPD type: emphysema Emphysema type: panlobular Qualified Code(s): J43.1 - Panlobular emphysema (4) Atrial fibrillation Current Visit: Yes Status: Acute Qualifiers: Atrial fibrillation type: paroxysmal Qualified Code(s): I48.0 - Paroxysmal atrial fibrillation (5) Acute kidney injury superimposed on CKD Current Visit: Yes Status: Acute (6) Urinary tract infection Current Visit: Yes Status: Acute Qualifiers: Urinary tract infection type: acute cystitis Hematuria presence: without hematuria Qualified Code(s): N30.00 - Acute cystitis without hematuria (7) CKD (chronic kidney disease) Current Visit: Yes Status: Chronic Qualifiers: Chronic kidney disease stage: stage 3 (moderate) Qualified Code(s): N18.3 - Chronic kidney disease, stage 3 (moderate) - Constitutional Vitals: Temp Pulse Resp BP Pulse Ox 98.1 F 92 18 135/85 95 03/05/17 08:28 03/05/17 13:02 03/05/17 11:09 03/05/17 13:02 03/05/17 11:10 Internal Medicine: Result - Labs CBC & Chem 7: 03/05/17 06:57 03/05/17 06:57 Labs: Short CBC 03/05/17 Range/Units 06:57 WBC 13.8 H (4.3-11.1) K/mcL Hgb 9.9 L (11.5-15.4) g/dL Hct 34.0 L (35.3-44.9) % Plt Count 320 (140-400) K/mcL BMP 03/05/17 06:57 Sodium 144 Potassium 4.6 H Chloride 103 Carbon Dioxide 31 H BUN 57 H Creatinine 1.83 H Glucose 131 H Calcium 9.2 Liver Function 03/05/17 Range/Units 06:57 Total Bilirubin 0.3 (0.2-1.2) mg/dL AST 15 (5-34) Units/L ALT 24 (0-55) Units/L Alkaline Phosphatase 70 (38-126) Units/L Albumin 3.1 L (3.5-5.0) g/dL - ABG Interpretation ABG results: ABG ABG pH 7.44 pH Units (7.32-7.45) 03/04/17 11:45 ABG pCO2 48 mmHg (35-45) H 03/04/17 11:45 ABG pO2 65 mmHg (85-104) L 03/04/17 11:45 ABG O2 Saturation 93 % (95-98) L 03/04/17 11:45 - Impressions Impressions Chest X-Ray 03/04/17 18:14 IMPRESSION: Improving CHF/pulmonary edema. D/ / Regan Olsen MD / Regan Olsen MD Interpreting Provider: Regan Olsen MD - Attending Attestation I examined this patient and my medical decision-making was reviewed with the Resident Physician on 03/05/17. I agree with the documented findings, disposition and treatment plan as described except to the extent set forth below. Ms Khalil is currently admitted for acute exac CHF and COPD. She remains moderate to high risk due to potential for worsening respiratory and renal status. Ms Khalil is sitting up in her chair. She is moderately dyspneic. No fever or chills. Not much appetite. BP has been somewhat high today. Exam Alert. Mod distress due to chest congestion. Mucus membranes dry Heart distant Lungs with diffuse rhonchi and wheeze Abd soft Edema present I/P 1. hypoxia 2. CHF 3. COPD Further diagnoses and plan as above
[2017-03-05] MEDS: Budesonide/Formoterol 160/4.5 MDI IH SCH ×2 (11:09→22:30)
[2017-03-05] MEDS: Isosorbide MONOnitrate (24 HR) 60 MG TAB.ER.24H PO SCH (11:24)
[2017-03-05] MEDS: hydrALAZINE 25 MG TABLET PO SCH ×3 (11:24→23:14)
[2017-03-05] MEDS ORDERED: *HR* Digoxin 0.5 MG/2 ML AMPUL IVP ONE (13:53)
[2017-03-05] MEDS ORDERED: *HR* LORazepam 2 MG/ML VIAL IVP ONE (15:58)
[2017-03-05 16:26] LABS: ABG Base Excess 5 mEq/L (-2 to 3); ABG HCO3 32 mEq/L (21-27); ABG Oxygen Saturation 95 % (95-98); ABG PCO2 62 mmHg (35-45); ABG PH 7.33 pH Units (7.32-7.45); ABG PO2 82 mmHg (85-104); ABG TCO2 34 mEq/L (20-26)
[2017-03-05] MEDS ORDERED: *HR* Metoprolol 5 MG/5 ML VIAL IVP PRN (18:39)
--- NOTE | 2017-03-05 19:03 | Cardiology Progress Note ---
Date of Encounter: 03/05/17 Time of Encounter: 14:00 Assessment and Plan (1) Atrial fibrillation Current Visit: Yes Status: Acute HR will be difficult to control in setting of acute COPD/CHF exacerbation. Continue rate control with metoprolol and cardizem, up titrate both to HR of < 110 average. Patient is not a candidate for anticoagulation given her falls, anemia and lung cancer. Continue plavix (aspirin not advised per GI). Digoxin IV 250mcg x 1 given today to assist with rate control. Qualifiers: Atrial fibrillation type: paroxysmal Qualified Code(s): I48.0 - Paroxysmal atrial fibrillation (2) Acute on chronic congestive heart failure Current Visit: Yes Status: Acute Continue diuresis but switch to IV bumex Advise that when she is discharged, she be switched to BUMEX 2mg po QD with sodium restriction, daily morning postvoid weight and zaroxolyn 2.5mg po 2x/week prn weight gain/edema to reduce risk of hospitalization. Imdur will be increased to 120mg for preload reduction Qualifiers: Congestive heart failure type: diastolic Qualified Code(s): I50.33 - Acute on chronic diastolic (congestive) heart failure (3) COPD exacerbation Current Visit: Yes Status: Acute Continue treatment per primary team Discussion w patient/family: The assessment and plan as outlined above was discussed with the patient and/or family members who expressed understanding and agreement. All questions were answered. Thank you for involving us in the care of your patient. Please call with any questions. Subjective Principal diagnosis: Atrial fibrillation Interval history: Patient felt well overnight without chest/jaw/arm discomfort. Her dyspnea has improved and notes her back pain as well as she is not in the chair. Objective Vital Signs, Last 4 Hours Temp Pulse Resp BP Pulse Ox 03/05/17 18:53 97.9 F 106 24 145/77 95 03/05/17 17:43 97 156/99 03/05/17 16:02 18 148/104 95 03/05/17 16:00 97.6 F 88 18 122/85 93 General: Conversant, No Apparent Distress HEENT: Atraumatic, Mucus Membranes Moist Neck: No JVD, Normal carotid pulses Cardiac: Normal S1 and S2, No Murmur Lungs: Normal Breath Sounds Neuro: Alert and responsive Abdomen: Soft Skin: No rashes noted on visualized skin Musculoskeletal: No Chest Wall Tenderness Extremities: No Edema Results 03/05/17 06:57 03/05/17 06:57 Lab Results 03/05/17 03/05/17 03/05/17 06:57 06:57 06:57 WBC 13.8 H Hgb 9.9 L Hct 34.0 L Plt Count 320 Sodium 144 Potassium 4.6 H Chloride 103 Carbon Dioxide 31 H BUN 57 H Creatinine 1.83 H Glucose 131 H Calcium 9.2 Total Bilirubin 0.3 AST 15 ALT 24 Alkaline Phosphatase 70 B-Natriuretic Peptide 943 H - VTE Documentation of Mechanical Device: Intermittent pneumatic compression device Consult Discharge Plan - Plan Referrals: Lisbeth Salmon, GROUP RESERVATIONS COORDINATOR [Primary Care Provider] -
[2017-03-05] MEDS: *HR* LORazepam 1 MG TABLET PO SCH (19:54)
[2017-03-06 04:11] LABS: Hematocrit 31.4 % (35.3-44.9); Hemoglobin 9.1 g/dL (11.5-15.4); Mean Corpuscular Hemoglobin 28.3 pg (28.0-33.3); Mean Corpuscular Volume 97.8 fL (83.0-100.0); Mean Platelet Volume 9.5 fL (9.4-12.4); Platelet Count 281 K/mcL (140-400); Red Blood Count 3.21 M/mcL (3.82-4.97); Red Cell Distribution Width 16.1 % (11.5-14.5)
[2017-03-06 04:13] LABS: Basophils % 0.2 %; Hematocrit 31.3 % (35.3-44.9); Hemoglobin 9.3 g/dL (11.5-15.4); Immature Granulocytes % 1.7 % (0-4); Lymphocytes # 0.6 K/mcL (0.6-4.6); Lymphocytes % 4.4 %; Mean Corpuscular HGB Conc 29.7 g/dL (31.6-35.5); Mean Corpuscular Hemoglobin 29.2 pg (28.0-33.3); Mean Corpuscular Volume 98.1 fL (83.0-100.0); Mean Platelet Volume 9.8 fL (9.4-12.4); Monocytes # 0.4 K/mcL (0.0-1.3); Neutrophils # 12.5 K/mcL (1.6-8.9); Nucleated Red Blood Cells 0.2 /100 WBC (0); Platelet Count 283 K/mcL (140-400); Red Blood Count 3.19 M/mcL (3.82-4.97); Red Cell Distribution Width 15.9 % (11.5-14.5); Segmented Neutrophils % 90.7 %
[2017-03-06 04:25] LABS: Albumin 2.8 g/dL (3.5-5.0); Bilirubin,Total 0.2 mg/dL (0.2-1.2); Calcium 8.8 mg/dL (8.6-10.8); Globulin 2.9 g/dL (2.4-3.5); Potassium 4.8 mEq/L (3.5-4.5); Total Protein 5.7 g/dL (6.0-8.3)
[2017-03-06] MEDS: Ipratropium/Albuterol Neb 3 ML IH SCH ×4 (05:06→22:01)
[2017-03-06] MEDS: MethylPREDNISolone 40 MG/ML VIAL IVP SCH (05:32)
[2017-03-06] MEDS: *HR* Morphine Sulfate SR (12 HR) 15 MG TABLET.ER PO SCH ×2 (05:32→18:21)
--- NOTE | 2017-03-06 08:57 | Internal Med Progress Note ---
<Arin Vazquez - Last Filed: 03/06/17 08:55> Date of Encounter: 03/06/17 Time of Encounter: 08:55 - Assessment and plan (1) Acute and chronic respiratory failure with hypoxia Current Visit: Yes Status: Acute Assessment and plan: Acute on chronic respiratory failure with hypoxia, secondary to CHF and COPD, as well as lung cancer BNP 955 on admission. Bumex 2 mg daily. 1.5 L fluid restriction, strict I's and O's, continue daily weight --daily weights showing increase of 1.8 kg since admission (2) Acute on chronic congestive heart failure Current Visit: Yes Status: Acute Assessment and plan: Acute on chronic diastolic congestive heart failure --echo 11/25/16 LVEF 60%, moderate diastolic dysfunction Cardiology on board, appreciate recommendations 03/05 Switch diuresis to Bumex, start Imdur for preload reduction Qualifiers: Congestive heart failure type: diastolic Qualified Code(s): I50.33 - Acute on chronic diastolic (congestive) heart failure (3) COPD (chronic obstructive pulmonary disease) Current Visit: Yes Status: Acute Assessment and plan: Acute exacerbation of COPD superimposed on acute exacerbation of CHF methylprednisolone day 3 03/05 Urine culture demonstrates Proteus mirabilis greater than 100,000 colony- forming units which is resistant to Levaquin --Switch the patient to ceftriaxone for a total treatment of COPD exacerbation and UTI Rocephin day 2 Qualifiers: COPD type: emphysema Emphysema type: panlobular Qualified Code(s): J43.1 - Panlobular emphysema (4) Atrial fibrillation Current Visit: Yes Status: Chronic Assessment and plan: Atrial fibrillation with rapid ventricular response, chronic Heart rate has remained elevated Per cardiology, heart rate will be difficult to control considering comorbid conditions and the patient is a poor candidate for anticoagulation: continue Plavix. Qualifiers: Atrial fibrillation type: paroxysmal Qualified Code(s): I48.0 - Paroxysmal atrial fibrillation (5) Urinary tract infection Current Visit: Yes Status: Acute Assessment and plan: Urine culture demonstrates Proteus mirabilis >100,000 colony-forming units Sample is resistant to Levaquin 03/05 Begin ceftriaxone for total treatment of COPD exacerbation and UTI Rocephin day 2 Qualifiers: Urinary tract infection type: acute cystitis Hematuria presence: without hematuria Qualified Code(s): N30.00 - Acute cystitis without hematuria (6) Acute kidney injury superimposed on CKD Current Visit: Yes Status: Acute Assessment and plan: Serum creatinine 2.11, BUN and 68, GFR 23 Acute kidney injury is worsening, likely secondary to aggressive diuresis Fluid resuscitation difficult considering patient's severe CHF exacerbation. Nephrology consulted, appreciate recommendations (7) Lung cancer Current Visit: Yes Status: Acute Assessment and plan: History of lung nodules Plan to consult Dr. Bustamante of radiation oncology tomorrow. (His partner is insurance healthcare consultant today) Qualifiers: Laterality: unspecified laterality Lung location: unspecified part of lung Qualified Code(s): C34.90 - Malignant neoplasm of unspecified part of unspecified bronchus or lung - Subjective Interval history: The patient states that her back chronically hurts her. She is tired of being in the hospital. - Constitutional Vitals: Temp Pulse Resp BP Pulse Ox 97.7 F 122 20 123/80 94 03/06/17 08:01 03/06/17 08:01 03/06/17 08:01 03/06/17 08:01 03/06/17 08:01 General appearance: Present: cachectic, mild distress - Head Head exam: Present: atraumatic, normocephalic - Eye Eye exam: Present: PERRL, conjuntiva pink, sclera anicteric Pupils: Present: PERRL - Neck Neck exam general surgery: Present: trachea midline - Respiratory Respiratory exam: Present: decreased breath sounds, wheezes - Cardiovascular Cardiovascular exam: Present: irregular rhythm, +S1, +S2, tachycardia - GI/Abdominal GI/Abdominal exam: Present: normal bowel sounds, soft, no peritoneal signs. Absent: distended, tenderness - Extremities Exam Extremities exam: Present: pedal edema. Absent: normal inspection Additional comments: evidence of chronic venous stasis, right lower leg wrapped due weeping - Neurological Exam Neurological exam: Absent: facial droop, speech deficit Additional comments: confused this morning by questioning, states "I dont know" in response to several questions - Skin Skin exam: Present: warm. Absent: intact, normal color Internal Medicine: Result - Labs CBC & Chem 7: 03/06/17 03:03 03/06/17 03:03 Labs: Short CBC 03/06/17 03/06/17 Range/Units 03:03 03:03 WBC 13.4 H 13.8 H (4.3-11.1) K/mcL Hgb 9.1 L 9.3 L (11.5-15.4) g/dL Hct 31.4 L 31.3 L (35.3-44.9) % Plt Count 281 283 (140-400) K/mcL Neutrophils # 12.5 H (1.6-8.9) K/mcL BMP 03/06/17 03:03 Sodium 142 Potassium 4.8 H Chloride 102 Carbon Dioxide 31 H BUN 68 H Creatinine 2.11 H Glucose 131 H Calcium 8.8 Liver Function 03/06/17 Range/Units 03:03 Total Bilirubin 0.2 (0.2-1.2) mg/dL AST 11 (5-34) Units/L ALT 21 (0-55) Units/L Alkaline Phosphatase 63 (38-126) Units/L Albumin 2.8 L (3.5-5.0) g/dL - ABG Interpretation ABG results: ABG ABG pH 7.33 pH Units (7.32-7.45) 03/05/17 16:23 ABG pCO2 62 mmHg (35-45) H 03/05/17 16:23 ABG pO2 82 mmHg (85-104) L 03/05/17 16:23 ABG O2 Saturation 95 % (95-98) 03/05/17 16:23 - VTE Documentation of Mechanical Device: Intermittent pneumatic compression device Consult Discharge Plan - Plan Referrals: Lisbeth Salmon, MEMBER SERVICES COORDINATOR [Primary Care Provider] - 03/15/17 10:00 am <Memo Bah - Last Filed: 03/06/17 17:39> Date of Encounter: 03/06/17 - Assessment and plan (1) Acute and chronic respiratory failure with hypoxia Current Visit: Yes Status: Acute (2) Acute on chronic congestive heart failure Current Visit: Yes Status: Acute Qualifiers: Congestive heart failure type: diastolic Qualified Code(s): I50.33 - Acute on chronic diastolic (congestive) heart failure (3) COPD (chronic obstructive pulmonary disease) Current Visit: Yes Status: Acute Qualifiers: COPD type: emphysema Emphysema type: panlobular Qualified Code(s): J43.1 - Panlobular emphysema (4) Atrial fibrillation Current Visit: Yes Status: Chronic Qualifiers: Atrial fibrillation type: paroxysmal Qualified Code(s): I48.0 - Paroxysmal atrial fibrillation (5) Acute kidney injury superimposed on CKD Current Visit: Yes Status: Acute (6) Urinary tract infection Current Visit: Yes Status: Acute Qualifiers: Urinary tract infection type: acute cystitis Hematuria presence: without hematuria Qualified Code(s): N30.00 - Acute cystitis without hematuria (7) CKD (chronic kidney disease) Current Visit: Yes Status: Chronic Qualifiers: Chronic kidney disease stage: stage 3 (moderate) Qualified Code(s): N18.3 - Chronic kidney disease, stage 3 (moderate) - Constitutional Vitals: Temp Pulse Resp BP Pulse Ox 97.5 F L 104 18 133/74 92 03/06/17 15:55 03/06/17 15:55 03/06/17 16:05 03/06/17 15:55 03/06/17 16:05 Internal Medicine: Result - Labs CBC & Chem 7: 03/06/17 03:03 03/06/17 03:03 Labs: Short CBC 03/06/17 03/06/17 Range/Units 03:03 03:03 WBC 13.4 H 13.8 H (4.3-11.1) K/mcL Hgb 9.1 L 9.3 L (11.5-15.4) g/dL Hct 31.4 L 31.3 L (35.3-44.9) % Plt Count 281 283 (140-400) K/mcL Neutrophils # 12.5 H (1.6-8.9) K/mcL BMP 03/06/17 03:03 Sodium 142 Potassium 4.8 H Chloride 102 Carbon Dioxide 31 H BUN 68 H Creatinine 2.11 H Glucose 131 H Calcium 8.8 Liver Function 03/06/17 Range/Units 03:03 Total Bilirubin 0.2 (0.2-1.2) mg/dL AST 11 (5-34) Units/L ALT 21 (0-55) Units/L Alkaline Phosphatase 63 (38-126) Units/L Albumin 2.8 L (3.5-5.0) g/dL - ABG Interpretation ABG results: ABG ABG pH 7.33 pH Units (7.32-7.45) 03/05/17 16:23 ABG pCO2 62 mmHg (35-45) H 03/05/17 16:23 ABG pO2 82 mmHg (85-104) L 03/05/17 16:23 ABG O2 Saturation 95 % (95-98) 03/05/17 16:23 - Attending Attestation I examined this patient and my medical decision-making was reviewed with the Resident Physician on 03/06/17. I agree with the documented findings, disposition and treatment plan as described except to the extent set forth below. Ms Khalil is currently admitted for resp failure, CHF and DANIEL. She remains moderate to high risk due to potential for worsening respiratory status. Ms Khalil is having episodes of "smothering" today. Gets very panicked. No fever or chills. Difficult to diurese. Family at bedside. To speak with Dr. Bustamante tomorrow. Exam Alert. Mod resp distress Heart tachy and irreg Lungs diminished Abd soft I/P 1. Resp failure 2. CHF 3 DANIEL Further diagnoses and plan as above. Discussion with Dr Bustamante tomorrow.
--- NOTE | 2017-03-06 09:04 | Cardiology Progress Note ---
Date of Encounter: 03/06/17 Time of Encounter: 08:30 Assessment and Plan (1) Atrial fibrillation Current Visit: Yes Status: Chronic Per cardiology: -HR will be difficult to control in setting of acute COPD/CHF exacerbation. -Continue rate control with metoprolol and cardizem, up titrate both to HR of < 110 average. -Patient is not a candidate for anticoagulation given her falls, anemia and lung cancer. -Continue plavix (aspirin not advised per GI). -Average HR overnight, 103, atrial fibrillation. -Currently on toprol 200mg daily and cardizem CD 360mg daily. -BP 130s systolic. -Will change toprol to 150mg BID. -Will continue to monitor. Qualifiers: Atrial fibrillation type: paroxysmal Qualified Code(s): I48.0 - Paroxysmal atrial fibrillation (2) Acute on chronic congestive heart failure Current Visit: Yes Status: Acute Per cardiology: -Continue diuresis. -Net negative 2468ml. -States breathing is ok today. -On home dose of O2 at 3LPM per nasal cannula. -On bumex 2mg IV BID. -1+ bilateral pitting edema noted. -Weight today 82.5kg, weight 02/28/17 81.5kg. -Creatinine climbing today 2.11. -Will switch bumex to 2mg po daily. -Will continue to monitor. Qualifiers: Congestive heart failure type: diastolic Qualified Code(s): I50.33 - Acute on chronic diastolic (congestive) heart failure (3) COPD exacerbation Current Visit: Yes Status: Acute Per cardiology: -Continue treatment per primary team Discussion w patient/family: The assessment and plan as outlined above was discussed with the patient who expressed understanding and agreement. All questions were answered. Thank you for involving us in the care of your patient. Please call with any questions. Discussed and reviewed with . Subjective Principal diagnosis: Atrial fibrillation Interval history: Patient states she feels ok today. Patient states breathing is "ok." Patient denies palpitations or fluttering. Patient denies chest pain. Objective Vital Signs, Last 4 Hours Temp Pulse Resp BP Pulse Ox 03/06/17 08:01 97.7 F 122 20 123/80 94 03/06/17 05:06 16 99 General: Conversant, Other (Conversational dyspnea noted. ) HEENT: Atraumatic, Normocephaly, Mucus Membranes Moist Neck: No JVD, Normal carotid pulses Cardiac: Other (Irregularly irregular) Lungs: Other (Lung sounds diminished throughout) Neuro: Alert and responsive, No focal deficits noted Abdomen: Soft, Non-Tender Skin: No rashes noted on visualized skin Musculoskeletal: No Chest Wall Tenderness Extremities: No Clubbing, No Cyanosis, Normal Pulses, Other (1+ bilateral lower extremity pitting edema. ) Results 03/06/17 03:03 03/06/17 03:03 Lab Results Active Medications Albuterol/Ipratropium (Duoneb) 3 ml IH QIDR KAM[facility]AN Stop: 09/01/17 23:01 Last Admin: 03/06/17 05:06 Dose: 3 ml Bisacodyl (Dulcolax) 10 mg RC HS PRN PRN Reason: Constipation Stop: 09/02/17 11:28 Last Admin: 03/04/17 16:25 Dose: 10 mg Budesonide/Formoterol Fumarate (Symbicort) 2 puff IH BIDR KAMRAN PRN Reason: Protocol Stop: 09/01/17 22:01 Last Admin: 03/05/17 22:30 Dose: Not Given Bumetanide (Bumex) 2 mg PO DAILY [facility] Stop: 09/05/17 09:01 Bupropion HCl (Wellbutrin Sr) 200 mg PO BID [facility] Stop: 09/01/17 21:01 Last Admin: 03/05/17 19:57 Dose: 200 mg Clopidogrel Bisulfate (Plavix) 75 mg PO DAILY [facility] Stop: 09/02/17 09:01 Last Admin: 03/05/17 08:34 Dose: 75 mg Diltiazem HCl (Cardizem Cd) 360 mg PO DAILY [facility] Stop: 09/02/17 09:01 Last Admin: 03/05/17 08:34 Dose: 360 mg Docusate Sodium (Colace) 100 mg PO BID PRN PRN Reason: Constipation Stop: 09/01/17 18:53 Last Admin: 03/02/17 20:39 Dose: 100 mg Donepezil HCl (Aricept) 10 mg PO HS [facility] Stop: 09/01/17 21:01 Last Admin: 03/05/17 19:56 Dose: 10 mg Ferrous Sulfate (Ferrous Sulfate) 325 mg PO DAILY [facility] Stop: 09/02/17 09:01 Last Admin: 03/05/17 08:34 Dose: 325 mg Guaifenesin (Mucinex) 600 mg PO BID [facility] Stop: 09/01/17 21:01 Last Admin: 03/05/17 20:06 Dose: 600 mg Heparin Sodium (Porcine) (Heparin) 5,000 unit SQ Q8HR [facility] Stop: 09/02/17 00:01 Last Admin: 03/05/17 23:14 Dose: 5,000 unit Hydralazine HCl (Hydralazine) 50 mg PO TID [facility] Stop: 09/01/17 21:01 Last Admin: 03/05/17 23:14 Dose: 50 mg Ceftriaxone Sodium 1,000 mg/ (Dextrose) 100 mls @ 200 mls/hr IVPB Q24H [facility] Stop: 09/04/17 10:01 Last Infusion: 03/05/17 12:00 Dose: Infused Isosorbide Mononitrate (Imdur) 120 mg PO DAILY [facility] Stop: 09/03/17 11:28 Last Admin: 03/05/17 11:24 Dose: 120 mg Lorazepam (Ativan) 0.5 mg PO QID [facility] Stop: 09/01/17 21:01 Last Admin: 03/05/17 20:06 Dose: Not Given Lorazepam (Ativan) 1 mg PO HS [facility] Stop: 09/01/17 21:01 Last Admin: 03/05/17 19:54 Dose: 1 mg Methylprednisolone (Solu-Medrol) 40 mg IVP Q12HR [facility] Stop: 09/02/17 06:01 Last Admin: 03/06/17 05:32 Dose: 40 mg Metoprolol Succinate (Toprol Xl) 150 mg PO BID [facility] Stop: 09/05/17 09:01 Metoprolol Tartrate (Lopressor) 5 mg IVP Q6HR PRN PRN Reason: tachycardia Stop: 09/04/17 18:40 Last Admin: 03/05/17 20:06 Dose: 5 mg Morphine Sulfate (Ms Contin) 15 mg PO Q12HR [facility] Stop: 09/02/17 11:31 Last Admin: 03/06/17 05:32 Dose: 15 mg Morphine Sulfate (Roxanol) 10 mg PO Q4HR PRN PRN Reason: distress Stop: 09/04/17 16:00 Naloxone HCl (Narcan) 0.4 mg IVP Q2MIN PRN PRN Reason: Opioid Reversal Stop: 09/01/17 18:53 Nitroglycerin (Nitroglycerin) 0.4 mg SL Q5M PRN PRN Reason: Chest Pain Stop: 09/01/17 18:56 Omeprazole (Prilosec) 20 mg PO DAILY [facility] Stop: 09/02/17 09:01 Last Admin: 03/05/17 08:34 Dose: 20 mg Oxycodone HCl (Roxicodone) 10 mg PO Q4H PRN PRN Reason: Moderate Pain Last Admin: 03/05/17 20:12 Dose: 10 mg Polyethylene Glycol (Miralax) 17 gm PO 2100 [facility] Stop: 09/04/17 09:01 Last Admin: 03/05/17 20:01 Dose: 17 gm Senna/Docusate Sodium (Senna Plus) 2 each PO BID [facility]AN PRN Reason: Protocol Stop: 09/02/17 21:01 Last Admin: 03/05/17 19:59 Dose: 2 each Sertraline HCl (Zoloft) 100 mg PO DAILY [facility] Stop: 09/02/17 09:01 Last Admin: 03/05/17 08:33 Dose: 100 mg Simvastatin (Zocor) 10 mg PO HS [facility]AN PRN Reason: Protocol Stop: 09/01/17 21:01 Last Admin: 03/05/17 19:58 Dose: 10 mg Tiotropium [place] (Spiriva) 18 mcg IH DAILY [facility] Stop: 09/04/17 09:01 Last Admin: 03/05/17 07:45 Dose: Not Given Laboratory Tests 03/05/17 03/06/17 03/06/17 06:57 03:03 03:03 WBC 13.4 H Hgb 9.1 L Creatinine 1.83 H 2.11 H - Imaging and Cardiology Chest Xray: report reviewed Echo: report reviewed - EKG Interpretation EKG results cardiology: personally reviewed (ECG with atrial fibrillation, HR 97.), other (Telemetry reviewed with average HR 103, atrial fibrillation. Longest pause 1.4 seconds.) - VTE Documentation of Mechanical Device: Intermittent pneumatic compression device Consult Discharge Plan - Plan Referrals: Lisbeth Salmon, [facility]TER [Primary Care Provider] - 03/15/17 10:00 am
[2017-03-06] MEDS: *HR* LORazepam 0.5 MG TABLET PO SCH (09:14)
[2017-03-06] MEDS: *HR* Heparin 5,000 UNIT/ML VIAL SQ SCH ×2 (09:32→15:26)
[2017-03-06] MEDS: Metoprolol XL (24 HR) Succ 50 MG TAB.ER.24H PO SCH ×2 (09:34→21:42)
[2017-03-06] MEDS: Isosorbide MONOnitrate (24 HR) 60 MG TAB.ER.24H PO SCH (09:34)
[2017-03-06] MEDS: hydrALAZINE 25 MG TABLET PO SCH ×3 (09:35→21:43)
[2017-03-06] MEDS: Bumetanide 1 MG TABLET PO SCH (09:35)
[2017-03-06] MEDS: Sennosides/Docusate Sodium TABLET PO SCH ×2 (09:37→21:41)
[2017-03-06] MEDS: BuPROPion SR (12 HR) 100 MG TABLET PO SCH ×2 (09:38→21:41)
[2017-03-06] MEDS: Diltiazem CD (24hr) 180 MG CAPSULE PO SCH (09:38)
--- NOTE | 2017-03-06 09:45 | Palliative Progress Note ---
Date of Encounter: 03/06/17 Time of Encounter: 09:40 - Assessment and plan (1) Dyspnea Current Visit: No Status: Acute Assessment and plan: Cardiology has been adjusting medications. BuN/Cr trending up. Utilizing bipap PRN. Qualifiers: Dyspnea type: unspecified Qualified Code(s): R06.00 - Dyspnea, unspecified (2) Generalized pain Current Visit: Yes Status: Acute Assessment and plan: She does have some increased confusion, however, overall states her pain is better. Continue MS Contin and discuss with family when they arrive. (3) Constipation Current Visit: Yes Status: Acute Assessment and plan: + BM this weekend. Continue Senna Qualifiers: Constipation type: other constipation type Qualified Code(s): K59.09 - Other constipation (4) Anxiety Current Visit: No Status: Chronic Assessment and plan: GrandDaughter has expressed concern r/t amount of Lorazepam she is receiving. However, she is on the same dose as at home. Will D/W Daughter when she arrives. (5) Counseling regarding advanced care planning and goals of care Current Visit: Yes Status: Acute Assessment and plan: Growing concern that patient will not be able to tolerate radiation, and with her heart failure, unsure if she would benefit. Dr. Bah has reached out to Dr. Bustamante, who will be back tomorrow to review clinical status and discuss with family. If they do not proceed with radiation, can speak with family regarding transition of [facility] to their hospice program. (6) Acute CHF (congestive heart failure) Current Visit: No Status: Acute Qualifiers: Congestive heart failure type: systolic Qualified Code(s): I50.21 - Acute systolic (congestive) heart failure - Time Spent With Patient Total time spent is greater than 50% in coordination of care (as documented) at patient's floor/unit and/or counseling patient: 25 - 35 minutes - Subjective Interval history: Events of weekend reviewed. She has continued with shortness of breath, afib - Cardiology has been following closely and adjusting medications. She is pleasantly confused. Currently up in chair, Appears shaky and anxious. States breathing "ok for now". Rates back pain a 4/10. Granddaughter at bedside. - Constitutional Vitals: Abnormal lab results WBC 13.8 K/mcL (4.3-11.1) H 03/06/17 03:03 RBC 3.19 M/mcL (3.82-4.97) L 03/06/17 03:03 Hgb 9.3 g/dL (11.5-15.4) L 03/06/17 03:03 Hct 31.3 % (35.3-44.9) L 03/06/17 03:03 MCHC 29.7 g/dL (31.6-35.5) L 03/06/17 03:03 RDW 15.9 % (11.5-14.5) H 03/06/17 03:03 Neutrophils # 12.5 K/mcL (1.6-8.9) H 03/06/17 03:03 Nucleated RBCs/100 WBC 0.2 /100 WBC (0) H 03/06/17 03:03 ABG pCO2 62 mmHg (35-45) H 03/05/17 16:23 ABG pO2 82 mmHg (85-104) L 03/05/17 16:23 ABG HCO3 32 mEq/L (21-27) H 03/05/17 16:23 ABG Total CO2 34 mEq/L (20-26) H 03/05/17 16:23 ABG Base Excess 5 mEq/L (-2 to 3) H 03/05/17 16:23 Potassium 4.8 mEq/L (3.5-4.5) H 03/06/17 03:03 Carbon Dioxide 31 mEq/L (19-29) H 03/06/17 03:03 BUN 68 mg/dL (7-20) H 03/06/17 03:03 Creatinine 2.11 mg/dL (0.57-1.11) H 03/06/17 03:03 Est GFR ( Amer) 27 (> 60) L 03/06/17 03:03 Est GFR (Non-Af Amer) 23 (> 60) L 03/06/17 03:03 BUN/Creatinine Ratio 32 (6-26) H 03/06/17 03:03 Glucose 131 mg/dL (70-99) H 03/06/17 03:03 Calculated Osmolality 316 (280-300) H 03/06/17 03:03 B-Natriuretic Peptide 943 pg/mL (0-100) H 03/05/17 06:57 Serum Total Protein 5.7 g/dL (6.0-8.3) L 03/06/17 03:03 Albumin 2.8 g/dL (3.5-5.0) L 03/06/17 03:03 Albumin/Globulin Ratio 1.0 (1.1-2.2) L 03/06/17 03:03 Ur Leukocyte Esterase Moderate (Negative) H 03/03/17 11:41 Urine Microscopic RBC 3-5 per hpf (0-3) H 03/03/17 11:41 Urine Microscopic WBC 15-30 per hpf (0-3) H 03/03/17 11:41 Ur Squamous Epith Cells Many per lpf (None-Few) H 03/03/17 11:41 Ur Culture Indicated? YES (NO) A 03/03/17 11:41 General appearance: Present: mild distress - Respiratory Additional comments: Wheezed, rales throughout all lung morrison. - Cardiovascular Cardiovascular exam: Present: irregular rhythm - GI/Abdominal GI/Abdominal exam: Present: normal bowel sounds, soft - Additional comments: French with light sol urine - Extremities Exam Additional comments: 2+ bilateral lower extremity edema - Neurological Exam Additional comments: Oriented to name and place only - Psychiatric Psychiatric exam: Present: anxious - Skin Skin exam: Present: dry, warm Palliative Quality Palliative Quality: Screen for Code Status: Yes, Screen for Goals of Care: Yes, Screen for Pain: Yes, If Pain Regimen Started, Initiate Bowel Regimen: Yes, Screen for Nausea/Vomitting: Yes - Labs CBC & Chem 7: 03/06/17 03:03 03/06/17 03:03 Labs: Laboratory Results - last 24 hr 03/05/17 03/05/17 03/06/17 06:57 16:23 03:03 WBC 13.4 H RBC 3.21 L Hgb 9.1 L Hct 31.4 L MCV 97.8 MCH 28.3 MCHC 29.0 L RDW 16.1 H Plt Count 281 MPV 9.5 Immature Gran % Seg Neutrophils % Lymphocytes % Monocytes % Eosinophils % Basophils % Neutrophils # Lymphocytes # Monocytes # Eosinophils # Basophils # Nucleated RBCs/100 WBC ABG pH 7.33 ABG pCO2 62 H ABG pO2 82 L ABG HCO3 32 H ABG Total CO2 34 H ABG O2 Saturation 95 ABG Base Excess 5 H Sodium Potassium Chloride Carbon Dioxide BUN Creatinine Est GFR ( Amer) Est GFR (Non-Af Amer) BUN/Creatinine Ratio Glucose Calculated Osmolality Calcium Total Bilirubin AST ALT Alkaline Phosphatase B-Natriuretic Peptide 943 H Serum Total Protein Albumin Globulin Albumin/Globulin Ratio 03/06/17 03/06/17 03:03 03:03 WBC 13.8 H RBC 3.19 L Hgb 9.3 L Hct 31.3 L MCV 98.1 MCH 29.2 MCHC 29.7 L RDW 15.9 H Plt Count 283 MPV 9.8 Immature Gran % 1.7 Seg Neutrophils % 90.7 Lymphocytes % 4.4 Monocytes % 3.0 Eosinophils % 0.0 Basophils % 0.2 Neutrophils # 12.5 H Lymphocytes # 0.6 Monocytes # 0.4 Eosinophils # 0.0 Basophils # 0.0 Nucleated RBCs/100 WBC 0.2 H ABG pH ABG pCO2 ABG pO2 ABG HCO3 ABG Total CO2 ABG O2 Saturation ABG Base Excess Sodium 142 Potassium 4.8 H Chloride 102 Carbon Dioxide 31 H BUN 68 H Creatinine 2.11 H Est GFR ( Amer) 27 L Est GFR (Non-Af Amer) 23 L BUN/Creatinine Ratio 32 H Glucose 131 H Calculated Osmolality 316 H Calcium 8.8 Total Bilirubin 0.2 AST 11 ALT 21 Alkaline Phosphatase 63 B-Natriuretic Peptide Serum Total Protein 5.7 L Albumin 2.8 L Globulin 2.9 Albumin/Globulin Ratio 1.0 L - ABG Interpretation ABG results: ABG ABG pH 7.33 pH Units (7.32-7.45) 03/05/17 16:23 ABG pCO2 62 mmHg (35-45) H 03/05/17 16:23 ABG pO2 82 mmHg (85-104) L 03/05/17 16:23 ABG O2 Saturation 95 % (95-98) 03/05/17 16:23 Consult Discharge Plan - Plan Referrals: Lisbeth Salmon, [facility] [Primary Care Provider] - 03/15/17 10:00 am
[2017-03-06] MEDS ORDERED: 0.9 % Sodium Chloride 250 ML ONE (10:09)
[2017-03-06] MEDS: Budesonide/Formoterol 160/4.5 MDI IH SCH ×2 (10:37→22:01)
[2017-03-06] MEDS: Tiotropium 18 MCG inhalation IH SCH (10:43)
--- NOTE | 2017-03-06 11:01 | Nephrology Consult Note ---
Date of Encounter: 03/06/17 Time of Encounter: 11:00 Assessment and Plan (1) Acute kidney injury superimposed on CKD Current Visit: Yes Status: Acute 81-year-old female with known stage III kidney disease follows up with Dr. Fletcher in the outpatient clinic. Since admission she has received 40 mg IV Lasix twice a day to treat volume status. Since starting IV diuresis has been an elevation in creatinine 2.11, GFR 23 and the BUS of 31. Review of outpatient records demonstrates that in November of this year her GFR was greater than 60 and is a roughly 42 since admission. Her baseline creatinine appears to be around 1.00. - Suspect secondary to excess diuresis with IV Lasix. Plan: - Continue to hold IV Lasix - Avoid nephrotoxic medications and renally dose antibiotics - Urinalysis with microscopy. - Strict intake and output monitoring, daily weights - Urine creatinine, urine sodium, serum uric acid. (2) Acute on chronic congestive heart failure Current Visit: Yes Status: Acute 81-year-old female admitted with acute on chronic diastolic heart failure with significant bilateral lower extremity edema. - Heart failure is likely contributing to acute on chronic kidney disease. - Continue optimizing cardiac medications to maintain appropriate cardiac output. Qualifiers: Congestive heart failure type: diastolic Qualified Code(s): I50.33 - Acute on chronic diastolic (congestive) heart failure History of Present Illness - Reason for Consult Consult date: 03/06/17 Acute Kidney Injury Requesting physician: Memo Bah - Chief Complaint worsening renal function - History of Present Illness Ms. Khalil is a 81 year old female with hypertension, hyperlipidemia, COPD, congestive heart failure, coronary artery disease, dementia, peripheral vascular disease, chronic kidney disease, A. fib, recent diagnosis of lung cancer was admitted through the emergency department with acute CHF exacerbation. She has a known history of mild diastolic heart failure with ejection fraction 60% as recently then demonstrating increase in bilateral lower extremity edema up to mid hip. She does follow with Dr. fletcher in the outpatient setting for stage III CKD but says that they have some more time in the hospital than at home and have not had time to follow-up more recently. Mrs. Khalil is not fully able to answer questions and her daughters at bedside is able to provide information. Since admission she has been receiving IV Lasix for diuresis of extra fluid weight. After renal function secondary to demonstrate worsening creatinine the Lasix was discontinued but her kidneys to function continue to rise. Her daughter who is at bedside is concerned that the other daughter may have been giving her mother higher sodium foods when she is on a strict sodium and fluid restrictions. Mrs. Khalil denies any discomforts or pain upon questioning but is unable to provide an adequate history and looks to her daughter for security. Past Med Surg Social Fam HX - Past Medical History Medical history: arthritis, cancer, CHF, COPD, coronary artery disease, dementia , GERD, hyperlipidemia, hypertension, myocardial infarction, osteoporosis, peripheral artery disease, renal disease, other Psychiatric history: anxiety, depression - Past Surgical History Surgical History: cholecystectomy, hysterectomy, orthopedic, other, BHARATHI/BSO, other - Social History Smoking Status: Former smoker Smokeless Tobacco Status: No Alcohol use: none Drug use: none - Family History Father Living Status: Hx Family Cardiac Disorders: Yes Hx Family Cancer: Yes (RCC) Mother Living Status: Hx Family Cardiac Disorders: Yes Hx Family Respiratory Disorders: No Hx Family Cancer: Yes (bladder cancer) Hx Family GI Disorders: No Hx Family Endocrine Disorder: No Hx Family Neuromuscular Disorders: No Hx Family Neurologic Disorders: No Medications and Allergies Budesonide/Formoterol 160/4.5 [Symbicort] 2 puff IH BID 02/20/15 [History] Clopidogrel [Plavix] 75 mg PO DAILY 02/20/15 [History] Donepezil [Aricept] 10 mg PO HS 04/03/15 [History] Ascorbate Calcium [Vitamin C] 500 mg PO DAILY 07/09/15 [History] Isosorbide MONOnitrate (24 HR) [Imdur] 60 mg PO DAILY 07/09/15 [History] Simvastatin [Zocor] 10 mg PO HS 07/09/15 [History] Melatonin 10 mg PO HS 08/12/16 [History] Albuterol Sulfate [Proair Hfa] 2 puff IH Q4H PRN 10/20/16 [History] Ferrous Sulfate 325 mg PO DAILY 10/20/16 [History] Hydralazine HCl 50 mg PO TID 10/20/16 [History] Nitroglycerin [Nitrostat] 0.4 mg SL Q5M PRN 10/20/16 [History] Oxygen 3 l NS CONT 10/20/16 [History] Sertraline [Zoloft] 100 mg PO DAILY 10/20/16 [History] buPROPion HCl [Bupropion HCl Sr] 200 mg PO BID 10/20/16 [History] LORazepam [Ativan] 1 mg PO HS 11/22/16 [History] Diltiazem CD (24hr) [Cardizem CD] 360 mg PO DAILY cap.er.24h 12/01/16 [Rx] predniSONE [PredniSONE] 30 mg PO DAILY 02/01/17 [History] Furosemide [Lasix] 80 mg PO 0800 02/16/17 [History] Pantoprazole Sodium [Protonix] 40 mg PO DAILY 02/16/17 [History] Potassium Chloride [Klor-Con 10] 10 meq PO BID 02/16/17 [History] Furosemide [Lasix] 40 mg PO 1200 02/20/17 [History] GuaiFENesin ER [Mucinex] 600 mg PO BID 02/20/17 [History] LORazepam [Ativan] 0.5 mg PO QID #120 tablet 02/24/17 [Rx] Metoprolol XL (24 HR) Succ [Toprol Xl] 150 mg PO DAILY #90 tab.er.24h 02/24/17 [ Rx] Oxycodone HCl 10 mg PO Q4H PRN #15 tab 02/24/17 [Rx] Ipratropium/Albuterol Neb [Duoneb] 3 ml IH QID 03/02/17 [History] Tiotropium Bruce [Spiriva Respimat] 2 puff IH DAILY 03/02/17 [History] 3 Allergy/AdvReac Type Severity Reaction Status Date / Time citalopram [From Celexa] Allergy Difficulty Verified 02/01/17 09:53 Breathing amlodipine [From Norvasc] AdvReac Difficulty Verified 02/01/17 09:53 Breathing haloperidol [From Haldol] AdvReac Hallucinati Verified 02/01/17 09:53 ng risperidone AdvReac See Verified 02/01/17 09:53 Comments roflumilast [From Daliresp] AdvReac Difficulty Verified 02/01/17 09:53 Breathing Review of Systems ROS unobtainable: due to mental status Exam - Vital Signs Vital signs: Initial Vital Signs Temp Pulse Resp BP Pulse Ox 98.6 F 111 20 126/73 97 03/02/17 13:15 03/02/17 13:15 03/02/17 13:15 03/02/17 13:15 03/02/17 13:15 Vital Signs - Last 8 Hours Temp Pulse Resp BP Pulse Ox 03/06/17 10:38 20 93 03/06/17 08:01 97.7 F 122 20 123/80 94 03/06/17 05:06 16 99 03/06/17 04:24 97.6 F 98 22 138/98 98 Intake and Output 03/05/17 03/06/17 03/06/17 23:59 07:59 15:59 Intake Total 76.5 / 76.5 0 / 0 360 / 360 Output Total 200 / 200 Balance -123.5 / -123.5 0 / 0 360 / 360 Intake: IV Fluids 76.5 / 76.5 Cardizem 125 MG In Dextrose 5% 76.5 / 76.5 100 ML @ 5 MG/HR 5 mls/hr IVC . Q24H KAMRAN Rx#:[id number] Oral 0 / 0 360 / 360 Output: Catheter 200 / 200 Other: Meal Dinner Breakfast Percent of Meal Consumed 5% 80% Weight 82.5 kg Patient Weight 03/06/17 23:59 Weight 82.5 kg - General Appearance Exam: General: Patient alert, awake, interactive, in no acute distress HEENT: Normocephalic, atraumatic, pupils equal reactive to light, nasal cavity patent and open septum median position, oral mucosa moist, uvula midline, neck supple trachea midline no palpable lymphadenopathy, no thyromegaly. Chest: Symmetric bilateral correlating with respiratory effort, effort nonlabored. Patient has kyphosis of the thoracic spine. Cardiac: Irregularly irregular heart rate and rhythm no bruits appreciated bilateral carotids, Radial pulses 2+ bilateral, posterior tibial and dorsal pedal pulses 2+ bilateral, bilateral lower extremity edema 2+ pitting to mid hip. Respiratory: Diminished respiratory effort, diffuse crackles in bilateral lung bases. Abdomen: Soft, nontender, positive bowel sounds, no palpable masses appreciated on examination Extremities: Symmetric bilateral, bilateral lower extremities without erythema, patient moving all 4 extremities spontaneously. Neurologic: No focal deficits appreciated on examination. Face symmetric, Results - Lab Results 03/06/17 03:03 03/06/17 03:03 Most recent lab results ABG pH 7.33 pH Units (7.32-7.45) 03/05/17 16:23 ABG pCO2 62 mmHg (35-45) H 03/05/17 16:23 ABG pO2 82 mmHg (85-104) L 03/05/17 16:23 ABG HCO3 32 mEq/L (21-27) H 03/05/17 16:23 ABG O2 Saturation 95 % (95-98) 03/05/17 16:23 Calcium 8.8 mg/dL (8.6-10.8) 03/06/17 03:03 Consult Discharge Plan - Plan Referrals: Lisbeth Salmon, [facility] [Primary Care Provider] - 03/15/17 10:00 am
[2017-03-06] MEDS: *HR* LORazepam 0.5 MG TABLET PO PRN ×2 (11:42→18:21)
[2017-03-06] MEDS: *HR* LORazepam 1 MG TABLET PO SCH (21:42)
[2017-03-06] MEDS: DiphenhydraMINE CREAM 28.4 GM TUBE TP PRN (22:14)
[2017-03-07] MEDS: *HR* Heparin 5,000 UNIT/ML VIAL SQ SCH ×4 (01:20→23:57)
[2017-03-07] MEDS: *HR* LORazepam 0.5 MG TABLET PO PRN ×2 (01:20→08:37)
[2017-03-07] MEDS: Ipratropium/Albuterol Neb 3 ML IH SCH ×2 (03:48→10:33)
[2017-03-07 05:36] LABS: Hematocrit 32.4 % (35.3-44.9); Hemoglobin 9.6 g/dL (11.5-15.4); Mean Corpuscular HGB Conc 29.6 g/dL (31.6-35.5); Mean Corpuscular Hemoglobin 29.1 pg (28.0-33.3); Mean Corpuscular Volume 98.2 fL (83.0-100.0); Mean Platelet Volume 9.7 fL (9.4-12.4); Platelet Count 291 K/mcL (140-400); Red Cell Distribution Width 16.1 % (11.5-14.5)
[2017-03-07 05:54] LABS: Albumin 2.8 g/dL (3.5-5.0); Albumin/Globulin Ratio 0.8 (1.1-2.2); Bilirubin,Total 0.3 mg/dL (0.2-1.2); Calcium 8.7 mg/dL (8.6-10.8); Globulin 3.4 g/dL (2.4-3.5); Total Protein 6.2 g/dL (6.0-8.3)
[2017-03-07 05:55] LABS: Potassium 5.1 mEq/L (3.5-4.5)
[2017-03-07] MEDS: *HR* Morphine Sulfate SR (12 HR) 15 MG TABLET.ER PO SCH ×2 (06:46→19:47)
--- NOTE | 2017-03-07 08:00 | Internal Med Progress Note ---
<Sorin Marte P - Last Filed: 03/07/17 12:19> Date of Encounter: 03/07/17 - Constitutional Vitals: Temp Pulse Resp BP Pulse Ox 97.5 F L 92 21 129/72 96 03/07/17 12:05 03/07/17 12:05 03/07/17 12:05 03/07/17 12:05 03/07/17 12:05 Internal Medicine: Result - Labs CBC & Chem 7: 03/07/17 03:48 03/07/17 03:48 Labs: Short CBC 03/07/17 Range/Units 03:48 WBC 13.2 H (4.3-11.1) K/mcL Hgb 9.6 L (11.5-15.4) g/dL Hct 32.4 L (35.3-44.9) % Plt Count 291 (140-400) K/mcL BMP 03/07/17 03:48 Sodium 142 Potassium 5.1 H Chloride 103 Carbon Dioxide 28 BUN 73 H Creatinine 2.06 H Glucose 89 Calcium 8.7 Liver Function 03/07/17 Range/Units 03:48 Total Bilirubin 0.3 (0.2-1.2) mg/dL AST 32 (5-34) Units/L ALT 15 (0-55) Units/L Alkaline Phosphatase 60 (38-126) Units/L Albumin 2.8 L (3.5-5.0) g/dL - ABG Interpretation ABG results: ABG ABG pH 7.33 pH Units (7.32-7.45) 03/05/17 16:23 ABG pCO2 62 mmHg (35-45) H 03/05/17 16:23 ABG pO2 82 mmHg (85-104) L 03/05/17 16:23 ABG O2 Saturation 95 % (95-98) 03/05/17 16:23 Consult Discharge Plan - Plan Referrals: Lisbeth Salmon, STRESS ANALYST [Primary Care Provider] - 03/15/17 10:00 am - Attending Attestation I examined this patient and my medical decision-making was reviewed with the Resident Physician. I agree with the documented findings, disposition and treatment plan as described except to the extent set forth below. Patient seen and examined. Chart reviewed. Patient is terminally ill. Noted input from cardiology/nephrology/radiation oncology. I had a long discussion with the patient's daughter, who is a POA. Patient's daughter is of opinion that patient should be considered for hospice. Plan: Will call palliative care and update them regarding this new development. We will follow the recommendations from palliative care. We will respect the family wishes. <Arin Vazquez - Last Filed: 03/07/17 17:12> Date of Encounter: 03/07/17 Time of Encounter: 08:30 - Assessment and plan (1) Acute and chronic respiratory failure with hypoxia Current Visit: Yes Status: Acute Assessment and plan: Acute on chronic respiratory failure with hypoxia, secondary to CHF and COPD, as well as lung cancer BNP 955 on admission. 1.5 L fluid restriction, strict I's and O's, daily weight Patient and family members have decided to pursue hospice. (2) Acute on chronic congestive heart failure Current Visit: Yes Status: Acute Assessment and plan: Acute on chronic diastolic congestive heart failure --echo 11/25/16 LVEF 60%, moderate diastolic dysfunction Cardiology on board, appreciate recommendations 03/05 Switch diuresis to Bumex, start Imdur for preload reduction 03/07 Bumex discontinued due to decreasing renal function Qualifiers: Congestive heart failure type: diastolic Qualified Code(s): I50.33 - Acute on chronic diastolic (congestive) heart failure (3) COPD (chronic obstructive pulmonary disease) Current Visit: Yes Status: Acute Assessment and plan: Acute exacerbation of COPD superimposed on acute exacerbation of CHF methylprednisolone day 4 03/05 Urine culture demonstrates Proteus mirabilis greater than 100,000 colony- forming units which is resistant to Levaquin --Switch the patient to ceftriaxone for a total treatment of COPD exacerbation and UTI Rocephin day 3 Qualifiers: COPD type: emphysema Emphysema type: panlobular Qualified Code(s): J43.1 - Panlobular emphysema (4) Atrial fibrillation Current Visit: Yes Status: Chronic Assessment and plan: Atrial fibrillation with rapid ventricular response, chronic Heart rate has remained elevated Per cardiology, heart rate will be difficult to control considering comorbid conditions and the patient is a poor candidate for anticoagulation: continue Plavix. Qualifiers: Atrial fibrillation type: paroxysmal Qualified Code(s): I48.0 - Paroxysmal atrial fibrillation (5) Urinary tract infection Current Visit: Yes Status: Acute Assessment and plan: Urine culture demonstrates Proteus mirabilis >100,000 colony-forming units Sample is resistant to Levaquin 03/05 Begin ceftriaxone for total treatment of COPD exacerbation and UTI Rocephin day 3 Qualifiers: Urinary tract infection type: acute cystitis Hematuria presence: without hematuria Qualified Code(s): N30.00 - Acute cystitis without hematuria (6) Acute kidney injury superimposed on CKD Current Visit: Yes Status: Acute Assessment and plan: Serum creatinine 2.11, BUN and 68, GFR 23 Acute kidney injury is worsening, likely secondary to aggressive diuresis Fluid resuscitation difficult considering patient's severe CHF exacerbation. Nephrology consulted, appreciate recommendations 03/07 Discontinue bumex (7) Anxiety Current Visit: No Status: Chronic Assessment and plan: anxiety increased due to feeling of smothering palliative on board; appreciate recommendations ativan TID PRN and scheduled qhs (8) Generalized pain Current Visit: Yes Status: Acute Assessment and plan: palliative on board; appreciate recommendations currently on MS contin 15 mg q12 and oxycodone 10 mg q4 PRN (9) Lung cancer Current Visit: Yes Status: Acute Assessment and plan: History of lung nodules Dr. Bustamante, radiation oncologist, on board; appreciate recommendations Qualifiers: Laterality: unspecified laterality Lung location: unspecified part of lung Qualified Code(s): C34.90 - Malignant neoplasm of unspecified part of unspecified bronchus or lung - Subjective Interval history: The patient still has the sensation of smothering along with anxiety. This is relieved best with ativan and bipap. - Constitutional Vitals: Temp Pulse Resp BP Pulse Ox 97.4 F L 86 20 125/90 96 03/07/17 07:56 03/07/17 07:56 03/07/17 07:56 03/07/17 07:56 03/07/17 07:56 General appearance: Present: cachectic, mild distress - Head Head exam: Present: atraumatic, normocephalic - Eye Eye exam: Present: PERRL, conjuntiva pink, sclera anicteric Pupils: Present: PERRL - Neck Neck exam general surgery: Present: supple, trachea midline - Respiratory Respiratory exam: Present: decreased breath sounds Additional comments: audible wheezes and gurgles when talking with patient - no stethoscope needed - Cardiovascular Cardiovascular exam: Present: irregular rhythm, +S1, +S2, tachycardia - GI/Abdominal GI/Abdominal exam: Present: normal bowel sounds, soft. Absent: tenderness - Extremities Exam Extremities exam: Present: pedal edema Additional comments: evidence of chronic venous stasis, right lower leg wrapped due weeping - Neurological Exam Neurological exam: Present: alert, oriented X3. Absent: pronater drift, facial droop, speech deficit - Psychiatric Psychiatric exam: Present: anxious - Skin Skin exam: Present: warm. Absent: intact, normal color Internal Medicine: Result - Labs CBC & Chem 7: 03/07/17 03:48 03/07/17 03:48 Labs: Short CBC 03/07/17 Range/Units 03:48 WBC 13.2 H (4.3-11.1) K/mcL Hgb 9.6 L (11.5-15.4) g/dL Hct 32.4 L (35.3-44.9) % Plt Count 291 (140-400) K/mcL BMP 03/07/17 03:48 Sodium 142 Potassium 5.1 H Chloride 103 Carbon Dioxide 28 BUN 73 H Creatinine 2.06 H Glucose 89 Calcium 8.7 Liver Function 03/07/17 Range/Units 03:48 Total Bilirubin 0.3 (0.2-1.2) mg/dL AST 32 (5-34) Units/L ALT 15 (0-55) Units/L Alkaline Phosphatase 60 (38-126) Units/L Albumin 2.8 L (3.5-5.0) g/dL - ABG Interpretation ABG results: ABG ABG pH 7.33 pH Units (7.32-7.45) 03/05/17 16:23 ABG pCO2 62 mmHg (35-45) H 03/05/17 16:23 ABG pO2 82 mmHg (85-104) L 03/05/17 16:23 ABG O2 Saturation 95 % (95-98) 03/05/17 16:23 - VTE Documentation of Mechanical Device: Intermittent pneumatic compression device
--- NOTE | 2017-03-07 08:29 | Nephrology Progress Note ---
Date of Encounter: 03/07/17 Time of Encounter: 08:29 - Assessment and Plan (1) Acute kidney injury superimposed on CKD Current Visit: Yes Status: Acute 81-year-old female with known stage III kidney disease follows up with Dr. Fletcher in the outpatient clinic. Since admission she has received 40 mg IV Lasix twice a day to treat volume status. Since starting IV diuresis has been an elevation in creatinine 2.11, GFR 23 and the BUS of 31. Review of outpatient records demonstrates that in November of this year her GFR was greater than 60 and is a roughly 42 since admission. Her baseline creatinine appears to be around 1.00. - Suspect secondary to excess diuresis with IV Lasix. 03/07: Renal function slightly improved with creatinine 2.06 and GFR 23.Poor recording of urinary output. Daily weight is roughly stable. - Elevated BUN at 78 likely secondary to Diuretic use and PO Prednisone, H&H stable, less likely to be GI bleeding. Plan: - Continue to hold IV Lasix - Avoid nephrotoxic medications and renally dose antibiotics - Urinalysis with microscopy. - Strict intake and output monitoring, daily weights - Urine creatinine, urine sodium, serum uric acid still pending. (2) Acute on chronic congestive heart failure Current Visit: Yes Status: Acute 81-year-old female admitted with acute on chronic diastolic heart failure with significant bilateral lower extremity edema. - Heart failure is likely contributing to acute on chronic kidney disease. - Continue optimizing cardiac medications to maintain appropriate cardiac output. Qualifiers: Congestive heart failure type: diastolic Qualified Code(s): I50.33 - Acute on chronic diastolic (congestive) heart failure Subjective Principal diagnosis: Atrial fibrillation Interval history: Mrs. Khalil 81-year-old female seen and evaluated in bed this morning. When asked about her breathing she says that she is okay, denies any chest pain, palpitations, chest pressure. She had no further concerns or questions at this time. No family at bedside during evaluation. Objective - Vital Signs Vital signs: Vital Signs Temp Pulse Resp BP Pulse Ox 03/07/17 07:56 97.4 F L 86 20 125/90 96 03/07/17 04:02 97.7 F 112 22 115/72 93 03/07/17 03:49 20 03/06/17 22:01 20 95 03/06/17 21:40 97 03/06/17 20:18 97.5 F L 113 22 126/83 96 03/06/17 16:05 18 92 03/06/17 15:55 97.5 F L 104 20 133/74 93 03/06/17 11:25 97.8 F 124 20 143/96 95 03/06/17 10:38 20 93 Intake and Output 03/06/17 03/07/17 03/07/17 23:59 07:59 15:59 Intake Total 0 / 0 120 / 120 0 / 0 Output Total 600 / 600 200 / 200 Balance 0 / 0 -480 / -480 -200 / -200 Intake: Oral 0 / 0 120 / 120 0 / 0 Output: Urine 200 / 200 Catheter 600 / 600 Other: Weight 83.1 kg Patient Weight 03/07/17 23:59 Weight 83.1 kg - General Appearance Exam: General: Patient alert, awake, interactive, in no acute distress HEENT: Normocephalic, atraumatic, pupils equal reactive to light, nasal cavity patent and open septum median position, oral mucosa moist, uvula midline, neck supple trachea midline no palpable lymphadenopathy, no thyromegaly. Chest: Symmetric bilateral correlating with respiratory effort, effort nonlabored. Patient has kyphosis of the thoracic spine. Cardiac: Irregularly irregular heart rate and rhythm no bruits appreciated bilateral carotids, Radial pulses 2+ bilateral, posterior tibial and dorsal pedal pulses 2+ bilateral, bilateral lower extremity edema 2+ pitting to mid hip. Respiratory: Diminished respiratory effort, diffuse crackles in bilateral lung bases. Abdomen: Soft, nontender, positive bowel sounds, no palpable masses appreciated on examination Extremities: Symmetric bilateral, bilateral lower extremities without erythema, patient moving all 4 extremities spontaneously. Neurologic: No focal deficits appreciated on examination. Face symmetric, - Lab 03/07/17 03:48 03/07/17 03:48 Most recent lab results ABG pH 7.33 pH Units (7.32-7.45) 03/05/17 16:23 ABG pCO2 62 mmHg (35-45) H 03/05/17 16:23 ABG pO2 82 mmHg (85-104) L 03/05/17 16:23 ABG HCO3 32 mEq/L (21-27) H 03/05/17 16:23 ABG O2 Saturation 95 % (95-98) 03/05/17 16:23 Calcium 8.7 mg/dL (8.6-10.8) 03/07/17 03:48 - VTE Documentation of Mechanical Device: Intermittent pneumatic compression device Consult Discharge Plan - Plan Referrals: Lisbeth Salmon CNP [Primary Care Provider] - 03/15/17 10:00 am
[2017-03-07] MEDS: Metoprolol XL (24 HR) Succ 50 MG TAB.ER.24H PO SCH ×2 (08:36→22:21)
[2017-03-07] MEDS: hydrALAZINE 25 MG TABLET PO SCH ×3 (08:36→23:57)
[2017-03-07] MEDS: BuPROPion SR (12 HR) 100 MG TABLET PO SCH ×2 (08:36→22:20)
[2017-03-07] MEDS: predniSONE 20 MG TABLET PO SCH (08:37)
[2017-03-07] MEDS: Bumetanide 1 MG TABLET PO SCH (08:37)
[2017-03-07] MEDS: Isosorbide MONOnitrate (24 HR) 60 MG TAB.ER.24H PO SCH (08:37)
[2017-03-07] MEDS: Sennosides/Docusate Sodium TABLET PO SCH ×2 (08:37→22:21)
[2017-03-07] MEDS: Diltiazem CD (24hr) 180 MG CAPSULE PO SCH (08:38)
--- NOTE | 2017-03-07 09:14 | Cardiology Progress Note ---
Date of Encounter: 03/07/17 Time of Encounter: 08:00 Assessment and Plan (1) Atrial fibrillation Current Visit: Yes Status: Chronic Per cardiology: -HR will be difficult to control in setting of acute COPD/CHF exacerbation. -Continue rate control with metoprolol and cardizem, up titrate both to HR of < 110 average. -Patient is not a candidate for anticoagulation given her falls, anemia and lung cancer. -Continue plavix (aspirin not advised per GI). -Average HR overnight, 112, atrial fibrillation. -AT time of assessment HR 90-100s. -Currently on toprol 150mg BID and cardizem CD 360mg daily. -BP 110-120s systolic. -Will continue to monitor. Qualifiers: Atrial fibrillation type: paroxysmal Qualified Code(s): I48.0 - Paroxysmal atrial fibrillation (2) Acute on chronic congestive heart failure Current Visit: Yes Status: Acute Per cardiology: -Continue diuresis. -Net negative 3138ml -States breathing is ok today. -On home dose of O2 at 3LPM per nasal cannula. -On bumex 2mg po daily. -1+ bilateral pitting edema noted. -Weight today 83.1kg, weight 02/28/17 81.5kg. -Creatinine today 2.06. -Will continue to monitor. Qualifiers: Congestive heart failure type: diastolic Qualified Code(s): I50.33 - Acute on chronic diastolic (congestive) heart failure (3) COPD exacerbation Current Visit: Yes Status: Acute Per cardiology: -Continue treatment per primary team Discussion w patient/family: The assessment and plan as outlined above was discussed with the patient who expressed understanding and agreement. All questions were answered. Thank you for involving us in the care of your patient. Please call with any questions. Discussed and reviewed with . Subjective Principal diagnosis: Atrial fibrillation Interval history: Patient states she feels ok today. Patient states breathing is "ok." Patient denies palpitations or fluttering. Patient denies chest pain. Patient states she just feels tired this morning. Objective Vital Signs, Last 4 Hours Temp Pulse Resp BP Pulse Ox 03/07/17 07:56 97.4 F L 86 20 125/90 96 General: Conversant, No Apparent Distress HEENT: Atraumatic, Normocephaly, Mucus Membranes Moist Neck: No JVD, Normal carotid pulses Cardiac: Other (Irregularly irregular) Lungs: Other (Lung sounds coarse throughout) Neuro: Alert and responsive, No focal deficits noted Abdomen: Soft, Non-Tender Skin: No rashes noted on visualized skin Musculoskeletal: No Chest Wall Tenderness Extremities: No Clubbing, No Cyanosis, Normal Pulses, Other (1+ bilateral lower extremity pitting edema. ) Results 03/07/17 03:48 03/07/17 03:48 Lab Results Active Medications Albuterol/Ipratropium (Duoneb) 3 ml IH QIDR KAMRAN Stop: 09/01/17 23:01 Last Admin: 03/07/17 03:48 Dose: 3 ml Bisacodyl (Dulcolax) 10 mg RC HS PRN PRN Reason: Constipation Stop: 09/02/17 11:28 Last Admin: 03/04/17 16:25 Dose: 10 mg Budesonide/Formoterol Fumarate (Symbicort) 2 puff IH BIDR KAMRAN PRN Reason: Protocol Stop: 09/01/17 22:01 Last Admin: 03/06/17 22:01 Dose: 2 puff Bumetanide (Bumex) 2 mg PO DAILY KAMRAN Stop: 09/05/17 09:01 Last Admin: 03/07/17 08:37 Dose: 2 mg Bupropion HCl (Wellbutrin Sr) 200 mg PO BID KAMRAN Stop: 09/01/17 21:01 Last Admin: 03/07/17 08:36 Dose: 200 mg Clopidogrel Bisulfate (Plavix) 75 mg PO DAILY KAMRAN Stop: 09/02/17 09:01 Last Admin: 03/07/17 08:37 Dose: 75 mg Diltiazem HCl (Cardizem Cd) 360 mg PO DAILY KAMRAN Stop: 09/02/17 09:01 Last Admin: 03/07/17 08:38 Dose: 360 mg Diphenhydramine HCl (Benadryl) 1 appl TP TID PRN PRN Reason: Itching Stop: 09/05/17 18:30 Last Admin: 03/06/17 22:14 Dose: 1 appl Docusate Sodium (Colace) 100 mg PO BID PRN PRN Reason: Constipation Stop: 09/01/17 18:53 Last Admin: 03/02/17 20:39 Dose: 100 mg Donepezil HCl (Aricept) 10 mg PO HS KAMRAN Stop: 09/01/17 21:01 Last Admin: 03/06/17 21:42 Dose: 10 mg Ferrous Sulfate (Ferrous Sulfate) 325 mg PO DAILY [facility] Stop: 09/02/17 09:01 Last Admin: 03/07/17 08:37 Dose: 325 mg Guaifenesin (Mucinex) 600 mg PO BID [facility] Stop: 09/01/17 21:01 Last Admin: 03/07/17 08:37 Dose: 600 mg Heparin Sodium (Porcine) (Heparin) 5,000 unit SQ Q8HR KAMRAN Stop: 09/02/17 00:01 Last Admin: 03/07/17 08:38 Dose: 5,000 unit Hydralazine HCl (Hydralazine) 50 mg PO TID [facility] Stop: 09/01/17 21:01 Last Admin: 03/07/17 08:36 Dose: 50 mg Ceftriaxone Sodium 1,000 mg/ (Dextrose) 100 mls @ 200 mls/hr IVPB Q24H [facility] Stop: 09/04/17 10:01 Last Admin: 03/06/17 09:46 Dose: 200 mls/hr Isosorbide Mononitrate (Imdur) 120 mg PO DAILY [facility] Stop: 09/03/17 11:28 Last Admin: 03/07/17 08:37 Dose: 120 mg Lorazepam (Ativan) 1 mg PO HS [facility] Stop: 09/01/17 21:01 Last Admin: 03/06/17 21:42 Dose: 1 mg Lorazepam (Ativan) 0.5 mg PO TID PRN PRN Reason: Anxiety Stop: 09/05/17 15:01 Last Admin: 03/07/17 08:37 Dose: 0.5 mg Metoprolol Succinate (Toprol Xl) 150 mg PO BID [facility] Stop: 09/05/17 09:01 Last Admin: 03/07/17 08:36 Dose: 150 mg Metoprolol Tartrate (Lopressor) 5 mg IVP Q6HR PRN PRN Reason: tachycardia Stop: 09/04/17 18:40 Last Admin: 03/05/17 20:06 Dose: 5 mg Morphine Sulfate (Ms Contin) 15 mg PO Q12HR [facility] Stop: 09/02/17 11:31 Last Admin: 03/07/17 06:46 Dose: 15 mg Morphine Sulfate (Roxanol) 10 mg PO Q4HR PRN PRN Reason: distress Stop: 09/04/17 16:00 Naloxone HCl (Narcan) 0.4 mg IVP Q2MIN PRN PRN Reason: Opioid Reversal Stop: 09/01/17 18:53 Nitroglycerin (Nitroglycerin) 0.4 mg SL Q5M PRN PRN Reason: Chest Pain Stop: 09/01/17 18:56 Omeprazole (Prilosec) 20 mg PO DAILY KAMRAN Stop: 09/02/17 09:01 Last Admin: 03/07/17 08:37 Dose: 20 mg Oxycodone HCl (Roxicodone) 10 mg PO Q4H PRN PRN Reason: Moderate Pain Last Admin: 03/05/17 20:12 Dose: 10 mg Polyethylene Glycol (Miralax) 17 gm PO 2100 [facility] Stop: 09/04/17 09:01 Last Admin: 03/06/17 21:44 Dose: 17 gm Prednisone (Prednisone) 40 mg PO DAILY KAMRAN Stop: 09/06/17 09:01 Last Admin: 03/07/17 08:37 Dose: 40 mg Senna/Docusate Sodium (Senna Plus) 2 each PO BID KAMRAN PRN Reason: Protocol Stop: 09/02/17 21:01 Last Admin: 03/07/17 08:37 Dose: 2 each Sertraline HCl (Zoloft) 100 mg PO DAILY [facility] Stop: 09/02/17 09:01 Last Admin: 03/07/17 08:36 Dose: 100 mg Simvastatin (Zocor) 10 mg PO HS [facility] PRN Reason: Protocol Stop: 09/01/17 21:01 Last Admin: 03/06/17 21:43 Dose: 10 mg Tiotropium [place] (Spiriva) 18 mcg IH DAILY KAMRAN Stop: 09/04/17 09:01 Last Admin: 03/06/17 10:43 Dose: Not Given Laboratory Tests 03/06/17 03/07/17 03/07/17 03:03 03:48 03:48 WBC 13.2 H Hgb 9.6 L Creatinine 2.11 H 2.06 H - Imaging and Cardiology Chest Xray: report reviewed - EKG Interpretation EKG results cardiology: other (Telemetry reviewed with average HR previous 12 hours noted to be 112, atrial fibrillation. PVCs noted.) - VTE Documentation of Mechanical Device: Intermittent pneumatic compression device Consult Discharge Plan - Plan Referrals: Lisbeth Salmon, JACKSON [Primary Care Provider] - 03/15/17 10:00 am
[2017-03-07] MEDS: Budesonide/Formoterol 160/4.5 MDI IH SCH ×3 (10:36→22:11)
[2017-03-07] MEDS: Tiotropium 18 MCG inhalation IH SCH (10:37)
--- NOTE | 2017-03-07 11:27 | Palliative Progress Note ---
<Sorin Marte P - Last Filed: 03/07/17 12:18> Date of Encounter: 03/07/17 - Time Spent With Patient Total time spent is greater than 50% in coordination of care (as documented) at patient's floor/unit and/or counseling patient: - Constitutional Vitals: Abnormal lab results WBC 13.2 K/mcL (4.3-11.1) H 03/07/17 03:48 RBC 3.30 M/mcL (3.82-4.97) L 03/07/17 03:48 Hgb 9.6 g/dL (11.5-15.4) L 03/07/17 03:48 Hct 32.4 % (35.3-44.9) L 03/07/17 03:48 MCHC 29.6 g/dL (31.6-35.5) L 03/07/17 03:48 RDW 16.1 % (11.5-14.5) H 03/07/17 03:48 Neutrophils # 12.5 K/mcL (1.6-8.9) H 03/06/17 03:03 Nucleated RBCs/100 WBC 0.2 /100 WBC (0) H 03/06/17 03:03 ABG pCO2 62 mmHg (35-45) H 03/05/17 16:23 ABG pO2 82 mmHg (85-104) L 03/05/17 16:23 ABG HCO3 32 mEq/L (21-27) H 03/05/17 16:23 ABG Total CO2 34 mEq/L (20-26) H 03/05/17 16:23 ABG Base Excess 5 mEq/L (-2 to 3) H 03/05/17 16:23 Potassium 5.1 mEq/L (3.5-4.5) H 03/07/17 03:48 BUN 73 mg/dL (7-20) H 03/07/17 03:48 Creatinine 2.06 mg/dL (0.57-1.11) H 03/07/17 03:48 Est GFR ( Amer) 28 (> 60) L 03/07/17 03:48 Est GFR (Non-Af Amer) 23 (> 60) L 03/07/17 03:48 BUN/Creatinine Ratio 35 (6-26) H 03/07/17 03:48 Calculated Osmolality 315 (280-300) H 03/07/17 03:48 B-Natriuretic Peptide 943 pg/mL (0-100) H 03/05/17 06:57 Albumin 2.8 g/dL (3.5-5.0) L 03/07/17 03:48 Albumin/Globulin Ratio 0.8 (1.1-2.2) L 03/07/17 03:48 Ur Leukocyte Esterase Moderate (Negative) H 03/03/17 11:41 Urine Microscopic RBC 3-5 per hpf (0-3) H 03/03/17 11:41 Urine Microscopic WBC 15-30 per hpf (0-3) H 03/03/17 11:41 Ur Squamous Epith Cells Many per lpf (None-Few) H 03/03/17 11:41 Ur Culture Indicated? YES (NO) A 03/03/17 11:41 - Attending Attestation I examined this patient and my medical decision-making was reviewed with the Resident Physician. I agree with the documented findings, disposition and treatment plan as described except to the extent set forth below. Patient seen and examined. Chart reviewed. Patient is terminally ill. Noted input from cardiology/nephrology/radiation oncology. I had a long discussion with the patient's daughter, who is a POA. Patient's daughter is of opinion that patient should be considered for hospice. Plan: Will call palliative care and update them regarding this new development. We will follow the recommendations from palliative care. We will respect the family wishes. By mistake I entered my findings in this note. I am internal medicine attending and I am not the hospice/palliative care physician. - Labs CBC & Chem 7: 03/07/17 03:48 03/07/17 03:48 Labs: Laboratory Results - last 24 hr 03/07/17 03/07/17 03:48 03:48 WBC 13.2 H RBC 3.30 L Hgb 9.6 L Hct 32.4 L MCV 98.2 MCH 29.1 MCHC 29.6 L RDW 16.1 H Plt Count 291 MPV 9.7 Sodium 142 Potassium 5.1 H Chloride 103 Carbon Dioxide 28 BUN 73 H Creatinine 2.06 H Est GFR ( Amer) 28 L Est GFR (Non-Af Amer) 23 L BUN/Creatinine Ratio 35 H Glucose 89 Calculated Osmolality 315 H Calcium 8.7 Total Bilirubin 0.3 AST 32 ALT 15 Alkaline Phosphatase 60 Serum Total Protein 6.2 Albumin 2.8 L Globulin 3.4 Albumin/Globulin Ratio 0.8 L - ABG Interpretation ABG results: ABG ABG pH 7.33 pH Units (7.32-7.45) 03/05/17 16:23 ABG pCO2 62 mmHg (35-45) H 03/05/17 16:23 ABG pO2 82 mmHg (85-104) L 03/05/17 16:23 ABG O2 Saturation 95 % (95-98) 03/05/17 16:23 Consult Discharge Plan - Plan Referrals: Lisbeth Salmon, INTERNATIONAL ACCOUNT REPRESENTATIVE [Primary Care Provider] - 03/15/17 10:00 am <Pati Gonzalez - Last Filed: 03/07/17 13:07> Date of Encounter: 03/07/17 Time of Encounter: 11:10 - Assessment and plan (1) Dyspnea Current Visit: No Status: Acute Qualifiers: Dyspnea type: unspecified Qualified Code(s): R06.00 - Dyspnea, unspecified (2) Generalized pain Current Visit: Yes Status: Acute Assessment and plan: Continue MS Contin and Oxycodone for breakthrough pain. She may need increases in these doses. Will monitor (3) Constipation Current Visit: Yes Status: Acute Assessment and plan: Continue Senna. + BM 03/04. Monitor Qualifiers: Constipation type: other constipation type Qualified Code(s): K59.09 - Other constipation (4) Anxiety Current Visit: No Status: Chronic Assessment and plan: Continue with PRN Lorazepam, and scheduled at HS. If still an issue, may need to schedule throughout the day. (5) Counseling regarding advanced care planning and goals of care Current Visit: Yes Status: Acute Assessment and plan: Discussed clinical course with 2 daughters and granddaughter at length. Dr. Bustamante expected to be here soon to discuss with patient and family that radiation would probably not be beneficial at this point. I discussed with them that if she does not have this, she may best be served transitioning to hospice care. Looking at the prognosis with her fragility, FTT, CHF, Atrial fib and renal function, I expect her to be difficult to manage outside of the hospital, which will lead to frequent readmissions. I asked them to consider what their mother would want regarding quality of life. I did give them some information regarding hospice care as well. Will continue to follow. (6) Acute CHF (congestive heart failure) Current Visit: No Status: Acute Qualifiers: Congestive heart failure type: systolic Qualified Code(s): I50.21 - Acute systolic (congestive) heart failure - Time Spent With Patient Total time spent is greater than 50% in coordination of care (as documented) at patient's floor/unit and/or counseling patient: 25 - 35 minutes - Subjective Interval history: Patient up in chair on bipap. She has continued with shortness of breath, afib - Cardiology has been following closely and adjusting medications. She is pleasantly confused. Appears weak. Harsh cough with thick secretions. States breathing "ok for now". Back pain under control. Two daughters and Granddaughter at bedside. - Constitutional Vitals: Abnormal lab results WBC 13.2 K/mcL (4.3-11.1) H 03/07/17 03:48 RBC 3.30 M/mcL (3.82-4.97) L 03/07/17 03:48 Hgb 9.6 g/dL (11.5-15.4) L 03/07/17 03:48 Hct 32.4 % (35.3-44.9) L 03/07/17 03:48 MCHC 29.6 g/dL (31.6-35.5) L 03/07/17 03:48 RDW 16.1 % (11.5-14.5) H 03/07/17 03:48 Neutrophils # 12.5 K/mcL (1.6-8.9) H 03/06/17 03:03 Nucleated RBCs/100 WBC 0.2 /100 WBC (0) H 03/06/17 03:03 ABG pCO2 62 mmHg (35-45) H 03/05/17 16:23 ABG pO2 82 mmHg (85-104) L 03/05/17 16:23 ABG HCO3 32 mEq/L (21-27) H 03/05/17 16:23 ABG Total CO2 34 mEq/L (20-26) H 03/05/17 16:23 ABG Base Excess 5 mEq/L (-2 to 3) H 03/05/17 16:23 Potassium 5.1 mEq/L (3.5-4.5) H 03/07/17 03:48 BUN 73 mg/dL (7-20) H 03/07/17 03:48 Creatinine 2.06 mg/dL (0.57-1.11) H 03/07/17 03:48 Est GFR ( Amer) 28 (> 60) L 03/07/17 03:48 Est GFR (Non-Af Amer) 23 (> 60) L 03/07/17 03:48 BUN/Creatinine Ratio 35 (6-26) H 03/07/17 03:48 Calculated Osmolality 315 (280-300) H 03/07/17 03:48 B-Natriuretic Peptide 943 pg/mL (0-100) H 03/05/17 06:57 Albumin 2.8 g/dL (3.5-5.0) L 03/07/17 03:48 Albumin/Globulin Ratio 0.8 (1.1-2.2) L 03/07/17 03:48 Ur Leukocyte Esterase Moderate (Negative) H 03/03/17 11:41 Urine Microscopic RBC 3-5 per hpf (0-3) H 03/03/17 11:41 Urine Microscopic WBC 15-30 per hpf (0-3) H 03/03/17 11:41 Ur Squamous Epith Cells Many per lpf (None-Few) H 03/03/17 11:41 Ur Culture Indicated? YES (NO) A 03/03/17 11:41 General appearance: Present: no acute distress - Respiratory Additional comments: Course rhonchi throughout. - Cardiovascular Cardiovascular exam: Present: tachycardia - GI/Abdominal GI/Abdominal exam: Present: normal bowel sounds, soft - Expanded Upper Extremity Exam General: Present: abrasion (edema bilaterally lower extremities) - Neurological Exam Neurological exam: Present: alert Additional comments: Generalized weakness. Oriented to name only - Skin Skin exam: Present: dry, warm Palliative Quality Palliative Quality: Screen for Code Status: Yes, Screen for Goals of Care: Yes, Screen for Pain: Yes, If Pain Regimen Started, Initiate Bowel Regimen: Yes, Screen for Nausea/Vomitting: Yes - Labs CBC & Chem 7: 03/07/17 03:48 03/07/17 03:48 Labs: Laboratory Results - last 24 hr 03/07/17 03/07/17 03:48 03:48 WBC 13.2 H RBC 3.30 L Hgb 9.6 L Hct 32.4 L MCV 98.2 MCH 29.1 MCHC 29.6 L RDW 16.1 H Plt Count 291 MPV 9.7 Sodium 142 Potassium 5.1 H Chloride 103 Carbon Dioxide 28 BUN 73 H Creatinine 2.06 H Est GFR ( Amer) 28 L Est GFR (Non-Af Amer) 23 L BUN/Creatinine Ratio 35 H Glucose 89 Calculated Osmolality 315 H Calcium 8.7 Total Bilirubin 0.3 AST 32 ALT 15 Alkaline Phosphatase 60 Serum Total Protein 6.2 Albumin 2.8 L Globulin 3.4 Albumin/Globulin Ratio 0.8 L - ABG Interpretation ABG results: ABG ABG pH 7.33 pH Units (7.32-7.45) 03/05/17 16:23 ABG pCO2 62 mmHg (35-45) H 03/05/17 16:23 ABG pO2 82 mmHg (85-104) L 03/05/17 16:23 ABG O2 Saturation 95 % (95-98) 03/05/17 16:23
[2017-03-07] MEDS: Morphine Oral CONC 5 MG/0.25 ML ORAL.SYG PO PRN (11:39)
--- NOTE | 2017-03-07 12:44 | Rad Onc Consult Note ---
Radiation Oncology HPI - Oncology history Comments: 81-year-old female presents on BiPAP with CKD with two growing, PET-avid nodules. Patient with clinical decline. Consulted for role of radiotherapy during patient's inpatient stay. Date: 03/07/17 Primary Care Provider: Lisbeth Salmon CNP History of present illness: Ms. Khalil has had clinical decline and is confused. She is having pain in her legs. She is not oriented and is sleeping. She has acute on chronic renal failure. She has a COPD/CHF exacerbation in the setting of difficult to control atrial fibrillation per cardiology. She has significant decline since her last visit. Patient is asking for aggressive therapy to stop, so she is comfortable. Daughter is asking the same. I am being consulted for the role of radiotherapy to her lung nodules in this clinical setting. Code Status: DNR-CCA Past Medical History: arthritis, CHF, coronary artery disease, hyperlipidemia, hypertension Other History: Depression. Pt. recently in rehab for broken ribs. compression fracture in back Surgical History: cataract, cholecystectomy, hysterectomy, orthopedic, other, other Hospitalization facilities, dates and reasons: pneumonia multiple times Smoking Status: Former smoker Smokeless Tobacco Status: No Alcohol use: none Drug use: none Family History -Oncology: heart disease, hypertension, cancer Oncology - Medications Budesonide/Formoterol 160/4.5 [Symbicort] 2 puff IH BID 02/20/15 [History] Clopidogrel [Plavix] 75 mg PO DAILY 02/20/15 [History] Donepezil [Aricept] 10 mg PO HS 04/03/15 [History] Ascorbate Calcium [Vitamin C] 500 mg PO DAILY 07/09/15 [History] Isosorbide MONOnitrate (24 HR) [Imdur] 60 mg PO DAILY 07/09/15 [History] Simvastatin [Zocor] 10 mg PO HS 07/09/15 [History] Melatonin 10 mg PO HS 08/12/16 [History] Albuterol Sulfate [Proair Hfa] 2 puff IH Q4H PRN 10/20/16 [History] Ferrous Sulfate 325 mg PO DAILY 10/20/16 [History] Hydralazine HCl 50 mg PO TID 10/20/16 [History] Nitroglycerin [Nitrostat] 0.4 mg SL Q5M PRN 10/20/16 [History] Oxygen 3 l NS CONT 10/20/16 [History] Sertraline [Zoloft] 100 mg PO DAILY 10/20/16 [History] buPROPion HCl [Bupropion HCl Sr] 200 mg PO BID 10/20/16 [History] LORazepam [Ativan] 1 mg PO HS 11/22/16 [History] Diltiazem CD (24hr) [Cardizem CD] 360 mg PO DAILY cap.er.24h 12/01/16 [Rx] predniSONE [PredniSONE] 30 mg PO DAILY 02/01/17 [History] Furosemide [Lasix] 80 mg PO 0800 02/16/17 [History] Pantoprazole Sodium [Protonix] 40 mg PO DAILY 02/16/17 [History] Potassium Chloride [Klor-Con 10] 10 meq PO BID 02/16/17 [History] Furosemide [Lasix] 40 mg PO 1200 02/20/17 [History] GuaiFENesin ER [Mucinex] 600 mg PO BID 02/20/17 [History] LORazepam [Ativan] 0.5 mg PO QID #120 tablet 02/24/17 [Rx] Metoprolol XL (24 HR) Succ [Toprol Xl] 150 mg PO DAILY #90 tab.er.24h 02/24/17 [ Rx] Oxycodone HCl 10 mg PO Q4H PRN #15 tab 02/24/17 [Rx] Ipratropium/Albuterol Neb [Duoneb] 3 ml IH QID 03/02/17 [History] Tiotropium [place] [Spiriva Respimat] 2 puff IH DAILY 03/02/17 [History] 3 Allergy/AdvReac Type Severity Reaction Status Date / Time citalopram [From Celexa] Allergy Difficulty Verified 02/01/17 09:53 Breathing amlodipine [From Norvasc] AdvReac Difficulty Verified 02/01/17 09:53 Breathing haloperidol [From Haldol] AdvReac Hallucinati Verified 02/01/17 09:53 ng risperidone AdvReac See Verified 02/01/17 09:53 Comments roflumilast [From Daliresp] AdvReac Difficulty Verified 02/01/17 09:53 Breathing Review of Systems Provider Comments: A 12 point review of systems was performed. Pertinent positives and negatives are listed below and in the history of present illness. All other systems negative. General/Constitutional: Loss of Appetite, Change in Activity Level Ear/Nose/Eyes/Throat: Trouble Swallowing GI/DIETARY: Bowel Habit Changes Urinary: Urine Control Difficulty Physical Exam - Vitals Vital Signs: Last Vital Signs Temp 97.5 F L 03/07/17 12:05 Pulse 92 03/07/17 12:05 Resp 21 03/07/17 12:05 BP 129/72 03/07/17 12:05 Pulse Ox 96 03/07/17 12:05 Weight: 83.1 kg Pain Scale: 10 ECO - Consciousness/Orientation Level Of Consciousness: Drowsy, Lethargic, Sedated, Disoriented, Restless Physical Exam: General: Restless, disoriented. Mental Status: Confused. HEENT: Sclerae anicteric. No mucositis or thrush. No other oral lesions or erythema. Skin: No rashes. Some superficial bruising. Lymph nodes: No cervical, supraclavicular, axillary, or inguinal adenopathy. Integument: Thin skin with bruising. Edema noted in soft tissues of bilateral lower extremities. Abdomen: Soft, nontender; no organomegaly or masses palpable. Extremities: Bilateral lower extremity edema with leg tenderness. No joint deformity. Bandage on right leg from injury. Oncology- Results - Labs Labs: Short CBC 03/07/17 Range/Units 03:48 WBC 13.2 H (4.3-11.1) K/mcL Hgb 9.6 L (11.5-15.4) g/dL Hct 32.4 L (35.3-44.9) % Plt Count 291 (140-400) K/mcL BMP 03/07/17 03:48 Sodium 142 Potassium 5.1 H Chloride 103 Carbon Dioxide 28 BUN 73 H Creatinine 2.06 H Glucose 89 Calcium 8.7 Liver Function 03/07/17 Range/Units 03:48 Total Bilirubin 0.3 (0.2-1.2) mg/dL AST 32 (5-34) Units/L ALT 15 (0-55) Units/L Alkaline Phosphatase 60 (38-126) Units/L Albumin 2.8 L (3.5-5.0) g/dL - Assessment Assessment: Ms. Khalil would not benefit from SBRT at this time, as she has had rapid clinical decline. She has been hospitalized frequently over the past three months. Daughter is asking about Hospice care. I think she is Hospice appropriate. She is not Hospice appropriate from the standpoint of her cancer alone, but in the setting of her pulmonary and cardiac clinical decline with likely cancer, Hospice would be ideal. She is having lots of pain and cannot get in a comfortable position. I am concerned about her comfort, as she appears to be dying. I have contacted Gillian Gonzalez and let her know of the family's wishes. I am available at any time for questions or concerns. Thank you for including me in these critical decisions for this patient and family. Freddie, Price Bustamante MD Radiation Oncologist [facility]
[2017-03-07] MEDS: Levalbuterol Neb 1.25 MG/3 ML IH SCH ×3 (16:03→22:11)
[2017-03-07] MEDS: DiphenhydraMINE CREAM 28.4 GM TUBE TP PRN (19:28)
[2017-03-07] MEDS ORDERED: Leptospermum Honey Gel 44 ML TUBE TP SCH (21:00)
[2017-03-07] MEDS: *HR* LORazepam 1 MG TABLET PO SCH (22:21)
[2017-03-07] MEDS: *HR* OxyCODONE Immed Rel 5 MG TABLET PO PRN (23:57)
[2017-03-08 04:42] LABS: Hematocrit 31.3 % (35.3-44.9); Hemoglobin 9.3 g/dL (11.5-15.4); Mean Corpuscular HGB Conc 29.7 g/dL (31.6-35.5); Mean Corpuscular Hemoglobin 28.8 pg (28.0-33.3); Mean Corpuscular Volume 96.9 fL (83.0-100.0); Mean Platelet Volume 9.6 fL (9.4-12.4); Platelet Count 235 K/mcL (140-400); Red Blood Count 3.23 M/mcL (3.82-4.97); Red Cell Distribution Width 15.9 % (11.5-14.5)
[2017-03-08] MEDS: Levalbuterol Neb 1.25 MG/3 ML IH SCH ×2 (04:44→10:59)
[2017-03-08 04:58] LABS: Albumin 2.8 g/dL (3.5-5.0); Bilirubin,Total 0.3 mg/dL (0.2-1.2); Calcium 8.8 mg/dL (8.6-10.8); Globulin 2.7 g/dL (2.4-3.5); Potassium 4.2 mEq/L (3.5-4.5); Total Protein 5.5 g/dL (6.0-8.3)
[2017-03-08 06:49] VITALS: BP 127/89
[2017-03-08] MEDS: Tiotropium 18 MCG inhalation IH SCH (07:34)
--- NOTE | 2017-03-08 08:09 | Discharge Summary ---
<Arin Vazquez - Last Filed: 03/08/17 11:21> Date of Encounter: 03/08/17 Time of Encounter: 09:07 - Discharge Diagnosis (1) Acute and chronic respiratory failure with hypoxia Priority: Primary Status: Acute (2) Acute on chronic congestive heart failure Priority: Primary Status: Acute Qualifiers: Congestive heart failure type: diastolic Qualified Code(s): I50.33 - Acute on chronic diastolic (congestive) heart failure (3) COPD (chronic obstructive pulmonary disease) Priority: Primary Status: Acute Qualifiers: COPD type: emphysema Emphysema type: panlobular Qualified Code(s): J43.1 - Panlobular emphysema (4) Atrial fibrillation Priority: Secondary Status: Chronic Qualifiers: Atrial fibrillation type: paroxysmal Qualified Code(s): I48.0 - Paroxysmal atrial fibrillation (5) Urinary tract infection Priority: Secondary Status: Acute Qualifiers: Urinary tract infection type: acute cystitis Hematuria presence: without hematuria Qualified Code(s): N30.00 - Acute cystitis without hematuria (6) Acute kidney injury superimposed on CKD Priority: Primary Status: Acute (7) Anxiety Priority: Secondary Status: Chronic (8) Generalized pain Priority: Secondary Status: Acute (9) Lung cancer Priority: Secondary Status: Acute Qualifiers: Laterality: unspecified laterality Lung location: unspecified part of lung Qualified Code(s): C34.90 - Malignant neoplasm of unspecified part of unspecified bronchus or lung - Discharge Medications Home Medications: Budesonide/Formoterol 160/4.5 [Symbicort] 2 puff IH BID 02/20/15 [History] Clopidogrel [Plavix] 75 mg PO DAILY 02/20/15 [History] Donepezil [Aricept] 10 mg PO HS 04/03/15 [History] Isosorbide MONOnitrate (24 HR) [Imdur] 60 mg PO DAILY 07/09/15 [History] Simvastatin [Zocor] 10 mg PO HS 07/09/15 [History] Melatonin 10 mg PO HS 08/12/16 [History] Albuterol Sulfate [Proair Hfa] 2 puff IH Q4H PRN 10/20/16 [History] Ferrous Sulfate 325 mg PO DAILY 10/20/16 [History] Hydralazine HCl 50 mg PO TID 10/20/16 [History] Nitroglycerin [Nitrostat] 0.4 mg SL Q5M PRN 10/20/16 [History] Oxygen 3 l NS CONT 10/20/16 [History] Sertraline [Zoloft] 100 mg PO DAILY 10/20/16 [History] buPROPion HCl [Bupropion HCl Sr] 200 mg PO BID 10/20/16 [History] LORazepam [Ativan] 1 mg PO HS 11/22/16 [History] Diltiazem CD (24hr) [Cardizem CD] 360 mg PO DAILY cap.er.24h 12/01/16 [Rx] Furosemide [Lasix] 80 mg PO 0800 02/16/17 [History] Pantoprazole Sodium [Protonix] 40 mg PO DAILY 02/16/17 [History] Potassium Chloride [Klor-Con 10] 10 meq PO BID 02/16/17 [History] Furosemide [Lasix] 40 mg PO 1200 02/20/17 [History] GuaiFENesin ER [Mucinex] 600 mg PO BID 02/20/17 [History] Oxycodone HCl 10 mg PO Q4H PRN #15 tab 02/24/17 [Rx] Tiotropium [place] [Spiriva Respimat] 2 puff IH DAILY 03/02/17 [History] Bisacodyl [Dulcolax] 10 mg RC HS PRN supp.rect 03/08/17 [Rx] DiphenhydraMINE [Benadryl] 1 appl TP TID PRN tube 03/08/17 [Rx] Docusate [Colace] 100 mg PO BID PRN capsule 03/08/17 [Rx] LORazepam [Ativan] 0.5 mg PO TID PRN tablet 03/08/17 [Rx] Leptospermum Honey [Medihoney] 1 appl TP BID tube 03/08/17 [Rx] Levalbuterol Neb [Xopenex Neb] 1.25 mg IH [id number] vial.neb 03/08/17 [Rx] Metoprolol XL (24 HR) Succ [Toprol Xl] 200 mg PO BID tab.er.24h 03/08/17 [Rx] Morphine Sulfate SR (12 HR) [MS Contin] 15 mg PO Q12HR tablet.er 03/08/17 [Rx] Polyethylene Glycol 3350 [MiraLAX] 17 gm PO 2100 powd.pack 03/08/17 [Rx] Sennosides/Docusate Sodium [Senna Plus] 2 each PO BID tablet 03/08/17 [Rx] hydrALAZINE [HydrALAZINE] 25 mg PO Q8HR tablet 03/08/17 [Rx] predniSONE [PredniSONE] 40 mg PO DAILY tablet 03/08/17 [Rx] Allergies/Adverse Reactions: 3 Allergy/AdvReac Type Severity Reaction Status Date / Time citalopram [From Celexa] Allergy Difficulty Verified 02/01/17 09:53 Breathing amlodipine [From Norvasc] AdvReac Difficulty Verified 02/01/17 09:53 Breathing haloperidol [From Haldol] AdvReac Hallucinati Verified 02/01/17 09:53 ng risperidone AdvReac See Verified 02/01/17 09:53 Comments roflumilast [From Daliresp] AdvReac Difficulty Verified 02/01/17 09:53 Breathing Date of admission: 03/02/17 20:23 Primary care physician: Lisbeth Salmon CNP Consults: 03/02/17 20:25 Consult to Palliative Care [CONS] Routine Comment: Consulting Provider: Palliative Care Beth Reason for Consult: 81F with End stage CHF and COPD, recently diagnosed lung cancer, recently discontinued hospice Call Completed: No 03/04/17 09:24 Consult to Cardiology [CONS] Routine Comment: Consulting Provider: Cardiology Beth Reason for Consult: A-fib with RVR Call Completed: Yes 03/06/17 09:15 Consult to Nephrology [CONS] Routine Consulting Provider: Kidney Beth/JOE/ANNIE/ALHAJI Reason for Consult: acute on chronic CKD Time Notified: 09:16 Call Completed: Yes 03/06/17 18:37 Consult to Wound Care [CONS] Routine Reason for Consult: blood filled blister to right lateral posterior morales Call Completed: No 03/07/17 08:00 Consult to Radiation Oncology [Consult to Oncology Radiation] [CONS] Routine Consulting Provider: Oncology Radiation Beth Reason for Consult: Dr. Bustamante family conference about patient prognosis Call Completed: Yes Discharging clinician: Arin Vazquez Anticipated date of discharge: 03/08/17 - Patient Status Disposition: Hospice - Medical Facility Condition: Fair Functional capacity at discharge: wheelchair bound Overall status at discharge: patient is not back to baseline - Discharge Instructions Follow Up With: Lisbeth Salmon, UNIT SECRETARY [Primary Care Provider] - 03/15/17 10:00 am - Diet and Activity Diet: regular diet Interval History: Patient was sleeping comfortably on exam this morning. Hospital course: Ms. Khalil is a 81 year old female recently discharged from the hospital on and readmitted on 03/02 for acute on chronic respiratory failure with hypoxia. aucte on chronic CHF, COPD exacerbation, DANIEL on CKD. She has lung nodules and a chronic compression fracture of T6. She was seen by cardiology, nephrology, palliative, and radiation oncology during this admission. Her medications were optimized for her CHF and her comfort. Radiation oncology does not feel that she would benefit from radiation therapy at this time. She and her family decided on inpatient hospice yesterday. She will be discharged from this unit today and readmitted to the hospice floor. - Time Spent with Patient Total time spent providing and/or coordinating discharge services: - Constitutional Vitals: Temp Pulse Resp BP Pulse Ox 97.9 F 100 16 127/89 98 03/08/17 06:47 03/08/17 06:47 03/08/17 06:47 03/08/17 06:47 03/08/17 06:47 General appearance: Present: cachectic Exam: sleeping in bed peacefully - Head Head exam: Present: atraumatic, normocephalic - Eye Eye exam: Present: PERRL, conjuntiva pink, sclera anicteric Pupils: Present: PERRL - Neck Neck exam general surgery: Present: supple, trachea midline - Respiratory Respiratory exam: Present: rales, wheezes Additional comments: coarse breath sounds throughout - Cardiovascular Cardiovascular exam: Present: irregular rhythm, +S1, +S2, tachycardia - GI/Abdominal GI/Abdominal exam: Present: hernia, normal bowel sounds, soft. Absent: tenderness - Extremities Exam Extremities exam: Present: pedal edema, tenderness (mild due to pedal edema), warm. Absent: normal inspection (evidence of chronic PAD/PVD) - Skin Skin exam: Present: dry, warm. Absent: intact, normal color - VTE Documentation of Mechanical Device: Intermittent pneumatic compression device <Sorin Marte - Last Filed: 03/08/17 18:57> Date of Encounter: 03/08/17 Date of admission: 03/02/17 20:23 Primary care physician: Lisbeth Salmon CNP Consults: 03/02/17 20:25 Consult to Palliative Care [CONS] Routine Comment: Consulting Provider: Palliative Care Beth Reason for Consult: 81F with End stage CHF and COPD, recently diagnosed lung cancer, recently discontinued hospice Call Completed: No 03/04/17 09:24 Consult to Cardiology [CONS] Routine Comment: Consulting Provider: Cardiology Beth Reason for Consult: A-fib with RVR Call Completed: Yes 03/06/17 09:15 Consult to Nephrology [CONS] Routine Consulting Provider: Kidney Beth/JOE/ANNIE/ALHAJI Reason for Consult: acute on chronic CKD Time Notified: 09:16 Call Completed: Yes 03/06/17 18:37 Consult to Wound Care [CONS] Routine Reason for Consult: blood filled blister to right lateral posterior morales Call Completed: No 03/07/17 08:00 Consult to Radiation Oncology [Consult to Oncology Radiation] [CONS] Routine Consulting Provider: Oncology Radiation Beth Reason for Consult: Dr. Bustamante family conference about patient prognosis Call Completed: Yes Hospital course: Ms. Khalil is a 81 year old female - Time Spent with Patient Total time spent providing and/or coordinating discharge services: - Constitutional Vitals: Temp Pulse Resp BP Pulse Ox 97.9 F 100 20 127/89 94 03/08/17 06:47 03/08/17 06:47 03/08/17 11:02 03/08/17 06:47 03/08/17 11:02 - Attending Attestation I examined this patient and my medical decision-making was reviewed with the Resident Physician. I agree with the documented findings, disposition and treatment plan as described except to the extent set forth below.
--- NOTE | 2017-03-08 08:09 | Physician Discharge Referral ---
<Arin Vazquez - Last Filed: 03/08/17 11:22> Home Health/Hosp Referral Info Transfer to: Hospice Attending Provider: Dr. 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 - Diagnosis (1) Acute and chronic respiratory failure with hypoxia Priority: Primary Status: Acute (2) Acute on chronic congestive heart failure Priority: Primary Status: Acute (3) COPD (chronic obstructive pulmonary disease) Priority: Primary Status: Acute (4) Atrial fibrillation Priority: Secondary Status: Chronic (5) Urinary tract infection Priority: Secondary Status: Acute (6) Acute kidney injury superimposed on CKD Priority: Secondary Status: Acute (7) Anxiety Priority: Secondary Status: Chronic (8) Generalized pain Priority: Secondary Status: Acute (9) Lung cancer Priority: Secondary Status: Acute - Respiratory Orders Oxygen / L per min (3) Smoking Cessation: Smoking cessation has been advised. For more information, call the [employer] Tobacco Quit Line at 8-402-ERVV-NOW. - Diet/Nutrition Diet/Nutrition Orders: Regular - Activity Activity Orders: Chair - Transfer Medications Home Medications: Budesonide/Formoterol 160/4.5 [Symbicort] 2 puff IH BID 02/20/15 [History] Clopidogrel [Plavix] 75 mg PO DAILY 02/20/15 [History] Donepezil [Aricept] 10 mg PO HS 04/03/15 [History] Isosorbide MONOnitrate (24 HR) [Imdur] 60 mg PO DAILY 07/09/15 [History] Simvastatin [Zocor] 10 mg PO HS 07/09/15 [History] Melatonin 10 mg PO HS 08/12/16 [History] Albuterol Sulfate [Proair Hfa] 2 puff IH Q4H PRN 10/20/16 [History] Ferrous Sulfate 325 mg PO DAILY 10/20/16 [History] Hydralazine HCl 50 mg PO TID 10/20/16 [History] Nitroglycerin [Nitrostat] 0.4 mg SL Q5M PRN 10/20/16 [History] Oxygen 3 l NS CONT 10/20/16 [History] Sertraline [Zoloft] 100 mg PO DAILY 10/20/16 [History] buPROPion HCl [Bupropion HCl Sr] 200 mg PO BID 10/20/16 [History] LORazepam [Ativan] 1 mg PO HS 11/22/16 [History] Diltiazem CD (24hr) [Cardizem CD] 360 mg PO DAILY cap.er.24h 12/01/16 [Rx] Furosemide [Lasix] 80 mg PO 0800 02/16/17 [History] Pantoprazole Sodium [Protonix] 40 mg PO DAILY 02/16/17 [History] Potassium Chloride [Klor-Con 10] 10 meq PO BID 02/16/17 [History] Furosemide [Lasix] 40 mg PO 1200 02/20/17 [History] GuaiFENesin ER [Mucinex] 600 mg PO BID 02/20/17 [History] Oxycodone HCl 10 mg PO Q4H PRN #15 tab 02/24/17 [Rx] Tiotropium [place] [Spiriva Respimat] 2 puff IH DAILY 03/02/17 [History] Bisacodyl [Dulcolax] 10 mg RC HS PRN supp.rect 03/08/17 [Rx] DiphenhydraMINE [Benadryl] 1 appl TP TID PRN tube 03/08/17 [Rx] Docusate [Colace] 100 mg PO BID PRN capsule 03/08/17 [Rx] LORazepam [Ativan] 0.5 mg PO TID PRN tablet 03/08/17 [Rx] Leptospermum Honey [Medihoney] 1 appl TP BID tube 03/08/17 [Rx] Levalbuterol Neb [Xopenex Neb] 1.25 mg IH [id number] vial.neb 03/08/17 [Rx] Metoprolol XL (24 HR) Succ [Toprol Xl] 200 mg PO BID tab.er.24h 03/08/17 [Rx] Morphine Sulfate SR (12 HR) [MS Contin] 15 mg PO Q12HR tablet.er 03/08/17 [Rx] Polyethylene Glycol 3350 [MiraLAX] 17 gm PO 2100 powd.pack 03/08/17 [Rx] Sennosides/Docusate Sodium [Senna Plus] 2 each PO BID tablet 03/08/17 [Rx] hydrALAZINE [HydrALAZINE] 25 mg PO Q8HR tablet 03/08/17 [Rx] predniSONE [PredniSONE] 40 mg PO DAILY tablet 03/08/17 [Rx] Allergies/Adverse Reactions: 3 Allergy/AdvReac Type Severity Reaction Status Date / Time citalopram [From Celexa] Allergy Difficulty Verified 02/01/17 09:53 Breathing amlodipine [From Norvasc] AdvReac Difficulty Verified 02/01/17 09:53 Breathing haloperidol [From Haldol] AdvReac Hallucinati Verified 02/01/17 09:53 ng risperidone AdvReac See Verified 02/01/17 09:53 Comments roflumilast [From Daliresp] AdvReac Difficulty Verified 02/01/17 09:53 Breathing Certification: Further, I certify that my clinical findings support that this patient is homebound (i.e. absences from home require considerable and taxing effort and are for medical reasons or baptism services or infrequently or short duration when for other reasons) because: Homebound Reason: Patient requires assistance of a person or device to safely leave home, Leaving home requires considerable and taxing effort due to condition, Altered mental status requiring supervision when leaving home, Severity of cardiac or pulmonary status limits activity tolerance Attestation: My signature below is to certify that this patient is under my care and that I, or nurse practitioner, or a physician's faculty research assistant working with me, has a face-to -face encounter with this patient. <Sorin Marte P - Last Filed: 03/08/17 18:58> - Respiratory Orders Smoking Cessation: Smoking cessation has been advised. For more information, call the [place] Tobacco Quit Line at 3-131-WEXF-NOW. Certification: Further, I certify that my clinical findings support that this patient is homebound (i.e. absences from home require considerable and taxing effort and are for medical reasons or baptism services or infrequently or short duration when for other reasons) because: Attestation: My signature below is to certify that this patient is under my care and that I, or nurse practitioner, or a physician's faculty research assistant working with me, has a face-to -face encounter with this patient.
--- NOTE | 2017-03-08 09:12 | Event Note ---
Date of Encounter: 03/08/17 Time of Encounter: 09:10 Spoke with daughter Jade via telephone. Family would like to transition to general in hospice today. Informed Dr. Vazquez and primary nurse Rip. Referral called to [facility].
--- NOTE | 2017-03-08 09:14 | Nephrology Progress Note ---
Date of Encounter: 03/08/17 Time of Encounter: 09:10 - Assessment and Plan (1) Acute kidney injury superimposed on CKD Current Visit: Yes Status: Acute 81-year-old female with known stage III kidney disease follows up with Dr. Fletcher in the outpatient clinic. Since admission she has received 40 mg IV Lasix twice a day to treat volume status. Since starting IV diuresis has been an elevation in creatinine 2.11, GFR 23 and the BUN of 31. Review of outpatient records demonstrates that in November of this year her GFR was greater than 60 and is a roughly 42 since admission. Her baseline creatinine appears to be around 1.00. - Suspect secondary to excess diuresis with IV Lasix. 03/07: Renal function slightly improved with creatinine 2.06 and GFR 23.Poor recording of urinary output. Daily weight is roughly stable. - Elevated BUN at 78 likely secondary to Diuretic use and PO Prednisone, H&H stable, less likely to be GI bleeding. 03/08: Renal function continues to improve daily, creatinine 1.73 down from 2.06 and GFR of 28, slow trend yet improving. Urinary output 1150 ML's with a - 1110 mL fluid balance. Daily weight continues to be 83 kg. Patient will be transferred to Inpatient Hospic, Nephrology will sign off please feel to re- consult if needed. Plan: - Avoid nephrotoxic medications and renally dose antibiotics - Urinalysis with microscopy, pending - Strict intake and output monitoring, daily weights - Urine creatinine, urine sodium, serum uric acid still pending. (2) Acute on chronic congestive heart failure Current Visit: Yes Status: Acute 81-year-old female admitted with acute on chronic diastolic heart failure with significant bilateral lower extremity edema. - Heart failure is likely contributing to acute on chronic kidney disease. - Continue optimizing cardiac medications to maintain appropriate cardiac output. Qualifiers: Congestive heart failure type: diastolic Qualified Code(s): I50.33 - Acute on chronic diastolic (congestive) heart failure Subjective Principal diagnosis: Atrial fibrillation Interval history: Mrs. Khalil 81-year-old female seen and evaluated in bed this morning. She is sitting up and appears confused with increased work of breathing. She does not respond appropriately to questions when asked. Objective - Vital Signs Vital signs: Vital Signs Temp Pulse Resp BP Pulse Ox 03/08/17 06:47 97.9 F 100 16 127/89 98 03/08/17 04:50 99.0 F 83 17 123/73 96 03/08/17 04:44 18 95 03/07/17 22:20 98 03/07/17 22:19 16 98 03/07/17 20:43 98.2 F 93 19 145/80 92 03/07/17 16:00 98.0 F 92 12 111/63 96 03/07/17 12:05 97.5 F L 92 21 129/72 96 03/07/17 10:37 21 125/90 97 Intake and Output 03/07/17 03/08/17 03/08/17 23:59 07:59 15:59 Intake Total 0 / 0 Output Total 550 / 550 550 / 550 Balance -550 / -550 -550 / -550 Intake: Oral 0 / 0 Output: Catheter 550 / 550 550 / 550 Other: Weight 83 kg Patient Weight 03/08/17 23:59 Weight 83 kg - General Appearance Exam: General: Patient altered, awake, Labored breathing. HEENT: Normocephalic, atraumatic, pupils equal reactive to light, nasal cavity patent and open septum median position, oral mucosa moist, uvula midline, neck supple trachea midline no palpable lymphadenopathy, no thyromegaly. Chest: Symmetric bilateral correlating with respiratory effort, effort nonlabored. Patient has kyphosis of the thoracic spine. Cardiac: Irregularly irregular heart rate and rhythm no bruits appreciated bilateral carotids, Radial pulses 2+ bilateral, posterior tibial and dorsal pedal pulses 2+ bilateral, bilateral lower extremity edema 2+ pitting to mid hip. Respiratory: Diminished respiratory effort, diffuse rhonchi today Abdomen: Soft, nontender, positive bowel sounds, no palpable masses appreciated on examination Extremities: Symmetric bilateral, bilateral lower extremities without erythema, patient moving all 4 extremities spontaneously. Neurologic: No focal deficits appreciated on examination. Face symmetric, - Lab 03/08/17 04:16 03/08/17 04:16 Most recent lab results ABG pH 7.33 pH Units (7.32-7.45) 03/05/17 16:23 ABG pCO2 62 mmHg (35-45) H 03/05/17 16:23 ABG pO2 82 mmHg (85-104) L 03/05/17 16:23 ABG HCO3 32 mEq/L (21-27) H 03/05/17 16:23 ABG O2 Saturation 95 % (95-98) 03/05/17 16:23 Calcium 8.8 mg/dL (8.6-10.8) 03/08/17 04:16 - VTE Documentation of Mechanical Device: Intermittent pneumatic compression device Consult Discharge Plan - Plan Referrals: Lisbeth Salmon, [employer] [Primary Care Provider] - 03/15/17 10:00 am
[2017-03-08] MEDS ORDERED: Bumetanide 1 MG TABLET PO SCH (09:45)
--- NOTE | 2017-03-08 09:47 | Cardiology Progress Note ---
Date of Encounter: 03/08/17 Time of Encounter: 08:30 Assessment and Plan (1) Atrial fibrillation Current Visit: Yes Status: Chronic Per cardiology: -HR will be difficult to control in setting of acute COPD/CHF exacerbation. -Continue rate control with metoprolol and cardizem, up titrate both to HR of < 110 average. -Patient is not a candidate for anticoagulation given her falls, anemia and lung cancer. -Continue plavix (aspirin not advised per GI). -Average HR overnight, 100, atrial fibrillation. -Currently on toprol 200mg BID and cardizem CD 360mg daily. -BP 120s systolic. -Cardiology will sign off, no follow up will be schedule per discussion with Gillian Delgado CNP for palliative care. Family has decided to transfer patient to inpatient hospice. Qualifiers: Atrial fibrillation type: paroxysmal Qualified Code(s): I48.0 - Paroxysmal atrial fibrillation (2) Acute on chronic congestive heart failure Current Visit: Yes Status: Acute Per cardiology: -Continue diuresis. -Net negative 4018ml -States breathing is ok today. -On home dose of O2 at 3LPM per nasal cannula. -On bumex 2mg po daily, has been stopped for unknown reasons. -moderate bilateral edema noted. -Weight today 83kg, weight 02/28/17 81.5kg. -Creatinine today 1.73. -Restarted bumex daily. Qualifiers: Congestive heart failure type: diastolic Qualified Code(s): I50.33 - Acute on chronic diastolic (congestive) heart failure (3) COPD exacerbation Current Visit: Yes Status: Acute Per cardiology: -Continue treatment per primary team Discussion w patient/family: The assessment and plan as outlined above was discussed with the patient who expressed understanding and agreement. All questions were answered. Thank you for involving us in the care of your patient. Please call with any questions. Discussed and reviewed with . Subjective Principal diagnosis: Atrial fibrillation Interval history: Patient tearful this morning. Patient states she just wants to get "out of here. " Objective Vital Signs, Last 4 Hours Temp Pulse Resp BP Pulse Ox 03/08/17 06:47 97.9 F 100 16 127/89 98 General: Conversant, No Apparent Distress HEENT: Atraumatic, Normocephaly, Mucus Membranes Moist Neck: No JVD, Normal carotid pulses Cardiac: Other (Irregularly irregular) Lungs: Other (Lung sounds diminished throughout) Neuro: Alert and responsive, Other (Oriented to person and place) Abdomen: Soft, Non-Tender Skin: No rashes noted on visualized skin Musculoskeletal: No Chest Wall Tenderness Extremities: No Clubbing, No Cyanosis, Normal Pulses, Other (Moderate bilateral pedal edema noted, non-pitting. ) Results 03/08/17 04:16 03/08/17 04:16 Lab Results Active Medications Bisacodyl (Dulcolax) 10 mg RC HS PRN PRN Reason: Constipation Stop: 09/02/17 11:28 Last Admin: 03/04/17 16:25 Dose: 10 mg Budesonide/Formoterol Fumarate (Symbicort) 2 puff IH BIDR KAMRAN PRN Reason: Protocol Stop: 09/01/17 22:01 Last Admin: 03/07/17 22:11 Dose: 2 puff Bumetanide (Bumex) 2 mg PO DAILY [facility]AN Stop: 09/07/17 09:46 Bupropion HCl (Wellbutrin Sr) 200 mg PO BID [facility] Stop: 09/01/17 21:01 Last Admin: 03/07/17 22:20 Dose: 200 mg Clopidogrel Bisulfate (Plavix) 75 mg PO DAILY [facility] Stop: 09/02/17 09:01 Last Admin: 03/07/17 08:37 Dose: 75 mg Diltiazem HCl (Cardizem Cd) 360 mg PO DAILY [facility] Stop: 09/02/17 09:01 Last Admin: 03/07/17 08:38 Dose: 360 mg Diphenhydramine HCl (Benadryl) 1 appl TP TID PRN PRN Reason: Itching Stop: 09/05/17 18:30 Last Admin: 03/07/17 19:28 Dose: 1 appl Docusate Sodium (Colace) 100 mg PO BID PRN PRN Reason: Constipation Stop: 09/01/17 18:53 Last Admin: 03/02/17 20:39 Dose: 100 mg Guaifenesin (Mucinex) 600 mg PO BID [facility] Stop: 09/01/17 21:01 Last Admin: 03/07/17 22:20 Dose: 600 mg Hydralazine HCl (Hydralazine) 25 mg PO Q8HR [facility] Stop: 09/06/17 16:01 Last Admin: 03/07/17 23:57 Dose: 25 mg Ceftriaxone Sodium 1,000 mg/ (Dextrose) 100 mls @ 200 mls/hr IVPB Q24H [facility] Stop: 09/04/17 10:01 Last Admin: 03/07/17 13:50 Dose: 200 mls/hr Isosorbide Mononitrate (Imdur) 120 mg PO DAILY [facility] Stop: 09/03/17 11:28 Last Admin: 03/07/17 08:37 Dose: 120 mg Leptospermum Honey (Medihoney) 1 appl TP BID [facility] Stop: 09/06/17 21:01 Last Admin: 03/07/17 22:22 Dose: 1 appl Levalbuterol HCl (Xopenex) 1.25 mg IH [id number] [facility] Stop: 09/06/17 16:01 Last Admin: 03/08/17 04:44 Dose: 1.25 mg Lorazepam (Ativan) 1 mg PO HS [facility] Stop: 09/01/17 21:01 Last Admin: 03/07/17 22:21 Dose: 1 mg Lorazepam (Ativan) 0.5 mg PO TID PRN PRN Reason: Anxiety Stop: 09/05/17 15:01 Last Admin: 03/07/17 08:37 Dose: 0.5 mg Metoprolol Succinate (Toprol Xl) 200 mg PO BID [facility] Stop: 09/06/17 21:01 Last Admin: 03/07/17 22:21 Dose: 200 mg Metoprolol Tartrate (Lopressor) 5 mg IVP Q6HR PRN PRN Reason: tachycardia Stop: 09/04/17 18:40 Last Admin: 03/05/17 20:06 Dose: 5 mg Morphine Sulfate (Ms Contin) 15 mg PO Q12HR [facility] Stop: 09/02/17 11:31 Last Admin: 03/07/17 19:47 Dose: 15 mg Morphine Sulfate (Roxanol) 10 mg PO Q4HR PRN PRN Reason: distress Stop: 09/04/17 16:00 Last Admin: 03/07/17 11:39 Dose: 10 mg Naloxone HCl (Narcan) 0.4 mg IVP Q2MIN PRN PRN Reason: Opioid Reversal Stop: 09/01/17 18:53 Nitroglycerin (Nitroglycerin) 0.4 mg SL Q5M PRN PRN Reason: Chest Pain Stop: 09/01/17 18:56 Oxycodone HCl (Roxicodone) 10 mg PO Q4H PRN PRN Reason: Moderate Pain Last Admin: 03/07/17 23:57 Dose: 10 mg Polyethylene Glycol (Miralax) 17 gm PO 2100 [facility] Stop: 09/04/17 09:01 Last Admin: 03/07/17 22:21 Dose: 17 gm Prednisone (Prednisone) 40 mg PO DAILY [facility] Stop: 09/06/17 09:01 Last Admin: 03/07/17 08:37 Dose: 40 mg Senna/Docusate Sodium (Senna Plus) 2 each PO BID [facility] PRN Reason: Protocol Stop: 09/02/17 21:01 Last Admin: 03/07/17 22:21 Dose: 2 each Sertraline HCl (Zoloft) 100 mg PO DAILY [facility] Stop: 09/02/17 09:01 Last Admin: 03/07/17 08:36 Dose: 100 mg Tiotropium [place] (Spiriva) 18 mcg IH DAILY [facility] Stop: 09/04/17 09:01 Last Admin: 03/08/17 07:34 Dose: Not Given Laboratory Tests 03/07/17 03/08/17 03/08/17 03:48 04:16 04:16 Hgb 9.3 L Creatinine 2.06 H 1.73 H - Imaging and Cardiology Chest Xray: report reviewed Echo: report reviewed - EKG Interpretation EKG results cardiology: other (Telemetry reviewed with average HR previous 12 hours noted to be 100, atrial fibrillation.) - VTE Documentation of Mechanical Device: Intermittent pneumatic compression device Consult Discharge Plan - Plan Referrals: Lisbeth Salmon CNP [Primary Care Provider] - 03/15/17 10:00 am
[2017-03-08] MEDS: Budesonide/Formoterol 160/4.5 MDI IH SCH (10:59)
[2017-03-08] MEDS: *HR* Morphine Sulfate SR (12 HR) 15 MG TABLET.ER PO SCH (11:33)
[2017-03-08] MEDS: BuPROPion SR (12 HR) 100 MG TABLET PO SCH (11:33)
[2017-03-08] MEDS: *HR* LORazepam 0.5 MG TABLET PO PRN (11:33)
[2017-03-08] MEDS: predniSONE 20 MG TABLET PO SCH (11:34)
[2017-03-08] MEDS: Isosorbide MONOnitrate (24 HR) 60 MG TAB.ER.24H PO SCH (11:34)
[2017-03-08] MEDS: Diltiazem CD (24hr) 180 MG CAPSULE PO SCH (11:34)
[2017-03-08] MEDS: Metoprolol XL (24 HR) Succ 50 MG TAB.ER.24H PO SCH (11:34)
[2017-03-08] MEDS: Sennosides/Docusate Sodium TABLET PO SCH (11:35)
[2017-03-08] MEDS: hydrALAZINE 25 MG TABLET PO SCH (11:35)
[2017-03-08] MEDS: Morphine Oral CONC 5 MG/0.25 ML ORAL.SYG PO PRN (11:45)
== END 2017-03-08 13:35 | disposition hospice, inpatient (51) | DRG 291 ==
LOC: EMEROO 13:13 → 3BNU 13:13 → SUATTDRO 20:23 → 2NENU 03-04 13:03
PROVIDERS: ADMIT Registered Nurse; ATTEND Internal Medicine

== ENCOUNTER 2017-03-08 09:22 | Inpatient (IN) ==
[2017-03-08] MEDS ORDERED: Bisacodyl 10 MG RECTAL SUPPOSITORY RC PRN (09:45)
[2017-03-08] MEDS ORDERED: Haloperidol Oral Conc 10 MG/5 ML UDC PO PRN (09:45)
[2017-03-08] MEDS ORDERED: *HR* OxyCODONE Immed Rel 5 MG TABLET PO PRN (09:45)
[2017-03-08] MEDS ORDERED: Nitroglycerin 0.4 MG TAB.SUBL SL PRN (09:56)
--- NOTE | 2017-03-08 10:55 | Pallative History & Physical ---
Date of Encounter: 03/08/17 Time of Encounter: 10:40 Assessment and Plan (1) Acute and chronic respiratory failure with hypoxia Status: Acute Breathing is worsening anxiety is worsening. Will be the patient's primary diagnosis for hospice. Medications be providing decrease anxiety and increased oxygen delivery. The patient remained GIP hospice with an option transition home. (2) Constipation Status: Acute Continue bowel regimen continue to observe. Qualifiers: Constipation type: other constipation type Qualified Code(s): K59.09 - Other constipation (3) Counseling regarding advanced care planning and goals of care Status: Acute Patient will be made Comfort Care only. Patient becoming in for general inpatient hospice care her breathing. EIP hospices justified due to the patient's difficulty with breathing titration of medications. As a comorbidity patient also has lung cancer for which there is no treatment. The patient's primary diagnosis is hypoxemic hypercapnic respiratory failure (4) Lung cancer Status: Acute No further treatment is available for this. This is a comorbidity to the patient's long-term lung problems. Qualifiers: Laterality: unspecified laterality Lung location: unspecified part of lung Qualified Code(s): C34.90 - Malignant neoplasm of unspecified part of unspecified bronchus or lung (5) Dyspnea Status: Acute Oxygen, bronchodilators, is to help ease the knee associated with her shortness of breath will be given. Ultimate plan is for the patient return home if she is able to tolerate this. Qualifiers: Dyspnea type: unspecified Qualified Code(s): R06.00 - Dyspnea, unspecified (6) Anxiety Status: Chronic Multiple medications are ordered. Patient does have significant allergies with regards to this. 2 need to watch and adjust. Internal Medicine - H&P: HPI Admitted From: Intrahospital Transfer Plans for Post Hospital Care: Hospice - Home History of present illness: Ms. Khalil is a 81 year old female Well-known to me with a history of CHF COPD which is quite severe [place] as well as a recent diagnosis of lung cancer. With the diagnosis of her lung cancer she was hopeful of getting some radiation therapy for, however dehisced. Such a point that radiation oncology no longer feels that there is any and if it for this. The patient's to get any further treatment for the cancer has [place], respiratory status is so poor has opted now for aggressive care and hospice only. The patient has a great deal of anxiety associated with being short of breath. sHe is not complaining of any pain currently but is being anxious and short of breath. Past Med Surg Social Fam HX - Past Medical History Medical history: arthritis, cancer, CHF, COPD, coronary artery disease, dementia , GERD, hyperlipidemia, hypertension, myocardial infarction, osteoporosis, peripheral artery disease, renal disease, other Psychiatric history: anxiety, depression - Past Surgical History Surgical History: cholecystectomy, hysterectomy, orthopedic, other, BHARATHI/BSO, other - Social History Smoking Status: Former smoker Smokeless Tobacco Status: No Alcohol use: none Drug use: none - Family History Father Living Status: Hx Family Cardiac Disorders: Yes Hx Family Cancer: Yes (RCC) Mother Living Status: Hx Family Cardiac Disorders: Yes Hx Family Respiratory Disorders: No Hx Family Cancer: Yes (bladder cancer) Hx Family GI Disorders: No Hx Family Endocrine Disorder: No Hx Family Neuromuscular Disorders: No Hx Family Neurologic Disorders: No Internal Medicine - H&P: Meds Budesonide/Formoterol 160/4.5 [Symbicort] 2 puff IH BID 02/20/15 [History] Clopidogrel [Plavix] 75 mg PO DAILY 02/20/15 [History] Donepezil [Aricept] 10 mg PO HS 04/03/15 [History] Isosorbide MONOnitrate (24 HR) [Imdur] 60 mg PO DAILY 07/09/15 [History] Simvastatin [Zocor] 10 mg PO HS 07/09/15 [History] Melatonin 10 mg PO HS 08/12/16 [History] Albuterol Sulfate [Proair Hfa] 2 puff IH Q4H PRN 10/20/16 [History] Ferrous Sulfate 325 mg PO DAILY 10/20/16 [History] Hydralazine HCl 50 mg PO TID 10/20/16 [History] Nitroglycerin [Nitrostat] 0.4 mg SL Q5M PRN 10/20/16 [History] Oxygen 3 l NS CONT 10/20/16 [History] Sertraline [Zoloft] 100 mg PO DAILY 10/20/16 [History] buPROPion HCl [Bupropion HCl Sr] 200 mg PO BID 10/20/16 [History] LORazepam [Ativan] 1 mg PO HS 11/22/16 [History] Diltiazem CD (24hr) [Cardizem CD] 360 mg PO DAILY cap.er.24h 12/01/16 [Rx] predniSONE [PredniSONE] 30 mg PO DAILY 02/01/17 [History] Furosemide [Lasix] 80 mg PO 0800 02/16/17 [History] Pantoprazole Sodium [Protonix] 40 mg PO DAILY 02/16/17 [History] Potassium Chloride [Klor-Con 10] 10 meq PO BID 02/16/17 [History] Furosemide [Lasix] 40 mg PO 1200 02/20/17 [History] GuaiFENesin ER [Mucinex] 600 mg PO BID 02/20/17 [History] Oxycodone HCl 10 mg PO Q4H PRN #15 tab 02/24/17 [Rx] Tiotropium [place] [Spiriva Respimat] 2 puff IH DAILY 03/02/17 [History] Bisacodyl [Dulcolax] 10 mg RC HS PRN supp.rect 03/08/17 [Rx] DiphenhydraMINE [Benadryl] 1 appl TP TID PRN tube 03/08/17 [Rx] Docusate [Colace] 100 mg PO BID PRN capsule 03/08/17 [Rx] LORazepam [Ativan] 0.5 mg PO TID PRN tablet 03/08/17 [Rx] Leptospermum Honey [Medihoney] 1 appl TP BID tube 03/08/17 [Rx] Levalbuterol Neb [Xopenex Neb] 1.25 mg IH [id number] vial.neb 03/08/17 [Rx] Metoprolol XL (24 HR) Succ [Toprol Xl] 200 mg PO BID tab.er.24h 03/08/17 [Rx] Morphine Sulfate SR (12 HR) [MS Contin] 15 mg PO Q12HR tablet.er 03/08/17 [Rx] Polyethylene Glycol 3350 [MiraLAX] 17 gm PO 2100 powd.pack 03/08/17 [Rx] Sennosides/Docusate Sodium [Senna Plus] 2 each PO BID tablet 03/08/17 [Rx] hydrALAZINE [HydrALAZINE] 25 mg PO Q8HR tablet 03/08/17 [Rx] predniSONE [PredniSONE] 40 mg PO DAILY tablet 03/08/17 [Rx] 3 Allergy/AdvReac Type Severity Reaction Status Date / Time citalopram [From Celexa] Allergy Difficulty Verified 02/01/17 09:53 Breathing amlodipine [From Norvasc] AdvReac Difficulty Verified 02/01/17 09:53 Breathing haloperidol [From Haldol] AdvReac Hallucinati Verified 02/01/17 09:53 ng risperidone AdvReac See Verified 02/01/17 09:53 Comments roflumilast [From Daliresp] AdvReac Difficulty Verified 02/01/17 09:53 Breathing ROS unobtainable: due to mental status (Really more due to respiratory status) Palliative Care-Exam - Constitutional General appearance: Present: mild distress - Head Head Exam: Present: atraumatic, normal inspection - Eye Eye exam: Present: normal appearance - ENT ENT exam: Present: mucous membranes moist - Respiratory Respiratory exam: Present: decreased breath sounds, wheezes - Cardiovascular Cardiovascular exam: Present: irregular rhythm - GI/Abdominal Exam GI/Abdominal exam: Present: normal bowel sounds, soft. Absent: tenderness - Catheter Type: Urethral (French) - Extremities Exam Extremities exam: Present: pedal edema. Absent: tenderness - Neurological Exam Neurological exam: Present: alert - Psychiatric Psychiatric exam: Present: agitated (More likely secondary in the anxiety.), anxious (But refusing meds at this time. Waiting for family to come in). Absent: normal affect, normal mood - Skin Skin exam: Present: dry, warm Palliative Quality Palliative Quality: Screen for Code Status: Yes, Screen for Goals of Care: Yes, Screen for Pain: Yes, If Pain Regimen Started, Initiate Bowel Regimen: Yes, Screen for Nausea/Vomitting: Yes Code Status: 03/08/17 09:45 Resuscitation Status: Active [RES] Routine Comment: Resuscitation Status: DNR-Comfort Care
--- NOTE | 2017-03-08 11:08 | Event Note ---
Date of Encounter: 03/08/17 Time of Encounter: 11:04 Hospice medical operations supervisor certification of terminal illness: Hospice benefit. Start: 03/08/2017 Hospice benefit. In: +90 days Palliative performance scale: 35% History: Patient has history of hypercapnic hypoxemic respiratory failure. She has documented blood gas PCO2 as high as 62 oxygenation is low as 65. He has a very high anxiety level with her cOPD and her CHF. He has had multiple hospitalizations, 8 so for this year most of which have been back in some way to her breathing problems. The patient has also been identified to have lung cancer, is no treatment plan available for her as her lungs are to poor endure any treatment for this. Patient and family have opted for hospice care no further aggressive care to the patient was told by radiation oncology there was no effect to doing any radiation therapy. Therefore I believe that These findings support a life expectancy of 6 months or less. I attest that I have compose the above narrative based on my review of the patient's medical records, and or on my examination of the patient. Levi Singh M.D. Associate biomedical analytical scientist. [facility]
--- NOTE | 2017-03-08 13:45 | Palliative - Consult Note ---
Date of Encounter: 03/08/17 Time of Encounter: 13:30 Palliative-CN HPI - Data of Consult Consult date: 03/08/17 Requesting Physician: Levi Singh MD - Consult Narrative History of present illness: Ms. Khalil is a 81 year old female with hypertension, hyperlipidemia, COPD, congestive heart failure, coronary artery disease, dementia, peripheral vascular disease, chronic kidney disease, A. fib, recent diagnosis of lung cancer who originally presented to the emergency department today with complaints of shortness of breath and increased swelling for the last several days. Patient has had worsening shortness of breath, productive cough, and increased lower extremity swelling and came back to the ED. She was just discharged 6 days prior to admission. She denies any nausea, vomiting, or diarrhea. Evaluation in the emergency department included a chest x-ray which showed cardiomegaly with pulmonary edema. BNP was elevated to 955. She was treated for CHF - developed worsening renal function. Cardiology and nephrology were closely following and adjusting medications. Patient's condition continued to decline and she still requires intermittent bipap, and has struggled with dyspnea and shortness of breath. She has also had increasing confusion, despite decrease in benzodiazepine use. Originally, plan was for radiation to lung lesions, however, with pt readmissions and decline, Dr. Bustamante met with pt/family yesterday and pt no longer a candidate, nor could she tolerate radiation. Patient currently up in chair and daughter Jade is at bedside. Patient agitated and anxious this am, appears calmer with daughter at bedside. Resp easy and regular at present. C/o pain in lower back CC: Levi Singh MD Past Med Surg Social Fam HX - Past Medical History Medical history: arthritis, cancer, CHF, COPD, coronary artery disease, dementia , GERD, hyperlipidemia, hypertension, myocardial infarction, osteoporosis, peripheral artery disease, renal disease, other Psychiatric history: anxiety, depression - Past Surgical History Surgical History: cholecystectomy, hysterectomy, orthopedic, other, BHARATHI/BSO, other - Social History Smoking Status: Former smoker Smokeless Tobacco Status: No Alcohol use: none Drug use: none - Family History Father Living Status: Hx Family Cardiac Disorders: Yes Hx Family Cancer: Yes (RCC) Mother Living Status: Hx Family Cardiac Disorders: Yes Hx Family Respiratory Disorders: No Hx Family Cancer: Yes (bladder cancer) Hx Family GI Disorders: No Hx Family Endocrine Disorder: No Hx Family Neuromuscular Disorders: No Hx Family Neurologic Disorders: No Medications and Allergies Budesonide/Formoterol 160/4.5 [Symbicort] 2 puff IH BID 02/20/15 [History] Clopidogrel [Plavix] 75 mg PO DAILY 02/20/15 [History] Donepezil [Aricept] 10 mg PO HS 04/03/15 [History] Isosorbide MONOnitrate (24 HR) [Imdur] 60 mg PO DAILY 07/09/15 [History] Simvastatin [Zocor] 10 mg PO HS 07/09/15 [History] Melatonin 10 mg PO HS 08/12/16 [History] Albuterol Sulfate [Proair Hfa] 2 puff IH Q4H PRN 10/20/16 [History] Ferrous Sulfate 325 mg PO DAILY 10/20/16 [History] Hydralazine HCl 50 mg PO TID 10/20/16 [History] Nitroglycerin [Nitrostat] 0.4 mg SL Q5M PRN 10/20/16 [History] Oxygen 3 l NS CONT 10/20/16 [History] Sertraline [Zoloft] 100 mg PO DAILY 10/20/16 [History] buPROPion HCl [Bupropion HCl Sr] 200 mg PO BID 10/20/16 [History] LORazepam [Ativan] 1 mg PO HS 11/22/16 [History] Diltiazem CD (24hr) [Cardizem CD] 360 mg PO DAILY cap.er.24h 12/01/16 [Rx] predniSONE [PredniSONE] 30 mg PO DAILY 02/01/17 [History] Furosemide [Lasix] 80 mg PO 0800 02/16/17 [History] Pantoprazole Sodium [Protonix] 40 mg PO DAILY 02/16/17 [History] Potassium Chloride [Klor-Con 10] 10 meq PO BID 02/16/17 [History] Furosemide [Lasix] 40 mg PO 1200 02/20/17 [History] GuaiFENesin ER [Mucinex] 600 mg PO BID 02/20/17 [History] Oxycodone HCl 10 mg PO Q4H PRN #15 tab 02/24/17 [Rx] Tiotropium Ferris [Spiriva Respimat] 2 puff IH DAILY 03/02/17 [History] Bisacodyl [Dulcolax] 10 mg RC HS PRN supp.rect 03/08/17 [Rx] DiphenhydraMINE [Benadryl] 1 appl TP TID PRN tube 03/08/17 [Rx] Docusate [Colace] 100 mg PO BID PRN capsule 03/08/17 [Rx] LORazepam [Ativan] 0.5 mg PO TID PRN tablet 03/08/17 [Rx] Leptospermum Honey [Medihoney] 1 appl TP BID tube 03/08/17 [Rx] Levalbuterol Neb [Xopenex Neb] 1.25 mg IH [id number] vial.neb 03/08/17 [Rx] Metoprolol XL (24 HR) Succ [Toprol Xl] 200 mg PO BID tab.er.24h 03/08/17 [Rx] Morphine Sulfate SR (12 HR) [MS Contin] 15 mg PO Q12HR tablet.er 03/08/17 [Rx] Polyethylene Glycol 3350 [MiraLAX] 17 gm PO 2100 powd.pack 03/08/17 [Rx] Sennosides/Docusate Sodium [Senna Plus] 2 each PO BID tablet 03/08/17 [Rx] hydrALAZINE [HydrALAZINE] 25 mg PO Q8HR tablet 03/08/17 [Rx] predniSONE [PredniSONE] 40 mg PO DAILY tablet 03/08/17 [Rx] 3 Allergy/AdvReac Type Severity Reaction Status Date / Time citalopram [From Celexa] Allergy Difficulty Verified 02/01/17 09:53 Breathing amlodipine [From Norvasc] AdvReac Difficulty Verified 02/01/17 09:53 Breathing haloperidol [From Haldol] AdvReac Hallucinati Verified 02/01/17 09:53 ng risperidone AdvReac See Verified 02/01/17 09:53 Comments roflumilast [From Daliresp] AdvReac Difficulty Verified 02/01/17 09:53 Breathing Palliative Care-Exam - Constitutional General appearance: Present: mild distress Palliative Quality Palliative Quality: Screen for Code Status: Yes, Screen for Goals of Care: Yes, Screen for Pain: Yes, If Pain Regimen Started, Initiate Bowel Regimen: Yes, Screen for Nausea/Vomitting: Yes Code Status: 03/08/17 09:45 Resuscitation Status: Active [RES] Routine Comment: Resuscitation Status: DNR-Comfort Care
[2017-03-08] MEDS: Levalbuterol Neb 1.25 MG/3 ML IH SCH ×3 (15:45→21:55)
[2017-03-08] MEDS: hydrALAZINE 25 MG TABLET PO SCH ×2 (17:14→18:14)
[2017-03-08] MEDS: BuPROPion SR (12 HR) 100 MG TABLET PO SCH (20:47)
[2017-03-08] MEDS: Sennosides/Docusate Sodium TABLET PO SCH (20:47)
[2017-03-08] MEDS: *HR* LORazepam 1 MG TABLET PO SCH (20:47)
[2017-03-08] MEDS: *HR* Morphine Sulfate SR (12 HR) 15 MG TABLET.ER PO SCH (20:47)
[2017-03-08] MEDS: Metoprolol XL (24 HR) Succ 50 MG TAB.ER.24H PO SCH (20:47)
[2017-03-08] MEDS: Budesonide/Formoterol 80/4.5 MDI IH SCH (21:56)
[2017-03-09] MEDS: hydrALAZINE 25 MG TABLET PO SCH ×3 (00:33→15:07)
[2017-03-09] MEDS: Levalbuterol Neb 1.25 MG/3 ML IH SCH ×4 (04:11→22:40)
[2017-03-09] MEDS: Diltiazem CD (24hr) 180 MG CAPSULE PO SCH (09:32)
[2017-03-09] MEDS: predniSONE 20 MG TABLET PO SCH (09:32)
[2017-03-09] MEDS: Metoprolol XL (24 HR) Succ 50 MG TAB.ER.24H PO SCH ×2 (09:32→20:42)
[2017-03-09] MEDS: Sennosides/Docusate Sodium TABLET PO SCH ×2 (09:32→20:42)
[2017-03-09] MEDS: Bumetanide 1 MG TABLET PO SCH (09:32)
[2017-03-09] MEDS: Isosorbide MONOnitrate (24 HR) 60 MG TAB.ER.24H PO SCH (09:33)
[2017-03-09] MEDS: BuPROPion SR (12 HR) 100 MG TABLET PO SCH ×2 (09:33→20:42)
[2017-03-09] MEDS: *HR* Morphine Sulfate SR (12 HR) 15 MG TABLET.ER PO SCH ×2 (09:33→20:42)
--- NOTE | 2017-03-09 09:36 | Palliative Progress Note ---
Date of Encounter: 03/09/17 Time of Encounter: 09:30 - Assessment and plan (1) Dyspnea Current Visit: No Status: Acute Assessment and plan: Remains on supportive oxygen. Has not utilized bipap the last 24 hours. Continues with nebulizer treatment and mucinex. Has Roxanol available if needed. Qualifiers: Dyspnea type: unspecified Qualified Code(s): R06.00 - Dyspnea, unspecified (2) Anxiety Current Visit: No Status: Chronic Assessment and plan: Continue PRN Lorazepam with scheduled at bedtime and monitor. She is very anxious this am, but usually settles down with family arriving. I do think she would benefit by having low scheduled dose - will d/w family (3) Generalized pain Current Visit: Yes Status: Acute Assessment and plan: Continue MS Contin and Oxycodone for breakthrough pain. Has Roxanol available if needed as well. She has not utilized any breakthrough medications (4) CHF (congestive heart failure) Current Visit: No Status: Chronic Qualifiers: Congestive heart failure type: systolic Congestive heart failure chronicity : chronic Qualified Code(s): I50.22 - Chronic systolic (congestive) heart failure (5) COPD (chronic obstructive pulmonary disease) Current Visit: No Status: Acute Qualifiers: COPD type: emphysema Emphysema type: panlobular Qualified Code(s): J43.1 - Panlobular emphysema (6) CKD (chronic kidney disease) Current Visit: No Status: Chronic Qualifiers: Chronic kidney disease stage: stage 3 (moderate) Qualified Code(s): N18.3 - Chronic kidney disease, stage 3 (moderate) (7) Lung cancer Current Visit: No Status: Acute Qualifiers: Laterality: unspecified laterality Lung location: unspecified part of lung Qualified Code(s): C34.90 - Malignant neoplasm of unspecified part of unspecified bronchus or lung - Time Spent With Patient Total time spent is greater than 50% in coordination of care (as documented) at patient's floor/unit and/or counseling patient: 25 - 35 minutes - Subjective Interval history: Patient awake and alert. I assisted her with breakfast - ate few bites. ASsisted up in chair - did become very short of breath when getting up. No complaints of pain or discomfort this am. Family has not yet arrived. - Constitutional General appearance: Present: mild distress - Respiratory Additional comments: Course rhonchi throughout all lung morrison. - Cardiovascular Cardiovascular exam: Present: irregular rhythm, +S1, +S2 - GI/Abdominal GI/Abdominal exam: Present: normal bowel sounds, soft - Additional comments: French with light sol urine - Extremities Exam Additional comments: 2-3+ edema bilateral lower extremities - Expanded Upper Extremity Exam General: Present: abrasion - Neurological Exam Neurological exam: Present: alert Additional comments: Oriented to name and place only - Skin Skin exam: Present: dry, warm Palliative Quality Palliative Quality: Screen for Code Status: Yes, Screen for Goals of Care: Yes, Screen for Pain: Yes, If Pain Regimen Started, Initiate Bowel Regimen: Yes, Screen for Nausea/Vomitting: Yes Code Status: 03/08/17 09:45 Resuscitation Status: Active [RES] Routine Comment: Resuscitation Status: DNR-Comfort Care Consult Discharge Plan - Plan Referrals: Lisbeth Salmon, DROP FORGER HELPER [Primary Care Provider] -
[2017-03-09] MEDS: Budesonide/Formoterol 80/4.5 MDI IH SCH ×2 (10:26→22:40)
[2017-03-09] MEDS: Tiotropium 18 MCG inhalation IH SCH (10:30)
[2017-03-09] MEDS: Morphine Oral CONC 5 MG/0.25 ML ORAL.SYG PO PRN (13:16)
[2017-03-09] MEDS: *HR* LORazepam 0.5 MG TABLET PO PRN (13:43)
[2017-03-09] MEDS: *HR* LORazepam 1 MG TABLET PO SCH (20:42)
[2017-03-10] MEDS: hydrALAZINE 25 MG TABLET PO SCH ×3 (01:25→15:57)
[2017-03-10] MEDS: Levalbuterol Neb 1.25 MG/3 ML IH SCH ×4 (03:57→21:12)
[2017-03-10] MEDS: *HR* LORazepam 2 MG/ML VIAL IVP PRN (06:46)
[2017-03-10] MEDS: Diltiazem CD (24hr) 180 MG CAPSULE PO SCH (10:00)
[2017-03-10] MEDS: Sennosides/Docusate Sodium TABLET PO SCH ×2 (10:00→22:10)
[2017-03-10] MEDS: Metoprolol XL (24 HR) Succ 50 MG TAB.ER.24H PO SCH ×2 (10:00→22:10)
[2017-03-10] MEDS: BuPROPion SR (12 HR) 100 MG TABLET PO SCH ×2 (10:00→22:11)
[2017-03-10] MEDS: predniSONE 20 MG TABLET PO SCH (10:00)
[2017-03-10] MEDS: *HR* Morphine Sulfate SR (12 HR) 15 MG TABLET.ER PO SCH ×2 (10:01→22:12)
[2017-03-10] MEDS: Isosorbide MONOnitrate (24 HR) 60 MG TAB.ER.24H PO SCH (10:01)
[2017-03-10] MEDS: Bumetanide 1 MG TABLET PO SCH (10:01)
[2017-03-10] MEDS: Morphine Oral CONC 5 MG/0.25 ML ORAL.SYG PO PRN (10:49)
[2017-03-10] MEDS: Budesonide/Formoterol 80/4.5 MDI IH SCH ×2 (10:58→21:12)
[2017-03-10] MEDS: Tiotropium 18 MCG inhalation IH SCH (10:58)
--- NOTE | 2017-03-10 12:52 | Palliative Progress Note ---
Date of Encounter: 03/10/17 Time of Encounter: 07:40 - Assessment and plan (1) Acute and chronic respiratory failure with hypoxia Current Visit: No Status: Acute Assessment and plan: Breathing is better, however the patient has a great deal of trouble anxiety secondary to shortness of breath. Continue current treatments. e. (2) Constipation Current Visit: No Status: Acute Assessment and plan: Continue bowel regimen continue to observe. Qualifiers: Constipation type: other constipation type Qualified Code(s): K59.09 - Other constipation (3) Counseling regarding advanced care planning and goals of care Current Visit: No Status: Acute Assessment and plan: Patient will be made Comfort Care only. Patient becoming in for general inpatient hospice care her breathing. [facility] hospices justified due to the patient's difficulty with breathing titration of medications. As a comorbidity patient also has lung cancer for which there is no treatment. The patient's primary diagnosis is hypoxemic hypercapnic respiratory failure She continues to qualify for [facility] hospice as the patient's breathing situation is very tenuous. However we are planning now for incision home. The medial be delivered on Monday with the patient going home on Monday. (4) Lung cancer Current Visit: No Status: Acute Assessment and plan: No further treatment is available for this. This is a comorbidity to the patient's long-term lung problems. Qualifiers: Laterality: unspecified laterality Lung location: unspecified part of lung Qualified Code(s): C34.90 - Malignant neoplasm of unspecified part of unspecified bronchus or lung (5) Dyspnea Current Visit: No Status: Acute Assessment and plan: Oxygen, bronchodilators, is to help ease the knee associated with her shortness of breath will be given. Ultimate plan is for the patient return home if she is able to tolerate this. Plan is for discharge on Monday after DME is supplied on Monday. Qualifiers: Dyspnea type: unspecified Qualified Code(s): R06.00 - Dyspnea, unspecified (6) Anxiety Current Visit: No Status: Chronic - Time Spent With Patient Total time spent is greater than 50% in coordination of care (as documented) at patient's floor/unit and/or counseling patient: - Subjective Interval history: Quiet night per nurse's notes. Patient has no complaints of this morning but is using more medication than had been noted. - Constitutional General appearance: Present: no acute distress - Head Head exam: Present: atraumatic, normal inspection - Eye Eye exam: Present: normal appearance - ENT ENT exam: Present: mucous membranes moist - Respiratory Respiratory exam: Present: decreased breath sounds - Cardiovascular Cardiovascular exam: Present: irregular rhythm - GI/Abdominal GI/Abdominal exam: Present: normal bowel sounds, soft. Absent: tenderness - Extremities Exam Extremities exam: Present: pedal edema - Neurological Exam Neurological exam: Present: alert - Psychiatric Psychiatric exam: Absent: agitated, anxious - Skin Skin exam: Present: dry, warm Palliative Quality Palliative Quality: Screen for Code Status: Yes, Screen for Goals of Care: Yes, Screen for Pain: Yes, If Pain Regimen Started, Initiate Bowel Regimen: Yes, Screen for Nausea/Vomitting: Yes Code Status: 03/08/17 09:45 Resuscitation Status: Active [RES] Routine Comment: Resuscitation Status: DNR-Comfort Care Consult Discharge Plan - Plan Referrals: Lisbeth Salmon, ORCHESTRA DIRECTOR [Primary Care Provider] - ([facility] patient no need for follow up)
[2017-03-10] MEDS ORDERED: Leptospermum Honey GEL 1 APPL/5 ML MLS TP ONE (12:56)
[2017-03-10] MEDS ORDERED: Leptospermum Honey Gel 44 ML TUBE TP ONE (13:45)
[2017-03-10] MEDS: *HR* LORazepam 1 MG TABLET PO SCH (22:11)
[2017-03-11] MEDS: hydrALAZINE 25 MG TABLET PO SCH ×4 (01:27→23:57)
[2017-03-11] MEDS: *HR* LORazepam 2 MG/ML VIAL IVP PRN ×2 (02:37→22:55)
[2017-03-11] MEDS: Levalbuterol Neb 1.25 MG/3 ML IH SCH ×4 (04:02→22:33)
--- NOTE | 2017-03-11 07:43 | Palliative Progress Note ---
Date of Encounter: 03/11/17 Time of Encounter: 07:00 - Assessment and plan (1) Acute and chronic respiratory failure with hypoxia Current Visit: No Status: Acute Assessment and plan: Breathing is better, however the patient has a great deal of trouble anxiety secondary to shortness of breath. Continue current treatments. e. No changes this morning (2) Constipation Current Visit: No Status: Acute Assessment and plan: Continue bowel regimen continue to observe. Qualifiers: Constipation type: other constipation type Qualified Code(s): K59.09 - Other constipation (3) Counseling regarding advanced care planning and goals of care Current Visit: No Status: Acute Assessment and plan: Patient will be made Comfort Care only. Patient becoming in for general inpatient hospice care her breathing. [facility] hospices justified due to the patient's difficulty with breathing titration of medications. As a comorbidity patient also has lung cancer for which there is no treatment. The patient's primary diagnosis is hypoxemic hypercapnic respiratory failure She continues to qualify for [facility] hospice as the patient's breathing situation is very tenuous. However we are planning now for incision home. The medial be delivered on Monday with the patient going home on Monday. Changes still planning for discharge on Monday after DME is put in on Monday (4) Lung cancer Current Visit: No Status: Acute Assessment and plan: No further treatment is available for this. This is a comorbidity to the patient's long-term lung problems. Qualifiers: Laterality: unspecified laterality Lung location: unspecified part of lung Qualified Code(s): C34.90 - Malignant neoplasm of unspecified part of unspecified bronchus or lung (5) Dyspnea Current Visit: No Status: Acute Qualifiers: Dyspnea type: unspecified Qualified Code(s): R06.00 - Dyspnea, unspecified (6) Anxiety Current Visit: No Status: Chronic Assessment and plan: Multiple medications are ordered. She has had a lot of needs for medication for anxiety continue to watch. - Time Spent With Patient Total time spent is greater than 50% in coordination of care (as documented) at patient's floor/unit and/or counseling patient: - Subjective Interval history: Quiet night per nurse's notes. Patient has no complaints of this morning but is using more medication than had been noted. Same this morning. Patient is doing fairly well. But is using more medications. - Constitutional General appearance: Present: no acute distress - Respiratory Respiratory exam: Present: decreased breath sounds - Cardiovascular Cardiovascular exam: Present: irregular rhythm - GI/Abdominal GI/Abdominal exam: Present: normal bowel sounds, soft. Absent: tenderness - Extremities Exam Extremities exam: Present: pedal edema - Neurological Exam Neurological exam: Present: alert (Wakens and drifts back to sleep) - Psychiatric Psychiatric exam: Absent: agitated, anxious - Skin Skin exam: Present: dry, warm Palliative Quality Palliative Quality: Screen for Code Status: Yes, Screen for Goals of Care: Yes, Screen for Pain: Yes, If Pain Regimen Started, Initiate Bowel Regimen: Yes, Screen for Nausea/Vomitting: Yes Code Status: 03/08/17 09:45 Resuscitation Status: Active [RES] Routine Comment: Resuscitation Status: DNR-Comfort Care Consult Discharge Plan - Plan Referrals: Lisbeth Salmon, [employer]ATOR [employer] [Primary Care Provider] - ([facility] patient no need for follow up)
[2017-03-11] MEDS: predniSONE 20 MG TABLET PO SCH (10:16)
[2017-03-11] MEDS: *HR* Morphine Sulfate SR (12 HR) 15 MG TABLET.ER PO SCH ×2 (10:17→19:56)
[2017-03-11] MEDS: Bumetanide 1 MG TABLET PO SCH (10:17)
[2017-03-11] MEDS: Sennosides/Docusate Sodium TABLET PO SCH ×2 (10:17→19:56)
[2017-03-11] MEDS: Metoprolol XL (24 HR) Succ 50 MG TAB.ER.24H PO SCH ×2 (10:17→19:56)
[2017-03-11] MEDS: *HR* LORazepam 0.5 MG TABLET PO PRN (10:17)
[2017-03-11] MEDS: Isosorbide MONOnitrate (24 HR) 60 MG TAB.ER.24H PO SCH (10:18)
[2017-03-11] MEDS: Diltiazem CD (24hr) 180 MG CAPSULE PO SCH (10:18)
[2017-03-11] MEDS: BuPROPion SR (12 HR) 100 MG TABLET PO SCH ×2 (10:19→19:56)
[2017-03-11] MEDS: Budesonide/Formoterol 80/4.5 MDI IH SCH ×2 (10:43→22:34)
[2017-03-11] MEDS: Tiotropium 18 MCG inhalation IH SCH (10:43)
[2017-03-11] MEDS: *HR* LORazepam 1 MG TABLET PO SCH (19:56)
[2017-03-11] MEDS: Morphine Oral CONC 5 MG/0.25 ML ORAL.SYG PO PRN (20:15)
[2017-03-11] MEDS: Haloperidol Lactate 5 MG/ML VIAL IVP PRN (23:56)
[2017-03-12] MEDS: Levalbuterol Neb 1.25 MG/3 ML IH SCH ×4 (04:10→23:45)
--- NOTE | 2017-03-12 07:52 | Palliative Progress Note ---
Date of Encounter: 03/12/17 Time of Encounter: 07:20 - Assessment and plan (1) Acute and chronic respiratory failure with hypoxia Current Visit: No Status: Acute Assessment and plan: She is doing well this morning, however last night she did have a bit of a problem. I believe that it doing some Ativan may be helpful, however this has tended to make her a little zonked. 4 we have held off. We will watch carefully today. It may be necessary to go ahead and do this stress with family further. (2) Constipation Current Visit: No Status: Acute Assessment and plan: Continue bowel regimen bowels are now moving. Qualifiers: Constipation type: other constipation type Qualified Code(s): K59.09 - Other constipation (3) Counseling regarding advanced care planning and goals of care Current Visit: No Status: Acute Assessment and plan: Patient will be made Comfort Care only. Patient becoming in for general inpatient hospice care her breathing. [facility] hospices justified due to the patient's difficulty with breathing titration of medications. As a comorbidity patient also has lung cancer for which there is no treatment. The patient's primary diagnosis is hypoxemic hypercapnic respiratory failure She continues to qualify for [facility] hospice as the patient's breathing situation is very tenuous. However we are planning now for incision home. The medial be delivered on Monday with the patient going home on Monday. Changes still planning for discharge on Monday after DME is put in on Monday (4) Lung cancer Current Visit: No Status: Acute Assessment and plan: No further treatment is available for this. This is a comorbidity to the patient's long-term lung problems. Qualifiers: Laterality: unspecified laterality Lung location: unspecified part of lung Qualified Code(s): C34.90 - Malignant neoplasm of unspecified part of unspecified bronchus or lung (5) Dyspnea Current Visit: No Status: Acute Assessment and plan: Oxygen, bronchodilators, is to help ease the knee associated with her shortness of breath will be given. Ultimate plan is for the patient return home if she is able to tolerate this. Plan is for discharge on Monday after DME is supplied on Monday. Patient had a great deal of anxiety and agitation last night. This did calm down with medications. I believe that this is a big part of her problem he gets a little agitated than she gets more short of breath and the and this works snowballs. Continue to watch carefully may need to have more scheduled medications. He did discuss further with family. Qualifiers: Dyspnea type: unspecified Qualified Code(s): R06.00 - Dyspnea, unspecified (6) Anxiety Current Visit: No Status: Chronic Assessment and plan: Multiple medications are ordered. She has had a lot of needs for medication for anxiety continue to watch. May need to schedule medications. We will continue to watch carefully and discussed with family. - Time Spent With Patient Total time spent is greater than 50% in coordination of care (as documented) at patient's floor/unit and/or counseling patient: - Subjective Interval history: Patient had difficulty last night around midnight. Patient's finally were helpful. Morning the patient wishes to "get up but when I ask her she needs to get up for she just keeps perseverating on she needs to get up. Suspect she probably needs to have her Ativan on a more regular basis. Family has requested to keep that at a minimum. She is in no distress this morning. - Constitutional General appearance: Present: no acute distress - Head Head exam: Present: atraumatic, normal inspection - Eye Eye exam: Present: normal appearance - Neck Neck exam: Present: normal inspection - Respiratory Respiratory exam: Present: decreased breath sounds - Cardiovascular Cardiovascular exam: Present: irregular rhythm - GI/Abdominal GI/Abdominal exam: Present: normal bowel sounds, soft. Absent: tenderness - Extremities Exam Extremities exam: Present: pedal edema. Absent: normal inspection, tenderness - Neurological Exam Neurological exam: Present: alert - Psychiatric Psychiatric exam: Absent: agitated, anxious (But did have some around midnight.) - Skin Skin exam: Present: dry, warm Palliative Quality Palliative Quality: Screen for Code Status: Yes, Screen for Goals of Care: Yes, Screen for Pain: Yes, If Pain Regimen Started, Initiate Bowel Regimen: Yes, Screen for Nausea/Vomitting: Yes Code Status: 03/08/17 09:45 Resuscitation Status: Active [RES] Routine Comment: Resuscitation Status: DNR-Comfort Care Consult Discharge Plan - Plan Referrals: Lisbeth Salmon, RADIATION PHYSICIST [Primary Care Provider] - ([facility] patient no need for follow up)
[2017-03-12] MEDS: Morphine Oral CONC 5 MG/0.25 ML ORAL.SYG PO PRN ×2 (10:08→18:55)
[2017-03-12] MEDS: Diltiazem CD (24hr) 180 MG CAPSULE PO SCH (10:18)
[2017-03-12] MEDS: Bumetanide 1 MG TABLET PO SCH (10:18)
[2017-03-12] MEDS: BuPROPion SR (12 HR) 100 MG TABLET PO SCH ×2 (10:18→20:40)
[2017-03-12] MEDS: Isosorbide MONOnitrate (24 HR) 60 MG TAB.ER.24H PO SCH (10:19)
[2017-03-12] MEDS: Sennosides/Docusate Sodium TABLET PO SCH ×2 (10:19→20:41)
[2017-03-12] MEDS: predniSONE 20 MG TABLET PO SCH (10:19)
[2017-03-12] MEDS: *HR* Morphine Sulfate SR (12 HR) 15 MG TABLET.ER PO SCH ×2 (10:19→20:41)
[2017-03-12] MEDS: Metoprolol XL (24 HR) Succ 50 MG TAB.ER.24H PO SCH ×2 (10:19→20:40)
[2017-03-12] MEDS: hydrALAZINE 25 MG TABLET PO SCH ×2 (10:19→17:09)
[2017-03-12] MEDS: *HR* LORazepam 2 MG/ML VIAL IVP PRN (10:20)
[2017-03-12] MEDS: Tiotropium 18 MCG inhalation IH SCH (10:22)
[2017-03-12] MEDS: Budesonide/Formoterol 80/4.5 MDI IH SCH ×2 (10:22→23:44)
[2017-03-12] MEDS: *HR* LORazepam 1 MG TABLET PO SCH (20:40)
[2017-03-13] MEDS: hydrALAZINE 25 MG TABLET PO SCH ×3 (00:53→17:07)
[2017-03-13] MEDS: Levalbuterol Neb 1.25 MG/3 ML IH SCH ×5 (04:23→22:03)
[2017-03-13] MEDS: *HR* LORazepam 2 MG/ML VIAL IVP PRN ×4 (04:26→22:21)
[2017-03-13] MEDS: *HR* Morphine Sulfate SR (12 HR) 15 MG TABLET.ER PO SCH ×2 (09:05→22:14)
[2017-03-13] MEDS: BuPROPion SR (12 HR) 100 MG TABLET PO SCH ×2 (09:06→22:14)
[2017-03-13] MEDS: Bumetanide 1 MG TABLET PO SCH (09:06)
[2017-03-13] MEDS: Sennosides/Docusate Sodium TABLET PO SCH ×2 (09:06→22:14)
[2017-03-13] MEDS: predniSONE 20 MG TABLET PO SCH (09:07)
--- NOTE | 2017-03-13 09:27 | Palliative Progress Note ---
Date of Encounter: 03/13/17 Time of Encounter: 09:30 - Assessment and plan (1) Dyspnea Current Visit: No Status: Acute Assessment and plan: Stable at this time. Roxanol utilzed x2 last 24 hours. Continues with supportive oxygen/aerosols/mucinex Qualifiers: Dyspnea type: unspecified Qualified Code(s): R06.00 - Dyspnea, unspecified (2) Anxiety Current Visit: No Status: Chronic Assessment and plan: Utilized Lorazepam x3 last 24 hours. Continue (3) Generalized pain Current Visit: Yes Status: Acute Assessment and plan: Continue MS Contin. Roxanol for breakthrough (4) CHF (congestive heart failure) Current Visit: No Status: Chronic Qualifiers: Congestive heart failure type: systolic Congestive heart failure chronicity : chronic Qualified Code(s): I50.22 - Chronic systolic (congestive) heart failure (5) COPD (chronic obstructive pulmonary disease) Current Visit: No Status: Acute Qualifiers: COPD type: emphysema Emphysema type: panlobular Qualified Code(s): J43.1 - Panlobular emphysema (6) CKD (chronic kidney disease) Current Visit: No Status: Chronic Qualifiers: Chronic kidney disease stage: stage 3 (moderate) Qualified Code(s): N18.3 - Chronic kidney disease, stage 3 (moderate) (7) Lung cancer Current Visit: No Status: Acute Qualifiers: Laterality: unspecified laterality Lung location: unspecified part of lung Qualified Code(s): C34.90 - Malignant neoplasm of unspecified part of unspecified bronchus or lung - Time Spent With Patient Total time spent is greater than 50% in coordination of care (as documented) at patient's floor/unit and/or counseling patient: 25 - 35 minutes - Subjective Interval history: Patient awake but appears drowsy. Restless and yelling this am per staff. No family present. + BM 03/11. She is having a difficult time getting large oral pills done - Constitutional General appearance: Present: no acute distress - Respiratory Additional comments: Few course scattered rhonchi. Remains on supportive oxygen. - Cardiovascular Cardiovascular exam: Present: irregular rhythm, tachycardia - GI/Abdominal GI/Abdominal exam: Present: normal bowel sounds, soft - Extremities Exam Additional comments: 2+ edema bilateral lower extremities - Neurological Exam Neurological exam: Present: alert, altered - Skin Skin exam: Present: dry, warm Palliative Quality Palliative Quality: Screen for Code Status: Yes, Screen for Goals of Care: Yes, Screen for Pain: Yes, If Pain Regimen Started, Initiate Bowel Regimen: Yes, Screen for Nausea/Vomitting: Yes Code Status: 03/08/17 09:45 Resuscitation Status: Active [RES] Routine Comment: Resuscitation Status: DNR-Comfort Care Consult Discharge Plan - Plan Referrals: Lisbeth Salmon, CALL CENTER NURSE [Primary Care Provider] - (GIP patient no need for follow up)
[2017-03-13] MEDS: Morphine Oral CONC 5 MG/0.25 ML ORAL.SYG PO PRN ×3 (10:16→22:13)
[2017-03-13] MEDS: Budesonide/Formoterol 80/4.5 MDI IH SCH ×2 (10:35→22:04)
[2017-03-13] MEDS: Tiotropium 18 MCG inhalation IH SCH ×2 (10:36→10:42)
[2017-03-13] MEDS: Isosorbide MONOnitrate (24 HR) 60 MG TAB.ER.24H PO SCH (11:39)
[2017-03-13] MEDS: Metoprolol XL (24 HR) Succ 50 MG TAB.ER.24H PO SCH ×2 (11:39→22:14)
[2017-03-13] MEDS: Diltiazem CD (24hr) 180 MG CAPSULE PO SCH (11:39)
[2017-03-13] MEDS: *HR* LORazepam 0.5 MG TABLET PO PRN (14:51)
[2017-03-13] MEDS: *HR* LORazepam 1 MG TABLET PO SCH (22:13)
[2017-03-13] MEDS: Haloperidol Lactate 5 MG/ML VIAL IVP PRN (22:53)
[2017-03-14] MEDS: hydrALAZINE 25 MG TABLET PO SCH ×3 (00:46→18:21)
[2017-03-14] MEDS: Levalbuterol Neb 1.25 MG/3 ML IH SCH ×4 (04:02→23:01)
[2017-03-14] MEDS: Morphine Oral CONC 5 MG/0.25 ML ORAL.SYG PO PRN ×4 (04:39→23:04)
[2017-03-14] MEDS: *HR* LORazepam 2 MG/ML VIAL IVP PRN ×7 (04:40→22:45)
[2017-03-14] MEDS: Diltiazem CD (24hr) 180 MG CAPSULE PO SCH (09:00)
[2017-03-14] MEDS: Isosorbide MONOnitrate (24 HR) 60 MG TAB.ER.24H PO SCH (09:00)
[2017-03-14] MEDS: Bumetanide 1 MG TABLET PO SCH (09:00)
[2017-03-14] MEDS: Metoprolol XL (24 HR) Succ 50 MG TAB.ER.24H PO SCH ×2 (09:01→21:20)
[2017-03-14] MEDS: Sennosides/Docusate Sodium TABLET PO SCH ×2 (09:01→21:20)
[2017-03-14] MEDS: predniSONE 20 MG TABLET PO SCH (09:01)
[2017-03-14] MEDS: *HR* Morphine Sulfate SR (12 HR) 15 MG TABLET.ER PO SCH ×2 (09:01→21:20)
[2017-03-14] MEDS: BuPROPion SR (12 HR) 100 MG TABLET PO SCH ×2 (09:01→21:20)
--- NOTE | 2017-03-14 09:05 | Palliative Progress Note ---
Date of Encounter: 03/14/17 Time of Encounter: 08:50 - Assessment and plan (1) Dyspnea Current Visit: No Status: Acute Assessment and plan: Continue current management. Roxanol for breakthrough dyspnea. Has received x3 last 24 hours Qualifiers: Dyspnea type: unspecified Qualified Code(s): R06.00 - Dyspnea, unspecified (2) Anxiety Current Visit: No Status: Chronic Assessment and plan: Continue Lorazepam. Has received x3 last 24 hours (3) Generalized pain Current Visit: Yes Status: Acute Assessment and plan: Continue MS Contin and monitor. (4) Goals of care, counseling/discussion Current Visit: Yes Status: Acute Assessment and plan: Patient daughter has decided she is unable to provide this level of care for her at home, and desires placement. Liseth Fabian, utilities ground worker discussing with daughters. (5) CHF (congestive heart failure) Current Visit: No Status: Chronic Qualifiers: Congestive heart failure type: systolic Congestive heart failure chronicity : chronic Qualified Code(s): I50.22 - Chronic systolic (congestive) heart failure (6) COPD (chronic obstructive pulmonary disease) Current Visit: No Status: Acute Qualifiers: COPD type: emphysema Emphysema type: panlobular Qualified Code(s): J43.1 - Panlobular emphysema (7) CKD (chronic kidney disease) Current Visit: No Status: Chronic Qualifiers: Chronic kidney disease stage: stage 3 (moderate) Qualified Code(s): N18.3 - Chronic kidney disease, stage 3 (moderate) (8) Lung cancer Current Visit: No Status: Acute Qualifiers: Laterality: unspecified laterality Lung location: unspecified part of lung Qualified Code(s): C34.90 - Malignant neoplasm of unspecified part of unspecified bronchus or lung - Time Spent With Patient Total time spent is greater than 50% in coordination of care (as documented) at patient's floor/unit and/or counseling patient: - Subjective Interval history: Patient sleeping sitting up in bed. Awakens with stimulation but drifts back to sleep. Did have anxiety medication this am. She appears weaker, resp appear slightly more labored than yesterday. - Constitutional General appearance: Present: mild distress - Respiratory Additional comments: Course rhonchi throughout all lung morrison - Cardiovascular Cardiovascular exam: Present: irregular rhythm - GI/Abdominal GI/Abdominal exam: Present: normal bowel sounds, soft Additional comments: Umbilical hernia remains - Additional comments: French with light sol urine - Extremities Exam Additional comments: 3+ edema bilateral lower extremities - Neurological Exam Neurological exam: Present: altered - Skin Skin exam: Present: dry, warm Palliative Quality Palliative Quality: Screen for Code Status: Yes, Screen for Goals of Care: Yes, Screen for Pain: Yes, If Pain Regimen Started, Initiate Bowel Regimen: Yes, Screen for Nausea/Vomitting: Yes Code Status: 03/08/17 09:45 Resuscitation Status: Active [RES] Routine Comment: Resuscitation Status: DNR-Comfort Care Consult Discharge Plan - Plan Referrals: Lisbeth Salmon, MEDICAL PRACTICE ASSISTANT [Primary Care Provider] - (GIP patient no need for follow up)
[2017-03-14] MEDS: Budesonide/Formoterol 80/4.5 MDI IH SCH ×2 (10:59→23:01)
[2017-03-14] MEDS: Tiotropium 18 MCG inhalation IH SCH (11:00)
[2017-03-14] MEDS ORDERED: *HR* LORazepam 2 MG/ML VIAL ONE (20:42)
[2017-03-14] MEDS: *HR* LORazepam 1 MG TABLET PO SCH (21:20)
[2017-03-15] MEDS: Morphine Oral CONC 5 MG/0.25 ML ORAL.SYG PO PRN ×3 (00:58→08:30)
[2017-03-15] MEDS: hydrALAZINE 25 MG TABLET PO SCH ×3 (02:46→16:18)
[2017-03-15] MEDS: Levalbuterol Neb 1.25 MG/3 ML IH SCH ×4 (04:19→22:58)
[2017-03-15] MEDS: Diltiazem CD (24hr) 180 MG CAPSULE PO SCH (08:26)
[2017-03-15] MEDS: Isosorbide MONOnitrate (24 HR) 60 MG TAB.ER.24H PO SCH (08:26)
[2017-03-15] MEDS: Bumetanide 1 MG TABLET PO SCH (08:26)
[2017-03-15] MEDS: predniSONE 20 MG TABLET PO SCH (08:27)
[2017-03-15] MEDS: Sennosides/Docusate Sodium TABLET PO SCH ×2 (08:27→23:03)
[2017-03-15] MEDS: *HR* Morphine Sulfate SR (12 HR) 15 MG TABLET.ER PO SCH (08:27)
[2017-03-15] MEDS: BuPROPion SR (12 HR) 100 MG TABLET PO SCH ×2 (08:27→23:03)
[2017-03-15] MEDS: Metoprolol XL (24 HR) Succ 50 MG TAB.ER.24H PO SCH ×2 (08:27→23:03)
[2017-03-15] MEDS: *HR* LORazepam 2 MG/ML VIAL IVP PRN ×4 (08:36→22:10)
[2017-03-15] MEDS: Morphine Oral CONC 5 MG/0.25 ML ORAL.SYG PO SCH ×3 (09:09→22:15)
--- NOTE | 2017-03-15 09:09 | Palliative Progress Note ---
Date of Encounter: 03/15/17 Time of Encounter: 07:30 - Assessment and plan (1) Acute and chronic respiratory failure with hypoxia Current Visit: No Status: Acute Assessment and plan: She is doing well this morning, however last night she did have a bit of a problem. I have gone ahead now and schedule the Ativan. So scheduled in all which will help with her breathing as well as her back pain. (2) Constipation Current Visit: No Status: Acute Assessment and plan: Continue bowel regimen no BM recorded since the . We will scheduled suppositories. Qualifiers: Constipation type: other constipation type Qualified Code(s): K59.09 - Other constipation (3) Counseling regarding advanced care planning and goals of care Current Visit: No Status: Acute Assessment and plan: Patient will be made Comfort Care only. Patient becoming in for general inpatient hospice care her breathing. [facility] hospices justified due to the patient's difficulty with breathing titration of medications. As a comorbidity patient also has lung cancer for which there is no treatment. The patient's primary diagnosis is hypoxemic hypercapnic respiratory failure Testing medications today so therefore this will hold up the discharge for today. Plan is for the [facility]. plan for discharge tomorrow. (4) Lung cancer Current Visit: No Status: Acute Assessment and plan: No further treatment is available for this. This is a comorbidity to the patient's long-term lung problems. Qualifiers: Laterality: unspecified laterality Lung location: unspecified part of lung Qualified Code(s): C34.90 - Malignant neoplasm of unspecified part of unspecified bronchus or lung (5) Dyspnea Current Visit: No Status: Acute Assessment and plan: Oxygen, bronchodilators, is to help ease the knee associated with her shortness of breath will be given. Ultimate plan is for the patient return home if she is able to tolerate this. Have scheduled medications now we will continue to watch. Plan for discharge probably tomorrow to [facility]. Qualifiers: Dyspnea type: unspecified Qualified Code(s): R06.00 - Dyspnea, unspecified (6) Anxiety Current Visit: No Status: Chronic Assessment and plan: Multiple medications are ordered. She has had a lot of needs for medication for anxiety continue to watch. I have now scheduled medications. Continue to watch. - Time Spent With Patient Total time spent is greater than 50% in coordination of care (as documented) at patient's floor/unit and/or counseling patient: - Subjective Interval history: Patient had difficulty last night around midnight. Patient's vacations were helpful, however they did need to be adjusted. This morning usually patient was comfortable but then is seeming very anxious have now scheduled medications patient is not taking by mouth very well at all about the patient's chronic pain from her chemotherapy compression fracture. Therefore I have told medication for anxiety as well as for pain eating the when necessary's available. We will hold up patient's discharge for today. - Constitutional General appearance: Present: no acute distress - Head Head exam: Present: atraumatic, normal inspection - Eye Eye exam: Present: normal appearance - ENT ENT exam: Present: mucous membranes moist - Respiratory Respiratory exam: Present: decreased breath sounds - Cardiovascular Cardiovascular exam: Present: irregular rhythm - GI/Abdominal GI/Abdominal exam: Present: normal bowel sounds, soft. Absent: tenderness - Extremities Exam Extremities exam: Present: pedal edema. Absent: tenderness - Neurological Exam Neurological exam: Present: altered - Psychiatric Psychiatric exam: Present: agitated, anxious - Skin Skin exam: Present: dry, warm Palliative Quality Palliative Quality: Screen for Code Status: Yes, Screen for Goals of Care: Yes, Screen for Pain: Yes, If Pain Regimen Started, Initiate Bowel Regimen: Yes, Screen for Nausea/Vomitting: Yes Code Status: 03/08/17 09:45 Resuscitation Status: Active [RES] Routine Comment: Resuscitation Status: DNR-Comfort Care Consult Discharge Plan - Plan Referrals: Lisbeth Salmon, ETCHER AIRCRAFT [Primary Care Provider] - (GIP patient no need for follow up)
[2017-03-15] MEDS: Budesonide/Formoterol 80/4.5 MDI IH SCH ×2 (11:06→22:53)
[2017-03-15] MEDS: Tiotropium 18 MCG inhalation IH SCH (11:06)
[2017-03-15] MEDS: *HR* LORazepam Oral Conc 2 MG/ML SL SCH ×2 (12:16→17:41)
[2017-03-16] MEDS: hydrALAZINE 25 MG TABLET PO SCH ×3 (00:49→16:02)
[2017-03-16] MEDS: *HR* LORazepam Oral Conc 2 MG/ML SL SCH ×6 (00:49→20:46)
[2017-03-16] MEDS: Morphine Oral CONC 5 MG/0.25 ML ORAL.SYG PO SCH ×4 (02:55→20:46)
[2017-03-16] MEDS: Levalbuterol Neb 1.25 MG/3 ML IH SCH ×4 (04:02→22:46)
[2017-03-16] MEDS ORDERED: Scopolamine Patch 1.5 MG PATCH.TD72 TD SCH (07:45)
[2017-03-16 07:48] VITALS: BP 144/75
[2017-03-16] MEDS: Bumetanide 1 MG TABLET PO SCH (08:58)
[2017-03-16] MEDS: Atropine Sulfate 1% 40 DROP/2 ML BOTTLE SL PRN (08:58)
[2017-03-16] MEDS: predniSONE 20 MG TABLET PO SCH (08:58)
[2017-03-16] MEDS: Diltiazem CD (24hr) 180 MG CAPSULE PO SCH (08:58)
[2017-03-16] MEDS: Isosorbide MONOnitrate (24 HR) 60 MG TAB.ER.24H PO SCH (08:58)
[2017-03-16] MEDS: Metoprolol XL (24 HR) Succ 50 MG TAB.ER.24H PO SCH ×2 (08:59→20:47)
[2017-03-16] MEDS: BuPROPion SR (12 HR) 100 MG TABLET PO SCH ×2 (08:59→20:47)
[2017-03-16] MEDS: Sennosides/Docusate Sodium TABLET PO SCH ×2 (08:59→20:47)
[2017-03-16] MEDS: *HR* LORazepam 2 MG/ML VIAL IVP PRN (09:25)
[2017-03-16] MEDS: Budesonide/Formoterol 80/4.5 MDI IH SCH ×2 (09:57→21:01)
[2017-03-16] MEDS: Tiotropium 18 MCG inhalation IH SCH (09:58)
--- NOTE | 2017-03-16 09:59 | Palliative Progress Note ---
Date of Encounter: 03/16/17 Time of Encounter: 07:25 - Assessment and plan (1) Acute and chronic respiratory failure with hypoxia Current Visit: No Status: Acute Assessment and plan: She is doing well this morning, however last night she did have a bit of a problem. I have gone ahead now and schedule the Ativan. So scheduled in all which will help with her breathing as well as her back pain. No Changes today. (2) Constipation Current Visit: No Status: Acute Assessment and plan: Continue bowel regimen no BM recorded since the . We will scheduled suppositories. These will begin tonight. Continue to watch Qualifiers: Constipation type: other constipation type Qualified Code(s): K59.09 - Other constipation (3) Counseling regarding advanced care planning and goals of care Current Visit: No Status: Acute Assessment and plan: Patient will be made Comfort Care only. Patient becoming in for general inpatient hospice care her breathing. [facility] hospices justified due to the patient's difficulty with breathing titration of medications. As a comorbidity patient also has lung cancer for which there is no treatment. The patient's primary diagnosis is hypoxemic hypercapnic respiratory failure Changing medications today so therefore this will hold up the discharge for today. Plan is for the patient to go to [facility] they will evaluate her today. Probable discharge tomorrow. (4) Lung cancer Current Visit: No Status: Acute Assessment and plan: No further treatment is available for this. This is a comorbidity to the patient's long-term lung problems. Qualifiers: Laterality: unspecified laterality Lung location: unspecified part of lung Qualified Code(s): C34.90 - Malignant neoplasm of unspecified part of unspecified bronchus or lung (5) Dyspnea Current Visit: No Status: Acute Assessment and plan: Oxygen, bronchodilators, is to help ease the knee associated with her shortness of breath will be given. Ultimate plan is for the patient return home if she is able to tolerate this. Have scheduled medications now we will continue to watch. Plan for discharge probably tomorrow to [facility]. They are going to evaluate the patient today. Hospice is keeping me posted on this. Qualifiers: Dyspnea type: unspecified Qualified Code(s): R06.00 - Dyspnea, unspecified (6) Anxiety Current Visit: No Status: Chronic Assessment and plan: Multiple medications are ordered. She has had a lot of needs for medication for anxiety continue to watch. I have now scheduled medications. Continue to watch. - Time Spent With Patient Total time spent is greater than 50% in coordination of care (as documented) at patient's floor/unit and/or counseling patient: - Subjective Interval history: Patient less responsive this morning. Also having some difficulty with secretions. Not evaluated by correction yesterday. This should take place today. I am adding an atropine drops and a scopolamine patch will hold up discharge today to make sure the patient is stable prior to return to correction assuming the correction Mobile taker.. - Constitutional General appearance: Present: no acute distress - Eye Eye exam: Present: normal appearance - Neck Neck exam: Present: normal inspection - Respiratory Respiratory exam: Present: decreased breath sounds, rhonchi (Lots of transmitted upper airway noise) - Cardiovascular Cardiovascular exam: Present: irregular rhythm, tachycardia - Extremities Exam Extremities exam: Present: pedal edema. Absent: tenderness - Neurological Exam Neurological exam: Present: altered. Absent: alert, oriented X3 - Psychiatric Psychiatric exam: Absent: agitated, anxious (Did have some difficulty with that last night her medications do appear to be appropriate) - Skin Skin exam: Present: dry, warm Palliative Quality Palliative Quality: Screen for Code Status: Yes, Screen for Goals of Care: Yes, Screen for Pain: Yes, If Pain Regimen Started, Initiate Bowel Regimen: Yes, Screen for Nausea/Vomitting: Yes Code Status: 03/08/17 09:45 Resuscitation Status: Active [RES] Routine Comment: Resuscitation Status: DNR-Comfort Care Consult Discharge Plan - Plan Referrals: Lisbeth Salmon, FREELANCE ART DIRECTOR [Primary Care Provider] - (GIP patient no need for follow up)
[2017-03-16] MEDS: Morphine Oral CONC 5 MG/0.25 ML ORAL.SYG PO PRN (12:16)
[2017-03-16] MEDS ORDERED: Bisacodyl 10 MG RECTAL SUPPOSITORY RC SCH (21:00)
[2017-03-17] MEDS: *HR* LORazepam Oral Conc 2 MG/ML SL SCH ×3 (00:33→07:40)
[2017-03-17] MEDS: hydrALAZINE 25 MG TABLET PO SCH ×3 (00:33→10:17)
[2017-03-17] MEDS: Morphine Oral CONC 5 MG/0.25 ML ORAL.SYG PO SCH ×2 (02:37→07:40)
[2017-03-17] MEDS: Atropine Sulfate 1% 40 DROP/2 ML BOTTLE SL PRN ×2 (02:38→10:27)
[2017-03-17] MEDS: Levalbuterol Neb 1.25 MG/3 ML IH SCH ×2 (03:47→09:57)
[2017-03-17] MEDS: Sennosides/Docusate Sodium TABLET PO SCH (07:29)
[2017-03-17] MEDS: Isosorbide MONOnitrate (24 HR) 60 MG TAB.ER.24H PO SCH (07:29)
[2017-03-17] MEDS: predniSONE 20 MG TABLET PO SCH (07:29)
[2017-03-17] MEDS: Bumetanide 1 MG TABLET PO SCH (07:29)
[2017-03-17] MEDS: Diltiazem CD (24hr) 180 MG CAPSULE PO SCH (07:29)
[2017-03-17] MEDS: BuPROPion SR (12 HR) 100 MG TABLET PO SCH (07:30)
[2017-03-17] MEDS: Metoprolol XL (24 HR) Succ 50 MG TAB.ER.24H PO SCH (07:30)
--- NOTE | 2017-03-17 07:36 | Palliative Progress Note ---
Date of Encounter: 03/17/17 Time of Encounter: 07:10 - Assessment and plan (1) Acute and chronic respiratory failure with hypoxia Current Visit: No Status: Acute Assessment and plan: She is having more irregular breathing today, with now. Periods although short of apnea. Bleed the patient may well be transitioning. She is certainly less responsive Acacia actually non-responsive this morning. And nonresponsive to family either. We will continue to watch (2) Constipation Current Visit: No Status: Acute Assessment and plan: Continue bowel regimen no BM recorded since the . We will scheduled suppositories. These will begin tonight. Continue to watch No Changes today anticipated. Qualifiers: Constipation type: other constipation type Qualified Code(s): K59.09 - Other constipation (3) Counseling regarding advanced care planning and goals of care Current Visit: No Status: Acute Assessment and plan: Patient will be made Comfort Care only. Patient becoming in for general inpatient hospice care her breathing. [facility] hospices justified due to the patient's difficulty with breathing titration of medications. As a comorbidity patient also has lung cancer for which there is no treatment. The patient's primary diagnosis is hypoxemic hypercapnic respiratory failure Changing medications today so therefore this will hold up the discharge for today. [facility] come in late yesterday and evaluate the patient per the family. They do not know the results of that evaluation. I will discuss today with hospice. His were made yesterday in educations patient's breathing has come more irregular periods of apnea I believe that she may be transitioning at this time. I believe he may still require more care in a long-term can provide at this particular moment in time I believe we should give the patient the weekend and then plan for discharge if she survives the weekend on Monday. Assuming [facility] has approved and has a bed. (4) Lung cancer Current Visit: No Status: Acute Assessment and plan: No further treatment is available for this. This is a comorbidity to the patient's long-term lung problems. Qualifiers: Laterality: unspecified laterality Lung location: unspecified part of lung Qualified Code(s): C34.90 - Malignant neoplasm of unspecified part of unspecified bronchus or lung (5) Dyspnea Current Visit: No Status: Acute Assessment and plan: Oxygen, bronchodilators, is to help ease the knee associated with her shortness of breath will be given. Ultimate plan is for the patient return home if she is able to tolerate this. Have scheduled medications now we will continue to watch. Qualifiers: Dyspnea type: unspecified Qualified Code(s): R06.00 - Dyspnea, unspecified (6) Anxiety Current Visit: No Status: Chronic Assessment and plan: Multiple medications are ordered. She has had a lot of needs for medication for anxiety continue to watch. I have now scheduled medications. Continue to watch. The schedule meds are all hold if sedated - Time Spent With Patient Total time spent is greater than 50% in coordination of care (as documented) at patient's floor/unit and/or counseling patient: - Subjective Interval history: Patient non-responsive this morning. Also having some more difficulty with secretions. Per family patient's also having short apneic spells now. Breathing is becoming more irregular. She home has been out to evaluate the patient, however the family does not know with the results of that evaluation are. We will discuss this further with hospice today. I believe the patient may be transitioning and therefore I am not comfortable with the patient going to the long-term at this time. We will plan for discharge on Monday. - Constitutional General appearance: Present: no acute distress - Head Head exam: Present: atraumatic, normal inspection - Eye Eye exam: Present: normal appearance - ENT ENT exam: Present: mucous membranes moist - Respiratory Respiratory exam: Present: decreased breath sounds, rhonchi (Transmitted upper airway noise) - Cardiovascular Cardiovascular exam: Present: irregular rhythm - GI/Abdominal GI/Abdominal exam: Present: hypoactive bowel sounds, soft. Absent: tenderness - Extremities Exam Extremities exam: Present: pedal edema. Absent: tenderness - Neurological Exam Neurological exam: Present: altered - Psychiatric Psychiatric exam: Absent: agitated, anxious - Skin Skin exam: Present: dry, warm Palliative Quality Palliative Quality: Screen for Code Status: Yes, Screen for Goals of Care: Yes, Screen for Pain: Yes, If Pain Regimen Started, Initiate Bowel Regimen: Yes, Screen for Nausea/Vomitting: Yes Code Status: 03/08/17 09:45 Resuscitation Status: Active [RES] Routine Comment: Resuscitation Status: DNR-Comfort Care Consult Discharge Plan - Plan Referrals: Lisbeth Salmon, VINE PRUNER [Primary Care Provider] - (GIP patient no need for follow up)
[2017-03-17] MEDS: *HR* LORazepam Oral Conc 2 MG/ML SL PRN ×2 (09:14→10:21)
[2017-03-17] MEDS: Morphine Oral CONC 5 MG/0.25 ML ORAL.SYG PO PRN ×2 (09:15→10:21)
[2017-03-17] MEDS: Tiotropium 18 MCG inhalation IH SCH (09:56)
[2017-03-17] MEDS: Budesonide/Formoterol 80/4.5 MDI IH SCH (09:57)
--- NOTE | 2017-03-17 10:51 | Death Note ---
Discharge Sum: Summary - Date and Time Date of admission: 03/08/17 13:53 Date of : 03/17/17 Time of : 10:39 - Summary Details: The patient was on the general hospice service for symptom control related to her dyspnea. Patient's symptoms were addressed aggressively. She will he she was quite stable, however over the last 72 hours she has a very marked change in her breathing patterns as well as Ainge in mental status. He passed quietly and comfortably with family at bedside at 1039 this morning. She was a former smoker Cause of is respiratory failure for several days to weeks secondary to COPD for years Comorbidities lung cancer, CHF, CAD and renal failure. - Additional Data Confirmation of as documented by pronouncing clinician: no pulse, no respirations, no heart sounds Family: at bedside Attending/PCP notified?: Yes Attending physician: Levi Singh MD Was code activated?: No Autopsy requested?: No claim examiner notified?: No Organ bank notified?: Yes Advance directives: Yes Hospice patient?: Yes Discharge Sum: Diag - PCOD Probable Cause of : Respiratory arrest Discharge Sum: Prov - Provider Primary care physician: Lisbeth Salmon CNP Consults: 03/08/17 09:45 Consult to Palliative Care [CONS] Routine Comment: Consulting Provider: Palliative Care Beth Reason for Consult: inpatient hospie Call Completed: No
[2017-03-17] MEDS ORDERED: Bisacodyl 10 MG RECTAL SUPPOSITORY RC PRN (21:00)
== END 2017-03-17 10:39 | disposition expired | DRG 189 ==
LOC: 2ANU 13:53
PROVIDERS: ADMIT Family Medicine Hospice and Palliative Medicine; ATTEND Family Medicine Hospice and Palliative Medicine